=== PATIENT | female | born 1960 | race Caucasian/White ===

== ENCOUNTER 2016-09-01 12:24 | Emergency (ER) | payer OTHER ==
[2016-09-01 12:42] VITALS: BMI 22.0
[2016-09-01] MEDS ORDERED: MAG HYDROX/AL HYDROX/SIMETH 30 ML UNIT-DOSE CUP PO ONE (14:45)
[2016-09-01] MEDS ORDERED: FAMOTIDINE 20 MG/50 ML IVPB 50 ML IVPB ONE ×2 (14:45→14:52)
[2016-09-01] MEDS ORDERED: SODIUM CHLORIDE 1,000 ML IV STA ×2 (14:47→15:46)
[2016-09-01] MEDS ORDERED: ACETAMINOPHEN 325 MG TABLET (FP) PO ONE (14:50)
[2016-09-01] MEDS ORDERED: MAG HYDROX/AL HYDROX/SIMETH 30 ML UNIT-DOSE CUP ONE (14:52)
[2016-09-01] MEDS ORDERED: ACETAMINOPHEN 325 MG TABLET (FP) ONE (14:52)
--- NOTE | 2016-09-01 15:07 | PDOC ---
History of Present Illness - General Chief Complaint: Nausea Stated Complaint: NAUSEA,fever, diabetic Time Seen by Provider: 09/01/16 14:31 History Source: Patient, Family Exam Limitations: Language Barrier - History of Present Illness Initial Comments: 09/01/16 14:59 This is a 55 yo F with pmh of IDDM 2 who presents with nausea and mild epigastric burning since Thu. symptoms have started after a meal, have been constant and aggravated by po intake, which has been very limited since onset. She experienced one episode of nbnb vomiting (small amt) this morning. She has been constipated for 3 days and had a normal nonbloody nonmelenous BM prior to that. She denies dysuria, flank pain, f/c, h/a, chest pain, sob. 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 She does not take nsaids. low grade fever in er 09/01/16 15:09 Past History - Past Medical History Allergies/Adverse Reactions: Allergies Allergy/AdvReac Type Severity Reaction Status Date / Time aspirin Allergy Swelling Verified 09/01/16 12:38 Home Medications: Ambulatory Orders Insulin (Levemir) [Levemir Flexpen -] 30 units SQ DAILY 09/01/16 Mag Hydrox/Al Hydrox/Simeth [Maalox Advanced Suspension] 148 ml PO DAILY #30 oral.susp 09/01/16 Metformin HCl [Glucophage] 1,000 mg PO DAILY 09/01/16 Ranitidine HCl [Zantac] 50 mg IJ BID #60 vial 09/01/16 Diabetes: Yes (iddm) - Psycho/Social/Smoking Cessation Hx Anxiety: No Suicidal Ideation: No Smoking Status: No Smoking History: Never smoked Have you smoked in the past 12 months: No Number of Cigarettes Smoked Daily: 0 Information on smoking cessation initiated: No Hx Alcohol Use: No Drug/Substance Use Hx: No Substance Use Type: None Review of Systems - Review of Systems Able to Perform ROS?: Yes Is the patient limited Greenlandic proficient: Yes Constitutional: Yes: Weight Stable. No: Chills, Fever HEENTM: No: Throat Pain, Difficulty Swallowing Respiratory: No: Cough, Orthopnea, Shortness of Breath Cardiac (ROS): No: Chest Pain, Edema, Irregular Heart Rate, Lightheadedness ABD/GI: Yes: Constipated, Nausea, Vomiting, Abdominal cramping. No: Abdominal Distended, Diarrhea, Difficulty Swallowing, Rectal Bleeding, Tarry Stools : No: Dysuria, Flank Pain Musculoskeletal: No: Joint Swelling Integumentary: No: Bruising, Rash Neurological: No: Headache, Numbness, Paresthesia Psychiatric: No: Anxiety, Stressors Endocrine: No: Change in Weight Hematologic/Lymphatic: No: Anemia, Blood Clots, Easy Bleeding, Easy Bruising All Other Systems: Reviewed and Negative *Physical Exam - Vital Signs Last Vital Signs Temp Pulse Resp BP Pulse Ox 100.3 F H 91 H 18 109/76 100 09/01/16 12:39 09/01/16 12:39 09/01/16 12:39 09/01/16 12:39 09/01/16 12:39 - Physical Exam Comments: 09/01/16 15:03 Geberal: aao x3, nad HEENT: perrla eomi, sclera anicteric cv: rrr s1s2 pulm: cta b/l GI: soft, nontender, nondistended, normoactive bowel sounds, no mass, no organomegaly Neuro: CN II-XII grossly intact Extremities: nonedematous ED Treatment Course - LABORATORY CBC & Chemistry Diagram: 09/01/16 15:00 09/01/16 15:00 - RADIOLOGY Radiology Studies Ordered: Category Date Time Status CHEST X-RAY PORTABLE* [RAD] Stat Radiology 09/01/16 14:44 Ordered Medical Decision Making - Medical Decision Making 09/01/16 15:07 patient presents with clinical picture most consistent with mild gastritis, possible viral gastroenteritis. r/o pancreotitis, esopagitis, acs. -cbc diff, cmp, lipase, trop, ekg, chr -pepcid, maalox, 1L ivf NS 09/01/16 15:40 CXR unremarkable for intrathoracic or mediastinal pathology mild leukocytosis 10.6 with slight left shift cmp unremarkable other than Glucose 320 and pseudo hyponatremia. patient states she forgot to take metformin at home. Will not give insulin, rather patient can take her metformin at home later. Will give another L of IV NS 09/01/16 15:41 09/01/16 15:48 09/01/16 16:09 EKG unremarkable. patient feels better after maalox and pepcid and states she is hungry. she likely has an ulcer and should f/u with pcp/gi, get H pylori testing and take zantac, maalox at home. *DC/Admit/Observation/Transfer Diagnosis at time of Disposition: Gastritis - Discharge Dispostion Disposition: HOME Condition at time of disposition: Good Admit: No - Prescriptions Prescriptions: Mag Hydrox/Al Hydrox/Simeth [Maalox Advanced Suspension] 148 ml PO DAILY #30 oral.susp Ranitidine HCl [Zantac] 50 mg IJ BID #60 vial - Patient Instructions Printed Discharge Instructions: Gastritis Additional Instructions: Your stomach discomfort and nausea are probably due to gastritis. please take Maalox once a day and Zantac twice a day. follow up with primary doctor to get tested for H pylori bacteria and possibly see a Hardware Sales Assistant Take metformin today return to ER if symptoms worsen - Post Discharge Activity Work/School Note: Back to Work
[2016-09-01 15:08] LABS: BASOPHIL 0.5 % (0-2.0); MCH 27.5 pg (25.7-33.7); MCHC 33.1 g/dl (32.0-36.0); MEAN CELL VOLUME 82.9 fl (80-96); MEAN PLT VOLUME 8.7 fl (7.5-11.1); NEUTROPHILS 78.5 % (42.8-82.8); PLATELET COUNT 254 K/MM3 (134-434); RDW 12.2 % (11.6-15.6); WHITE BLOOD COUNT 10.6 K/mm3 (4.0-10.0)
--- NOTE | 2016-09-01 15:21 | PDOC ---
Attending Attestation - Resident Resident Name: ValentinaTia - ED Attending Attestation I have performed the following: I have examined & evaluated the patient, The case was reviewed & discussed with the resident, I agree w/resident's findings & plan, Exceptions are as noted - HPI HPI: 09/01/16 15:20 55-year-old female with history of diabetes, hyperlipidemia presents with 3 days of nausea, vomiting. She reports of intermittent epigastric discomfort and noticed tactile fevers. Patient is a high school music teacher. Denies chest pain or shortness of breath. Denies abdominal pain at this time. - Physicial Exam PE: 09/01/16 15:20 GENERAL: Awake, alert, and fully oriented, in no acute distress. HEAD: No signs of trauma EYES: PERRLA, EOMI, sclera anicteric, conjunctiva clear ENT: Auricles normal inspection, hearing grossly normal, nares patent, oropharynx clear without exudates. NECK: Normal ROM, supple, no lymphadenopathy, JVD, or masses LUNGS: Breath sounds equal, clear to auscultation bilaterally. No wheezes, and no crackles HEART: Regular rate and rhythm, normal S1 and S2, no murmurs, rubs or gallops ABDOMEN: Soft, nontender, normoactive bowel sounds. No guarding, no rebound. No masses EXTREMITIES: Normal range of motion, no edema. No clubbing or cyanosis. No cords, erythema, or tenderness NEUROLOGICAL: Cranial nerves II through XII grossly intact. Normal speech, normal gait SKIN: Warm, Dry, normal turgor, no rashes or lesions noted. - Medical Decision Making 09/01/16 15:20 I agree with the resident that this is likely viral gastritis. Patient has a temperature of 100.3 with some nausea and vomiting. I have low suspicion for acute coronary syndrome. However, we'll obtain one troponin 1 EKG. We'll obtain labs including a lipase. If workup is negative the patient reports feeling better, the patient may be discharged home with symptomatic care. 09/01/16 16:15 ECG is no ischemic changes.
[2016-09-01 15:38] LABS: ALBUMIN 3.5 g/dl (3.4-5.0); ANION GAP 7 (8-16); BILIRUBIN,TOTAL 0.5 mg/dL (0.2-1.0); CALCIUM 9.5 mg/dL (8.5-10.1); CO2 29 mmol/L (21-32); CREATININE 0.9 mg/dL (0.55-1.02); SGOT/AST 18 U/L (15-37); SGPT/ALT 30 U/L (12-78)
[2016-09-01 15:39] LABS: ALK PHOS 114 U/L (45-117); TOT PROT 6.9 g/dl (6.4-8.2); TROPONIN I < 0.02 ng/ml (0.00-0.05)
[2016-09-01 15:41] LABS: GLUCOSE,RANDOM 320 mg/dL (74-106)
[2016-09-01 16:53] VITALS: BP 140/90; PULSE 78; TEMP 98.7
--- NOTE | 2016-09-02 14:40 | EKG ---
Test Reason : Blood Pressure : / mmHG Vent. Rate : 085 BPM Atrial Rate : 085 BPM P-R Int : 132 ms QRS Dur : 084 ms QT Int : 376 ms P-R-T Axes : 064 044 036 degrees QTc Int : 447 ms NORMAL SINUS RHYTHM NORMAL ECG WHEN COMPARED WITH ECG OF 21-AUG-2011 17:52, NO SIGNIFICANT CHANGE WAS FOUND Confirmed by BRANDT DAMICO MD ([id number]) on 09/02/2016 2:40:21 PM Referred By: Confirmed By:BRANDT DAMICO MD
== END 2016-09-01 17:01 | disposition home or self-care (01) ==
LOC: JER 12:24
PROC: 3E0337Z Introduction of Electrolytic and Water Balance Substance into Peripheral Vein, Percutaneous Approach (ICD-10-PCS; principal; 2016-09-01)
PROC: 3E033GC Introduction of Other Therapeutic Substance into Peripheral Vein, Percutaneous Approach (ICD-10-PCS; 2016-09-01)
DX: K29.70 Gastritis, unspecified, without bleeding (principal)
CPT/HCPCS: 36415; 71010-TC; 80053; 82550; 83690; 84484; 85025; 93005; 93010; 96361; 96365; 99284-25

== ENCOUNTER 2016-10-17 18:28 | Emergency (ER) | payer OTHER ==
[2016-10-17 18:35] VITALS: BMI 19.8
--- NOTE | 2016-10-17 18:54 | PDOC ---
History of Present Illness <Lexie Garcia - Last Filed: 10/17/16 20:50> - General History Source: Patient, Family Exam Limitations: Language Barrier - History of Present Illness Initial Comments: 10/17/16 19:52 This 55yo F with PMHX DM and 2 C-sections presents due to numbness and tingling of her right fingertips and right foot & toes. States this began 1 week ago. Has been intermittent (lasting 5mins then returning 4-5hrs later), and has been getting better. Nothing makes it worse, and only stretching it makes it better. Pt states she has episodes of garbled speech (confirmed by her son), one episode of diarrhea 1 week ago. Denies weakness, pain, digits becoming cyanotic/ blue, CP, SOB, dysphagia, vision changes, BOWMAN, N/V, abdominal pain, constipation , urinary changes/burning. States she is allergic to ASA Denies tobacco or alcohol use. Timing/Duration: 1 week Associated Symptoms: denies: chest pain, cough, diaphoresis, fever/chills, headaches, loss of appetite, nausea/vomiting, shortness of breath, syncope, weakness <Loi Bains - Last Filed: 10/17/16 22:53> - General Chief Complaint: CVA/TIA Stated Complaint: NUMBNESS IN FINGERS Time Seen by Provider: 10/17/16 18:53 NIH Stroke Scale - Last Known Well Date/Time & Onset Date Last Known Well: 10/09/16 - Initial Evaluation Level of consciousness: Alert Ask patient the month and their age: Answers both correctly Ask patient to open & close eyes; make fist and let go: Obeys both correctly Best gaze (horizontal eye movement): Normal Visual field testing: No visual field loss Facial paresis (Show teeth/raise eyebrows/close eyes tight): Normal symmetrical movement Motor Function: Left Arm: Normal Motor Function: Right Arm: Normal (extends arm 90 (or 45) degrees for 10 seconds without drift Motor Function: Left Leg: Normal (extends leg 30 degrees for 5 seconds without drift) Motor Function: Right Leg: Normal (extends leg 30 degrees for 5 seconds without drift) Limb Ataxia: No ataxia Sensory(Use pinprick test arms,legs,trunk,face/side to side): Normal Best language (Describe picture, name items, read sentences): Mild to moderate aphasia Dysarthria (read several words): Mild to moderate slurring of words Extinction and Inattention: No abnormality - Total Score NIH Stroke Scale Score: 2 <Loi Bains - Last Filed: 10/17/16 22:53> Past History <Lexie Garcia - Last Filed: 10/17/16 20:50> - Travel Traveled outside of the country in the last 30 days: No Close contact w/someone who was outside of country & ill: No - Past Medical History Cancer: No Cardiac Disorders: No Hx Myocardial Infarction: No CVA: No Diabetes: Yes (iddm) HTN: No Lung CA: No - Immunization History Immunization Up to Date: Yes - Psycho/Social/Smoking Cessation Hx Anxiety: No Suicidal Ideation: No Smoking Status: No Smoking History: Never smoked Have you smoked in the past 12 months: No Number of Cigarettes Smoked Daily: 0 Hx Alcohol Use: No Drug/Substance Use Hx: No Substance Use Type: None <Loi Bains - Last Filed: 10/17/16 22:53> - Past Medical History Allergies/Adverse Reactions: Allergies Allergy/AdvReac Type Severity Reaction Status Date / Time aspirin Allergy Swelling Verified 10/17/16 18:32 Home Medications: Ambulatory Orders Insulin Glargine,Hum.rec.anlog [Lantus Solostar PEN (NF)] 30 units SQ HS Levofloxacin [Levaquin] 750 mg PO DAILY #10 tablet 10/17/16 Review of Systems - Review of Systems Able to Perform ROS?: Yes Is the patient limited Welsh proficient: Yes Constitutional: No: Chills, Diaphoresis, Fever, Weakness HEENTM: Yes: Other (perioral numbness). No: Eye Pain, Blurred Vision, Recent change in vision, Double Vision, Ear Pain, Tinnitus, Difficulty Swallowing, Mouth Swelling Respiratory: No: Cough, Shortness of Breath, Productive cough Cardiac (ROS): No: Chest Pain, Irregular Heart Rate, Lightheadedness, Palpitations, Syncope ABD/GI: No: Constipated, Nausea, Vomiting, Abdominal cramping : No: Burning, Dysuria, Discharge Musculoskeletal: No: Back Pain, Joint Pain, Muscle Pain, Muscle Weakness, Joint Stiffness Neurological: Yes: Numbness, Paresthesia, Tingling. No: Headache, Pre-Existing Deficit, Seizure, Tremors, Weakness, Unsteady Gait, Ataxia, Dizziness All Other Systems: Reviewed and Negative <Loi Bains - Last Filed: 10/17/16 22:53> *Physical Exam - Vital Signs Last Vital Signs Temp Pulse Resp BP Pulse Ox 98.6 F 93 H 18 119/67 99 10/17/16 18:32 10/17/16 18:32 10/17/16 18:32 10/17/16 18:32 10/17/16 18:56 <RadhaLexie - Last Filed: 10/17/16 20:50> - Vital Signs Last Vital Signs Temp Pulse Resp BP Pulse Ox 98.6 F 93 H 18 119/67 99 10/17/16 18:32 10/17/16 18:32 10/17/16 18:32 10/17/16 18:32 10/17/16 18:32 - Physical Exam General Appearance: Yes: Nourished, Appropriately Dressed HEENT: positive: EOMI, DINA, Normal Voice, Symmetrical, Pharynx Normal, Hearing Grossly Normal. negative: Pale Conjunctivae, Scleral Icterus (R), Scleral Icterus (L), Muffled/Hoarse voice, Pharyngeal Erythema, Tonsillar Exudate, Tonsillar Erythema, Excessive drooling Neck: positive: Trachea midline Respiratory/Chest: positive: Lungs Clear, Normal Breath Sounds. negative: Rapid RR, Decreased Breath Sounds, Crackles, Rales, Rhonchi, Stridor, Wheezing Cardiovascular: positive: Regular Rhythm, Regular Rate. negative: Murmur, Diastolic Murmur, Systolic Murmur, Irregularly Irregular, Irregular Gastrointestinal/Abdominal: positive: Normal Bowel Sounds, Soft. negative: Tenderness, Hepatomegaly, Spleenomegaly Lymphatic: negative: Adenopathy, Tenderness Musculoskeletal: positive: Normal Inspection. negative: CVA Tenderness, Decreased Range of Motion, Muscle Spasm, Vertebral Tenderness Extremity: positive: Normal Capillary Refill Neurologic: positive: machinist helper II-XII NML intact, Fully Oriented, Alert, Normal Mood/ Affect, Normal Response, Motor Strength 5/5. negative: EOM Palsy, Facial Droop , Numbness, Sensory Deficit, Confused, Disoriented, Depressed Affect <Loi Bains - Last Filed: 10/17/16 22:53> Heart Score/ECG Review - ECG Intrepretation Comment:: 10/17/16 20:14 ECG obtained a 19:57 Normal sinus at 91 bpm <Lexie Garcia - Last Filed: 10/17/16 20:50> ED Treatment Course - LABORATORY CBC & Chemistry Diagram: 10/17/16 19:53 10/17/16 19:53 - ADDITIONAL ORDERS Additional order review: 10/17/16 19:53 RBC 4.37 MCV 84.8 MCHC 33.6 RDW 12.9 MPV 7.6 D Neutrophils % 62.3 D Lymphocytes % 26.7 D Monocytes % 8.9 Eosinophils % 0.9 D Basophils % 1.2 - RADIOLOGY Radiograph Interpretation: 10/17/16 20:33 Chest X-ray as reviewed by Dr. Hernandez reports no acute pathology. 10/17/16 20:[address] as reviewed by Dr. Hernandez reports no acute intracranial lesion or hemorrhage. - Medications Given in the ED: ED Medications Discontinued Medications Generic Name Dose Route Start Last Admin Trade Name Freq PRN Reason Stop Dose Admin Pregabalin 75 mg 10/17/16 19:50 10/17/16 20:05 Lyrica - PO 10/17/16 19:51 75 mg ONCE ONE Administration <Lexie Garcia - Last Filed: 10/17/16 20:50> - LABORATORY CBC & Chemistry Diagram: 10/17/16 19:53 10/17/16 19:53 <Loi Bains - Last Filed: 10/17/16 22:53> Medical Decision Making - Medical Decision Making 10/17/16 20:00 This 55yo F with past medical hx DM and 2 C-sections presents due to numbness and tingling of her right fingertips and right ankle to toes. Diabetic neuropathy -IVF, CBC w/ diff, BMP, glucose levels, HbA1C level -lyrica r/o stroke -NIHSS: 2 -CT head w/o contrast -neuro checks q2h r/o UTI -U/A, CXR r/o cardiac etiology -ECG 10/17/16 21:09 Pt's son endorses that his mother has not taken her DM medication for 3 months because she ran out and did not have health insurance to afford meds or doctor visit. States she has insurance now, and will return to PCP Dr. Kerns Thursday for refill. Also advised patient and family to be compliant with medication and antibiotics. <Loi Bains - Last Filed: 10/17/16 22:53> *DC/Admit/Observation/Transfer - Attestations Scribe Attestion: 10/17/16 20:14 Documentation prepared by Lexie Garcia, acting as medical review specialist for Loi Bains DO. <Lexie Garcia - Last Filed: 10/17/16 20:50> - Discharge Dispostion Admit: No - Attestations Physician Attestion: 10/17/16 18:54 I, Dr. Loi Bains, attest that this document has been prepared under my direction and personally reviewed by me in its entirety. I further attest, that it accurately reflects all work, treatment, procedures and medical decision -making performed by me. <Loi Bains - Last Filed: 10/17/16 22:53> Diagnosis at time of Disposition: Medical non-compliance, Urinary (tract) obstruction Peripheral neuropathy Qualifiers: Peripheral neuropathy type: polyneuropathy, unspecified Qualified Code(s): G62.9 - Polyneuropathy, unspecified Diabetes mellitus out of control Qualifiers: Diabetes mellitus type: type 2 Diabetes mellitus complication status: with unspecified complications Diabetes mellitus fpc insulin use: with fpc use Qualified Code(s): E11.8 - Type 2 diabetes mellitus with unspecified complications - Discharge Dispostion Disposition: HOME Condition at time of disposition: Improved - Prescriptions Prescriptions: Levofloxacin [Levaquin] 750 mg PO DAILY #10 tablet - Referrals Referrals: Fernie Kerns MD [Primary Care Provider] - - Patient Instructions Printed Discharge Instructions: Urinary Tract Infection, DI for Urinary Tract Infection (UTI), Diabetic Neuropathy, Complications of Type 2 Diabetes Additional Instructions: Estefania- You have to take better care of yourself. Keep your appointment and get back on your medications as soon as possible. Return to us if worse or new problems occur. Best- Dr. Loi Bains
[2016-10-17] MEDS ORDERED: PREGABALIN 100 MG CAPSULE PO ONE (19:50)
[2016-10-17 19:58] LABS: BASOPHIL 1.2 % (0-2.0); EOSINOPHIL 0.9 % (0-4.5); MCH 28.5 pg (25.7-33.7); MCHC 33.6 g/dl (32.0-36.0); MEAN CELL VOLUME 84.8 fl (80-96); MEAN PLT VOLUME 7.6 fl (7.5-11.1); NEUTROPHILS 62.3 % (42.8-82.8); PLATELET COUNT 313 K/MM3 (134-434); RDW 12.9 % (11.6-15.6); WHITE BLOOD COUNT 8.7 K/mm3 (4.0-10.0)
[2016-10-17] MEDS ORDERED: PREGABALIN 50 MG CAPSULE ONE (19:58)
[2016-10-17] MEDS ORDERED: PREGABALIN 25 MG CAPSULE ONE (19:59)
[2016-10-17 20:21] LABS: URINE APPEARANCE CLEAR; URINE BILIRUBIN NEGATIVE (NEGATIVE); URINE BLOOD NEGATIVE (NEGATIVE); URINE COLOR LTYELLOW; URINE GLUCOSE (UA) 3+ (NEGATIVE); URINE KETONE NEGATIVE (NEGATIVE); URINE LEUK ESTERASE TRACE (NEGATIVE); URINE NITRITE POSITIVE (NEGATIVE); URINE PROTEIN NEGATIVE (NEGATIVE); URINE UROBILINOGEN NEGATIVE mg/dL (0.2-1.0)
[2016-10-17 20:23] LABS: ALK PHOS 126 U/L (45-117); ANION GAP 5 (8-16); BILIRUBIN,TOTAL 0.2 mg/dL (0.2-1.0); CALCIUM 9.1 mg/dL (8.5-10.1); CO2 28 mmol/L (21-32); CREATININE 0.9 mg/dL (0.55-1.02); SGOT/AST 8 U/L (15-37); SGPT/ALT 23 U/L (12-78); TOT PROT 6.6 g/dl (6.4-8.2)
[2016-10-17 20:27] LABS: GLUCOSE,RANDOM 345 mg/dL (74-106)
[2016-10-17 20:27] LABS: URINE BACTERIA FEW /hpf (NONE SEEN); URINE MUCUS RARE; URINE RBC 1 /hpf (0-3); URINE WBC 13 /hpf (3-5)
[2016-10-17] MEDS ORDERED: SODIUM CHLORIDE 2,000 ML IV STA (20:27)
[2016-10-17] MEDS ORDERED: LEVOFLOXACIN 750 MG IVPB 150 ML IVPB ONE ×2 (20:32→20:55)
[2016-10-17 23:02] VITALS: BP 125/80; PULSE 80; TEMP 98.2
--- NOTE | 2016-10-19 08:18 | EKG ---
Test Reason : Blood Pressure : / mmHG Vent. Rate : 091 BPM Atrial Rate : 091 BPM P-R Int : 128 ms QRS Dur : 080 ms QT Int : 352 ms P-R-T Axes : 059 052 039 degrees QTc Int : 432 ms NORMAL SINUS RHYTHM NORMAL ECG WHEN COMPARED WITH ECG OF 01-SEP-2016 15:54, NO SIGNIFICANT CHANGE WAS FOUND Confirmed by FERNANDO STILES MD ([id number]) on 10/19/2016 8:18:05 AM Referred By: Confirmed By:FERNANDO STILES MD
== END 2016-10-17 23:03 | disposition home or self-care (01) ==
LOC: JER 18:28
PROC: 3E03329 Introduction of Other Anti-infective into Peripheral Vein, Percutaneous Approach (ICD-10-PCS; principal; 2016-10-17)
PROC: 3E0337Z Introduction of Electrolytic and Water Balance Substance into Peripheral Vein, Percutaneous Approach (ICD-10-PCS; 2016-10-17)
DX: E11.40 Type 2 diabetes mellitus with diabetic neuropathy, unspecified (principal); Z79.4 Long term (current) use of insulin; Z91.14 Patient's other noncompliance with medication regimen; N13.9 Obstructive and reflux uropathy, unspecified; Z88.6 Allergy status to analgesic agent
CPT/HCPCS: 36415; 70450-TC; 71020-TC; 80053; 81003; 81015; 83036; 85025; 87086; 87186; 93005; 93010; 99285-25

== ENCOUNTER 2016-11-24 13:44 | Emergency (ER) | payer OTHER ==
[2016-11-24 13:50] VITALS: BMI 19.0
--- NOTE | 2016-11-24 14:31 | PDOC ---
History of Present Illness - General History Source: Patient, Family Exam Limitations: No Limitations - History of Present Illness Initial Comments: 11/24/16 16:01 The patient is a 55 year old female, with a significant past medical history of diabetes, who presents to the emergency department complaining of numbness and tingling for approximately 2 weeks. The patient reports she has noted numbness and tingling to the right arm and pain in her calves bilaterally. As per son, patient reports she cannot move or talk when she experiences her episodes of numbness. Currently patient reports pain in her fingers, right worse than left. Patient reports she was recently started on Metformin and her sugar level usually runs in the 200s. Patient admits she does not check her sugar daily. She reports intermittent chills and diaphoresis. She denies any chest pain, shortness of breath, or palpitations. She denies any fever, cough, headache, dizziness, or back pain. She denies any dysuria, hematuria, frequency, or urgency. She denies any nausea, vomiting, diarrhea, constipation, melena, or hematochezia. As per son, the patient has been losing weight during the past 5 years. Patient denies any recent travel, sick contacts, or recent hospitalizations. Allergies: Aspirin Past Surgical History: None reported Social History: Non smoker. No ETOH or recreational drug use. PCP: Dr. Kerns Manager Mobility: Dr. Arias <Johan Herring - Last Filed: 11/24/16 18:07> <Charlotte Castañeda - Last Filed: 11/24/16 18:09> - General Chief Complaint: Pain Stated Complaint: LEG PAIN Past History <Johan Herring - Last Filed: 11/24/16 18:07> - Past Medical History Cancer: No Cardiac Disorders: No CVA: No Diabetes: Yes (iddm) HTN: No Lung CA: No - Immunization History Immunization Up to Date: Yes - Psycho/Social/Smoking Cessation Hx Anxiety: No Suicidal Ideation: No Smoking Status: No Smoking History: Never smoked Have you smoked in the past 12 months: No Number of Cigarettes Smoked Daily: 0 Information on smoking cessation initiated: No Hx Alcohol Use: No Drug/Substance Use Hx: No Substance Use Type: None <Charlotte Castañeda - Last Filed: 11/24/16 18:09> - Past Medical History Allergies/Adverse Reactions: Allergies Allergy/AdvReac Type Severity Reaction Status Date / Time aspirin Allergy Swelling Verified 11/24/16 13:50 Home Medications: Ambulatory Orders Insulin Glargine,Hum.rec.anlog [Lantus Solostar PEN (NF)] 30 units SQ HS Review of Systems - Review of Systems Able to Perform ROS?: Yes Comments:: 11/24/16 16:03 GENERAL/CONSTITUTIONAL: Yes: +chills. No fever. No weakness. HEAD, EYES, EARS, NOSE AND THROAT: No change in vision. No ear pain or discharge. No sore throat. CARDIOVASCULAR: Yes: +diaphoresis. No chest pain or shortness of breath. RESPIRATORY: No cough, wheezing, or hemoptysis. GASTROINTESTINAL: No nausea, vomiting, diarrhea or constipation. GENITOURINARY: No dysuria, frequency, or change in urination. MUSCULOSKELETAL: Yes: +hand pain, +right arm numbness/tingling, +calf pain bilaterally. No joint or muscle swelling or pain. No neck or back pain. SKIN: No rash NEUROLOGIC: Yes: +numbness/+tingling to the upper extremities.No headache, vertigo, loss of consciousness, or change in strength/sensation. ENDOCRINE: Yes: +increased weightloss. No increased thirst. HEMATOLOGIC/LYMPHATIC: No anemia, easy bleeding, or history of blood clots. ALLERGIC/IMMUNOLOGIC: No hives or skin allergy. <Johan Herring - Last Filed: 11/24/16 18:07> *Physical Exam - Vital Signs Last Vital Signs Temp Pulse Resp BP Pulse Ox 98.5 F 121 H 18 95/57 98 11/24/16 13:46 11/24/16 13:46 11/24/16 13:46 11/24/16 13:46 11/24/16 13:46 - Physical Exam Comments: 11/24/16 16:07 GENERAL: Awake, alert, and fully oriented, in no acute distress HEAD: No signs of trauma EYES: PERRLA, EOMI, sclera anicteric, conjunctiva clear ENT: Auricles normal inspection, hearing grossly normal, nares patent, oropharynx clear without exudates. Moist mucosa NECK: Normal ROM, supple, no lymphadenopathy, JVD, or masses LUNGS: Breath sounds equal, clear to auscultation bilaterally. No wheezes, and no crackles HEART: Regular rate and rhythm, normal S1 and S2, no murmurs, rubs or gallops ABDOMEN: Soft, nontender, normoactive bowel sounds. No guarding, no rebound. No masses EXTREMITIES: Normal range of motion, no edema. No clubbing or cyanosis. 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 Cranial nerves II through XII grossly intact. Normal speech, normal gait. Negative tinels, negative phalens. SKIN: Warm, Dry, normal turgor, no rashes or lesions noted. <Johan Herring - Last Filed: 11/24/16 18:07> - Vital Signs Last Vital Signs Temp Pulse Resp BP Pulse Ox 98.5 F 121 H 18 95/57 98 11/24/16 13:46 11/24/16 13:46 11/24/16 13:46 11/24/16 13:46 11/24/16 13:46 <Charlotte Castañeda - Last Filed: 11/24/16 18:09> ED Treatment Course - LABORATORY CBC & Chemistry Diagram: 11/24/16 14:52 11/24/16 14:52 - ADDITIONAL ORDERS Additional order review: Laboratory Results 11/24/16 11/24/16 14:52 14:52 Sodium 132 L Potassium 4.2 Chloride 94 L Carbon Dioxide 24 Anion Gap 14 BUN 19 H D Creatinine 0.9 Creat Clearance w eGFR > 60 Random Glucose 414 H* Calcium 9.7 Magnesium 1.9 Total Bilirubin 0.6 D AST 6 L D ALT 14 D Alkaline Phosphatase 77 D Total Protein 6.7 Albumin 3.4 TSH 1.60 11/24/16 14:52 RBC 4.75 MCV 82.9 MCHC 34.8 RDW 12.9 MPV 8.5 D Neutrophils % 74.4 Lymphocytes % 16.2 D Monocytes % 8.4 Eosinophils % 0.2 Basophils % 0.8 - RADIOLOGY Radiograph Interpretation: 11/24/16 18:06 EXAM: Bilateral lower extremity venous ultrasound INTERPRETED BY: Dr. Galloway REVIEWED BY: Dr. Castañeda IMPRESSION: There is no sonographic evidence of deep vein thrombosis involving either leg. The greater saphenous veins appear patent bilaterally. The smaller superficial veins demonstrate no obvious thrombosis. If there is clinical concern for possible isolated deep calf vein thrombosis or if there is a clinical diagnosis of uncomplicated superficial thrombophlebitis, then correlation with follow up sonography is suggested in approximately 3-7 days. There is no obvious popliteal cyst. No DVT is identified involving either leg. - Medications Given in the ED: ED Medications Discontinued Medications Generic Name Dose Route Start Last Admin Trade Name Saadia PRN Reason Stop Dose Admin Sodium Chloride 1,000 ml 11/24/16 14:49 11/24/16 15:05 Normal Saline - IV 11/24/16 14:50 1,000 ml ONCE ONE Administration <Johan Herring - Last Filed: 11/24/16 18:07> - LABORATORY CBC & Chemistry Diagram: 11/24/16 14:52 11/24/16 14:52 <Charlotte Castañeda - Last Filed: 11/24/16 18:09> Medical Decision Making - Medical Decision Making 11/24/16 18:01 55yo female with DM now with intermittent episodes of numbness and calf pain -labs -suspect poss diabetic neuropathy -dvt study of LE -ivf hydration -monitor and reassess 11/24/16 18:02 discussed lab results with the patient. pt states feeling better discussed dvt study results. negative for dvt. Discussed glucose control. Pt will need to follow up with her PMD this week. Discussed need to check glucose QID at home and keep a book of readings. Recommended following up with PMD with the book this week. Recommended pt see her eye doctor and her inserter soon as well. Discussed dietary changes to assist with glucose control. Pt and son verbalize all understanding. Pt stable for d/c to home. Answered all questions. Discussed all reasons to return to the ED and need for follow up. <Charlotte Castañeda - Last Filed: 11/24/16 18:09> *DC/Admit/Observation/Transfer - Attestations Scribe Attestion: 11/24/16 18:08 Documentation prepared by Johan Herring, acting as medical insurance coding specialist for Charlotte Castañeda DO. <Johan Herring - Last Filed: 11/24/16 18:07> - Discharge Dispostion Admit: No - Attestations Physician Attestion: 11/24/16 18:05 I, Dr. Charlotte Castañeda, DO, attest that this document has been prepared under my direction and personally reviewed by me in its entirety. I further attest, that it accurately reflects all work, treatment, procedures and medical decision -making performed by me. <Charlotte Castañeda - Last Filed: 11/24/16 18:09> Diagnosis at time of Disposition: Hyperglycemia, Paresthesia - Discharge Dispostion Disposition: HOME Condition at time of disposition: Stable - Referrals Referrals: Fernie Kerns MD [Primary Care Provider] - - Patient Instructions Printed Discharge Instructions: How to Check Your Blood Glucose, Diabetic Neuropathy
[2016-11-24] MEDS ORDERED: SODIUM CHLORIDE 0.9% 1000 ML INFUS.BAG IV ONE ×3 (14:49→18:09)
[2016-11-24 15:28] LABS: BASOPHIL 0.8 % (0-2.0); EOSINOPHIL 0.2 % (0-4.5); MCH 28.9 pg (25.7-33.7); MCHC 34.8 g/dl (32.0-36.0); MEAN CELL VOLUME 82.9 fl (80-96); MEAN PLT VOLUME 8.5 fl (7.5-11.1); NEUTROPHILS 74.4 % (42.8-82.8); PLATELET COUNT 295 K/MM3 (134-434); RDW 12.9 % (11.6-15.6); WHITE BLOOD COUNT 11.3 K/mm3 (4.0-10.0)
[2016-11-24 15:38] LABS: ALBUMIN 3.4 g/dl (3.4-5.0); ALK PHOS 77 U/L (45-117); ANION GAP 14 (8-16); BILIRUBIN,TOTAL 0.6 mg/dL (0.2-1.0); CALCIUM 9.7 mg/dL (8.5-10.1); CO2 24 mmol/L (21-32); CREATININE 0.9 mg/dL (0.55-1.02); MAGNESIUM 1.9 mg/dL (1.8-2.4); SGOT/AST 6 U/L (15-37); SGPT/ALT 14 U/L (12-78); TOT PROT 6.7 g/dl (6.4-8.2)
[2016-11-24 15:44] LABS: GLUCOSE,RANDOM 414 mg/dL (74-106)
[2016-11-24 16:56] LABS: URINE APPEARANCE CLEAR; URINE BILIRUBIN NEGATIVE (NEGATIVE); URINE BLOOD 1+ (NEGATIVE); URINE COLOR STRAW; URINE GLUCOSE (UA) 3+ (NEGATIVE); URINE KETONE 1+ (NEGATIVE); URINE NITRITE NEGATIVE (NEGATIVE); URINE PROTEIN NEGATIVE (NEGATIVE); URINE UROBILINOGEN NEGATIVE mg/dL (0.2-1.0)
[2016-11-24 17:05] LABS: URINE HYALINE CAST 1 /lpf; URINE RBC 1 /hpf (0-3); URINE WBC 7 /hpf (3-5)
[2016-11-24] MEDS ORDERED: INSULIN (NOVOLOG) ASPART 100 UNITS/ML 10ML VIAL SQ ONE (17:24)
[2016-11-24 18:33] VITALS: TEMP 98.4
[2016-11-24 20:07] VITALS: BP 152/85; PULSE 105
== END 2016-11-24 20:07 | disposition home or self-care (01) ==
LOC: JER 13:44
DX: E11.65 Type 2 diabetes mellitus with hyperglycemia (principal); Z79.4 Long term (current) use of insulin; Z79.84 Long term (current) use of oral hypoglycemic drugs; M79.604 Pain in right leg; M79.605 Pain in left leg
CPT/HCPCS: 36415; 80053; 81003; 81015; 83735; 84443; 85025; 93970-TC; 99285-25

== ENCOUNTER 2018-05-12 20:13 | Emergency (ER) | payer OTHER ==
[2018-05-12 20:32] VITALS: BP 129/80; PULSE 100; TEMP 98.3; BMI 22.6
== END 2018-05-13 00:52 | disposition left against medical advice (07) ==
LOC: JER 20:13
DX: Z53.21 Procedure and treatment not carried out due to patient leaving prior to being seen by health care provider (principal)
CPT/HCPCS: 99281-25

== ENCOUNTER 2018-05-16 15:18 | Emergency (ER) | payer OTHER ==
[2018-05-16 15:30] VITALS: BMI 22.6
--- NOTE | 2018-05-16 16:14 | PDOC ---
History of Present Illness - General Chief Complaint: Headache Stated Complaint: HEADACHE/ COLD SYMPTOMS Time Seen by Provider: 05/16/18 16:13 History Source: Patient - History of Present Illness Initial Comments: 05/16/18 18:14 57-year-old female complaining of left temporal area headache for the last 4 days. Denies nasal congestion, fever/chills, nausea, vomiting, chest pain, dizziness, diaphoresis,abdominal pain, urinary symptoms. Past medical history of IDDM Past History - Past Medical History Allergies/Adverse Reactions: Allergies Allergy/AdvReac Type Severity Reaction Status Date / Time aspirin Allergy Swelling Verified 05/16/18 15:30 Home Medications: Ambulatory Orders Acetaminophen 650 mg PO QID PRN #30 tablet 05/16/18 Cephalexin Monohydrate [Keflex -] 500 mg PO BID #20 capsule 05/16/18 Insulin Glargine,Hum.rec.anlog [Basaglar Kwikpen U-100] 25 unit SQ HS 05/16/18 Cancer: No Cardiac Disorders: No CVA: No COPD: No Diabetes: Yes (iddm) HTN: No Lung CA: No - Immunization History Immunization Up to Date: Yes - Suicide/Smoking/Psychosocial Hx Smoking Status: No Smoking History: Never smoked Have you smoked in the past 12 months: No Number of Cigarettes Smoked Daily: 0 Hx Alcohol Use: No Drug/Substance Use Hx: No Substance Use Type: None Review of Systems - Review of Systems Able to Perform ROS?: Yes Is the patient limited Croatian proficient: No Constitutional: No: Symptoms Reported, See HPI, Chills, Diaphoresis, Fever, Loss of Appetite, Malaise, Night Sweats, Weakness, Weight Stable, Unintentional Wgt. Loss, Unexplained wgt Loss, Other HEENTM: No: Symptoms Reported, See HPI, Eye Pain, Blurred Vision, Tearing, Recent change in vision, Double Vision, Cataracts, Ear Pain, Ocular Prothesis, Ear Discharge, Nose Pain, Nose Congestion, Tinnitus, Nose Bleeding, Hearing Loss , Throat Pain, Throat Swelling, Mouth Pain, Dental Problems, Difficulty Swallowing, Mouth Swelling, Other Respiratory: No: Symptoms reported, See HPI, Cough, Orthopnea, Shortness of Breath, SOB with Exertion, SOB at Rest, Stridor, Wheezing, Productive cough, Hemoptysis, Other ABD/GI: No: Symptoms Reported, See HPI, Abdominal Distended, Abd. Pain w/ defecation, Blood Streaked Bowels, Constipated, Diarrhea, Difficulty Swallowing , Nausea, Poor Appetite, Poor Fluid Intake, Rectal Bleeding, Vomiting, Indigestion, Abdominal cramping, Tarry Stools, Other Neurological: Yes: Headache. No: Symptoms reported, See HPI, Numbness, Paresthesia, Pre-Existing Deficit, Seizure, Tingling, Tremors, Weakness, Unsteady Gait, Ataxia, Dizziness, Other Psychiatric: No: Anxiety, Depression, Frequent Crying, Stressors, Sleep Pattern Change, Emotional Problems, Mood Swings, Change in Appetite, Other *Physical Exam - Vital Signs Last Vital Signs Temp Pulse Resp BP Pulse Ox 98.0 F 99 H 18 145/83 99 05/16/18 15:28 05/16/18 15:28 05/16/18 15:28 05/16/18 15:28 05/16/18 15:28 - Physical Exam General Appearance: Yes: Appropriately Dressed Respiratory/Chest: positive: Lungs Clear, Normal Breath Sounds Moderate Sedation - Procedure Monitoring Vital Signs: Procedure Monitoring Vital Signs Temperature 98.0 F 05/16/18 15:28 Pulse Rate 99 H 05/16/18 15:28 Respiratory Rate 18 05/16/18 15:28 Blood Pressure 145/83 05/16/18 15:28 O2 Sat by Pulse Oximetry (%) 99 05/16/18 15:28 ED Treatment Course - LABORATORY CBC & Chemistry Diagram: 05/16/18 17:10 05/16/18 17:10 Progress Note - Progress Note Progress Note: A: headache; Hyperglycemia; uti P: labs ct head and sinus : negative IVF UA +2 WBC 101: will treat. likely the reason why patient is hyperglycemic. Medical Decision Making - Medical Decision Making 05/16/18 17:37 Ct sinuses& head : Within the base of the right maxillary sinus there are 2 ovoid soft tissue filling defects consistent with mucous retention cyst versus polyps. The remainder of the paranasal sinuses are clear. The visualized bony structures are within normal limits. The visualized soft tissues are unremarkable. Negative unenhanced CT of the brain. *DC/Admit/Observation/Transfer Diagnosis at time of Disposition: Hyperglycemia Headache Qualifiers: Headache type: unspecified Headache chronicity pattern: acute headache Intractability: not intractable Qualified Code(s): R51 - Headache UTI (urinary tract infection) Qualifiers: Urinary tract infection type: acute cystitis Hematuria presence: without hematuria Qualified Code(s): N30.00 - Acute cystitis without hematuria - Discharge Dispostion Disposition: HOME - Prescriptions Prescriptions: Acetaminophen 650 mg PO QID PRN #30 tablet PRN Reason: Pain Cephalexin Monohydrate [Keflex -] 500 mg PO BID #20 capsule - Referrals Referrals: Fernie Kerns MD [Primary Care Provider] - - Patient Instructions Printed Discharge Instructions: Urinary Tract Infection Additional Instructions: drink plenty of fluids take cephalexin as prescribed monitor your blood sugar at home. follow up with your doctor as soon as possible. - Post Discharge Activity Forms/Work/School Notes: Back to Work
[2018-05-16] MEDS ORDERED: IBUPROFEN 600 MG TABLET (FP) PO ONE (16:22)
[2018-05-16] MEDS ORDERED: SODIUM CHLORIDE 1,000 ML IV STA (16:44)
[2018-05-16 17:29] LABS: BASO % 0.9 % (0-2.0); EOS % 1.9 % (0-4.5); HEMATOCRIT 36.5 % (32.4-45.2); HEMOGLOBIN 12.5 GM/dL (10.7-15.3); LYMPH % 16.1 % (8-40); MCH 28.3 pg (25.7-33.7); MCHC 34.2 g/dl (32.0-36.0); MEAN CELL VOLUME 82.9 fl (80-96); MEAN PLT VOLUME 7.9 fl (7.5-11.1); MONO % 6.2 % (3.8-10.2); NEUT % 74.9 % (42.8-82.8); PLATELET COUNT 317 K/MM3 (134-434); RDW 13.3 % (11.6-15.6); WHITE BLOOD COUNT 11.5 K/mm3 (4.0-10.0)
[2018-05-16 17:30] LABS: URINE APPEARANCE CLOUDY; URINE BILIRUBIN NEGATIVE (<2.0 mg/dL); URINE COLOR YELLOW; URINE GLUCOSE (UA) 3+ (NEGATIVE); URINE KETONE NEGATIVE (NEGATIVE); URINE LEUK ESTERASE 2+ (NEGATIVE); URINE NITRITE NEGATIVE (NEGATIVE); URINE PROTEIN 1+ (NEGATIVE); URINE UROBILINOGEN NEGATIVE mg/dL (0.2-1.0)
[2018-05-16 17:40] LABS: EPI CELLS RARE /HPF (FEW); URINE BACTERIA FEW /hpf (NONE SEEN)
[2018-05-16 17:41] LABS: VENOUS PC02 52.3 mmHg (38-52); VENOUS PH 7.34 (7.32-7.42)
[2018-05-16 17:46] LABS: VENOUS PO2 12.9 mmHg (28-48)
[2018-05-16 17:49] LABS: ALBUMIN 3.7 g/dl (3.4-5.0); ALK PHOS 80 U/L (45-117); ANION GAP 7 MMOL/L (8-16); BILIRUBIN,TOTAL 0.3 mg/dL (0.2-1); BLOOD UREA NITROGEN 26 mg/dL (7-18); CALCIUM 9.5 mg/dL (8.5-10.1); CHLORIDE 102 mmol/L (98-107); CO2 29 mmol/L (21-32); CREATININE 1.2 mg/dL (0.55-1.3); POTASSIUM 4.2 mmol/L (3.5-5.1); SGOT/AST 11 U/L (15-37); SGPT/ALT 29 U/L (13-61); SODIUM 137 mmol/L (136-145); TOT PROT 7.6 g/dl (6.4-8.2)
[2018-05-16 18:00] LABS: GLUCOSE,RANDOM 351 mg/dL (74-106)
[2018-05-16] MEDS ORDERED: ACETAMINOPHEN 1000 MG/100 ML VIAL (NON FORMULARY) IVPB ONE (18:03)
[2018-05-16] MEDS ORDERED: SODIUM CHLORIDE 1,000 ML IV SCH (18:15)
[2018-05-16 18:18] LABS: ACETONE SERUM NEGATIVE (NEGATIVE)
[2018-05-16] MEDS ORDERED: ACETAMINOPHEN INJECTION 100 ML IVPB ONE (18:18)
[2018-05-16 19:24] VITALS: BP 130/82; PULSE 96; TEMP 98.1
[2018-05-16] MEDS ORDERED: CEPHALEXIN MONOHYDRATE 500 MG CAPSULE (UD) PO ONE (19:25)
[2018-05-16] MEDS ORDERED: CEPHALEXIN MONOHYDRATE 500 MG CAPSULE (UD) ONE (19:27)
== END 2018-05-16 19:41 | disposition home or self-care (01) ==
LOC: JER 15:18
PROC: 3E0337Z Introduction of Electrolytic and Water Balance Substance into Peripheral Vein, Percutaneous Approach (ICD-10-PCS; principal; 2018-05-16)
PROC: 3E033NZ Introduction of Analgesics, Hypnotics, Sedatives into Peripheral Vein, Percutaneous Approach (ICD-10-PCS; 2018-05-16)
DX: N39.0 Urinary tract infection, site not specified (principal); E11.65 Type 2 diabetes mellitus with hyperglycemia; Z79.4 Long term (current) use of insulin
CPT/HCPCS: 36415; 70450-TC; 70486-TC; 80053; 81003; 81015; 82009; 82803; 82962; 85025; 85651; 96361; 96374; 99284-25; J0131; J7030

== ENCOUNTER 2018-07-01 16:25 | Inpatient (IN) | payer OTHER ==
[2018-07-01] MEDS ORDERED: SODIUM CHLORIDE 1,000 ML IV STA ×2 (17:44→19:15)
[2018-07-01 18:04] LABS: BASO % 0.1 % (0-2.0); HEMATOCRIT 36.6 % (32.4-45.2); HEMOGLOBIN 12.1 GM/dL (10.7-15.3); LYMPH % 3.7 % (8-40); MCH 27.8 pg (25.7-33.7); MEAN CELL VOLUME 84.1 fl (80-96); MEAN PLT VOLUME 8.6 fl (7.5-11.1); MONO % 1.6 % (3.8-10.2); NEUT % 94.6 % (42.8-82.8); PLATELET COUNT 398 K/MM3 (134-434); RBC 4.35 M/mm3 (3.60-5.2); WHITE BLOOD COUNT 14.5 K/mm3 (4.0-10.0)
--- NOTE | 2018-07-01 18:12 | PDOC ---
History of Present Illness - General History Source: Patient Exam Limitations: Clinical Condition - History of Present Illness Initial Comments: 07/01/18 18:07 Patient with history of insulin-dependent diabetes brought in by son with complaint of five-day history of weakness which has been worsening since yesterday. Patient reported last taken her diabetes medication was yesterday. Patient on Humalog 25 mg at bedtime and metformin thousand milligrams twice a day for diabetes. Patient denies nausea, vomiting, abdominal pain, chest pain, shortness of breath, fever or chills. Son reported patient looked dehydrated. He should not has not been checking her glucose home. Denies any other symptoms Timing/Duration: other (5 days) <Norbert Lowe - Last Filed: 07/01/18 19:03> <Taylor Vera - Last Filed: 07/01/18 20:00> - General Chief Complaint: Weakness Stated Complaint: WEAKNESS Time Seen by Provider: 07/01/18 17:23 Past History - Past Medical History Cancer: No Cardiac Disorders: No CVA: No COPD: No Diabetes: Yes (iddm) HTN: No Lung CA: No - Immunization History Immunization Up to Date: Yes - Suicide/Smoking/Psychosocial Hx Smoking Status: No Smoking History: Never smoked Have you smoked in the past 12 months: No Number of Cigarettes Smoked Daily: 0 Information on smoking cessation initiated: No Hx Alcohol Use: No Drug/Substance Use Hx: No Substance Use Type: None <Norbert Lowe - Last Filed: 07/01/18 19:03> <Taylor Vera - Last Filed: 07/01/18 20:00> - Past Medical History Allergies/Adverse Reactions: Allergies Allergy/AdvReac Type Severity Reaction Status Date / Time aspirin Allergy Swelling Verified 07/01/18 17:40 Home Medications: Ambulatory Orders Insulin Glargine,Hum.rec.anlog [Fatou Main U-100] 25 unit SQ HS 05/16/18 Review of Systems - Review of Systems Able to Perform ROS?: Yes Is the patient limited Guamanian proficient: No Constitutional: Yes: Weakness, Unintentional Wgt. Loss. No: Chills, Fever HEENTM: No: Symptoms Reported, See HPI, Eye Pain, Blurred Vision, Tearing, Recent change in vision, Double Vision, Cataracts, Ear Pain, Ocular Prothesis, Ear Discharge, Nose Pain, Nose Congestion, Tinnitus, Nose Bleeding, Hearing Loss , Throat Pain, Throat Swelling, Mouth Pain, Dental Problems, Difficulty Swallowing, Mouth Swelling, Other Respiratory: No: Symptoms reported, See HPI, Cough, Orthopnea, Shortness of Breath, SOB with Exertion, SOB at Rest, Stridor, Wheezing, Productive cough, Hemoptysis, Other Cardiac (ROS): No: Symptoms Reported, See HPI, Chest Pain, Edema, Irregular Heart Rate, Lightheadedness, Palpitations, Syncope, Chest Tightness, Other ABD/GI: Yes: Poor Appetite. No: Constipated, Diarrhea, Nausea, Poor Fluid Intake, Vomiting, Abdominal cramping : No: Burning, Dysuria, Discharge, Frequency, Urgency Musculoskeletal: Yes: See HPI, Muscle Weakness Neurological: Yes: Weakness. No: Headache, Numbness, Paresthesia, Unsteady Gait , Ataxia, Dizziness All Other Systems: Reviewed and Negative <Norbert Lowe Carlton - Last Filed: 07/01/18 19:03> *Physical Exam - Vital Signs Last Vital Signs Temp Pulse Resp BP Pulse Ox 98.7 F 106 H 16 117/72 97 07/01/18 16:43 07/01/18 16:43 07/01/18 16:43 07/01/18 16:43 07/01/18 16:43 - Physical Exam Comments: 07/01/18 18:09 GENERAL: Well developed, well nourished. Awake and alert. No acute distress. HEENT: Normocephalic, atraumatic. PERRLA, EOMI. No conjunctival pallor. Sclera are non-icteric. Moist mucous membranes. Oropharynx is clear. NECK: Supple. Full ROM. CARDIOVASCULAR: Regular rate and rhythm. No murmurs, rubs, or gallops. Distal pulses are 2+ and symmetric. PULMONARY: No evidence of respiratory distress. Lungs clear to auscultation bilaterally. No wheezing, rales or rhonchi. ABDOMINAL: Soft. Non-tender. Non-distended. No rebound or guarding. No organomegaly. Normoactive bowel sounds. MUSCULOSKELETAL Normal range of motion at all joints. EXTREMITIES: No cyanosis. No clubbing. No edema. No calf tenderness. SKIN: Warm and dry. Normal capillary refill. dry skin turgor. No jaundice. NEUROLOGICAL: Alert, awake, appropriate. Gait is normal without ataxia. PSYCHIATRIC: Cooperative. Good eye contact. Appropriate mood General Appearance: Yes: Nourished, Appropriately Dressed. No: Apparent Distress <Norbert Lowe - Last Filed: 07/01/18 19:03> - Vital Signs Last Vital Signs Temp Pulse Resp BP Pulse Ox 98.7 F 106 H 16 117/72 97 07/01/18 16:43 07/01/18 16:43 07/01/18 16:43 07/01/18 16:43 07/01/18 16:43 <Taylor Vera - Last Filed: 07/01/18 20:00> ED Treatment Course - LABORATORY CBC & Chemistry Diagram: 07/01/18 17:52 07/01/18 17:52 - ADDITIONAL ORDERS Additional order review: Laboratory Results 07/01/18 17:54 POC Glucometer 583 07/01/18 07/01/18 17:54 17:52 RBC 4.35 MCV 84.1 MCHC 33.0 RDW 14.0 MPV 8.6 Neutrophils % 94.6 H D Lymphocytes % 3.7 L D Monocytes % 1.6 L Eosinophils % 0.0 D Basophils % 0.1 POC Glucometer 583 - RADIOLOGY Radiology Studies Ordered: Category Date Time Status CHEST PA & LAT [RAD] Stat Radiology 07/01/18 17:46 Ordered <Norbert Lowe - Last Filed: 07/01/18 19:03> - LABORATORY CBC & Chemistry Diagram: 07/01/18 17:52 07/01/18 17:52 - ADDITIONAL ORDERS Additional order review: Laboratory Results 07/01/18 07/01/18 17:54 17:52 Sodium 136 Potassium 5.3 H Chloride 101 Carbon Dioxide 24 Anion Gap 12 BUN 30 H Creatinine 1.3 Creat Clearance w eGFR 41.92 POC Glucometer 583 Random Glucose 590 H* Calcium 10.3 H Total Bilirubin 0.5 AST 11 L ALT 18 Alkaline Phosphatase 82 Creatine Kinase 80 Troponin I < 0.02 Total Protein 7.8 Albumin 3.8 07/01/18 07/01/18 17:54 17:52 RBC 4.35 MCV 84.1 MCHC 33.0 RDW 14.0 MPV 8.6 Neutrophils % 94.6 H D Lymphocytes % 3.7 L D Monocytes % 1.6 L Eosinophils % 0.0 D Basophils % 0.1 POC Glucometer 583 - Medications Given in the ED: ED Medications Discontinued Medications Generic Name Dose Route Start Last Admin Trade Name Saadia PRN Reason Stop Dose Admin Sodium Chloride 1,000 mls @ 1,000 mls/hr 07/01/18 17:44 07/01/18 17:58 Normal Saline - IV 07/01/18 18:43 1,000 mls/hr ASDIR STA Administration Insulin Human Regular 10 units 07/01/18 19:14 07/01/18 19:39 Novolin R Vial *For Ivpush Or Iv Drip Only* SQ 07/01/18 19:15 10 units ONCE ONE Administration <Taylor Vera - Last Filed: 07/01/18 20:00> Medical Decision Making - Medical Decision Making 07/01/18 18:10 Clinical exam significant for dry skin turgor otherwise normal exam. Symptoms likely dehydration versus hypoglycemia versus hyperglycemia. Normal vital signs except mildly tachycardic. CBC, CMP, UA and urine culture labs ordered. Blood glucose check is 585 nonfasting. Checks x-ray ordered to rule out acute chest pathology. Normal saline 1 L IV for ordered for hydration. Treat based on lab results. 07/01/18 19:03 CBC shows elevated WBCs of 14.8. chemistry labs with no acute abnormality. pt still hasn't given urine. CXR pending. EKG ordered. Patient will be signed out of night team for follow-up care <Norbert Lowe - Last Filed: 07/01/18 19:03> *DC/Admit/Observation/Transfer <Norbert Lowe - Last Filed: 07/01/18 19:03> <Taylor Vera - Last Filed: 07/01/18 20:00> Diagnosis at time of Disposition: Weakness - Discharge Dispostion Condition at time of disposition: Stable - Referrals Referrals: Fernie Kerns MD [Primary Care Provider] -
[2018-07-01 18:40] LABS: ALBUMIN 3.8 g/dl (3.4-5.0); ALK PHOS 82 U/L (45-117); ANION GAP 12 MMOL/L (8-16); BILIRUBIN,TOTAL 0.5 mg/dL (0.2-1); BLOOD UREA NITROGEN 30 mg/dL (7-18); CALCIUM 10.3 mg/dL (8.5-10.1); CHLORIDE 101 mmol/L (98-107); CO2 24 mmol/L (21-32); CREATININE 1.3 mg/dL (0.55-1.3); POTASSIUM 5.3 mmol/L (3.5-5.1); SGOT/AST 11 U/L (15-37); SGPT/ALT 18 U/L (13-61); SODIUM 136 mmol/L (136-145); TOT PROT 7.8 g/dl (6.4-8.2)
[2018-07-01 18:49] LABS: GLUCOSE,RANDOM 590 mg/dL (74-106)
[2018-07-01] MEDS ORDERED: INSULIN REGULAR HUMAN 100 UNITS/ML *VIAL SQ ONE (19:14)
[2018-07-01] MEDS ORDERED: INSULIN REGULAR HUMAN 100 UNITS/ML *VIAL ONE (19:31)
--- NOTE | 2018-07-01 19:39 | PDOC ---
*Physical Exam - Vital Signs Last Vital Signs Temp Pulse Resp BP Pulse Ox 98.7 F 106 H 16 117/72 97 07/01/18 16:43 07/01/18 16:43 07/01/18 16:43 07/01/18 16:43 07/01/18 16:43 - Physical Exam General Appearance: Yes: Appropriately Dressed. No: Apparent Distress Respiratory/Chest: positive: Lungs Clear, Normal Breath Sounds. negative: Respiratory Distress, Accessory Muscle Use Cardiovascular: positive: Regular Rate, Tachycardia Neurologic: negative: Motor Strength 5/5 (4/5 in LLE. 5/5 in BUE and RLE) ED Treatment Course - LABORATORY CBC & Chemistry Diagram: 07/03/18 05:30 07/03/18 17:34 - ADDITIONAL ORDERS Additional order review: Laboratory Results 07/01/18 07/01/18 17:54 17:52 Sodium 136 Potassium 5.3 H Chloride 101 Carbon Dioxide 24 Anion Gap 12 BUN 30 H Creatinine 1.3 Creat Clearance w eGFR 41.92 POC Glucometer 583 Random Glucose 590 H* Calcium 10.3 H Total Bilirubin 0.5 AST 11 L ALT 18 Alkaline Phosphatase 82 Creatine Kinase 80 Troponin I < 0.02 Total Protein 7.8 Albumin 3.8 07/01/18 07/01/18 17:54 17:52 RBC 4.35 MCV 84.1 MCHC 33.0 RDW 14.0 MPV 8.6 Neutrophils % 94.6 H D Lymphocytes % 3.7 L D Monocytes % 1.6 L Eosinophils % 0.0 D Basophils % 0.1 POC Glucometer 583 - Medications Given in the ED: ED Medications Discontinued Medications Generic Name Dose Route Start Last Admin Trade Name Freq PRN Reason Stop Dose Admin Sodium Chloride 1,000 mls @ 1,000 mls/hr 07/01/18 17:44 07/01/18 17:58 Normal Saline - IV 07/01/18 18:43 1,000 mls/hr ASDIR STA Administration Progress Note - Progress Note Progress Note: Received sign out from KATHY Lowe. Briefly this a 57-year-old insulin-dependent diabetic presents emergency Department with generalized weakness. Laboratory testing remarkable for WBC-14.5 , neutrophils at 94.6%, glucose of 590, creatinine- 1.3, BUN-30. Patient's initial troponin is less than 0.02. Patient's chest x-ray shows no acute chest pathology read by Dr. Timmons. Patient received 1 L of normal saline and is scheduled to receive another liter of normal saline and 10 units of regular insulin subcutaneous. Patient is pending urine sample and will be admitted for hyperglycemia. Medical Decision Making - Medical Decision Making 07/01/18 22:10 CT of the head as read by Dr. Galloway: No CT evidence of acute intracranial pathology. There is been no definite interval change in comparison to a prior CT exam of 05/16/2018. A mucous retention cyst/polyp is again seen within the alveolar reassess in the left maxillary sinus. Urinalysis is positive for 3+ glucose, 1+ ketones and 1+ protein 07/02/18 00:03 VBG pH-7.36. Acetone 2+ no blood. I will admit patient to hospitalist service for treatment of hyperglycemia. 07/02/18 00:[address] Morales of the hospitalist department. Patient to be admitted under Dr. Nuñez to [facility] *DC/Admit/Observation/Transfer Diagnosis at time of Disposition: Weakness, Hyperglycemia, Leukocytosis - Discharge Dispostion Condition at time of disposition: Fair Decision to Admit order: Yes - Referrals - Patient Instructions - Post Discharge Activity
[2018-07-01 19:49] LABS: ANISOCYTOSIS 1+; MACROCYTOSIS 1+; OVALOCYTE 1+
[2018-07-01 19:50] LABS: PLATELET ESTIMATE ADEQUATE
--- NOTE | 2018-07-01 20:04 | PDOC ---
*Physical Exam - Vital Signs Last Vital Signs Temp Pulse Resp BP Pulse Ox 98.7 F 106 H 16 117/72 97 07/01/18 16:43 07/01/18 16:43 07/01/18 16:43 07/01/18 16:43 07/01/18 16:43 - Physical Exam General Appearance: Yes: Nourished HEENT: positive: Normal ENT Inspection Neck: positive: Trachea midline Respiratory/Chest: positive: Lungs Clear, Normal Breath Sounds Cardiovascular: positive: Regular Rhythm, S1, S2, Other (regular tachycardia. ) Gastrointestinal/Abdominal: positive: Normal Bowel Sounds, Flat, Soft. negative : Tender Musculoskeletal: positive: Normal Inspection. negative: CVA Tenderness Extremity: positive: Normal Capillary Refill. negative: Swelling, Calf Tenderness Integumentary: positive: Normal Color, Warm Neurologic: positive: mastercam programmer II-XII NML intact, Fully Oriented, Alert, Normal Mood/ Affect, Other (5/5 right upper and lower, left upper 5/5. left lower 4+ / 5. ) ED Treatment Course - LABORATORY CBC & Chemistry Diagram: 07/01/18 17:52 07/01/18 17:52 - ADDITIONAL ORDERS Additional order review: Laboratory Results 07/01/18 07/01/18 17:54 17:52 Sodium 136 Potassium 5.3 H Chloride 101 Carbon Dioxide 24 Anion Gap 12 BUN 30 H Creatinine 1.3 Creat Clearance w eGFR 41.92 POC Glucometer 583 Random Glucose 590 H* Calcium 10.3 H Total Bilirubin 0.5 AST 11 L ALT 18 Alkaline Phosphatase 82 Creatine Kinase 80 Troponin I < 0.02 Total Protein 7.8 Albumin 3.8 07/01/18 07/01/18 17:54 17:52 RBC 4.35 MCV 84.1 MCHC 33.0 RDW 14.0 MPV 8.6 Neutrophils % 94.6 H D Lymphocytes % 3.7 L D Monocytes % 1.6 L Eosinophils % 0.0 D Basophils % 0.1 POC Glucometer 583 - Medications Given in the ED: ED Medications Discontinued Medications Generic Name Dose Route Start Last Admin Trade Name Freq PRN Reason Stop Dose Admin Sodium Chloride 1,000 mls @ 1,000 mls/hr 07/01/18 17:44 07/01/18 17:58 Normal Saline - IV 07/01/18 18:43 1,000 mls/hr ASDIR STA Administration Insulin Human Regular 10 units 07/01/18 19:14 07/01/18 19:39 Novolin R Vial *For Ivpush Or Iv Drip Only* SQ 07/01/18 19:15 10 units ONCE ONE Administration Medical Decision Making - Medical Decision Making 07/01/18 20:01 57 yo F h/o DM , here with c/o weakness. states she had subjective fever and chills one week ago, today was feeling generalied weakness. also c/o intermittent chest pain an dysuria, polyruia. did not take her insulin yesterday ro today because she was having a headache. states she had recent dental surgery one month ago, and has been having headaches since. pt is poor historian and additional history provided by her son at bedside. on exam pt awake alert speech, clear although diffiuclty answering some questions. lungs and heart normal except tachycardia. ext wwp. nuero exam facies symmetric, speech clear dry mucous membranes. left upper 5/5 bilat, left lower 4/5. right lower 4/5. differential hyperglycemia,dka infeciton such as pna or uti, acs, cva. plan ct head. labs ekg cxr. sugar noted to be 500+. given 10 untis insulin, [address] head pending. cxr pending. ua pending. signed out to oncoming attending. pt seen and examined in conjunction with KATHY vital agree with plan. *DC/Admit/Observation/Transfer Diagnosis at time of Disposition: Weakness - Discharge Dispostion Condition at time of disposition: Stable - Referrals Referrals: Fernie Kerns MD [Primary Care Provider] - - Patient Instructions - Post Discharge Activity
[2018-07-01 21:24] LABS: EPI CELLS 0.3 /HPF (0-5/HPF); URINE APPEARANCE CLEAR; URINE BACTERIA 2.4 /hpf (NEGATIVE); URINE BILIRUBIN NEGATIVE (NEGATIVE); URINE CASTS 0 /lpf (0-8); URINE COLOR YELLOW; URINE GLUCOSE (UA) 3+ (NEGATIVE); URINE KETONE 1+ (NEGATIVE); URINE LEUK ESTERASE NEGATIVE (NEGATIVE); URINE NITRITE NEGATIVE (NEGATIVE); URINE PROTEIN 1+ (NEGATIVE); URINE RBC 0 /hpf (0-4); URINE UROBILINOGEN 0.2 mg/dL (0.2-1.0); URINE WBC 0 /hpf (0-5)
[2018-07-01 23:31] LABS: VENOUS PC02 43.9 mmHg (41-51); VENOUS PH 7.36 (7.31-7.41)
[2018-07-01 23:33] LABS: VENOUS PO2 23.3 mmHg (30-40)
--- NOTE | 2018-07-02 01:25 | HP ---
CHIEF COMPLAINT: Generalized Weakness PCP: Dr Thornton HISTORY OF PRESENT ILLNESS: Pt is a 57 y/o lady with a significant past medical history of IDDM who presented to [facility] [place] due to a 5 day history of generalized weakness and altered mental status. Per son via phone, pt has not been herself for the past 5 days. Son denies any recent infections or changes in lifestyle in pt. Endorses pt is compliant with her DM medications. Only significant event son states is that pt had her molar teeth removed 2 weeks ago. Furthermore, son denies any recent infections or lifestyle changes. Endorses that pt was treated at our hospital approximately 1 year ago for the same symptoms which were attributed to her Diabetes. Son decided to bring pt in to hospital as pt's symptoms progressively got worse. Pt upon my interview appeared very confused and was unable to answer questions when prompted. ER course was notable for: (1) Glucose 590 without anion gap (2) WBC 14.5 (3) Head CT Negative PAST MEDICAL HISTORY: Unable to obtain due to AMS PAST SURGICAL HISTORY: Unable to obtain due to AMS. Please Obtain in day time. Social History: Unable to obtain due to AMS Family History: Unable to obtain due to AMS Allergies aspirin Allergy (Verified 07/01/18 17:40) Swelling HOME MEDICATIONS: Home Medications Medication Instructions Recorded Insulin Glargine,Hum.rec.anlog 25 unit SQ HS 05/16/18 [Fatou Main U-100] REVIEW OF SYSTEMS Unable to obtain PHYSICAL EXAMINATION Vital Signs - 24 hr 07/01/18 16:43 Temperature 98.7 F Pulse Rate 106 H Respiratory 16 Rate Blood Pressure 117/72 O2 Sat by Pulse 97 Oximetry (%) GENERAL: AAOx1 HEAD: Atraumatic/Normocephalic EYES: EOMI Sclera Clear EARS, NOSE, THROAT:MMM NECK: Supple No JVD appreciated LUNGS: CTAB HEART: RRR Nl S1S2 ABDOMEN: Soft NDNT LOWER EXTREMITIES: No Onychomycosis No pitting edema NEUROLOGICAL: Cranial nerves II-XII intact. Slurred speech not appreciated during my exam SKIN: No rashes or lesions appreciated Laboratory Results - last 24 hr 07/01/18 07/01/18 07/01/18 00:05 17:52 17:52 WBC 14.5 H RBC 4.35 Hgb 12.1 Hct 36.6 MCV 84.1 MCH 27.8 MCHC 33.0 RDW 14.0 Plt Count 398 D MPV 8.6 Absolute Neuts (auto) 13.8 H Neutrophils % 94.6 H D Neutrophils % (Manual) 92.0 H Band Neutrophils % 3.0 Lymphocytes % 3.7 L D Lymphocytes % (Manual) 3.0 L Monocytes % 1.6 L Monocytes % (Manual) 2 L Eosinophils % 0.0 D Basophils % 0.1 Nucleated RBC % 0 Hypochromia 1+ Platelet Estimate Adequate Platelet Comment No clumping noted Anisocytosis 1+ Macrocytosis 1+ Ovalocytes 1+ VBG pH POC VBG pCO2 POC VBG pO2 VBG HCO3 VBG O2 Sat ([place]) VBG Base Excess Sodium 136 Potassium 5.3 H Chloride 101 Carbon Dioxide 24 Anion Gap 12 BUN 30 H Creatinine 1.3 Creat Clearance w eGFR 41.92 POC Glucometer Random Glucose 590 H* Lactic Acid 1.5 Calcium 10.3 H Total Bilirubin 0.5 AST 11 L ALT 18 Alkaline Phosphatase 82 Creatine Kinase 80 Troponin I < 0.02 Total Protein 7.8 Albumin 3.8 Urine Color Urine Appearance Urine pH Ur Specific [place] Urine Protein Urine Glucose (UA) Urine Ketones Urine Blood Urine Nitrite Urine Bilirubin Urine Urobilinogen Ur Leukocyte Esterase Urine WBC (Auto) Urine RBC (Auto) Urine Casts (Auto) U Epithel Cells (Auto) Urine Bacteria (Auto) Acetone, Qual 07/01/18 07/01/18 07/01/18 17:54 19:54 23:10 WBC RBC Hgb Hct MCV MCH MCHC RDW Plt Count MPV Absolute Neuts (auto) Neutrophils % Neutrophils % (Manual) Band Neutrophils % Lymphocytes % Lymphocytes % (Manual) Monocytes % Monocytes % (Manual) Eosinophils % Basophils % Nucleated RBC % Hypochromia Platelet Estimate Platelet Comment Anisocytosis Macrocytosis Ovalocytes VBG pH 7.36 POC VBG pCO2 43.9 POC VBG pO2 23.3 L VBG HCO3 23.9 VBG O2 Sat ([place]) 39.5 L VBG Base Excess -1.1 Sodium Potassium Chloride Carbon Dioxide Anion Gap BUN Creatinine Creat Clearance w eGFR POC Glucometer 583 Random Glucose Lactic Acid Calcium Total Bilirubin AST ALT Alkaline Phosphatase Creatine Kinase Troponin I Total Protein Albumin Urine Color Yellow Urine Appearance Clear Urine pH 5.0 Ur Specific [place] 1.024 Urine Protein 1+ H Urine Glucose (UA) 3+ H Urine Ketones 1+ H Urine Blood Trace Urine Nitrite Negative Urine Bilirubin Negative Urine Urobilinogen 0.2 Ur Leukocyte Esterase Negative Urine WBC (Auto) 0 Urine RBC (Auto) 0 Urine Casts (Auto) 0 U Epithel Cells (Auto) 0.3 Urine Bacteria (Auto) 2.4 Acetone, Qual 07/01/18 23:10 WBC RBC Hgb Hct MCV MCH MCHC RDW Plt Count MPV Absolute Neuts (auto) Neutrophils % Neutrophils % (Manual) Band Neutrophils % Lymphocytes % Lymphocytes % (Manual) Monocytes % Monocytes % (Manual) Eosinophils % Basophils % Nucleated RBC % Hypochromia Platelet Estimate Platelet Comment Anisocytosis Macrocytosis Ovalocytes VBG pH POC VBG pCO2 POC VBG pO2 VBG HCO3 VBG O2 Sat ([place]) VBG Base Excess Sodium Potassium Chloride Carbon Dioxide Anion Gap BUN Creatinine Creat Clearance w eGFR POC Glucometer Random Glucose Lactic Acid Calcium Total Bilirubin AST ALT Alkaline Phosphatase Creatine Kinase Troponin I Total Protein Albumin Urine Color Urine Appearance Urine pH Ur Specific [place] Urine Protein Urine Glucose (UA) Urine Ketones Urine Blood Urine Nitrite Urine Bilirubin Urine Urobilinogen Ur Leukocyte Esterase Urine WBC (Auto) Urine RBC (Auto) Urine Casts (Auto) U Epithel Cells (Auto) Urine Bacteria (Auto) Acetone, Qual Positive moderate 2+ H ASSESSMENT/PLAN: Pt is a 57 y/o lady with a significant past medical history of IDDM who presented to [facility] [place] 2] due to a 5 day history of generalized weakness and altered mental status #AMS MRI r/o any stroke considering history of slurred speech. Will also order Echocardiogram and carotid dopplers in light of this history though doubt likelihood of CVA. Consider Neurology consult Will order RPR, TSH, HIV, B12, B6, HIV, ESR, CRP, HCV Ab to ascertain other possible etiologies of AMS. Will admit to Tele. will also place on seizure precautions and neuro checks. #Uncontrolled DM w/ Hyperglycemia and +Acetone Withhold oral hypoglycemics Place on ISS Continue Levemir 25 U for AM. -Check A1C #Hypercalcemia Will check PTH Will repeat in am #FEN NS@100cc/hr Monitor Electrolytes Diabetic Diet DVT ppx HEPSQTID Dispo: Tele Visit type - Emergency Visit Emergency Visit: Yes ED Registration Date: 07/02/18 Care time: The patient presented to the Emergency Department on the above date and was hospitalized for further evaluation of their emergent condition. - New Patient This patient is new to me today: Yes Date on this admission: 07/02/18 - Critical Care Critical Care patient: No
--- NOTE | 2018-07-02 01:55 | PN ---
Teaching Attending Note Name of Resident: Esteban Morales ATTENDING PHYSICIAN STATEMENT I saw and evaluated the patient. I reviewed the resident's note and discussed the case with the resident. I agree with the resident's findings and plan as documented. SUBJECTIVE: Seen and examined; please refer to resident note for further historical documentation. Briefly, this is a 57 y/o presenting to the ER with hyperglycemia and intermittent AMS. She has had these sx before 1 yr ago and per her son tells us that it was due to her DM. History difficult to obtain from patient due to her confusion, but she does endorse confusion. Son states that for the past 5 days she has not been herself with waxing and waning confusion, slurred speech (not noted by us in the ER). The symptoms have been more severe and more frequent so he brought her to the ER. 2 weeks ago she had molars taken out. Couldn't reliably complete 10 sys ROS PMH, PSH, FH, SH reviewed Home Medications Medication Instructions Recorded Insulin Glargine,Hum.rec.anlog 25 unit SQ HS 05/16/18 [[place] Main U-100] OBJECTIVE: VS, labs, imaging reviewed NAD, AAOx1-2 resting in bed Speech is normal and not slurred; she is hesitant to respond and sometimes speaks nonsensically and admits confusion. Appropriate behavior CN2-12 wnl, no meningeal signs, moves all 4 extremities with 5/5 strength and normal sensorium. NT ND +BS RRR s1/2 no mgr Skin normal with no rashes or breakdown ASSESSMENT AND PLAN: Patient is a 57 y/o female presenting to the ER with AMS for 5 days found to be hyperglycemic to the 500s. She has leukocytosis and slight hypercalcemia 1) AMS -Ddx is broad; has happened before and she was told was 2/2 DM. Consider hyperglycemia-related causes and treating aggressively. Placing on neuro checks and seizure precautions. CT head negative. COnsider MRI w/ and w/o -Son informed us that he was concerned for slurred speech at home; she has normal speech quality here with no slurring noted and NIHSS zero. Still, will check MRI and carotid doppler and echo for completeness though this is less likely CVA based on history alone. Can monitor tele x24 hours. -Check B12, ESR, CRP, TSH, HIV, HCV Ab -Check PTH given mild hypercalcemia 2) Uncontrolled DM2 with hyperglycemia and +acetone -Continue lantus (move to [facility] for now) and place on SSI; titrate basal based on her PRN requirements. Check A1c. Hold PO antihyperglycemics. Followup with PCP. 3) Dehydration -Given 2L NS in the ER; poor PO intake. Placing on NS for maintenance overnight 4) Hypercalcemia -Trend, check PTH. Mild. 5) Leukocytosis -Checking flu; no obvious source of infection. 6) L-Maxillary sinus polyp vs. retention cyst -Outpatient referral to ENT; seen incidentally on CT
[2018-07-02] MEDS: SODIUM CHLORIDE 1,000 ML IV SCH (03:01)
[2018-07-02] MEDS ORDERED: levETIRAcetam 500 MG/5 ML INJECTION VIAL IVPB ONE (06:07)
[2018-07-02] MEDS: INSULIN SLIDING SCALE (NOVOLOG) 1 VIAL SQ SCH ×3 (06:40→21:41)
[2018-07-02] MEDS: HEPARIN NA (PORCINE) 5,000 UNITS/ML 1ML VIAL SQ SCH ×3 (06:41→21:46)
[2018-07-02] MEDS ORDERED: levETIRAcetam 500 MG/5 ML INJECTION VIAL IVPB SCH ×2 (06:45→10:00)
[2018-07-02] MEDS ORDERED: LORazepam 2 MG/ML SDV VIAL IVPUSH PRN (06:46)
[2018-07-02] MEDS ORDERED: INSULIN SLIDING SCALE (NOVOLOG) 1 VIAL SQ SCH (07:00)
[2018-07-02 08:26] LABS: INR 1.02 (0.83-1.09)
[2018-07-02 08:28] LABS: BASO % 0.8 % (0-2.0); EOS % 0.1 % (0-4.5); HEMATOCRIT 33.7 % (32.4-45.2); HEMOGLOBIN 11.2 GM/dL (10.7-15.3); LYMPH % 18.4 % (8-40); MCH 27.7 pg (25.7-33.7); MCHC 33.2 g/dl (32.0-36.0); MEAN CELL VOLUME 83.6 fl (80-96); MEAN PLT VOLUME 8.7 fl (7.5-11.1); MONO % 6.7 % (3.8-10.2); PLATELET COUNT 391 K/MM3 (134-434); RBC 4.03 M/mm3 (3.60-5.2); RDW 14.1 % (11.6-15.6); WHITE BLOOD COUNT 13.6 K/mm3 (4.0-10.0)
[2018-07-02 08:29] LABS: ACTIVATED PTT 27.3 SECONDS (25.2-36.5)
--- NOTE | 2018-07-02 09:18 | CONSULT ---
Consult - text type - Consultation Consultation Note: Neurology CHIEF COMPLAINT: Generalized Weakness PCP: Dr Thornton HISTORY OF PRESENT ILLNESS: 57 y/o lady with a significant past medical history of IDDM who presented to [facility] due to a 5 day history of generalized weakness and altered mental status. Per son via phone, pt has not been herself for the past 5 days. Son denied any recent infections or changes in lifestyle in pt. Endorsed pt is compliant with her DM medications but glucose on presentation was 590, noted to be without anion gap. Only significant event son states is that pt had her molar teeth removed 2 weeks ago. Furthermore, son denied any recent infections or lifestyle changes. Endorsed that pt was treated at our hospital approximately 1 year ago for the same symptoms which were attributed to her Diabetes. Of note, elevated WBC to 14.5. CT head completed and without acute changes. Patient is awake, alert, not minimally communicative. Seen at bedside with nurse, last BGM in 300's. Concern for patient's recurrent seizures, reportedly 3 events since presentation to ER. Discussed with resident early this AM and during rounds today. She was put on Keppra 500mg twice daily, advised increased to 750mg twice daily. Most importantly, need tighter glycemic control as metabolic disturbance likely precipitating seizure events. PAST MEDICAL HISTORY: Unable to obtain due to AMS PAST SURGICAL HISTORY: Unable to obtain due to AMS. Social History: Unable to obtain due to AMS Family History: Unable to obtain due to AMS Allergies aspirin Allergy (Verified 07/01/18 17:40) Swelling HOME MEDICATIONS: Home Medications Medication Instructions Recorded Insulin Glargine,Hum.rec.anlog 25 unit SQ HS 05/16/18 [Fatou Main U-100] REVIEW OF SYSTEMS Unable to obtain due to AMS PHYSICAL EXAMINATION Vital Signs Period Temp Pulse Resp BP Sys/Baxter Pulse Ox Last 24 Hr 98.7 F-100.1 F 90-108 16-20 117-156/70-84 97-98 GENERAL: AAOx1 HEAD: Atraumatic/Normocephalic EYES: EOMI Sclera Clear EARS, NOSE, THROAT:MMM NECK: Supple No JVD appreciated LUNGS: CTAB HEART: RRR Nl S1S2 ABDOMEN: Soft NDNT LOWER EXTREMITIES: No Onychomycosis No pitting edema NEUROLOGICAL: Cranial nerves II-XII intact. Arousable but not communicative, moves extremities grossly, sensory intact SKIN: No rashes or lesions appreciated Laboratory Results - last 24 hr 07/01/18 07/01/18 07/01/18 00:05 17:52 17:52 WBC 14.5 H RBC 4.35 Hgb 12.1 Hct 36.6 MCV 84.1 MCH 27.8 MCHC 33.0 RDW 14.0 Plt Count 398 D MPV 8.6 Absolute Neuts (auto) 13.8 H Neutrophils % 94.6 H D Neutrophils % (Manual) 92.0 H Band Neutrophils % 3.0 Lymphocytes % 3.7 L D Lymphocytes % (Manual) 3.0 L Monocytes % 1.6 L Monocytes % (Manual) 2 L Eosinophils % 0.0 D Basophils % 0.1 Nucleated RBC % 0 Hypochromia 1+ Platelet Estimate Adequate Platelet Comment No clumping noted Anisocytosis 1+ Macrocytosis 1+ Ovalocytes 1+ VBG pH POC VBG pCO2 POC VBG pO2 VBG HCO3 VBG O2 Sat ([place]) VBG Base Excess Sodium 136 Potassium 5.3 H Chloride 101 Carbon Dioxide 24 Anion Gap 12 BUN 30 H Creatinine 1.3 Creat Clearance w eGFR 41.92 POC Glucometer Random Glucose 590 H* Lactic Acid 1.5 Calcium 10.3 H Total Bilirubin 0.5 AST 11 L ALT 18 Alkaline Phosphatase 82 Creatine Kinase 80 Troponin I < 0.02 Total Protein 7.8 Albumin 3.8 Urine Color Urine Appearance Urine pH Ur Specific [place] Urine Protein Urine Glucose (UA) Urine Ketones Urine Blood Urine Nitrite Urine Bilirubin Urine Urobilinogen Ur Leukocyte Esterase Urine WBC (Auto) Urine RBC (Auto) Urine Casts (Auto) U Epithel Cells (Auto) Urine Bacteria (Auto) Acetone, Qual 07/01/18 07/01/18 07/01/18 17:54 19:54 23:10 WBC RBC Hgb Hct MCV MCH MCHC RDW Plt Count MPV Absolute Neuts (auto) Neutrophils % Neutrophils % (Manual) Band Neutrophils % Lymphocytes % Lymphocytes % (Manual) Monocytes % Monocytes % (Manual) Eosinophils % Basophils % Nucleated RBC % Hypochromia Platelet Estimate Platelet Comment Anisocytosis Macrocytosis Ovalocytes VBG pH 7.36 POC VBG pCO2 43.9 POC VBG pO2 23.3 L VBG HCO3 23.9 VBG O2 Sat ([place]) 39.5 L VBG Base Excess -1.1 Sodium Potassium Chloride Carbon Dioxide Anion Gap BUN Creatinine Creat Clearance w eGFR POC Glucometer 583 Random Glucose Lactic Acid Calcium Total Bilirubin AST ALT Alkaline Phosphatase Creatine Kinase Troponin I Total Protein Albumin Urine Color Yellow Urine Appearance Clear Urine pH 5.0 Ur Specific [place] 1.024 Urine Protein 1+ H Urine Glucose (UA) 3+ H Urine Ketones 1+ H Urine Blood Trace Urine Nitrite Negative Urine Bilirubin Negative Urine Urobilinogen 0.2 Ur Leukocyte Esterase Negative Urine WBC (Auto) 0 Urine RBC (Auto) 0 Urine Casts (Auto) 0 U Epithel Cells (Auto) 0.3 Urine Bacteria (Auto) 2.4 Acetone, Qual ASSESSMENT/PLAN: 57 y/o lady with a significant past medical history of IDDM who presented to [facility] due to a 5 day history of generalized weakness and altered mental status. Per son via phone, pt has not been herself for the past 5 days. Son denied any recent infections or changes in lifestyle in pt. Endorsed pt is compliant with her DM medications but glucose on presentation was 590, noted to be without anion gap. Only significant event son states is that pt had her molar teeth removed 2 weeks ago. Furthermore, son denied any recent infections or lifestyle changes. Endorsed that pt was treated at our hospital approximately 1 year ago for the same symptoms which were attributed to her Diabetes. Of note, elevated WBC to 14.5. CT head completed and without acute changes. Patient is awake, alert, not minimally communicative. Seen at bedside with nurse, last BGM in 300's. Concern for patient's recurrent seizures, reportedly 3 events since presentation to ER. Discussed with resident early this AM and during rounds today. She was put on Keppra 500mg twice daily, advised increased to 750mg twice daily. Most importantly, need tighter glycemic control as metabolic disturbance likely precipitating seizure events. Will order EEG. Can give Ativan PRN for seizure events, no more than 8mg in 24hrs. Continue monitoring for seizures. If subsequent events, can further increase to 1000mg twice daily. Insulin sliding scale, adequate hydration. DVT ppx.
[2018-07-02 09:36] LABS: ALBUMIN 3.4 g/dl (3.4-5.0); ALK PHOS 68 U/L (45-117); ANION GAP 11 MMOL/L (8-16); BILIRUBIN,TOTAL 0.4 mg/dL (0.2-1); BLOOD UREA NITROGEN 26 mg/dL (7-18); CALCIUM 9.6 mg/dL (8.5-10.1); CHLORIDE 114 mmol/L (98-107); CO2 21 mmol/L (21-32); CREATININE 1.3 mg/dL (0.55-1.3); MAGNESIUM 2.3 mg/dL (1.8-2.4); PHOSPHOROUS 3.2 mg/dL (2.5-4.9); POTASSIUM 4.5 mmol/L (3.5-5.1); SGOT/AST 7 U/L (15-37); SGPT/ALT 16 U/L (13-61); SODIUM 146 mmol/L (136-145); TOT PROT 6.8 g/dl (6.4-8.2)
[2018-07-02 09:50] LABS: GLUCOSE,RANDOM 357 mg/dL (74-106)
--- NOTE | 2018-07-02 10:40 | EKG ---
Test Reason : Blood Pressure : / mmHG Vent. Rate : 123 BPM Atrial Rate : 123 BPM P-R Int : 118 ms QRS Dur : 072 ms QT Int : 304 ms P-R-T Axes : 070 073 045 degrees QTc Int : 435 ms SINUS TACHYCARDIA NONSPECIFIC ST ABNORMALITY ABNORMAL ECG WHEN COMPARED WITH ECG OF 17-OCT-2016 19:57, NO SIGNIFICANT CHANGE WAS FOUND Confirmed by JARAD RODRIGUEZ MD ([id number]) on 07/02/2018 10:39:59 AM Referred By: Confirmed By:JARAD RODRIGUEZ MD
[2018-07-02] MEDS: INSULIN (LEVEMIR) 100 UNITS/ML UNITS SQ SCH (10:56)
--- NOTE | 2018-07-02 12:05 | ECHO ---
Name: ANNIA COHEN Exam:Adult Echocardiogram Study Date: 07/02/2018 10:59 AM Age: 57 yrs Reason For Study: ALTERED MENTAL STATUS Height: 66 in Weight: 159 lb BSA: 1.8 m2 MMode/2D Measurements & Calculations IVSd: 0.74 cm Ao root diam: 2.5 cm LVIDd: 4.0 cm LA dimension: 2.3 cm LVIDs: 3.0 cm LVPWd: 0.73 cm EDV(Teich): 71.8 ml LVOT diam: 2.0 cm ESV(Teich): 33.6 ml Doppler Measurements & Calculations MV E max ramy: 60.7 cm/sec Ao V2 max: 146.8 cm/sec MV A max ramy: 66.1 cm/sec Ao max P.6 mmHg MV E/A: 0.92 Ao V2 mean: 106.9 cm/sec Ao mean P.1 mmHg Ao V2 VTI: 27.5 cm SEN(I,D): 2.1 cm2 SEN(V,D): 2.2 cm2 LV V1 max P.3 mmHg SV(LVOT): 57.6 ml LV V1 mean P.3 mmHg LV V1 max: 103.2 cm/sec LV V1 mean: 71.3 cm/sec LV V1 VTI: 18.8 cm TR max ramy: 171.7 cm/sec Med Peak E' Ramy: 6.8 cm/sec TR max P.8 mmHg Med E/e': 9.0 Lat Peak E' Ramy: 5.3 cm/sec Lat E/e': 11.5 Left Ventricle Left ventricular systolic function is normal. Ejection Fraction = 50-55%. Right Ventricle The right ventricle is normal in size and function. Atria Normal left and right atrial size and function. Mitral Valve The mitral valve is normal in structure and function. There is no mitral valve stenosis. Tricuspid Valve The tricuspid valve is normal in structure and function. There is mild tricuspid regurgitation. Aortic Valve The aortic valve opens well. No hemodynamically significant valvular aortic stenosis. No aortic regur gitation is present. Pulmonic Valve The pulmonic valve is not well seen, but is grossly normal. There is no pulmonic valvular stenosis. Great Vessels The aortic root is normal size. Pericardium/Pleura There is no pericardial effusion. Interpretation Summary Left ventricular systolic function is normal. Ejection Fraction = 50-55%. The right ventricle is normal in size and function. There is mild tricuspid regurgitation. There is no pericardial effusion. MD Turner *Nathaniel 07/02/2018 12:05 PM
[2018-07-02] MEDS: levETIRAcetam 500 MG/5 ML INJECTION VIAL IVPB SCH ×2 (12:25→21:44)
--- NOTE | 2018-07-02 13:49 | PN ---
Physical Exam: SUBJECTIVE: Patient seen and examined this AM. Reported by nursing staff to have had 3 seizures this AM, lasting for 30secs to 1 minute. Nursing staff who witnessed event described as tonic clonic with arching of back and clinching of jaw. During my interview, patient remained disoriented and confused. OBJECTIVE: Vital Signs Period Temp Pulse Resp BP Sys/Baxter Pulse Ox Last 24 Hr 98.7 F-100.1 F 90-108 16-20 117-156/70-84 97-98 GENERAL: NAD HEAD: NCAT EYES: PERRL, EOMI ENT: Moist mucous membranes NECK: Supple LUNGS: Clear to auscultation bilaterally, no wheezes, no crackles HEART: Regular rate and rhythm, S1, S2 without murmur ABDOMEN: Soft, nontender, nondistended, + bowel sounds EXTREMITIES: no edema NEUROLOGICAL: Sleepy but arousable, Able to follow command, Muscle strength 4/5 throughout. SKIN: Warm, dry Laboratory Last Values WBC 13.6 K/mm3 (4.0-10.0) H 07/02/18 07:00 RBC 4.03 M/mm3 (3.60-5.2) 07/02/18 07:00 Hgb 11.2 GM/dL (10.7-15.3) 07/02/18 07:00 Hct 33.7 % (32.4-45.2) 07/02/18 07:00 MCV 83.6 fl (80-96) 07/02/18 07:00 MCH 27.7 pg (25.7-33.7) 07/02/18 07:00 MCHC 33.2 g/dl (32.0-36.0) 07/02/18 07:00 RDW 14.1 % (11.6-15.6) 07/02/18 07:00 Plt Count 391 K/MM3 (134-434) 07/02/18 07:00 MPV 8.7 fl (7.5-11.1) 07/02/18 07:00 Absolute Neuts (auto) 10.0 K/mm3 (1.5-8.0) H 07/02/18 07:00 Neutrophils % 74.0 % (42.8-82.8) D 07/02/18 07:00 Neutrophils % (Manual) 92.0 % (42.8-82.8) H 07/01/18 17:52 Band Neutrophils % 3.0 % 07/01/18 17:52 Lymphocytes % 18.4 % (8-40) D 07/02/18 07:00 Lymphocytes % (Manual) 3.0 % (8-40) L 07/01/18 17:52 Monocytes % 6.7 % (3.8-10.2) D 07/02/18 07:00 Monocytes % (Manual) 2 % (3.8-10.2) L 07/01/18 17:52 Eosinophils % 0.1 % (0-4.5) D 07/02/18 07:00 Basophils % 0.8 % (0-2.0) D 07/02/18 07:00 Nucleated RBC % 0 % (0-0) 07/02/18 07:00 Hypochromia 1+ 07/01/18 17:52 Platelet Estimate Adequate 07/01/18 17:52 Platelet Comment No clumping noted 07/01/18 17:52 Anisocytosis 1+ 07/01/18 17:52 Macrocytosis 1+ 07/01/18 17:52 Ovalocytes 1+ 07/01/18 17:52 ESR 30 mm/hr (0-30) 07/02/18 07:00 PT with INR 12.00 SEC (9.7-13.0) 07/02/18 07:00 INR 1.02 (0.83-1.09) 07/02/18 07:00 PTT (Actin FS) 27.3 SECONDS (25.2-36.5) 07/02/18 07:00 VBG pH 7.36 (7.31-7.41) 07/01/18 23:10 POC VBG pCO2 43.9 mmHg (41-51) 07/01/18 23:10 POC VBG pO2 23.3 mmHg (30-40) L 07/01/18 23:10 VBG HCO3 23.9 mmol/L (23-29) 07/01/18 23:10 VBG O2 Sat (Leoy) 39.5 % (70-80) L 07/01/18 23:10 VBG Base Excess -1.1 meq/l (-2-2) 07/01/18 23:10 Sodium 146 mmol/L (136-145) H 07/02/18 07:00 Potassium 4.5 mmol/L (3.5-5.1) 07/02/18 07:00 Chloride 114 mmol/L (98-107) H 07/02/18 07:00 Carbon Dioxide 21 mmol/L (21-32) 07/02/18 07:00 Anion Gap 11 MMOL/L (8-16) 07/02/18 07:00 BUN 26 mg/dL (7-18) H 07/02/18 07:00 Creatinine 1.3 mg/dL (0.55-1.3) 07/02/18 07:00 Creat Clearance w eGFR 41.92 (>60) 07/02/18 07:00 POC Glucometer 170 UNITS (80-120) 07/02/18 12:15 Random Glucose 357 mg/dL (74-106) H* 07/02/18 07:00 Hemoglobin A1c % 12.5 % (4.2-6.3) H 07/02/18 07:00 Lactic Acid 2.2 mmol/L (0.4-2.0) H* 07/02/18 08:35 Calcium 9.6 mg/dL (8.5-10.1) 07/02/18 07:00 Phosphorus 3.2 mg/dL (2.5-4.9) 07/02/18 07:00 Magnesium 2.3 mg/dL (1.8-2.4) 07/02/18 07:00 Total Bilirubin 0.4 mg/dL (0.2-1) 07/02/18 07:00 AST 7 U/L (15-37) L 07/02/18 07:00 ALT 16 U/L (13-61) 07/02/18 07:00 Alkaline Phosphatase 68 U/L (45-117) 07/02/18 07:00 Creatine Kinase 80 U/L (26-192) 07/01/18 17:52 Troponin I < 0.02 ng/ml (0.00-0.05) 07/01/18 17:52 C-Reactive Protein < 0.3 MG/DL (0.00-0.3) 07/02/18 07:00 Total Protein 6.8 g/dl (6.4-8.2) 07/02/18 07:00 Albumin 3.4 g/dl (3.4-5.0) 07/02/18 07:00 Vitamin B12 2471 pg/ml (193-986) H 07/02/18 07:00 TSH 0.85 uIU/ml (0.358-3.74) 07/02/18 07:00 Urine Color Yellow 07/01/18 19:54 Urine Appearance Clear 07/01/18 19:54 Urine pH 5.0 (5.0-8.0) 07/01/18 19:54 Ur Specific [place] 1.024 (1.010-1.035) 07/01/18 19:54 Urine Protein 1+ (NEGATIVE) H 07/01/18 19:54 Urine Glucose (UA) 3+ (NEGATIVE) H 07/01/18 19:54 Urine Ketones 1+ (NEGATIVE) H 07/01/18 19:54 Urine Blood Trace (NEGATIVE) 07/01/18 19:54 Urine Nitrite Negative (NEGATIVE) 07/01/18 19:54 Urine Bilirubin Negative (NEGATIVE) 07/01/18 19:54 Urine Urobilinogen 0.2 mg/dL (0.2-1.0) 07/01/18 19:54 Ur Leukocyte Esterase Negative (NEGATIVE) 07/01/18 19:54 Urine WBC (Auto) 0 /hpf (0-5) 07/01/18 19:54 Urine RBC (Auto) 0 /hpf (0-4) 07/01/18 19:54 Urine Casts (Auto) 0 /lpf (0-8) 07/01/18 19:54 U Epithel Cells (Auto) 0.3 /HPF (0-5/HPF) 07/01/18 19:54 Urine Bacteria (Auto) 2.4 /hpf (NEGATIVE) 07/01/18 19:54 Acetone, Qual Positive moderate 2+ (NEGATIVE) H 07/01/18 23:10 RPR Titer Nonreactive (NONREACTIVE) 07/02/18 07:00 Influenza A (Rapid) Negative 07/02/18 03:24 Influenza B (Rapid) Negative 07/02/18 03:24 Active Medications Heparin Sodium (Porcine) (Heparin -) 5,000 unit SQ TID [facility] Last Admin: 07/02/18 06:41 Dose: 5,000 unit Sodium Chloride (Normal Saline -) 1,000 mls @ 100 mls/hr IV ASDIR [facility] Last Admin: 07/02/18 03:01 Dose: 100 mls/hr Insulin Aspart (Novolog Vial Sliding Scale -) 1 vial SQ ACHS [facility]; Protocol Last Admin: 07/02/18 12:23 Dose: Not Given Insulin Detemir (Levemir Vial) 25 units SQ DAILY [facility] Last Admin: 07/02/18 10:56 Dose: 10 units Levetiracetam (Keppra Injection -) 750 mg IVPB BID [facility] Last Admin: 07/02/18 12:25 Dose: 750 mg Lorazepam (Ativan Injection -) 1 mg IVPUSH Q6H PRN PRN Reason: seizure IMAGING: -CXR: No acute chest pathology. -Head CT without contrast: No CT evidence of acute intracranial pathology. There has been no definite interval change in comparison to a prior CT exam of . A mucus retention cyst/polyp is again seen within the alveolar recess of the left maxillary sinus. -EKG: Sinus tachycardia, VR 123, QTc 435 -ECHO: LV systolic function is normal. EF 50-55%, Mild TR ASSESSMENT/PLAN: 57 y/o F with PMHx of IDDM presented with 5 day history of generalized weakness , admitted for AMS and New onset Seizures. #New Onset Seizures -In the setting of Hyperglycemia; Still consider other etiologies including infection, malignancy -Head CT without contrast: No CT evidence of acute intracranial pathology. -Lorazepam PRN for Seizure events -Levetiracetam 750mg IV BID -Seizure, Aspiration precautions -Neurochecks Q4H -Neurology (Dr. [place]) Consulted, Appreciate rec's -EEG, Carotid dopplers, Brain MRI without contrast pending -Tele #AMS -In the setting of Hyperglycemia -Less likely infectious given Afebrile; Leukocytosis likely reactive, Seizures likely cause of Lactic acidosis -Influeza negative, RPR nonreactive -Blood and Urine Cx, Additional labwork pending #Uncontrolled DM -A1c 12.5% -Detemir 10u AM -ISS BGMs ACHS #FEN -NS @ 100 mls/hr -Hyperkalemia and Hypercalcemia resolved; Monitor lytes -NPO #PPx -DVT: Heparin TID Visit type - Emergency Visit Emergency Visit: Yes ED Registration Date: 07/02/18 Care time: The patient presented to the Emergency Department on the above date and was hospitalized for further evaluation of their emergent condition. - New Patient This patient is new to me today: Yes Date on this admission: 07/02/18 - Critical Care Critical Care patient: No - Discharge Referral Referred to [facility] Med P.C.: No
--- NOTE | 2018-07-02 16:58 | PN ---
Teaching Attending Note Name of Resident: Flaquita Herrera ATTENDING PHYSICIAN STATEMENT I saw and evaluated the patient. I reviewed the resident's note and discussed the case with the resident. I agree with the resident's findings and plan as documented. SUBJECTIVE: Patient had several seizures this morning. She is lethargic and confused. OBJECTIVE: Vital Signs Period Temp Pulse Resp BP Sys/Baxter Pulse Ox Last 24 Hr 98.4 F-100.1 F 85-108 16-20 117-156/66-84 97-98 HEART: S1S2, tachycardic LUNGS: Clear ABDOMEN: Soft, non-distended, normal BS EXTREMITIES: No edema Laboratory Results - last 24 hr 07/01/18 07/01/18 07/01/18 00:05 17:52 17:52 WBC 14.5 H RBC 4.35 Hgb 12.1 Hct 36.6 MCV 84.1 MCH 27.8 MCHC 33.0 RDW 14.0 Plt Count 398 D MPV 8.6 Absolute Neuts (auto) 13.8 H Neutrophils % 94.6 H D Neutrophils % (Manual) 92.0 H Band Neutrophils % 3.0 Lymphocytes % 3.7 L D Lymphocytes % (Manual) 3.0 L Monocytes % 1.6 L Monocytes % (Manual) 2 L Eosinophils % 0.0 D Basophils % 0.1 Nucleated RBC % 0 Hypochromia 1+ Platelet Estimate Adequate Platelet Comment No clumping noted Anisocytosis 1+ Macrocytosis 1+ Ovalocytes 1+ ESR PT with INR INR PTT (Actin FS) VBG pH POC VBG pCO2 POC VBG pO2 VBG HCO3 VBG O2 Sat ([place]) VBG Base Excess Sodium 136 Potassium 5.3 H Chloride 101 Carbon Dioxide 24 Anion Gap 12 BUN 30 H Creatinine 1.3 Creat Clearance w eGFR 41.92 POC Glucometer Random Glucose 590 H* Hemoglobin A1c % Lactic Acid 1.5 Calcium 10.3 H Phosphorus Magnesium Total Bilirubin 0.5 AST 11 L ALT 18 Alkaline Phosphatase 82 Creatine Kinase 80 Troponin I < 0.02 C-Reactive Protein Total Protein 7.8 Albumin 3.8 Vitamin B12 TSH Urine Color Urine Appearance Urine pH Ur Specific [place] Urine Protein Urine Glucose (UA) Urine Ketones Urine Blood Urine Nitrite Urine Bilirubin Urine Urobilinogen Ur Leukocyte Esterase Urine WBC (Auto) Urine RBC (Auto) Urine Casts (Auto) U Epithel Cells (Auto) Urine Bacteria (Auto) Acetone, Qual RPR Titer Influenza A (Rapid) Influenza B (Rapid) 07/01/18 07/01/18 07/01/18 17:54 19:54 23:10 WBC RBC Hgb Hct MCV MCH MCHC RDW Plt Count MPV Absolute Neuts (auto) Neutrophils % Neutrophils % (Manual) Band Neutrophils % Lymphocytes % Lymphocytes % (Manual) Monocytes % Monocytes % (Manual) Eosinophils % Basophils % Nucleated RBC % Hypochromia Platelet Estimate Platelet Comment Anisocytosis Macrocytosis Ovalocytes ESR PT with INR INR PTT (Actin FS) VBG pH 7.36 POC VBG pCO2 43.9 POC VBG pO2 23.3 L VBG HCO3 23.9 VBG O2 Sat ([place]) 39.5 L VBG Base Excess -1.1 Sodium Potassium Chloride Carbon Dioxide Anion Gap BUN Creatinine Creat Clearance w eGFR POC Glucometer 583 Random Glucose Hemoglobin A1c % Lactic Acid Calcium Phosphorus Magnesium Total Bilirubin AST ALT Alkaline Phosphatase Creatine Kinase Troponin I C-Reactive Protein Total Protein Albumin Vitamin B12 TSH Urine Color Yellow Urine Appearance Clear Urine pH 5.0 Ur Specific [place] 1.024 Urine Protein 1+ H Urine Glucose (UA) 3+ H Urine Ketones 1+ H Urine Blood Trace Urine Nitrite Negative Urine Bilirubin Negative Urine Urobilinogen 0.2 Ur Leukocyte Esterase Negative Urine WBC (Auto) 0 Urine RBC (Auto) 0 Urine Casts (Auto) 0 U Epithel Cells (Auto) 0.3 Urine Bacteria (Auto) 2.4 Acetone, Qual RPR Titer Influenza A (Rapid) Influenza B (Rapid) 07/01/18 07/02/18 07/02/18 23:10 01:48 03:24 WBC RBC Hgb Hct MCV MCH MCHC RDW Plt Count MPV Absolute Neuts (auto) Neutrophils % Neutrophils % (Manual) Band Neutrophils % Lymphocytes % Lymphocytes % (Manual) Monocytes % Monocytes % (Manual) Eosinophils % Basophils % Nucleated RBC % Hypochromia Platelet Estimate Platelet Comment Anisocytosis Macrocytosis Ovalocytes ESR PT with INR INR PTT (Actin FS) VBG pH POC VBG pCO2 POC VBG pO2 VBG HCO3 VBG O2 Sat ([place]) VBG Base Excess Sodium Potassium Chloride Carbon Dioxide Anion Gap BUN Creatinine Creat Clearance w eGFR POC Glucometer 283 Random Glucose Hemoglobin A1c % Lactic Acid Calcium Phosphorus Magnesium Total Bilirubin AST ALT Alkaline Phosphatase Creatine Kinase Troponin I C-Reactive Protein Total Protein Albumin Vitamin B12 TSH Urine Color Urine Appearance Urine pH Ur Specific [place] Urine Protein Urine Glucose (UA) Urine Ketones Urine Blood Urine Nitrite Urine Bilirubin Urine Urobilinogen Ur Leukocyte Esterase Urine WBC (Auto) Urine RBC (Auto) Urine Casts (Auto) U Epithel Cells (Auto) Urine Bacteria (Auto) Acetone, Qual Positive moderate 2+ H RPR Titer Influenza A (Rapid) Negative Influenza B (Rapid) Negative 07/02/18 07/02/18 07/02/18 03:35 06:17 07:00 WBC 13.6 H RBC 4.03 Hgb 11.2 Hct 33.7 MCV 83.6 MCH 27.7 MCHC 33.2 RDW 14.1 Plt Count 391 MPV 8.7 Absolute Neuts (auto) 10.0 H Neutrophils % 74.0 D Neutrophils % (Manual) Band Neutrophils % Lymphocytes % 18.4 D Lymphocytes % (Manual) Monocytes % 6.7 D Monocytes % (Manual) Eosinophils % 0.1 D Basophils % 0.8 D Nucleated RBC % 0 Hypochromia Platelet Estimate Platelet Comment Anisocytosis Macrocytosis Ovalocytes ESR PT with INR INR PTT (Actin FS) VBG pH POC VBG pCO2 POC VBG pO2 VBG HCO3 VBG O2 Sat ([place]) VBG Base Excess Sodium Potassium Chloride Carbon Dioxide Anion Gap BUN Creatinine Creat Clearance w eGFR POC Glucometer 354 Random Glucose Hemoglobin A1c % 12.4 H Lactic Acid Calcium Phosphorus Magnesium Total Bilirubin AST ALT Alkaline Phosphatase Creatine Kinase Troponin I C-Reactive Protein Total Protein Albumin Vitamin B12 TSH Urine Color Urine Appearance Urine pH Ur Specific [place] Urine Protein Urine Glucose (UA) Urine Ketones Urine Blood Urine Nitrite Urine Bilirubin Urine Urobilinogen Ur Leukocyte Esterase Urine WBC (Auto) Urine RBC (Auto) Urine Casts (Auto) U Epithel Cells (Auto) Urine Bacteria (Auto) Acetone, Qual RPR Titer Influenza A (Rapid) Influenza B (Rapid) 07/02/18 07/02/18 07/02/18 07:00 07:00 07:00 WBC RBC Hgb Hct MCV MCH MCHC RDW Plt Count MPV Absolute Neuts (auto) Neutrophils % Neutrophils % (Manual) Band Neutrophils % Lymphocytes % Lymphocytes % (Manual) Monocytes % Monocytes % (Manual) Eosinophils % Basophils % Nucleated RBC % Hypochromia Platelet Estimate Platelet Comment Anisocytosis Macrocytosis Ovalocytes ESR PT with INR 12.00 INR 1.02 PTT (Actin FS) 27.3 VBG pH POC VBG pCO2 POC VBG pO2 VBG HCO3 VBG O2 Sat ([place]) VBG Base Excess Sodium 146 H Potassium 4.5 Chloride 114 H Carbon Dioxide 21 Anion Gap 11 BUN 26 H Creatinine 1.3 Creat Clearance w eGFR 41.92 POC Glucometer Random Glucose 357 H* Hemoglobin A1c % 12.5 H Lactic Acid Calcium 9.6 Phosphorus 3.2 Magnesium 2.3 Total Bilirubin 0.4 AST 7 L ALT 16 Alkaline Phosphatase 68 Creatine Kinase Troponin I C-Reactive Protein Cancelled Total Protein 6.8 Albumin 3.4 Vitamin B12 Cancelled TSH 0.85 Urine Color Urine Appearance Urine pH Ur Specific [place] Urine Protein Urine Glucose (UA) Urine Ketones Urine Blood Urine Nitrite Urine Bilirubin Urine Urobilinogen Ur Leukocyte Esterase Urine WBC (Auto) Urine RBC (Auto) Urine Casts (Auto) U Epithel Cells (Auto) Urine Bacteria (Auto) Acetone, Qual RPR Titer Influenza A (Rapid) Influenza B (Rapid) 07/02/18 07/02/18 07/02/18 07:00 07:00 07:00 WBC RBC Hgb Hct MCV MCH MCHC RDW Plt Count MPV Absolute Neuts (auto) Neutrophils % Neutrophils % (Manual) Band Neutrophils % Lymphocytes % Lymphocytes % (Manual) Monocytes % Monocytes % (Manual) Eosinophils % Basophils % Nucleated RBC % Hypochromia Platelet Estimate Platelet Comment Anisocytosis Macrocytosis Ovalocytes ESR PT with INR INR PTT (Actin FS) VBG pH POC VBG pCO2 POC VBG pO2 VBG HCO3 VBG O2 Sat ([place]) VBG Base Excess Sodium Potassium Chloride Carbon Dioxide Anion Gap BUN Creatinine Creat Clearance w eGFR POC Glucometer Random Glucose Hemoglobin A1c % Lactic Acid Calcium Phosphorus Magnesium Total Bilirubin AST ALT Alkaline Phosphatase Creatine Kinase Troponin I C-Reactive Protein < 0.3 Total Protein Albumin Vitamin B12 2471 H TSH Urine Color Urine Appearance Urine pH Ur Specific [place] Urine Protein Urine Glucose (UA) Urine Ketones Urine Blood Urine Nitrite Urine Bilirubin Urine Urobilinogen Ur Leukocyte Esterase Urine WBC (Auto) Urine RBC (Auto) Urine Casts (Auto) U Epithel Cells (Auto) Urine Bacteria (Auto) Acetone, Qual RPR Titer Nonreactive Influenza A (Rapid) Influenza B (Rapid) 07/02/18 07/02/18 07/02/18 07:00 08:35 09:22 WBC RBC Hgb Hct MCV MCH MCHC RDW Plt Count MPV Absolute Neuts (auto) Neutrophils % Neutrophils % (Manual) Band Neutrophils % Lymphocytes % Lymphocytes % (Manual) Monocytes % Monocytes % (Manual) Eosinophils % Basophils % Nucleated RBC % Hypochromia Platelet Estimate Platelet Comment Anisocytosis Macrocytosis Ovalocytes ESR 30 PT with INR INR PTT (Actin FS) VBG pH POC VBG pCO2 POC VBG pO2 VBG HCO3 VBG O2 Sat ([place]) VBG Base Excess Sodium Potassium Chloride Carbon Dioxide Anion Gap BUN Creatinine Creat Clearance w eGFR POC Glucometer 189 Random Glucose Hemoglobin A1c % Lactic Acid 2.2 H* Calcium Phosphorus Magnesium Total Bilirubin AST ALT Alkaline Phosphatase Creatine Kinase Troponin I C-Reactive Protein Total Protein Albumin Vitamin B12 TSH Urine Color Urine Appearance Urine pH Ur Specific [place] Urine Protein Urine Glucose (UA) Urine Ketones Urine Blood Urine Nitrite Urine Bilirubin Urine Urobilinogen Ur Leukocyte Esterase Urine WBC (Auto) Urine RBC (Auto) Urine Casts (Auto) U Epithel Cells (Auto) Urine Bacteria (Auto) Acetone, Qual RPR Titer Influenza A (Rapid) Influenza B (Rapid) 07/02/18 07/02/18 12:15 16:37 WBC RBC Hgb Hct MCV MCH MCHC RDW Plt Count MPV Absolute Neuts (auto) Neutrophils % Neutrophils % (Manual) Band Neutrophils % Lymphocytes % Lymphocytes % (Manual) Monocytes % Monocytes % (Manual) Eosinophils % Basophils % Nucleated RBC % Hypochromia Platelet Estimate Platelet Comment Anisocytosis Macrocytosis Ovalocytes ESR PT with INR INR PTT (Actin FS) VBG pH POC VBG pCO2 POC VBG pO2 VBG HCO3 VBG O2 Sat ([place]) VBG Base Excess Sodium Potassium Chloride Carbon Dioxide Anion Gap BUN Creatinine Creat Clearance w eGFR POC Glucometer 170 165 Random Glucose Hemoglobin A1c % Lactic Acid Calcium Phosphorus Magnesium Total Bilirubin AST ALT Alkaline Phosphatase Creatine Kinase Troponin I C-Reactive Protein Total Protein Albumin Vitamin B12 TSH Urine Color Urine Appearance Urine pH Ur Specific [place] Urine Protein Urine Glucose (UA) Urine Ketones Urine Blood Urine Nitrite Urine Bilirubin Urine Urobilinogen Ur Leukocyte Esterase Urine WBC (Auto) Urine RBC (Auto) Urine Casts (Auto) U Epithel Cells (Auto) Urine Bacteria (Auto) Acetone, Qual RPR Titer Influenza A (Rapid) Influenza B (Rapid) Current Medications Generic Name Dose Route Start Last Admin Trade Name Freq PRN Reason Stop Dose Admin Heparin Sodium (Porcine) 5,000 unit 07/02/18 06:00 07/02/18 15:04 Heparin - SQ 5,000 unit TID ISAURA Administration Sodium Chloride 1,000 mls @ 100 mls/hr 07/02/18 02:15 07/02/18 03:01 Normal Saline - IV 100 mls/hr ASDIR [facility] Administration Insulin Aspart 1 vial 07/02/18 07:00 07/02/18 12:23 Novolog Vial Sliding Scale - SQ Not Given ACHS [facility] Protocol Insulin Detemir 25 units 07/02/18 10:00 07/02/18 10:56 Levemir Vial SQ 10 units DAILY [facility] Administration Levetiracetam 750 mg 07/02/18 12:00 07/02/18 12:25 Keppra Injection - IVPB 750 mg BID [facility] Administration Lorazepam 1 mg 07/02/18 06:46 Ativan Injection - IVPUSH Q6H PRN seizure ASSESSMENT AND PLAN: This is a 57 year old woman with a history of type 2 DM who presented to the ED with generalized weakness and confusion. 1. Seizures, new-onset - Head CT uremarkable - ? secondary to uncontrolled diabetes - Continue Keppra - Check drug screen - MRI of brain, EEG ordered 2. Acute metabolic encephalopathy - Secondary to hyperglycemia, post-ictal 3. Lactic acidemia - Likely secondary to seizures 4. Leukocytosis - Likely reactive - No obvious infection 5. Type 2 DM, uncontrolled - HbA1c 12.5 - Family reports she is compliant with her insulin regimen - Continue Levemir, Novolog sliding scale - control is improving 6. Stage 3 CKD - Stable 7. Hyperkalemia - Improved 8. Hypercalcemia - Improved
[2018-07-02] MEDS ORDERED: VANCOMYCIN 1 GM PREMIX - 1 GM/200 ML BAG IVPB ONE (21:02)
[2018-07-03] MEDS: SODIUM CHLORIDE 1,000 ML IV SCH ×2 (05:57→21:23)
[2018-07-03] MEDS: HEPARIN NA (PORCINE) 5,000 UNITS/ML 1ML VIAL SQ SCH ×3 (05:58→21:23)
[2018-07-03] MEDS: INSULIN SLIDING SCALE (NOVOLOG) 1 VIAL SQ SCH ×4 (06:00→21:22)
[2018-07-03 06:33] LABS: BASO % 0.7 % (0-2.0); EOS % 0.2 % (0-4.5); HEMATOCRIT 30.9 % (32.4-45.2); HEMOGLOBIN 10.3 GM/dL (10.7-15.3); LYMPH % 12.9 % (8-40); MCH 27.6 pg (25.7-33.7); MCHC 33.4 g/dl (32.0-36.0); MEAN CELL VOLUME 82.7 fl (80-96); MEAN PLT VOLUME 8.3 fl (7.5-11.1); MONO % 6.1 % (3.8-10.2); NEUT % 80.1 % (42.8-82.8); PLATELET COUNT 347 K/MM3 (134-434); RBC 3.74 M/mm3 (3.60-5.2); RDW 14.4 % (11.6-15.6); WHITE BLOOD COUNT 20.1 K/mm3 (4.0-10.0)
[2018-07-03 07:03] LABS: ALBUMIN 3.1 g/dl (3.4-5.0); ALK PHOS 65 U/L (45-117); ANION GAP 8 MMOL/L (8-16); BILIRUBIN,TOTAL 0.4 mg/dL (0.2-1); BLOOD UREA NITROGEN 22 mg/dL (7-18); CALCIUM 9.1 mg/dL (8.5-10.1); CHLORIDE 125 mmol/L (98-107); CO2 23 mmol/L (21-32); GLUCOSE,RANDOM 95 mg/dL (74-106); MAGNESIUM 2.5 mg/dL (1.8-2.4); PHOSPHOROUS 2.7 mg/dL (2.5-4.9); POTASSIUM 3.6 mmol/L (3.5-5.1); SGOT/AST 9 U/L (15-37); SGPT/ALT 11 U/L (13-61); SODIUM 156 mmol/L (136-145); TOT PROT 6.3 g/dl (6.4-8.2)
[2018-07-03] MEDS ORDERED: VANCOMYCIN 750 MG in DEXTROSE 5%-WATER - 250 ML IVPB ONE (08:15)
[2018-07-03] MEDS ORDERED: SODIUM CHLORIDE 0.45% 1,000 ML IV SCH (09:15)
[2018-07-03] MEDS: levETIRAcetam 500 MG/5 ML INJECTION VIAL IVPB SCH ×2 (10:22→21:23)
[2018-07-03 11:14] LABS: ANISOCYTOSIS 1+; MACROCYTOSIS 0; PLATELET ESTIMATE NORMAL
[2018-07-03] MEDS: INSULIN (LEVEMIR) 100 UNITS/ML UNITS SQ SCH (12:29)
--- NOTE | 2018-07-03 12:36 | PN ---
Progress Note (short form) - Note Progress Note: Neurology CHIEF COMPLAINT: Generalized Weakness HISTORY OF PRESENT ILLNESS: 57 y/o lady with a significant past medical history of IDDM who presented to [facility] due to a 5 day history of generalized weakness and altered mental status. Per son via phone, pt has not been herself for the past 5 days. Son denied any recent infections or changes in lifestyle in pt. Endorsed pt is compliant with her DM medications but glucose on presentation was 590, noted to be without anion gap. Only significant event son states is that pt had her molar teeth removed 2 weeks ago. Furthermore, son denied any recent infections or lifestyle changes. Endorsed that pt was treated at our hospital approximately 1 year ago for the same symptoms which were attributed to her Diabetes. Of note, elevated WBC to 14.5. CT head completed and without acute changes. Patient is awake, alert, not minimally communicative. Seen at bedside with nurse, last BGM in 300's. Concern for patient's recurrent seizures, reportedly 3 events day of presentation to ER. She was put on Keppra 500mg twice daily, advised increased to 750mg twice daily. Has not had seizure recurrence overnight and stable during my evaluation with increased to mental status and communication. Requires ongoing tighter glycemic control as metabolic disturbance likely precipitating seizure events. Active Medications Heparin Sodium (Porcine) (Heparin -) 5,000 unit SQ TID [facility] Last Admin: 07/03/18 05:58 Dose: 5,000 unit Sodium Chloride (Normal Saline -) 1,000 mls @ 100 mls/hr IV ASDIR [facility] Last Admin: 07/03/18 05:57 Dose: 100 mls/hr Sodium Chloride (1/2 Normal Saline) 1,000 mls @ 100 mls/hr IV ASDIR [facility] Last Admin: 07/03/18 09:25 Dose: 100 mls/hr Insulin Aspart (Novolog Vial Sliding Scale -) 1 vial SQ ACHS [facility]; Protocol Last Admin: 07/03/18 12:30 Dose: 4 units Insulin Detemir (Levemir Vial) 25 units SQ DAILY [facility] Last Admin: 07/03/18 12:29 Dose: Not Given Levetiracetam (Keppra Injection -) 750 mg IVPB BID [facility] Last Admin: 07/03/18 10:22 Dose: 750 mg Lorazepam (Ativan Injection -) 1 mg IVPUSH Q6H PRN PRN Reason: seizure PHYSICAL EXAMINATION Vital Signs Period Temp Pulse Resp BP Sys/Baxter Pulse Ox Last 24 Hr 97.6 F-98.4 F 85-104 18-20 104-125/65-73 GENERAL: AAOx2 HEAD: Atraumatic/Normocephalic EYES: EOMI Sclera Clear EARS, NOSE, THROAT:MMM NECK: Supple No JVD appreciated LUNGS: CTAB HEART: RRR Nl S1S2 ABDOMEN: Soft NDNT LOWER EXTREMITIES: No Onychomycosis No pitting edema NEUROLOGICAL: Cranial nerves II-XII intact. Arousable but not communicative, moves extremities grossly, sensory intact SKIN: No rashes or lesions appreciated CBCD WBC 20.1 K/mm3 (4.0-10.0) H 07/03/18 05:30 RBC 3.74 M/mm3 (3.60-5.2) 07/03/18 05:30 Hgb 10.3 GM/dL (10.7-15.3) L 07/03/18 05:30 Hct 30.9 % (32.4-45.2) L 07/03/18 05:30 MCV 82.7 fl (80-96) 07/03/18 05:30 MCHC 33.4 g/dl (32.0-36.0) 07/03/18 05:30 RDW 14.4 % (11.6-15.6) 07/03/18 05:30 Plt Count 347 K/MM3 (134-434) 07/03/18 05:30 MPV 8.3 fl (7.5-11.1) 07/03/18 05:30 CMP Sodium 156 mmol/L (136-145) H 07/03/18 05:30 Potassium 3.6 mmol/L (3.5-5.1) 07/03/18 05:30 Chloride 125 mmol/L (98-107) H 07/03/18 05:30 Carbon Dioxide 23 mmol/L (21-32) 07/03/18 05:30 Anion Gap 8 MMOL/L (8-16) 07/03/18 05:30 BUN 22 mg/dL (7-18) H 07/03/18 05:30 Creatinine 1.0 mg/dL (0.55-1.3) 07/03/18 05:30 Creat Clearance w eGFR 56.75 (>60) 07/03/18 05:30 Random Glucose 95 mg/dL (74-106) 07/03/18 05:30 Calcium 9.1 mg/dL (8.5-10.1) 07/03/18 05:30 Total Bilirubin 0.4 mg/dL (0.2-1) 07/03/18 05:30 AST 9 U/L (15-37) L 07/03/18 05:30 ALT 11 U/L (13-61) L 07/03/18 05:30 Alkaline Phosphatase 65 U/L (45-117) 07/03/18 05:30 Total Protein 6.3 g/dl (6.4-8.2) L 07/03/18 05:30 Albumin 3.1 g/dl (3.4-5.0) L 07/03/18 05:30 CARDIAC ENZYMES Creatine Kinase 80 U/L (26-192) 07/01/18 17:52 Troponin I < 0.02 ng/ml (0.00-0.05) 07/01/18 17:52 ASSESSMENT/PLAN: 57 y/o lady with a significant past medical history of IDDM who presented to [facility] due to a 5 day history of generalized weakness and altered mental status. Per son via phone, pt has not been herself for the past 5 days. Son denied any recent infections or changes in lifestyle in pt. Endorsed pt is compliant with her DM medications but glucose on presentation was 590, noted to be without anion gap. Only significant event son states is that pt had her molar teeth removed 2 weeks ago. Furthermore, son denied any recent infections or lifestyle changes. Endorsed that pt was treated at our hospital approximately 1 year ago for the same symptoms which were attributed to her Diabetes. Of note, elevated WBC to 14.5. T head completed and without acute changes. Patient is awake, alert, not minimally communicative. Seen at bedside with nurse, last BGM in 's. Concern for patient's recurrent seizures, reportedly 3 events day of presentation to ER. She was put on Keppra 500mg twice daily, advised increased to 750mg twice daily. Has not had seizure recurrence overnight and stable during my evaluation with increased to mental status and communication. Requires ongoing tighter glycemic control as metabolic disturbance likely precipitating seizure events. EEG not likely to be completed over weekend, clinically improved. Can give Ativan PRN for seizure events, no more than 8mg in 24hrs but has improved. Continue monitoring for seizures. If subsequent events, can further increase Keppra to 1000mg twice daily. Insulin sliding scale, adequate hydration, monitor BGMs, maintain tight glycemic control. DVT ppx.
--- NOTE | 2018-07-03 12:42 | PN ---
Progress Note (short form) - Note Progress Note: ID CONSULT DICTATED +BC ? SIGNIFICANCE REPEAT BC X 2 EMPIRIC VANCOMYCIN PENDING C/S
--- NOTE | 2018-07-03 13:00 | PN ---
Physical Exam: SUBJECTIVE: Patient seen and examined. Says she feels "weird" but could not specify what she is feeling. No acute events overnight. OBJECTIVE: Vital Signs Period Temp Pulse Resp BP Sys/Baxter Pulse Ox Last 24 Hr 97.6 F-98.4 F 85-104 18-20 104-125/65-73 GENERAL: A/o x 1. NAD. slurred speech. confused HEAD: NCAT EYES: PERRL, EOMI ENT: Moist mucous membranes NECK: Supple LUNGS: Clear to auscultation bilaterally, no wheezes, no crackles HEART: Regular rate and rhythm, S1, S2 without murmur ABDOMEN: Soft, nontender, nondistended, + bowel sounds EXTREMITIES: no edema NEUROLOGICAL: asymmetrical nasal folds. Able to follow command, Muscle strength 5/5 throughout. 2+ reflex throughout Laboratory Results - last 24 hr 07/02/18 07/02/18 07/02/18 07:00 07:00 08:35 WBC RBC Hgb Hct MCV MCH MCHC RDW Plt Count MPV Absolute Neuts (auto) Neutrophils % Neutrophils % (Manual) Band Neutrophils % Lymphocytes % Lymphocytes % (Manual) Monocytes % Monocytes % (Manual) Eosinophils % Eosinophils % (Manual) Basophils % Basophils % (Manual) Myelocytes % (Man) Promyelocytes % (Man) Blast Cells % (Manual) Nucleated RBC % Metamyelocytes Hypochromia Platelet Estimate Polychromasia Poikilocytosis Anisocytosis Microcytosis Macrocytosis Sodium Potassium Chloride Carbon Dioxide Anion Gap BUN Creatinine Creat Clearance w eGFR POC Glucometer Random Glucose Calcium Phosphorus Magnesium Total Bilirubin AST ALT Alkaline Phosphatase Total Protein Albumin Prolactin 11.2 PTH Intact 31 HIV Genotype Non reactive 07/02/18 07/02/18 07/03/18 16:37 21:40 05:30 WBC 20.1 H RBC 3.74 Hgb 10.3 L Hct 30.9 L MCV 82.7 MCH 27.6 MCHC 33.4 RDW 14.4 Plt Count 347 MPV 8.3 Absolute Neuts (auto) 16.1 H Neutrophils % 80.1 Neutrophils % (Manual) 82.0 Band Neutrophils % 0.0 Lymphocytes % 12.9 D Lymphocytes % (Manual) 11.0 D Monocytes % 6.1 Monocytes % (Manual) 3 L Eosinophils % 0.2 D Eosinophils % (Manual) 0.0 Basophils % 0.7 Basophils % (Manual) 2.0 Myelocytes % (Man) 1 Promyelocytes % (Man) 0 Blast Cells % (Manual) 0 Nucleated RBC % 0 Metamyelocytes 1 Hypochromia 0 Platelet Estimate Normal Polychromasia 0 Poikilocytosis 0 Anisocytosis 1+ Microcytosis 1+ Macrocytosis 0 Sodium Potassium Chloride Carbon Dioxide Anion Gap BUN Creatinine Creat Clearance w eGFR POC Glucometer 165 96 Random Glucose Calcium Phosphorus Magnesium Total Bilirubin AST ALT Alkaline Phosphatase Total Protein Albumin Prolactin PTH Intact HIV Genotype 07/03/18 07/03/18 07/03/18 05:30 05:59 08:52 WBC RBC Hgb Hct MCV MCH MCHC RDW Plt Count MPV Absolute Neuts (auto) Neutrophils % Neutrophils % (Manual) Band Neutrophils % Lymphocytes % Lymphocytes % (Manual) Monocytes % Monocytes % (Manual) Eosinophils % Eosinophils % (Manual) Basophils % Basophils % (Manual) Myelocytes % (Man) Promyelocytes % (Man) Blast Cells % (Manual) Nucleated RBC % Metamyelocytes Hypochromia Platelet Estimate Polychromasia Poikilocytosis Anisocytosis Microcytosis Macrocytosis Sodium 156 H Potassium 3.6 Chloride 125 H Carbon Dioxide 23 Anion Gap 8 BUN 22 H Creatinine 1.0 Creat Clearance w eGFR 56.75 POC Glucometer 89 125 Random Glucose 95 Calcium 9.1 Phosphorus 2.7 Magnesium 2.5 H Total Bilirubin 0.4 AST 9 L ALT 11 L Alkaline Phosphatase 65 Total Protein 6.3 L Albumin 3.1 L Prolactin PTH Intact HIV Genotype 07/03/18 12:25 WBC RBC Hgb Hct MCV MCH MCHC RDW Plt Count MPV Absolute Neuts (auto) Neutrophils % Neutrophils % (Manual) Band Neutrophils % Lymphocytes % Lymphocytes % (Manual) Monocytes % Monocytes % (Manual) Eosinophils % Eosinophils % (Manual) Basophils % Basophils % (Manual) Myelocytes % (Man) Promyelocytes % (Man) Blast Cells % (Manual) Nucleated RBC % Metamyelocytes Hypochromia Platelet Estimate Polychromasia Poikilocytosis Anisocytosis Microcytosis Macrocytosis Sodium Potassium Chloride Carbon Dioxide Anion Gap BUN Creatinine Creat Clearance w eGFR POC Glucometer 219 Random Glucose Calcium Phosphorus Magnesium Total Bilirubin AST ALT Alkaline Phosphatase Total Protein Albumin Prolactin PTH Intact HIV Genotype Active Medications Generic Name Dose Route Start Last Admin Trade Name Freq PRN Reason Stop Dose Admin Heparin Sodium (Porcine) 5,000 unit 07/02/18 06:00 07/03/18 05:58 Heparin - SQ 5,000 unit TID [facility] Administration Sodium Chloride 1,000 mls @ 100 mls/hr 07/02/18 02:15 07/03/18 05:57 Normal Saline - IV 100 mls/hr ASDIR [facility] Administration Sodium Chloride 1,000 mls @ 100 mls/hr 07/03/18 09:15 07/03/18 09:25 1/2 Normal Saline IV 100 mls/hr ASDIR [facility] Administration Vancomycin HCl 1,000 mg/ 250 mls @ 166.667 mls/hr 07/03/18 13:00 Dextrose IVPB Q12H [facility] Protocol Insulin Aspart 1 vial 07/02/18 07:00 07/03/18 12:30 Novolog Vial Sliding Scale - SQ 4 units ACHS [facility] Administration Protocol Insulin Detemir 25 units 07/02/18 10:00 07/03/18 12:29 Levemir Vial SQ Not Given DAILY [facility] Levetiracetam 750 mg 07/02/18 12:00 07/03/18 10:22 Keppra Injection - IVPB 750 mg BID [facility] Administration Lorazepam 1 mg 07/02/18 06:46 Ativan Injection - IVPUSH Q6H PRN seizure ASSESSMENT/PLAN: 57 y/o F with PMHx of IDDM presented with 5 day history of generalized weakness , admitted for AMS and New onset Seizures. #New Onset Seizures -In the setting of Hyperglycemia vs CVA vs Infectious process -Head CT without contrast: No CT evidence of acute intracranial pathology. -Brain MRI w/o contrast unremarkable. Wait for official read. -Lorazepam PRN for Seizure events -Cont. Levetiracetam 750mg IV BID -Seizure, Aspiration precautions -Neurochecks Q4H -Neurology (Dr. [place]) Consulted, Appreciate rec's -EEG, Carotid dopplers -Tele #Acute metablic encephalopathy -In the setting of Hyperglycemia vs CVA vs infectious process -Afebrile -Leukocytosis likely reactive -Influeza negative, RPR nonreactive -1 bottle Culture +. Likely contaminant. -Repeat Blood cultures -Cont. Emperical Vanco until c/s #Uncontrolled DM -A1c 12.5% -Detemir 10u AM -ISS BGMs ACHS #FEN -Change to 1/2 NS @ 100 mls/hr -Monitor electrolytes -NPO #PPx -DVT: Heparin sq Visit type - Emergency Visit Emergency Visit: Yes ED Registration Date: 07/02/18 Care time: The patient presented to the Emergency Department on the above date and was hospitalized for further evaluation of their emergent condition. - New Patient This patient is new to me today: Yes Date on this admission: 07/03/18 - Critical Care Critical Care patient: No
--- NOTE | 2018-07-03 13:31 | CONS ---
DATE OF CONSULTATION: DATE OF DICTATION: 07/03/2018 HISTORY: A 57-year-old female evaluated for positive blood culture. History was obtained from the chart. She does not give a reliable history. She was admitted to the hospital on July 01, 2018, with a several-day history of generalized weakness, increased lethargy, and altered mentation. She was found to have a blood sugar of 590. She was treated for hyperglycemia. Her course was complicated by elevated white blood cell count, low-grade fever, and now seizure activity. Lab reports: Blood cultures done on admission are positive for gram-positive cocci in clusters in 1 anaerobic bottle. PHYSICAL EXAMINATION: General: She is awake and alert. She offers no complaint. Vital Signs: Temperature 98.0, T-max 100.1. Blood pressure 117/73, pulse 96, regular. Respiration 20 per minute. HEENT: Sclerae are anicteric. No conjunctival hemorrhages. Oropharynx negative. Neck: Supple. No palpable nodes. Cardiovascular: Heart sounds S1, S2. No murmur. Lungs: Clear. Abdomen: Soft and nontender. Extremities: Negative for edema. There are several small macular lesions less than 1 cm in diameter present on the upper extremities bilaterally as well as the proximal right thigh. No evidence of infected skin wounds or infected diabetic foot ulcers. LABORATORY DATA: White count 20.1, 82 neutrophils, 13 lymphocytes, 6 monocytes. Hematocrit 30.9, platelets 347. BUN 22, creatinine 1.0. Urinalysis negative white cells. Chest x-ray negative for acute infiltrate. IMPRESSION: 1. Positive blood culture gram-positive cocci in clusters, unclear significance. 2. Uncontrolled diabetes mellitus. 3. Status post seizure activity. 4. Leukocytosis. Significance of positive blood culture not clear. No obvious identifiable source for staphylococcus bacteremia. Will repeat cultures and start vancomycin pending results. Thank you for the kind referral. JARAD COPELAND M.D. [id number]
--- NOTE | 2018-07-03 14:38 | PN ---
Teaching Attending Note Name of Resident: Maria Dolores Ram ATTENDING PHYSICIAN STATEMENT I saw and evaluated the patient. I reviewed the resident's note and discussed the case with the resident. I agree with the resident's findings and plan as documented. SUBJECTIVE: unable to obtain hx due to confusion. per resident who evaluate dher yesterday, she is more awake, and alert today OBJECTIVE: NAD, awake, alert, knows her age, and name but not location. CV: RRR, no MRG Lungs: CTAB Ext : no edema Neuro: limited. flattening of L nasolabial fold. round equal pupils, reactive to light. moving all her extremities. no rigidity . 1+ knee jerk and 1+ biceps b /l. ASSESSMENT AND PLAN: 57 y/o lady with h/o DM II who presented with confusion and generalized weakness, and recurrent seizures in ER 1- New onset seizures: No recurrence - cont keppra 750 BID - cause is unknown, ? stroke as has LL facial droop. - MRI pending read - appreciate neuro input 2- Hypernatremia: due to dehydration. - change IVF to 1/2 Ns - repeat na at 6 pm 3- + blood Cx with G+ cocci with leukocytosis. - vanco x 1 - Id consult 4- DM : Levemir and SSI 5- Hyperkalemia and hypercalcemia: improved /resolved DVT px : heaprin SQ
[2018-07-03 18:50] LABS: COCAINE, UR NEGATIVE ng/ml (CUTOFF=300); METHADONE, UR NEGATIVE ng/ml (CUTOFF=300); OPIATES, URI NEGATIVE ng/ml (CUTOFF=300); PHENCYCLIDINE,URINE NEGATIVE ng/ml (CUTOFF=25); URINE AMPHETAMINES NEGATIVE ng/ml (CUTOFF=500); URINE BARBITURATES NEGATIVE ng/ml (CUTOFF=200); URINE BENZODIAZEPINES NEGATIVE ng/ml (CUTOFF=200)
[2018-07-03] MEDS: VANCOMYCIN 1 GM PREMIX - 1 GM/200 ML BAG IVPB SCH (21:23)
[2018-07-04] MEDS: HEPARIN NA (PORCINE) 5,000 UNITS/ML 1ML VIAL SQ SCH ×3 (05:13→22:25)
[2018-07-04] MEDS: INSULIN SLIDING SCALE (NOVOLOG) 1 VIAL SQ SCH ×4 (06:02→22:26)
[2018-07-04 07:35] LABS: HEMATOCRIT 30.1 % (32.4-45.2); MCH 27.9 pg (25.7-33.7); MCHC 33.1 g/dl (32.0-36.0); MEAN CELL VOLUME 84.2 fl (80-96); MEAN PLT VOLUME 8.9 fl (7.5-11.1); PLATELET COUNT 281 K/MM3 (134-434); RBC 3.57 M/mm3 (3.60-5.2); RDW 14.7 % (11.6-15.6)
[2018-07-04 08:36] LABS: ALBUMIN 2.6 g/dl (3.4-5.0); ALK PHOS 63 U/L (45-117); ANION GAP 10 MMOL/L (8-16); BILIRUBIN,TOTAL 0.4 mg/dL (0.2-1); BLOOD UREA NITROGEN 12 mg/dL (7-18); CALCIUM 8.5 mg/dL (8.5-10.1); CHLORIDE 112 mmol/L (98-107); CO2 21 mmol/L (21-32); CREATININE 0.7 mg/dL (0.55-1.3); GLUCOSE,RANDOM 206 mg/dL (74-106); POTASSIUM 3.5 mmol/L (3.5-5.1); SGOT/AST 15 U/L (15-37); SGPT/ALT 13 U/L (13-61); SODIUM 143 mmol/L (136-145); TOT PROT 5.4 g/dl (6.4-8.2)
[2018-07-04] MEDS: VANCOMYCIN 1 GM PREMIX - 1 GM/200 ML BAG IVPB SCH ×2 (10:06→21:15)
--- NOTE | 2018-07-04 11:58 | PN ---
Progress Note (short form) - Note Progress Note: Neurology CHIEF COMPLAINT: Generalized Weakness HISTORY OF PRESENT ILLNESS: 57 y/o lady with a significant past medical history of IDDM who presented to [facility] due to a 5 day history of generalized weakness and altered mental status. Per son via phone, pt has not been herself for the past 5 days. Son denied any recent infections or changes in lifestyle in pt. Endorsed pt is compliant with her DM medications but glucose on presentation was 590, noted to be without anion gap. Only significant event son states is that pt had her molar teeth removed 2 weeks ago. Furthermore, son denied any recent infections or lifestyle changes. Endorsed that pt was treated at our hospital approximately 1 year ago for the same symptoms which were attributed to her Diabetes. Of note, elevated WBC to 14.5. CT head completed and without acute changes. Patient is awake, alert, not minimally communicative. Seen at bedside with nurse, last BGM in 300's. Concern for patient's recurrent seizures, reportedly 3 events day of presentation to ER. She was put on Keppra 500mg twice daily, advised increased to 750mg twice daily. Requires ongoing tighter glycemic control as metabolic disturbance likely precipitating seizure events. Mental status much improved, sitting and eating her breakfast, communicative and without abnormal motor activity. Active Medications Heparin Sodium (Porcine) (Heparin -) 5,000 unit SQ TID [facility] Last Admin: 07/04/18 05:13 Dose: 5,000 unit Vancomycin HCl (Vancomycin 1 Gm Premix -) 1 gm in 200 mls @ 133.333 mls/hr IVPB Q12H [facility]; Protocol Last Admin: 07/04/18 10:06 Dose: 133.333 mls/hr Sodium Chloride (Normal Saline -) 1,000 mls @ 83 mls/hr IV [facility] Last Admin: 07/03/18 21:23 Dose: 83 mls/hr Insulin Aspart (Novolog Vial Sliding Scale -) 1 vial SQ ACHS [facility]; Protocol Last Admin: 07/04/18 06:02 Dose: 2 units Insulin Detemir (Levemir Vial) 25 units SQ DAILY [facility] Last Admin: 07/03/18 12:29 Dose: Not Given Levetiracetam (Keppra Injection -) 750 mg IVPB BID [facility] Last Admin: 07/03/18 21:23 Dose: 750 mg Lorazepam (Ativan Injection -) 1 mg IVPUSH Q6H PRN PRN Reason: seizure PHYSICAL EXAMINATION Vital Signs Temperature 98.2 F 07/04/18 11:00 Pulse Rate 99 H 07/04/18 11:00 Respiratory Rate 18 07/04/18 11:00 Blood Pressure 128/60 07/04/18 11:00 O2 Sat by Pulse Oximetry (%) 97 07/04/18 09:00 GENERAL: AAOx2 HEAD: Atraumatic/Normocephalic EYES: EOMI Sclera Clear EARS, NOSE, THROAT:MMM NECK: Supple No JVD appreciated LUNGS: CTAB HEART: RRR Nl S1S2 ABDOMEN: Soft NDNT LOWER EXTREMITIES: No Onychomycosis No pitting edema NEUROLOGICAL: Cranial nerves II-XII intact. Arousable but not communicative, moves extremities grossly, sensory intact SKIN: No rashes or lesions appreciated CBCD WBC 11.0 K/mm3 (4.0-10.0) H 07/04/18 05:30 RBC 3.57 M/mm3 (3.60-5.2) L 07/04/18 05:30 Hgb 10.0 GM/dL (10.7-15.3) L 07/04/18 05:30 Hct 30.1 % (32.4-45.2) L 07/04/18 05:30 MCV 84.2 fl (80-96) 07/04/18 05:30 MCHC 33.1 g/dl (32.0-36.0) 07/04/18 05:30 RDW 14.7 % (11.6-15.6) 07/04/18 05:30 Plt Count 281 K/MM3 (134-434) 07/04/18 05:30 MPV 8.9 fl (7.5-11.1) 07/04/18 05:30 CMP Sodium 143 mmol/L (136-145) 07/04/18 05:30 Potassium 3.5 mmol/L (3.5-5.1) 07/04/18 05:30 Chloride 112 mmol/L (98-107) H 07/04/18 05:30 Carbon Dioxide 21 mmol/L (21-32) 07/04/18 05:30 Anion Gap 10 MMOL/L (8-16) 07/04/18 05:30 BUN 12 mg/dL (7-18) 07/04/18 05:30 Creatinine 0.7 mg/dL (0.55-1.3) 07/04/18 05:30 Creat Clearance w eGFR 85.65 (>60) 07/04/18 05:30 Random Glucose 206 mg/dL (74-106) H 07/04/18 05:30 Calcium 8.5 mg/dL (8.5-10.1) 07/04/18 05:30 Total Bilirubin 0.4 mg/dL (0.2-1) 07/04/18 05:30 AST 15 U/L (15-37) 07/04/18 05:30 ALT 13 U/L (13-61) 07/04/18 05:30 Alkaline Phosphatase 63 U/L (45-117) 07/04/18 05:30 Total Protein 5.4 g/dl (6.4-8.2) L 07/04/18 05:30 Albumin 2.6 g/dl (3.4-5.0) L 07/04/18 05:30 CARDIAC ENZYMES Creatine Kinase 80 U/L (26-192) 07/01/18 17:52 Troponin I < 0.02 ng/ml (0.00-0.05) 07/01/18 17:52 ASSESSMENT/PLAN: 57 y/o lady with a significant past medical history of IDDM who presented to [facility] due to a 5 day history of generalized weakness and altered mental status. Per son via phone, pt has not been herself for the past 5 days. Son denied any recent infections or changes in lifestyle in pt. Endorsed pt is compliant with her DM medications but glucose on presentation was 590, noted to be without anion gap. Only significant event son states is that pt had her molar teeth removed 2 weeks ago. Furthermore, son denied any recent infections or lifestyle changes. Endorsed that pt was treated at our hospital approximately 1 year ago for the same symptoms which were attributed to her Diabetes. Of note, elevated WBC to 14.5. T head completed and without acute changes. Patient is awake, alert, not minimally communicative. Seen at bedside with nurse, last BGM in 300's. Concern for patient's recurrent seizures, reportedly 3 events day of presentation to ER. She was put on Keppra 500mg twice daily, advised increased to 750mg twice daily. Has not had seizure recurrence overnight and stable during my evaluation with increased to mental status and communication. Requires ongoing tighter glycemic control as metabolic disturbance likely precipitating seizure events. EEG not likely to be completed over weekend, clinically improved. Can give Ativan PRN for seizure events, no more than 8mg in 24hrs but has improved. Continue monitoring for seizures. If subsequent events, can further increase Keppra to 1000mg twice daily. Insulin sliding scale, adequate hydration, monitor BGMs, maintain tight glycemic control. DVT ppx. Much improved mental status and neurologically.
[2018-07-04] MEDS: levETIRAcetam 500 MG/5 ML INJECTION VIAL IVPB SCH ×2 (12:09→22:27)
[2018-07-04] MEDS: INSULIN (LEVEMIR) 100 UNITS/ML UNITS SQ SCH (12:26)
--- NOTE | 2018-07-04 16:28 | PN ---
Physical Exam: SUBJECTIVE: Patient seen and examined. She is awake and alert. She does not recall what happened. As per her son, she has been having difficulty remembering past events for more than a week. OBJECTIVE: Vital Signs Period Temp Pulse Resp BP Sys/Baxter Pulse Ox Last 24 Hr 97.8 F-98.4 F 85-99 18-20 114-149/60-82 96-97 GENERAL: The patient is awake, alert, and fully oriented, in no acute distress. LUNGS: Breath sounds equal, clear to auscultation bilaterally, no wheezes, no crackles, no accessory muscle use. HEART: Regular rate and rhythm, S1, S2 without murmur, rub or gallop. ABDOMEN: Soft, nontender, nondistended, normoactive bowel sounds, no guarding, no rebound, no hepatosplenomegaly, no masses. EXTREMITIES: 2+ pulses, warm, well-perfused, no edema. Laboratory Results - last 24 hr 07/03/18 07/03/18 07/03/18 16:05 17:34 17:35 WBC RBC Hgb Hct MCV MCH MCHC RDW Plt Count MPV Sodium 146 H Potassium Chloride Carbon Dioxide Anion Gap BUN Creatinine Creat Clearance w eGFR POC Glucometer 119 Random Glucose Calcium Total Bilirubin AST ALT Alkaline Phosphatase Total Protein Albumin Opiates Screen Negative Methadone Screen Negative Barbiturate Screen Negative Phencyclidine Screen Negative Ur Amphetamines Screen Negative MDMA (Ecstasy) Screen Negative Benzodiazepines Screen Negative Cocaine Screen Negative U Marijuana (THC) Screen Negative 07/03/18 07/04/18 07/04/18 21:19 01:50 05:08 WBC RBC Hgb Hct MCV MCH MCHC RDW Plt Count MPV Sodium 141 Potassium Chloride Carbon Dioxide Anion Gap BUN Creatinine Creat Clearance w eGFR POC Glucometer 185 191 Random Glucose Calcium Total Bilirubin AST ALT Alkaline Phosphatase Total Protein Albumin Opiates Screen Methadone Screen Barbiturate Screen Phencyclidine Screen Ur Amphetamines Screen MDMA (Ecstasy) Screen Benzodiazepines Screen Cocaine Screen U Marijuana (THC) Screen 07/04/18 07/04/18 07/04/18 05:30 05:30 09:36 WBC 11.0 H RBC 3.57 L Hgb 10.0 L Hct 30.1 L MCV 84.2 MCH 27.9 MCHC 33.1 RDW 14.7 Plt Count 281 MPV 8.9 Sodium 143 Potassium 3.5 Chloride 112 H Carbon Dioxide 21 Anion Gap 10 BUN 12 Creatinine 0.7 Creat Clearance w eGFR 85.65 POC Glucometer 162 Random Glucose 206 H Calcium 8.5 Total Bilirubin 0.4 AST 15 ALT 13 Alkaline Phosphatase 63 Total Protein 5.4 L Albumin 2.6 L Opiates Screen Methadone Screen Barbiturate Screen Phencyclidine Screen Ur Amphetamines Screen MDMA (Ecstasy) Screen Benzodiazepines Screen Cocaine Screen U Marijuana (THC) Screen 07/04/18 12:02 WBC RBC Hgb Hct MCV MCH MCHC RDW Plt Count MPV Sodium Potassium Chloride Carbon Dioxide Anion Gap BUN Creatinine Creat Clearance w eGFR POC Glucometer 365 Random Glucose Calcium Total Bilirubin AST ALT Alkaline Phosphatase Total Protein Albumin Opiates Screen Methadone Screen Barbiturate Screen Phencyclidine Screen Ur Amphetamines Screen MDMA (Ecstasy) Screen Benzodiazepines Screen Cocaine Screen U Marijuana (THC) Screen Active Medications Generic Name Dose Route Start Last Admin Trade Name Freq PRN Reason Stop Dose Admin Heparin Sodium (Porcine) 5,000 unit 07/02/18 06:00 07/04/18 15:02 Heparin - SQ 5,000 unit TID ISAURA Administration Vancomycin HCl 1 gm in 200 mls @ 133.333 mls/hr 07/03/18 21:00 07/04/18 10:06 Vancomycin 1 Gm Premix - IVPB 133.333 mls/hr Q12H ISAURA Administration Protocol Sodium Chloride 1,000 mls @ 83 mls/hr 07/03/18 19:30 07/03/18 21:23 Normal Saline - IV 83 mls/hr ASDIR ISAURA Administration Insulin Aspart 1 vial 07/02/18 07:00 07/04/18 12:08 Novolog Vial Sliding Scale - SQ 10 units ACHS ISAURA Administration Protocol Insulin Detemir 25 units 07/02/18 10:00 07/04/18 12:26 Levemir Vial SQ Not Given DAILY REPLACED BY [facility] Levetiracetam 750 mg 07/02/18 12:00 07/04/18 12:09 Keppra Injection - IVPB 750 mg BID ISAURA Administration Lorazepam 1 mg 07/02/18 06:46 Ativan Injection - IVPUSH Q6H PRN seizure ASSESSMENT/PLAN: This is a 57 year old woman with a history of type 2 DM who presented to the ED with generalized weakness and confusion. 1. Seizures, new-onset - Head CT uremarkable - ? secondary to uncontrolled diabetes - Continue Keppra - Urine drug screen negative - MRI of brain shows generalized volume loss, few foci of small vessel infarction in periventricular white matter - EEG ordered 2. Acute metabolic encephalopathy - Improving - Secondary to hyperglycemia, post-ictal 3. Lactic acidemia - Likely secondary to seizures 4. Leukocytosis - Likely reactive 5. (+) Coagulase negative Staph in 1 of 2 blood cultures - Likely contaminant - On vancomycin empirically 6. Type 2 DM, uncontrolled - HbA1c 12.5 - Family reports she is compliant with her insulin regimen - Continue Levemir, Novolog sliding scale - control is improving 7. Stage 3 CKD - Stable 8. Hyperkalemia - Improved 9. Hypercalcemia - Improved 10. DVT prophylaxis - On heparin subq Visit type - Emergency Visit Emergency Visit: Yes ED Registration Date: 07/02/18 Care time: The patient presented to the Emergency Department on the above date and was hospitalized for further evaluation of their emergent condition. - New Patient This patient is new to me today: No - Critical Care Critical Care patient: No - Discharge Referral Referred to [facility] Med P.C[facility] No
[2018-07-04] MEDS: SODIUM CHLORIDE 1,000 ML IV SCH (21:16)
[2018-07-04] MEDS ORDERED: INSULIN (LEVEMIR) 100 UNITS/ML UNITS SQ SCH (22:00)
[2018-07-05] MEDS: INSULIN SLIDING SCALE (NOVOLOG) 1 VIAL SQ SCH ×2 (06:07→12:03)
[2018-07-05 06:38] LABS: BASO % 0.7 % (0-2.0); EOS % 1.6 % (0-4.5); HEMATOCRIT 25.4 % (32.4-45.2); HEMOGLOBIN 8.6 GM/dL (10.7-15.3); LYMPH % 29.5 % (8-40); MCH 28.1 pg (25.7-33.7); MEAN CELL VOLUME 82.6 fl (80-96); MEAN PLT VOLUME 8.2 fl (7.5-11.1); MONO % 7.6 % (3.8-10.2); NEUT % 60.6 % (42.8-82.8); PLATELET COUNT 249 K/MM3 (134-434); RBC 3.08 M/mm3 (3.60-5.2); RDW 14.7 % (11.6-15.6); WHITE BLOOD COUNT 7.4 K/mm3 (4.0-10.0)
[2018-07-05] MEDS: HEPARIN NA (PORCINE) 5,000 UNITS/ML 1ML VIAL SQ SCH ×2 (06:39→14:24)
[2018-07-05 07:04] LABS: ANION GAP 6 MMOL/L (8-16); BLOOD UREA NITROGEN 19 mg/dL (7-18); CALCIUM 8.3 mg/dL (8.5-10.1); CHLORIDE 116 mmol/L (98-107); CO2 25 mmol/L (21-32); GLUCOSE,RANDOM 111 mg/dL (74-106); POTASSIUM 3.6 mmol/L (3.5-5.1); SODIUM 146 mmol/L (136-145)
--- NOTE | 2018-07-05 09:07 | PN ---
Progress Note (short form) - Note Progress Note: Neurology CHIEF COMPLAINT: Generalized Weakness HISTORY OF PRESENT ILLNESS: 57 y/o lady with a significant past medical history of IDDM who presented to [facility] due to a 5 day history of generalized weakness and altered mental status. Per son via phone, pt has not been herself for the past 5 days. Son denied any recent infections or changes in lifestyle in pt. Endorsed pt is compliant with her DM medications but glucose on presentation was 590, noted to be without anion gap. Only significant event son states is that pt had her molar teeth removed 2 weeks ago. Furthermore, son denied any recent infections or lifestyle changes. Endorsed that pt was treated at our hospital approximately 1 year ago for the same symptoms which were attributed to her Diabetes. Of note, elevated WBC to 14.5. CT head completed and without acute changes. Patient is awake, alert, not minimally communicative. Seen at bedside with nurse, last BGM in 300's. Concern for patient's recurrent seizures, reportedly 3 events day of presentation to ER. She was put on Keppra 500mg twice daily, advised increased to 750mg twice daily. Requires ongoing tighter glycemic control as metabolic disturbance likely precipitating seizure events. Mental status much improved, sitting and eating her breakfast, communicative and without abnormal motor activity. Remains neurologically stable. Today asking about discharge. Remains on Keppra 750mg twice daily. Would continue this until outpatient follow up. Active Medications Heparin Sodium (Porcine) (Heparin -) 5,000 unit SQ TID ISAURA Last Admin: 07/05/18 06:39 Dose: 5,000 unit Vancomycin HCl (Vancomycin 1 Gm Premix -) 1 gm in 200 mls @ 133.333 mls/hr IVPB Q12H ISAURA; Protocol Last Admin: 07/04/18 21:15 Dose: 133.333 mls/hr Sodium Chloride (Normal Saline -) 1,000 mls @ 83 mls/hr IV ASDIR ISAURA Last Admin: 07/04/18 21:16 Dose: 83 mls/hr Insulin Aspart (Novolog Vial Sliding Scale -) 1 vial SQ ACHS ISAURA; Protocol Last Admin: 07/05/18 06:07 Dose: Not Given Insulin Detemir (Levemir Vial) 25 units SQ HS ISAURA Last Admin: 07/04/18 22:26 Dose: 25 units Levetiracetam (Keppra Injection -) 750 mg IVPB BID ISAURA Last Admin: 07/04/18 22:27 Dose: 750 mg Lorazepam (Ativan Injection -) 1 mg IVPUSH Q6H PRN PRN Reason: seizure PHYSICAL EXAMINATION Vital Signs Period Temp Pulse Resp BP Sys/Baxter Pulse Ox Last 24 Hr 98.2 F-98.3 F 81-99 18-20 90-149/52-76 100 GENERAL: AAOx2 HEAD: Atraumatic/Normocephalic EYES: EOMI Sclera Clear EARS, NOSE, THROAT:MMM NECK: Supple No JVD appreciated LUNGS: CTAB HEART: RRR Nl S1S2 ABDOMEN: Soft NDNT LOWER EXTREMITIES: No Onychomycosis No pitting edema NEUROLOGICAL: Cranial nerves II-XII intact. Arousable but not communicative, moves extremities grossly, sensory intact SKIN: No rashes or lesions appreciated CBCD WBC 7.4 K/mm3 (4.0-10.0) 07/05/18 05:30 RBC 3.08 M/mm3 (3.60-5.2) L 07/05/18 05:30 Hgb 8.6 GM/dL (10.7-15.3) L 07/05/18 05:30 Hct 25.4 % (32.4-45.2) L D 07/05/18 05:30 MCV 82.6 fl (80-96) 07/05/18 05:30 MCHC 34.0 g/dl (32.0-36.0) 07/05/18 05:30 RDW 14.7 % (11.6-15.6) 07/05/18 05:30 Plt Count 249 K/MM3 (134-434) 07/05/18 05:30 MPV 8.2 fl (7.5-11.1) 07/05/18 05:30 CMP Sodium 146 mmol/L (136-145) H 07/05/18 05:30 Potassium 3.6 mmol/L (3.5-5.1) 07/05/18 05:30 Chloride 116 mmol/L (98-107) H 07/05/18 05:30 Carbon Dioxide 25 mmol/L (21-32) 07/05/18 05:30 Anion Gap 6 MMOL/L (8-16) L 07/05/18 05:30 BUN 19 mg/dL (7-18) H 07/05/18 05:30 Creatinine 1.0 mg/dL (0.55-1.3) 07/05/18 05:30 Creat Clearance w eGFR 56.75 (>60) 07/05/18 05:30 Random Glucose 111 mg/dL (74-106) H 07/05/18 05:30 Calcium 8.3 mg/dL (8.5-10.1) L 07/05/18 05:30 Total Bilirubin 0.4 mg/dL (0.2-1) 07/04/18 05:30 AST 15 U/L (15-37) 07/04/18 05:30 ALT 13 U/L (13-61) 07/04/18 05:30 Alkaline Phosphatase 63 U/L (45-117) 07/04/18 05:30 Total Protein 5.4 g/dl (6.4-8.2) L 07/04/18 05:30 Albumin 2.6 g/dl (3.4-5.0) L 07/04/18 05:30 CARDIAC ENZYMES Creatine Kinase 80 U/L (26-192) 07/01/18 17:52 Troponin I < 0.02 ng/ml (0.00-0.05) 07/01/18 17:52 ASSESSMENT/PLAN: 57 y/o lady with a significant past medical history of IDDM who presented to [facility] due to a 5 day history of generalized weakness and altered mental status. Per son via phone, pt has not been herself for the past 5 days. Son denied any recent infections or changes in lifestyle in pt. Endorsed pt is compliant with her DM medications but glucose on presentation was 590, noted to be without anion gap. Only significant event son states is that pt had her molar teeth removed 2 weeks ago. Furthermore, son denied any recent infections or lifestyle changes. Endorsed that pt was treated at our hospital approximately 1 year ago for the same symptoms which were attributed to her Diabetes. Of note, elevated WBC to 14.5. T head completed and without acute changes. Patient is awake, alert, not minimally communicative. Seen at bedside with nurse, last BGM in 300's. Concern for patient's recurrent seizures, reportedly 3 events day of presentation to ER. She was put on Keppra 500mg twice daily, advised increased to 750mg twice daily. Has not had seizure recurrence overnight and stable during my evaluation with increased to mental status and communication. Requires ongoing tighter glycemic control as metabolic disturbance likely precipitating seizure events. EEG not likely to be completed over weekend, clinically improved. Can give Ativan PRN for seizure events, no more than 8mg in 24hrs but has improved. Continue monitoring for seizures. If subsequent events, can further increase Keppra to 1000mg twice daily. Insulin sliding scale, adequate hydration, monitor BGMs, maintain tight glycemic control. DVT ppx. Much improved mental status and neurologically. Remains on Keppra 750mg twice daily. Would continue this until outpatient follow up. Discharge planning per primary.
[2018-07-05] MEDS ORDERED: PT OWN MED DRAWER 7, Y5N ONE (09:37)
[2018-07-05] MEDS: levETIRAcetam 500 MG/5 ML INJECTION VIAL IVPB SCH (09:53)
--- NOTE | 2018-07-05 11:39 | PN ---
Teaching Attending Note Name of Resident: Flaquita Herrera ATTENDING PHYSICIAN STATEMENT I saw and evaluated the patient. I reviewed the resident's note and discussed the case with the resident. I agree with the resident's findings and plan as documented. SUBJECTIVE: no feve ror chills, feels close to normal, feels like her memory is slightly affected. but no BOWMAN, weakness or tingling. denies Cp and SOB OBJECTIVE: NAD, awake, alert, knows her age, location , year, and president CV: RRR, no MRG Lungs: CTAB Ext: no edema Neuro: limited. flattening of L nasolabial fold. round equal pupils, reactive to light. strength 5/5 in uppe rand lower extremities proximally and distally. sensation to ligiht touch is NL. 1+ knee jerk and 2+ biceps b/l. ASSESSMENT AND PLAN: 57 y/o lady with h/o DM II who presented with confusion and generalized weakness, and recurrent seizures in ER 1- New onset seizures: No recurrence - cont keppra 750 BID - She was instructed to not drive any vehicle until cleared by neuro as out pt - MRI and CUS reviewed. -f/u with neuro - acute metabolic encephalopathy much improved. Expect memory to improve a well 2- Hypernatremia: due to dehydration. - improved. dc IVF and encourage po hydration 3-+ blood cx fro Coag neg staph . repeat cx neg to date - will ask Id if Abx are still needed . 4- DM : Cont Levemir and SSI . at dc will cont metformin and dc januvia and glipizide and cont current insulin regimen DVT px : heaprin SQ dispo : if No more need for IV abx, then can dc home. ambulating normal in hallway) witnessed by residents )
[2018-07-05] MEDS: VANCOMYCIN 1 GM PREMIX - 1 GM/200 ML BAG IVPB SCH (14:07)
--- NOTE | 2018-07-05 14:44 | DS ---
Physical Exam: SUBJECTIVE: Patient seen and examined this AM. No repeat seizure activity since admission. Continues to have some difficulty with recalling words, Otherwise no new complaints. No acute overnight events as per nursing. OBJECTIVE: Vital Signs Period Temp Pulse Resp BP Sys/Baxter Pulse Ox Last 24 Hr 98.1 F-98.3 F 81-93 20-20 90-130/52-76 100-100 PHYSICAL EXAM GENERAL: NAD, A&Ox3 HEAD: NCAT EYES: PERRL, EOMI ENT: Moist mucous membranes NECK: Supple LUNGS: Clear to auscultation bilaterally, no wheezes, no crackles HEART: Regular rate and rhythm, S1, S2 without murmur ABDOMEN: Soft, nontender, nondistended, + bowel sounds EXTREMITIES: no edema NEUROLOGICAL: Gross sensation intact throughout. 5/5 Muscle strength globally. Speech improving SKIN: Warm, dry LABS Laboratory Last Values WBC 7.4 K/mm3 (4.0-10.0) 07/05/18 05:30 RBC 3.08 M/mm3 (3.60-5.2) L 07/05/18 05:30 Hgb 8.6 GM/dL (10.7-15.3) L 07/05/18 05:30 Hct 25.4 % (32.4-45.2) L D 07/05/18 05:30 MCV 82.6 fl (80-96) 07/05/18 05:30 MCH 28.1 pg (25.7-33.7) 07/05/18 05:30 MCHC 34.0 g/dl (32.0-36.0) 07/05/18 05:30 RDW 14.7 % (11.6-15.6) 07/05/18 05:30 Plt Count 249 K/MM3 (134-434) 07/05/18 05:30 MPV 8.2 fl (7.5-11.1) 07/05/18 05:30 Absolute Neuts (auto) 4.5 K/mm3 (1.5-8.0) 07/05/18 05:30 Neutrophils % 60.6 % (42.8-82.8) D 07/05/18 05:30 Neutrophils % (Manual) 82.0 % (42.8-82.8) 07/03/18 05:30 Band Neutrophils % 0.0 % 07/03/18 05:30 Lymphocytes % 29.5 % (8-40) D 07/05/18 05:30 Lymphocytes % (Manual) 11.0 % (8-40) D 07/03/18 05:30 Monocytes % 7.6 % (3.8-10.2) 07/05/18 05:30 Monocytes % (Manual) 3 % (3.8-10.2) L 07/03/18 05:30 Eosinophils % 1.6 % (0-4.5) D 07/05/18 05:30 Eosinophils % (Manual) 0.0 % (0-4.5) 07/03/18 05:30 Basophils % 0.7 % (0-2.0) 07/05/18 05:30 Basophils % (Manual) 2.0 % (0-2.0) 07/03/18 05:30 Myelocytes % (Man) 1 % (0-2) 07/03/18 05:30 Promyelocytes % (Man) 0 % (0-2) 07/03/18 05:30 Blast Cells % (Manual) 0 % (0-0) 07/03/18 05:30 Nucleated RBC % 0 % (0-0) 07/05/18 05:30 Metamyelocytes 1 % (0-2) 07/03/18 05:30 Hypochromia 0 07/03/18 05:30 Platelet Estimate Normal 07/03/18 05:30 Platelet Comment No clumping noted 07/01/18 17:52 Polychromasia 0 07/03/18 05:30 Poikilocytosis 0 07/03/18 05:30 Anisocytosis 1+ 07/03/18 05:30 Microcytosis 1+ 07/03/18 05:30 Macrocytosis 0 07/03/18 05:30 Ovalocytes 1+ 07/01/18 17:52 ESR 30 mm/hr (0-30) 07/02/18 07:00 PT with INR 12.00 SEC (9.7-13.0) 07/02/18 07:00 INR 1.02 (0.83-1.09) 07/02/18 07:00 PTT (Actin FS) 27.3 SECONDS (25.2-36.5) 07/02/18 07:00 VBG pH 7.36 (7.31-7.41) 07/01/18 23:10 POC VBG pCO2 43.9 mmHg (41-51) 07/01/18 23:10 POC VBG pO2 23.3 mmHg (30-40) L 07/01/18 23:10 VBG HCO3 23.9 mmol/L (23-29) 07/01/18 23:10 VBG O2 Sat (Eloy) 39.5 % (70-80) L 07/01/18 23:10 VBG Base Excess -1.1 meq/l (-2-2) 07/01/18 23:10 Sodium 146 mmol/L (136-145) H 07/05/18 05:30 Potassium 3.6 mmol/L (3.5-5.1) 07/05/18 05:30 Chloride 116 mmol/L (98-107) H 07/05/18 05:30 Carbon Dioxide 25 mmol/L (21-32) 07/05/18 05:30 Anion Gap 6 MMOL/L (8-16) L 07/05/18 05:30 BUN 19 mg/dL (7-18) H 07/05/18 05:30 Creatinine 1.0 mg/dL (0.55-1.3) 07/05/18 05:30 Creat Clearance w eGFR 56.75 (>60) 07/05/18 05:30 POC Glucometer 206 UNITS (80-120) 07/05/18 11:40 Random Glucose 111 mg/dL (74-106) H 07/05/18 05:30 Hemoglobin A1c % 12.5 % (4.2-6.3) H 07/02/18 07:00 Lactic Acid 2.2 mmol/L (0.4-2.0) H* 07/02/18 08:35 Calcium 8.3 mg/dL (8.5-10.1) L 07/05/18 05:30 Phosphorus 2.7 mg/dL (2.5-4.9) 07/03/18 05:30 Magnesium 2.5 mg/dL (1.8-2.4) H 07/03/18 05:30 Total Bilirubin 0.4 mg/dL (0.2-1) 07/04/18 05:30 AST 15 U/L (15-37) 07/04/18 05:30 ALT 13 U/L (13-61) 07/04/18 05:30 Alkaline Phosphatase 63 U/L (45-117) 07/04/18 05:30 Creatine Kinase 80 U/L (26-192) 07/01/18 17:52 Troponin I < 0.02 ng/ml (0.00-0.05) 07/01/18 17:52 C-Reactive Protein < 0.3 MG/DL (0.00-0.3) 07/02/18 07:00 Total Protein 5.4 g/dl (6.4-8.2) L 07/04/18 05:30 Albumin 2.6 g/dl (3.4-5.0) L 07/04/18 05:30 Vitamin B12 2471 pg/ml (193-986) H 07/02/18 07:00 TSH 0.85 uIU/ml (0.358-3.74) 07/02/18 07:00 Prolactin 11.2 ng/ml (4.8-23.3) 07/02/18 08:35 PTH Intact 31 pg/mL (15-65) 07/02/18 07:00 Urine Color Yellow 07/01/18 19:54 Urine Appearance Clear 07/01/18 19:54 Urine pH 5.0 (5.0-8.0) 07/01/18 19:54 Ur Specific Gerton 1.024 (1.010-1.035) 07/01/18 19:54 Urine Protein 1+ (NEGATIVE) H 07/01/18 19:54 Urine Glucose (UA) 3+ (NEGATIVE) H 07/01/18 19:54 Urine Ketones 1+ (NEGATIVE) H 07/01/18 19:54 Urine Blood Trace (NEGATIVE) 07/01/18 19:54 Urine Nitrite Negative (NEGATIVE) 07/01/18 19:54 Urine Bilirubin Negative (NEGATIVE) 07/01/18 19:54 Urine Urobilinogen 0.2 mg/dL (0.2-1.0) 07/01/18 19:54 Ur Leukocyte Esterase Negative (NEGATIVE) 07/01/18 19:54 Urine WBC (Auto) 0 /hpf (0-5) 07/01/18 19:54 Urine RBC (Auto) 0 /hpf (0-4) 07/01/18 19:54 Urine Casts (Auto) 0 /lpf (0-8) 07/01/18 19:54 U Epithel Cells (Auto) 0.3 /HPF (0-5/HPF) 07/01/18 19:54 Urine Bacteria (Auto) 2.4 /hpf (NEGATIVE) 07/01/18 19:54 Opiates Screen Negative ng/ml (FPVFKI=001) 07/03/18 16:05 Methadone Screen Negative ng/ml (BFNVFH=987) 07/03/18 16:05 Barbiturate Screen Negative ng/ml (LWUOUP=532) 07/03/18 16:05 Phencyclidine Screen Negative ng/ml (CUTOFF=25) 07/03/18 16:05 Ur Amphetamines Screen Negative ng/ml (IMMPYJ=858) 07/03/18 16:05 MDMA (Ecstasy) Screen Negative ng/ml (TFSDQW=137) 07/03/18 16:05 Benzodiazepines Screen Negative ng/ml (XDKYKK=107) 07/03/18 16:05 Cocaine Screen Negative ng/ml (WTADNY=151) 07/03/18 16:05 U Marijuana (THC) Screen Negative ng/ml (CUTOFF=50) 07/03/18 16:05 Acetone, Qual Positive moderate 2+ (NEGATIVE) H 07/01/18 23:10 RPR Titer Nonreactive (NONREACTIVE) 07/02/18 07:00 HCV Quantitation Hcv not detected IU/mL (.) 07/02/18 07:00 HCV RNA log copies/mL TNP 07/02/18 07:00 HIV Genotype Non reactive (Non Reactive) 07/02/18 07:00 Influenza A (Rapid) Negative 07/02/18 03:24 Influenza B (Rapid) Negative 07/02/18 03:24 Microbiology 07/03/18 13:05 Blood - Peripheral Venous Blood Culture - Preliminary NO GROWTH OBTAINED AFTER 48 HOURS, INCUBATION TO CONTINUE FOR 3 DAYS. 07/03/18 13:10 Blood - Peripheral Venous Blood Culture - Preliminary NO GROWTH OBTAINED AFTER 48 HOURS, INCUBATION TO CONTINUE FOR 3 DAYS. 07/01/18 00:05 Blood - Peripheral Venous Blood Culture - Preliminary Staph Hominis Sub Sp Hominis 07/01/18 00:05 Blood - Peripheral Venous Blood Culture - Preliminary NO GROWTH OBTAINED AFTER 72 HOURS, INCUBATION TO CONTINUE FOR 2 DAYS. 07/01/18 19:54 Urine - Urine Clean Catch Urine Culture - Final Contaminated: Please Repeat IMAGING: -CXR: No acute chest pathology. -Head CT without contrast: No CT evidence of acute intracranial pathology. There has been no definite interval change in comparison to a prior CT exam of . A mucus retention cyst/polyp is again seen within the alveolar recess of the left maxillary sinus. -Carotid Doppler: No sonographic evidence of hemodynamically significant stenosis -Brain MRI without contrast: Generalized volume loss with few foci of a small vessel infarction in the periventricular white matter. There is no mass lesion acute infarction or hemorrhage. -EKG: Sinus tachycardia, VR 123, QTc 435 -ECHO: LV systolic function is normal. EF 50-55%, Mild TR HOSPITAL COURSE: Date of Admission:07/02/18 Date of Discharge: 07/05/18 57 y/o F with PMHx of IDDM presented with 5 day history of generalized weakness , admitted for AMS and New onset Seizures. Imaging and microbiology noted above. On admission patient was found to be hyperglycemic (590) without anion gap. Her home dose oral hypoglycemics were held and she was started on ISS and Levemir with which her BG impoved. Neurology was consulted and recommended starting Keppra. Patient had no seizure recurrence since adjusting her Keppra dose; her mental status and communication continued to improve. Patient was instructed to avoid driving or operating heavy machinery until she is evaluated and cleared by neurology. Patient had 1 blood cx bottle that was positive ( noted above) for which ID was consulted; Patient was started on empiric vanco however repeat blood cx had NGTD (noted above) and ID advised to observe off abx. Patient hypernatremia continued to improve with hydration. Her sx's continue to improve, she was able to speak in full sentences, follow command and ambulate in the hallway. Patient was discharged home with strict instruction for follow up; Her home insulin regimen was adjusted and she was instructed for medication compliance. Minutes to complete discharge: 36 Discharge Summary Reason For Visit: HYPERGLYCEMIA,LEUKOCYTOSIS,WEAKNESS Current Active Problems Hyperglycemia (Acute) Leukocytosis (Acute) Weakness (Acute) Condition: Improved - Instructions Diet, Activity, Other Instructions: You were admitted to the hospital because you had a seizure due to elevated blood glucose. You were seen by a neurologist and had no further seizures. Medication Changes: 1. Continue Levetiracetam (Keppra) 750mg twice a day---PLEASE DO NOT SKIP DOSES MISSING DOSE CAN CAUSE SEIZURES 2. Continue taking Metformin; Stop taking Glipizide and Januvia 3. Continue taking Levemir (detemir) 25 units at bed time 4. You are starting an Insulin sliding scale protocol: If your blood sugar is 150 or less, Take 0 units 151-200, Take 2 units 201-250, Take 4 units 251-300, Take 6 units 301-350, Take 8 units 351-400, Take 10 units >400, Take 12 units and call your physician Follow up with the following physicians: 1. Primary care physician in one week 2. Neurologist--Dr. Guo in one week as you need to have an EEG done out patient. YOU CANNOT OPERATE ANY HEAVY MACHINERY OR DRIVE UNTIL YOU HAVE FOLLOWED UP WITH AND BEEN CLEARED BY YOUR NEUROLOGIST Continue to drink plenty of fluids Continue all your other medications as prescribed Please return to the ER if you have any signs or symptoms of chest pain, shortness of breath, uncontrollable fever, chills, nausea, vomiting, numbness, tingling, or weakness in any part of your body, changes in vision, slurred speech, changes in speech/gait, or dizziness. Please return to the ER if symptoms persist, worsen, or new symptoms arise. Referrals: Jd Guo MD [Staff Physician] - Disposition: HOME - Home Medications Comprehensive Discharge Medication List: Ambulatory Orders Insulin Glargine,Hum.rec.anlog [Basaglar Kwikpen U-100] 25 unit SQ HS 05/16/18 Atorvastatin Ca [Lipitor] 20 mg PO HS 07/02/18 Metformin HCl [Glucophage] 1,000 mg PO BID 07/02/18 Insulin Sliding Scale [Novolog Vial Sliding Scale -] 0 units SQ ACHS #1 pen Levetiracetam [Keppra] 750 mg PO BID #180 tablet 07/05/18 This patient is new to me today: No Emergency Visit: Yes ED Registration Date: 07/02/18 Care time: The patient presented to the Emergency Department on the above date and was hospitalized for further evaluation of their emergent condition. Critical Care patient: No - Discharge Referral Referred to [facility] Med P.C.: No
[2018-07-05 15:51] VITALS: BP 123/69; PULSE 91; TEMP 97.8
== END 2018-07-05 17:10 | disposition home or self-care (01) | DRG 420 ==
LOC: JER 16:25 → JERBED 07-02 00:19 → UNDOADMOB 07-02 00:49 → JERBED 07-02 00:49 → OBSVTOIN 07-02 01:22 → INTOOBSV 07-02 01:22 → J4W 07-02 04:29
PROVIDERS: ADMIT Internal Medicine; ATTEND Internal Medicine
DX: E11.65 Type 2 diabetes mellitus with hyperglycemia (principal); Z79.4 Long term (current) use of insulin; D72.829 Elevated white blood cell count, unspecified; R53.1 Weakness; E86.0 Dehydration; E83.52 Hypercalcemia; J33.9 Nasal polyp, unspecified; G93.41 Metabolic encephalopathy; R56.9 Unspecified convulsions; E87.0 Hyperosmolality and hypernatremia; E87.2 Acidosis; N18.3 Chronic kidney disease, stage 3 (moderate); E87.5 Hyperkalemia
CPT/HCPCS: 36415; 70450-TC; 70551-TC; 71046-TC-FY; 80048; 80053; 80307; 81003; 82009; 82550; 82607; 82803; 82962; 83036; 83605; 83735; 83970; 84100; 84146; 84295; 84443; 84484; 85025; 85027; 85610; 85651; 85730; 86140; 86593; 87040; 87086; 87186; 87389; 87522; 87804; 93005; 93010; 93306-TC; 93880-TC; 97116-GP; 97161-GP; 99284-25; G0378; J1644; J7030

== ENCOUNTER 2019-12-01 05:09 | Day surgery (SDC) | payer OTHER ==
[2019-11-28 15:57] VITALS: BMI 24.2
[2019-12-01] MEDS ORDERED: LIDOCAINE HCL 2% (20ML MULTI-DOSE VIAL) ONE (09:07)
[2019-12-01] MEDS ORDERED: PROPOFOL 20 ML ONE ×3 (09:07)
[2019-12-01 10:22] VITALS: TEMP 97.1
[2019-12-01 11:35] VITALS: BP 129/68; PULSE 65
== END 2019-12-01 11:56 | disposition home or self-care (01) ==
LOC: JASU-ENDO 05:09
PROVIDERS: ATTEND Internal Medicine Gastroenterology
PROC: 0DB78ZX Excision of Stomach, Pylorus, Via Natural or Artificial Opening Endoscopic, Diagnostic (ICD-10-PCS; 2019-12-01)
PROC: 0DB68ZX Excision of Stomach, Via Natural or Artificial Opening Endoscopic, Diagnostic (ICD-10-PCS; principal; 2019-12-01 09:00)
DX: D64.9 Anemia, unspecified (principal); K29.50 Unspecified chronic gastritis without bleeding; E11.9 Type 2 diabetes mellitus without complications; Z79.4 Long term (current) use of insulin

== ENCOUNTER 2019-12-06 05:28 | Day surgery (SDC) | payer OTHER ==
[2019-12-01 16:56] VITALS: BMI 24.2
--- OUTSIDE RECORDS SUMMARY | 2019-12-06 05:44 | XMS ---
:1960 Author Organization [facility] Care Team Providers Name Role Phone Chumaceiro, Fernie Unavailable Unavailable Chumaceiro, Fernie Unavailable Unavailable Chumaceiro, Fernie Unavailable Unavailable Chumaceiro, Fernie Unavailable Unavailable Chumaceiro, Fernie Unavailable Unavailable Chumaceiro, Fernie Unavailable Unavailable Chumaceiro, Fernie Unavailable Unavailable Chumaceiro, Fernie Unavailable Unavailable DiGiorno, Christopher Unavailable [phone] DiGiorno, Christopher Unavailable [phone] DiGiorno, Christopher Unavailable [phone] Randee DEE MD Esteban Unavailable + Randee DEE MD Esteban Unavailable + MD Esteban Jeff MD Unavailable + Re-disclosure Warning The records that you are about to access may contain information from federally- assisted alcohol or drug abuse programs. If such information is present, then the following federally mandated warning applies: This information has been disclosed to you from records protected by federal confidentiality rules (42 CFR part 2). The federal rules prohibit you from making any further disclosure of this information unless further disclosure is expressly permitted by the written consent of the person to whom it pertains or as otherwise permitted by 42 CFR part 2. A general authorization for the release of medical or other information is NOT sufficient for this purpose. The Federal rules restrict any use of the information to criminally investigate or prosecute any alcohol or drug abuse patient.The records that you are about to access may contain highly sensitive health information, the redisclosure of which is protected by Article 27-F of the [facility] Public Health law. If you continue you may haveaccess to information: Regarding HIV / AIDS; Provided by facilities licensed or operated by the [facility] Office of Mental Health; or Provided by the [facility] Office for People With Developmental Disabilities. If such information is present, then the following [facility] mandated warning applies: This information has been disclosed to you from confidential records which are protected by state law. State law prohibits you from making any further disclosure of this information without the specific written consent of the person to whom it pertains, or as otherwise permitted by law. Any unauthorized further disclosure in violation of state law may result in a fine or custodial sentence or both. A general authorization for the release of medical or other information is NOT sufficient authorization for further disclosure. Allergies and Adverse Reactions Type Description Substance Reaction Status Data Source(s ) Drug allergy aspirin Aspirin Active [facility] Drug allergy aspirin Aspirin Active [facility] Drug allergy aspirin Aspirin Active [facility] ) Encounters Encounter Providers Location Date Indications Data Source(s ) Attender: Pasha 11/16/2019 [facility] ([facility]) EDT Office Attender: Pasha 11/16/2019 12:00:00 AM ED T [facility] ([facility], ) Office Attender: Pasha 11/16/2019 12:00:00 AM ED T [facility] ([facility], ) Office Attender: Pasha 11/16/2019 12:00:00 AM ED T [facility] ([facility], ) Office Attender: MD Esteban Jeff 09/14/2019 12:00:00 A M EDT [facility] Office Attender: MD Esteban Jeff 09/14/2019 12:00:00 A M EDT [facility] Office Attender: MD Esteban Jeff 09/14/2019 12:00:00 A M EDT [facility] Office Attender: MD Esteban Jeff 09/14/2019 12:00:00 A M EDT [facility] Office Attender: MD Esteban Jeff 09/14/2019 12:00:00 A M EDT [facility] Office Attender: MD Esteban Jeff 09/14/2019 12:00:00 A M EDT [facility] Office Attender: Fernie 09/08/2019 12:00:00 AM EDT [facility] ([facility]) Office Attender: Fernie 09/08/2019 12:00:00 AM EDT [facility] ([facility]) Office Attender: Fernie 09/08/2019 12:00:00 AM EDT [facility] ([facility]) Office Immunizations Vaccine Date Status Description Data Source(s) New in 2011. IIV4 05/04/2018 12:00:00 completed ME D[facility] ([facility]) New in 2011. IIV4 05/04/2018 12:00:00 completed ME D[facility] ([facility]) New in 2011. IIV4 05/04/2018 12:00:00 completed ME DGEN ([facility]) New in 2011. IIV4 05/04/2018 12:00:00 completed ME DGEN ([facility]) New in 2011. IIV4 05/04/2018 12:00:00 completed ME DGEN ([facility]) New in 2011. IIV4 05/04/2018 12:00:00 completed ME DGEN ([facility]) New in 2011. IIV4 12/22/2016 12:00:00 completed ME DGEN ([facility] EDT [facility], [facility]) New in 2011. IIV4 12/22/2016 12:00:00 completed [facility] New in 2011. IIV4 12/22/2016 12:00:00 completed [facility] [facility] New in 2011[facility] IIV4 12/22/2016 12:00:00 [facility], [facility] New in 2011. IIV4 12/22/2016 12:00:00 completed ME DGEN ([facility] EDT Medical, ) New in 2011. IIV4 12/22/2016 12:00:00 completed ME DGEN ([place] EDT Medical, ) Medications Medication Brand Start Product Dose Route Administrative Pharmacy [facility] Indications Reaction Description Data Name Date Form Instructions Instructions Source(s) Bisacodyl 5 DULCOL 11/15/ DELAYED 6 complet DUL COLAX MED[facility] (St MG Delayed AX 2020 RELEASE ed LAXATIVE [facility] Release LAXATI 12:00: TABLET Medica l, Oral Tablet VE: AM PC) [Dulcolax] 613 EDT DULCOLAX LAXATIVE:20 9613 POLYETHYLEN GOLYTE 11/15/ POWDER 1 complet GOLY TELY MED[facility] (St E GLYCOL LY:966 2019 FOR ed [facility] 3350 60 916 12:00: RECONSTI Medica l, MG/ML / AM TUTION PC) Potassium EDT Chloride 0.01 MEQ/ML / Sodium Bicarbonate 0.02 MEQ/ML / Sodium Chloride 0.025 MEQ/ML / sodium sulfate 0.04 MEQ/ML Oral Solution [Golytely] GOLYTELY:96 6916 Bisacodyl 5 DULCOL 11/15/ DELAYED 6 complet DUL COLAX [facility] (St MG Delayed AX 2020 RELEASE ed LAXATIVE [facility] Release LAXATI 12:00: TABLET Medica l, Oral Tablet VE: AM PC) [Dulcolax] 613 EDT DULCOLAX LAXATIVE:20 9613 POLYETHYLEN GOLYTE 11/15/ POWDER 1 complet GOLY TELY [facility] (St E GLYCOL LY:966 2019 FOR ed [facility] 3350 60 916 12:00: RECONSTI Medica l, MG/ML / 00 AM TUTION PC) Potassium EDT Chloride 0.01 MEQ/ML / Sodium Bicarbonate 0.02 MEQ/ML / Sodium Chloride 0.025 MEQ/ML / sodium sulfate 0.04 MEQ/ML Oral Solution [Golytely] GOLYTELY:96 6916 atorvastati ATORVA 09/13/ complet ATORVA STATIN MED[facility] (St n STATIN 2020 ed Alysias ATORVASTATI :82622 12:00: Medi jeferson, N:[id number] 00 AM PC) EDT Metformin METFOR 09/13/ TABLET 30 complet METFOR MIN MEDGEN (St hydrochlori MIN:2019 ed Ez's de 500 MG 1007 12:00: Medical, Oral Tablet 00 AM PC) METFORMIN:8 EDT 58062 atorvastati ATORVA 09/13/ complet ATORVA STATIN MED[facility] (St n STATIN 2020 ed Ez[facility] ATORVASTATI :90577 12:00: [facility] jeferson, N:[id number] 00 AM PC) EDT Metformin METFOR 09/13/ TABLET 30 complet METFOR MIN MEDGEN (St hydrochlori MIN:2019 ed Ez's de 500 MG 1007 12:00: Medical, Oral Tablet 00 AM PC) METFORMIN:8 EDT 18928 atorvastati ATORVA 09/13/ complet ATORVA STATIN MEDGEN (St n STATIN 2020 ed Ez's ATORVASTATI :23679 12:00: Medi jeferson, N:[id number] 00 AM PC) EDT atorvastati ATORVA 09/13/ complet ATORVA STATIN MEDGEN (St n STATIN 2020 ed Ez's ATORVASTATI :59291 12:00: Medi jeferson, N:[id number] 00 AM PC) EDT Metformin METFOR 09/13/ TABLET 30 complet METFOR MIN MEDGEN (St hydrochlori MIN:2019 ed Ez's de 500 MG 1007 12:00: Medical, Oral Tablet 00 AM PC) METFORMIN:8 EDT 93664 Metformin METFOR 09/13/ TABLET 30 complet METFOR MIN MEDGEN (St hydrochlori MIN:2019 ed Ez's de 500 MG 1007 12:00: Medical, Oral Tablet 00 AM PC) METFORMIN:8 EDT 83110 atorvastati ATORVA 09/13/ complet ATORVA STATIN MEDGEN (St n STATIN 2020 ed Ez's ATORVASTATI :56855 12:00: Medi jeferson, N:[id number] 00 AM PC) EDT Metformin METFOR 09/13/ TABLET 30 complet METFOR MIN MED[facility] (St hydrochlori MIN:86 2019 ed Ez's de 500 MG 1007 12:00: Medical, Oral Tablet 00 AM PC) METFORMIN:8 EDT 47444 3 ML LANTUS 10/15/ complet LANTUS MEDGEN (St Insulin :43297 2016 ed Ez's Gl[place] 0 12:00: Medical, 100 UNT/ML 00 AM PC) Pen EDT Injector LANTUS:8472 30 3 ML LANTUS 10/15/ complet LANTUS MEDGEN (St Insulin :13304 2016 ed Ez's [place] 0 12:00: Medical, 100 UNT/ML 00 AM PC) Pen EDT Injector LANTUS:8472 30 3 ML LANTUS 10/15/ complet LANTUS MEDGEN (St Insulin :02533 2016 ed Ez's [place] 0 12:00: Medical, 100 UNT/ML 00 AM PC) Pen EDT Injector LANTUS:8472 30 3 ML LANTUS 10/15/ complet LANTUS MEDGEN (St Insulin :17751 2016 ed Ez's [place] 0 12:00: Medical, 100 UNT/ML 00 AM PC) Pen EDT Injector LANTUS:8472 30 3 ML LANTUS 10/15/ complet LANTUS MEDGEN (St Insulin :99835 2017 ed Ez's [place] 0 12:00: Medical, 100 UNT/ML 00 AM PC) Pen EDT Injector LANTUS:8472 30 3 ML LANTUS 10/15/ complet LANTUS MEDGEN (St Insulin :52524 2016 ed Ez's [place] 0 12:00: Medical, 100 UNT/ML 00 AM PC) Pen EDT Injector LANTUS:8472 30 Insurance Providers Payer name Policy type Policy ID Covered Covered libertarian's Policy P maurizio / Coverage libertarian ID relationship to Hdz Inf ormation type hdz ENRRIQUE [id number] 600 [facility] [id number] [place] [id number] SP [id number] Problems, Conditions, and Diagnoses Code Display Name Description Problem Effective Data Type Dates Source(s) D64.9 Anemia, ANEMIA, UNSPECIFIED Problem 11/16/2019 MEDGE N (St unspecified 12:00:00 AM [facility]) Z12.11 Encounter for ENCOUNTER FOR SCREENING Problem 0 MEDGEN (St screening for FOR MALIGNANT NEOPLASM 12:00:[address] [facility] malignant OF COLON [facility]) neoplasm of colon D64.9 Anemia, ANEMIA, UNSPECIFIED Problem 11/16/2019 MEDGE N (St unspecified 12:00:00 AM [facility] [place]) Z12.11 Encounter for ENCOUNTER FOR SCREENING Problem 0 MEDGEN (St screening for FOR MALIGNANT NEOPLASM 12:00:[address] [facility] malignant OF COLON [facility]) neoplasm of colon N20.9 Urinary calculus, URINARY CALCULUS, Problem 10/19/2019 MEDGEN (St unspecified UNSPECIFIED 12:00:00 AM [facility], ) E87.5 Hyperkalemia HYPERKALEMIA Problem 09/14/2019 MEDGEN (St 12:00:00 AM [facility]) N18.9 Chronic kidney CHRONIC KIDNEY DISEASE, Problem 09/14/19 MEDGEN (St disease, UNSPECIFIED 12:00:00 AM [facility]) E87.5 Hyperkalemia HYPERKALEMIA Problem 09/14/2019 MEDGEN (St 12:00:00 AM [facility]) N18.9 Chronic kidney CHRONIC KIDNEY DISEASE, Problem 09/14/19 20 MEDGEN (St disease, UNSPECIFIED 12:00:00 AM [facility]) E87.5 Hyperkalemia HYPERKALEMIA Problem 09/14/2019 MEDGEN (St 12:00:00 AM [facility], ) N18.9 Chronic kidney CHRONIC KIDNEY DISEASE, Problem 09/14/19 20 MEDGEN (St disease, UNSPECIFIED 12:00:00 AM [facility]) E87.5 Hyperkalemia HYPERKALEMIA Problem 09/14/2019 MEDGEN (St 12:00:00 AM [facility]) N18.9 Chronic kidney CHRONIC KIDNEY DISEASE, Problem 09/14/19 MEDGEN (St disease, UNSPECIFIED 12:00:00 AM [facility] unspecified EDT Medical, PC) E87.5 Hyperkalemia HYPERKALEMIA Problem 09/14/2019 MEDGEN (St 12:00:00 AM Ez[facility] EDT Medical, PC) N18.9 Chronic kidney CHRONIC KIDNEY DISEASE, Problem 09/14/19 MEDGEN (St disease, UNSPECIFIED 12:00:00 AM [facility] unspecified EDT Medical, PC) N39.0 Urinary tract URINARY TRACT INFECTION, Problem 07/21/19 MEDGEN (St infection, site SITE NOT SPECIFIED 12:00:00 AM [facility] not specified EDT Medical, PC ) N39.0 Urinary tract URINARY TRACT INFECTION, Problem 07/21/19 MEDGEN (St infection, site SITE NOT SPECIFIED 12:00:00 AM Ez's not specified EDT Medical, PC ) N39.0 Urinary tract URINARY TRACT INFECTION, Problem 07/21/19 MEDGEN (St infection, site SITE NOT SPECIFIED 12:00:00 AM Ez's not specified EDT Medical, PC ) N39.0 Urinary tract URINARY TRACT INFECTION, Problem 07/21/19 MEDGEN (St infection, site SITE NOT SPECIFIED 12:00:00 AM Ez's not specified EDT Medical, PC ) N39.0 Urinary tract URINARY TRACT INFECTION, Problem 07/21/19 MEDGEN (St infection, site SITE NOT SPECIFIED 12:00:00 AM Ez's not specified EDT Medical, PC ) N39.0 Urinary tract URINARY TRACT INFECTION, Problem 07/21/19 MEDGEN (St infection, site SITE NOT SPECIFIED 12:00:00 AM Ez's not specified EDT Medical, PC ) E11.65 Type 2 diabetes TYPE 2 DIABETES MELLITUS Problem 2018 MEDGEN (St mellitus with WITH HYPERGLYCEMIA 12:00:00 AM [facility] hyperglycemia EDT Medical, PC ) E11.65 Type 2 diabetes TYPE 2 DIABETES MELLITUS Problem 2018 MEDGEN (St mellitus with WITH HYPERGLYCEMIA 12:00:00 AM [facility] hyperglycemia EDT Medical, PC ) E11.65 Type 2 diabetes TYPE 2 DIABETES MELLITUS Problem 2018 MEDGEN (St mellitus with WITH HYPERGLYCEMIA 12:00:00 AM [facility] hyperglycemia EDT Medical, PC ) E11.65 Type 2 diabetes TYPE 2 DIABETES MELLITUS Problem 2018 MEDGEN (St mellitus with WITH HYPERGLYCEMIA 12:00:00 AM [facility] hyperglycemia EDT Medical, PC ) E11.65 Type 2 diabetes TYPE 2 DIABETES MELLITUS Problem 2018 MEDGEN (St mellitus with WITH HYPERGLYCEMIA 12:00:00 AM [facility] hyperglycemia EDT Medical, PC ) E11.65 Type 2 diabetes TYPE 2 DIABETES MELLITUS Problem 2018 MEDGEN (St mellitus with WITH HYPERGLYCEMIA 12:00:00 AM [facility] hyperglycemia EDT Medical, PC ) Z23 Encounter for ENCOUNTER FOR Problem 12/14/2018 MEDGEN ( St immunization IMMUNIZATION 12:00:00 AM [facility]'s EDT Medical, ) Z23 Encounter for ENCOUNTER FOR Problem 12/14/2018 MEDGEN ( St immunization IMMUNIZATION 12:00:00 AM Ez's EDT Medical, ) Z23 Encounter for ENCOUNTER FOR Problem 12/14/2018 MEDGEN ( St immunization IMMUNIZATION 12:00:00 AM Ez's EDT Medical, ) Z23 Encounter for ENCOUNTER FOR Problem 12/14/2018 MEDGEN ( St immunization IMMUNIZATION 12:00:00 AM Ez's EDT Medical, ) Z23 Encounter for ENCOUNTER FOR Problem 12/14/2018 MEDGEN ( St immunization IMMUNIZATION 12:00:00 AM Ez's EDT Medical, ) Z23 Encounter for ENCOUNTER FOR Problem 12/14/2018 MEDGEN ( St immunization IMMUNIZATION 12:00:00 AM Ez's EDT Medical, ) G40.89 Other seizures OTHER SEIZURES Problem 08/25/2018 MEDGEN (St 12:00:00 AM Ez's EDT Medical, ) G40.89 Other seizures OTHER SEIZURES Problem 08/25/2018 MEDGEN (St 12:00:00 AM Ez's EDT Medical, ) G40.89 Other seizures OTHER SEIZURES Problem 08/25/2018 MEDGEN (St 12:00:00 AM Ez's EDT Medical, ) G40.89 Other seizures OTHER SEIZURES Problem 08/25/2018 MEDGEN (St 12:00:00 AM Ez's EDT Medical, ) G40.89 Other seizures OTHER SEIZURES Problem 08/25/2018 MEDGEN (St 12:00:00 AM Ez's EDT Medical, ) G40.89 Other seizures OTHER SEIZURES Problem 08/25/2018 MEDGEN (St 12:00:00 AM [facility]'s EDT Medical, ) E78.5 Hyperlipidemia, HYPERLIPIDEMIA, Problem 12/22/2016 MEDG EN (St unspecified UNSPECIFIED 12:00:00 AM Ez's EDT Medical, PC) E11.69 Type 2 diabetes TYPE 2 DIABETES MELLITUS Problem 2016 MEDGEN (St mellitus with WITH OTHER SPECIFIED 12:00:00 AM Ez's other specified COMPLICATION EDT Medical , PC) complication E78.5 Hyperlipidemia, HYPERLIPIDEMIA, Problem 12/22/2016 MEDG EN (St unspecified UNSPECIFIED 12:00:00 AM Ez's EDT Medical, PC) E11.69 Type 2 diabetes TYPE 2 DIABETES MELLITUS Problem 2016 MEDGEN (St mellitus with WITH OTHER SPECIFIED 12:00:00 AM Ez's other specified COMPLICATION EDT Medical , PC) complication E78.5 Hyperlipidemia, HYPERLIPIDEMIA, Problem 12/22/2016 MEDG EN (St unspecified UNSPECIFIED 12:00:00 AM Ez's EDT Medical, ) E11.69 Type 2 diabetes TYPE 2 DIABETES MELLITUS Problem 2016 MEDGEN (St mellitus with WITH OTHER SPECIFIED 12:00:00 AM Ez's other specified COMPLICATION EDT Medical , PC) complication E78.5 Hyperlipidemia, HYPERLIPIDEMIA, Problem 12/22/2016 MEDG EN (St unspecified UNSPECIFIED 12:00:00 AM Ez's EDT Medical, PC) E11.69 Type 2 diabetes TYPE 2 DIABETES MELLITUS Problem 2016 MEDGEN (St mellitus with WITH OTHER SPECIFIED 12:00:00 AM Ez's other specified COMPLICATION EDT Medical , PC) complication E78.5 Hyperlipidemia, HYPERLIPIDEMIA, Problem 12/22/2016 MEDG EN (St unspecified UNSPECIFIED 12:00:00 AM Ez's EDT Medical, PC) E11.69 Type 2 diabetes TYPE 2 DIABETES MELLITUS Problem 2016 MEDGEN (St mellitus with WITH OTHER SPECIFIED 12:00:00 AM Ez's other specified COMPLICATION EDT Medical , PC) complication E78.5 Hyperlipidemia, HYPERLIPIDEMIA, Problem 12/22/2016 MEDG EN (St unspecified UNSPECIFIED 12:00:00 AM Ez's EDT Medical, PC) E11.69 Type 2 diabetes TYPE 2 DIABETES MELLITUS Problem 2016 MEDGEN (St mellitus with WITH OTHER SPECIFIED 12:00:00 AM Ez's other specified COMPLICATION EDT Medical , ) complication E78.00 Pure PURE Problem 10/15/2016 MEDGEN (St hypercholesterole HYPERCHOLESTEROLEMIA 12:00:00 AM [facility], unspecified EDT Medical, ) R63.4 Abnormal weight ABNORMAL WEIGHT LOSS Problem 10/15/2016 MEDGEN (St loss 12:00:00 AM [facility] EDT Medical, ) I10 Essential ESSENTIAL (PRIMARY) Problem 10/15/2016 MEDGE N (St (primary) HYPERTENSION 12:00:00 AM Ez's hypertension EDT Medical, ) E11.9 Type 2 diabetes TYPE 2 DIABETES MELLITUS Problem 2016 MEDGEN (St mellitus without WITHOUT COMPLICATIONS 12:00:00 AM Ez's complications EDT Medical, ) E78.00 Pure PURE Problem 10/15/2016 MEDGEN (St hypercholesterole HYPERCHOLESTEROLEMIA 12:00:00 AM [facility], unspecified EDT Medical, ) R63.4 Abnormal weight ABNORMAL WEIGHT LOSS Problem 10/15/2016 MEDGEN (St loss 12:00:00 AM [facility] EDT Medical, ) I10 Essential ESSENTIAL (PRIMARY) Problem 10/15/2016 MEDGE N (St (primary) HYPERTENSION 12:00:00 AM Ez's hypertension EDT Medical, ) E11.9 Type 2 diabetes TYPE 2 DIABETES MELLITUS Problem 2016 MEDGEN (St mellitus without WITHOUT COMPLICATIONS 12:00:00 AM Ez's complications EDT Medical, ) E78.00 Pure PURE Problem 10/15/2016 MEDGEN (St hypercholesterole HYPERCHOLESTEROLEMIA 12:00:00 AM [facility], unspecified EDT Medical, ) R63.4 Abnormal weight ABNORMAL WEIGHT LOSS Problem 10/15/2016 MEDGEN (St loss 12:00:00 AM [facility] EDT Medical, ) I10 Essential ESSENTIAL (PRIMARY) Problem 10/15/2016 MEDGE N (St (primary) HYPERTENSION 12:00:00 AM Ez's hypertension EDT Medical, ) E11.9 Type 2 diabetes TYPE 2 DIABETES MELLITUS Problem 2016 MEDGEN (St mellitus without WITHOUT COMPLICATIONS 12:00:00 AM Ez[facility] complications EDT Medical, ) E78.00 Pure PURE Problem 10/15/2016 MEDGEN (St hypercholesterole HYPERCHOLESTEROLEMIA 12:00:00 AM [facility], unspecified EDT Medical, ) R63.4 Abnormal weight ABNORMAL WEIGHT LOSS Problem 10/15/2016 MEDGEN (St loss 12:00:00 AM Ez's EDT [facility], ) I10 Essential ESSENTIAL (PRIMARY) Problem 10/15/2016 MEDGE N (St (primary) HYPERTENSION 12:00:00 AM Ez's hypertension EDT [facility], ) E11.9 Type 2 diabetes TYPE 2 DIABETES MELLITUS Problem 2016 MEDGEN (St mellitus without WITHOUT COMPLICATIONS [facility] E78.00 Pure PURE Problem 10/15/2016 MEDGEN (St hypercholesterole HYPERCHOLESTEROLEMIA 12:00:00 AM Ez's carl, unspecified T Medical, ) R63.4 Abnormal weight ABNORMAL WEIGHT LOSS Problem 10/15/2016 MEDGEN (St loss 12:00:00 AM Ez's EDT [facility], ) I10 Essential ESSENTIAL (PRIMARY) Problem 10/15/2016 MEDGE N (St (primary) HYPERTENSION 12:00:00 AM Ez's hypertension T Medical, ) E11.9 Type 2 diabetes TYPE 2 DIABETES MELLITUS Problem 2016 MEDGEN (St mellitus without WITHOUT COMPLICATIONS 12:00:00 AM Ez's complications EDT Medical, ) E78.00 Pure PURE Problem 10/15/2016 MEDGEN (St hypercholesterole HYPERCHOLESTEROLEMIA 12:00:00 AM Ez's carl, unspecified T Medical, ) R63.4 Abnormal weight ABNORMAL WEIGHT LOSS Problem 10/15/2016 MEDGEN (St loss 12:00:00 AM Ez's EDT Medical, ) I10 Essential ESSENTIAL (PRIMARY) Problem 10/15/2016 MEDGE N (St (primary) HYPERTENSION 12:00:00 AM [facility] hypertension T Medical, ) E11.9 Type 2 diabetes TYPE 2 DIABETES MELLITUS Problem 2016 MEDGEN (St mellitus without WITHOUT COMPLICATIONS 12:00:00 AM Ez's complications T Medical, ) Surgeries/Procedures Procedure Description Date Indications Data Source(s) Documentation of current 11/16/2019 MED GEN ([facility] medications (procedure) 12:00:00 AM ADITI borrego, CHARLIE) Documentation of current 11/16/2019 MED GEN ([facility] medications (procedure) 12:00:00 AM EDSundeep borrego, CHARLIE) Documentation of current 11/16/2019 MED GEN ([facility] medications (procedure) 12:00:00 AM EDT [facility], PC) BLOOD OCCULT PEROXIDASE 11/16/2019 MEDG EN ([facility] ACTV QUAL OTHER SOURCES 12:00:00 AM EDT [facility], PC) COLLECTION VENOUS BLOOD 11/16/2019 MEDG EN ([facility] VENIPUNCTURE 12:00:00 AM EDT Medical, PC) Documentation of current 11/16/2019 MED GEN ([facility] medications (procedure) 12:00:00 AM EDT elmo, PC) Documentation of current 11/16/2019 MED GEN ([facility] medications (procedure) 12:00:00 AM EDT [facility], PC) Documentation of current 11/16/2019 MED GEN ([facility] medications (procedure) 12:00:00 AM EDT [facility], PC) BLOOD OCCULT PEROXIDASE 11/16/2019 MEDG EN ([facility] ACTV QUAL OTHER SOURCES 12:00:00 AM EDT [facility], PC) COLLECTION VENOUS BLOOD 11/16/2019 MEDG EN ([facility] VENIPUNCTURE 12:00:00 AM EDT Medical, PC) OFFICE OUTPATIENT VISIT 15 10/19/2019 Karthik EDGEN ([facility] MINUTES 12:00:00 AM EDT Medical, PC) Documentation of current 09/14/2019 MED GEN ([facility] medications (procedure) 12:00:00 AM EDT elmo, PC) Documentation of current 09/14/2019 MED GEN ([facility] medications (procedure) 12:00:00 AM EDT elmo, PC) Documentation of current 09/14/2019 MED GEN ([facility] medications (procedure) 12:00:00 AM EDT elmo, PC) Documentation of current 09/14/2019 MED GEN ([facility] medications (procedure) 12:00:00 AM EDT elmo, PC) Documentation of current 09/14/2019 MED GEN ([facility] medications (procedure) 12:00:00 AM EDT [facility]ical, PC) Documentation of current 09/14/2019 MED GEN ([facility] medications (procedure) 12:00:00 AM EDT [facility]ical, PC) Documentation of current 09/14/2019 MED GEN ([facility] medications (procedure) 12:00:00 AM EDT elmo, PC) OFFICE OUTPATIENT NEW 09/14/2019 MED GEN ([facility] MINUTES 12:00:00 AM T Medical, ) Documentation of current 09/14/2019 MED GEN ([facility] medications (procedure) 12:00:00 AM EDT angical, PC) Documentation of current 09/14/2019 MED GEN ([facility] medications (procedure) 12:00:00 AM EDT elmo, PC) Documentation of current 09/14/2019 MED GEN ([facility] medications (procedure) 12:00:00 AM EDT elmo, PC) Documentation of current 09/14/2019 MED GEN ([facility] medications (procedure) 12:00:00 AM EDT elmo, PC) Documentation of current 09/14/2019 MED GEN ([facility] medications (procedure) 12:00:00 AM EDT angical, PC) Documentation of current 09/14/2019 MED GEN ([facility] medications (procedure) 12:00:00 AM EDT elmo, PC) Documentation of current 09/14/2019 MED GEN ([facility] medications (procedure) 12:00:00 AM EDT elmo, PC) OFFICE OUTPATIENT NEW 09/14/2019 MED GEN ([facility] MINUTES 12:00:00 AM [facility], ) Documentation of current 09/14/2019 MED GEN ([facility] medications (procedure) 12:00:00 AM EDT elmo, PC) Documentation of current 09/14/2019 MED GEN ([facility] medications (procedure) 12:00:00 AM EDT elmo, PC) Documentation of current 09/14/2019 MED GEN ([facility] medications (procedure) 12:00:00 AM EDT elmo, PC) Documentation of current 09/14/2019 MED GEN ([facility] medications (procedure) 12:00:00 AM EDT elmo, PC) Documentation of current 09/14/2019 MED GEN ([facility] medications (procedure) 12:00:00 AM EDT angical, PC) Documentation of current 09/14/2019 MED GEN ([facility] medications (procedure) 12:00:00 AM EDT elmo, PC) OFFICE OUTPATIENT NEW 09/14/2019 MED GEN ([facility] MINUTES 12:00:00 AM EDT Medical, PC) Documentation of current 09/14/2019 MED GEN ([facility] medications (procedure) 12:00:00 AM EDT [facility]) Documentation of current 09/14/2019 MED GEN ([facility] medications (procedure) 12:00:00 AM EDT [facility]) Documentation of current 09/14/2019 MED GEN ([facility] medications (procedure) 12:00:00 AM EDT [facility]) Documentation of current 09/14/2019 MED GEN ([facility] medications (procedure) 12:00:00 AM EDT [facility]) Documentation of current 09/14/2019 MED GEN ([facility] medications (procedure) 12:00:00 AM EDT [facility]) Documentation of current 09/14/2019 MED GEN ([facility] medications (procedure) 12:00:00 AM EDT [facility]) OFFICE OUTPATIENT NEW 09/14/2019 MED GEN ([facility] MIN[facility]ES 12:00:00 AM EDT [facility]) Documentation of current 09/14/2019 MED GEN ([facility] medications (procedure) 12:00:00 AM EDT [facility]) Documentation of current 09/14/2019 MED GEN ([facility] medications (procedure) 12:00:00 AM EDT [facility]) Documentation of current 09/14/2019 MED GEN ([facility] medications (procedure) 12:00:00 AM EDT [facility]) Documentation of current 09/14/2019 MED GEN ([facility] medications (procedure) 12:00:00 AM EDT [facility]) Documentation of current 09/14/2019 MED GEN ([facility] medications (procedure) 12:00:00 AM EDT [facility]) Documentation of current 09/14/2019 MED GEN ([facility] medications (procedure) 12:00:00 AM EDT [facility]) Documentation of current 09/14/2019 MED GEN ([facility] medications (procedure) 12:00:00 AM EDT [facility]) OFFICE OUTPATIENT NEW 09/14/2019 MED GEN ([facility] MIN[facility]ES 12:00:00 AM EDT Medical, ) Documentation of current 09/08/2019 MED GEN ([facility] medications (procedure) 12:00:00 AM EDT [facility], ) OFFICE OUTPATIENT VISIT 15 09/08/2019 Karthik AMEZCUAN ([facility]ES 12:00:00 AM EDT Medical, ) Documentation of current 09/08/2019 MED GEN ([facility] medications (procedure) 12:00:00 AM EDT [facility], ) OFFICE OUTPATIENT VISIT 15 09/08/2019 Karthik SEVENN ([facility]ES 12:00:00 AM EDT Medical, ) Documentation of current 09/08/2019 MED GEN ([facility] medications (procedure) 12:00:00 AM EDT [facility], ) OFFICE OUTPATIENT VISIT 15 09/08/2019 Karthik SEVENN ([facility] MIN[facility]ES 12:00:00 AM EDT Medical, ) Documentation of current 09/08/2019 MED GEN ([facility] medications (procedure) 12:00:00 AM EDT [facility], ) OFFICE OUTPATIENT VISIT 15 09/08/2019 Karthik SEVNEN ([facility]ES 12:00:00 AM EDT Medical, ) Documentation of current 09/08/2019 MED GEN ([facility] medications (procedure) 12:00:00 AM EDT [facility], ) OFFICE OUTPATIENT VISIT 15 09/08/2019 Karthik SEVENN ([facility] MIN[facility]ES 12:00:00 AM EDT Medical, ) Documentation of current 09/08/2019 MED GEN ([facility] medications (procedure) 12:00:00 AM EDT [facility], ) OFFICE OUTPATIENT VISIT 15 09/08/2019 Karthik SEVENN ([facility]ES 12:00:00 AM EDT Medical, ) Documentation of current 07/21/2019 MED GEN ([facility] medications (procedure) 12:00:00 AM EDT [facility], ) OFFICE OUTPATIENT VISIT 10 07/21/2019 Karthik SEVENN ([facility]ES 12:00:00 AM EDT Medical, ) Documentation of current 07/21/2019 MED GEN ([facility] medications (procedure) 12:00:00 AM EDT [facility], ) OFFICE OUTPATIENT VISIT 10 07/21/2019 Karthik AMEZCUAN ([facility]ES 12:00:00 AM EDT Medical, ) Documentation of current 07/21/2019 MED GEN ([facility] medications (procedure) 12:00:00 AM EDT [facility], ) OFFICE OUTPATIENT VISIT 10 07/21/2019 Karthik AMEZCUAJamal ([facility] MIN[facility]ES 12:00:00 AM ED Medical, ) Documentation of current 07/21/2019 MED GEN ([facility] medications (procedure) 12:00:00 AM EDT [facility], ) OFFICE OUTPATIENT VISIT 10 07/21/2019 Karthik AMEZCUAJamal ([facility]ES 12:00:00 AM ED Medical, ) Documentation of current 07/21/2019 MED GEN ([facility] medications (procedure) 12:00:00 AM EDT [facility], ) OFFICE OUTPATIENT VISIT 10 07/21/2019 Karthik ELENA ([facility]ES 12:00:00 AM ED Medical, ) Documentation of current 07/21/2019 MED GEN ([facility] medications (procedure) 12:00:00 AM EDT [facility], ) OFFICE OUTPATIENT VISIT 10 07/21/2019 Karthik ELENA ([facility]ES 12:00:00 AM [facility], ) Documentation of current 05/05/2019 MED GEN ([facility] medications (procedure) 12:00:00 AM EST [facility], ) Documentation of current 05/05/2019 MED GEN ([facility] medications (procedure) 12:00:00 AM EST [facility], ) Documentation of current 05/05/2019 MED GEN ([facility] medications (procedure) 12:00:00 AM EST [facility], ) OFFICE OUTPATIENT VISIT 15 05/05/2019 Karthik AMEZCUAN ([facility]ES 12:00:00 AM EST Medical, ) COLLECTION VENOUS BLOOD 05/05/2019 MEDG EN ([facility] VENIPUNCTURE 12:00:00 AM EST [facility]) Documentation of current 05/05/2019 MED GEN ([facility] medications (procedure) 12:00:00 AM EST [facility], ) Documentation of current 05/05/2019 MED GEN ([facility] medications (procedure) 12:00:00 AM EST [facility], ) Documentation of current 05/05/2019 MED GEN ([facility] medications (procedure) 12:00:00 AM EST [facility]) OFFICE OUTPATIENT VISIT 15 05/05/2019 Karthik PARKER ([facility]ES 12:00:00 AM EST Medical, ) COLLECTION VENOUS BLOOD 05/05/2019 MEDG EN ([facility] VENIPUNCTURE 12:00:00 AM EST [facility], [facility]) Documentation of current 05/05/2019 MED GEN ([facility] medications (procedure) 12:00:00 AM EST [facility]) Documentation of current 05/05/2019 MED GEN ([facility] medications (procedure) 12:00:00 AM EST [facility]) Documentation of current 05/05/2019 MED GEN ([facility] medications (procedure) 12:00:00 AM EST [facility]) OFFICE OUTPATIENT VISIT 15 05/05/2019 Karthik PARKER ([facility]ES 12:00:00 AM EST Medical, ) COLLECTION VENOUS BLOOD 05/05/2019 MEDG EN ([facility] VENIPUNCTURE 12:00:00 AM EST [facility], [facility]) Documentation of current 05/05/2019 MED GEN ([facility] medications (procedure) 12:00:00 AM EST [facility]) Documentation of current 05/05/2019 MED GEN ([facility] medications (procedure) 12:00:00 AM EST [facility]) Documentation of current 05/05/2019 MED GEN ([facility] medications (procedure) 12:00:00 AM EST [facility]) OFFICE OUTPATIENT VISIT 15 05/05/2019 Karthik PARKER ([facility]ES 12:00:00 AM EST [facility]) COLLECTION VENOUS BLOOD 05/05/2019 MEDG EN ([facility] VENIPUNCTURE 12:00:00 AM EST [facility]) Documentation of current 05/05/2019 MED GEN ([facility] medications (procedure) 12:00:00 AM EST [facility]) Documentation of current 05/05/2019 MED GEN ([facility] medications (procedure) 12:00:00 AM EST [facility]) Documentation of current 05/05/2019 MED GEN ([facility] medications (procedure) 12:00:00 AM EST [facility]) OFFICE OUTPATIENT VISIT 15 05/05/2019 M EDGEN ([facility] MIN[facility]ES 12:00:00 AM EST Medical, ) COLLECTION VENOUS BLOOD 05/05/2019 MEDG EN ([facility] VENIPUNCTURE 12:00:00 AM EST Medical, ) Documentation of current 05/05/2019 MED GEN ([facility]) [facility] Documentation of current 05/05/2019 MED GEN ([facility] (procedure) [facility]:00:[facility] Documentation of current 05/05/2019 MED GEN ([facility] (procedure) [facility] OFFICE OUTPATIENT VISIT 15 05/05/2019 Karthik ELENA ([facility] MIN[facility]ES 12:00:00 AM [facility] Medical, ) COLLECTION VENOUS BLOOD 05/05/2019 MEDG EN ([facility] VENIPUNCTURE 12:00:00 AM [facility], ) Documentation of current 02/02/2019 MED GEN ([facility] medications (procedure) [facility]:00:[facility] OFFICE OUTPATIENT VISIT 10 02/02/2019 Karthik AMEZCUAJamal ([facility] MIN[facility]ES 12:00:00 AM [facility], ) GLUC BLD GLUC MNTR DEV 02/02/2019 MEDGE N ([facility] CLEARED FDA SPEC HOME USE 12:00:00 AM [facility], ) COLLECTION CAPILLARY BLOOD 02/02/2019 Karthik ELENA ([facility] SPECIMEN 12:00:00 AM [facility], ) Documentation of current 02/02/2019 MED GEN ([facility] medications (procedure) [facility]:00:[facility] OFFICE OUTPATIENT VISIT 10 02/02/2019 Karthik AMEZCUAN ([facility]ES 12:00:00 AM EST Medical, ) GLUC BLD GLUC MNTR DEV 02/02/2019 MEDGE N ([facility] CLEARED FDA SPEC HOME USE 12:00:00 AM [facility], ) COLLECTION CAPILLARY BLOOD 02/02/2019 Karthik AMEZCUAN ([facility] SPECIMEN 12:00:00 AM EST Medical, ) Documentation of current 02/02/2019 MED GEN ([facility] medications (procedure) [facility] OFFICE OUTPATIENT VISIT 10 02/02/2019 Karthik AMEZCUAN ([facility]ES 12:00:00 AM EST Medical, ) GLUC BLD GLUC MNTR DEV 02/02/2019 MEDGE N ([facility] CLEARED FDA SPEC HOME USE 12:00:00 AM EST [facility], ) COLLECTION CAPILLARY BLOOD 02/02/2019 Karthik PARKER ([facility] SPECIMEN 12:00:00 AM [facility], ) Documentation of current 02/02/2019 MED GEN ([facility] medications (procedure) 12:00:[address] [facility], ) OFFICE OUTPATIENT VISIT 10 02/02/2019 Karthik PARKER ([facility] MIN[facility]ES 12:00:00 AM [facility], ) GLUC BLD GLUC MNTR DEV 02/02/2019 MEDGE N ([facility] CLEARED FDA SPEC HOME USE 12:00:00 AM [facility], ) COLLECTION CAPILLARY BLOOD 02/02/2019 Karthik PARKER ([facility] SPECIMEN 12:00:00 AM [facility], ) Documentation of current 02/02/2019 MED GEN ([facility] medications (procedure) 12:00:[address] [facility], ) OFFICE OUTPATIENT VISIT 10 02/02/2019 Karthik PARKER ([facility] MIN[facility]ES 12:00:00 AM [facility], ) GLUC BLD GLUC MNTR DEV 02/02/2019 MEDGE N ([facility] CLEARED FDA SPEC HOME USE 12:00:00 AM [facility], ) COLLECTION CAPILLARY BLOOD 02/02/2019 Karthik PARKER ([facility] SPECIMEN 12:00:00 AM [facility], ) Documentation of current 02/02/2019 MED GEN ([facility] medications (procedure) 12:00:[address] [facility], ) OFFICE OUTPATIENT VISIT 10 02/02/2019 Karthik PARKER ([facility] MIN[facility]ES 12:00:00 AM EST Medical, ) GLUC BLD GLUC MNTR DEV 02/02/2019 MEDGE N ([facility] CLEARED FDA SPEC HOME USE 12:00:00 AM EST [facility], ) COLLECTION CAPILLARY BLOOD 02/02/2019 Karthik PARKER ([facility] SPECIMEN 12:00:00 AM [facility], ) Documentation of current 01/04/2019 MED GEN ([facility] of current 01/04/2019 MED GEN ([facility] medications (procedure) 12:00:[address] [facility], ) OFFICE OUTPATIENT VISIT 15 01/04/2019 Karthik EDGEN ([facility] MIN[facility]ES 12:00:00 AM [facility], ) GLUC BLD GLUC MNTR DEV 01/04/2019 MEDGE N ([facility] CLEARED FDA SPEC HOME USE 12:00:00 AM [facility], ) COLLECTION CAPILLARY BLOOD 01/04/2019 Karthik EDGEN ([facility] SPECIMEN 12:00:00 AM [facility], ) Documentation of current 01/04/2019 MED GEN ([facility] medications (procedure) 12:00:[address] [facility], ) Documentation of current 01/04/2019 MED GEN ([facility] medications (procedure) 12:00:[address] [facility], ) OFFICE OUTPATIENT VISIT 15 01/04/2019 Karthik AMEZCUAN ([facility] MIN[facility]ES 12:00:00 AM [facility], ) GLUC BLD GLUC MNTR DEV 01/04/2019 MEDGE N ([facility] CLEARED FDA SPEC HOME USE 12:00:00 AM [facility], ) COLLECTION CAPILLARY BLOOD 01/04/2019 Karthik EDGEN ([facility] SPECIMEN 12:00:00 AM [facility], ) Documentation of current 01/04/2019 MED GEN ([facility] medications (procedure) 12:00:[address] [facility], ) Documentation of current 01/04/2019 MED GEN ([facility] medications (procedure) 12:00:[address] [facility], ) OFFICE OUTPATIENT VISIT 15 01/04/2019 Karthik EDGEN ([facility] MIN[facility]ES 12:00:00 AM [facility], ) GLUC BLD GLUC MNTR DEV 01/04/2019 MEDGE N ([facility] CLEARED FDA SPEC HOME USE 12:00:00 AM [facility], ) COLLECTION CAPILLARY BLOOD 01/04/2019 Karthik EDGEN ([facility] SPECIMEN 12:00:00 AM [facility], ) Documentation of current 01/04/2019 MED GEN ([facility] medications (procedure) 12:00:[address] [facility], ) Documentation of current 01/04/2019 MED GEN ([facility] medications (procedure) 12:00:[address] [facility], ) OFFICE OUTPATIENT VISIT 15 01/04/2019 M EDGEN ([facility] MIN[facility]ES 12:00:00 AM [facility], ) GLUC BLD GLUC MNTR DEV 01/04/2019 MEDGE N ([facility] CLEARED FDA SPEC HOME USE 12:00:00 AM [facility], ) COLLECTION CAPILLARY BLOOD 01/04/2019 M EDGEN ([facility] SPECIMEN 12:00:00 AM [facility], ) Documentation of current 01/04/2019 MED GEN ([facility] medications (procedure) 12:00:[address] [facility], ) Documentation of current 01/04/2019 MED GEN ([facility] medications (procedure) 12:00:[address] [facility], ) OFFICE OUTPATIENT VISIT 15 01/04/2019 M EDGEN ([facility] MIN[facility]ES 12:00:00 AM [facility], ) GLUC BLD GLUC MNTR DEV 01/04/2019 MEDGE N ([facility] CLEARED FDA SPEC HOME USE 12:00:00 AM [facility], ) COLLECTION CAPILLARY BLOOD 01/04/2019 Karthik EDGEN ([facility] SPECIMEN 12:00:00 AM [facility], ) Documentation of current 01/04/2019 MED GEN ([facility] medications (procedure) 12:00:[address] [facility], ) Documentation of current 01/04/2019 MED GEN ([facility] medications (procedure) 12:00:[address] [facility], ) OFFICE OUTPATIENT VISIT 15 01/04/2019 Karthik EDGEN ([facility] MIN[facility]ES 12:00:00 AM [facility], ) GLUC BLD GLUC MNTR DEV 01/04/2019 MEDGE N ([facility] CLEARED FDA SPEC HOME USE 12:00:00 AM [facility], ) COLLECTION CAPILLARY BLOOD 01/04/2019 M EDGEN ([facility] SPECIMEN 12:00:00 AM [facility], ) Documentation of current 12/14/2018 MED GEN ([facility] medications (procedure) 12:00:[address] [facility], ) OFFICE OUTPATIENT VISIT 15 12/14/2018 M EDGEN ([facility] MIN[facility]ES 12:00:00 AM [facility], ) INFLUENZA VACCINE 12/14/2018 [facility] IM[facility]M PRQ ID SUBQ/IM NJXS 12/14/2018 ME DGEN ([facility] 1 VACCINE [facility] Documentation of current 12/14/2018 MED GEN ([facility] medications (procedure) 12:00:[address] [facility], ) OFFICE OUTPATIENT VISIT 15 12/14/2018 Karthik AMEZCUAN ([facility] MIN[facility]ES 12:00:00 AM [facility], ) INFLUENZA VACCINE 12/14/2018 MEDGEN ([facility] IMADM PRQ ID SUBQ/IM NJXS 12/14/2018 ME DGEN ([facility] 1 VACCINE 12:00:00 AM [facility], ) Documentation of current 12/14/2018 MED GEN ([facility] medications (procedure) 12:00:[address] [facility], ) OFFICE OUTPATIENT VISIT 15 12/14/2018 Karthik PARKER ([facility] MIN[facility]ES 12:00:00 AM [facility], ) INFLUENZA VACCINE 12/14/2018 MEDGEN ([facility] 12:00:00 AM [facility], ) IMADM PRQ ID SUBQ/IM NJXS 12/14/2018 ME DGEN ([facility] 1 VACCINE 12:00:00 AM [facility], ) Documentation of current 12/14/2018 MED GEN ([facility] medications (procedure) 12:00:[address] [facility], ) OFFICE OUTPATIENT VISIT 15 12/14/2018 Karthik PARKER ([facility] MIN[facility]ES 12:00:00 AM [facility], ) INFLUENZA VACCINE 12/14/2018 MEDGEN ([facility] IMADM PRQ ID SUBQ/IM NJXS 12/14/2018 ME DGEN ([facility] 1 VACCINE [facility]:00[facility] Documentation of current 12/14/2018 MED GEN ([facility]procedure) [facility]PAT[facility] VISIT 15 12/14/2018 Karthik PARKER ([facility] MIN[facility]ES 12:00:00 AM [facility], ) INFLUENZA VACCINE 12/14/2018 MEDGEN ([facility] 12:00:00 AM [facility], ) IMADM PRQ ID SUBQ/IM NJXS 12/14/2018 ME DGEN ([facility] 1 VACCINE 12:00:00 AM [facility], ) Documentation of current 12/14/2018 MED GEN ([facility] medications (procedure) 12:00:00 AM [facility]) OFFICE OUTPATIENT VISIT 15 12/14/2018 Karthik PARKER ([facility] MIN[facility]ES 12:00:00 AM [facility], ) INFLUENZA VACCINE 12/14/2018 MEDGEN ([facility] 12:00:00 AM [facility], ) IMADM PRQ ID SUBQ/IM NJXS 12/14/2018 ME DGEN ([facility] 1 VACCINE 12:00:00 AM [facility], ) Documentation of current 11/02/2018 MED GEN ([facility] medications (procedure) 12:00:00 AM [facility]) Documentation of current 11/02/2018 MED GEN ([facility] medications (procedure) 12:00:00 AM [facility]) OFFICE OUTPATIENT VISIT 15 11/02/2018 Karthik ELENA ([facility] MIN[facility]ES 12:00:00 AM [facility], ) GLUC BLD GLUC MNTR DEV 11/02/2018 MEDGE N ([facility] CLEARED FDA SPEC HOME USE 12:00:00 AM [facility], ) COLLECTION CAPILLARY BLOOD 11/02/2018 Karthik PARKER ([facility] SPECIMEN 12:00:00 AM [facility]) COLLECTION VENOUS BLOOD 11/02/2018 MEDG EN ([facility] VENIPUNCTURE 12:00:00 AM [facility], ) Documentation of current 11/02/2018 MED GEN ([facility] medications (procedure) 12:00:00 AM [facility]) Documentation of current 11/02/2018 MED GEN ([facility] medications (procedure) 12:00:00 AM [facility]) OFFICE OUTPATIENT VISIT 15 11/02/2018 Karthik AMEZCUAJamal ([facility] MIN[facility]ES 12:00:00 AM [facility], ) GLUC BLD GLUC MNTR DEV 11/02/2018 MEDGE N ([facility] CLEARED FDA SPEC HOME USE 12:00:00 AM EDT [facility], ) COLLECTION CAPILLARY BLOOD 11/02/2018 M EDGEN ([facility] SPECIMEN 12:00:00 AM EDT [facility], ) COLLECTION VENOUS BLOOD 11/02/2018 MEDG EN ([facility] VENIPUNCTURE 12:00:00 AM [facility], ) Documentation of current 11/02/2018 MED GEN ([facility] medications (procedure) 12:00:[address] [facility], ) Documentation of current 11/02/2018 MED GEN ([facility] medications (procedure) 12:00:[address] [facility], ) OFFICE OUTPATIENT VISIT 15 11/02/2018 Karthik AMEZCUAN ([facility] MIN[facility]ES 12:00:00 AM [facility], ) GLUC BLD GLUC MNTR DEV 11/02/2018 MEDGE N ([facility] CLEARED FDA SPEC HOME USE 12:00:00 AM [facility], ) COLLECTION CAPILLARY BLOOD 11/02/2018 Karthik AMEZCUAN ([facility] SPECIMEN 12:00:00 AM [facility], ) COLLECTION VENOUS BLOOD 11/02/2018 MEDG EN ([facility] VENIPUNCTURE 12:00:00 AM [facility], ) Documentation of current 11/02/2018 MED GEN ([facility] medications (procedure) 12:00:[address] [facility], ) Documentation of current 11/02/2018 MED GEN ([facility] medications (procedure) 12:00:[address] [facility], ) OFFICE OUTPATIENT VISIT 15 11/02/2018 Karthik AMEZCUAN ([facility] MIN[facility]ES 12:00:00 AM [facility], ) GLUC BLD GLUC MNTR DEV 11/02/2018 MEDGE N ([facility] CLEARED FDA SPEC HOME USE 12:00:00 AM EDT [facility], ) COLLECTION CAPILLARY BLOOD 11/02/2018 Karthik EDGEN ([facility] SPECIMEN 12:[facility] COLLECTION VENOUS BLOOD 11/02/2018 MEDG EN ([facility] VENIPUNCTURE 12:00[facility] Documentation of current 11/02/2018 MED GEN ([facility] medications (procedure) 12:00:[address] [facility], ) Documentation of current 11/02/2018 MED GEN ([facility] medications (procedure) 12:00:[address] [facility], ) Documentation of current 11/02/2018 MED GEN ([facility] medications (procedure) 12:00:00 AM [facility]) Documentation of current 11/02/2018 MED GEN ([facility] medications (procedure) 12:00:[address] [facility], ) OFFICE OUTPATIENT VISIT 15 11/02/2018 Karthik EDGEN ([facility] MIN[facility]ES 12:00:00 AM [facility], ) GLUC BLD GLUC MNTR DEV 11/02/2018 MEDGE N ([facility] CLEARED FDA SPEC HOME USE 12:00:00 AM [facility], ) COLLECTION CAPILLARY BLOOD 11/02/2018 Karthik AMEZCUAN ([facility] SPECIMEN 12:00:00 AM [facility]) COLLECTION VENOUS BLOOD 11/02/2018 MEDG EN ([facility] VENIPUNCTURE 12:00:00 AM [facility], ) OFFICE OUTPATIENT VISIT 15 11/02/2018 Karthik AMEZCUAN ([facility] MIN[facility]ES 12:00:00 AM [facility]) GLUC BLD GLUC MNTR DEV 11/02/2018 MEDGE N ([facility] CLEARED FDA SPEC HOME USE 12:00:00 AM [facility], ) COLLECTION CAPILLARY BLOOD 11/02/2018 Karthik AMEZCUAN ([facility] SPECIMEN 12:00:00 AM [facility], ) COLLECTION VENOUS BLOOD 11/02/2018 MEDG EN ([facility] VENIPUNCTURE 12:00:00 AM [facility], ) Documentation of current 08/25/2018 MED GEN ([facility] medications (procedure) 12:00:[address] [facility], ) OFFICE OUTPATIENT VISIT 15 08/25/2018 Karthik EDGEN ([facility] MIN[facility]ES 12:00:00 AM [facility], ) GLUC BLD GLUC MNTR DEV 08/25/2018 MEDGE N ([facility] CLEARED FDA SPEC HOME USE 12:00:00 AM [facility], ) COLLECTION CAPILLARY BLOOD 08/25/2018 Karthik AMEZCUAN ([facility] SPECIMEN 12:00:00 AM [facility], ) Documentation of current 08/25/2018 MED GEN ([facility] medications (procedure) 12:00:[address] [facility], ) OFFICE OUTPATIENT VISIT 15 08/25/2018 Karthik EDGEN ([facility] MIN[facility]ES 12:00:00 AM [facility], ) GLUC BLD GLUC MNTR DEV 08/25/2018 MEDGE N ([facility] CLEARED FDA SPEC HOME USE 12:00:00 AM [facility], ) COLLECTION CAPILLARY BLOOD 08/25/2018 Karthik EDGEN ([facility] SPECIMEN 12:00:00 AM [facility], ) Documentation of current 08/25/2018 MED GEN ([facility] medications (procedure) 12:00:[address] [facility], ) OFFICE OUTPATIENT VISIT 15 08/25/2018 Karthik EDGEN ([facility] MIN[facility]ES 12:00:00 AM [facility], ) GLUC BLD GLUC MNTR DEV 08/25/2018 MEDGE N ([facility] CLEARED FDA SPEC HOME USE 12:00:00 AM [facility], ) COLLECTION CAPILLARY BLOOD 08/25/2018 Karthik AMEZCUAN ([facility] SPECIMEN 12:00:00 AM [facility], ) Documentation of current 08/25/2018 MED GEN ([facility] medications (procedure) 12:00:[address] [facility], ) OFFICE OUTPATIENT VISIT 15 08/25/2018 Karthik EDGEN ([facility] MINUTES 12:00:00 AM [facility], ) GLUC BLD GLUC MNTR DEV 08/25/2018 MEDGE N ([facility] CLEARED FDA SPEC HOME USE 12:00:00 AM [facility], ) COLLECTION CAPILLARY BLOOD 08/25/2018 Karthik AMEZCUAN ([facility] SPECIMEN 12:00:00 AM [facility], ) Documentation of current 08/25/2018 MED GEN ([facility] medications (procedure) 12:00:[address] [facility], ) OFFICE OUTPATIENT VISIT 15 08/25/2018 Karthik EDGEN ([facility] MINUTES 12:00:00 AM [facility], ) GLUC BLD GLUC MNTR DEV 08/25/2018 MEDGE N ([facility] CLEARED FDA SPEC HOME USE 12:00:00 AM [facility], ) COLLECTION CAPILLARY BLOOD 08/25/2018 Karthik EDGEN ([facility] SPECIMEN 12:00:00 AM [facility], ) Documentation of current 08/25/2018 MED GEN ([facility] medications (procedure) 12:00:[address] [facility], ) OFFICE OUTPATIENT VISIT 15 08/25/2018 Karthik PARKER ([facility] MINUTES 12:00:00 AM [facility], ) GLUC BLD GLUC MNTR DEV 08/25/2018 MEDGE N ([facility] CLEARED FDA SPEC HOME USE 12:00:00 AM [facility], ) COLLECTION CAPILLARY BLOOD 08/25/2018 Karthik AMEZCUAN ([facility] SPECIMEN 12:00:00 AM [facility], ) Documentation of current 07/30/2018 MED GEN ([facility] medications (procedure) 12:00:[address] [facility], ) Documentation of current 07/30/2018 MED GEN ([facility] medications (procedure) 12:00:[address] [facility], ) OFFICE OUTPATIENT VISIT 25 07/30/2018 Karthik PARKER ([facility] MINUTES 12:00:00 AM [facility], ) GLUC BLD GLUC MNTR DEV 07/30/2018 MEDGE N ([facility] CLEARED FDA SPEC HOME USE 12:00:00 AM [facility], ) COLLECTION CAPILLARY BLOOD 07/30/2018 Karthik AMEZCUAN ([facility] SPECIMEN 12:00:00 AM [facility], ) Documentation of current 07/30/2018 MED GEN ([facility] medications (procedure) 12:00:[address] [facility], ) Documentation of current 07/30/2018 MED GEN ([facility] medications (procedure) 12:00:[address] [facility], ) OFFICE OUTPATIENT VISIT 25 07/30/2018 Karthik AMEZCUAN ([facility] MINUTES 12:00:00 AM [facility], ) GLUC BLD GLUC MNTR DEV 07/30/2018 MEDGE N ([facility] CLEARED FDA SPEC HOME USE 12:00:00 AM [facility], ) COLLECTION CAPILLARY BLOOD 07/30/2018 Karthik AMEZCUAN ([facility] SPECIMEN 12:00:00 AM [facility], ) Documentation of current 07/30/2018 MED GEN ([facility] medications (procedure) 12:00:[address] [facility], ) Documentation of current 07/30/2018 MED GEN ([facility] medications (procedure) 12:00:[address] [facility], ) OFFICE OUTPATIENT VISIT 25 07/30/2018 Karthik AMEZCUAN ([facility] MINUTES 12:00:00 AM [facility], ) GLUC BLD GLUC MNTR DEV 07/30/2018 MEDGE N ([facility] CLEARED FDA SPEC HOME USE 12:00:00 AM [facility], ) COLLECTION CAPILLARY BLOOD 07/30/2018 Karthik AMEZCUAN ([facility] SPECIMEN 12:00:00 AM [facility], ) Documentation of current 07/30/2018 MED GEN ([facility] medications (procedure) 12:00:[address] [facility], ) Documentation of current 07/30/2018 MED GEN ([facility] medications (procedure) 12:00:[address] [facility], ) OFFICE OUTPATIENT VISIT 07/30/2018 Karthik PARKER ([facility] MINUTES 12:00:00 AM [facility], ) GLUC BLD GLUC MNTR DEV 07/30/2018 MEDGE N ([facility] CLEARED FDA SPEC HOME USE 12:00:00 AM [facility], ) COLLECTION CAPILLARY BLOOD 07/30/2018 Karthik AMEZCUAN ([facility] SPECIMEN 12:00:00 AM [facility], ) Documentation of current 07/30/2018 MED GEN ([facility] medications (procedure) 12:00:[address] [facility], ) Documentation of current 07/30/2018 MED GEN ([facility] medications (procedure) 12:00:[address] [facility], ) OFFICE OUTPATIENT VISIT 25 07/30/2018 Karthik AMEZCUAN ([facility] MINUTES 12:00:00 AM [facility], ) GLUC BLD GLUC MNTR DEV 07/30/2018 MEDGE N ([facility] CLEARED FDA SPEC HOME USE 12:00:00 AM [facility], ) COLLECTION CAPILLARY BLOOD 07/30/2018 Karthik AMEZCUAN ([facility] SPECIMEN 12:00:00 AM [facility], ) Documentation of current 07/30/2018 MED GEN ([facility] medications (procedure) 12:00:[address] [facility], ) Documentation of current 07/30/2018 MED GEN ([facility] medications (procedure) 12:00:[address] [facility], ) OFFICE OUTPATIENT VISIT 25 07/30/2018 Karthik PARKER ([facility] MINUTES 12:00:00 AM [facility], ) GLUC BLD GLUC MNTR DEV 07/30/2018 MEDGE N ([facility] CLEARED FDA SPEC HOME USE 12:00:00 AM [facility], ) COLLECTION CAPILLARY BLOOD 07/30/2018 Karthik PARKER ([facility] SPECIMEN 12:00:00 AM [facility], ) Documentation of current 07/16/2018 MED GEN ([facility]'s medications (procedure) 12:00:[address] [facility], ) OFFICE OUTPATIENT VISIT 15 07/16/2018 Karthik PARKER ([facility] MINUTES 12:00:00 AM [facility], ) GLUC BLD GLUC MNTR DEV 07/16/2018 MEDGE N ([facility] CLEARED FDA SPEC HOME USE 12:00:00 AM [facility], ) COLLECTION CAPILLARY BLOOD 07/16/2018 Karthik PARKER ([facility] SPECIMEN 12:00:00 AM [facility], ) Documentation of current 07/16/2018 MED GEN ([facility]'s medications (procedure) 12:00:[address] [facility], ) OFFICE OUTPATIENT VISIT 15 07/16/2018 Karthik PARKER ([facility] MINUTES 12:00:00 AM [facility], ) GLUC BLD GLUC MNTR DEV 07/16/2018 MEDGE N ([facility] CLEARED FDA SPEC HOME USE 12:00:00 AM [facility], ) COLLECTION CAPILLARY BLOOD 07/16/2018 Karthik PARKER ([facility] SPECIMEN 12:00:00 AM [facility], ) Documentation of current 07/16/2018 MED GEN ([facility]'s medications (procedure) 12:00:[address] [facility], ) OFFICE OUTPATIENT VISIT 15 07/16/2018 Karthik PARKER ([facility] MINUTES 12:00:00 AM [facility], ) GLUC BLD GLUC MNTR DEV 07/16/2018 MEDGE N ([facility] CLEARED FDA SPEC HOME USE 12:00:00 AM [facility], ) COLLECTION CAPILLARY BLOOD 07/16/2018 Karthik PARKER ([facility] SPECIMEN 12:00:00 AM [facility], ) Documentation of current 07/16/2018 MED GEN ([facility] medications (procedure) 12:00:[address] [facility], ) OFFICE OUTPATIENT VISIT 15 07/16/2018 Karthik PARKER ([facility] MINUTES 12:00:00 AM [facility], ) GLUC BLD GLUC MNTR DEV 07/16/2018 MEDGE N ([facility] CLEARED FDA SPEC HOME USE 12:00:00 AM [facility], ) COLLECTION CAPILLARY BLOOD 07/16/2018 Karthik PARKER ([facility] SPECIMEN 12:00:00 AM [facility], ) Documentation of current 07/16/2018 MED GEN ([facility] medications (procedure) 12:00:[address] [facility], ) OFFICE OUTPATIENT VISIT 15 07/16/2018 Karthik PARKER ([facility] MINUTES 12:00:00 AM [facility], ) GLUC BLD GLUC MNTR DEV 07/16/2018 MEDGE N ([facility] CLEARED FDA SPEC HOME USE 12:00:00 AM [facility], ) COLLECTION CAPILLARY BLOOD 07/16/2018 Karthik PARKER ([facility] SPECIMEN 12:00:00 AM [facility], ) Documentation of current 07/16/2018 MED GEN ([facility] medications (procedure) 12:00:[address] [facility], ) OFFICE OUTPATIENT VISIT 15 07/16/2018 Karthik PARKER ([facility] MINUTES 12:00:00 AM [facility], ) GLUC BLD GLUC MNTR DEV 07/16/2018 MEDGE N ([facility] CLEARED FDA SPEC HOME USE 12:00:00 AM [facility], ) COLLECTION CAPILLARY BLOOD 07/16/2018 Karthik PARKER ([facility] SPECIMEN 12:00:00 AM [facility], ) Documentation of current 06/23/2018 MED GEN ([facility] medications (procedure) 12:00:[address] [facility], ) Documentation of current 06/23/2018 MED GEN ([facility] medications (procedure) 12:00:[address] [facility], ) OFFICE OUTPATIENT VISIT 25 06/23/2018 Karthik PARKER ([facility] MINUTES 12:00:00 AM [facility], ) Documentation of current 06/23/2018 MED GEN ([facility] medications (procedure) 12:00:[address] [facility]) Documentation of current 06/23/2018 MED GEN ([facility] medications (procedure) 12:00:00 AM EDT [facility]) OFFICE OUTPATIENT VISIT 25 06/23/2018 Karthik PARKER ([facility] MINUTES 12:00:00 AM EDT [facility]) Documentation of current 06/23/2018 MED GEN ([facility] medications (procedure) 12:00:00 AM EDT [facility]) Documentation of current 06/23/2018 MED GEN ([facility] medications (procedure) 12:00:00 AM EDT [facility]) OFFICE OUTPATIENT VISIT 25 06/23/2018 Karthik PARKER ([facility] MINUTES 12:00:00 AM EDT [facility]) Documentation of current 06/23/2018 MED GEN ([facility] medications (procedure) 12:00:00 AM EDT [facility]) Documentation of current 06/23/2018 MED GEN ([facility] medications (procedure) 12:00:00 AM EDT [facility]) OFFICE OUTPATIENT VISIT 25 06/23/2018 Karthik PARKER ([facility] MINUTES 12:00:00 AM EDT [facility]) Documentation of current 06/23/2018 MED GEN ([facility] medications (procedure) 12:00:00 AM EDT [facility]) Documentation of current 06/23/2018 MED GEN ([facility] medications (procedure) 12:00:00 AM EDT [facility]) OFFICE OUTPATIENT VISIT 25 06/23/2018 Karthik PARKER ([facility] MINUTES 12:00:00 AM EDT [facility]) Documentation of current 06/23/2018 MED GEN ([facility] medications (procedure) 12:00:00 AM EDT [facility]) Documentation of current 06/23/2018 MED GEN ([facility] medications (procedure) 12:00:00 AM EDT [facility]) OFFICE OUTPATIENT VISIT 25 06/23/2018 Karthik PARKER ([facility] MINUTES 12:00:00 AM EDT [facility]) Documentation of current 05/19/2018 MED GEN ([facility] medications (procedure) 12:00:00 AM EST [facility]) OFFICE OUTPATIENT VISIT 15 05/19/2018 Karthik PARKER ([facility] MINUTES 12:00:00 AM EST [facility]) GLUC BLD GLUC MNTR DEV 05/19/2018 MEDGE N ([facility] CLEARED FDA SPEC HOME USE 12:00:00 AM [facility], ) COLLECTION CAPILLARY BLOOD 05/19/2018 Karthik PARKER ([facility] SPECIMEN 12:00:00 AM [facility], ) Documentation of current 05/19/2018 MED GEN ([facility] medications (procedure) 12:00:[address] [facility], ) OFFICE OUTPATIENT VISIT 15 05/19/2018 Karthik PARKER ([facility] MINUTES 12:00:00 AM [facility], ) GLUC BLD GLUC MNTR DEV 05/19/2018 MEDGE N ([facility] CLEARED FDA SPEC HOME USE 12:00:00 AM [facility], ) COLLECTION CAPILLARY BLOOD 05/19/2018 Karthik PARKER ([facility] SPECIMEN 12:00:00 AM [facility], ) Documentation of current 05/19/2018 MED GEN ([facility] medications (procedure) 12:00:[address] [facility], ) OFFICE OUTPATIENT VISIT 15 05/19/2018 Karthik PARKER ([facility] MINUTES 12:00:00 AM [facility], ) GLUC BLD GLUC MNTR DEV 05/19/2018 MEDGE N ([facility] CLEARED FDA SPEC HOME USE 12:00:00 AM [facility], ) COLLECTION CAPILLARY BLOOD 05/19/2018 Karthik PARKER ([facility] SPECIMEN 12:00:00 AM [facility], ) Documentation of current 05/19/2018 MED GEN ([facility] medications (procedure) 12:00:[address] [facility], ) OFFICE OUTPATIENT VISIT 15 05/19/2018 Karthik PARKER ([facility] MINUTES 12:00:00 AM [facility], ) GLUC BLD GLUC MNTR DEV 05/19/2018 MEDGE N ([facility] CLEARED FDA SPEC HOME USE 12:00:00 AM [facility], ) COLLECTION CAPILLARY BLOOD 05/19/2018 Karthik PARKER ([facility] SPECIMEN 12:00:00 AM [facility], ) Documentation of current 05/19/2018 MED GEN ([facility] medications (procedure) 12:00:[address] [facility], ) OFFICE OUTPATIENT VISIT 15 05/19/2018 Karthik PARKER ([facility] MINUTES 12:00:00 AM [facility], ) GLUC BLD GLUC MNTR DEV 05/19/2018 MEDGE N ([facility] CLEARED FDA SPEC HOME USE 12:00:00 AM [facility], ) COLLECTION CAPILLARY BLOOD 05/19/2018 Karthik PARKER ([facility] SPECIMEN 12:00:00 AM [facility]) Documentation of current 05/19/2018 MED GEN ([facility]'s medications (procedure) 12:00:00 AM [facility]) OFFICE OUTPATIENT VISIT 15 05/19/2018 Karthik AMEZCUAJamal ([facility] MINUTES 12:00:00 AM [facility]) GLUC BLD GLUC MNTR DEV 05/19/2018 MEDGE N ([facility] CLEARED FDA SPEC HOME USE 12:00:00 AM [facility], ) COLLECTION CAPILLARY BLOOD 05/19/2018 Karthik PARKER ([facility] SPECIMEN 12:00:00 AM [facility]) Documentation of current 05/04/2018 MED GEN ([facility]'s medications (procedure) 12:00:00 AM [facility]) OFFICE OUTPATIENT VISIT 25 05/04/2018 Karthik PARKER ([facility] MINUTES 12:00:00 AM [facility]) ECG ROUTINE ECG W/LEAST 12 05/04/2018 Karthik ELENA ([facility] LDS W/I&R 12:00:00 AM [facility]) INFLUENZA VACCINE 05/04/2018 MEDGEN ([facility]'s 12:00:00 AM [facility]) IMADM PRQ ID SUBQ/IM NJXS 05/04/2018 ME DGEN ([facility]'s 1 VACCINE 12:00:00 AM [facility]) GLUC BLD GLUC MNTR DEV 05/04/2018 MEDGE N ([facility] CLEARED FDA SPEC HOME USE 12:00:00 AM [facility]) COLLECTION CAPILLARY BLOOD 05/04/2018 Karthik PARKER ([facility] SPECIMEN 12:00:00 AM [facility]) COLLECTION VENOUS BLOOD 05/04/2018 MEDG EN ([facility] VENIPUNCTURE 12:00:00 AM [facility]) Documentation of current 05/04/2018 MED GEN ([facility]'s medications (procedure) 12:00:00 AM [facility]) OFFICE OUTPATIENT VISIT 25 05/04/2018 Karthik AMEZCUAJamal ([facility] MINUTES 12:00:00 AM [facility], ) ECG ROUTINE ECG W/LEAST 12 05/04/2018 M EDGEN ([facility] LDS W/I&R 12:00:00 AM [facility], ) INFLUENZA VACCINE 05/04/2018 MEDGEN ([facility]'s 12:00:00 AM [facility], ) IMADM PRQ ID SUBQ/IM NJXS 05/04/2018 ME DGEN ([facility]'s 1 VACCINE 12:00:00 AM [facility], ) GLUC BLD GLUC MNTR DEV 05/04/2018 MEDGE N ([facility] CLEARED FDA SPEC HOME USE 12:00:00 AM [facility], ) COLLECTION CAPILLARY BLOOD 05/04/2018 Karthik EDGEN ([facility] SPECIMEN 12:00:00 AM [facility], ) COLLECTION VENOUS BLOOD 05/04/2018 MEDG EN ([facility] VENIPUNCTURE 12:00:00 AM [facility], ) Documentation of current 05/04/2018 MED GEN ([facility]'s medications (procedure) 12:00:00 AM [facility]) OFFICE OUTPATIENT VISIT 05/04/2018 Karthik EDGEN ([facility] MINUTES 12:00:00 AM [facility], ) ECG ROUTINE ECG W/LEAST 12 05/04/2018 Karthik AMEZCUAN ([facility] LDS W/I&R 12:00:00 AM [facility], ) INFLUENZA VACCINE 05/04/2018 MEDGEN ([facility]'s 12:00:00 AM [facility], ) IMADM PRQ ID SUBQ/IM NJXS 05/04/2018 ME DGEN ([facility]'s 1 VACCINE 12:00:00 AM [facility], ) GLUC BLD GLUC MNTR DEV 05/04/2018 MEDGE N ([facility] CLEARED FDA SPEC HOME USE 12:00:00 AM [facility], ) COLLECTION CAPILLARY BLOOD 05/04/2018 Karthik EDGEN ([facility] SPECIMEN 12:00:00 AM [facility], ) COLLECTION VENOUS BLOOD 05/04/2018 MEDG EN ([facility] VENIPUNCTURE 12:00:00 AM [facility], ) Documentation of current 05/04/2018 MED GEN ([facility]'s medications (procedure) 12:00:00 AM [facility]) OFFICE OUTPATIENT VISIT 05/04/2018 Karthik EDGEN ([facility] MINUTES 12:00:00 AM [facility], ) ECG ROUTINE ECG W/LEAST 12 05/04/2018 Karthik AMEZCUAN ([facility] LDS W/I&R 12:00:00 AM [facility], ) INFLUENZA VACCINE 05/04/2018 MEDGEN ([facility]'s 12:00:00 AM [facility], ) IMADM PRQ ID SUBQ/IM NJXS 05/04/2018 ME DGEN ([facility]'s 1 VACCINE 12:00:00 AM [facility], ) GLUC BLD GLUC MNTR DEV 05/04/2018 MEDGE N ([facility] CLEARED FDA SPEC HOME USE 12:00:00 AM [facility], ) COLLECTION CAPILLARY BLOOD 05/04/2018 Karthik PARKER ([facility] SPECIMEN 12:00:00 AM [facility], ) COLLECTION VENOUS BLOOD 05/04/2018 MEDG EN ([facility] VENIPUNCTURE 12:00:00 AM [facility], ) Documentation of current 05/04/2018 MED GEN ([facility]'s medications (procedure) 12:00:00 AM [facility]) OFFICE OUTPATIENT VISIT 05/04/2018 Karthik PARKER ([facility] MINUTES 12:00:00 AM [facility], ) ECG ROUTINE ECG W/LEAST 12 05/04/2018 Karthik PARKER ([facility] LDS W/I&R 12:00:00 AM [facility], ) INFLUENZA VACCINE 05/04/2018 MEDGEN ([facility]'s 12:00:00 AM [facility], ) IMADM PRQ ID SUBQ/IM NJXS 05/04/2018 ME DGEN ([facility] 1 VACCINE 12:00:00 AM [facility], ) GLUC BLD GLUC MNTR DEV 05/04/2018 MEDGE N ([facility] CLEARED FDA SPEC HOME USE 12:00:00 AM [facility], ) COLLECTION CAPILLARY BLOOD 05/04/2018 Karthik PARKER ([facility] SPECIMEN 12:00:00 AM [facility], ) COLLECTION VENOUS BLOOD 05/04/2018 MEDG EN ([facility] VENIPUNCTURE 12:00:00 AM [facility], ) Documentation of current 05/04/2018 MED GEN ([facility]'s medications (procedure) 12:00:00 AM [facility]) OFFICE OUTPATIENT VISIT 05/04/2018 Karthik PARKER ([facility] MINUTES 12:00:00 AM [facility], ) ECG ROUTINE ECG W/LEAST 12 05/04/2018 Karthik PARKER ([facility] LDS W/I&R 12:00:00 AM [facility], ) INFLUENZA VACCINE 05/04/2018 MEDGEN ([facility]'s 12:00:00 AM [facility], ) IMADM PRQ ID SUBQ/IM NJXS 05/04/2018 ME DGEN ([facility]'s 1 VACCINE 12:00:00 AM [facility], ) GLUC BLD GLUC MNTR DEV 05/04/2018 MEDGE N ([facility] CLEARED FDA SPEC HOME USE 12:00:00 AM [facility], ) COLLECTION CAPILLARY BLOOD 05/04/2018 Karthik PARKER ([facility] SPECIMEN 12:00:00 AM [facility]) COLLECTION VENOUS BLOOD 05/04/2018 MEDG EN ([facility] VENIPUNCTURE 12:00:00 AM [facility], ) Documentation of current 04/08/2017 MED GEN ([facility]'s medications (procedure) 12:00:00 AM [facility]) OFFICE OUTPATIENT VISIT 25 04/08/2017 Karthik PARKER ([facility] MINUTES 12:00:00 AM [facility], ) GLUC BLD GLUC MNTR DEV 04/08/2017 MEDGE N ([facility] CLEARED FDA SPEC HOME USE 12:00:00 AM [facility], ) COLLECTION VENOUS BLOOD 04/08/2017 MEDG EN ([facility] VENIPUNCTURE 12:00:00 AM [facility], ) Documentation of current 04/08/2017 MED GEN ([facility]'s medications (procedure) 12:00:00 AM [facility]) OFFICE OUTPATIENT VISIT 25 04/08/2017 Karthik PARKER ([facility] MINUTES 12:00:00 AM [facility], ) GLUC BLD GLUC MNTR DEV 04/08/2017 MEDGE N ([facility] CLEARED FDA SPEC HOME USE 12:00:00 AM [facility], ) COLLECTION VENOUS BLOOD 04/08/2017 MEDG EN ([facility] VENIPUNCTURE 12:00:00 AM [facility], ) Documentation of current 04/08/2017 MED GEN ([facility]'s medications (procedure) 12:00:00 AM [facility]) OFFICE OUTPATIENT VISIT 04/08/2017 Karthik PARKER ([facility] MINUTES 12:00:00 AM [facility], ) GLUC BLD GLUC MNTR DEV 04/08/2017 MEDGE N ([facility] CLEARED FDA SPEC HOME USE 12:00:00 AM [facility], ) COLLECTION VENOUS BLOOD 04/08/2017 MEDG EN ([facility] VENIPUNCTURE 12:00:00 AM [facility], ) Documentation of current 04/08/2017 MED GEN ([facility]'s medications (procedure) 12:00:[address] [facility], ) OFFICE OUTPATIENT VISIT 04/08/2017 Karthik PARKER ([facility] MINUTES 12:00:00 AM [facility], ) GLUC BLD GLUC MNTR DEV 04/08/2017 MEDGE N ([facility] CLEARED FDA SPEC HOME USE 12:00:00 AM [facility], ) COLLECTION VENOUS BLOOD 04/08/2017 MEDG EN ([facility] VENIPUNCTURE 12:00:00 AM [facility], ) Documentation of current 04/08/2017 MED GEN ([facility]'s medications (procedure) 12:00:[address] [facility], ) OFFICE OUTPATIENT VISIT 04/08/2017 Karthik PARKER ([facility] MINUTES 12:00:00 AM [facility], ) GLUC BLD GLUC MNTR DEV 04/08/2017 MEDGE N ([facility] CLEARED FDA SPEC HOME USE 12:00:00 AM [facility], ) COLLECTION VENOUS BLOOD 04/08/2017 MEDG EN ([facility] VENIPUNCTURE 12:00:00 AM [facility], ) Documentation of current 04/08/2017 MED GEN ([facility]'s medications (procedure) 12:00:[address] [facility], ) OFFICE OUTPATIENT VISIT 04/08/2017 Karthik PARKER ([facility] MINUTES 12:00:00 AM [facility], ) GLUC BLD GLUC MNTR DEV 04/08/2017 MEDGE N ([facility] CLEARED FDA SPEC HOME USE 12:00:00 AM [facility], ) COLLECTION VENOUS BLOOD 04/08/2017 MEDG EN ([facility] VENIPUNCTURE 12:00:00 AM [facility], ) OFFICE OUTPATIENT NEW 30 12/24/2016 MED GEN ([facility] MIN[facility] 12/24/2016 MED GEN ([facility] MINUTES [facility] NEW 12/24/2016 MED GEN ([facility] MINUTES [facility]PAT[facility] NEW 12/24/2016 MED GEN ([facility]'s MINUTES 12:00:00 AM [facility], ) OFFICE OUTPATIENT NEW 12/24/2016 MED GEN ([facility]ley's MINUTES 12:00:00 AM [facility]) OFFICE OUTPATIENT NEW 12/24/2016 MED GEN ([facility]'s MINUTES 12:00:00 AM [facility], ) Documentation of current 12/22/2016 MED GEN ([facility] medications (procedure) 12:00:00 AM [facility]) Influenza virus vaccine, 12/22/2016 MED GEN ([facility]'s split virus, when 12:00:00 AM [facility]) administered to individuals 3 years of age and older, for intramuscular use (flulaval) Administration of 12/22/2016 MEDGEN ([facility] influenza virus vaccine 12:00:00 AM [facility]) OFFICE OUTPATIENT VISIT 15 12/22/2016 Karthik EDGEN ([facility] MINUTES 12:00:00 AM [facility]) GLUC BLD GLUC MNTR DEV 12/22/2016 MEDGE N ([facility] CLEARED FDA SPEC HOME USE 12:00:00 AM [facility]) Documentation of current 12/22/2016 MED GEN ([facility]'s medications (procedure) 12:00:00 AM [facility]) Influenza virus vaccine, 12/22/2016 MED GEN ([facility]'s split virus, when 12:00:00 AM [facility]) administered to individuals 3 years of age and older, for intramuscular use (flulaval) Administration of 12/22/2016 MEDGEN ([facility] influenza virus vaccine 12:00:00 AM [facility]) OFFICE OUTPATIENT VISIT 15 12/22/2016 M EDGEN ([facility]'s MINUTES 12:00:00 AM [facility]) GLUC BLD GLUC MNTR DEV 12/22/2016 MEDGE N ([facility] CLEARED FDA SPEC HOME USE 12:00:00 AM [facility], ) Documentation of current 12/22/2016 MED GEN ([facility]procedure) [facility], 12/22/2016 MED GEN ([facility]'s split virus, when 12:00:00 AM [facility] , ) administered to individuals 3 years of age and older, for intramuscular use (flulaval) Administration of 12/22/2016 MEDGEN ([facility] influenza virus vaccine 12:00:[address] [facility], ) OFFICE OUTPATIENT VISIT 15 12/22/2016 Karthik ELENA ([facility] MINUTES 12:00:00 AM [facility], ) GLUC BLD GLUC MNTR DEV 12/22/2016 MEDGE N ([facility]'s CLEARED FDA SPEC HOME USE 12:00:00 AM [facility], ) Documentation of current 12/22/2016 MED GEN ([facility]'s medications (procedure) 12:00:[address] [facility], ) Influenza virus vaccine, 12/22/2016 MED GEN ([facility] split virus, when 12:00:00 AM [facility] , ) administered to individuals 3 years of age and older, for intramuscular use (flulaval) Administration of 12/22/2016 MEDGEN ([facility] influenza virus vaccine 12:00:[address] [facility], ) OFFICE OUTPATIENT VISIT 15 12/22/2016 Karthik SEVENN ([facility] MINUTES 12:00:00 AM [facility], ) GLUC BLD GLUC MNTR DEV 12/22/2016 MEDGE N ([facility] CLEARED FDA SPEC HOME USE 12:00:00 AM [facility] [facility] Documentation of current 12/22/2016 MED GEN ([facility]'s medications (procedure) 12:00:[address] [facility], ) Influenza virus vaccine, 12/22/2016 MED GEN ([facility]'s split virus, when 12:00:00 AM [facility] , ) administered to individuals 3 years of age and older, for intramuscular use (flulaval) Administration of 12/22/2016 MEDGEN ([facility]'s influenza virus vaccine 12:00:[address] [facility], ) OFFICE OUTPATIENT VISIT 15 12/22/2016 Karthik PARKER ([facility]'s MINUTES 12:00:00 AM EDT Medical, ) GLUC BLD GLUC MNTR DEV 12/22/2016 MEDGE N ([facility]'s CLEARED FDA SPEC HOME USE 12:00:00 AM [facility], ) Documentation of current 12/22/2016 MED GEN ([facility] medications (procedure) [facility] Influenza virus vaccine, 12/22/2016 MED GEN ([facility]ley's split virus, when 12:00:00 AM [facility] , ) administered to individuals 3 years of age and older, for intramuscular use (flulaval) Administration of 12/22/2016 MEDGEN ([facility] influenza virus vaccine 12:00:00 [facility], ) OFFICE OUTPATIENT VISIT 15 12/22/2016 Karthik PARKER ([facility] MINUTES 12:00:00 AM ED Medical, ) GLUC BLD GLUC MNTR DEV 12/22/2016 MEDGE N ([facility]'s CLEARED FDA SPEC HOME USE 12:00:00 AM [facility] Medical, ) Documentation of current 10/20/2016 MED GEN ([facility]'s medications (procedure) 12:00:00 AM [facility], ) Documentation of current 10/20/2016 MED GEN ([facility] medications (procedure) 12:00:00 AM [facility], ) Documentation of current 10/20/2016 MED GEN ([facility]'s medications (procedure) 12:00:00 AM EDT edical, ) Documentation of current 10/20/2016 MED GEN ([facility]'s medications (procedure) 12:00:00 AM EDT edical, ) OFFICE OUTPATIENT VISIT 15 10/20/2016 Karthik PARKER ([facility] MINUTES 12:00:00 AM [facility] Medical, ) Documentation of current 10/20/2016 MED GEN (Bradley's medications (procedure) 12:00:00 AM EDT edical, ) Documentation of current 10/20/2016 MED GEN ([facility]ley's medications (procedure) 12:00:00 AM EDT edical, ) Documentation of current 10/20/2016 MED GEN ([facility]ley's medications (procedure) 12:00:00 AM EDT M edical, PC) Documentation of current 10/20/2016 MED GEN ([facility]ley's medications (procedure) 12:00:00 AM EDT edical, PC) OFFICE OUTPATIENT VISIT 15 10/20/2016 Karthik ELENA ([facility] MINUTES 12:00:00 AM EDT Medical, PC) Documentation of current 10/20/2016 MED GEN ([facility]'s medications (procedure) 12:00:00 AM EDT edical, PC) Documentation of current 10/20/2016 MED GEN ([facility]'s medications (procedure) 12:00:00 AM EDT edical, PC) Documentation of current 10/20/2016 MED GEN ([facility]'s medications (procedure) 12:00:00 AM EDT edical, PC) Documentation of current 10/20/2016 MED GEN ([facility]'s medications (procedure) 12:00:00 AM EDT edical, PC) OFFICE OUTPATIENT VISIT 15 10/20/2016 Karthik PARKER ([facility] MINUTES 12:00:00 AM EDT Medical, PC) Documentation of current 10/20/2016 MED GEN ([facility]'s medications (procedure) 12:00:00 AM EDT edical, PC) Documentation of current 10/20/2016 MED GEN ([facility]'s medications (procedure) 12:00:00 AM EDT edical, PC) Documentation of current 10/20/2016 MED GEN ([facility] medications (procedure) 12:00:00 AM EDT edical, PC) Documentation of current 10/20/2016 MED GEN ([facility]'s medications (procedure) 12:00:00 AM EDT edical, PC) OFFICE OUTPATIENT VISIT 15 10/20/2016 Karthik ELENA ([facility] MINUTES 12:00:00 AM EDT Medical, PC) Documentation of current 10/20/2016 MED GEN ([facility]'s medications (procedure) 12:00:00 AM EDT edical, PC) Documentation of current 10/20/2016 MED GEN ([facility]'s medications (procedure) 12:00:00 AM EDT edical, PC) Documentation of current 10/20/2016 MED GEN ([facility]'s medications (procedure) 12:00:00 AM EDT edical, PC) Documentation of current 10/20/2016 MED GEN ([facility]'s medications (procedure) 12:00:[address] [facility], ) OFFICE OUTPATIENT VISIT 15 10/20/2016 Karthik AMEZCUAN ([facility] MINUTES 12:00:00 AM [facility], ) Documentation of current 10/20/2016 MED GEN ([facility]'s medications (procedure) 12:00:[address] [facility], ) Documentation of current 10/20/2016 MED GEN ([facility]ley's medications (procedure) 12:00:[address] [facility], ) Documentation of current 10/20/2016 MED GEN ([facility]'s medications (procedure) 12:00:[address] [facility], ) Documentation of current 10/20/2016 MED GEN ([facility]'s medications (procedure) 12:00:[address] [facility], ) OFFICE OUTPATIENT VISIT 15 10/20/2016 Karthik PARKER ([facility] MINUTES 12:00:00 AM [facility], ) Documentation of current 10/15/2016 MED GEN ([facility]ley's medications (procedure) 12:00:[address] [facility], ) Documentation of current 10/15/2016 MED GEN ([facility]ley's medications (procedure) 12:00:[address] [facility], ) Documentation of current 10/15/2016 MED GEN ([facility]'s medications (procedure) 12:00:[address] [facility], ) Documentation of current 10/15/2016 MED GEN ([facility]'s medications (procedure) 12:00:[address] [facility], ) OFFICE OUTPATIENT VISIT 15 10/15/2016 Karthik PARKER ([facility] MINUTES 12:00:00 AM [facility], ) ECG ROUTINE ECG W/LEAST 12 10/15/2016 Karthik AMEZCUAN ([facility] LDS W/I&R 12:00:00 AM [facility], ) COLLECTION VENOUS BLOOD 10/15/2016 MEDG EN ([facility] VENIPUNCTURE 12:00:00 AM [facility], ) Documentation of current 10/15/2016 MED GEN ([facility]'s medications (procedure) 12:00:[address] [facility], ) Documentation of current 10/15/2016 MED GEN ([facility]'s medications (procedure) 12:00:[address] [facility], ) Documentation of current 10/15/2016 MED GEN ([facility]'s medications (procedure) 12:00:[address] [facility], ) Documentation of current 10/15/2016 MED GEN ([facility]'s medications (procedure) 12:00:[address] [facility], ) Documentation of current 10/15/2016 MED GEN ([facility]'s medications (procedure) 12:00:[address] [facility], ) Documentation of current 10/15/2016 MED GEN ([facility]'s medications (procedure) 12:00:[address] [facility], ) Documentation of current 10/15/2016 MED GEN ([facility]'s medications (procedure) 12:00:[address] [facility], ) Documentation of current 10/15/2016 MED GEN ([facility]'s medications (procedure) 12:00:[address] [facility], ) OFFICE OUTPATIENT VISIT 15 10/15/2016 Karthik AMEZCUAN ([facility] MINUTES 12:00:00 AM [facility], ) ECG ROUTINE ECG W/LEAST 12 10/15/2016 Karthik PARKER ([facility] LDS W/I&R 12:00:00 AM [facility], ) COLLECTION VENOUS BLOOD 10/15/2016 MEDG EN ([facility] VENIPUNCTURE 12:00:00 AM [facility], ) Documentation of current 10/15/2016 MED GEN ([facility]'s medications (procedure) 12:00:[address] [facility], ) Documentation of current 10/15/2016 MED GEN ([facility]'s medications (procedure) 12:00:[address] [facility], ) Documentation of current 10/15/2016 MED GEN ([facility]'s medications (procedure) 12:00:[address] [facility], ) Documentation of current 10/15/2016 MED GEN ([facility]'s medications (procedure) 12:00:[address] [facility], ) OFFICE OUTPATIENT VISIT 15 10/15/2016 Karthik AMEZCUAN ([facility] MINUTES 12:00:00 AM [facility], ) ECG ROUTINE ECG W/LEAST 12 10/15/2016 Karthik PARKER ([facility] LDS W/I&R 12:00:00 AM [facility], ) COLLECTION VENOUS BLOOD 10/15/2016 MEDG EN ([facility] VENIPUNCTURE 12:00:00 [facility], ) Documentation of current 10/15/2016 MED GEN ([facility]'s medications (procedure) 12:00:[address] [facility], ) Documentation of current 10/15/2016 MED GEN (Bradley's medications (procedure) 12:00:[address] [facility], ) Documentation of current 10/15/2016 MED GEN ([facility]'s medications (procedure) 12:00:[address] [facility], ) Documentation of current 10/15/2016 MED GEN ([facility]'s medications (procedure) 12:00:[address] [facility], ) OFFICE OUTPATIENT VISIT 15 10/15/2016 Karthik EDGEN ([facility] MINUTES 12:00:00 AM [facility], ) ECG ROUTINE ECG W/LEAST 12 10/15/2016 Karthik SEVENN ([facility] LDS W/I&R 12:00:00 AM [facility], ) COLLECTION VENOUS BLOOD 10/15/2016 MEDG EN ([facility] VENIPUNCTURE 12:00:00 AM [facility], ) OFFICE OUTPATIENT VISIT 15 10/15/2016 Karthik EDGEN ([facility] MINUTES 12:00:00 AM [facility], ) ECG ROUTINE ECG W/LEAST 12 10/15/2016 Karthik EDGEN ([facility]'s LDS W/I&R 12:00:00 AM [facility], ) COLLECTION VENOUS BLOOD 10/15/2016 MEDG EN ([facility] VENIPUNCTURE 12:00:00 AM [facility], ) Documentation of current 10/15/2016 MED GEN ([facility]'s medications (procedure) 12:00:[address] [facility], ) Documentation of current 10/15/2016 MED GEN ([facility]'s medications (procedure) 12:00:[address] [facility], ) Documentation of current 10/15/2016 MED GEN ([facility]'s medications (procedure) 12:00:[address] [facility], ) Documentation of current 10/15/2016 MED GEN ([facility]'s medications (procedure) 12:00:[address] [facility], ) OFFICE OUTPATIENT VISIT 15 10/15/2016 Karthik PARKER ([facility] MINUTES 12:00:00 AM EDT Medical, PC) ECG ROUTINE ECG W/LEAST 12 10/15/2016 Karthik PARKER ([facility] LDS W/I&R 12:00:00 AM EDT Medical, PC) COLLECTION VENOUS BLOOD 10/15/2016 MEDG EN ([facility] VENIPUNCTURE 12:00:00 AM EDT Medical, PC) Results ID Date Data Source [id number] 12/01/2019 11:50:00 AM EDT [facility] Name Value Range Interpretation Description Data Sup porting Code Source(s) Document(s ) SARS [facility] coronavirus 2 RNA This lab was ordered by [facility] and reported by [facility]. ID Date Data Source [id number] 11/26/2019 12:10:00 PM EDT [facility] Name Value Range Interpretation Description Data Sup porting Code Source(s) Document(s ) SARS [facility] coronavirus 2 RNA This lab was ordered by [facility] and reported by [facility]. ID Date Data Source [id number] 11/14/2019 11:21:00 AM EDT [facility] Name Value Range Interpretation Code Description Data Sandie rce(s) Supporting Document(s ) SARS-CoV-2 [facility] BY PCR This lab was ordered by JEREMIE CHENG DO and reported by [facility]. ID Date Data Source [id number] 11/03/2019 12:00:00 AM EDT [facility] Name Value Range Interpretation Description Data Sup porting Code Source(s) Document(s ) Antinuclear Negative Normal (applies [facility] (St Antibodies, IFA to non-numeric Ez's results) [facility], PC) ID Date Data Source [id number] 11/03/2019 12:00:00 AM EDT [facility] ([facility] Name Value Range Interpretation Code Description Data Supporting Source(s) Document(s ) PTH, Intact 21 pg/mL Normal (applies to [facility] (S t non-numeric Ez's results) [facility], PC) ID Date Data Source [id number] 11/03/2019 12:00:00 AM EDT [facility] Name Value Range Interpretation Code Description Data Supporting Source(s) Document(s ) HBsAg Negative Normal (applies to [facility] (St Screen non-numeric [facility]'s results) Medical, ) ID Date Data Source [id number] 11/03/2019 12:00:00 AM EDT [facility], ) Name Value Range Interpretation Code Description Data Sandie rce(s) Supporting Document(s ) Uric Acid 6.0 mg/dL Normal (applies to [facility] (St non-numeric Ez's results) [facility], ) ID Date Data Source [id number] 11/03/2019 12:00:00 AM EDT [facility] ([facility] ) Name Value Range Interpretation Code Description Data Supporting Source(s) Document(s ) Hep C 0.3 s/co Normal (applies to [facility] (St Virus Ab ratio non-numeric Ez's results) [facility], ) ID Date Data Source [id number] 11/03/2019 12:00:00 AM EDT [facility], ) Name Value Range Interpretation Code Description Data Sandie rce(s) Supporting Document(s ) NAINA Normal (applies to [facility] (St Interpreta non-numeric results) [facility], tion:U ) ID Date Data Source [id number] 11/03/2019 12:00:00 AM EDT [facility], ) Name Value Range Interpretation Code Description Data Sandie rce(s) Supporting Document(s ) Anti-DNA 1 IU/mL Normal (applies to [facility] (St (DS) Ab Qn non-numeric [facility] results) Medical, ) ID Date Data Source [id number] 11/03/2019 12:00:00 AM EDT [facility], ) Name Value Range Interpretation Description Data Sup porting Code Source(s) Document(s ) HIV Screen Non Normal (applies [facility] (St 4th Reactive to non-numeric Ez's Generation results) [facility], ) wRfx ID Date Data Source [id number] 11/03/2019 12:00:00 AM EDT [facility] Name Value Range Interpretation Description Data Sup porting Code Source(s) Document(s ) Antiglomerular BM 16 units Normal (applies [facility] (St Ab to non-numeric Ez's results) Medical, ) ID Date Data Source [id number] 11/03/2019 12:00:00 AM EDT [facility], ) Name Value Range Interpretation Code Description Data Sandie rce(s) Supporting Document(s ) RA Latex <10.0 Normal (applies to [facility] (St Turbid. non-numeric results) [facility], ) ID Date Data Source [id number] 11/03/2019 12:00:00 AM EDT [facility], ) Name Value Range Interpretation Description Data Sup porting Code Source(s) Document(s ) Complement C3, 137 mg/dL Normal (applies to [facility] (St Serum non-numeric Ez's results) Medical, ) ID Date Data Source [id number] 11/03/2019 12:00:00 AM EDT [facility], ) Name Value Range Interpretation Description Data Sup porting Code Source(s) Document(s ) Complement C4, 32 mg/dL Normal (applies to [facility] (St Serum non-numeric Ez's results) Medical, ) ID Date Data Source [id number] 11/03/2019 12:00:00 AM EDT [facility], ) Name Value Range Interpretation Description Data Sup porting Code Source(s) Document(s ) Free Magee 65.45 mg/L Normal (applies to [facility] (S t Lt non-numeric Ez's Chains,Ur results) Medical, ) Magee/Lambd 1.56 Normal (applies to [facility] (S t a Ratio,U non-numeric Ez's results) Medical, ) Free Lambda 42.08 mg/L Above high normal [facility] (S t Lt [facility] Chains,Ur Medical, ) ID Date Data Source [id number] 11/03/2019 12:00:00 AM EDT [facility], ) Name Value Range Interpretation Description Data Sup porting Code Source(s) Document(s ) Free Magee 81.1 mg/L Above high normal [facility] (St Lt Chains,S [facility], ) Free Lambda 45.6 mg/L Above high normal [facility] (St Lt Chains,S Ez's [facility], ) Magee/Lambd 1.78 Above high normal [facility] (St a Ratio,S [facility], ) ID Date Data Source [id number] 11/03/2019 12:00:00 AM EDT [facility] ([facility] [place] [place]) Name Value Range Interpretation Code Description Data Supporting Source(s) Document(s ) Creatinine 44.5 mg/dL Normal (applies to [facility] (S t , Urine non-numeric Ez's results) [facility], ) Protein/Cr 2845 mg/g Above high normal [facility] (St eat Ratio creat [facility]) ID Date Data Source [id number] 11/03/2019 12:00:00 AM EDT [facility] ([facility] [place] [place]) Name Value Range Interpretation Description Data Sup porting Code Source(s) Document(s ) Immunofixation Normal (applies [facility] (S t Result, Serum to non-numeric Ez's results) [facility], ) Immunoglobulin G, 1418 Normal (applies [facility] (St Qn, Serum mg/dL to non-numeric Ez's results) [facility], ) Immunoglobulin A, 298 Normal (applies [facility] (St Qn, Serum mg/dL to non-numeric Ez's results) [facility]) Immunoglobulin M, 183 Normal (applies MEDGEN (St Qn, Serum mg/dL to non-numeric Ez's results) [facility], ) ID Date Data Source [id number] 11/03/2019 12:00:00 AM EDT [facility] ([facility] [place], ) Name Value Range Interpretation Description Data Sup porting Code Source(s) Document(s ) Iron 271 ug/dL Normal (applies to [facility] (St Bind.Cap.(TIBC non-numeric Ez's ) results) [facility], ) UIBC 196 ug/dL Normal (applies to [facility] (St non-numeric Ez's results) [facility], ) Iron 75 ug/dL Normal (applies to [facility] (St [Mass/volume] non-numeric Ez's in Serum or results) [facility], ) Plasma Iron 28 % Normal (applies to [facility] (St saturation non-numeric Ez's [Mass results) [facility], ) Fraction] in Serum or Plasma ID Date Data Source [id number] 11/03/2019 12:00:00 AM EDT [facility] ([facility] [place] [place]) Name Value Range Interpretation Description Data Sup porting Code Source(s) Document(s ) Protein,To 126.6 mg/dL Normal (applies to [facility] ( St stevan,Urine non-numeric Ez's results) Medical, ) Albumin, U 63.5 % Normal (applies to [facility] (St non-numeric Ez's results) Medical, PC) Alpha-1-Gl 2.8 % Normal (applies to [facility] (St obulin, U non-numeric Ez's results) Medical, PC) Alpha-2-Gl 6.2 % Normal (applies to [facility] (St obulin, U non-numeric Ez's results) Medical, PC) Beta 12.0 % Normal (applies to [facility] (St Globulin, non-numeric Ez's U results) Medical, PC) Gamma 15.5 % Normal (applies to [facility] (St Globulin, non-numeric Ez's U results) Medical, ) M-Brennan, % Not Observed Normal (applies to [facility] (St non-numeric Ez's results) Medical, PC) Please Normal (applies to [facility] (St note: non-numeric Ez's results) Medical, PC) PDF . Normal (applies to [facility] (St non-numeric Ez's results) Medical, ) ID Date Data Source [id number] 11/03/2019 12:00:00 AM EDT [facility] ) Name Value Range Interpretation Description Data Sup porting Code Source(s) Document(s ) Microalbumin 2.9 g/dL Normal (applies [facility] (St [Mass/time] in to non-numeric Ez's Urine collected results) Medical, for unspecified PC) duration Altcc-1-Tqzsilwp 0.2 g/dL Normal (applies [facility] (St to non-numeric Ez's results) Medical, PC) Ygtau-8-Pgmwqnfn 0.8 g/dL Normal (applies [facility] (St to non-numeric Ez's results) Medical, PC) Beta globulin 1.1 g/dL Normal (applies [facility] (St [Mass/volume] in to non-numeric Ez's Urine by results) Medical, Electrophoresis PC) Gamma globulin 1.4 g/dL Normal (applies [facility] (S t [Mass/volume] by to non-numeric Ez's Electrophoresis results) Medical, in Urine PC) collected for unspecified duration M-Brennan Not Normal (applies [facility] (St Observed to non-numeric Ez's results) Medical, ) Globulin, Total 3.5 g/dL Normal (applies [facility]GEN ( St to non-numeric Ez's results) Medical, ) A/G Ratio 0.8 Normal (applies [facility] (St to non-numeric Ez's results) Medical, ) Please note: Normal (applies [facility] (St to non-numeric Ez's results) Medical, ) PDF . Normal (applies [facility] (St to non-numeric Ez's results) Medical, ) ID Date Data Source [id number] 11/03/2019 12:00:00 AM EDT [facility], ) Name Value Range Interpretation Description Data Sup porting Code Source(s) Document(s ) Glucose 277 Above high MEDGEN (St [Mass/volume] in mg/dL normal Ez's Urine collected for Medical, unspecified PC) duration Urea nitrogen 42 mg/dL Above high MEDGEN (St [Mass/volume] in normal Ez's Serum or Plasma Medical, ) Creatinine 1.42 Above high MEDGEN (St [Interpretation] in mg/dL normal Ez's Urine [facility], ) eGFR If NonAfricn 40 Below low normal MEDGE N (St Am mL/min/1 [facility] [address] [place] [address], ) eGFR If Africn Am 46 Below low normal MEDGE N (St mL/min/1 [facility] .73 [facility], ) Sodium 139 Normal (applies MEDGEN (St [Moles/volume] in mmol/L to non-numeric Ez's Serum or Plasma results) Medical, ) BUN/Creatinine 30 Above high MEDGEN (St Ratio normal [facility] Medical, ) Potassium 5.3 Above high MEDGEN (St [Mass/volume] in mmol/L normal Ez's Blood Medical, ) Chloride 103 Normal (applies [facility]GEN (St [Moles/volume] in mmol/L to non-numeric Ez's Serum or Plasma results) Medical, ) Carbon dioxide, 22 Normal (applies [facility] ( St total mmol/L to non-numeric Ez's [Moles/volume] in results) Medical, Serum or Plasma PC) Calcium 9.4 Normal (applies [facility] (St [Moles/volume] in mg/dL to non-numeric Ez's Urine collected for results) Medical, unspecified PC) duration Protein 6.4 g/dL Normal (applies [facility] (St [Mass/volume] in to non-numeric Ez's Serum or Plasma results) Medical, ) Microalbumin 3.6 g/dL Below low normal [facility] (St [Mass/time] in Ez's Urine collected for Medical, unspecified PC) duration Globulin, Total 2.8 g/dL Normal (applies MEDGEN ( St to non-numeric Ez's results) Medical, ) A/G Ratio 1.3 Normal (applies [facility] (St to non-numeric Ez's results) Medical, ) Bilirubin.total 0.3 Normal (applies [facility]GEN ( St [Mass/volume] in mg/dL to non-numeric Ez's Serum or Plasma results) Medical, ) Alkaline 376 IU/L Above high MEDGEN (St phosphatase normal Ez's [Enzymatic Medical, activity/volume] in PC) Serum, Plasma or Blood Aspartate 94 IU/L Above high MEDGEN (St aminotransferase normal Ze's [Enzymatic Medical, activity/volume] in ) Serum or Plasma Alanine 224 IU/L Above high MEDGEN (St aminotransferase normal Ez's [Enzymatic Medical, activity/volume] in PC) Serum or Plasma ID Date Data Source [id number] 11/03/2019 12:00:00 AM EDT [facility], ) Name Value Range Interpretation Description Data Sup porting Code Source(s) Document(s ) Leukocytes 6.6 Normal (applies [facility] (St [#/volume] in x10E3/uL to non-numeric Ez's Blood by results) Medical, ) Automated count Erythrocytes 3.28 Below low normal [facility] (St [#/volume] in x10E6/uL Ez's Blood by Medical, ) Automated count Hemoglobin 9.0 g/dL Below low normal [facility] (St [Mass/volume] in Ez's Blood Medical, ) Hematocrit 27.6 % Below low normal [facility] (St [Volume Ez's Fraction] of Medical, ) Blood by Automated count MCV 84 fL Normal (applies [facility] (St to non-numeric Ez's results) Medical, ) MCH 27.4 pg Normal (applies [facility] (St to non-numeric Ez's results) Medical, ) MCHC 32.6 Normal (applies [facility] (St g/dL to non-numeric Ez's results) [facility], ) RDW 12.7 % Normal (applies [facility] (St to non-numeric Ez's results) [facility], ) Platelets 264 Normal (applies [facility] (St [#/area] in x10E3/uL to non-numeric Ez's Blood by results) [facility], ) Microscopy high power field Neutrophils [#] 46 % Normal (applies [facility] ( St in Body fluid by to non-numeric Ez's Manual count results) [facility], ) Lymphs 43 % Normal (applies [facility] (St to non-numeric Ez's results) [facility], ) Monocytes 8 % Normal (applies [facility] (St [#/volume] in to non-numeric Ez's Cord blood results) [facility], ) Eos 1 % Normal (applies [facility] (St to non-numeric Ez's results) [facility], ) Basos 1 % Normal (applies [facility] (St to non-numeric Ez's results) [facility], ) Neutrophils 3.1 Normal (applies [facility] (St (Absolute) x10E3/uL to non-numeric Ez's results) [facility], ) Lymphs 2.8 Normal (applies [facility] (St (Absolute) x10E3/uL to non-numeric Ez's results) [facility], ) Monocytes(Absolu 0.5 Normal (applies [facility] (St te) x10E3/uL to non-numeric Ez's results) [facility], ) Eos (Absolute) 0.1 Normal (applies MEDGEN (S t x10E3/uL to non-numeric Ez's results) [facility], ) Baso (Absolute) 0.0 Normal (applies MEDGEN ( St x10E3/uL to non-numeric Ez's results) [facility], ) Immature 1 % Normal (applies MEDGEN (St Granulocytes to non-numeric Ez's results) [facility], ) Immature Grans 0.0 Normal (applies MEDGEN (S t (Abs) x10E3/uL to non-numeric Ez's results) [facility], ) ID Date Data Source [id number] 11/03/2019 12:00:00 AM EDT [facility] ([facility], ) Name Value Range Interpretation Description Data Sup porting Code Source(s) Document(s ) Antimyeloperoxidase <9.0 Normal (applies MEDG EN (St (MPO) Abs to non-numeric Ez's results) Medical, ) Antiproteinase 3 <3.5 Normal (applies MEDGEN (St (MO-3) Abs to non-numeric Ez's results) Medical, ) Cytoplasmic (C-ANCA) <1:20 Normal (applies MED GEN (St to non-numeric Ez's results) Medical, ) Perinuclear (P-ANCA) <1:20 Normal (applies MED GEN (St to non-numeric Ez's results) Medical, ) Atypical pANCA <1:20 Normal (applies MEDGEN (S t to non-numeric Ez's results) Medical, ) ID Date Data Source [id number] 11/03/2019 12:00:00 AM EDT [facility] ([facility], ) Name Value Range Interpretation Code Description Data Sandie rce(s) Supporting Document(s ) ID Date Data Source [id number] 11/03/2019 12:00:00 AM EDT [facility] ([facility], ) Name Value Range Interpretation Code Description Data Sandie rce(s) Supporting Document(s ) PDF . Normal (applies to MEDGEN (St non-numeric results) [facility], ) ID Date Data Source [id number] 11/03/2019 12:00:00 AM EDT [facility] ([facility], ) Name Value Range Interpretation Description Data Sup porting Code Source(s) Document(s ) Antinuclear Negative Normal (applies MEDGEN (St Antibodies, IFA to non-numeric Ez's results) Medical, ) ID Date Data Source [id number] 11/03/2019 12:00:00 AM EDT [facility] ([facility], ) Name Value Range Interpretation Code Description Data Supporting Source(s) Document(s ) PTH, Intact 21 pg/mL Normal (applies to MEDGEN (S t non-numeric Ez's results) Medical, ) ID Date Data Source [id number] 11/03/2019 12:00:00 AM EDT [facility] ([facility], ) Name Value Range Interpretation Code Description Data Supporting Source(s) Document(s ) HBsAg Negative Normal (applies to MEDGEN (St Screen non-numeric Ez's results) Medical, ) ID Date Data Source [id number] 11/03/2019 12:00:00 AM EDT [facility] Name Value Range Interpretation Code Description Data Sandie rce(s) Supporting Document(s ) Uric Acid 6.0 mg/dL Normal (applies to MEDGEN (St non-numeric Ez's results) [facility], PC) ID Date Data Source [id number] 11/03/2019 12:00:00 AM EDT [facility] Name Value Range Interpretation Code Description Data Supporting Source(s) Document(s ) Hep C 0.3 s/co Normal (applies to MEDGEN (St Virus Ab ratio non-numeric Ez's results) Medical, ) ID Date Data Source [id number] 11/03/2019 12:00:00 AM EDT [facility] Name Value Range Interpretation Code Description Data Sandie rce(s) Supporting Document(s ) NAINA Normal (applies to MEDGEN (St Interpreta non-numeric results) [facility] M edical, tion:U ) ID Date Data Source [id number] 11/03/2019 12:00:00 AM EDT [facility] Name Value Range Interpretation Code Description Data Sandie rce(s) Supporting Document(s ) Anti-DNA 1 IU/mL Normal (applies to MEDGEN (St (DS) Ab Qn non-numeric Ez's results) Medical, ) ID Date Data Source [id number] 11/03/2019 12:00:00 AM EDT [facility] Name Value Range Interpretation Description Data Sup porting Code Source(s) Document(s ) HIV Screen Non Normal (applies MEDGEN (St 4th Reactive to non-numeric Ez's Generation results) Medical, ) wRfx ID Date Data Source [id number] 11/03/2019 12:00:00 AM EDT [facility] Name Value Range Interpretation Description Data Sup porting Code Source(s) Document(s ) Antiglomerular BM 16 units Normal (applies MEDGEN (St Ab to non-numeric Ez's results) Medical, ) ID Date Data Source [id number] 11/03/2019 12:00:00 AM EDT [facility] Name Value Range Interpretation Code Description Data Sandie rce(s) Supporting Document(s ) RA Latex <10.0 Normal (applies to MEDGEN (St Turbid. non-numeric results) [facility], ) ID Date Data Source [id number] 11/03/2019 12:00:00 AM EDT [facility] ([facility], ) Name Value Range Interpretation Description Data Sup porting Code Source(s) Document(s ) Complement C3, 137 mg/dL Normal (applies to MEDGEN (St Serum non-numeric Ez's results) [facility], ) ID Date Data Source [id number] 11/03/2019 12:00:00 AM EDT [facility] ([facility], ) Name Value Range Interpretation Description Data Sup porting Code Source(s) Document(s ) Complement C4, 32 mg/dL Normal (applies to MEDGEN (St Serum non-numeric Ez's results) [facility], ) ID Date Data Source [id number] 11/03/2019 12:00:00 AM EDT [facility], ) Name Value Range Interpretation Description Data Sup porting Code Source(s) Document(s ) Free Magee 65.45 mg/L Normal (applies to MEDGEN (S t Lt non-numeric Ez's Chains,Ur results) [facility], ) Free Lambda 42.08 mg/L Above high normal MEDGEN (S t Lt Ez's Chains,Ur Medical, ) Magee/Lambd 1.56 Normal (applies to MEDGEN (S t a Ratio,U non-numeric Ez's results) [facility], ) ID Date Data Source [id number] 11/03/2019 12:00:00 AM EDT [facility] ([facility], ) Name Value Range Interpretation Description Data Sup porting Code Source(s) Document(s ) Free Magee 81.1 mg/L Above high normal MEDGEN (St Lt Chains,S [facility], ) Free Lambda 45.6 mg/L Above high normal MEDGEN (St Lt Chains,S [facility], ) Magee/Lambd 1.78 Above high normal MEDGEN (St a Ratio,S [facility], ) ID Date Data Source [id number] 11/03/2019 12:00:00 AM EDT [facility] ([facility], ) Name Value Range Interpretation Code Description Data Supporting Source(s) Document(s ) Creatinine 44.5 mg/dL Normal (applies to MEDGEN (S t , Urine non-numeric Ez's results) [facility], ) Protein/Cr 2845 mg/g Above high normal MEDGEN (St eat Ratio creat [facility], ) ID Date Data Source [id number] 11/03/2019 12:00:00 AM EDT [facility] ([facility], ) Name Value Range Interpretation Description Data Sup porting Code Source(s) Document(s ) Immunofixation Normal (applies MEDGEN (S t Result, Serum to non-numeric Ez's results) [facility], ) Immunoglobulin G, 1418 Normal (applies MEDGEN (St Qn, Serum mg/dL to non-numeric Ez's results) [facility], ) Immunoglobulin A, 298 Normal (applies MEDGEN (St Qn, Serum mg/dL to non-numeric Ez's results) [facility], ) Immunoglobulin M, 183 Normal (applies MEDGEN (St Qn, Serum mg/dL to non-numeric Ez's results) [facility], ) ID Date Data Source [id number] 11/03/2019 12:00:00 AM EDT [facility] ([facility], ) Name Value Range Interpretation Description Data Sup porting Code Source(s) Document(s ) Iron 271 ug/dL Normal (applies to MEDGEN (St Bind.Cap.(TIBC non-numeric Ez's ) results) [facility], ) UIBC 196 ug/dL Normal (applies to MEDGEN (St non-numeric Ez's results) [facility], ) Iron 28 % Normal (applies to MEDGEN (St saturation non-numeric Ez's [Mass results) [facility], ) Fraction] in Serum or Plasma Iron 75 ug/dL Normal (applies to MEDGEN (St [Mass/volume] non-numeric Ez's in Serum or results) [facility], ) Plasma ID Date Data Source [id number] 11/03/2019 12:00:00 AM EDT [facility] ([facility], ) Name Value Range Interpretation Description Data Sup porting Code Source(s) Document(s ) Protein,To 126.6 mg/dL Normal (applies to MEDGEN ( St stevan,Urine non-numeric Ez's results) Medical, ) Albumin, U 63.5 % Normal (applies to MEDGEN (St non-numeric Ez's results) Medical, PC) Alpha-2-Gl 6.2 % Normal (applies to MEDGEN (St obulin, U non-numeric Ez's results) Medical, PC) Alpha-1-Gl 2.8 % Normal (applies to MEDGEN (St obulin, U non-numeric Ez's results) [facility], PC) Beta 12.0 % Normal (applies to MEDGEN (St Globulin, non-numeric Ez's U results) Medical, PC) Gamma 15.5 % Normal (applies to MEDGEN (St Globulin, non-numeric Ez's U results) Medical, PC) M-Brennan, % Not Observed Normal (applies to MEDGEN (St non-numeric Ez's results) Medical, PC) Please Normal (applies to MEDGEN (St note: non-numeric Ez's results) Medical, PC) PDF . Normal (applies to MEDGEN (St non-numeric Ez's results) Medical, ) ID Date Data Source [id number] 11/03/2019 12:00:00 AM EDT [facility], ) Name Value Range Interpretation Description Data Sup porting Code Source(s) Document(s ) Microalbumin 2.9 g/dL Normal (applies MEDGEN (St [Mass/time] in to non-numeric Ez's Urine collected results) Medical, for unspecified PC) duration Dhtly-5-Rxzbkzsj 0.2 g/dL Normal (applies MEDGEN (St to non-numeric Ez's results) Medical, PC) Lkadb-9-Qtpxoezx 0.8 g/dL Normal (applies MEDGEN (St to non-numeric Ez's results) Medical, ) Beta globulin 1.1 g/dL Normal (applies MEDGEN (St [Mass/volume] in to non-numeric Ez's Urine by results) Medical, Electrophoresis PC) Gamma globulin 1.4 g/dL Normal (applies MEDGEN (S t [Mass/volume] by to non-numeric Ez's Electrophoresis results) Medical, in Urine PC) collected for unspecified duration Globulin, Total 3.5 g/dL Normal (applies MEDGEN ( St to non-numeric Ez's results) Medical, PC) M-Brennan Not Normal (applies MEDGEN (St Observed to non-numeric Ez's results) Medical, ) A/G Ratio 0.8 Normal (applies MEDGEN (St to non-numeric Ez's results) Medical, ) PDF . Normal (applies MEDGEN (St to non-numeric Ez's results) Medical, ) Please note: Normal (applies MEDGEN (St to non-numeric Ez's results) Medical, ) ID Date Data Source [id number] 11/03/2019 12:00:00 AM EDT [facility], ) Name Value Range Interpretation Description Data Sup porting Code Source(s) Document(s ) Glucose 277 Above high MEDGEN (St [Mass/volume] in mg/dL normal Ez's Urine collected for Medical, unspecified PC) duration Urea nitrogen 42 mg/dL Above high MEDGEN (St [Mass/volume] in normal Ez's Serum or Plasma Medical, ) Creatinine 1.42 Above high MEDGEN (St [Interpretation] in mg/dL normal [facility] Urine [facility], ) eGFR If NonAfricn 40 Below low normal MEDGE N (St Am mL/min/[address], ) eGFR If Africn Am 46 Below low normal MEDGE N (St mL/min/1 [facility] [address] [facility], ) BUN/Creatinine 30 Above high MEDGEN (St Ratio normal [facility], ) Sodium 139 Normal (applies MEDGEN (St [Moles/volume] in mmol/L to non-numeric Ez's Serum or Plasma results) Medical, ) Chloride 103 Normal (applies MEDGEN (St [Moles/volume] in mmol/L to non-numeric Ez's Serum or Plasma results) Medical, ) Potassium 5.3 Above high MEDGEN (St [Mass/volume] in mmol/L normal Ez's Blood [facility], ) Carbon dioxide, 22 Normal (applies MEDGEN ( St total mmol/L to non-numeric Ez's [Moles/volume] in results) Medical, Serum or Plasma PC) Calcium 9.4 Normal (applies MEDGEN (St [Moles/volume] in mg/dL to non-numeric Ez's Urine collected for results) Medical, unspecified PC) duration Protein 6.4 g/dL Normal (applies MEDGEN (St [Mass/volume] in to non-numeric Ez's Serum or Plasma results) Medical, ) Microalbumin 3.6 g/dL Below low normal MEDGEN (St [Mass/time] in Ez's Urine collected for Medical, unspecified PC) duration A/G Ratio 1.3 Normal (applies MEDGEN (St to non-numeric Ez's results) Medical, ) Globulin, Total 2.8 g/dL Normal (applies MEDGEN ( St to non-numeric Ez's results) Medical, ) Bilirubin.total 0.3 Normal (applies MEDGEN ( St [Mass/volume] in mg/dL to non-numeric Ez's Serum or Plasma results) Medical, ) Aspartate 94 IU/L Above high MEDGEN (St aminotransferase normal Ez's [Enzymatic Medical, activity/volume] in ) Serum or Plasma Alkaline 376 IU/L Above high MEDGEN (St phosphatase normal Ez's [Enzymatic Medical, activity/volume] in ) Serum, Plasma or Blood Alanine 224 IU/L Above high MEDGEN (St aminotransferase normal Ez's [Enzymatic Medical, activity/volume] in ) Serum or Plasma ID Date Data Source [id number] 11/03/2019 12:00:00 AM EDT [facility], ) Name Value Range Interpretation Description Data Sup porting Code Source(s) Document(s ) Leukocytes 6.6 Normal (applies MEDGEN (St [#/volume] in x10E3/uL to non-numeric Ez's Blood by results) Medical, ) Automated count Erythrocytes 3.28 Below low normal MEDGEN (St [#/volume] in x10E6/uL Ez's Blood by Medical, ) Automated count Hemoglobin 9.0 g/dL Below low normal MEDGEN (St [Mass/volume] in Ez's Blood [facility], ) Hematocrit 27.6 % Below low normal MEDGEN (St [Volume Ez's Fraction] of Medical, ) Blood by Automated count MCV 84 fL Normal (applies MEDGEN (St to non-numeric Ez's results) Medical, ) MCH 27.4 pg Normal (applies MEDGEN (St to non-numeric Ez's results) Medical, ) MCHC 32.6 Normal (applies MEDGEN (St g/dL to non-numeric Ez's results) [facility], ) RDW 12.7 % Normal (applies MEDGEN (St to non-numeric Ez's results) [facility], ) Neutrophils [#] 46 % Normal (applies MEDGEN ( St in Body fluid by to non-numeric Ez's Manual count results) [facility], ) Platelets 264 Normal (applies MEDGEN (St [#/area] in x10E3/uL to non-numeric Ez's Blood by results) [facility], ) Microscopy high power field Lymphs 43 % Normal (applies MEDGEN (St to non-numeric Ez's results) [facility], ) Monocytes 8 % Normal (applies MEDGEN (St [#/volume] in to non-numeric Ez's Cord blood results) [facility], ) Eos 1 % Normal (applies MEDGEN (St to non-numeric Ez's results) [facility], ) Basos 1 % Normal (applies MEDGEN (St to non-numeric Ez's results) [facility], ) Lymphs 2.8 Normal (applies MEDGEN (St (Absolute) x10E3/uL to non-numeric Ez's results) [facility], ) Neutrophils 3.1 Normal (applies MEDGEN (St (Absolute) x10E3/uL to non-numeric Ez's results) [facility], ) Monocytes(Absolu 0.5 Normal (applies MEDGEN (St te) x10E3/uL to non-numeric Ez's results) [facility], ) Baso (Absolute) 0.0 Normal (applies MEDGEN ( St x10E3/uL to non-numeric Ez's results) [facility], ) Eos (Absolute) 0.1 Normal (applies MEDGEN (S t x10E3/uL to non-numeric Ez's results) [facility], ) Immature 1 % Normal (applies MEDGEN (St Granulocytes to non-numeric Ez's results) [facility], ) Immature Grans 0.0 Normal (applies MEDGEN (S t (Abs) x10E3/uL to non-numeric Ez's results) [facility], ) ID Date Data Source [id number] 11/03/2019 12:00:00 AM EDT [facility] ([facility], ) Name Value Range Interpretation Description Data Sup porting Code Source(s) Document(s ) Antiproteinase 3 <3.5 Normal (applies MEDGEN (St (MO-3) Abs to non-numeric Ez's results) [facility], PC) Antimyeloperoxidase <9.0 Normal (applies MEDG EN (St (MPO) Abs to non-numeric Ez's results) Medical, PC) Cytoplasmic (C-ANCA) <1:20 Normal (applies MED GEN (St to non-numeric Ez's results) Medical, PC) Atypical pANCA <1:20 Normal (applies MEDGEN (S t to non-numeric Ez's results) Medical, PC) Perinuclear (P-ANCA) <1:20 Normal (applies MED GEN (St to non-numeric Ez's results) Medical, PC) ID Date Data Source [id number] 11/03/2019 12:00:00 AM EDT [facility] Name Value Range Interpretation Code Description Data Sandie rce(s) Supporting Document(s ) ID Date Data Source [id number] 11/03/2019 12:00:00 AM EDT [facility] Name Value Range Interpretation Code Description Data Sandie rce(s) Supporting Document(s ) PDF . Normal (applies to MEDGEN (St non-numeric results) Ez's Me dical, PC) ID Date Data Source [id number] 11/03/2019 12:00:00 AM EDT [facility] Name Value Range Interpretation Description Data Sup porting Code Source(s) Document(s ) Antinuclear Negative Normal (applies MEDGEN (St Antibodies, IFA to non-numeric Ez's results) Medical, ) ID Date Data Source [id number] 11/03/2019 12:00:00 AM EDT [facility] Name Value Range Interpretation Code Description Data Supporting Source(s) Document(s ) PTH, Intact 21 pg/mL Normal (applies to MEDGEN (S t non-numeric Ez's results) Medical, PC) ID Date Data Source [id number] 11/03/2019 12:00:00 AM EDT [facility] Name Value Range Interpretation Code Description Data Supporting Source(s) Document(s ) HBsAg Negative Normal (applies to MEDGEN (St Screen non-numeric Ez's results) Medical, ) ID Date Data Source [id number] 11/03/2019 12:00:00 AM EDT [facility] Name Value Range Interpretation Code Description Data Sandie rce(s) Supporting Document(s ) Uric Acid 6.0 mg/dL Normal (applies to MEDGEN (St non-numeric Ez's results) [facility], ) ID Date Data Source [id number] 11/03/2019 12:00:00 AM EDT [facility] ([facility], ) Name Value Range Interpretation Code Description Data Supporting Source(s) Document(s ) Hep C 0.3 s/co Normal (applies to MEDGEN (St Virus Ab ratio non-numeric Ez's results) Medical, ) ID Date Data Source [id number] 11/03/2019 12:00:00 AM EDT [facility] ([facility], ) Name Value Range Interpretation Code Description Data Sandie rce(s) Supporting Document(s ) NAINA Normal (applies to MEDGEN (St Interpreta non-numeric results) Ez's M edical, tion:U ) ID Date Data Source [id number] 11/03/2019 12:00:00 AM EDT [facility] ([facility], ) Name Value Range Interpretation Code Description Data Sandie rce(s) Supporting Document(s ) Anti-DNA 1 IU/mL Normal (applies to MEDGEN (St (DS) Ab Qn non-numeric Ez's results) Medical, ) ID Date Data Source [id number] 11/03/2019 12:00:00 AM EDT [facility] ([facility], ) Name Value Range Interpretation Description Data Sup porting Code Source(s) Document(s ) HIV Screen Non Normal (applies MEDGEN (St 4th Reactive to non-numeric Ez's Generation results) Medical, ) wRfx ID Date Data Source [id number] 11/03/2019 12:00:00 AM EDT [facility], ) Name Value Range Interpretation Description Data Sup porting Code Source(s) Document(s ) Antiglomerular BM 16 units Normal (applies MEDGEN (St Ab to non-numeric Ez's results) Medical, ) ID Date Data Source [id number] 11/03/2019 12:00:00 AM EDT [facility] ([facility], ) Name Value Range Interpretation Code Description Data Sandie rce(s) Supporting Document(s ) RA Latex <10.0 Normal (applies to MEDGEN (St Turbid. non-numeric results) [facility], ) ID Date Data Source [id number] 11/03/2019 12:00:00 AM EDT [facility] Name Value Range Interpretation Description Data Sup porting Code Source(s) Document(s ) Complement C3, 137 mg/dL Normal (applies to MEDGEN (St Serum non-numeric Ez's results) Medical, ) ID Date Data Source [id number] 11/03/2019 12:00:00 AM EDT [facility] Name Value Range Interpretation Description Data Sup porting Code Source(s) Document(s ) Complement C4, 32 mg/dL Normal (applies to MEDGEN (St Serum non-numeric Ez's results) Medical, ) ID Date Data Source [id number] 11/03/2019 12:00:00 AM EDT [facility] ([facility], ) Name Value Range Interpretation Description Data Sup porting Code Source(s) Document(s ) Free Magee 65.45 mg/L Normal (applies to MEDGEN (S t Lt non-numeric Ez's Chains,Ur results) Medical, ) Magee/Lambd 1.56 Normal (applies to MEDGEN (S t a Ratio,U non-numeric Ez's results) Medical, ) Free Lambda 42.08 mg/L Above high normal MEDGEN (S t Lt Ez's Chains,Ur Medical, ) ID Date Data Source [id number] 11/03/2019 12:00:00 AM EDT [facility] ([facility] ) Name Value Range Interpretation Description Data Sup porting Code Source(s) Document(s ) Free Magee 81.1 mg/L Above high normal MEDGEN (St Lt Chains,S [facility], PC) Free Lambda 45.6 mg/L Above high normal MEDGEN (St Lt Chains,S [facility], PC) Magee/Lambd 1.78 Above high normal MEDGEN (St a Ratio,S [facility], PC) ID Date Data Source [id number] 11/03/2019 12:00:00 AM EDT [facility] ([facility], ) Name Value Range Interpretation Code Description Data Supporting Source(s) Document(s ) Creatinine 44.5 mg/dL Normal (applies to MEDGEN (S t , Urine non-numeric Ez's results) [facility]) Protein/Cr 2845 mg/g Above high normal MEDGEN (St eat Ratio creat [facility], ) ID Date Data Source [id number] 11/03/2019 12:00:00 AM EDT [facility]) Name Value Range Interpretation Description Data Sup porting Code Source(s) Document(s ) Immunofixation Normal (applies MEDGEN (S t Result, Serum to non-numeric Ez's results) [facility]) Immunoglobulin G, 1418 Normal (applies MEDGEN (St Qn, Serum mg/dL to non-numeric Ez's results) [facility]) Immunoglobulin M, 183 Normal (applies MEDGEN (St Qn, Serum mg/dL to non-numeric Ez's results) [facility]) Immunoglobulin A, 298 Normal (applies MEDGEN (St Qn, Serum mg/dL to non-numeric Ez's results) [facility]) ID Date Data Source [id number] 11/03/2019 12:00:00 AM EDT [facility] ([facility], ) Name Value Range Interpretation Description Data Sup porting Code Source(s) Document(s ) Iron 271 ug/dL Normal (applies to MEDGEN (St Bind.Cap.(TIBC non-numeric Ez's ) results) [facility], ) UIBC 196 ug/dL Normal (applies to MEDGEN (St non-numeric Ez's results) [facility], ) Iron 75 ug/dL Normal (applies to MEDGEN (St [Mass/volume] non-numeric Ez's in Serum or results) [facility], ) Plasma Iron 28 % Normal (applies to MEDGEN (St saturation non-numeric Ez's [Mass results) [facility], ) Fraction] in Serum or Plasma ID Date Data Source [id number] 11/03/2019 12:00:00 AM EDT [facility] Name Value Range Interpretation Description Data Sup porting Code Source(s) Document(s ) Protein,To 126.6 mg/dL Normal (applies to MEDGEN ( St stevan,Urine non-numeric Ez's results) [facility], ) Albumin, U 63.5 % Normal (applies to MEDGEN (St non-numeric Ez's results) Medical, PC) Alpha-1-Gl 2.8 % Normal (applies to MEDGEN (St obulin, U non-numeric Ez's results) Medical, PC) Alpha-2-Gl 6.2 % Normal (applies to MEDGEN (St obulin, U non-numeric Ez's results) Medical, PC) Beta 12.0 % Normal (applies to MEDGEN (St Globulin, non-numeric Ez's U results) Medical, PC) Gamma 15.5 % Normal (applies to MEDGEN (St Globulin, non-numeric Ez's U results) Medical, PC) M-Brennan, % Not Observed Normal (applies to MEDGEN (St non-numeric Ez's results) Medical, PC) Please Normal (applies to MEDGEN (St note: non-numeric Ez's results) Medical, PC) PDF . Normal (applies to MEDGEN (St non-numeric Ez's results) Medical, ) ID Date Data Source [id number] 11/03/2019 12:00:00 AM EDT [facility] ([facility] ) Name Value Range Interpretation Description Data Sup porting Code Source(s) Document(s ) Microalbumin 2.9 g/dL Normal (applies MEDGEN (St [Mass/time] in to non-numeric Ez's Urine collected results) Medical, for unspecified PC) duration Yvxms-1-Myfdznxn 0.2 g/dL Normal (applies MEDGEN (St to non-numeric Ez's results) Medical, PC) Haznf-8-Nyekuykx 0.8 g/dL Normal (applies MEDGEN (St to non-numeric Ez's results) Medical, PC) Beta globulin 1.1 g/dL Normal (applies MEDGEN (St [Mass/volume] in to non-numeric Ez's Urine by results) Medical, Electrophoresis PC) Gamma globulin 1.4 g/dL Normal (applies MEDGEN (S t [Mass/volume] by to non-numeric Ez's Electrophoresis results) Medical, in Urine PC) collected for unspecified duration M-Brennan Not Normal (applies MEDGEN (St Observed to non-numeric Ez's results) Medical, PC) Globulin, Total 3.5 g/dL Normal (applies MEDGEN ( St to non-numeric Ez's results) Medical, PC) A/G Ratio 0.8 Normal (applies [facility] (St to non-numeric Ez's results) Medical, ) PDF . Normal (applies [facility] (St to non-numeric Ez's results) Medical, ) Please note: Normal (applies [facility] (St to non-numeric Ez's results) Medical, ) ID Date Data Source [id number] 11/03/2019 12:00:00 AM EDT [facility] ([facility], ) Name Value Range Interpretation Description Data Sup porting Code Source(s) Document(s ) Glucose 277 Above high MEDGEN (St [Mass/volume] in mg/dL normal Ez's Urine collected for Medical, unspecified PC) duration Urea nitrogen 42 mg/dL Above high MEDGEN (St [Mass/volume] in normal Ez's Serum or Plasma Medical, ) Creatinine 1.42 Above high MEDGEN (St [Interpretation] in mg/dL normal Ez's Urine [facility], ) eGFR If NonAfricn 40 Below low normal MEDGE N (St Am mL/min/1 [facility] [address] [place] [address], ) eGFR If Africn Am 46 Below low normal MEDGE N (St mL/min/1 [facility] .[facility], ) BUN/Creatinine 30 Above high [facility]GEN (St Ratio normal [facility], ) Sodium 139 Normal (applies [facility]GEN (St [Moles/volume] in mmol/L to non-numeric Ez's Serum or Plasma results) Medical, ) Potassium 5.3 Above high MEDGEN (St [Mass/volume] in mmol/L normal Ez's Blood [facility], ) Chloride 103 Normal (applies [facility]GEN (St [Moles/volume] in mmol/L to non-numeric Ez's Serum or Plasma results) Medical, ) Carbon dioxide, 22 Normal (applies MEDGEN ( St total mmol/L to non-numeric Ez's [Moles/volume] in results) Medical, Serum or Plasma PC) Calcium 9.4 Normal (applies [facility] (St [Moles/volume] in mg/dL to non-numeric Ez's Urine collected for results) Medical, unspecified PC) duration Protein 6.4 g/dL Normal (applies [facility] (St [Mass/volume] in to non-numeric Ez's Serum or Plasma results) Medical, ) Microalbumin 3.6 g/dL Below low normal [facility] (St [Mass/time] in Ez's Urine collected for Medical, unspecified PC) duration Globulin, Total 2.8 g/dL Normal (applies [facility]GEN ( St to non-numeric Ez's results) [facility], ) A/G Ratio 1.3 Normal (applies [facility] (St to non-numeric Ez's results) [facility], ) Bilirubin.total 0.3 Normal (applies MEDGEN ( St [Mass/volume] in mg/dL to non-numeric Ez's Serum or Plasma results) [facility], ) Aspartate 94 IU/L Above high MEDGEN (St aminotransferase normal Ez's [Enzymatic Medical, activity/volume] in ) Serum or Plasma Alkaline 376 IU/L Above high MEDGEN (St phosphatase normal Ez's [Enzymatic Medical, activity/volume] in ) Serum, Plasma or Blood Alanine 224 IU/L Above high MEDGEN (St aminotransferase normal Ez's [Enzymatic Medical, activity/volume] in ) Serum or Plasma ID Date Data Source [id number] 11/03/2019 12:00:00 AM EDT [facility] ([facility], ) Name Value Range Interpretation Description Data Sup porting Code Source(s) Document(s ) Leukocytes 6.6 Normal (applies [facility]GEN (St [#/volume] in x10E3/uL to non-numeric Ez's Blood by results) [facility], ) Automated count Hemoglobin 9.0 g/dL Below low normal [facility] (St [Mass/volume] in Ez's Blood [facility], ) Erythrocytes 3.28 Below low normal [facility] (St [#/volume] in x10E6/uL Ez's Blood by [facility], ) Automated count Hematocrit 27.6 % Below low normal [facility] (St [Volume Ez's Fraction] of [facility], ) Blood by Automated count MCV 84 fL Normal (applies [facility] (St to non-numeric Ez's results) [facility], ) MCH 27.4 pg Normal (applies [facility] (St to non-numeric Ez's results) [facility], ) RDW 12.7 % Normal (applies [facility] (St to non-numeric Ez's results) [facility], ) MCHC 32.6 Normal (applies [facility] (St g/dL to non-numeric Ez's results) [facility], ) Platelets 264 Normal (applies [facility] (St [#/area] in x10E3/uL to non-numeric Ez's Blood by results) Medical, ) Microscopy high power field Neutrophils [#] 46 % Normal (applies [facility] ( St in Body fluid by to non-numeric Ez's Manual count results) [facility], ) Lymphs 43 % Normal (applies [facility] (St to non-numeric Ez's results) [facility], ) Monocytes 8 % Normal (applies [facility]GEN (St [#/volume] in to non-numeric Ez's Cord blood results) [facility], ) Eos 1 % Normal (applies [facility] (St to non-numeric Ez's results) Medical, ) Basos 1 % Normal (applies [facility] (St to non-numeric Ez's results) Medical, ) Neutrophils 3.1 Normal (applies [facility] (St (Absolute) x10E3/uL to non-numeric Ez's results) [facility], ) Lymphs 2.8 Normal (applies [facility] (St (Absolute) x10E3/uL to non-numeric Ez's results) [facility], ) Monocytes(Absolu 0.5 Normal (applies [facility]GEN (St te) x10E3/uL to non-numeric Ez's results) [facility], ) Eos (Absolute) 0.1 Normal (applies [facility]GEN (S t x10E3/uL to non-numeric Ez's results) [facility], ) Baso (Absolute) 0.0 Normal (applies MEDGEN ( St x10E3/uL to non-numeric Ez's results) [facility], ) Immature 1 % Normal (applies [facility] (St Granulocytes to non-numeric Ez's results) [facility], ) Immature Grans 0.0 Normal (applies MEDGEN (S t (Abs) x10E3/uL to non-numeric Ez's results) [facility], ) ID Date Data Source [id number] 11/03/2019 12:00:00 AM EDT [facility] ([facility], ) Name Value Range Interpretation Description Data Sup porting Code Source(s) Document(s ) Antiproteinase 3 <3.5 Normal (applies [facility] (St (MO-3) Abs to non-numeric Ez's results) Medical, ) Antimyeloperoxidase <9.0 Normal (applies MEDG EN (St (MPO) Abs to non-numeric Ez's results) Medical, ) Cytoplasmic (C-ANCA) <1:20 Normal (applies MED GEN (St to non-numeric Ez's results) Medical, PC) Perinuclear (P-ANCA) <1:20 Normal (applies MED GEN (St to non-numeric Ez's results) Medical, PC) Atypical pANCA <1:20 Normal (applies [facility]GEN (S t to non-numeric Ez's results) Medical, ) ID Date Data Source [id number] 11/03/2019 12:00:00 AM EDT [facility] ([facility] Name Value Range Interpretation Code Description Data Sandie rce(s) Supporting Document(s ) ID Date Data Source [id number] 11/03/2019 12:00:00 AM EDT [facility] ([facility] Name Value Range Interpretation Code Description Data Sandie rce(s) Supporting Document(s ) PDF . Normal (applies to [facility] (St non-numeric results) Ez's Me dical, PC) ID Date Data Source [id number] 09/08/2019 12:00:00 AM EDT [facility] ([facility] Name Value Range Interpretation Code Description Data Sandie rce(s) Supporting Document(s ) ID Date Data Source [id number] 09/08/2019 12:00:00 AM EDT [facility] ([facility] Name Value Range Interpretation Code Description Data Sandie rce(s) Supporting Document(s ) PDF . Normal (applies to [facility] (St non-numeric results) Ez's Me dical, PC) ID Date Data Source [id number] 09/08/2019 12:00:00 AM EDT [facility] ([facility]) Name Value Range Interpretation Description Data Sup porting Code Source(s) Document(s ) Hemoglobin A1c 8.2 % Above high normal [facility] (St in Blood [facility], ) ID Date Data Source [id number] 09/08/2019 12:00:00 AM EDT [facility] ([facility]) Name Value Range Interpretation Description Data Sup porting Code Source(s) Document(s ) Bilirubin.c 0.04 mg/dL Normal (applies to MEDGEN ( St onjugated non-numeric Ez's [Mass/volum results) Medical, ) e] in Serum or Plasma ID Date Data Source [id number] 09/08/2019 12:00:00 AM EDT [facility] ([facility], ) Name Value Range Interpretation Description Data Sup porting Code Source(s) Document(s ) Cholesterol 190 Normal (applies [facility] (St [Mass/volume] in mg/dL to non-numeric Ez's Serum or Plasma results) [facility], ) HDL Cholesterol 45 mg/dL Normal (applies [facility] ( St to non-numeric Ez's results) [facility], ) Triglyceride 187 Above high normal [facility]GEN (S t [Mass/volume] in mg/dL Ez's Serum or Plasma [facility], ) VLDL Cholesterol 37 mg/dL Normal (applies [facility] (St [place] to non-numeric Ez's results) [facility], ) LDL Cholesterol 108 Above high normal [facility]GEN (St Calc mg/dL [facility], ) ID Date Data Source [id number] 09/08/2019 12:00:00 AM EDT [facility] ([facility], ) Name Value Range Interpretation Description Data Sup porting Code Source(s) Document(s ) Urea nitrogen 45 mg/dL Above high MEDGEN (St [Mass/volume] in normal Ez's Serum or Plasma [facility], ) Glucose 254 Above high [facility] (St [Mass/volume] in mg/dL normal [facility] Urine collected for Medical, unspecified PC) duration Creatinine 1.44 Above high [facility]GEN (St [Interpretation] in mg/dL normal Ez's Urine [facility], ) eGFR If NonAfricn 39 Below low normal MEDGE N (St Am mL/min/1 [facility] [address], ) BUN/Creatinine 31 Above high MEDGEN (St Ratio normal [facility], ) eGFR If Africn Am 46 Below low normal [facility] N (St mL/min/1 [facility], ) Sodium 141 Normal (applies [facility]GEN (St [Moles/volume] in mmol/L to non-numeric Ez's Serum or Plasma results) [facility], ) Potassium 5.7 Above high [facility] (St [Mass/volume] in mmol/L normal Ez's Blood [facility], ) Chloride 105 Normal (applies [facility]GEN (St [Moles/volume] in mmol/L to non-numeric Ez's Serum or Plasma results) [facility], ) Carbon dioxide, 22 Normal (applies [facility]GEN ( St total mmol/L to non-numeric Ez's [Moles/volume] in results) Medical, Serum or Plasma PC) Calcium 9.6 Normal (applies [facility] (St [Moles/volume] in mg/dL to non-numeric Ez's Urine collected for results) Medical, unspecified PC) duration Microalbumin 4.0 g/dL Normal (applies [facility]GEN (St [Mass/time] in to non-numeric Ez's Urine collected for results) Medical, unspecified PC) duration Protein 6.4 g/dL Normal (applies [facility]GEN (St [Mass/volume] in to non-numeric Ez's Serum or Plasma results) Medical, PC) Globulin, Total 2.4 g/dL Normal (applies [facility] ( St to non-numeric Ez's results) Medical, PC) A/G Ratio 1.7 Normal (applies [facility] (St to non-numeric Ez's results) Medical, ) Bilirubin.total <0.2 Normal (applies [facility] ( St [Mass/volume] in to non-numeric Ez's Serum or Plasma results) Medical, PC) Alkaline 64 IU/L Normal (applies [facility]GEN (St phosphatase to non-numeric Ez's [Enzymatic results) Medical, activity/volume] in PC) Serum, Plasma or Blood Aspartate 19 IU/L Normal (applies [facility]GEN (St aminotransferase to non-numeric Ez's [Enzymatic results) Medical, activity/volume] in PC) Serum or Plasma Alanine 30 IU/L Normal (applies [facility]GEN (St aminotransferase to non-numeric Ez's [Enzymatic results) Medical, activity/volume] in PC) Serum or Plasma ID Date Data Source [id number] 09/08/2019 12:00:00 AM EDT [facility] ([facility], ) Name Value Range Interpretation Code Description Data Sandie rce(s) Supporting Document(s ) ID Date Data Source [id number] 09/08/2019 12:00:00 AM EDT [facility] ([facility], ) Name Value Range Interpretation Code Description Data Sandie rce(s) Supporting Document(s ) PDF . Normal (applies to MEDGEN (St non-numeric results) Ez's Me dicnj, ) ID Date Data Source [id number] 09/08/2019 12:00:00 AM EDT [facility] ([facility], ) Name Value Range Interpretation Description Data Sup porting Code Source(s) Document(s ) Hemoglobin A1c 8.2 % Above high normal MEDGEN (St in Blood [facility]) ID Date Data Source [id number] 09/08/2019 12:00:00 AM EDT MEDGEN ([facility] [place] [place]) Name Value Range Interpretation Description Data Sup porting Code Source(s) Document(s ) Bilirubin.c 0.04 mg/dL Normal (applies to MEDGEN ( St onjugated non-numeric Ez's [Mass/volum results) [facility]) e] in Serum or Plasma ID Date Data Source [id number] 09/08/2019 12:00:00 AM EDT MEDGEN ([facility] [place], ) Name Value Range Interpretation Description Data Sup porting Code Source(s) Document(s ) Cholesterol 190 Normal (applies MEDGEN (St [Mass/volume] in mg/dL to non-numeric Ez's Serum or Plasma results) [facility], ) Triglyceride 187 Above high normal [facility] (S t [Mass/volume] in mg/dL [facility] Serum or Plasma [facility]) HDL Cholesterol 45 mg/dL Normal (applies MEDGEN ( St to non-numeric Ez's results) [facility]) LDL Cholesterol 108 Above high normal [facility]GEN (St Calc mg/dL [facility]) VLDL Cholesterol 37 mg/dL Normal (applies MEDGEN (St [place] to non-numeric Ez's results) [facility]) ID Date Data Source [id number] 09/08/2019 12:00:00 AM EDT MEDGEN ([facility] [place] [place]) Name Value Range Interpretation Description Data Sup porting Code Source(s) Document(s ) Glucose 254 Above high MEDGEN (St [Mass/volume] in mg/dL normal Ez's Urine collected for Medical, unspecified PC) duration Urea nitrogen 45 mg/dL Above high [facility]GEN (St [Mass/volume] in normal Ez's Serum or Plasma [facility]) Creatinine 1.44 Above high MEDGEN (St [Interpretation] in mg/dL normal Ez's Urine [facility]) eGFR If NonAfricn 39 Below low normal MEDGE N (St Am mL/min/[address]'s [address] [place] [address]) eGFR If Africn Am 46 Below low normal MEDGE N (St mL/min/1 Ez's .73 [facility], ) BUN/Creatinine 31 Above high MEDGEN (St Ratio normal Ez's Medical, ) Sodium 141 Normal (applies MEDGEN (St [Moles/volume] in mmol/L to non-numeric Ez's Serum or Plasma results) Medical, PC) Potassium 5.7 Above high MEDGEN (St [Mass/volume] in mmol/L normal Ez's Blood [facility], ) Carbon dioxide, 22 Normal (applies MEDGEN ( St total mmol/L to non-numeric Ez's [Moles/volume] in results) Medical, Serum or Plasma PC) Chloride 105 Normal (applies [facility]GEN (St [Moles/volume] in mmol/L to non-numeric Ez's Serum or Plasma results) Medical, ) Calcium 9.6 Normal (applies [facility]GEN (St [Moles/volume] in mg/dL to non-numeric Ez's Urine collected for results) [facility], unspecified ) duration Protein 6.4 g/dL Normal (applies [facility]GEN (St [Mass/volume] in to non-numeric Ez's Serum or Plasma results) Medical, ) Microalbumin 4.0 g/dL Normal (applies [facility] (St [Mass/time] in to non-numeric Ez's Urine collected for results) [facility], unspecified PC) duration Globulin, Total 2.4 g/dL Normal (applies MEDGEN ( St to non-numeric Ez's results) Medical, ) A/G Ratio 1.7 Normal (applies MEDGEN (St to non-numeric Ez's results) [facility], ) Bilirubin.total <0.2 Normal (applies MEDGEN ( St [Mass/volume] in to non-numeric Ez's Serum or Plasma results) [facility], ) Alkaline 64 IU/L Normal (applies MEDGEN (St phosphatase to non-numeric Ez's [Enzymatic results) Medical, activity/volume] in PC) Serum, Plasma or Blood Aspartate 19 IU/L Normal (applies [facility]GEN (St aminotransferase to non-numeric Ez's [Enzymatic results) Medical, activity/volume] in PC) Serum or Plasma Alanine 30 IU/L Normal (applies [facility]GEN (St aminotransferase to non-numeric Ez's [Enzymatic results) Medical, activity/volume] in PC) Serum or Plasma ID Date Data Source [id number] 09/08/2019 12:00:00 AM EDT [facility] ([facility], ) Name Value Range Interpretation Code Description Data Sandie rce(s) Supporting Document(s ) ID Date Data Source [id number] 09/08/2019 12:00:00 AM EDT [facility] ([facility], ) Name Value Range Interpretation Code Description Data Sandie rce(s) Supporting Document(s ) PDF . Normal (applies to MEDGEN (St non-numeric results) Ez's La dical, ) ID Date Data Source [id number] 09/08/2019 12:00:00 AM EDT [facility] ([facility], ) Name Value Range Interpretation Description Data Sup porting Code Source(s) Document(s ) Hemoglobin A1c 8.2 % Above high normal MEDGEN (St in Blood [facility] [place], ) ID Date Data Source [id number] 09/08/2019 12:00:00 AM EDT [facility] ([facility], ) Name Value Range Interpretation Description Data Sup porting Code Source(s) Document(s ) Bilirubin.c 0.04 mg/dL Normal (applies to MEDGEN ( St onjugated non-numeric Ez's [Mass/volum results) [facility], ) e] in Serum or Plasma ID Date Data Source [id number] 09/08/2019 12:00:00 AM EDT [facility] ([facility], ) Name Value Range Interpretation Description Data Sup porting Code Source(s) Document(s ) Triglyceride 187 Above high normal MEDGEN (S t [Mass/volume] in mg/dL Ez's Serum or Plasma [facility], ) Cholesterol 190 Normal (applies MEDGEN (St [Mass/volume] in mg/dL to non-numeric Ez's Serum or Plasma results) [facility], ) HDL Cholesterol 45 mg/dL Normal (applies MEDGEN ( St to non-numeric Ez's results) [facility], ) VLDL Cholesterol 37 mg/dL Normal (applies [facility] (St [place] to non-numeric Ez's results) [facility], ) LDL Cholesterol 108 Above high normal [facility] (St Calc mg/dL [facility], ) ID Date Data Source [id number] 09/08/2019 12:00:00 AM EDT [facility] ([facility], ) Name Value Range Interpretation Description Data Sup porting Code Source(s) Document(s ) Urea nitrogen 45 mg/dL Above high [facility]GEN (St [Mass/volume] in normal Ez's Serum or Plasma Medical, ) Glucose 254 Above high MEDGEN (St [Mass/volume] in mg/dL normal Ez's Urine collected for Medical, unspecified PC) duration Creatinine 1.44 Above high MEDGEN (St [Interpretation] in mg/dL normal Ez's Urine Medical, ) eGFR If Africn Am 46 Below low normal [facility]GE N (St mL/min/1 [facility] .[facility], ) eGFR If NonAfricn 39 Below low normal MEDGE N (St Am mL/min/1 [facility], ) Sodium 141 Normal (applies MEDGEN (St [Moles/volume] in mmol/L to non-numeric Ez's Serum or Plasma results) Medical, ) BUN/Creatinine 31 Above high MEDGEN (St Ratio normal Ez's [facility], ) Potassium 5.7 Above high [facility]GEN (St [Mass/volume] in mmol/L normal Ez's Blood Medical, ) Chloride 105 Normal (applies [facility]GEN (St [Moles/volume] in mmol/L to non-numeric Ez's Serum or Plasma results) Medical, ) Calcium 9.6 Normal (applies MEDGEN (St [Moles/volume] in mg/dL to non-numeric Ez's Urine collected for results) Medical, unspecified PC) duration Carbon dioxide, 22 Normal (applies MEDGEN ( St total mmol/L to non-numeric Ez's [Moles/volume] in results) Medical, Serum or Plasma PC) Protein 6.4 g/dL Normal (applies [facility]GEN (St [Mass/volume] in to non-numeric Ez's Serum or Plasma results) Medical, ) Microalbumin 4.0 g/dL Normal (applies MEDGEN (St [Mass/time] in to non-numeric Ez's Urine collected for results) Medical, unspecified PC) duration Globulin, Total 2.4 g/dL Normal (applies MEDGEN ( St to non-numeric Ez's results) Medical, PC) Bilirubin.total <0.2 Normal (applies MEDGEN ( St [Mass/volume] in to non-numeric Ez's Serum or Plasma results) Medical, PC) A/G Ratio 1.7 Normal (applies MEDGEN (St to non-numeric Ez's results) Medical, ) Alkaline 64 IU/L Normal (applies MEDGEN (St phosphatase to non-numeric Ez's [Enzymatic results) Medical, activity/volume] in PC) Serum, Plasma or Blood Aspartate 19 IU/L Normal (applies MEDGEN (St aminotransferase to non-numeric Ez's [Enzymatic results) Medical, activity/volume] in PC) Serum or Plasma Alanine 30 IU/L Normal (applies MEDGEN (St aminotransferase to non-numeric Ez's [Enzymatic results) Medical, activity/volume] in PC) Serum or Plasma ID Date Data Source [id number] 09/08/2019 12:00:00 AM EDT [facility] ([facility], ) Name Value Range Interpretation Code Description Data Sandie rce(s) Supporting Document(s ) ID Date Data Source [id number] 09/08/2019 12:00:00 AM EDT [facility] ([facility], ) Name Value Range Interpretation Code Description Data Sandie rce(s) Supporting Document(s ) PDF . Normal (applies to MEDGEN (St non-numeric results) Ez's Me dical, ) ID Date Data Source [id number] 09/08/2019 12:00:00 AM EDT [facility] ([facility], ) Name Value Range Interpretation Description Data Sup porting Code Source(s) Document(s ) Hemoglobin A1c 8.2 % Above high normal MEDGEN (St in Blood [facility], ) ID Date Data Source [id number] 09/08/2019 12:00:00 AM EDT [facility] ([facility], ) Name Value Range Interpretation Description Data Sup porting Code Source(s) Document(s ) Bilirubin.c 0.04 mg/dL Normal (applies to MEDGEN ( St onjugated non-numeric Ez's [Mass/volum results) [facility], ) e] in Serum or Plasma ID Date Data Source [id number] 09/08/2019 12:00:00 AM EDT [facility] ([facility], ) Name Value Range Interpretation Description Data Sup porting Code Source(s) Document(s ) Cholesterol 190 Normal (applies MEDGEN (St [Mass/volume] in mg/dL to non-numeric Ez's Serum or Plasma results) Medical, ) HDL Cholesterol 45 mg/dL Normal (applies MEDGEN ( St to non-numeric Ez's results) [facility], ) Triglyceride 187 Above high normal MEDGEN (S t [Mass/volume] in mg/dL Ez's Serum or Plasma [facility], ) VLDL Cholesterol 37 mg/dL Normal (applies MEDGEN (St [place] to non-numeric Ez's results) [facility], ) LDL Cholesterol 108 Above high normal MEDGEN (St Calc mg/dL [facility]) ID Date Data Source [id number] 09/08/2019 12:00:00 AM EDT [facility] ([facility], ) Name Value Range Interpretation Description Data Sup porting Code Source(s) Document(s ) Glucose 254 Above high MEDGEN (St [Mass/volume] in mg/dL normal Ez's Urine collected for Medical, unspecified PC) duration Creatinine 1.44 Above high MEDGEN (St [Interpretation] in mg/dL normal [facility] Urine [facility], ) Urea nitrogen 45 mg/dL Above high MEDGEN (St [Mass/volume] in normal [facility] Serum or Plasma [facility], ) eGFR If NonAfricn 39 Below low normal MEDGE N (St Am mL/min/[address]) eGFR If Africn Am 46 Below low normal MEDGE N (St mL/min/1 [facility] [address]) BUN/Creatinine 31 Above high MEDGEN (St Ratio normal [facility]) Sodium 141 Normal (applies MEDGEN (St [Moles/volume] in mmol/L to non-numeric Ez's Serum or Plasma results) [facility], ) Chloride 105 Normal (applies MEDGEN (St [Moles/volume] in mmol/L to non-numeric Ez's Serum or Plasma results) [facility], ) Potassium 5.7 Above high MEDGEN (St [Mass/volume] in mmol/L normal [facility] Blood [facility], ) Carbon dioxide, 22 Normal (applies MEDGEN ( St total mmol/L to non-numeric Ez's [Moles/volume] in results) [facility], Serum or Plasma PC) Calcium 9.6 Normal (applies MEDGEN (St [Moles/volume] in mg/dL to non-numeric Ez's Urine collected for results) Medical, unspecified PC) duration Protein 6.4 g/dL Normal (applies MEDGEN (St [Mass/volume] in to non-numeric Ez's Serum or Plasma results) Medical, PC) Microalbumin 4.0 g/dL Normal (applies MEDGEN (St [Mass/time] in to non-numeric Ez's Urine collected for results) Medical, unspecified PC) duration Globulin, Total 2.4 g/dL Normal (applies MEDGEN ( St to non-numeric Ez's results) Medical, PC) A/G Ratio 1.7 Normal (applies MEDGEN (St to non-numeric Ez's results) Medical, PC) Bilirubin.total <0.2 Normal (applies MEDGEN ( St [Mass/volume] in to non-numeric Ez's Serum or Plasma results) Medical, PC) Alkaline 64 IU/L Normal (applies MEDGEN (St phosphatase to non-numeric Ez's [Enzymatic results) Medical, activity/volume] in PC) Serum, Plasma or Blood Aspartate 19 IU/L Normal (applies MEDGEN (St aminotransferase to non-numeric Ez's [Enzymatic results) Medical, activity/volume] in PC) Serum or Plasma Alanine 30 IU/L Normal (applies MEDGEN (St aminotransferase to non-numeric Ez's [Enzymatic results) Medical, activity/volume] in PC) Serum or Plasma ID Date Data Source [id number] 09/08/2019 12:00:00 AM EDT [facility] ([facility]) Name Value Range Interpretation Code Description Data Sandie rce(s) Supporting Document(s ) ID Date Data Source [id number] 09/08/2019 12:00:00 AM EDT [facility] ([facility]) Name Value Range Interpretation Code Description Data Sandie rce(s) Supporting Document(s ) PDF . Normal (applies to [facility] (St non-numeric results) [facility], ) ID Date Data Source [id number] 09/08/2019 12:00:00 AM EDT [facility] ([facility]) Name Value Range Interpretation Description Data Sup porting Code Source(s) Document(s ) Hemoglobin A1c 8.2 % Above high normal [facility] (St in Blood [facility], ) ID Date Data Source [id number] 09/08/2019 12:00:00 AM EDT [facility] ([facility]) Name Value Range Interpretation Description Data Sup porting Code Source(s) Document(s ) Bilirubin.c 0.04 mg/dL Normal (applies to [facility] ( St onjugated non-numeric Ez's [Mass/volum results) [facility]) e] in Serum or Plasma ID Date Data Source [id number] 09/08/2019 12:00:00 AM EDT [facility] ([facility], ) Name Value Range Interpretation Description Data Sup porting Code Source(s) Document(s ) Cholesterol 190 Normal (applies [facility] (St [Mass/volume] in mg/dL to non-numeric Ez's Serum or Plasma results) [facility], ) Triglyceride 187 Above high normal [facility] (S t [Mass/volume] in mg/dL [facility] Serum or Plasma [facility], ) HDL Cholesterol 45 mg/dL Normal (applies [facility] ( St to non-numeric Ez's results) [facility]) VLDL Cholesterol 37 mg/dL Normal (applies [facility] (St [place] to non-numeric Ez's results) [facility], ) LDL Cholesterol 108 Above high normal [facility] (St Calc mg/dL [facility], ) ID Date Data Source [id number] 09/08/2019 12:00:00 AM EDT [facility] [place] Name Value Range Interpretation Description Data Sup porting Code Source(s) Document(s ) Glucose 254 Above high [facility] (St [Mass/volume] in mg/dL normal Ez's Urine collected for Medical, unspecified PC) duration Urea nitrogen 45 mg/dL Above high [facility] (St [Mass/volume] in normal Ez's Serum or Plasma [facility], ) Creatinine 1.44 Above high [facility] (St [Interpretation] in mg/dL normal Ez[facility] Urine [facility], ) eGFR If NonAfricn 39 Below low normal MEDGE N (St Am mL/min/[address] [facility] [address] [place] [address], ) BUN/Creatinine 31 Above high [facility] (St Ratio normal [facility], ) eGFR If Africn Am 46 Below low normal MED[facility] N (St mL/min/1 [facility] .73 [facility], ) Sodium 141 Normal (applies [facility] (St [Moles/volume] in mmol/L to non-numeric Ez's Serum or Plasma results) [facility], [facility]) Potassium 5.7 Above high [facility] (St [Mass/volume] in mmol/L normal [facility] Blood [facility], [facility]) Chloride 105 Normal (applies [facility] (St [Moles/volume] in mmol/L to non-numeric [facility] Serum or Plasma results) [facility], [facility]) Carbon dioxide, 22 Normal (applies [facility] ( St total mmol/L to non-numeric Ez's [Moles/volume] in results) Medical, Serum or Plasma PC) Protein 6.4 g/dL Normal (applies [facility] (St [Mass/volume] in to non-numeric Ez's Serum or Plasma results) [facility], [facility]) Calcium 9.6 Normal (applies [facility] (St [Moles/volume] in mg/dL to non-numeric Ez's Urine collected for results) Medical, unspecified PC) duration Microalbumin 4.0 g/dL Normal (applies [facility] (St [Mass/time] in to non-numeric Ez's Urine collected for results) Medical, unspecified PC) duration A/G Ratio 1.7 Normal (applies [facility] (St to non-numeric Ez's results) Medical, PC) Globulin, Total 2.4 g/dL Normal (applies [facility] ( St to non-numeric Ez's results) Medical, PC) Bilirubin.total <0.2 Normal (applies [facility] ( St [Mass/volume] in to non-numeric Ez's Serum or Plasma results) [facility], PC) Alkaline 64 IU/L Normal (applies [facility] (St phosphatase to non-numeric Ez's [Enzymatic results) Medical, activity/volume] in PC) Serum, Plasma or Blood Aspartate 19 IU/L Normal (applies [facility] (St aminotransferase to non-numeric Ez's [Enzymatic results) Medical, activity/volume] in PC) Serum or Plasma Alanine 30 IU/L Normal (applies [facility] (St aminotransferase to non-numeric Ez's [Enzymatic results) Medical, activity/volume] in PC) Serum or Plasma ID Date Data Source [id number] 05/05/2019 12:00:00 AM EST [facility] ([facility], ) Name Value Range Interpretation Code Description Data Sandie rce(s) Supporting Document(s ) ID Date Data Source [id number] 05/05/2019 12:00:00 AM EST [facility] ([facility], ) Name Value Range Interpretation Code Description Data Sandie rce(s) Supporting Document(s ) PDF Image . Normal (applies to [facility] (St non-numeric results) [facility], ) ID Date Data Source [id number] 05/05/2019 12:00:00 AM EST [facility] ([facility], ) Name Value Range Interpretation Description Data Sup porting Code Source(s) Document(s ) Hemoglobin 8.6 % Above high normal [facility] (St A1c/Hemoglobin. Ez's total in Blood [facility], ) ID Date Data Source [id number] 05/05/2019 12:00:00 AM EST [facility] ([facility], ) Name Value Range Interpretation Description Data Sup porting Code Source(s) Document(s ) Bilirubin.c 0.05 mg/dL Normal (applies to [facility] ( St onjugated non-numeric Ez's [Mass/volum results) [facility], ) e] in Serum or Plasma ID Date Data Source [id number] 05/05/2019 12:00:00 AM EST [facility] ([facility], ) Name Value Range Interpretation Description Data Sup porting Code Source(s) Document(s ) Cholesterol 207 Above high normal [facility] (St [Mass/volume] in mg/dL Ez[facility] Serum or Plasma [facility], ) Triglyceride 136 Normal (applies [facility] (St [Mass/volume] in mg/dL to non-numeric Ez's Serum or Plasma results) [facility], ) HDL Cholesterol 49 mg/dL Normal (applies [facility] ( St to non-numeric Ez's results) [facility], ) VLDL Cholesterol 27 mg/dL Normal (applies [facility] (St [place] to non-numeric Ez's results) [facility], ) LDL Cholesterol 131 Above high normal [facility] (St Calc mg/dL [facility], ) ID Date Data Source [id number] 05/05/2019 12:00:00 AM EST [facility] ([facility], ) Name Value Range Interpretation Description Data Sup porting Code Source(s) Document(s ) Glucose 292 Above high [facility] (St [Mass/volume] in mg/dL normal Ez[facility] Urine collected for Medical, unspecified PC) duration Creatinine 1.26 Above high [facility] (St [Interpretation] in mg/dL normal Ez[facility] Urine [facility], [facility]) Urea nitrogen 30 mg/dL Above high [facility] (St [Mass/volume] in normal Ez's Serum or Plasma Medical, ) eGFR If NonAfricn 46 Below low normal MEDGE N (St Am mL/min/1 Ez's .73 [facility], ) eGFR If Africn Am 54 Below low normal [facility] N (St mL/min/1 Ez[facility] .73 [facility], ) BUN/Creatinine 24 Normal (applies [facility] (S t Ratio to non-numeric Ez's results) [facility], PC) Potassium 4.7 Normal (applies [facility] (St [Mass/volume] in mmol/L to non-numeric Ez's Blood results) Medical, ) Sodium 142 Normal (applies [facility] (St [Moles/volume] in mmol/L to non-numeric Ez's Serum or Plasma results) Medical, ) Chloride 104 Normal (applies [facility] (St [Moles/volume] in mmol/L to non-numeric Ez's Serum or Plasma results) Medical, ) Carbon dioxide, 22 Normal (applies [facility] ( St total mmol/L to non-numeric Ez's [Moles/volume] in results) Medical, Serum or Plasma PC) Protein 6.4 g/dL Normal (applies [facility] (St [Mass/volume] in to non-numeric Ez's Serum or Plasma results) Medical, PC) Calcium 9.7 Normal (applies [facility] (St [Moles/volume] in mg/dL to non-numeric Ez's Urine collected for results) Medical, unspecified PC) duration Microalbumin 3.9 g/dL Normal (applies [facility] (St [Mass/time] in to non-numeric Ez's Urine collected for results) Medical, unspecified PC) duration Globulin, Total 2.5 g/dL Normal (applies [facility] ( St to non-numeric Ez's results) Medical, ) A/G Ratio 1.6 Normal (applies [facility] (St to non-numeric Ez's results) Medical, PC) Alkaline 70 IU/L Normal (applies [facility] (St phosphatase to non-numeric Ez's [Enzymatic results) Medical, activity/volume] in PC) Serum, Plasma or Blood Bilirubin.total <0.2 Normal (applies [facility] ( St [Mass/volume] in to non-numeric Ez's Serum or Plasma results) Medical, PC) Aspartate 17 IU/L Normal (applies [facility] (St aminotransferase to non-numeric Ez's [Enzymatic results) Medical, activity/volume] in ) Serum or Plasma Alanine 26 IU/L Normal (applies [facility] (St aminotransferase to non-numeric Ez's [Enzymatic results) Medical, activity/volume] in ) Serum or Plasma ID Date Data Source [id number] 05/05/2019 12:00:00 AM EST [facility] ([facility], ) Name Value Range Interpretation Code Description Data Sandie rce(s) Supporting Document(s ) ID Date Data Source [id number] 05/05/2019 12:00:00 AM EST [facility] ([facility], ) Name Value Range Interpretation Code Description Data Sandie rce(s) Supporting Document(s ) PDF Image . Normal (applies to [facility] (St non-numeric results) [facility]) ID Date Data Source [id number] 05/05/2019 12:00:00 AM EST [facility] ([facility], ) Name Value Range Interpretation Description Data Sup porting Code Source(s) Document(s ) Hemoglobin 8.6 % Above high normal [facility] (St A1c/Hemoglobin. Ez's total in Blood [facility], ) ID Date Data Source [id number] 05/05/2019 12:00:00 AM EST [facility] ([facility], ) Name Value Range Interpretation Description Data Sup porting Code Source(s) Document(s ) Bilirubin.c 0.05 mg/dL Normal (applies to [facility] ( St onjugated non-numeric Ez's [Mass/volum results) [facility], ) e] in Serum or Plasma ID Date Data Source [id number] 05/05/2019 12:00:00 AM EST [facility] ([facility], ) Name Value Range Interpretation Description Data Sup porting Code Source(s) Document(s ) Cholesterol 207 Above high normal [facility] (St [Mass/volume] in mg/dL Ez's Serum or Plasma [facility], ) Triglyceride 136 Normal (applies [facility] (St [Mass/volume] in mg/dL to non-numeric Ez's Serum or Plasma results) Medical, ) HDL Cholesterol 49 mg/dL Normal (applies [facility] ( St to non-numeric Ez's results) [facility], ) VLDL Cholesterol 27 mg/dL Normal (applies [facility] (St [place] to non-numeric Ez's results) [facility], ) LDL Cholesterol 131 Above high normal [facility] (St Calc mg/dL [facility]) ID Date Data Source [id number] 05/05/2019 12:00:00 AM EST [facility] ([facility], ) Name Value Range Interpretation Description Data Sup porting Code Source(s) Document(s ) Glucose 292 Above high [facility] (St [Mass/volume] in mg/dL normal Ez's Urine collected for Medical, unspecified PC) duration Urea nitrogen 30 mg/dL Above high [facility] (St [Mass/volume] in normal Ez's Serum or Plasma [facility], ) Creatinine 1.26 Above high [facility] (St [Interpretation] in mg/dL normal Ez's Urine [facility], ) eGFR If NonAfricn 46 Below low normal MEDGE N (St Am mL/min/[address], ) eGFR If Africn Am 54 Below low normal MEDGE N (St mL/min/1 [facility]73 [facility], ) BUN/Creatinine 24 Normal (applies [facility] (S t Ratio to non-numeric Ez's results) [facility], ) Sodium 142 Normal (applies [facility] (St [Moles/volume] in mmol/L to non-numeric Ez's Serum or Plasma results) [facility], ) Potassium 4.7 Normal (applies [facility] (St [Mass/volume] in mmol/L to non-numeric Ez's Blood results) [facility], ) Chloride 104 Normal (applies [facility] (St [Moles/volume] in mmol/L to non-numeric Ez's Serum or Plasma results) [facility], ) Carbon dioxide, 22 Normal (applies [facility] ( St total mmol/L to non-numeric Ez's [Moles/volume] in results) Medical, Serum or Plasma PC) Calcium 9.7 Normal (applies [facility] (St [Moles/volume] in mg/dL to non-numeric Ez's Urine collected for results) Medical, unspecified PC) duration Protein 6.4 g/dL Normal (applies [facility] (St [Mass/volume] in to non-numeric Ez's Serum or Plasma results) Medical, ) Microalbumin 3.9 g/dL Normal (applies [facility] (St [Mass/time] in to non-numeric Ez's Urine collected for results) Medical, unspecified PC) duration Globulin, Total 2.5 g/dL Normal (applies [facility] ( St to non-numeric Ez's results) Medical, ) A/G Ratio 1.6 Normal (applies [facility] (St to non-numeric Ez's results) Medical, ) Bilirubin.total <0.2 Normal (applies [facility] ( St [Mass/volume] in to non-numeric Ez's Serum or Plasma results) Medical, ) Alkaline 70 IU/L Normal (applies [facility] (St phosphatase to non-numeric Ez's [Enzymatic results) Medical, activity/volume] in PC) Serum, Plasma or Blood Aspartate 17 IU/L Normal (applies [facility] (St aminotransferase to non-numeric Ez's [Enzymatic results) Medical, activity/volume] in PC) Serum or Plasma Alanine 26 IU/L Normal (applies [facility] (St aminotransferase to non-numeric Ez's [Enzymatic results) Medical, activity/volume] in PC) Serum or Plasma ID Date Data Source [id number] 05/05/2019 12:00:00 AM EST [facility] ([facility], ) Name Value Range Interpretation Code Description Data Sandie rce(s) Supporting Document(s ) ID Date Data Source [id number] 05/05/2019 12:00:00 AM EST [facility] ([facility], ) Name Value Range Interpretation Code Description Data Sandie rce(s) Supporting Document(s ) PDF Image . Normal (applies to [facility] (St non-numeric results) [facility], ) ID Date Data Source [id number] 05/05/2019 12:00:00 AM EST [facility] ([facility], ) Name Value Range Interpretation Description Data Sup porting Code Source(s) Document(s ) Hemoglobin 8.6 % Above high normal [facility] (St A1c/Hemoglobin. Ez's total in Blood [facility], ) ID Date Data Source [id number] 05/05/2019 12:00:00 AM EST [facility] ([facility], ) Name Value Range Interpretation Description Data Sup porting Code Source(s) Document(s ) Bilirubin.c 0.05 mg/dL Normal (applies to [facility] ( St onjugated non-numeric Ez's [Mass/volum results) Medical, ) e] in Serum or Plasma ID Date Data Source [id number] 05/05/2019 12:00:00 AM EST [facility] ([facility], ) Name Value Range Interpretation Description Data Sup porting Code Source(s) Document(s ) Cholesterol 207 Above high normal [facility] (St [Mass/volume] in mg/dL Ez's Serum or Plasma [facility], ) HDL Cholesterol 49 mg/dL Normal (applies [facility] ( St to non-numeric Ez's results) [facility], ) Triglyceride 136 Normal (applies [facility] (St [Mass/volume] in mg/dL to non-numeric Ez's Serum or Plasma results) [facility], ) VLDL Cholesterol 27 mg/dL Normal (applies [facility] (St [place] to non-numeric Ez's results) [facility], ) LDL Cholesterol 131 Above high normal [facility] (St Calc mg/dL Ez[facility], ) ID Date Data Source [id number] 05/05/2019 12:00:00 AM EST [facility] ([facility], ) Name Value Range Interpretation Description Data Sup porting Code Source(s) Document(s ) Glucose 292 Above high [facility] (St [Mass/volume] in mg/dL normal Ez's Urine collected for Medical, unspecified PC) duration Creatinine 1.26 Above high [facility] (St [Interpretation] in mg/dL normal Ez's Urine [facility], ) Urea nitrogen 30 mg/dL Above high [facility] (St [Mass/volume] in normal Ez's Serum or Plasma [facility], ) eGFR If NonAfricn 46 Below low normal MEDGE N (St Am mL/min/1 [facility]'s [address] [place] [address], ) eGFR If Africn Am 54 Below low normal MED[facility] N (St mL/min/1 [facility] .73 [facility], ) BUN/Creatinine 24 Normal (applies [facility] (S t Ratio to non-numeric Ez's results) [facility], ) Sodium 142 Normal (applies [facility] (St [Moles/volume] in mmol/L to non-numeric Ez's Serum or Plasma results) [facility], ) Potassium 4.7 Normal (applies [facility] (St [Mass/volume] in mmol/L to non-numeric Ez's Blood results) [facility], ) Chloride 104 Normal (applies [facility] (St [Moles/volume] in mmol/L to non-numeric Ez's Serum or Plasma results) Medical, PC) Carbon dioxide, 22 Normal (applies [facility] ( St total mmol/L to non-numeric Ez's [Moles/volume] in results) Medical, Serum or Plasma PC) Calcium 9.7 Normal (applies [facility] (St [Moles/volume] in mg/dL to non-numeric Ez's Urine collected for results) Medical, unspecified PC) duration Protein 6.4 g/dL Normal (applies [facility] (St [Mass/volume] in to non-numeric Ez's Serum or Plasma results) Medical, PC) Microalbumin 3.9 g/dL Normal (applies [facility] (St [Mass/time] in to non-numeric Ez's Urine collected for results) Medical, unspecified PC) duration Globulin, Total 2.5 g/dL Normal (applies [facility] ( St to non-numeric Ez's results) Medical, PC) A/G Ratio 1.6 Normal (applies [facility] (St to non-numeric Ez's results) Medical, PC) Bilirubin.total <0.2 Normal (applies [facility] ( St [Mass/volume] in to non-numeric Ez's Serum or Plasma results) Medical, PC) Alkaline 70 IU/L Normal (applies [facility] (St phosphatase to non-numeric Ez's [Enzymatic results) Medical, activity/volume] in PC) Serum, Plasma or Blood Alanine 26 IU/L Normal (applies [facility] (St aminotransferase to non-numeric Ez's [Enzymatic results) Medical, activity/volume] in PC) Serum or Plasma Aspartate 17 IU/L Normal (applies [facility] (St aminotransferase to non-numeric Ez's [Enzymatic results) Medical, activity/volume] in PC) Serum or Plasma ID Date Data Source [id number] 05/05/2019 12:00:00 AM EST [facility] ([facility] Name Value Range Interpretation Code Description Data Sandie rce(s) Supporting Document(s ) ID Date Data Source [id number] 05/05/2019 12:00:00 AM EST [facility] ([facility] Name Value Range Interpretation Code Description Data Sandie rce(s) Supporting Document(s ) PDF Image . Normal (applies to [facility] (St non-numeric results) [facility], [facility]) ID Date Data Source [id number] 05/05/2019 12:00:00 AM EST [facility] ([facility], ) Name Value Range Interpretation Description Data Sup porting Code Source(s) Document(s ) Hemoglobin 8.6 % Above high normal [facility] (St A1c/Hemoglobin. Ez's total in Blood [facility], ) ID Date Data Source [id number] 05/05/2019 12:00:00 AM EST [facility] ([facility], ) Name Value Range Interpretation Description Data Sup porting Code Source(s) Document(s ) Bilirubin.c 0.05 mg/dL Normal (applies to [facility] ( St onjugated non-numeric Ez's [Mass/volum results) [facility], ) e] in Serum or Plasma ID Date Data Source [id number] 05/05/2019 12:00:00 AM EST [facility] ([facility], ) Name Value Range Interpretation Description Data Sup porting Code Source(s) Document(s ) Cholesterol 207 Above high normal [facility] (St [Mass/volume] in mg/dL Ez's Serum or Plasma [facility], ) Triglyceride 136 Normal (applies [facility] (St [Mass/volume] in mg/dL to non-numeric Ez's Serum or Plasma results) [facility], ) HDL Cholesterol 49 mg/dL Normal (applies [facility] ( St to non-numeric Ez's results) [facility], ) VLDL Cholesterol 27 mg/dL Normal (applies [facility] (St [place] to non-numeric Ez's results) [facility], ) LDL Cholesterol 131 Above high normal [facility] (St Calc mg/dL Ez[facility], ) ID Date Data Source [id number] 05/05/2019 12:00:00 AM EST [facility] ([facility], ) Name Value Range Interpretation Description Data Sup porting Code Source(s) Document(s ) Glucose 292 Above high [facility] (St [Mass/volume] in mg/dL normal Ez's Urine collected for Medical, unspecified PC) duration Urea nitrogen 30 mg/dL Above high [facility] (St [Mass/volume] in normal Ez's Serum or Plasma [facility], ) Creatinine 1.26 Above high [facility] (St [Interpretation] in mg/dL normal Ez's Urine [facility], ) eGFR If NonAfricn 46 Below low normal MEDGE N (St Am mL/min/1 Ez's .73 Medical, ) eGFR If Africn Am 54 Below low normal MED[facility] N (St mL/min/1 Ez[facility] .73 [facility], PC) BUN/Creatinine 24 Normal (applies [facility] (S t Ratio to non-numeric Ez's results) Medical, PC) Sodium 142 Normal (applies [facility] (St [Moles/volume] in mmol/L to non-numeric Ez's Serum or Plasma results) Medical, PC) Potassium 4.7 Normal (applies [facility] (St [Mass/volume] in mmol/L to non-numeric Ez's Blood results) Medical, ) Chloride 104 Normal (applies [facility] (St [Moles/volume] in mmol/L to non-numeric Ez's Serum or Plasma results) Medical, ) Carbon dioxide, 22 Normal (applies [facility] ( St total mmol/L to non-numeric Ez's [Moles/volume] in results) Medical, Serum or Plasma PC) Calcium 9.7 Normal (applies [facility] (St [Moles/volume] in mg/dL to non-numeric Ez's Urine collected for results) Medical, unspecified PC) duration Protein 6.4 g/dL Normal (applies [facility] (St [Mass/volume] in to non-numeric Ez's Serum or Plasma results) Medical, ) Microalbumin 3.9 g/dL Normal (applies [facility] (St [Mass/time] in to non-numeric Ez's Urine collected for results) Medical, unspecified PC) duration Globulin, Total 2.5 g/dL Normal (applies [facility] ( St to non-numeric Ez's results) Medical, PC) A/G Ratio 1.6 Normal (applies [facility] (St to non-numeric Ez's results) Medical, PC) Bilirubin.total <0.2 Normal (applies [facility] ( St [Mass/volume] in to non-numeric Ez's Serum or Plasma results) Medical, ) Alkaline 70 IU/L Normal (applies [facility]GEN (St phosphatase to non-numeric Ze's [Enzymatic results) Medical, activity/volume] in PC) Serum, Plasma or Blood Aspartate 17 IU/L Normal (applies [facility] (St aminotransferase to non-numeric Ez's [Enzymatic results) Medical, activity/volume] in PC) Serum or Plasma Alanine 26 IU/L Normal (applies [facility] (St aminotransferase to non-numeric Ez's [Enzymatic results) Medical, activity/volume] in ) Serum or Plasma ID Date Data Source [id number] 05/05/2019 12:00:00 AM EST [facility] ([facility], ) Name Value Range Interpretation Code Description Data Sandie rce(s) Supporting Document(s ) ID Date Data Source [id number] 05/05/2019 12:00:00 AM EST [facility] ([facility], ) Name Value Range Interpretation Code Description Data Sandie rce(s) Supporting Document(s ) PDF Image . Normal (applies to MED[facility] (St non-numeric results) [facility] Me [facility], ) ID Date Data Source [id number] 05/05/2019 12:00:00 AM EST [facility] ([facility], ) Name Value Range Interpretation Description Data Sup porting Code Source(s) Document(s ) Hemoglobin 8.6 % Above high normal [facility] (St A1c/Hemoglobin. Ez's total in Blood [facility], ) ID Date Data Source [id number] 05/05/2019 12:00:00 AM EST [facility] ([facility], ) Name Value Range Interpretation Description Data Sup porting Code Source(s) Document(s ) Bilirubin.c 0.05 mg/dL Normal (applies to MEDGEN ( St onjugated non-numeric Ez's [Mass/volum results) [facility], ) e] in Serum or Plasma ID Date Data Source [id number] 05/05/2019 12:00:00 AM EST [facility] ([facility], ) Name Value Range Interpretation Description Data Sup porting Code Source(s) Document(s ) Cholesterol 207 Above high normal [facility] (St [Mass/volume] in mg/dL Ez's Serum or Plasma [facility], ) Triglyceride 136 Normal (applies [facility] (St [Mass/volume] in mg/dL to non-numeric Ez's Serum or Plasma results) [facility], ) HDL Cholesterol 49 mg/dL Normal (applies MEDGEN ( St to non-numeric Ez's results) [facility], ) VLDL Cholesterol 27 mg/dL Normal (applies MED[facility] (St [place] to non-numeric Ez's results) [facility], ) LDL Cholesterol 131 Above high normal [facility] (St Calc mg/dL Ez's [facility], ) ID Date Data Source [id number] 05/05/2019 12:00:00 AM EST [facility] ([facility], ) Name Value Range Interpretation Description Data Sup porting Code Source(s) Document(s ) Glucose 292 Above high MEDGEN (St [Mass/volume] in mg/dL normal [facility] Urine collected for Medical, unspecified PC) duration Urea nitrogen 30 mg/dL Above high [facility] (St [Mass/volume] in normal Ez's Serum or Plasma Medical, ) Creatinine 1.26 Above high [facility] (St [Interpretation] in mg/dL normal Ez's Urine [facility], ) eGFR If NonAfricn 46 Below low normal MEDGE N (St Am mL/min/[address], ) eGFR If Africn Am 54 Below low normal MEDGE N (St mL/min/1 [facility]73 [facility], ) Sodium 142 Normal (applies [facility] (St [Moles/volume] in mmol/L to non-numeric Ez's Serum or Plasma results) Medical, ) BUN/Creatinine 24 Normal (applies [facility] (S t Ratio to non-numeric Ez's results) Medical, ) Potassium 4.7 Normal (applies [facility] (St [Mass/volume] in mmol/L to non-numeric Ez's Blood results) Medical, ) Chloride 104 Normal (applies [facility] (St [Moles/volume] in mmol/L to non-numeric Ez's Serum or Plasma results) Medical, ) Carbon dioxide, 22 Normal (applies [facility]GEN ( St total mmol/L to non-numeric Ez's [Moles/volume] in results) Medical, Serum or Plasma PC) Calcium 9.7 Normal (applies [facility] (St [Moles/volume] in mg/dL to non-numeric [facility] Urine collected for results) Medical, unspecified PC) duration Protein 6.4 g/dL Normal (applies [facility] (St [Mass/volume] in to non-numeric Ez's Serum or Plasma results) Medical, ) Microalbumin 3.9 g/dL Normal (applies [facility] (St [Mass/time] in to non-numeric Ez's Urine collected for results) Medical, unspecified PC) duration Globulin, Total 2.5 g/dL Normal (applies [facility] ( St to non-numeric Ez's results) Medical, ) A/G Ratio 1.6 Normal (applies [facility] (St to non-numeric Ez's results) Medical, ) Bilirubin.total <0.2 Normal (applies [facility] ( St [Mass/volume] in to non-numeric Ez's Serum or Plasma results) Medical, ) Alkaline 70 IU/L Normal (applies [facility] (St phosphatase to non-numeric Ez's [Enzymatic results) Medical, activity/volume] in PC) Serum, Plasma or Blood Aspartate 17 IU/L Normal (applies [facility] (St aminotransferase to non-numeric Ez's [Enzymatic results) Medical, activity/volume] in PC) Serum or Plasma Alanine 26 IU/L Normal (applies [facility] (St aminotransferase to non-numeric Ez's [Enzymatic results) Medical, activity/volume] in PC) Serum or Plasma ID Date Data Source [id number] 05/05/2019 12:00:00 AM EST [facility] ([facility], ) Name Value Range Interpretation Code Description Data Sandie rce(s) Supporting Document(s ) ID Date Data Source [id number] 05/05/2019 12:00:00 AM EST [facility] ([facility] Name Value Range Interpretation Code Description Data Sandie rce(s) Supporting Document(s ) PDF Image . Normal (applies to [facility] (St non-numeric results) [facility] Me [facility]ical, PC) PDF Image . Normal (applies to [facility] (St non-numeric results) [facility], PC) PDF Image . Normal (applies to [facility] (St non-numeric results) [facility], PC) PDF Image . Normal (applies to [facility] (St non-numeric results) [facility] Me [facility]ical, PC) PDF Image . Normal (applies to [facility] (St non-numeric results) [facility], PC) PDF Image . Normal (applies to [facility] (St non-numeric results) [facility], PC) ID Date Data Source [id number] 05/05/2019 12:00:00 AM EST [facility] ([facility] Name Value Range Interpretation Description Data Sup porting Code Source(s) Document(s ) Hemoglobin 8.5 % Above high normal [facility] (St A1c/Hemoglobin Ez's .total in Medical, ) Blood Hemoglobin 12.4 % Above high normal [facility] (St A1c/Hemoglobin Ez's .total in [facility]) Blood Hemoglobin 8.6 % Above high normal [facility] (St A1c/Hemoglobin Ez's .total in [facility]) Blood Hemoglobin 15.0 % Above high normal [facility] (St A1c/Hemoglobin Ez's .total in [facility]) Blood Hemoglobin 12.6 % Above high normal [facility] (St A1c/Hemoglobin Ez's .total in [facility], ) Blood Hemoglobin 7.4 % Above high normal [facility] (St A1c/Hemoglobin Ez's .total in [facility]) Blood ID Date Data Source [id number] 05/05/2019 12:00:00 AM EST [facility] ([facility]) Name Value Range Interpretation Description Data Sup porting Code Source(s) Document(s ) Bilirubin.c 0.11 mg/dL Normal (applies to [facility] ( St onjugated non-numeric Ez's [Mass/volum results) [facility]) e] in Serum or Plasma Bilirubin.c 0.08 mg/dL Normal (applies to [facility] ( St onjugated non-numeric Ez's [Mass/volum results) [facility]) e] in Serum or Plasma Bilirubin.c 0.05 mg/dL Normal (applies to [facility] ( St onjugated non-numeric Ez's [Mass/volum results) [facility]) e] in Serum or Plasma Bilirubin.c 0.05 mg/dL Normal (applies to [facility] ( St onjugated non-numeric Ez's [Mass/volum results) [facility]) e] in Serum or Plasma ID Date Data Source [id number] 05/05/2019 12:00:00 AM EST [facility] ([facility], ) Name Value Range Interpretation Description Data Sup porting Code Source(s) Document(s ) Cholesterol 221 Above high normal [facility] (St [Mass/volume] in mg/dL Ez's Serum or Plasma [facility]) Triglyceride 93 mg/dL Normal (applies [facility] (St [Mass/volume] in to non-numeric Ez's Serum or Plasma results) [facility]) HDL Cholesterol 52 mg/dL Normal (applies [facility] ( St to non-numeric Ez's results) [facility]) VLDL Cholesterol 19 mg/dL Normal (applies [facility] ([facility] to non-numeric [facility]'s results) [facility], ) LDL Cholesterol 150 Above high normal [facility] (St Calc mg/dL Ez's [facility], ) Cholesterol 210 Above high normal [facility] (St [Mass/volume] in mg/dL Ez's Serum or Plasma [facility], ) Triglyceride 204 Above high normal [facility] (S t [Mass/volume] in mg/dL Ez[facility] Serum or Plasma [facility], ) HDL Cholesterol 44 mg/dL Normal (applies [facility] ( St to non-numeric Ez's results) [facility], ) VLDL Cholesterol 41 mg/dL Above high normal [facility]GE N ([facility], ) LDL Cholesterol 125 Above high normal [facility] (St Calc mg/dL Ez's [facility], ) Cholesterol 207 Above high normal [facility] (St [Mass/volume] in mg/dL Ez's Serum or Plasma [facility], ) Triglyceride 136 Normal (applies [facility] (St [Mass/volume] in mg/dL to non-numeric Ez's Serum or Plasma results) [facility], ) HDL Cholesterol 49 mg/dL Normal (applies [facility] ( St to non-numeric Ez's results) [facility], ) VLDL Cholesterol 27 mg/dL Normal (applies [facility] ([facility] to non-numeric [facility]'s results) [facility], ) Cholesterol 276 Above high normal [facility] (St [Mass/volume] in mg/dL Ez's Serum or Plasma [facility], ) LDL Cholesterol 131 Above high normal [facility] (St Calc mg/dL Ez's [facility], ) Triglyceride 197 Above high normal [facility] (S t [Mass/volume] in mg/dL Ez[facility] Serum or Plasma [facility], ) HDL Cholesterol 44 mg/dL Normal (applies [facility] ( St to non-numeric Ez's results) [facility], ) VLDL Cholesterol 39 mg/dL Normal (applies [facility] ([facility] [place] to non-numeric [facility]'s results) [facility], ) Cholesterol 176 Normal (applies [facility] (St [Mass/volume] in mg/dL to non-numeric Ez's Serum or Plasma results) [facility], ) LDL Cholesterol 193 Above high normal [facility] (St Calc mg/dL Ez's [facility], ) Triglyceride 160 Above high normal [facility] (S t [Mass/volume] in mg/dL [facility] Serum or Plasma [facility], ) HDL Cholesterol 55 mg/dL Normal (applies [facility] ( St to non-numeric Ez's results) Medical, ) VLDL Cholesterol 32 mg/dL Normal (applies [facility] ([facility] [place] to non-numeric [facility] results) Medical, ) LDL Cholesterol 89 mg/dL Normal (applies [facility] ( St Calc to non-numeric Ez's results) Medical, ) ID Date Data Source [id number] 05/05/2019 12:00:00 AM EST [facility] ([facility], ) Name Value Range Interpretation Description Data Sup porting Code Source(s) Document(s ) Glucose, Serum 116 Above high [facility] (St mg/dL normal [facility], ) Urea nitrogen 16 mg/dL Normal (applies [facility] (St [Mass/volume] in to non-numeric Ez's Serum or Plasma results) Medical, ) Creatinine, Serum 0.85 Normal (applies [facility] (St mg/dL to non-numeric Ez's results) Medical, ) eGFR If NonAfricn 76 Normal (applies [facility] (St Am mL/min/1 to non-numeric Ez's .73 results) Medical, ) eGFR If Africn Am 87 Normal (applies [facility] (St mL/min/1 to non-numeric Ez's .73 results) Medical, ) BUN/Creatinine 19 Normal (applies [facility] (S t Ratio to non-numeric Ez's results) Medical, ) Sodium 141 Normal (applies [facility] (St [Moles/volume] in mmol/L to non-numeric [facility]'s Serum or Plasma results) Medical, ) Potassium, Serum 4.3 Normal (applies [facility] (St mmol/L to non-numeric Ez's results) Medical, ) Chloride 102 Normal (applies [facility] (St [Moles/volume] in mmol/L to non-numeric Ez's Serum or Plasma results) Medical, ) Carbon dioxide, 25 Normal (applies [facility] ( St total mmol/L to non-numeric Ez's [Moles/volume] in results) Medical, Serum or Plasma PC) Calcium, Serum 10.0 Normal (applies [facility] (S t mg/dL to non-numeric Ez's results) Medical, ) Protein 6.8 g/dL Normal (applies [facility] (St [Mass/volume] in to non-numeric Ez's Serum or Plasma results) Medical, ) Albumin, Serum 4.1 g/dL Normal (applies [facility] (S t to non-numeric Ez's results) Medical, ) Globulin, Total 2.7 g/dL Normal (applies [facility] ( St to non-numeric Ez's results) Medical, ) A/G Ratio 1.5 Normal (applies [facility] (St to non-numeric Ez's results) Medical, ) Bilirubin.total 0.4 Normal (applies [facility] ( St [Mass/volume] in mg/dL to non-numeric [facility]'s Serum or Plasma results) Medical, ) Alkaline 70 IU/L Normal (applies [facility] (St Phosphatase, S to non-numeric Ez's results) Medical, ) Aspartate 17 IU/L Normal (applies [facility] (St aminotransferase to non-numeric Ez's [Enzymatic results) Medical, activity/volume] in ) Serum or Plasma Alanine 14 IU/L Normal (applies [facility] (St aminotransferase to non-numeric Ez's [Enzymatic results) Medical, activity/volume] in ) Serum or Plasma Glucose 361 Above high [facility] (St [Mass/volume] in mg/dL normal Ez's Urine collected for Medical, unspecified PC) duration Creatinine 1.01 Above high [facility] (St [Interpretation] in mg/dL normal Ez's Urine [facility], ) Urea nitrogen 33 mg/dL Above high [facility] (St [Mass/volume] in normal Ez's Serum or Plasma [facility], ) eGFR If Africn Am 70 Normal (applies [facility] (St mL/min/1 to non-numeric Ez's .73 results) Medical, ) eGFR If NonAfricn 61 Normal (applies [facility] (St Am mL/min/1 to non-numeric Ez's .73 results) Medical, ) BUN/Creatinine 33 Above high [facility]GEN (St Ratio normal [facility] Medical, ) Sodium 138 Normal (applies [facility] (St [Moles/volume] in mmol/L to non-numeric Ez's Serum or Plasma results) Medical, ) Chloride 99 Normal (applies [facility] (St [Moles/volume] in mmol/L to non-numeric Ez's Serum or Plasma results) Medical, ) Potassium 5.1 Normal (applies [facility] (St [Mass/volume] in mmol/L to non-numeric Ez's Blood results) Medical, PC) Carbon dioxide, 23 Normal (applies [facility] ( St total mmol/L to non-numeric Ez's [Moles/volume] in results) Medical, Serum or Plasma PC) Calcium 10.9 Above high [facility] (St [Moles/volume] in mg/dL normal Ez's Urine collected for Medical, unspecified PC) duration Microalbumin 4.1 g/dL Normal (applies [facility] (St [Mass/time] in to non-numeric Ez's Urine collected for results) Medical, unspecified PC) duration Protein 6.8 g/dL Normal (applies [facility] (St [Mass/volume] in to non-numeric Ez's Serum or Plasma results) Medical, PC) A/G Ratio 1.5 Normal (applies [facility] (St to non-numeric Ez's results) Medical, PC) Globulin, Total 2.7 g/dL Normal (applies [facility] ( St to non-numeric Ez's results) Medical, PC) Alkaline 70 IU/L Normal (applies [facility] (St phosphatase to non-numeric Ez's [Enzymatic results) Medical, activity/volume] in PC) Serum, Plasma or Blood Bilirubin.total <0.2 Normal (applies [facility] ( St [Mass/volume] in to non-numeric Ez's Serum or Plasma results) Medical, PC) Aspartate 14 IU/L Normal (applies [facility] (St aminotransferase to non-numeric Ez's [Enzymatic results) Medical, activity/volume] in PC) Serum or Plasma Alanine 17 IU/L Normal (applies [facility] (St aminotransferase to non-numeric Ez's [Enzymatic results) Medical, activity/volume] in PC) Serum or Plasma Glucose 292 Above high [facility] (St [Mass/volume] in mg/dL normal Ez's Urine collected for Medical, unspecified PC) duration Urea nitrogen 30 mg/dL Above high [facility] (St [Mass/volume] in normal Ez's Serum or Plasma Medical, ) Creatinine 1.26 Above high [facility] (St [Interpretation] in mg/dL normal Ez's Urine Medical, ) eGFR If NonAfricn 46 Below low normal MEDGE N (St Am mL/min/1 [facility] .73 Medical, ) eGFR If Africn Am 54 Below low normal MEDGE N (St mL/min/1 [facility] .73 Medical, PC) Sodium 142 Normal (applies [facility]GEN (St [Moles/volume] in mmol/L to non-numeric Ez's Serum or Plasma results) Medical, PC) BUN/Creatinine 24 Normal (applies [facility]GEN (S t Ratio to non-numeric Ez's results) Medical, PC) Potassium 4.7 Normal (applies [facility]GEN (St [Mass/volume] in mmol/L to non-numeric Ez's Blood results) Medical, PC) Chloride 104 Normal (applies [facility]GEN (St [Moles/volume] in mmol/L to non-numeric Ez's Serum or Plasma results) Medical, PC) Carbon dioxide, 22 Normal (applies [facility]GEN ( St total mmol/L to non-numeric Ez's [Moles/volume] in results) Medical, Serum or Plasma PC) Protein 6.4 g/dL Normal (applies [facility] (St [Mass/volume] in to non-numeric Ez's Serum or Plasma results) Medical, PC) Calcium 9.7 Normal (applies [facility] (St [Moles/volume] in mg/dL to non-numeric Ez's Urine collected for results) Medical, unspecified PC) duration Microalbumin 3.9 g/dL Normal (applies [facility] (St [Mass/time] in to non-numeric Ez's Urine collected for results) Medical, unspecified PC) duration Globulin, Total 2.5 g/dL Normal (applies [facility] ( St to non-numeric Ez's results) Medical, PC) A/G Ratio 1.6 Normal (applies [facility] (St to non-numeric Ez's results) Medical, PC) Bilirubin.total <0.2 Normal (applies [facility]GEN ( St [Mass/volume] in to non-numeric Ez's Serum or Plasma results) Medical, PC) Aspartate 17 IU/L Normal (applies [facility] (St aminotransferase to non-numeric Ez's [Enzymatic results) Medical, activity/volume] in PC) Serum or Plasma Alkaline 70 IU/L Normal (applies [facility] (St phosphatase to non-numeric Ez's [Enzymatic results) Medical, activity/volume] in PC) Serum, Plasma or Blood Alanine 26 IU/L Normal (applies [facility]GEN (St aminotransferase to non-numeric Ez's [Enzymatic results) Medical, activity/volume] in PC) Serum or Plasma Glucose, Serum 473 Above high [facility] (St mg/dL normal [facility] Medical, PC) Urea nitrogen 12 mg/dL Normal (applies [facility] (St [Mass/volume] in to non-numeric Ez's Serum or Plasma results) [facility], ) Creatinine, Serum 1.07 Above high [facility] (St mg/dL normal [facility]) eGFR If NonAfricn 57 Below low normal MEDGE N (St Am mL/min/1 [facility] .73 [facility], ) eGFR If Africn Am 66 Normal (applies [facility]GEN (St mL/min/1 to non-numeric [facility] .73 results) [facility], ) BUN/Creatinine 11 Normal (applies [facility] (S t Ratio to non-numeric Ez's results) [facility], ) Sodium 138 Normal (applies [facility] (St [Moles/volume] in mmol/L to non-numeric Ez's Serum or Plasma results) [facility], ) Potassium, Serum 4.3 Normal (applies [facility]GEN (St mmol/L to non-numeric Ze's results) [facility], ) Chloride 99 Normal (applies [facility]GEN (St [Moles/volume] in mmol/L to non-numeric Ez's Serum or Plasma results) [facility], ) Carbon dioxide, 21 Normal (applies [facility] ( St total mmol/L to non-numeric Ez's [Moles/volume] in results) [facility], Serum or Plasma PC) Calcium, Serum 9.3 Normal (applies [facility]GEN (S t mg/dL to non-numeric Ez's results) [facility], ) Protein 6.3 g/dL Normal (applies [facility] (St [Mass/volume] in to non-numeric Ez's Serum or Plasma results) [facility], ) Albumin, Serum 3.7 g/dL Normal (applies [facility]GEN (S t to non-numeric Ez's results) [facility], ) Globulin, Total 2.6 g/dL Normal (applies [facility] ( St to non-numeric Ez's results) [facility], ) A/G Ratio 1.4 Normal (applies [facility]GEN (St to non-numeric Ez's results) [facility], ) Bilirubin.total <0.2 Normal (applies [facility]GEN ( St [Mass/volume] in to non-numeric Ez's Serum or Plasma results) Medical, ) Alkaline 123 IU/L Above high MEDGEN (St Phosphatase, S normal [facility], ) Aspartate 13 IU/L Normal (applies [facility]GEN (St aminotransferase to non-numeric Ez's [Enzymatic results) Medical, activity/volume] in PC) Serum or Plasma Alanine 18 IU/L Normal (applies [facility] (St aminotransferase to non-numeric Ez's [Enzymatic results) Medical, activity/volume] in PC) Serum or Plasma Glucose 108 Above high [facility]GEN (St [Mass/volume] in mg/dL normal Ez's Urine collected for Medical, unspecified PC) duration Urea nitrogen 35 mg/dL Above high [facility]GEN (St [Mass/volume] in normal Ez's Serum or Plasma Medical, ) Creatinine 1.09 Above high MEDGEN (St [Interpretation] in mg/dL normal Ez's Urine [facility], ) eGFR If NonAfricn 56 Below low normal MEDGE N (St Am mL/min/1 Ez's .73 [facility], ) BUN/Creatinine 32 Above high MEDGEN (St Ratio normal Ez's [facility], ) eGFR If Africn Am 64 Normal (applies [facility]GEN (St mL/min/1 to non-numeric Ez's .73 results) Medical, ) Potassium 4.9 Normal (applies [facility] (St [Mass/volume] in mmol/L to non-numeric Ez's Blood results) Medical, ) Sodium 143 Normal (applies [facility] (St [Moles/volume] in mmol/L to non-numeric Ez's Serum or Plasma results) Medical, ) Chloride 109 Above high [facility]GEN (St [Moles/volume] in mmol/L normal Ez's Serum or Plasma [facility], ) Carbon dioxide, 24 Normal (applies [facility]GEN ( St total mmol/L to non-numeric Ez's [Moles/volume] in results) Medical, Serum or Plasma PC) Protein 7.0 g/dL Normal (applies [facility]GEN (St [Mass/volume] in to non-numeric Ez's Serum or Plasma results) Medical, ) Calcium 10.2 Normal (applies [facility]GEN (St [Moles/volume] in mg/dL to non-numeric Ez's Urine collected for results) Medical, unspecified PC) duration Globulin, Total 3.0 g/dL Normal (applies [facility]GEN ( St to non-numeric Ez's results) Medical, ) Microalbumin 4.0 g/dL Normal (applies [facility]GEN (St [Mass/time] in to non-numeric Ez's Urine collected for results) Medical, unspecified PC) duration A/G Ratio 1.3 Normal (applies MEDGEN (St to non-numeric Ez's results) Medical, PC) Alkaline 124 IU/L Above high MEDGEN (St phosphatase normal Ez's [Enzymatic Medical, activity/volume] in PC) Serum, Plasma or Blood Bilirubin.total <0.2 Normal (applies [facility] ( St [Mass/volume] in to non-numeric Ez's Serum or Plasma results) Medical, PC) Alanine 64 IU/L Above high [facility] (St aminotransferase normal Ez's [Enzymatic Medical, activity/volume] in PC) Serum or Plasma Aspartate 33 IU/L Normal (applies [facility] (St aminotransferase to non-numeric Ez's [Enzymatic results) Medical, activity/volume] in PC) Serum or Plasma ID Date Data Source [id number] 11/02/2018 12:00:00 AM EDT [facility] ([facility]) Name Value Range Interpretation Code Description Data Sandie rce(s) Supporting Document(s ) ID Date Data Source [id number] 11/02/2018 12:00:00 AM EDT [facility] ([facility]) Name Value Range Interpretation Code Description Data Sandie rce(s) Supporting Document(s ) PDF Image . Normal (applies to [facility] (St non-numeric results) [facility]ical, ) ID Date Data Source [id number] 11/02/2018 12:00:00 AM EDT [facility] ([facility]) Name Value Range Interpretation Description Data Sup porting Code Source(s) Document(s ) Vitamin D, 29.6 Below low normal [facility] (St 25-Hydroxy ng/mL Ez's [facility], PC) ID Date Data Source [id number] 11/02/2018 12:00:00 AM EDT [facility] ([facility]) Name Value Range Interpretation Description Data Sup porting Code Source(s) Document(s ) Hemoglobin 7.4 % Above high normal [facility] (St A1c/Hemoglobin. Ez's total in Blood Medical, ) ID Date Data Source [id number] 11/02/2018 12:00:00 AM EDT [facility] ([facility]) Name Value Range Interpretation Description Data Sup porting Code Source(s) Document(s ) Vitamin B12 1035 Normal (applies to [facility]GEN (S t pg/mL non-numeric Ez's results) Medical, ) Folate 6.6 ng/mL Normal (applies to [facility] (St (Folic non-numeric Ez's Acid), Serum results) [facility], ) ID Date Data Source [id number] 11/02/2018 12:00:00 AM EDT [facility] ([facility], ) Name Value Range Interpretation Description Data Sup porting Code Source(s) Document(s ) Bilirubin.c 0.05 mg/dL Normal (applies to [facility] ( St onjugated non-numeric Ez's [Mass/volum results) Medical, ) e] in Serum or Plasma ID Date Data Source [id number] 11/02/2018 12:00:00 AM EDT [facility] ([facility], ) Name Value Range Interpretation Description Data Sup porting Code Source(s) Document(s ) Cholesterol 176 Normal (applies [facility] (St [Mass/volume] in mg/dL to non-numeric Ez's Serum or Plasma results) Medical, ) Triglyceride 160 Above high normal [facility] (S t [Mass/volume] in mg/dL Ez's Serum or Plasma [facility], ) HDL Cholesterol 55 mg/dL Normal (applies MEDGEN ( St to non-numeric Ez's results) [facility], ) VLDL Cholesterol 32 mg/dL Normal (applies [facility] ([facility] [place] to non-numeric Ez's results) Medical, ) LDL Cholesterol 89 mg/dL Normal (applies [facility] ( St Calc to non-numeric Ez's results) [facility], ) ID Date Data Source [id number] 11/02/2018 12:00:00 AM EDT [facility] ([facility], ) Name Value Range Interpretation Description Data Sup porting Code Source(s) Document(s ) Glucose 108 Above high [facility] (St [Mass/volume] in mg/dL normal Ez's Urine collected for Medical, unspecified PC) duration Urea nitrogen 35 mg/dL Above high [facility] (St [Mass/volume] in normal Ez's Serum or Plasma Medical, ) Creatinine 1.09 Above high MEDGEN (St [Interpretation] in mg/dL normal Ez's Urine [facility], ) eGFR If NonAfricn 56 Below low normal MEDGE N (St Am mL/min/1 Ez's .73 Medical, PC) eGFR If Africn Am 64 Normal (applies [facility]GEN (St mL/min/1 to non-numeric Ez's .73 results) Medical, PC) Sodium 143 Normal (applies [facility]GEN (St [Moles/volume] in mmol/L to non-numeric Ez's Serum or Plasma results) Medical, PC) BUN/Creatinine 32 Above high MEDGEN (St Ratio normal [facility], PC) Potassium 4.9 Normal (applies [facility]GEN (St [Mass/volume] in mmol/L to non-numeric Ez's Blood results) Medical, PC) Carbon dioxide, 24 Normal (applies [facility]GEN ( St total mmol/L to non-numeric Ez's [Moles/volume] in results) Medical, Serum or Plasma PC) Chloride 109 Above high [facility]GEN (St [Moles/volume] in mmol/L normal Ez's Serum or Plasma Medical, PC) Calcium 10.2 Normal (applies [facility]GEN (St [Moles/volume] in mg/dL to non-numeric Ez's Urine collected for results) Medical, unspecified PC) duration Protein 7.0 g/dL Normal (applies [facility]GEN (St [Mass/volume] in to non-numeric Ez's Serum or Plasma results) Medical, PC) Microalbumin 4.0 g/dL Normal (applies MEDGEN (St [Mass/time] in to non-numeric Ez's Urine collected for results) Medical, unspecified PC) duration Globulin, Total 3.0 g/dL Normal (applies [facility]GEN ( St to non-numeric Ez's results) Medical, PC) A/G Ratio 1.3 Normal (applies MEDGEN (St to non-numeric Ez's results) Medical, PC) Bilirubin.total <0.2 Normal (applies [facility]GEN ( St [Mass/volume] in to non-numeric Ez's Serum or Plasma results) Medical, PC) Alkaline 124 IU/L Above high MEDGEN (St phosphatase normal Ez's [Enzymatic Medical, activity/volume] in PC) Serum, Plasma or Blood Aspartate 33 IU/L Normal (applies MEDGEN (St aminotransferase to non-numeric Ez's [Enzymatic results) Medical, activity/volume] in PC) Serum or Plasma Alanine 64 IU/L Above high MEDGEN (St aminotransferase normal Ez's [Enzymatic Medical, activity/volume] in ) Serum or Plasma ID Date Data Source [id number] 11/02/2018 12:00:00 AM EDT [facility] ([facility], ) Name Value Range Interpretation Code Description Data Sandie rce(s) Supporting Document(s ) ID Date Data Source [id number] 11/02/2018 12:00:00 AM EDT [facility] ([facility], ) Name Value Range Interpretation Code Description Data Sandie rce(s) Supporting Document(s ) PDF Image . Normal (applies to [facility] (St non-numeric results) [facility] Me dical, ) ID Date Data Source [id number] 11/02/2018 12:00:00 AM EDT [facility] ([facility], ) Name Value Range Interpretation Description Data Sup porting Code Source(s) Document(s ) Vitamin D, 29.6 Below low normal MED[facility] (St 25-Hydroxy ng/mL [facility], ) ID Date Data Source [id number] 11/02/2018 12:00:00 AM EDT [facility] ([facility], ) Name Value Range Interpretation Description Data Sup porting Code Source(s) Document(s ) Hemoglobin 7.4 % Above high normal [facility] (St A1c/Hemoglobin. Ez's total in Blood [facility], ) ID Date Data Source [id number] 11/02/2018 12:00:00 AM EDT [facility] ([facility], ) Name Value Range Interpretation Description Data Sup porting Code Source(s) Document(s ) Vitamin B12 1035 Normal (applies to [facility] (S t pg/mL non-numeric Ez's results) [facility], ) Folate 6.6 ng/mL Normal (applies to [facility] (St (Folic non-numeric Ez's Acid), Serum results) [facility], ) ID Date Data Source [id number] 11/02/2018 12:00:00 AM EDT [facility] ([facility], ) Name Value Range Interpretation Description Data Sup porting Code Source(s) Document(s ) Bilirubin.c 0.05 mg/dL Normal (applies to [facility] ( St onjugated non-numeric Ez's [Mass/volum results) Medical, ) e] in Serum or Plasma ID Date Data Source [id number] 11/02/2018 12:00:00 AM EDT [facility] ([facility], ) Name Value Range Interpretation Description Data Sup porting Code Source(s) Document(s ) Cholesterol 176 Normal (applies [facility] (St [Mass/volume] in mg/dL to non-numeric Ez's Serum or Plasma results) Medical, ) Triglyceride 160 Above high normal [facility] (S t [Mass/volume] in mg/dL Ez's Serum or Plasma Medical, ) HDL Cholesterol 55 mg/dL Normal (applies [facility] ( St to non-numeric [facility]'s results) Medical, ) VLDL Cholesterol 32 mg/dL Normal (applies [facility] (St [place] to non-numeric Ez's results) [facility], ) LDL Cholesterol 89 mg/dL Normal (applies [facility] ( St Calc to non-numeric Ez's results) [facility], ) ID Date Data Source [id number] 11/02/2018 12:00:00 AM EDT [facility] ([facility], ) Name Value Range Interpretation Description Data Sup porting Code Source(s) Document(s ) Glucose 108 Above high [facility] (St [Mass/volume] in mg/dL normal Ez's Urine collected for Medical, unspecified PC) duration Urea nitrogen 35 mg/dL Above high [facility] (St [Mass/volume] in normal Ez's Serum or Plasma [facility], ) Creatinine 1.09 Above high [facility] (St [Interpretation] in mg/dL normal Ez's Urine [facility], ) eGFR If NonAfricn 56 Below low normal MEDGE N (St Am mL/min/1 Ez's .73 [facility], ) eGFR If Africn Am 64 Normal (applies [facility] (St mL/min/1 to non-numeric Ez's .73 results) [facility], ) BUN/Creatinine 32 Above high [facility] (St Ratio normal [facility], ) Sodium 143 Normal (applies [facility] (St [Moles/volume] in mmol/L to non-numeric Ez's Serum or Plasma results) Medical, ) Potassium 4.9 Normal (applies [facility] (St [Mass/volume] in mmol/L to non-numeric Ez's Blood results) Medical, ) Chloride 109 Above high [facility] (St [Moles/volume] in mmol/L normal Ez's Serum or Plasma Medical, PC) Carbon dioxide, 24 Normal (applies [facility] ( St total mmol/L to non-numeric [facility] [Moles/volume] in results) Medical, Serum or Plasma PC) Protein 7.0 g/dL Normal (applies [facility] (St [Mass/volume] in to non-numeric [facility]'s Serum or Plasma results) Medical, PC) Calcium 10.2 Normal (applies [facility] (St [Moles/volume] in mg/dL to non-numeric Ez's Urine collected for results) Medical, unspecified PC) duration Microalbumin 4.0 g/dL Normal (applies [facility] (St [Mass/time] in to non-numeric [facility] Urine collected for results) Medical, unspecified PC) duration Globulin, Total 3.0 g/dL Normal (applies [facility] ( St to non-numeric [facility]'s results) Medical, PC) A/G Ratio 1.3 Normal (applies [facility] (St to non-numeric [facility] results) Medical, PC) Alkaline 124 IU/L Above high [facility] (St phosphatase normal Ez's [Enzymatic Medical, activity/volume] in PC) Serum, Plasma or Blood Bilirubin.total <0.2 Normal (applies [facility] ( St [Mass/volume] in to non-numeric [facility] Serum or Plasma results) Medical, PC) Aspartate 33 IU/L Normal (applies [facility] (St aminotransferase to non-numeric Ez's [Enzymatic results) Medical, activity/volume] in PC) Serum or Plasma Alanine 64 IU/L Above high [facility] (St aminotransferase normal Ez's [Enzymatic Medical, activity/volume] in PC) Serum or Plasma ID Date Data Source [id number] 11/02/2018 12:00:00 AM EDT [facility] Name Value Range Interpretation Code Description Data Sandie rce(s) Supporting Document(s ) ID Date Data Source [id number] 11/02/2018 12:00:00 AM EDT [facility] Name Value Range Interpretation Code Description Data Sandie rce(s) Supporting Document(s ) PDF Image . Normal (applies to [facility] (St non-numeric results) [facility], [facility]) ID Date Data Source [id number] 11/02/2018 12:00:00 AM EDT [facility] Name Value Range Interpretation Description Data Sup porting Code Source(s) Document(s ) Vitamin D, 29.6 Below low normal [facility] (St 25-Hydroxy ng/mL [facility]) ID Date Data Source [id number] 11/02/2018 12:00:00 AM EDT [facility] ([facility], ) Name Value Range Interpretation Description Data Sup porting Code Source(s) Document(s ) Hemoglobin 7.4 % Above high normal [facility] (St A1c/Hemoglobin. Ez[facility] total in Blood [facility], ) ID Date Data Source [id number] 11/02/2018 12:00:00 AM EDT [facility] ([facility], ) Name Value Range Interpretation Description Data Sup porting Code Source(s) Document(s ) Folate 6.6 ng/mL Normal (applies to [facility] (St (Folic non-numeric Ez's Acid), Serum results) [facility], ) Vitamin B12 1035 Normal (applies to [facility] (S t pg/mL non-numeric Ez's results) [facility], ) ID Date Data Source [id number] 11/02/2018 12:00:00 AM EDT [facility] ([facility], ) Name Value Range Interpretation Description Data Sup porting Code Source(s) Document(s ) Bilirubin.c 0.05 mg/dL Normal (applies to [facility] ( St onjugated non-numeric Ez's [Mass/volum results) [facility]) e] in Serum or Plasma ID Date Data Source [id number] 11/02/2018 12:00:00 AM EDT [facility] ([facility], ) Name Value Range Interpretation Description Data Sup porting Code Source(s) Document(s ) Cholesterol 176 Normal (applies [facility] (St [Mass/volume] in mg/dL to non-numeric Ez's Serum or Plasma results) [facility], ) Triglyceride 160 Above high normal [facility] (S t [Mass/volume] in mg/dL Ez[facility] Serum or Plasma [facility], ) HDL Cholesterol 55 mg/dL Normal (applies [facility] ( St to non-numeric Ez's results) [facility]) VLDL Cholesterol 32 mg/dL Normal (applies [facility] (St [place] to non-numeric Ez's results) [facility], ) LDL Cholesterol 89 mg/dL Normal (applies [facility] ( St Calc to non-numeric Ez's results) Medical, ) ID Date Data Source [id number] 11/02/2018 12:00:00 AM EDT [facility], ) Name Value Range Interpretation Description Data Sup porting Code Source(s) Document(s ) Glucose 108 Above high [facility] (St [Mass/volume] in mg/dL normal [facility] Urine collected for Medical, unspecified PC) duration Creatinine 1.09 Above high [facility] (St [Interpretation] in mg/dL normal [facility] Urine Medical, ) Urea nitrogen 35 mg/dL Above high [facility] (St [Mass/volume] in normal [facility] Serum or Plasma Medical, ) eGFR If NonAfricn 56 Below low normal MEDGE N (St Am mL/min/1 Ez[facility] .73 Medical, ) eGFR If Africn Am 64 Normal (applies [facility] (St mL/min/1 to non-numeric [facility] 73 results) Medical, ) BUN/Creatinine 32 Above high [facility] (St Ratio normal [facility], ) Potassium 4.9 Normal (applies [facility] (St [Mass/volume] in mmol/L to non-numeric [facility] Blood results) Medical, ) Sodium 143 Normal (applies [facility] (St [Moles/volume] in mmol/L to non-numeric [facility] Serum or Plasma results) Medical, ) Chloride 109 Above high [facility] (St [Moles/volume] in mmol/L normal Ez's Serum or Plasma Medical, ) Carbon dioxide, 24 Normal (applies [facility] ( St total mmol/L to non-numeric [facility] [Moles/volume] in results) Medical, Serum or Plasma PC) Calcium 10.2 Normal (applies [facility] (St [Moles/volume] in mg/dL to non-numeric [facility] Urine collected for results) Medical, unspecified PC) duration Protein 7.0 g/dL Normal (applies [facility] (St [Mass/volume] in to non-numeric Ez[facility] Serum or Plasma results) Medical, ) Microalbumin 4.0 g/dL Normal (applies [facility] (St [Mass/time] in to non-numeric Ez[facility] Urine collected for results) Medical, unspecified PC) duration Globulin, Total 3.0 g/dL Normal (applies [facility] ( St to non-numeric Ez's results) Medical, PC) A/G Ratio 1.3 Normal (applies [facility] (St to non-numeric Ez's results) Medical, PC) Bilirubin.total <0.2 Normal (applies [facility] ( St [Mass/volume] in to non-numeric [facility] Serum or Plasma results) Medical, PC) Alkaline 124 IU/L Above high [facility] (St phosphatase normal Ez[facility] [Enzymatic Medical, activity/volume] in PC) Serum, Plasma or Blood Alanine 64 IU/L Above high [facility] (St aminotransferase normal [facility]'s [Enzymatic Medical, activity/volume] in PC) Serum or Plasma Aspartate 33 IU/L Normal (applies [facility] (St aminotransferase to non-numeric Ez's [Enzymatic results) Medical, activity/volume] in PC) Serum or Plasma ID Date Data Source [id number] 11/02/2018 12:00:00 AM EDT [facility] Name Value Range Interpretation Code Description Data Sandie rce(s) Supporting Document(s ) ID Date Data Source [id number] 11/02/2018 12:00:00 AM EDT [facility] Name Value Range Interpretation Code Description Data Sandie rce(s) Supporting Document(s ) PDF Image . Normal (applies to [facility] (St non-numeric results) [facility], ) ID Date Data Source [id number] 11/02/2018 12:00:00 AM EDT [facility] Name Value Range Interpretation Description Data Sup porting Code Source(s) Document(s ) Vitamin D, 29.6 Below low normal [facility] (St 25-Hydroxy ng/mL [facility], ) ID Date Data Source [id number] 11/02/2018 12:00:00 AM EDT [facility] Name Value Range Interpretation Description Data Sup porting Code Source(s) Document(s ) Hemoglobin 7.4 % Above high normal [facility] (St A1c/Hemoglobin. Ez[facility] total in Blood [facility], ) ID Date Data Source [id number] 11/02/2018 12:00:00 AM EDT [facility] Name Value Range Interpretation Description Data Sup porting Code Source(s) Document(s ) Vitamin B12 1035 Normal (applies to [facility] (S t pg/mL non-numeric Ez's results) [facility], ) Folate 6.6 ng/mL Normal (applies to [facility] (St (Folic non-numeric Ez's Acid), Serum results) [facility], ) ID Date Data Source [id number] 11/02/2018 12:00:00 AM EDT [facility] ([facility], ) Name Value Range Interpretation Description Data Sup porting Code Source(s) Document(s ) Bilirubin.c 0.05 mg/dL Normal (applies to [facility] ( St onjugated non-numeric Ez's [Mass/volum results) [facility], ) e] in Serum or Plasma ID Date Data Source [id number] 11/02/2018 12:00:00 AM EDT [facility] ([facility], ) Name Value Range Interpretation Description Data Sup porting Code Source(s) Document(s ) Cholesterol 176 Normal (applies [facility] (St [Mass/volume] in mg/dL to non-numeric Ez's Serum or Plasma results) Medical, ) Triglyceride 160 Above high normal [facility] (S t [Mass/volume] in mg/dL Ez's Serum or Plasma [facility], ) HDL Cholesterol 55 mg/dL Normal (applies [facility] ( St to non-numeric Ez's results) [facility], ) VLDL Cholesterol 32 mg/dL Normal (applies [facility] (St [place] to non-numeric Ez's results) [facility], ) LDL Cholesterol 89 mg/dL Normal (applies [facility] ( St Calc to non-numeric Ez's results) [facility], ) ID Date Data Source [id number] 11/02/2018 12:00:00 AM EDT [facility] ([facility], ) Name Value Range Interpretation Description Data Sup porting Code Source(s) Document(s ) Glucose 108 Above high [facility] (St [Mass/volume] in mg/dL normal Ez[facility] Urine collected for Medical, unspecified PC) duration Urea nitrogen 35 mg/dL Above high [facility] (St [Mass/volume] in normal Ez[facility] Serum or Plasma [facility], ) eGFR If NonAfricn 56 Below low normal MEDGE N (St Am mL/min/1 Ez's .73 [facility], ) Creatinine 1.09 Above high [facility] (St [Interpretation] in mg/dL normal [facility] Urine Medical, ) eGFR If Africn Am 64 Normal (applies [facility] (St mL/min/1 to non-numeric Ez's .73 results) Medical, PC) BUN/Creatinine 32 Above high [facility] (St Ratio normal [facility], PC) Sodium 143 Normal (applies [facility] (St [Moles/volume] in mmol/L to non-numeric Ez[facility] Serum or Plasma results) Medical, PC) Potassium 4.9 Normal (applies [facility] (St [Mass/volume] in mmol/L to non-numeric Ez's Blood results) Medical, PC) Chloride 109 Above high [facility] (St [Moles/volume] in mmol/L normal Ez's Serum or Plasma Medical, ) Carbon dioxide, 24 Normal (applies [facility] ( St total mmol/L to non-numeric Ez's [Moles/volume] in results) Medical, Serum or Plasma PC) Calcium 10.2 Normal (applies [facility] (St [Moles/volume] in mg/dL to non-numeric [facility] Urine collected for results) Medical, unspecified PC) duration Protein 7.0 g/dL Normal (applies [facility] (St [Mass/volume] in to non-numeric Ez[facility] Serum or Plasma results) Medical, ) Microalbumin 4.0 g/dL Normal (applies [facility] (St [Mass/time] in to non-numeric Ez[facility] Urine collected for results) Medical, unspecified PC) duration Globulin, Total 3.0 g/dL Normal (applies [facility] ( St to non-numeric Ez's results) Medical, PC) A/G Ratio 1.3 Normal (applies [facility] (St to non-numeric Ez's results) Medical, PC) Bilirubin.total <0.2 Normal (applies [facility] ( St [Mass/volume] in to non-numeric Ez's Serum or Plasma results) Medical, PC) Aspartate 33 IU/L Normal (applies [facility] (St aminotransferase to non-numeric Ez's [Enzymatic results) Medical, activity/volume] in PC) Serum or Plasma Alkaline 124 IU/L Above high [facility] (St phosphatase normal Ez's [Enzymatic Medical, activity/volume] in PC) Serum, Plasma or Blood Alanine 64 IU/L Above high [facility] (St aminotransferase normal Ez's [Enzymatic Medical, activity/volume] in ) Serum or Plasma ID Date Data Source [id number] 11/02/2018 12:00:00 AM EDT [facility] ([facility], ) Name Value Range Interpretation Code Description Data Sandie rce(s) Supporting Document(s ) ID Date Data Source [id number] 11/02/2018 12:00:00 AM EDT [facility] ([facility], ) Name Value Range Interpretation Code Description Data Sandie rce(s) Supporting Document(s ) PDF Image . Normal (applies to [facility] (St non-numeric results) [facility] Me [facility], ) ID Date Data Source [id number] 11/02/2018 12:00:00 AM EDT [facility] ([facility], ) Name Value Range Interpretation Description Data Sup porting Code Source(s) Document(s ) Vitamin D, 29.6 Below low normal [facility] (St 25-Hydroxy ng/mL [facility], ) ID Date Data Source [id number] 11/02/2018 12:00:00 AM EDT [facility] ([facility], ) Name Value Range Interpretation Description Data Sup porting Code Source(s) Document(s ) Hemoglobin 7.4 % Above high normal [facility] (St A1c/Hemoglobin. Ez[facility] total in Blood [facility], ) ID Date Data Source [id number] 11/02/2018 12:00:00 AM EDT [facility] ([facility], ) Name Value Range Interpretation Description Data Sup porting Code Source(s) Document(s ) Vitamin B12 1035 Normal (applies to [facility] (S t pg/mL non-numeric Ez's results) [facility], ) Folate 6.6 ng/mL Normal (applies to [facility] (St (Folic non-numeric Ez's Acid), Serum results) [facility], ) ID Date Data Source [id number] 11/02/2018 12:00:00 AM EDT [facility] ([facility], ) Name Value Range Interpretation Description Data Sup porting Code Source(s) Document(s ) Bilirubin.c 0.05 mg/dL Normal (applies to [facility] ( St onjugated non-numeric Ez's [Mass/volum results) Medical, ) e] in Serum or Plasma ID Date Data Source [id number] 11/02/2018 12:00:00 AM EDT [facility] ([facility], ) Name Value Range Interpretation Description Data Sup porting Code Source(s) Document(s ) Cholesterol 176 Normal (applies [facility] (St [Mass/volume] in mg/dL to non-numeric Ez's Serum or Plasma results) Medical, ) Triglyceride 160 Above high normal [facility] (S t [Mass/volume] in mg/dL Ez's Serum or Plasma Medical, ) HDL Cholesterol 55 mg/dL Normal (applies [facility] ( St to non-numeric Ez's results) Medical, ) VLDL Cholesterol 32 mg/dL Normal (applies [facility] (St [place] to non-numeric Ez's results) Medical, ) LDL Cholesterol 89 mg/dL Normal (applies [facility] ( St Calc to non-numeric Ez's results) [facility], ) ID Date Data Source [id number] 11/02/2018 12:00:00 AM EDT [facility] ( [facility], ) Name Value Range Interpretation Description Data Sup porting Code Source(s) Document(s ) Glucose 108 Above high [facility] (St [Mass/volume] in mg/dL normal [facility] Urine collected for Medical, unspecified PC) duration Urea nitrogen 35 mg/dL Above high [facility] (St [Mass/volume] in normal Ez's Serum or Plasma [facility], ) Creatinine 1.09 Above high [facility] (St [Interpretation] in mg/dL normal Ez's Urine [facility], ) eGFR If NonAfricn 56 Below low normal MEDGE N (St Am mL/min/1 Ez's .73 [facility], ) eGFR If Africn Am 64 Normal (applies [facility] (St mL/min/1 to non-numeric Ez's .73 results) [facility], ) BUN/Creatinine 32 Above high [facility] (St Ratio normal [facility], ) Potassium 4.9 Normal (applies [facility] (St [Mass/volume] in mmol/L to non-numeric Ez's Blood results) Medical, ) Sodium 143 Normal (applies [facility] (St [Moles/volume] in mmol/L to non-numeric Ez's Serum or Plasma results) Medical, ) Chloride 109 Above high [facility] (St [Moles/volume] in mmol/L normal Ez's Serum or Plasma Medical, PC) Calcium 10.2 Normal (applies [facility] (St [Moles/volume] in mg/dL to non-numeric [facility] Urine collected for results) Medical, unspecified PC) duration Carbon dioxide, 24 Normal (applies [facility] ( St total mmol/L to non-numeric Ez's [Moles/volume] in results) Medical, Serum or Plasma PC) Microalbumin 4.0 g/dL Normal (applies [facility] (St [Mass/time] in to non-numeric Ez[facility] Urine collected for results) Medical, unspecified PC) duration Protein 7.0 g/dL Normal (applies [facility] (St [Mass/volume] in to non-numeric Ez's Serum or Plasma results) Medical, PC) Globulin, Total 3.0 g/dL Normal (applies [facility] ( St to non-numeric Ez's results) Medical, PC) Bilirubin.total <0.2 Normal (applies [facility] ( St [Mass/volume] in to non-numeric Ez's Serum or Plasma results) Medical, PC) A/G Ratio 1.3 Normal (applies [facility] (St to non-numeric Ez's results) Medical, PC) Aspartate 33 IU/L Normal (applies [facility] (St aminotransferase to non-numeric Ez's [Enzymatic results) Medical, activity/volume] in PC) Serum or Plasma Alkaline 124 IU/L Above high [facility] (St phosphatase normal Ez's [Enzymatic Medical, activity/volume] in PC) Serum, Plasma or Blood Alanine 64 IU/L Above high [facility] (St aminotransferase normal Ez's [Enzymatic Medical, activity/volume] in PC) Serum or Plasma ID Date Data Source [id number] 11/02/2018 12:00:00 AM EDT [facility] Name Value Range Interpretation Code Description Data Sandie rce(s) Supporting Document(s ) ID Date Data Source [id number] 11/02/2018 12:00:00 AM EDT [facility] Name Value Range Interpretation Code Description Data Sandie rce(s) Supporting Document(s ) PDF Image . Normal (applies to [facility] (St non-numeric results) [facility], PC) PDF Image . Normal (applies to [facility] (St non-numeric results) [facility] Me [facility], PC) PDF Image . Normal (applies to [facility] (St non-numeric results) [facility], [facility]) PDF Image . Normal (applies to [facility] (St non-numeric results) [facility], [facility]) PDF Image . Normal (applies to [facility] (St non-numeric results) [facility], [facility]) PDF Image . Normal (applies to [facility] (St non-numeric results) [facility], [facility]) ID Date Data Source [id number] 11/02/2018 12:00:00 AM EDT [facility] Name Value Range Interpretation Description Data Sup porting Code Source(s) Document(s ) Vitamin D, 17.3 Below low normal [facility] (St 25-Hydroxy ng/mL [facility], [facility]) Vitamin D, 22.4 Below low normal [facility] (St 25-Hydroxy ng/mL [facility], [facility]) Vitamin D, 29.6 Below low normal [facility] (St 25-Hydroxy ng/mL [facility]) ID Date Data Source [id number] 11/02/2018 12:00:00 AM EDT [facility] Name Value Range Interpretation Description Data Sup porting Code Source(s) Document(s ) Hemoglobin 8.5 % Above high normal [facility] (St A1c/Hemoglobin Ez's .total in Medical, PC) Blood Hemoglobin 12.4 % Above high normal [facility] (St A1c/Hemoglobin Ez's .total in Medical, PC) Blood Hemoglobin 8.6 % Above high normal [facility] (St A1c/Hemoglobin Ez's .total in Medical, PC) Blood Hemoglobin 15.0 % Above high normal [facility] (St A1c/Hemoglobin Ez's .total in Medical, PC) Blood Hemoglobin 12.6 % Above high normal [facility] (St A1c/Hemoglobin Ez's .total in Medical, PC) Blood Hemoglobin 7.4 % Above high normal [facility] (St A1c/Hemoglobin Ez's .total in Medical, PC) Blood ID Date Data Source [id number] 11/02/2018 12:00:00 AM EDT [facility] Name Value Range Interpretation Description Data Sup porting Code Source(s) Document(s ) Vitamin B12 798 pg/mL Normal (applies to [facility] (S t non-numeric Ez's results) [facility]) Folate 9.0 ng/mL Normal (applies to [facility] (St (Folic non-numeric Ez's Acid), Serum results) [facility]) Vitamin B12 883 pg/mL Normal (applies to [facility] (S t non-numeric Ez's results) [facility]) Vitamin B12 1035 Normal (applies to [facility] (S t pg/mL non-numeric Ez's results) [facility]) Folate 13.3 Normal (applies to [facility] (St (Folic ng/mL non-numeric Ez's Acid), Serum results) [facility]) Folate 6.6 ng/mL Normal (applies to [facility] (St (Folic non-numeric Ez's Acid), Serum results) [facility]) ID Date Data Source [id number] 11/02/2018 12:00:00 AM EDT [facility] ([facility]) Name Value Range Interpretation Description Data Sup porting Code Source(s) Document(s ) Bilirubin.c 0.11 mg/dL Normal [facility] ( St onjugated non-numeric Ez's [Mass/volum results) [facility]) e] in Serum or Plasma Bilirubin.c 0.05 mg/dL Normal ([facility] ( St onjugated non-numeric Ez's [Mass/volum results) [facility]) e] in Serum or Plasma Bilirubin.c 0.08 mg/dL Normal (applies to [facility] ( St onjugated non-numeric Ez's [Mass/volum results) [facility]) e] in Serum or Plasma Bilirubin.c 0.05 mg/dL Normal (applies to [facility] ( St onjugated non-numeric Ez's [Mass/volum results) [facility]) e] in Serum or Plasma ID Date Data Source [id number] 11/02/2018 12:00:00 AM EDT [facility] ([facility]) Name Value Range Interpretation Description Data Sup porting Code Source(s) Document(s ) Cholesterol 221 Above high normal [facility] (St [Mass/volume] in mg/dL Ez's Serum or Plasma [facility]) Triglyceride 93 mg/dL Normal (applies [facility] (St [Mass/volume] in to non-numeric Ez's Serum or Plasma results) [facility]) HDL Cholesterol 52 mg/dL Normal (applies [facility] ( St to non-numeric Ez's results) [facility], ) VLDL Cholesterol 19 mg/dL Normal (applies [facility] ([facility] to non-numeric Ez's results) [facility], ) Cholesterol 210 Above high normal [facility] (St [Mass/volume] in mg/dL Ez's Serum or Plasma [facility], ) LDL Cholesterol 150 Above high normal [facility] (St Calc mg/dL Ez's [facility], ) HDL Cholesterol 44 mg/dL Normal (applies [facility] ( St to non-numeric Ez's results) [facility], ) Triglyceride 204 Above high normal [facility] (S t [Mass/volume] in mg/dL Ez's Serum or Plasma [facility], ) VLDL Cholesterol 41 mg/dL Above high normal [facility] N ([facility], ) LDL Cholesterol 125 Above high normal [facility] (St Calc mg/dL Ez's [facility], ) Cholesterol 207 Above high normal [facility] (St [Mass/volume] in mg/dL Ez's Serum or Plasma [facility], ) Triglyceride 136 Normal (applies [facility] (St [Mass/volume] in mg/dL to non-numeric Ez's Serum or Plasma results) [facility], ) HDL Cholesterol 49 mg/dL Normal (applies [facility] ( St to non-numeric Ez's results) [facility], ) LDL Cholesterol 131 Above high normal [facility] (St Calc mg/dL Ez's [facility], ) VLDL Cholesterol 27 mg/dL Normal (applies [facility] ([facility] [place] to non-numeric Ez's results) [facility], ) Triglyceride 197 Above high normal [facility] (S t [Mass/volume] in mg/dL Ez's Serum or Plasma [facility], ) Cholesterol 276 Above high normal [facility] (St [Mass/volume] in mg/dL Ez's Serum or Plasma [facility], ) VLDL Cholesterol 39 mg/dL Normal (applies [facility] ([facility] [place] to non-numeric Ez's results) [facility], ) HDL Cholesterol 44 mg/dL Normal (applies [facility] ( St to non-numeric Ez's results) [facility], ) LDL Cholesterol 193 Above high normal [facility] (St Calc mg/dL Ez's [facility], ) Cholesterol 176 Normal (applies [facility] (St [Mass/volume] in mg/dL to non-numeric Ez's Serum or Plasma results) [facility], ) Triglyceride 160 Above high normal [facility] (S t [Mass/volume] in mg/dL [facility] Serum or Plasma Medical, ) HDL Cholesterol 55 mg/dL Normal (applies [facility] ( St to non-numeric Ez's results) Medical, ) VLDL Cholesterol 32 mg/dL Normal (applies [facility] ([facility] to non-numeric [facility] results) Medical, ) LDL Cholesterol 89 mg/dL Normal (applies [facility] ( St Calc to non-numeric Ez's results) Medical, ) ID Date Data Source [id number] 11/02/2018 12:00:00 AM EDT [facility] ([facility], ) Name Value Range Interpretation Description Data Sup porting Code Source(s) Document(s ) Glucose, Serum 116 Above high [facility] (St mg/dL normal [facility], ) Urea nitrogen 16 mg/dL Normal (applies [facility] (St [Mass/volume] in to non-numeric Ez's Serum or Plasma results) Medical, ) eGFR If NonAfricn 76 Normal (applies [facility] (St Am mL/min/1 to non-numeric Ez's .73 results) Medical, ) Creatinine, Serum 0.85 Normal (applies [facility] (St mg/dL to non-numeric Ez's results) Medical, ) BUN/Creatinine 19 Normal (applies [facility] (S t Ratio to non-numeric Ez's results) Medical, ) eGFR If Africn Am 87 Normal (applies [facility] (St mL/min/1 to non-numeric Ez's .73 results) Medical, ) Potassium, Serum 4.3 Normal (applies [facility] (St mmol/L to non-numeric Ez's results) Medical, ) Sodium 141 Normal (applies [facility] (St [Moles/volume] in mmol/L to non-numeric Ez's Serum or Plasma results) Medical, ) Carbon dioxide, 25 Normal (applies [facility] ( St total mmol/L to non-numeric Ez's [Moles/volume] in results) Medical, Serum or Plasma PC) Chloride 102 Normal (applies [facility] (St [Moles/volume] in mmol/L to non-numeric Ez's Serum or Plasma results) Medical, ) Calcium, Serum 10.0 Normal (applies [facility] (S t mg/dL to non-numeric Ez's results) Medical, ) Protein 6.8 g/dL Normal (applies [facility] (St [Mass/volume] in to non-numeric Ez's Serum or Plasma results) [facility], ) Albumin, Serum 4.1 g/dL Normal (applies [facility] (S t to non-numeric Ez's results) [facility], ) A/G Ratio 1.5 Normal (applies [facility] (St to non-numeric Ez's results) [facility], ) Globulin, Total 2.7 g/dL Normal (applies [facility] ( St to non-numeric Ez's results) [facility], ) Alkaline 70 IU/L Normal (applies [facility] (St Phosphatase, S to non-numeric Ez's results) [facility], ) Bilirubin.total 0.4 Normal (applies [facility] ( St [Mass/volume] in mg/dL to non-numeric Ez's Serum or Plasma results) [facility], ) Aspartate 17 IU/L Normal (applies [facility] (St aminotransferase to non-numeric Ez's [Enzymatic results) Medical, activity/volume] in ) Serum or Plasma Alanine 14 IU/L Normal (applies [facility] (St aminotransferase to non-numeric Ez's [Enzymatic results) Medical, activity/volume] in ) Serum or Plasma Glucose 361 Above high [facility] (St [Mass/volume] in mg/dL normal Ez's Urine collected for Medical, unspecified PC) duration Urea nitrogen 33 mg/dL Above high [facility] (St [Mass/volume] in normal Ez's Serum or Plasma [facility], ) Creatinine 1.01 Above high [facility] (St [Interpretation] in mg/dL normal Ez's Urine [facility], ) eGFR If NonAfricn 61 Normal (applies [facility] (St Am mL/min/1 to non-numeric Ez's .73 results) [facility], ) eGFR If Africn Am 70 Normal (applies [facility] (St mL/min/1 to non-numeric Ez's .73 results) [facility], ) BUN/Creatinine 33 Above high [facility] (St Ratio normal Ez's [facility], ) Sodium 138 Normal (applies [facility] (St [Moles/volume] in mmol/L to non-numeric Ez's Serum or Plasma results) Medical, ) Potassium 5.1 Normal (applies [facility] (St [Mass/volume] in mmol/L to non-numeric Ez's Blood results) Medical, PC) Chloride 99 Normal (applies [facility] (St [Moles/volume] in mmol/L to non-numeric Ez's Serum or Plasma results) Medical, ) Calcium 10.9 Above high [facility] (St [Moles/volume] in mg/dL normal Ez's Urine collected for Medical, unspecified PC) duration Carbon dioxide, 23 Normal (applies [facility] ( St total mmol/L to non-numeric Ez's [Moles/volume] in results) Medical, Serum or Plasma PC) Microalbumin 4.1 g/dL Normal (applies [facility] (St [Mass/time] in to non-numeric Ez's Urine collected for results) Medical, unspecified PC) duration Protein 6.8 g/dL Normal (applies [facility] (St [Mass/volume] in to non-numeric Ez's Serum or Plasma results) Medical, ) Globulin, Total 2.7 g/dL Normal (applies [facility] ( St to non-numeric Ez's results) Medical, ) Bilirubin.total <0.2 Normal (applies [facility] ( St [Mass/volume] in to non-numeric Ez's Serum or Plasma results) Medical, ) A/G Ratio 1.5 Normal (applies [facility] (St to non-numeric Ez's results) Medical, ) Alkaline 70 IU/L Normal (applies [facility] (St phosphatase to non-numeric Ez's [Enzymatic results) Medical, activity/volume] in PC) Serum, Plasma or Blood Aspartate 14 IU/L Normal (applies [facility] (St aminotransferase to non-numeric Ez's [Enzymatic results) Medical, activity/volume] in PC) Serum or Plasma Alanine 17 IU/L Normal (applies [facility] (St aminotransferase to non-numeric Ez's [Enzymatic results) Medical, activity/volume] in PC) Serum or Plasma Glucose 292 Above high [facility] (St [Mass/volume] in mg/dL normal Ez's Urine collected for Medical, unspecified PC) duration Urea nitrogen 30 mg/dL Above high [facility] (St [Mass/volume] in normal Ez's Serum or Plasma Medical, ) Creatinine 1.26 Above high [facility] (St [Interpretation] in mg/dL normal Ez's Urine Medical, ) eGFR If Africn Am 54 Below low normal [facility] N (St mL/min/1 Ez's .73 Medical, ) eGFR If NonAfricn 46 Below low normal [facility] N (St Am mL/min/1 Ez's .73 Medical, PC) Sodium 142 Normal (applies [facility] (St [Moles/volume] in mmol/L to non-numeric Ez's Serum or Plasma results) Medical, PC) BUN/Creatinine 24 Normal (applies [facility] (S t Ratio to non-numeric Ez's results) Medical, PC) Potassium 4.7 Normal (applies [facility] (St [Mass/volume] in mmol/L to non-numeric Ez's Blood results) Medical, PC) Chloride 104 Normal (applies [facility] (St [Moles/volume] in mmol/L to non-numeric Ez's Serum or Plasma results) Medical, ) Carbon dioxide, 22 Normal (applies [facility] ( St total mmol/L to non-numeric Ez's [Moles/volume] in results) Medical, Serum or Plasma PC) Protein 6.4 g/dL Normal (applies [facility] (St [Mass/volume] in to non-numeric Ez's Serum or Plasma results) Medical, ) Calcium 9.7 Normal (applies [facility] (St [Moles/volume] in mg/dL to non-numeric Ez's Urine collected for results) Medical, unspecified PC) duration Microalbumin 3.9 g/dL Normal (applies [facility] (St [Mass/time] in to non-numeric Ez's Urine collected for results) Medical, unspecified PC) duration Globulin, Total 2.5 g/dL Normal (applies [facility] ( St to non-numeric Ez's results) Medical, PC) A/G Ratio 1.6 Normal (applies [facility] (St to non-numeric Ez's results) Medical, PC) Bilirubin.total <0.2 Normal (applies [facility] ( St [Mass/volume] in to non-numeric Ez's Serum or Plasma results) Medical, ) Alkaline 70 IU/L Normal (applies [facility] (St phosphatase to non-numeric Ez's [Enzymatic results) Medical, activity/volume] in PC) Serum, Plasma or Blood Alanine 26 IU/L Normal (applies [facility] (St aminotransferase to non-numeric Ez's [Enzymatic results) Medical, activity/volume] in PC) Serum or Plasma Aspartate 17 IU/L Normal (applies [facility] (St aminotransferase to non-numeric Ez's [Enzymatic results) Medical, activity/volume] in PC) Serum or Plasma Urea nitrogen 12 mg/dL Normal (applies [facility] (St [Mass/volume] in to non-numeric Ez's Serum or Plasma results) [facility], ) Glucose, Serum 473 Above high [facility] (St mg/dL normal [facility], ) Creatinine, Serum 1.07 Above high [facility] (St mg/dL normal [facility], ) eGFR If Africn Am 66 Normal (applies [facility] (St mL/min/1 to non-numeric [facility] .73 results) [facility], ) eGFR If NonAfricn 57 Below low normal [facility] N (St Am mL/min/1 [facility] .73 [facility], ) Sodium 138 Normal (applies [facility] (St [Moles/volume] in mmol/L to non-numeric Ez's Serum or Plasma results) [facility], ) BUN/Creatinine 11 Normal (applies [facility] (S t Ratio to non-numeric Ez's results) [facility], ) Potassium, Serum 4.3 Normal (applies [facility] (St mmol/L to non-numeric Ez's results) Medical, ) Chloride 99 Normal (applies [facility] (St [Moles/volume] in mmol/L to non-numeric Ez's Serum or Plasma results) Medical, ) Carbon dioxide, 21 Normal (applies [facility] ( St total mmol/L to non-numeric Ez's [Moles/volume] in results) Medical, Serum or Plasma PC) Protein 6.3 g/dL Normal (applies [facility] (St [Mass/volume] in to non-numeric Ez's Serum or Plasma results) [facility], ) Calcium, Serum 9.3 Normal (applies [facility] (S t mg/dL to non-numeric Ez's results) Medical, ) Albumin, Serum 3.7 g/dL Normal (applies [facility] (S t to non-numeric Ez's results) Medical, ) Globulin, Total 2.6 g/dL Normal (applies [facility] ( St to non-numeric Ez's results) [facility], ) Bilirubin.total <0.2 Normal (applies [facility] ( St [Mass/volume] in to non-numeric Ez's Serum or Plasma results) Medical, ) A/G Ratio 1.4 Normal (applies [facility] (St to non-numeric Ez's results) Medical, ) Alkaline 123 IU/L Above high [facility] (St Phosphatase, S normal Ez's [facility], ) Alanine 18 IU/L Normal (applies [facility] (St aminotransferase to non-numeric Ez's [Enzymatic results) Medical, activity/volume] in PC) Serum or Plasma Aspartate 13 IU/L Normal (applies [facility] (St aminotransferase to non-numeric Ez's [Enzymatic results) Medical, activity/volume] in ) Serum or Plasma Glucose 108 Above high [facility] (St [Mass/volume] in mg/dL normal Ez's Urine collected for Medical, unspecified PC) duration Urea nitrogen 35 mg/dL Above high [facility] (St [Mass/volume] in normal Ez's Serum or Plasma [facility], ) Creatinine 1.09 Above high [facility] (St [Interpretation] in mg/dL normal Ez's Urine [facility], ) eGFR If NonAfricn 56 Below low normal [facility] N (St Am mL/min/1 Ez's .73 [facility], ) eGFR If Africn Am 64 Normal (applies [facility] (St mL/min/1 to non-numeric Ez's .73 results) [facility], ) BUN/Creatinine 32 Above high [facility] (St Ratio normal Ez's [facility], ) Potassium 4.9 Normal (applies [facility] (St [Mass/volume] in mmol/L to non-numeric Ez's Blood results) [facility], ) Sodium 143 Normal (applies [facility] (St [Moles/volume] in mmol/L to non-numeric Ez's Serum or Plasma results) [facility], ) Carbon dioxide, 24 Normal (applies [facility] ( St total mmol/L to non-numeric Ez's [Moles/volume] in results) Medical, Serum or Plasma PC) Chloride 109 Above high [facility] (St [Moles/volume] in mmol/L normal Ez's Serum or Plasma [facility], ) Calcium 10.2 Normal (applies [facility] (St [Moles/volume] in mg/dL to non-numeric Ez's Urine collected for results) Medical, unspecified PC) duration Protein 7.0 g/dL Normal (applies [facility] (St [Mass/volume] in to non-numeric Ez's Serum or Plasma results) Medical, ) Microalbumin 4.0 g/dL Normal (applies [facility] (St [Mass/time] in to non-numeric Ez's Urine collected for results) Medical, unspecified PC) duration A/G Ratio 1.3 Normal (applies [facility] (St to non-numeric Ez's results) Medical, PC) Globulin, Total 3.0 g/dL Normal (applies [facility] ( St to non-numeric Ez's results) Medical, PC) Alkaline 124 IU/L Above high [facility] (St phosphatase normal Ez's [Enzymatic Medical, activity/volume] in PC) Serum, Plasma or Blood Bilirubin.total <0.2 Normal (applies [facility] ( St [Mass/volume] in to non-numeric Ez's Serum or Plasma results) Medical, PC) Aspartate 33 IU/L Normal (applies [facility] (St aminotransferase to non-numeric Ez's [Enzymatic results) Medical, activity/volume] in PC) Serum or Plasma Alanine 64 IU/L Above high [facility] (St aminotransferase normal Ez's [Enzymatic Medical, activity/volume] in PC) Serum or Plasma ID Date Data Source [id number] 06/23/2018 12:00:00 AM EDT [facility] Name Value Range Interpretation Code Description Data Sandie rce(s) Supporting Document(s ) ID Date Data Source [id number] 06/23/2018 12:00:00 AM EDT [facility] Name Value Range Interpretation Code Description Data Sandie rce(s) Supporting Document(s ) PDF Image . Normal (applies to [facility] (St non-numeric results) [facility]) ID Date Data Source [id number] 06/23/2018 12:00:00 AM EDT [facility] Name Value Range Interpretation Description Data Sup porting Code Source(s) Document(s ) Hemoglobin 12.6 % Above high normal [facility] (St A1c/Hemoglobin Ez's .total in Medical, PC) Blood ID Date Data Source [id number] 06/23/2018 12:00:00 AM EDT [facility] Name Value Range Interpretation Code Description Data Sandie rce(s) Supporting Document(s ) ID Date Data Source [id number] 06/23/2018 12:00:00 AM EDT [facility] Name Value Range Interpretation Code Description Data Sandie rce(s) Supporting Document(s ) PDF Image . Normal (applies to [facility] (St non-numeric results) [facility]) ID Date Data Source [id number] 06/23/2018 12:00:00 AM EDT [facility] Name Value Range Interpretation Description Data Sup porting Code Source(s) Document(s ) Hemoglobin 12.6 % Above high normal [facility] (St A1c/Hemoglobin Ez's .total in Medical, PC) Blood ID Date Data Source [id number] 06/23/2018 12:00:00 AM EDT [facility] Name Value Range Interpretation Code Description Data Sandie rce(s) Supporting Document(s ) ID Date Data Source [id number] 06/23/2018 12:00:00 AM EDT [facility] Name Value Range Interpretation Code Description Data Sandie rce(s) Supporting Document(s ) PDF Image . Normal (applies to [facility] (St non-numeric results) [facility]) ID Date Data Source [id number] 06/23/2018 12:00:00 AM EDT [facility] Name Value Range Interpretation Description Data Sup porting Code Source(s) Document(s ) Hemoglobin 12.6 % Above high normal [facility] (St A1c/Hemoglobin Ez's .total in Medical, PC) Blood ID Date Data Source [id number] 06/23/2018 12:00:00 AM EDT [facility] Name Value Range Interpretation Code Description Data Sandie rce(s) Supporting Document(s ) ID Date Data Source [id number] 06/23/2018 12:00:00 AM EDT [facility] Name Value Range Interpretation Code Description Data Sandie rce(s) Supporting Document(s ) PDF Image . Normal (applies to [facility] (St non-numeric results) [facility]) ID Date Data Source [id number] 06/23/2018 12:00:00 AM EDT [facility] Name Value Range Interpretation Description Data Sup porting Code Source(s) Document(s ) Hemoglobin 12.6 % Above high normal [facility] (St A1c/Hemoglobin Ez's .total in Medical, PC) Blood ID Date Data Source [id number] 06/23/2018 12:00:00 AM EDT [facility] Name Value Range Interpretation Code Description Data Sandie rce(s) Supporting Document(s ) ID Date Data Source [id number] 06/23/2018 12:00:00 AM EDT [facility] Name Value Range Interpretation Code Description Data Sandie rce(s) Supporting Document(s ) PDF Image . Normal (applies to [facility] (St non-numeric results) [facility]) ID Date Data Source [id number] 06/23/2018 12:00:00 AM EDT [facility] Name Value Range Interpretation Description Data Sup porting Code Source(s) Document(s ) Hemoglobin 12.6 % Above high normal [facility] (St A1c/Hemoglobin Ez's .total in Medical, PC) Blood ID Date Data Source [id number] 06/23/2018 12:00:00 AM EDT [facility] Name Value Range Interpretation Code Description Data Sandie rce(s) Supporting Document(s ) ID Date Data Source [id number] 06/23/2018 12:00:00 AM EDT [facility] Name Value Range Interpretation Code Description Data Sandie rce(s) Supporting Document(s ) PDF Image . Normal (applies to [facility] (St non-numeric results) [facility]) PDF Image . Normal (applies to [facility] (St non-numeric results) [facility]) PDF Image . Normal (applies to [facility] (St non-numeric results) [facility], [facility]) PDF Image . Normal (applies to [facility] (St non-numeric results) [facility], [facility]) PDF Image . Normal (applies to [facility] (St non-numeric results) [facility]) PDF Image . Normal (applies to [facility] (St non-numeric results) [facility], [facility]) ID Date Data Source [id number] 06/23/2018 12:00:00 AM EDT [facility] Name Value Range Interpretation Description Data Sup porting Code Source(s) Document(s ) Hemoglobin 8.5 % Above high normal [facility] (St A1c/Hemoglobin Ez's .total in Medical, PC) Blood Hemoglobin 12.4 % Above high normal [facility] (St A1c/Hemoglobin Ez's .total in Medical, ) Blood Hemoglobin 8.6 % Above high normal [facility] (St A1c/Hemoglobin Ez's .total in Medical, PC) Blood Hemoglobin 15.0 % Above high normal [facility] (St A1c/Hemoglobin Ez's .total in Medical, ) Blood Hemoglobin 12.6 % Above high normal [facility] (St A1c/Hemoglobin Ez's .total in Medical, ) Blood Hemoglobin 7.4 % Above high normal [facility] (St A1c/Hemoglobin Ez's .total in Medical, ) Blood ID Date Data Source [id number] 05/04/2018 12:00:00 AM EST [facility] Name Value Range Interpretation Code Description Data Sandie rce(s) Supporting Document(s ) ID Date Data Source [id number] 05/04/2018 12:00:00 AM EST [facility] Name Value Range Interpretation Code Description Data Sandie rce(s) Supporting Document(s ) PDF Image . Normal (applies to [facility] (St non-numeric results) [facility] [place] ID Date Data Source [id number] 05/04/2018 12:00:00 AM EST [facility] Name Value Range Interpretation Description Data Sup porting Code Source(s) Document(s ) Vitamin D, 22.4 Below low normal [facility] (St 25-Hydroxy ng/mL [facility] [place], ) ID Date Data Source [id number] 05/04/2018 12:00:00 AM EST [facility] Name Value Range Interpretation Code Description Data Sandie rce(s) Supporting Document(s ) TSH 2.630 Normal (applies to [facility] (St uIU/mL non-numeric results) [facility], ) ID Date Data Source [id number] 05/04/2018 12:00:00 AM EST [facility] Name Value Range Interpretation Description Data Sup porting Code Source(s) Document(s ) Hemoglobin 12.4 % Above high normal [facility] (St A1c/Hemoglobin Ez's .total in Medical, ) Blood ID Date Data Source [id number] 05/04/2018 12:00:00 AM EST [facility] ([facility], ) Name Value Range Interpretation Description Data Sup porting Code Source(s) Document(s ) Vitamin B12 798 pg/mL Normal (applies to [facility] (S t non-numeric Ez's results) Medical, ) Folate 9.0 ng/mL Normal (applies to [facility] (St (Folic non-numeric Ez's Acid), Serum results) Medical, ) ID Date Data Source [id number] 05/04/2018 12:00:00 AM EST [facility] ([facility], ) Name Value Range Interpretation Description Data Sup porting Code Source(s) Document(s ) Cholesterol 210 Above high normal [facility] (St [Mass/volume] in mg/dL Ez's Serum or Plasma [facility], ) HDL Cholesterol 44 mg/dL Normal (applies [facility] ( St to non-numeric Ez's results) [facility], ) Triglyceride 204 Above high normal [facility] (S t [Mass/volume] in mg/dL Ez's Serum or Plasma [facility], ) VLDL Cholesterol 41 mg/dL Above high normal [facility] N ([facility], ) LDL Cholesterol 125 Above high normal [facility] (St Calc mg/dL [facility], ) ID Date Data Source [id number] 05/04/2018 12:00:00 AM EST [facility] ([facility], ) Name Value Range Interpretation Description Data Sup porting Code Source(s) Document(s ) WBC >30 Abnormal (applies [facility] (St to non-numeric Ez's results) Medical, ) RBC 0-2 Normal (applies to [facility] (St non-numeric Ez's results) Medical, ) Epithelial 0-10 Normal (applies to [facility] (St Cells (non non-numeric Ez's renal) results) Medical, ) Mucus Threads Present Normal (applies to [facility] (St non-numeric Ez's results) Medical, ) Bacteria Many Abnormal (applies [facility] (St [Presence] in to non-numeric Ez's Prostatic results) Medical, ) fluid by Light microscopy ID Date Data Source [id number] 05/04/2018 12:00:00 AM EST [facility] Name Value Range Interpretation Description Data Sup porting Code Source(s) Document(s ) Specific gravity 1.020 Normal (applies [facility] (St of Pericardial to non-numeric Ez's fluid by results) Medical, Refractometry PC) pH of Lower 5.0 Normal (applies [facility] (St respiratory to non-numeric Ez's specimen results) Medical, PC) Urine-Color Yellow Normal (applies [facility] (St to non-numeric Ez's results) Medical, PC) Appearance of Cloudy Abnormal [facility] (St Abdomen (applies to Ez's non-numeric Medical, results) PC) WBC Esterase Abnormal [facility] (St (applies to Ez's non-numeric Medical, results) PC) Protein Trace Normal (applies [facility] (St [Mass/volume] in to non-numeric Ez's Lower results) Medical, respiratory PC) specimen Ketones Negative Normal (applies [facility] (St [Presence] in to non-numeric Ez's Blood by Tablet results) Medical, PC) Glucose Abnormal [facility] (St [Mass/volume] in (applies to Ez's Urine collected non-numeric Medical, for unspecified results) PC) duration Occult Blood Trace Abnormal [facility] (St (applies to Ez's non-numeric Medical, results) PC) Bilirubin Negative Normal (applies [facility] (St [Presence] in to non-numeric Ez's Peritoneal fluid results) Medical, PC) Nitrite, Urine Negative Normal (applies MEDGEN (S t to non-numeric Ez's results) [facility], [facility]) Urobilinogen,Dominique 0.2 EU/dL Normal (applies MEDGEN (St i-Qn to non-numeric Ez's results) Medical, [facility]) Microscopic See below: Normal (applies [facility] (St Examination to non-numeric Ez's results) [facility], [facility]) ID Date Data Source [id number] 05/04/2018 12:00:00 AM EST [facility] ([facility] Name Value Range Interpretation Description Data Sup porting Code Source(s) Document(s ) Glucose 361 Above high MEDGEN (St [Mass/volume] in mg/dL normal Ez's Urine collected for Medical, unspecified PC) duration Urea nitrogen 33 mg/dL Above high [facility]GEN (St [Mass/volume] in normal Ez's Serum or Plasma Medical, PC) Creatinine 1.01 Above high [facility]GEN (St [Interpretation] in mg/dL normal Ez's Urine Medical, PC) eGFR If NonAfricn 61 Normal (applies MEDGEN (St Am mL/min/1 to non-numeric Ez's .73 results) Medical, PC) eGFR If Africn Am 70 Normal (applies [facility]GEN (St mL/min/1 to non-numeric Ez's .73 results) Medical, PC) BUN/Creatinine 33 Above high MEDGEN (St Ratio normal Ez's Medical, PC) Sodium 138 Normal (applies [facility]GEN (St [Moles/volume] in mmol/L to non-numeric Ez's Serum or Plasma results) Medical, PC) Potassium 5.1 Normal (applies [facility] (St [Mass/volume] in mmol/L to non-numeric Ez's Blood results) Medical, PC) Carbon dioxide, 23 Normal (applies MEDGEN ( St total mmol/L to non-numeric Ez's [Moles/volume] in results) Medical, Serum or Plasma PC) Chloride 99 Normal (applies [facility]GEN (St [Moles/volume] in mmol/L to non-numeric Ez's Serum or Plasma results) Medical, PC) Calcium 10.9 Above high [facility]GEN (St [Moles/volume] in mg/dL normal Ez's Urine collected for Medical, unspecified PC) duration Protein 6.8 g/dL Normal (applies [facility]GEN (St [Mass/volume] in to non-numeric Ez's Serum or Plasma results) Medical, PC) Microalbumin 4.1 g/dL Normal (applies MEDGEN (St [Mass/time] in to non-numeric Ze's Urine collected for results) Medical, unspecified PC) duration Globulin, Total 2.7 g/dL Normal (applies [facility]GEN ( St to non-numeric Ez's results) Medical, PC) A/G Ratio 1.5 Normal (applies [facility]GEN (St to non-numeric Ez's results) Medical, PC) Bilirubin.total <0.2 Normal (applies [facility]GEN ( St [Mass/volume] in to non-numeric Ez's Serum or Plasma results) Medical, PC) Alkaline 70 IU/L Normal (applies [facility]GEN (St phosphatase to non-numeric Ez's [Enzymatic results) Medical, activity/volume] in PC) Serum, Plasma or Blood Alanine 17 IU/L Normal (applies [facility]GEN (St aminotransferase to non-numeric Ez's [Enzymatic results) Medical, activity/volume] in ) Serum or Plasma Aspartate 14 IU/L Normal (applies [facility]GEN (St aminotransferase to non-numeric Ez's [Enzymatic results) Medical, activity/volume] in ) Serum or Plasma ID Date Data Source [id number] 05/04/2018 12:00:00 AM EST [facility] ([facility], ) Name Value Range Interpretation Description Data Sup porting Code Source(s) Document(s ) Leukocytes 10.7 Normal (applies [facility]GEN (St [#/volume] in x10E3/uL to non-numeric Ez's Blood by results) Medical, ) Automated count Erythrocytes 4.28 Normal (applies [facility]GEN (St [#/volume] in x10E6/uL to non-numeric Ez's Blood by results) Medical, ) Automated count Hematocrit 35.6 % Normal (applies [facility]GEN (St [Volume to non-numeric Ez's Fraction] of results) Medical, ) Blood by Automated count Hemoglobin 11.8 Normal (applies [facility]GEN (St [Mass/volume] in g/dL to non-numeric Ez's Blood results) Medical, ) MCV 83 fL Normal (applies MEDGEN (St to non-numeric Ez's results) [facility], ) MCH 27.6 pg Normal (applies MEDGEN (St to non-numeric Ez's results) [facility], ) MCHC 33.1 Normal (applies [facility]GEN (St g/dL to non-numeric Ez's results) Medical, ) RDW 13.5 % Normal (applies [facility]GEN (St to non-numeric Ez's results) Medical, ) Platelets 282 Normal (applies [facility]GEN (St [#/area] in x10E3/uL to non-numeric Ez's Blood by results) Medical, ) Microscopy high power field Neutrophils [#] 71 % Normal (applies MEDGEN ( St in Body fluid by to non-numeric Ez's Manual count results) [facility], ) Lymphs 20 % Normal (applies [facility]GEN (St to non-numeric Ez's results) [facility], ) Eos 2 % Normal (applies [facility]GEN (St to non-numeric Ez's results) Medical, ) Monocytes 6 % Normal (applies [facility]GEN (St [#/volume] in to non-numeric Ez's Cord blood results) [facility], ) Basos 1 % Normal (applies [facility]GEN (St to non-numeric Ez's results) [facility], ) Neutrophils 7.7 Above high normal [facility]GEN (St (Absolute) x10E3/uL Ez's [facility], ) Monocytes(Absolu 0.7 Normal (applies [facility]GEN (St te) x10E3/uL to non-numeric Ez's results) [facility], ) Lymphs 2.1 Normal (applies [facility]GEN (St (Absolute) x10E3/uL to non-numeric Ez's results) [facility], ) Eos (Absolute) 0.2 Normal (applies [facility]GEN (S t x10E3/uL to non-numeric Ez's results) [facility], ) Baso (Absolute) 0.1 Normal (applies [facility]GEN ( St x10E3/uL to non-numeric Ez's results) [facility], ) Immature 0 % Normal (applies [facility]GEN (St Granulocytes to non-numeric Ez's results) [facility], ) Immature Grans 0.0 Normal (applies [facility]GEN (S t (Abs) x10E3/uL to non-numeric Ez's results) [facility], ) ID Date Data Source [id number] 05/04/2018 12:00:00 AM EST [facility] ([facility], ) Name Value Range Interpretation Code Description Data Sandie rce(s) Supporting Document(s ) ID Date Data Source [id number] 05/04/2018 12:00:00 AM EST [facility] ([facility], ) Name Value Range Interpretation Code Description Data Sandie rce(s) Supporting Document(s ) PDF Image . Normal (applies to [facility] (St non-numeric results) [facility], ) ID Date Data Source [id number] 05/04/2018 12:00:00 AM EST [facility] ([facility], ) Name Value Range Interpretation Description Data Sup porting Code Source(s) Document(s ) Vitamin D, 22.4 Below low normal MEDGEN (St 25-Hydroxy ng/mL [facility], ) ID Date Data Source [id number] 05/04/2018 12:00:00 AM EST [facility] ([facility], ) Name Value Range Interpretation Code Description Data Sandie rce(s) Supporting Document(s ) TSH 2.630 Normal (applies to MEDGEN (St uIU/mL non-numeric results) [facility], ) ID Date Data Source [id number] 05/04/2018 12:00:00 AM EST MEDGEN ([facility], ) Name Value Range Interpretation Description Data Sup porting Code Source(s) Document(s ) Hemoglobin 12.4 % Above high normal MEDGEN (St A1c/Hemoglobin Ez's .total in [facility], ) Blood ID Date Data Source [id number] 05/04/2018 12:00:00 AM EST MEDGEN ([facility], ) Name Value Range Interpretation Description Data Sup porting Code Source(s) Document(s ) Vitamin B12 798 pg/mL Normal (applies to MEDGEN (S t non-numeric Ez's results) [facility], ) Folate 9.0 ng/mL Normal (applies to [facility] (St (Folic non-numeric Ez's Acid), Serum results) [facility], ) ID Date Data Source [id number] 05/04/2018 12:00:00 AM EST MEDGEN ([facility], ) Name Value Range Interpretation Description Data Sup porting Code Source(s) Document(s ) Cholesterol 210 Above high normal MEDGEN (St [Mass/volume] in mg/dL Ez's Serum or Plasma [facility], ) Triglyceride 204 Above high normal [facility]GEN (S t [Mass/volume] in mg/dL [facility] Serum or Plasma [facility], ) HDL Cholesterol 44 mg/dL Normal (applies MEDGEN ( St to non-numeric Ez's results) [facility], ) VLDL Cholesterol 41 mg/dL Above high normal MEDGE N ([facility], ) LDL Cholesterol 125 Above high normal MEDGEN (St Calc mg/dL [facility], ) ID Date Data Source [id number] 05/04/2018 12:00:00 AM EST MEDGEN ([facility], ) Name Value Range Interpretation Description Data Sup porting Code Source(s) Document(s ) WBC >30 Abnormal (applies MEDGEN (St to non-numeric Ez's results) [facility], ) RBC 0-2 Normal (applies to [facility] (St non-numeric Ez's results) Medical, PC) Epithelial 0-10 Normal (applies to MEDGEN (St Cells (non non-numeric Ez's renal) results) Medical, PC) Mucus Threads Present Normal (applies to [facility] (St non-numeric Ez's results) Medical, PC) Bacteria Many Abnormal (applies [facility]GEN (St [Presence] in to non-numeric Ez's Prostatic results) Medical, PC) fluid by Light microscopy ID Date Data Source [id number] 05/04/2018 12:00:00 AM EST [facility] ([facility]) Name Value Range Interpretation Description Data Sup porting Code Source(s) Document(s ) Specific gravity 1.020 Normal (applies [facility]GEN (St of Pericardial to non-numeric Ez's fluid by results) Medical, Refractometry PC) pH of Lower 5.0 Normal (applies [facility] (St respiratory to non-numeric Ez's specimen results) Medical, PC) Urine-Color Yellow Normal (applies [facility]GEN (St to non-numeric Ez's results) Medical, PC) Appearance of Cloudy Abnormal MEDGEN (St Abdomen (applies to Ez's non-numeric Medical, results) PC) WBC Esterase Abnormal MEDGEN (St (applies to Ez's non-numeric Medical, results) PC) Protein Trace Normal (applies [facility]GEN (St [Mass/volume] in to non-numeric Ez's Lower results) Medical, respiratory PC) specimen Glucose Abnormal MEDGEN (St [Mass/volume] in (applies to Ez's Urine collected non-numeric Medical, for unspecified results) PC) duration Ketones Negative Normal (applies [facility]GEN (St [Presence] in to non-numeric Ez's Blood by Tablet results) Medical, PC) Occult Blood Trace Abnormal MEDGEN (St (applies to Ez's non-numeric Medical, results) PC) Bilirubin Negative Normal (applies [facility]GEN (St [Presence] in to non-numeric Ez's Peritoneal fluid results) Medical, PC) Urobilinogen,Dominique 0.2 EU/dL Normal (applies [facility]GEN (St i-Qn to non-numeric Ez's results) Medical, PC) Microscopic See below: Normal (applies [facility]GEN (St Examination to non-numeric Ez's results) Medical, PC) Nitrite, Urine Negative Normal (applies [facility]GEN (S t to non-numeric Ez's results) Medical, PC) ID Date Data Source [id number] 05/04/2018 12:00:00 AM EST [facility] ([facility], ) Name Value Range Interpretation Description Data Sup porting Code Source(s) Document(s ) Glucose 361 Above high MEDGEN (St [Mass/volume] in mg/dL normal Ez's Urine collected for Medical, unspecified PC) duration Urea nitrogen 33 mg/dL Above high MEDGEN (St [Mass/volume] in normal Ez's Serum or Plasma Medical, ) Creatinine 1.01 Above high [facility]GEN (St [Interpretation] in mg/dL normal Ez's Urine Medical, ) eGFR If NonAfricn 61 Normal (applies [facility]GEN (St Am mL/min/1 to non-numeric Ez's .73 results) Medical, ) eGFR If Africn Am 70 Normal (applies [facility]GEN (St mL/min/1 to non-numeric Ez's .73 results) Medical, ) BUN/Creatinine 33 Above high MEDGEN (St Ratio normal Ez's Medical, ) Sodium 138 Normal (applies [facility]GEN (St [Moles/volume] in mmol/L to non-numeric Ez's Serum or Plasma results) Medical, PC) Potassium 5.1 Normal (applies [facility]GEN (St [Mass/volume] in mmol/L to non-numeric Ez's Blood results) Medical, ) Chloride 99 Normal (applies [facility]GEN (St [Moles/volume] in mmol/L to non-numeric Ez's Serum or Plasma results) Medical, ) Carbon dioxide, 23 Normal (applies MEDGEN ( St total mmol/L to non-numeric Ez's [Moles/volume] in results) Medical, Serum or Plasma PC) Protein 6.8 g/dL Normal (applies [facility]GEN (St [Mass/volume] in to non-numeric Ez's Serum or Plasma results) Medical, ) Calcium 10.9 Above high MEDGEN (St [Moles/volume] in mg/dL normal Ez's Urine collected for Medical, unspecified PC) duration Microalbumin 4.1 g/dL Normal (applies MEDGEN (St [Mass/time] in to non-numeric Ez's Urine collected for results) Medical, unspecified PC) duration Globulin, Total 2.7 g/dL Normal (applies MEDGEN ( St to non-numeric Ez's results) Medical, PC) A/G Ratio 1.5 Normal (applies MEDGEN (St to non-numeric Ez's results) Medical, ) Bilirubin.total <0.2 Normal (applies MEDGEN ( St [Mass/volume] in to non-numeric Ez's Serum or Plasma results) [facility], ) Alkaline 70 IU/L Normal (applies MEDGEN (St phosphatase to non-numeric Ez's [Enzymatic results) Medical, activity/volume] in ) Serum, Plasma or Blood Aspartate 14 IU/L Normal (applies MEDGEN (St aminotransferase to non-numeric Ez's [Enzymatic results) Medical, activity/volume] in ) Serum or Plasma Alanine 17 IU/L Normal (applies MEDGEN (St aminotransferase to non-numeric Ez's [Enzymatic results) Medical, activity/volume] in ) Serum or Plasma ID Date Data Source [id number] 05/04/2018 12:00:00 AM EST [facility] ([facility], ) Name Value Range Interpretation Description Data Sup porting Code Source(s) Document(s ) Leukocytes 10.7 Normal (applies MEDGEN (St [#/volume] in x10E3/uL to non-numeric Ez's Blood by results) Medical, ) Automated count Erythrocytes 4.28 Normal (applies MEDGEN (St [#/volume] in x10E6/uL to non-numeric Ez's Blood by results) [facility], ) Automated count Hemoglobin 11.8 Normal (applies MEDGEN (St [Mass/volume] in g/dL to non-numeric Ez's Blood results) [facility], ) Hematocrit 35.6 % Normal (applies MEDGEN (St [Volume to non-numeric Ez's Fraction] of results) [facility], ) Blood by Automated count MCV 83 fL Normal (applies MEDGEN (St to non-numeric Ez's results) Medical, ) MCH 27.6 pg Normal (applies MEDGEN (St to non-numeric Ez's results) Medical, ) MCHC 33.1 Normal (applies MEDGEN (St g/dL to non-numeric Ez's results) [facility], ) RDW 13.5 % Normal (applies MEDGEN (St to non-numeric Ez's results) [facility], ) Platelets 282 Normal (applies MEDGEN (St [#/area] in x10E3/uL to non-numeric Ez's Blood by results) [facility], ) Microscopy high power field Neutrophils [#] 71 % Normal (applies MEDGEN ( St in Body fluid by to non-numeric Ez's Manual count results) [facility], ) Lymphs 20 % Normal (applies MEDGEN (St to non-numeric Ez's results) [facility], ) Monocytes 6 % Normal (applies MEDGEN (St [#/volume] in to non-numeric Ez's Cord blood results) [facility], ) Eos 2 % Normal (applies MEDGEN (St to non-numeric Ez's results) [facility], ) Basos 1 % Normal (applies MEDGEN (St to non-numeric Ez's results) [facility], ) Neutrophils 7.7 Above high normal MEDGEN (St (Absolute) x10E3/uL Ez's [facility], ) Lymphs 2.1 Normal (applies MEDGEN (St (Absolute) x10E3/uL to non-numeric Ez's results) [facility], ) Monocytes(Absolu 0.7 Normal (applies MEDGEN (St te) x10E3/uL to non-numeric Ez's results) [facility], ) Eos (Absolute) 0.2 Normal (applies MEDGEN (S t x10E3/uL to non-numeric Ez's results) [facility], ) Baso (Absolute) 0.1 Normal (applies MEDGEN ( St x10E3/uL to non-numeric Ez's results) [facility], ) Immature 0 % Normal (applies MEDGEN (St Granulocytes to non-numeric Ez's results) [facility], ) Immature Grans 0.0 Normal (applies MEDGEN (S t (Abs) x10E3/uL to non-numeric Ez's results) [facility], ) ID Date Data Source [id number] 05/04/2018 12:00:00 AM EST [facility] ([facility], ) Name Value Range Interpretation Code Description Data Sandie rce(s) Supporting Document(s ) ID Date Data Source [id number] 05/04/2018 12:00:00 AM EST [facility] ([facility], ) Name Value Range Interpretation Code Description Data Sandie rce(s) Supporting Document(s ) PDF Image . Normal (applies to MEDGEN (St non-numeric results) Ez's [facility]) ID Date Data Source [id number] 05/04/2018 12:00:00 AM EST [facility] ([facility], ) Name Value Range Interpretation Description Data Sup porting Code Source(s) Document(s ) Vitamin D, 22.4 Below low normal MEDGEN (St 25-Hydroxy ng/mL [facility], ) ID Date Data Source [id number] 05/04/2018 12:00:00 AM EST MEDGEN ([facility], ) Name Value Range Interpretation Code Description Data Sandie rce(s) Supporting Document(s ) TSH 2.630 Normal (applies to MEDGEN (St uIU/mL non-numeric results) [facility] [place] [facility], ) ID Date Data Source [id number] 05/04/2018 12:00:00 AM EST MEDGEN ([facility], ) Name Value Range Interpretation Description Data Sup porting Code Source(s) Document(s ) Hemoglobin 12.4 % Above high normal MEDGEN (St A1c/Hemoglobin [facility] .total in [facility], ) Blood ID Date Data Source [id number] 05/04/2018 12:00:00 AM EST MEDGEN ([facility], ) Name Value Range Interpretation Description Data Sup porting Code Source(s) Document(s ) Vitamin B12 798 pg/mL Normal (applies to MEDGEN (S t non-numeric Ez's results) [facility], ) Folate 9.0 ng/mL Normal (applies to MEDGEN (St (Folic non-numeric Ez's Acid), Serum results) [facility], ) ID Date Data Source [id number] 05/04/2018 12:00:00 AM EST MEDGEN ([facility], ) Name Value Range Interpretation Description Data Sup porting Code Source(s) Document(s ) Cholesterol 210 Above high normal MEDGEN (St [Mass/volume] in mg/dL [facility] Serum or Plasma [facility], ) Triglyceride 204 Above high normal MEDGEN (S t [Mass/volume] in mg/dL [facility] Serum or Plasma [facility], ) VLDL Cholesterol 41 mg/dL Above high normal MEDGE N ([facility], ) HDL Cholesterol 44 mg/dL Normal (applies MEDGEN ( St to non-numeric Ez's results) [facility], ) LDL Cholesterol 125 Above high normal MEDGEN (St Calc mg/dL [facility]) ID Date Data Source [id number] 05/04/2018 12:00:00 AM EST [facility] ([facility]) Name Value Range Interpretation Description Data Sup porting Code Source(s) Document(s ) RBC 0-2 Normal (applies to MEDGEN (St non-numeric Ez's results) Medical, PC) WBC >30 Abnormal (applies MEDGEN (St to non-numeric Ez's results) Medical, PC) Mucus Threads Present Normal (applies to MEDGEN (St non-numeric Ez's results) Medical, PC) Epithelial 0-10 Normal (applies to MEDGEN (St Cells (non non-numeric Ez's renal) results) Medical, PC) Bacteria Many Abnormal (applies MEDGEN (St [Presence] in to non-numeric Ez's Prostatic results) Medical, PC) fluid by Light microscopy ID Date Data Source [id number] 05/04/2018 12:00:00 AM EST [facility] ([facility]) Name Value Range Interpretation Description Data Sup porting Code Source(s) Document(s ) Specific gravity 1.020 Normal (applies MEDGEN (St of Pericardial to non-numeric Ez's fluid by results) Medical, Refractometry PC) Urine-Color Yellow Normal (applies MEDGEN (St to non-numeric Ez's results) Medical, PC) pH of Lower 5.0 Normal (applies MEDGEN (St respiratory to non-numeric Ez's specimen results) Medical, PC) WBC Esterase Abnormal MEDGEN (St (applies to Ez's non-numeric Medical, results) PC) Appearance of Cloudy Abnormal MEDGEN (St Abdomen (applies to Ez's non-numeric Medical, results) PC) Glucose Abnormal MEDGEN (St [Mass/volume] in (applies to Ez's Urine collected non-numeric Medical, for unspecified results) PC) duration Protein Trace Normal (applies MEDGEN (St [Mass/volume] in to non-numeric Ez's Lower results) Medical, respiratory PC) specimen Occult Blood Trace Abnormal MEDGEN (St (applies to Ez's non-numeric Medical, results) PC) Ketones Negative Normal (applies MEDGEN (St [Presence] in to non-numeric Ez's Blood by Tablet results) Medical, PC) Bilirubin Negative Normal (applies MEDGEN (St [Presence] in to non-numeric Ez's Peritoneal fluid results) Medical, PC) Nitrite, Urine Negative Normal (applies MEDGEN (S t to non-numeric Ez's results) Medical, ) Urobilinogen,Dominique 0.2 EU/dL Normal (applies MEDGEN (St i-Qn to non-numeric Ez's results) Medical, ) Microscopic See below: Normal (applies MEDGEN (St Examination to non-numeric Ez's results) Medical, ) ID Date Data Source [id number] 05/04/2018 12:00:00 AM EST [facility] ([facility], ) Name Value Range Interpretation Description Data Sup porting Code Source(s) Document(s ) Glucose 361 Above high MEDGEN (St [Mass/volume] in mg/dL normal Ez's Urine collected for Medical, unspecified PC) duration Urea nitrogen 33 mg/dL Above high MEDGEN (St [Mass/volume] in normal Ez's Serum or Plasma Medical, ) Creatinine 1.01 Above high MEDGEN (St [Interpretation] in mg/dL normal Ez's Urine Medical, ) eGFR If NonAfricn 61 Normal (applies MEDGEN (St Am mL/min/1 to non-numeric Ez's .73 results) Medical, ) eGFR If Africn Am 70 Normal (applies MEDGEN (St mL/min/1 to non-numeric Ez's .73 results) Medical, ) BUN/Creatinine 33 Above high MEDGEN (St Ratio normal Ez's Medical, ) Sodium 138 Normal (applies MEDGEN (St [Moles/volume] in mmol/L to non-numeric Ez's Serum or Plasma results) Medical, ) Potassium 5.1 Normal (applies MEDGEN (St [Mass/volume] in mmol/L to non-numeric Ez's Blood results) Medical, ) Carbon dioxide, 23 Normal (applies MEDGEN ( St total mmol/L to non-numeric Ez's [Moles/volume] in results) Medical, Serum or Plasma PC) Chloride 99 Normal (applies MEDGEN (St [Moles/volume] in mmol/L to non-numeric Ez's Serum or Plasma results) Medical, ) Calcium 10.9 Above high MEDGEN (St [Moles/volume] in mg/dL normal Ez's Urine collected for Medical, unspecified PC) duration Protein 6.8 g/dL Normal (applies MEDGEN (St [Mass/volume] in to non-numeric Ez's Serum or Plasma results) Medical, ) Globulin, Total 2.7 g/dL Normal (applies MEDGEN ( St to non-numeric Ez's results) Medical, ) Microalbumin 4.1 g/dL Normal (applies MEDGEN (St [Mass/time] in to non-numeric Ez's Urine collected for results) [facility], unspecified PC) duration A/G Ratio 1.5 Normal (applies MEDGEN (St to non-numeric Ez's results) Medical, ) Bilirubin.total <0.2 Normal (applies MEDGEN ( St [Mass/volume] in to non-numeric Ez's Serum or Plasma results) Medical, ) Alkaline 70 IU/L Normal (applies MEDGEN (St phosphatase to non-numeric Ez's [Enzymatic results) Medical, activity/volume] in PC) Serum, Plasma or Blood Aspartate 14 IU/L Normal (applies MEDGEN (St aminotransferase to non-numeric Ez's [Enzymatic results) Medical, activity/volume] in PC) Serum or Plasma Alanine 17 IU/L Normal (applies MEDGEN (St aminotransferase to non-numeric Ez's [Enzymatic results) Medical, activity/volume] in PC) Serum or Plasma ID Date Data Source [id number] 05/04/2018 12:00:00 AM EST [facility] ([facility], ) Name Value Range Interpretation Description Data Sup porting Code Source(s) Document(s ) Erythrocytes 4.28 Normal (applies MEDGEN (St [#/volume] in x10E6/uL to non-numeric Ez's Blood by results) Medical, ) Automated count Leukocytes 10.7 Normal (applies MEDGEN (St [#/volume] in x10E3/uL to non-numeric Ez's Blood by results) Medical, ) Automated count Hematocrit 35.6 % Normal (applies MEDGEN (St [Volume to non-numeric Ez's Fraction] of results) Medical, ) Blood by Automated count Hemoglobin 11.8 Normal (applies MEDGEN (St [Mass/volume] in g/dL to non-numeric Ez's Blood results) Medical, ) MCH 27.6 pg Normal (applies MEDGEN (St to non-numeric Ez's results) Medical, ) MCV 83 fL Normal (applies MEDGEN (St to non-numeric Ez's results) Medical, PC) RDW 13.5 % Normal (applies MEDGEN (St to non-numeric Ez's results) Medical, ) MCHC 33.1 Normal (applies MEDGEN (St g/dL to non-numeric Ez's results) [facility], ) Platelets 282 Normal (applies MEDGEN (St [#/area] in x10E3/uL to non-numeric Ez's Blood by results) [facility], ) Microscopy high power field Neutrophils [#] 71 % Normal (applies MEDGEN ( St in Body fluid by to non-numeric Ez's Manual count results) [facility], ) Lymphs 20 % Normal (applies MEDGEN (St to non-numeric Ez's results) Medical, ) Monocytes 6 % Normal (applies MEDGEN (St [#/volume] in to non-numeric Ez's Cord blood results) [facility], ) Eos 2 % Normal (applies MEDGEN (St to non-numeric Ez's results) [facility], ) Neutrophils 7.7 Above high normal MEDGEN (St (Absolute) x10E3/uL Ez's [facility], ) Basos 1 % Normal (applies MEDGEN (St to non-numeric Ez's results) [facility], ) Monocytes(Absolu 0.7 Normal (applies MEDGEN (St te) x10E3/uL to non-numeric Ez's results) [facility], ) Lymphs 2.1 Normal (applies MEDGEN (St (Absolute) x10E3/uL to non-numeric Ez's results) [facility], ) Baso (Absolute) 0.1 Normal (applies MEDGEN ( St x10E3/uL to non-numeric Ez's results) Medical, ) Eos (Absolute) 0.2 Normal (applies MEDGEN (S t x10E3/uL to non-numeric Ez's results) [facility], ) Immature 0 % Normal (applies MEDGEN (St Granulocytes to non-numeric Ez's results) [facility], ) Immature Grans 0.0 Normal (applies MEDGEN (S t (Abs) x10E3/uL to non-numeric Ez's results) [facility], ) ID Date Data Source [id number] 05/04/2018 12:00:00 AM EST [facility] ([facility], ) Name Value Range Interpretation Code Description Data Sandie rce(s) Supporting Document(s ) ID Date Data Source [id number] 05/04/2018 12:00:00 AM EST [facility] ([facility] Name Value Range Interpretation Code Description Data Sandie rce(s) Supporting Document(s ) PDF Image . Normal (applies to MEDGEN (St non-numeric results) [facility], ) ID Date Data Source [id number] 05/04/2018 12:00:00 AM EST MED[facility] ([facility], ) Name Value Range Interpretation Description Data Sup porting Code Source(s) Document(s ) Vitamin D, 22.4 Below low normal MEDGEN (St 25-Hydroxy ng/mL [facility], ) ID Date Data Source [id number] 05/04/2018 12:00:00 AM EST MEDGEN ([facility], ) Name Value Range Interpretation Code Description Data Sandie rce(s) Supporting Document(s ) TSH 2.630 Normal (applies to MEDGEN (St uIU/mL non-numeric results) [facility]) ID Date Data Source [id number] 05/04/2018 12:00:00 AM EST MEDGEN ([facility], ) Name Value Range Interpretation Description Data Sup porting Code Source(s) Document(s ) Hemoglobin 12.4 % Above high normal MEDGEN (St A1c/Hemoglobin [facility]'s .total in [facility], ) Blood ID Date Data Source [id number] 05/04/2018 12:00:00 AM EST MEDGEN ([facility], ) Name Value Range Interpretation Description Data Sup porting Code Source(s) Document(s ) Vitamin B12 798 pg/mL Normal (applies to MEDGEN (S t non-numeric Ez's results) [facility], ) Folate 9.0 ng/mL Normal (applies to MEDGEN (St (Folic non-numeric Ez's Acid), Serum results) [facility], ) ID Date Data Source [id number] 05/04/2018 12:00:00 AM EST MEDGEN ([facility], ) Name Value Range Interpretation Description Data Sup porting Code Source(s) Document(s ) Cholesterol 210 Above high normal MEDGEN (St [Mass/volume] in mg/dL [facility] Serum or Plasma [facility], ) Triglyceride 204 Above high normal MEDGEN (S t [Mass/volume] in mg/dL Ez's Serum or Plasma Medical, ) HDL Cholesterol 44 mg/dL Normal (applies MEDGEN ( St to non-numeric Ez's results) [facility]) VLDL Cholesterol 41 mg/dL Above high normal MEDGE N ([facility], ) LDL Cholesterol 125 Above high normal MEDGEN (St Calc mg/dL [facility], ) ID Date Data Source [id number] 05/04/2018 12:00:00 AM EST MEDGEN ([facility], ) Name Value Range Interpretation Description Data Sup porting Code Source(s) Document(s ) RBC 0-2 Normal (applies to MEDGEN (St non-numeric Ez's results) [facility]) WBC >30 Abnormal (applies MEDGEN (St to non-numeric Ez's results) [facility], [facility]) Epithelial 0-10 Normal (applies to MEDGEN (St Cells (non non-numeric Ez's renal) results) [facility], [facility]) Mucus Threads Present Normal (applies to MEDGEN (St non-numeric Ez's results) [facility], [facility]) Bacteria Many Abnormal (applies MEDGEN (St [Presence] in to non-numeric Ez's Prostatic results) Medical, ) fluid by Light microscopy ID Date Data Source [id number] 05/04/2018 12:00:00 AM EST MEDGEN ([facility], ) Name Value Range Interpretation Description Data Sup porting Code Source(s) Document(s ) pH of Lower 5.0 Normal (applies MEDGEN (St respiratory to non-numeric Ez's specimen results) [facility], [facility]) Specific gravity 1.020 Normal (applies MEDGEN (St of Pericardial to non-numeric Ez's fluid by results) [facility], Refractometry [facility]) Urine-Color Yellow Normal (applies MEDGEN (St to non-numeric Ez's results) [facility], [facility]) Appearance of Cloudy Abnormal MEDGEN (St Abdomen (applies to Ez's non-numeric Medical, results) PC) WBC Esterase Abnormal MEDGEN (St (applies to Ez's non-numeric Medical, results) PC) Glucose Abnormal MEDGEN (St [Mass/volume] in (applies to Ez's Urine collected non-numeric Medical, for unspecified results) PC) duration Protein Trace Normal (applies MEDGEN (St [Mass/volume] in to non-numeric Ez's Lower results) Medical, respiratory PC) specimen Ketones Negative Normal (applies MEDGEN (St [Presence] in to non-numeric Ez's Blood by Tablet results) [facility], [facility]) Occult Blood Trace Abnormal MEDGEN (St (applies to Ez's non-numeric Medical, results) PC) Bilirubin Negative Normal (applies MEDGEN (St [Presence] in to non-numeric Ez's Peritoneal fluid results) [facility], [facility]) Urobilinogen,Dominique 0.2 EU/dL Normal (applies MEDGEN (St i-Qn to non-numeric Ez's results) [facility], [facility]) Nitrite, Urine Negative Normal (applies MEDGEN (S t to non-numeric Ez's results) [facility], [facility]) Microscopic See below: Normal (applies MEDGEN (St Examination to non-numeric Ez's results) [facility]) ID Date Data Source [id number] 05/04/2018 12:00:00 AM EST MED[facility] ([facility] Name Value Range Interpretation Description Data Sup porting Code Source(s) Document(s ) Glucose 361 Above high MEDGEN (St [Mass/volume] in mg/dL normal Ez's Urine collected for Medical, unspecified PC) duration Creatinine 1.01 Above high MEDGEN (St [Interpretation] in mg/dL normal Ez's Urine Medical, PC) Urea nitrogen 33 mg/dL Above high MEDGEN (St [Mass/volume] in normal Ez's Serum or Plasma Medical, PC) eGFR If NonAfricn 61 Normal (applies MEDGEN (St Am mL/min/1 to non-numeric Ez's .73 results) Medical, PC) eGFR If Africn Am 70 Normal (applies MEDGEN (St mL/min/1 to non-numeric Ez's .73 results) [facility], [facility]) BUN/Creatinine 33 Above high MEDGEN (St Ratio normal [facility], [facility]) Sodium 138 Normal (applies MEDGEN (St [Moles/volume] in mmol/L to non-numeric Ez's Serum or Plasma results) [facility], [facility]) Potassium 5.1 Normal (applies MEDGEN (St [Mass/volume] in mmol/L to non-numeric Ez's Blood results) [facility], [facility]) Chloride 99 Normal (applies MEDGEN (St [Moles/volume] in mmol/L to non-numeric Ez's Serum or Plasma results) [facility], [facility]) Carbon dioxide, 23 Normal (applies MEDGEN ( St total mmol/L to non-numeric Ez's [Moles/volume] in results) Medical, Serum or Plasma PC) Calcium 10.9 Above high MEDGEN (St [Moles/volume] in mg/dL normal Ez's Urine collected for Medical, unspecified PC) duration Protein 6.8 g/dL Normal (applies MEDGEN (St [Mass/volume] in to non-numeric Ez's Serum or Plasma results) Medical, ) Microalbumin 4.1 g/dL Normal (applies MEDGEN (St [Mass/time] in to non-numeric Ez's Urine collected for results) Medical, unspecified PC) duration Globulin, Total 2.7 g/dL Normal (applies MEDGEN ( St to non-numeric Ez's results) [facility], [facility]) A/G Ratio 1.5 Normal (applies MEDGEN (St to non-numeric Ez's results) [facility], [facility]) Bilirubin.total <0.2 Normal (applies MEDGEN ( St [Mass/volume] in to non-numeric Ez's Serum or Plasma results) [facility], [facility]) Alkaline 70 IU/L Normal (applies MEDGEN (St phosphatase to non-numeric Ez's [Enzymatic results) Medical, activity/volume] in PC) Serum, Plasma or Blood Aspartate 14 IU/L Normal (applies MEDGEN (St aminotransferase to non-numeric Ez's [Enzymatic results) Medical, activity/volume] in PC) Serum or Plasma Alanine 17 IU/L Normal (applies MEDGEN (St aminotransferase to non-numeric Ez's [Enzymatic results) Medical, activity/volume] in PC) Serum or Plasma ID Date Data Source [id number] 05/04/2018 12:00:00 AM EST [facility] ([facility], ) Name Value Range Interpretation Description Data Sup porting Code Source(s) Document(s ) Leukocytes 10.7 Normal (applies MEDGEN (St [#/volume] in x10E3/uL to non-numeric Ez's Blood by results) Medical, ) Automated count Erythrocytes 4.28 Normal (applies MEDGEN (St [#/volume] in x10E6/uL to non-numeric Ez's Blood by results) Medical, ) Automated count Hemoglobin 11.8 Normal (applies MEDGEN (St [Mass/volume] in g/dL to non-numeric Ez's Blood results) Medical, ) Hematocrit 35.6 % Normal (applies MEDGEN (St [Volume to non-numeric Ez's Fraction] of results) [facility], ) Blood by Automated count MCV 83 fL Normal (applies MEDGEN (St to non-numeric Ez's results) Medical, ) MCH 27.6 pg Normal (applies MEDGEN (St to non-numeric Ez's results) [facility], ) MCHC 33.1 Normal (applies MEDGEN (St g/dL to non-numeric Ez's results) [facility], ) RDW 13.5 % Normal (applies MEDGEN (St to non-numeric Ez's results) [facility], ) Platelets 282 Normal (applies MEDGEN (St [#/area] in x10E3/uL to non-numeric Ez's Blood by results) [facility], ) Microscopy high power field Neutrophils [#] 71 % Normal (applies MEDGEN ( St in Body fluid by to non-numeric Ez's Manual count results) [facility], ) Lymphs 20 % Normal (applies MEDGEN (St to non-numeric Ez's results) [facility], ) Monocytes 6 % Normal (applies MEDGEN (St [#/volume] in to non-numeric Ez's Cord blood results) [facility], ) Eos 2 % Normal (applies MEDGEN (St to non-numeric Ez's results) [facility], ) Basos 1 % Normal (applies MEDGEN (St to non-numeric Ez's results) [facility], ) Neutrophils 7.7 Above high normal MEDGEN (St (Absolute) x10E3/uL [facility], ) Lymphs 2.1 Normal (applies MEDGEN (St (Absolute) x10E3/uL to non-numeric Ez's results) [facility], ) Monocytes(Absolu 0.7 Normal (applies MEDGEN (St te) x10E3/uL to non-numeric Ez's results) Medical, ) Eos (Absolute) 0.2 Normal (applies MEDGEN (S t x10E3/uL to non-numeric Ez's results) Medical, ) Baso (Absolute) 0.1 Normal (applies MEDGEN ( St x10E3/uL to non-numeric Ez's results) [facility], ) Immature Grans 0.0 Normal (applies MEDGEN (S t (Abs) x10E3/uL to non-numeric Ez's results) Medical, ) Immature 0 % Normal (applies MEDGEN (St Granulocytes to non-numeric Ez's results) Medical, ) ID Date Data Source [id number] 05/04/2018 12:00:00 AM EST [facility] ([facility], ) Name Value Range Interpretation Code Description Data Sandie rce(s) Supporting Document(s ) ID Date Data Source [id number] 05/04/2018 12:00:00 AM EST [facility] ([facility], ) Name Value Range Interpretation Code Description Data Sandie rce(s) Supporting Document(s ) PDF Image . Normal (applies to MEDGEN (St non-numeric results) [facility], ) ID Date Data Source [id number] 05/04/2018 12:00:00 AM EST MEDGEN ([facility], ) Name Value Range Interpretation Description Data Sup porting Code Source(s) Document(s ) Vitamin D, 22.4 Below low normal MEDGEN (St 25-Hydroxy ng/mL [facility], ) ID Date Data Source [id number] 05/04/2018 12:00:00 AM EST MEDGEN ([facility], ) Name Value Range Interpretation Code Description Data Sandie rce(s) Supporting Document(s ) TSH 2.630 Normal (applies to MEDGEN (St uIU/mL non-numeric results) [facility]) ID Date Data Source [id number] 05/04/2018 12:00:00 AM EST MEDGEN ([facility], ) Name Value Range Interpretation Description Data Sup porting Code Source(s) Document(s ) Hemoglobin 12.4 % Above high normal MEDGEN (St A1c/Hemoglobin Ez's .total in [facility], ) Blood ID Date Data Source [id number] 05/04/2018 12:00:00 AM EST MEDGEN ([facility], ) Name Value Range Interpretation Description Data Sup porting Code Source(s) Document(s ) Vitamin B12 798 pg/mL Normal (applies to MEDGEN (S t non-numeric Ez's results) Medical, ) Folate 9.0 ng/mL Normal (applies to MEDGEN (St (Folic non-numeric Ez's Acid), Serum results) Medical, ) ID Date Data Source [id number] 05/04/2018 12:00:00 AM EST MEDGEN (St [facility], ) Name Value Range Interpretation Description Data Sup porting Code Source(s) Document(s ) Cholesterol 210 Above high normal MEDGEN (St [Mass/volume] in mg/dL Ez's Serum or Plasma Medical, ) Triglyceride 204 Above high normal MEDGEN (S t [Mass/volume] in mg/dL [facility] Serum or Plasma [facility], ) HDL Cholesterol 44 mg/dL Normal (applies MEDGEN ( St to non-numeric Ez's results) Medical, PC) VLDL Cholesterol 41 mg/dL Above high normal MEDGE N ([facility], ) LDL Cholesterol 125 Above high normal MEDGEN (St Calc mg/dL [facility], ) ID Date Data Source [id number] 05/04/2018 12:00:00 AM EST MEDGEN (St [facility], ) Name Value Range Interpretation Description Data Sup porting Code Source(s) Document(s ) WBC >30 Abnormal (applies MEDGEN (St to non-numeric Ez's results) Medical, PC) RBC 0-2 Normal (applies to MEDGEN (St non-numeric Ez's results) Medical, PC) Epithelial 0-10 Normal (applies to MEDGEN (St Cells (non non-numeric Ez's renal) results) Medical, ) Mucus Threads Present Normal (applies to MEDGEN (St non-numeric Ez's results) Medical, PC) Bacteria Many Abnormal (applies MEDGEN (St [Presence] in to non-numeric Ez's Prostatic results) Medical, ) fluid by Light microscopy ID Date Data Source [id number] 05/04/2018 12:00:00 AM EST MEDGEN (St [facility], ) Name Value Range Interpretation Description Data Sup porting Code Source(s) Document(s ) Specific gravity 1.020 Normal (applies MEDGEN (St of Pericardial to non-numeric Ez's fluid by results) Medical, Refractometry ) Urine-Color Yellow Normal (applies MEDGEN (St to non-numeric Ez's results) Medical, PC) pH of Lower 5.0 Normal (applies MEDGEN (St respiratory to non-numeric Ez's specimen results) Medical, PC) Appearance of Cloudy Abnormal MEDGEN (St Abdomen (applies to Ez's non-numeric Medical, results) PC) WBC Esterase Abnormal MEDGEN (St (applies to Ez's non-numeric Medical, results) PC) Protein Trace Normal (applies MEDGEN (St [Mass/volume] in to non-numeric Ez's Lower results) Medical, respiratory PC) specimen Glucose Abnormal MEDGEN (St [Mass/volume] in (applies to Ez's Urine collected non-numeric Medical, for unspecified results) PC) duration Ketones Negative Normal (applies MEDGEN (St [Presence] in to non-numeric Ez's Blood by Tablet results) Medical, ) Occult Blood Trace Abnormal MEDGEN (St (applies to Ez's non-numeric Medical, results) PC) Bilirubin Negative Normal (applies MEDGEN (St [Presence] in to non-numeric Ez's Peritoneal fluid results) Medical, ) Urobilinogen,Dominique 0.2 EU/dL Normal (applies MEDGEN (St i-Qn to non-numeric Ez's results) Medical, ) Nitrite, Urine Negative Normal (applies MEDGEN (S t to non-numeric Ez's results) Medical, ) Microscopic See below: Normal (applies MEDGEN (St Examination to non-numeric Ez's results) Medical, ) ID Date Data Source [id number] 05/04/2018 12:00:00 AM EST MEDGEN ([facility], ) Name Value Range Interpretation Description Data Sup porting Code Source(s) Document(s ) Glucose 361 Above high MEDGEN (St [Mass/volume] in mg/dL normal Ez's Urine collected for Medical, unspecified PC) duration Urea nitrogen 33 mg/dL Above high MEDGEN (St [Mass/volume] in normal Ez's Serum or Plasma Medical, ) Creatinine 1.01 Above high MEDGEN (St [Interpretation] in mg/dL normal Ez's Urine Medical, ) eGFR If NonAfricn 61 Normal (applies MEDGEN (St Am mL/min/1 to non-numeric Ez's .73 results) Medical, ) eGFR If Africn Am 70 Normal (applies MEDGEN (St mL/min/1 to non-numeric Ez's .73 results) Medical, ) BUN/Creatinine 33 Above high MEDGEN (St Ratio normal [facility], ) Sodium 138 Normal (applies MEDGEN (St [Moles/volume] in mmol/L to non-numeric Ez's Serum or Plasma results) Medical, ) Potassium 5.1 Normal (applies MEDGEN (St [Mass/volume] in mmol/L to non-numeric Ez's Blood results) Medical, ) Chloride 99 Normal (applies MEDGEN (St [Moles/volume] in mmol/L to non-numeric Ez's Serum or Plasma results) Medical, ) Carbon dioxide, 23 Normal (applies MEDGEN ( St total mmol/L to non-numeric Ez's [Moles/volume] in results) Medical, Serum or Plasma PC) Calcium 10.9 Above high MEDGEN (St [Moles/volume] in mg/dL normal Ez's Urine collected for Medical, unspecified PC) duration Protein 6.8 g/dL Normal (applies MEDGEN (St [Mass/volume] in to non-numeric Ez's Serum or Plasma results) Medical, ) Microalbumin 4.1 g/dL Normal (applies MEDGEN (St [Mass/time] in to non-numeric Ez's Urine collected for results) Medical, unspecified PC) duration Globulin, Total 2.7 g/dL Normal (applies MEDGEN ( St to non-numeric Ez's results) Medical, ) Bilirubin.total <0.2 Normal (applies MEDGEN ( St [Mass/volume] in to non-numeric Ez's Serum or Plasma results) Medical, ) A/G Ratio 1.5 Normal (applies MEDGEN (St to non-numeric Ez's results) Medical, ) Alkaline 70 IU/L Normal (applies MEDGEN (St phosphatase to non-numeric Ze's [Enzymatic results) Medical, activity/volume] in PC) Serum, Plasma or Blood Aspartate 14 IU/L Normal (applies MEDGEN (St aminotransferase to non-numeric Ez's [Enzymatic results) Medical, activity/volume] in PC) Serum or Plasma Alanine 17 IU/L Normal (applies MEDGEN (St aminotransferase to non-numeric Ez's [Enzymatic results) Medical, activity/volume] in PC) Serum or Plasma ID Date Data Source [id number] 05/04/2018 12:00:00 AM EST [facility] ([facility], ) Name Value Range Interpretation Description Data Sup porting Code Source(s) Document(s ) Leukocytes 10.7 Normal (applies MEDGEN (St [#/volume] in x10E3/uL to non-numeric Ez's Blood by results) [facility], ) Automated count Erythrocytes 4.28 Normal (applies MEDGEN (St [#/volume] in x10E6/uL to non-numeric Ez's Blood by results) [facility], ) Automated count Hematocrit 35.6 % Normal (applies MEDGEN (St [Volume to non-numeric Ez's Fraction] of results) [facility], ) Blood by Automated count Hemoglobin 11.8 Normal (applies MEDGEN (St [Mass/volume] in g/dL to non-numeric Ez's Blood results) [facility], ) MCV 83 fL Normal (applies MEDGEN (St to non-numeric Ez's results) [facility], ) MCH 27.6 pg Normal (applies MEDGEN (St to non-numeric Ez's results) [facility], ) MCHC 33.1 Normal (applies MEDGEN (St g/dL to non-numeric Ez's results) [facility], ) RDW 13.5 % Normal (applies MEDGEN (St to non-numeric Ez's results) [facility], ) Platelets 282 Normal (applies MEDGEN (St [#/area] in x10E3/uL to non-numeric Ez's Blood by results) [facility], ) Microscopy high power field Neutrophils [#] 71 % Normal (applies MEDGEN ( St in Body fluid by to non-numeric Ez's Manual count results) [facility], ) Lymphs 20 % Normal (applies MEDGEN (St to non-numeric Ez's results) [facility], ) Monocytes 6 % Normal (applies MEDGEN (St [#/volume] in to non-numeric Ez's Cord blood results) [facility], ) Eos 2 % Normal (applies MEDGEN (St to non-numeric Ez's results) [facility], ) Basos 1 % Normal (applies MEDGEN (St to non-numeric Ez's results) [facility], ) Neutrophils 7.7 Above high normal MEDGEN (St (Absolute) x10E3/uL Ez's [facility], ) Lymphs 2.1 Normal (applies MEDGEN (St (Absolute) x10E3/uL to non-numeric Ez's results) [facility], ) Monocytes(Absolu 0.7 Normal (applies MEDGEN (St te) x10E3/uL to non-numeric Ez's results) Medical, ) Eos (Absolute) 0.2 Normal (applies MEDGEN (S t x10E3/uL to non-numeric Ez's results) Medical, ) Baso (Absolute) 0.1 Normal (applies MEDGEN ( St x10E3/uL to non-numeric Ez's results) Medical, ) Immature 0 % Normal (applies MEDGEN (St Granulocytes to non-numeric Ez's results) Medical, ) Immature Grans 0.0 Normal (applies MEDGEN (S t (Abs) x10E3/uL to non-numeric Ez's results) Medical, ) ID Date Data Source [id number] 05/04/2018 12:00:00 AM EST [facility] ([facility], ) Name Value Range Interpretation Code Description Data Sandie rce(s) Supporting Document(s ) ID Date Data Source [id number] 05/04/2018 12:00:00 AM EST [facility] ([facility] Name Value Range Interpretation Code Description Data Sandie rce(s) Supporting Document(s ) PDF Image . Normal (applies to MEDGEN (St non-numeric results) [facility]) PDF Image . Normal (applies to MEDGEN (St non-numeric results) [facility]) PDF Image . Normal (applies to MEDGEN (St non-numeric results) [facility]) PDF Image . Normal (applies to MEDGEN (St non-numeric results) [facility]) PDF Image . Normal (applies to MEDGEN (St non-numeric results) [facility]) PDF Image . Normal (applies to MEDGEN (St non-numeric results) [facility]) ID Date Data Source [id number] 05/04/2018 12:00:00 AM EST [facility] ([facility]) Name Value Range Interpretation Description Data Sup porting Code Source(s) Document(s ) Vitamin D, 22.4 Below low normal MEDGEN (St 25-Hydroxy ng/mL [facility], ) Vitamin D, 17.3 Below low normal MEDGEN (St 25-Hydroxy ng/mL [facility], ) Vitamin D, 29.6 Below low normal MEDGEN (St 25-Hydroxy ng/mL [facility], ) ID Date Data Source [id number] 05/04/2018 12:00:00 AM EST [facility] ([facility]) Name Value Range Interpretation Code Description Data Sandie rce(s) Supporting Document(s ) TSH 2.630 Normal (applies to MEDGEN (St uIU/mL non-numeric results) [facility], ) ID Date Data Source [id number] 05/04/2018 12:00:00 AM EST [facility] ([facility]) Name Value Range Interpretation Description Data Sup porting Code Source(s) Document(s ) Hemoglobin 8.5 % Above high normal MEDGEN (St A1c/Hemoglobin Ez's .total in Medical, PC) Blood Hemoglobin 12.4 % Above high normal MEDGEN (St A1c/Hemoglobin Ez's .total in Medical, ) Blood Hemoglobin 8.6 % Above high normal MEDGEN (St A1c/Hemoglobin Ez's .total in Medical, ) Blood Hemoglobin 12.6 % Above high normal MEDGEN (St A1c/Hemoglobin Ez's .total in Medical, ) Blood Hemoglobin 7.4 % Above high normal MEDGEN (St A1c/Hemoglobin Ez's .total in Medical, ) Blood Hemoglobin 15.0 % Above high normal MEDGEN (St A1c/Hemoglobin Ez's .total in Medical, ) Blood ID Date Data Source [id number] 05/04/2018 12:00:00 AM EST [facility] ([facility], ) Name Value Range Interpretation Description Data Sup porting Code Source(s) Document(s ) Folate 9.0 ng/mL Normal (applies to MEDGEN (St (Folic non-numeric Ez's Acid), Serum results) Medical, ) Vitamin B12 798 pg/mL Normal (applies to MEDGEN (S t non-numeric Ez's results) Medical, ) Vitamin B12 883 pg/mL Normal (applies to MEDGEN (S t non-numeric Ez's results) Medical, ) Folate 13.3 Normal (applies to MEDGEN (St (Folic ng/mL non-numeric Ez's Acid), Serum results) Medical, ) Vitamin B12 1035 Normal (applies to MEDGEN (S t pg/mL non-numeric Ez's results) Medical, ) Folate 6.6 ng/mL Normal (applies to MEDGEN (St (Folic non-numeric Ez's Acid), Serum results) [facility], ) ID Date Data Source [id number] 05/04/2018 12:00:00 AM EST MEDGEN ([facility], ) Name Value Range Interpretation Description Data Sup porting Code Source(s) Document(s ) Cholesterol 221 Above high normal MEDGEN (St [Mass/volume] in mg/dL Ez's Serum or Plasma [facility], ) Triglyceride 93 mg/dL Normal (applies MEDGEN (St [Mass/volume] in to non-numeric Ez's Serum or Plasma results) [facility], ) HDL Cholesterol 52 mg/dL Normal (applies MEDGEN ( St to non-numeric Ez's results) [facility], ) VLDL Cholesterol 19 mg/dL Normal (applies MEDGEN (St [place] to non-numeric Ez's results) [facility], ) Cholesterol 210 Above high normal MEDGEN (St [Mass/volume] in mg/dL Ez's Serum or Plasma [facility], ) LDL Cholesterol 150 Above high normal MEDGEN (St Calc mg/dL [facility], ) Triglyceride 204 Above high normal MEDGEN (S t [Mass/volume] in mg/dL Ez's Serum or Plasma [facility], ) HDL Cholesterol 44 mg/dL Normal (applies MEDGEN ( St to non-numeric Ez's results) [facility], ) VLDL Cholesterol 41 mg/dL Above high normal MEDGE N (St [place]ef[place] Ez's [facility], ) LDL Cholesterol 125 Above high normal MEDGEN (St Calc mg/dL [facility], ) Cholesterol 207 Above high normal MEDGEN (St [Mass/volume] in mg/dL Ez's Serum or Plasma [facility], ) Triglyceride 136 Normal (applies MEDGEN (St [Mass/volume] in mg/dL to non-numeric Ez's Serum or Plasma results) [facility], ) HDL Cholesterol 49 mg/dL Normal (applies MEDGEN ( St to non-numeric Ez's results) [facility], ) VLDL Cholesterol 27 mg/dL Normal (applies MEDGEN (St [place] to non-numeric Ez's results) [facility], ) LDL Cholesterol 131 Above high normal MEDGEN (St Calc mg/dL [facility], ) Triglyceride 197 Above high normal MEDGEN (S t [Mass/volume] in mg/dL Ez's Serum or Plasma [facility], ) Cholesterol 276 Above high normal MEDGEN (St [Mass/volume] in mg/dL Ez's Serum or Plasma Medical, ) HDL Cholesterol 44 mg/dL Normal (applies MEDGEN ( St to non-numeric Ez's results) Medical, ) VLDL Cholesterol 39 mg/dL Normal (applies MEDGEN (St [place] to non-numeric Ez's results) Medical, ) Cholesterol 176 Normal (applies MEDGEN (St [Mass/volume] in mg/dL to non-numeric Ez's Serum or Plasma results) Medical, ) LDL Cholesterol 193 Above high normal MEDGEN (St Calc mg/dL [facility], ) Triglyceride 160 Above high normal MEDGEN (S t [Mass/volume] in mg/dL Ez's Serum or Plasma [facility], ) HDL Cholesterol 55 mg/dL Normal (applies MEDGEN ( St to non-numeric Ez's results) Medical, ) VLDL Cholesterol 32 mg/dL Normal (applies MEDGEN (St [place] to non-numeric Ez's results) Medical, ) LDL Cholesterol 89 mg/dL Normal (applies MEDGEN ( St Calc to non-numeric Ez's results) [facility], ) ID Date Data Source [id number] 05/04/2018 12:00:00 AM EST MEDGEN (St [facility], ) Name Value Range Interpretation Description Data Sup porting Code Source(s) Document(s ) WBC >30 Abnormal (applies MEDGEN (St to non-numeric Ez's results) Medical, ) RBC 0-2 Normal (applies to MEDGEN (St non-numeric Ez's results) Medical, ) Mucus Threads Present Normal (applies to MEDGEN (St non-numeric Ez's results) Medical, ) Epithelial 0-10 Normal (applies to MEDGEN (St Cells (non non-numeric Ez's renal) results) Medical, ) Bacteria Many Abnormal (applies MEDGEN (St [Presence] in to non-numeric Ez's Prostatic results) Medical, ) fluid by Light microscopy WBC 6-10 Abnormal (applies MEDGEN (St to non-numeric Ez's results) Medical, ) RBC 0-2 Normal (applies to MEDGEN (St non-numeric Ez's results) Medical, ) Epithelial 0-10 Normal (applies to MEDGEN (St Cells (non non-numeric Ez's renal) results) Medical, PC) Mucus Threads Present Normal (applies to MEDGEN (St non-numeric Ez's results) Medical, PC) Bacteria Few Normal (applies to MEDGEN (St [Presence] in non-numeric Ez's Prostatic results) Medical, PC) fluid by Light microscopy ID Date Data Source [id number] 05/04/2018 12:00:00 AM EST [facility]GEN ([facility]) Name Value Range Interpretation Description Data Sup porting Code Source(s) Document(s ) Specific gravity 1.020 Normal (applies MEDGEN (St of Pericardial to non-numeric Ez's fluid by results) Medical, Refractometry PC) pH of Lower 5.0 Normal (applies MEDGEN (St respiratory to non-numeric Ez's specimen results) Medical, PC) Urine-Color Yellow Normal (applies MEDGEN (St to non-numeric Ez's results) Medical, PC) Appearance of Cloudy Abnormal MEDGEN (St Abdomen (applies to Ez's non-numeric Medical, results) PC) WBC Esterase Abnormal MEDGEN (St (applies to Ez's non-numeric Medical, results) PC) Protein Trace Normal (applies MEDGEN (St [Mass/volume] in to non-numeric Ez's Lower results) Medical, respiratory PC) specimen Glucose Abnormal MEDGEN (St [Mass/volume] in (applies to Ez's Urine collected non-numeric Medical, for unspecified results) PC) duration Ketones Negative Normal (applies MEDGEN (St [Presence] in to non-numeric Ez's Blood by Tablet results) Medical, PC) Occult Blood Trace Abnormal MEDGEN (St (applies to Ez's non-numeric Medical, results) PC) Urobilinogen,Dominique 0.2 EU/dL Normal (applies MEDGEN (St i-Qn to non-numeric Ez's results) Medical, PC) Bilirubin Negative Normal (applies MEDGEN (St [Presence] in to non-numeric Ez's Peritoneal fluid results) Medical, PC) Microscopic See below: Normal (applies MEDGEN (St Examination to non-numeric Ez's results) Medical, PC) Nitrite, Urine Negative Normal (applies MEDGEN (S t to non-numeric Ez's results) Medical, PC) Specific gravity 1.023 Normal (applies MEDGEN (St of Pericardial to non-numeric Ez's fluid by results) Medical, Refractometry PC) pH of Lower 5.5 Normal (applies MEDGEN (St respiratory to non-numeric Ez's specimen results) Medical, ) Urine-Color Yellow Normal (applies MEDGEN (St to non-numeric Ez's results) Medical, ) Appearance of Cloudy Abnormal MEDGEN (St Abdomen (applies to Ez's non-numeric Medical, results) PC) WBC Esterase Trace Abnormal MEDGEN (St (applies to Ez's non-numeric Medical, results) PC) Glucose Abnormal MEDGEN (St [Mass/volume] in (applies to Ez's Urine collected non-numeric Medical, for unspecified results) ) duration Protein Negative Normal (applies MEDGEN (St [Mass/volume] in to non-numeric Ez's Lower results) Medical, respiratory PC) specimen Occult Blood Negative Normal (applies MEDGEN (St to non-numeric Ez's results) Medical, ) Ketones Negative Normal (applies MEDGEN (St [Presence] in to non-numeric Ez's Blood by Tablet results) Medical, ) Bilirubin Negative Normal (applies MEDGEN (St [Presence] in to non-numeric Ez's Peritoneal fluid results) Medical, ) Urobilinogen,Dominique 0.2 EU/dL Normal (applies MEDGEN (St i-Qn to non-numeric Ez's results) Medical, ) Nitrite, Urine Negative Normal (applies MEDGEN (S t to non-numeric Ez's results) Medical, ) Microscopic See below: Normal (applies MEDGEN (St Examination to non-numeric Ez's results) Medical, ) ID Date Data Source [id number] 05/04/2018 12:00:00 AM EST [facility] ([facility], ) Name Value Range Interpretation Description Data Sup porting Code Source(s) Document(s ) Glucose, Serum 116 Above high MEDGEN (St mg/dL normal [facility], ) Creatinine, Serum 0.85 Normal (applies MEDGEN (St mg/dL to non-numeric Ez's results) Medical, ) Urea nitrogen 16 mg/dL Normal (applies MEDGEN (St [Mass/volume] in to non-numeric Ez's Serum or Plasma results) Medical, ) eGFR If NonAfricn 76 Normal (applies MEDGEN (St Am mL/min/1 to non-numeric Ez's .73 results) Medical, ) eGFR If Africn Am 87 Normal (applies MEDGEN (St mL/min/1 to non-numeric Ez's .73 results) Medical, ) BUN/Creatinine 19 Normal (applies MEDGEN (S t Ratio to non-numeric Ez's results) Medical, ) Sodium 141 Normal (applies MEDGEN (St [Moles/volume] in mmol/L to non-numeric Ez's Serum or Plasma results) Medical, ) Potassium, Serum 4.3 Normal (applies MEDGEN (St mmol/L to non-numeric Ez's results) Medical, ) Chloride 102 Normal (applies MEDGEN (St [Moles/volume] in mmol/L to non-numeric Ez's Serum or Plasma results) Medical, ) Carbon dioxide, 25 Normal (applies MEDGEN ( St total mmol/L to non-numeric Ez's [Moles/volume] in results) Medical, Serum or Plasma PC) Calcium, Serum 10.0 Normal (applies MEDGEN (S t mg/dL to non-numeric Ez's results) Medical, ) Protein 6.8 g/dL Normal (applies MEDGEN (St [Mass/volume] in to non-numeric Ez's Serum or Plasma results) Medical, ) Albumin, Serum 4.1 g/dL Normal (applies MEDGEN (S t to non-numeric Ez's results) Medical, ) Globulin, Total 2.7 g/dL Normal (applies MEDGEN ( St to non-numeric Ez's results) Medical, ) Bilirubin.total 0.4 Normal (applies MEDGEN ( St [Mass/volume] in mg/dL to non-numeric Ez's Serum or Plasma results) Medical, ) A/G Ratio 1.5 Normal (applies MEDGEN (St to non-numeric Ez's results) Medical, ) Aspartate 17 IU/L Normal (applies MEDGEN (St aminotransferase to non-numeric Ez's [Enzymatic results) Medical, activity/volume] in ) Serum or Plasma Alkaline 70 IU/L Normal (applies MEDGEN (St Phosphatase, S to non-numeric Ez's results) Medical, ) Alanine 14 IU/L Normal (applies MEDGEN (St aminotransferase to non-numeric Ez's [Enzymatic results) Medical, activity/volume] in PC) Serum or Plasma Glucose 361 Above high MEDGEN (St [Mass/volume] in mg/dL normal Ez's Urine collected for Medical, unspecified PC) duration Urea nitrogen 33 mg/dL Above high MEDGEN (St [Mass/volume] in normal Ez's Serum or Plasma Medical, PC) Creatinine 1.01 Above high MEDGEN (St [Interpretation] in mg/dL normal Ez's Urine Medical, PC) eGFR If NonAfricn 61 Normal (applies MEDGEN (St Am mL/min/1 to non-numeric Ez's .73 results) Medical, PC) BUN/Creatinine 33 Above high MEDGEN (St Ratio normal Ez's Medical, PC) eGFR If Africn Am 70 Normal (applies MEDGEN (St mL/min/1 to non-numeric Ze's .73 results) Medical, PC) Potassium 5.1 Normal (applies MEDGEN (St [Mass/volume] in mmol/L to non-numeric Ez's Blood results) Medical, PC) Sodium 138 Normal (applies MEDGEN (St [Moles/volume] in mmol/L to non-numeric Ez's Serum or Plasma results) Medical, PC) Carbon dioxide, 23 Normal (applies MEDGEN ( St total mmol/L to non-numeric Ez's [Moles/volume] in results) Medical, Serum or Plasma PC) Chloride 99 Normal (applies MEDGEN (St [Moles/volume] in mmol/L to non-numeric Ez's Serum or Plasma results) Medical, PC) Protein 6.8 g/dL Normal (applies MEDGEN (St [Mass/volume] in to non-numeric Ez's Serum or Plasma results) Medical, PC) Calcium 10.9 Above high MEDGEN (St [Moles/volume] in mg/dL normal Ez's Urine collected for Medical, unspecified PC) duration Globulin, Total 2.7 g/dL Normal (applies MEDGEN ( St to non-numeric Ez's results) Medical, PC) Microalbumin 4.1 g/dL Normal (applies MEDGEN (St [Mass/time] in to non-numeric Ez's Urine collected for results) Medical, unspecified PC) duration A/G Ratio 1.5 Normal (applies MEDGEN (St to non-numeric Ez's results) Medical, PC) Bilirubin.total <0.2 Normal (applies MEDGEN ( St [Mass/volume] in to non-numeric Ez's Serum or Plasma results) Medical, PC) Aspartate 14 IU/L Normal (applies MEDGEN (St aminotransferase to non-numeric Ez's [Enzymatic results) Medical, activity/volume] in PC) Serum or Plasma Alkaline 70 IU/L Normal (applies MEDGEN (St phosphatase to non-numeric Ez's [Enzymatic results) Medical, activity/volume] in PC) Serum, Plasma or Blood Alanine 17 IU/L Normal (applies MEDGEN (St aminotransferase to non-numeric Ez's [Enzymatic results) Medical, activity/volume] in PC) Serum or Plasma Glucose 292 Above high MEDGEN (St [Mass/volume] in mg/dL normal Ez's Urine collected for Medical, unspecified PC) duration Urea nitrogen 30 mg/dL Above high MEDGEN (St [Mass/volume] in normal Ez's Serum or Plasma Medical, ) eGFR If NonAfricn 46 Below low normal MEDGE N (St Am mL/min/1 Ez's .73 Medical, ) Creatinine 1.26 Above high MEDGEN (St [Interpretation] in mg/dL normal Ez's Urine Medical, ) BUN/Creatinine 24 Normal (applies MEDGEN (S t Ratio to non-numeric Ez's results) Medical, ) eGFR If Africn Am 54 Below low normal MEDGE N (St mL/min/1 Ez's .73 Medical, ) Potassium 4.7 Normal (applies MEDGEN (St [Mass/volume] in mmol/L to non-numeric Ez's Blood results) Medical, ) Sodium 142 Normal (applies MEDGEN (St [Moles/volume] in mmol/L to non-numeric Ez's Serum or Plasma results) Medical, ) Carbon dioxide, 22 Normal (applies MEDGEN ( St total mmol/L to non-numeric Ez's [Moles/volume] in results) Medical, Serum or Plasma PC) Chloride 104 Normal (applies MEDGEN (St [Moles/volume] in mmol/L to non-numeric Ez's Serum or Plasma results) Medical, ) Calcium 9.7 Normal (applies MEDGEN (St [Moles/volume] in mg/dL to non-numeric Ez's Urine collected for results) Medical, unspecified PC) duration Protein 6.4 g/dL Normal (applies MEDGEN (St [Mass/volume] in to non-numeric Ez's Serum or Plasma results) Medical, ) Microalbumin 3.9 g/dL Normal (applies MEDGEN (St [Mass/time] in to non-numeric Ez's Urine collected for results) Medical, unspecified PC) duration Globulin, Total 2.5 g/dL Normal (applies MEDGEN ( St to non-numeric Ez's results) Medical, ) A/G Ratio 1.6 Normal (applies MEDGEN (St to non-numeric Ez's results) Medical, ) Bilirubin.total <0.2 Normal (applies MEDGEN ( St [Mass/volume] in to non-numeric Ez's Serum or Plasma results) Medical, ) Alkaline 70 IU/L Normal (applies MEDGEN (St phosphatase to non-numeric Ez's [Enzymatic results) Medical, activity/volume] in ) Serum, Plasma or Blood Aspartate 17 IU/L Normal (applies MEDGEN (St aminotransferase to non-numeric Ez's [Enzymatic results) Medical, activity/volume] in ) Serum or Plasma Alanine 26 IU/L Normal (applies MEDGEN (St aminotransferase to non-numeric Ez's [Enzymatic results) Medical, activity/volume] in ) Serum or Plasma Glucose, Serum 473 Above high MEDGEN (St mg/dL normal [facility], ) Urea nitrogen 12 mg/dL Normal (applies MEDGEN (St [Mass/volume] in to non-numeric Ez's Serum or Plasma results) [facility], ) eGFR If NonAfricn 57 Below low normal MEDGE N (St Am mL/min/1 Ez's .73 [facility], ) Creatinine, Serum 1.07 Above high MEDGEN (St mg/dL normal [facility] [place], ) eGFR If Africn Am 66 Normal (applies MEDGEN (St mL/min/1 to non-numeric Ez's .73 results) [facility], ) BUN/Creatinine 11 Normal (applies MEDGEN (S t Ratio to non-numeric Ez's results) Medical, ) Potassium, Serum 4.3 Normal (applies MEDGEN (St mmol/L to non-numeric Ez's results) Medical, ) Sodium 138 Normal (applies MEDGEN (St [Moles/volume] in mmol/L to non-numeric Ez's Serum or Plasma results) Medical, ) Chloride 99 Normal (applies MEDGEN (St [Moles/volume] in mmol/L to non-numeric Ez's Serum or Plasma results) Medical, ) Calcium, Serum 9.3 Normal (applies MEDGEN (S t mg/dL to non-numeric Ez's results) [facility], ) Carbon dioxide, 21 Normal (applies MEDGEN ( St total mmol/L to non-numeric Ez's [Moles/volume] in results) Medical, Serum or Plasma PC) Protein 6.3 g/dL Normal (applies MEDGEN (St [Mass/volume] in to non-numeric Ez's Serum or Plasma results) [facility], ) Albumin, Serum 3.7 g/dL Normal (applies MEDGEN (S t to non-numeric Ez's results) [facility], ) Globulin, Total 2.6 g/dL Normal (applies MEDGEN ( St to non-numeric Ez's results) [facility], ) A/G Ratio 1.4 Normal (applies MEDGEN (St to non-numeric Ez's results) [facility], ) Bilirubin.total <0.2 Normal (applies MEDGEN ( St [Mass/volume] in to non-numeric Ez's Serum or Plasma results) [facility], ) Alkaline 123 IU/L Above high MEDGEN (St Phosphatase, S normal [facility]) Aspartate 13 IU/L Normal (applies MEDGEN (St aminotransferase to non-numeric Ez's [Enzymatic results) Medical, activity/volume] in ) Serum or Plasma Alanine 18 IU/L Normal (applies MEDGEN (St aminotransferase to non-numeric Ez's [Enzymatic results) Medical, activity/volume] in PC) Serum or Plasma Glucose 108 Above high MEDGEN (St [Mass/volume] in mg/dL normal Ez's Urine collected for Medical, unspecified PC) duration Creatinine 1.09 Above high MEDGEN (St [Interpretation] in mg/dL normal Ez's Urine [facility], ) Urea nitrogen 35 mg/dL Above high MEDGEN (St [Mass/volume] in normal Ez's Serum or Plasma [facility], ) eGFR If NonAfricn 56 Below low normal MEDGE N (St Am mL/min/1 [facility] [address] [place] [address], ) eGFR If Africn Am 64 Normal (applies MEDGEN (St mL/min/1 to non-numeric [facility]'s .73 results) [facility], ) BUN/Creatinine 32 Above high MEDGEN (St Ratio normal [facility], PC) Sodium 143 Normal (applies MEDGEN (St [Moles/volume] in mmol/L to non-numeric Ez's Serum or Plasma results) Medical, PC) Potassium 4.9 Normal (applies MEDGEN (St [Mass/volume] in mmol/L to non-numeric Ez's Blood results) Medical, PC) Chloride 109 Above high MEDGEN (St [Moles/volume] in mmol/L normal Ez's Serum or Plasma Medical, ) Carbon dioxide, 24 Normal (applies MEDGEN ( St total mmol/L to non-numeric Ez's [Moles/volume] in results) Medical, Serum or Plasma PC) Calcium 10.2 Normal (applies MEDGEN (St [Moles/volume] in mg/dL to non-numeric Ez's Urine collected for results) Medical, unspecified PC) duration Microalbumin 4.0 g/dL Normal (applies MEDGEN (St [Mass/time] in to non-numeric Ez's Urine collected for results) Medical, unspecified PC) duration Protein 7.0 g/dL Normal (applies MEDGEN (St [Mass/volume] in to non-numeric Ez's Serum or Plasma results) Medical, ) Globulin, Total 3.0 g/dL Normal (applies MEDGEN ( St to non-numeric Ez's results) Medical, PC) A/G Ratio 1.3 Normal (applies MEDGEN (St to non-numeric Ez's results) Medical, PC) Bilirubin.total <0.2 Normal (applies MEDGEN ( St [Mass/volume] in to non-numeric Ez's Serum or Plasma results) Medical, ) Alkaline 124 IU/L Above high MEDGEN (St phosphatase normal Ez's [Enzymatic Medical, activity/volume] in PC) Serum, Plasma or Blood Aspartate 33 IU/L Normal (applies MEDGEN (St aminotransferase to non-numeric Ez's [Enzymatic results) Medical, activity/volume] in PC) Serum or Plasma Alanine 64 IU/L Above high MEDGEN (St aminotransferase normal Ez's [Enzymatic Medical, activity/volume] in PC) Serum or Plasma ID Date Data Source [id number] 05/04/2018 12:00:00 AM EST [facility] ([facility], ) Name Value Range Interpretation Description Data Sup porting Code Source(s) Document(s ) Leukocytes 10.7 Normal (applies MEDGEN (St [#/volume] in x10E3/uL to non-numeric Ez's Blood by results) [facility], ) Automated count Erythrocytes 4.28 Normal (applies MEDGEN (St [#/volume] in x10E6/uL to non-numeric Ez's Blood by results) [facility], ) Automated count Hemoglobin 11.8 Normal (applies MEDGEN (St [Mass/volume] in g/dL to non-numeric Ez's Blood results) [facility], ) Hematocrit 35.6 % Normal (applies MEDGEN (St [Volume to non-numeric Ez's Fraction] of results) [facility], ) Blood by Automated count MCV 83 fL Normal (applies MEDGEN (St to non-numeric Ez's results) [facility], ) MCHC 33.1 Normal (applies MEDGEN (St g/dL to non-numeric Ez's results) [facility], ) MCH 27.6 pg Normal (applies MEDGEN (St to non-numeric Ez's results) [facility], ) Platelets 282 Normal (applies MEDGEN (St [#/area] in x10E3/uL to non-numeric Ez's Blood by results) [facility], ) Microscopy high power field RDW 13.5 % Normal (applies MEDGEN (St to non-numeric Ez's results) [facility], ) Neutrophils [#] 71 % Normal (applies MEDGEN ( St in Body fluid by to non-numeric Ez's Manual count results) [facility], ) Lymphs 20 % Normal (applies MEDGEN (St to non-numeric Ez's results) [facility], ) Monocytes 6 % Normal (applies MEDGEN (St [#/volume] in to non-numeric Ez's Cord blood results) [facility], ) Basos 1 % Normal (applies MEDGEN (St to non-numeric Ez's results) [facility], ) Eos 2 % Normal (applies MEDGEN (St to non-numeric Ez's results) [facility], ) Lymphs 2.1 Normal (applies MEDGEN (St (Absolute) x10E3/uL to non-numeric Ez's results) [facility], ) Neutrophils 7.7 Above high normal MEDGEN (St (Absolute) x10E3/uL Ez's [facility], ) Monocytes(Absolu 0.7 Normal (applies MEDGEN (St te) x10E3/uL to non-numeric Ez's results) [facility], ) Eos (Absolute) 0.2 Normal (applies MEDGEN (S t x10E3/uL to non-numeric Ez's results) Medical, ) Baso (Absolute) 0.1 Normal (applies MEDGEN ( St x10E3/uL to non-numeric Ez's results) Medical, ) Immature Grans 0.0 Normal (applies MEDGEN (S t (Abs) x10E3/uL to non-numeric Ez's results) [facility], ) Immature 0 % Normal (applies MEDGEN (St Granulocytes to non-numeric Ez's results) [facility], ) Erythrocytes 4.31 Normal (applies MEDGEN (St [#/volume] in x10E6/uL to non-numeric Ez's Blood by results) Medical, ) Automated count Leukocytes 9.5 Normal (applies MEDGEN (St [#/volume] in x10E3/uL to non-numeric Ez's Blood by results) [facility], ) Automated count Hemoglobin 12.2 Normal (applies MEDGEN (St [Mass/volume] in g/dL to non-numeric Ez's Blood results) [facility], ) Hematocrit 36.9 % Normal (applies MEDGEN (St [Volume to non-numeric Ez's Fraction] of results) [facility], ) Blood by Automated count MCV 86 fL Normal (applies MEDGEN (St to non-numeric Ez's results) [facility], ) MCH 28.3 pg Normal (applies MEDGEN (St to non-numeric Ez's results) [facility], ) MCHC 33.1 Normal (applies MEDGEN (St g/dL to non-numeric Ez's results) [facility], ) RDW 13.3 % Normal (applies MEDGEN (St to non-numeric Ez's results) [facility], ) Platelets 371 Normal (applies MEDGEN (St [#/area] in x10E3/uL to non-numeric Ez's Blood by results) [facility], ) Microscopy high power field Lymphs 21 % Normal (applies MEDGEN (St to non-numeric Ez's results) [facility], ) Neutrophils [#] 70 % Normal (applies MEDGEN ( St in Body fluid by to non-numeric Ez's Manual count results) [facility], ) Eos 1 % Normal (applies MEDGEN (St to non-numeric Ez's results) [facility], ) Monocytes 8 % Normal (applies MEDGEN (St [#/volume] in to non-numeric Ez's Cord blood results) Medical, ) Basos 0 % Normal (applies MEDGEN (St to non-numeric Ez's results) Medical, ) Neutrophils 6.7 Normal (applies MEDGEN (St (Absolute) x10E3/uL to non-numeric Ez's results) Medical, ) Monocytes(Absolu 0.7 Normal (applies MEDGEN (St te) x10E3/uL to non-numeric Ez's results) Medical, ) Lymphs 2.0 Normal (applies MEDGEN (St (Absolute) x10E3/uL to non-numeric Ez's results) Medical, ) Eos (Absolute) 0.1 Normal (applies MEDGEN (S t x10E3/uL to non-numeric Ez's results) Medical, ) Baso (Absolute) 0.0 Normal (applies MEDGEN ( St x10E3/uL to non-numeric Ez's results) Medical, ) Immature 0 % Normal (applies MEDGEN (St Granulocytes to non-numeric Ez's results) Medical, ) Immature Grans 0.0 Normal (applies MEDGEN (S t (Abs) x10E3/uL to non-numeric Ez's results) Medical, ) ID Date Data Source [id number] 04/08/2017 12:00:00 AM EST [facility] ([facility], ) Name Value Range Interpretation Code Description Data Sandie rce(s) Supporting Document(s ) ID Date Data Source [id number] 04/08/2017 12:00:00 AM EST [facility] ([facility], ) Name Value Range Interpretation Code Description Data Sandie rce(s) Supporting Document(s ) PDF Image . Normal (applies to MEDGEN (St non-numeric results) [facility], ) ID Date Data Source [id number] 04/08/2017 12:00:00 AM EST [facility] ([facility], ) Name Value Range Interpretation Description Data Sup porting Code Source(s) Document(s ) Hemoglobin 8.5 % Above high normal MEDGEN (St A1c/Hemoglobin. Ez's total in Blood Medical, ) ID Date Data Source [id number] 04/08/2017 12:00:00 AM EST [facility] ([facility], ) Name Value Range Interpretation Description Data Sup porting Code Source(s) Document(s ) Bilirubin.c 0.11 mg/dL Normal (applies to MEDGEN ( St onjugated non-numeric Ez's [Mass/volum results) [facility], ) e] in Serum or Plasma ID Date Data Source [id number] 04/08/2017 12:00:00 AM EST MEDGEN ([facility] [place] [place]) Name Value Range Interpretation Description Data Sup porting Code Source(s) Document(s ) Cholesterol 221 Above high normal MEDGEN (St [Mass/volume] in mg/dL Ez's Serum or Plasma [facility], ) Triglyceride 93 mg/dL Normal (applies MEDGEN (St [Mass/volume] in to non-numeric Ez's Serum or Plasma results) [facility]) HDL Cholesterol 52 mg/dL Normal (applies MEDGEN ( St to non-numeric Ez's results) [facility]) VLDL Cholesterol 19 mg/dL Normal (applies MEDGEN (St [place] to non-numeric Ez's results) [facility], ) LDL Cholesterol 150 Above high normal MEDGEN (St Calc mg/dL [facility]) ID Date Data Source [id number] 04/08/2017 12:00:00 AM EST MEDGEN ([facility] [place], [place]) Name Value Range Interpretation Description Data Sup porting Code Source(s) Document(s ) Glucose, Serum 116 Above high MEDGEN (St mg/dL normal [facility]) Urea nitrogen 16 mg/dL Normal (applies MEDGEN (St [Mass/volume] in to non-numeric Ez's Serum or Plasma results) [facility], ) Creatinine, Serum 0.85 Normal (applies MEDGEN (St mg/dL to non-numeric Ez's results) [facility], ) eGFR If NonAfricn 76 Normal (applies MEDGEN (St Am mL/min/1 to non-numeric Ez's .73 results) Medical, ) eGFR If Africn Am 87 Normal (applies MEDGEN (St mL/min/1 to non-numeric Ez's .73 results) [facility], ) BUN/Creatinine 19 Normal (applies MEDGEN (S t Ratio to non-numeric Ez's results) [facility], ) Potassium, Serum 4.3 Normal (applies MEDGEN (St mmol/L to non-numeric Ez's results) [facility], ) Sodium 141 Normal (applies MEDGEN (St [Moles/volume] in mmol/L to non-numeric Ez's Serum or Plasma results) Medical, ) Chloride 102 Normal (applies MEDGEN (St [Moles/volume] in mmol/L to non-numeric Ez's Serum or Plasma results) Medical, ) Carbon dioxide, 25 Normal (applies MEDGEN ( St total mmol/L to non-numeric Ez's [Moles/volume] in results) Medical, Serum or Plasma [facility]) Calcium, Serum 10.0 Normal (applies MEDGEN (S t mg/dL to non-numeric Ez's results) Medical, ) Protein 6.8 g/dL Normal (applies MEDGEN (St [Mass/volume] in to non-numeric Ez's Serum or Plasma results) Medical, ) Albumin, Serum 4.1 g/dL Normal (applies MEDGEN (S t to non-numeric Ez's results) Medical, ) Globulin, Total 2.7 g/dL Normal (applies MEDGEN ( St to non-numeric Ez's results) Medical, ) A/G Ratio 1.5 Normal (applies MEDGEN (St to non-numeric Ez's results) Medical, ) Bilirubin.total 0.4 Normal (applies MEDGEN ( St [Mass/volume] in mg/dL to non-numeric Ez's Serum or Plasma results) Medical, ) Aspartate 17 IU/L Normal (applies MEDGEN (St aminotransferase to non-numeric Ez's [Enzymatic results) Medical, activity/volume] in PC) Serum or Plasma Alkaline 70 IU/L Normal (applies MEDGEN (St Phosphatase, S to non-numeric Ez's results) Medical, ) Alanine 14 IU/L Normal (applies MEDGEN (St aminotransferase to non-numeric Ez's [Enzymatic results) Medical, activity/volume] in PC) Serum or Plasma ID Date Data Source [id number] 04/08/2017 12:00:00 AM EST [facility] ([facility], ) Name Value Range Interpretation Code Description Data Sandie rce(s) Supporting Document(s ) ID Date Data Source [id number] 04/08/2017 12:00:00 AM EST [facility] ([facility], ) Name Value Range Interpretation Code Description Data Sandie rce(s) Supporting Document(s ) PDF Image . Normal (applies to MEDGEN (St non-numeric results) [facility], ) ID Date Data Source [id number] 04/08/2017 12:00:00 AM EST MEDGEN ([facility] [place], ) Name Value Range Interpretation Description Data Sup porting Code Source(s) Document(s ) Hemoglobin 8.5 % Above high normal MEDGEN (St A1c/Hemoglobin. Ez's total in Blood [facility], ) ID Date Data Source [id number] 04/08/2017 12:00:00 AM EST MEDGEN ([facility] [place], ) Name Value Range Interpretation Description Data Sup porting Code Source(s) Document(s ) Bilirubin.c 0.11 mg/dL Normal (applies to MEDGEN ( St onjugated non-numeric Ez's [Mass/volum results) [facility]) e] in Serum or Plasma ID Date Data Source [id number] 04/08/2017 12:00:00 AM EST MEDGEN ([facility] [place], ) Name Value Range Interpretation Description Data Sup porting Code Source(s) Document(s ) Cholesterol 221 Above high normal MEDGEN (St [Mass/volume] in mg/dL [facility] Serum or Plasma [facility]) Triglyceride 93 mg/dL Normal (applies [facility]GEN (St [Mass/volume] in to non-numeric Ez's Serum or Plasma results) [facility]) HDL Cholesterol 52 mg/dL Normal (applies MEDGEN ( St to non-numeric Ez's results) [facility]) VLDL Cholesterol 19 mg/dL Normal (applies MEDGEN (St [place] to non-numeric Ez's results) [facility]) LDL Cholesterol 150 Above high normal MEDGEN (St Calc mg/dL [facility]) ID Date Data Source [id number] 04/08/2017 12:00:00 AM EST MEDGEN ([facility] [place], ) Name Value Range Interpretation Description Data Sup porting Code Source(s) Document(s ) Glucose, Serum 116 Above high MEDGEN (St mg/dL normal [facility]) Urea nitrogen 16 mg/dL Normal (applies MEDGEN (St [Mass/volume] in to non-numeric Ez's Serum or Plasma results) [facility]) Creatinine, Serum 0.85 Normal (applies MEDGEN (St mg/dL to non-numeric Ez's results) Medical, ) eGFR If NonAfricn 76 Normal (applies MEDGEN (St Am mL/min/1 to non-numeric Ez's .73 results) Medical, ) eGFR If Africn Am 87 Normal (applies MEDGEN (St mL/min/1 to non-numeric Ez's .73 results) Medical, ) BUN/Creatinine 19 Normal (applies MEDGEN (S t Ratio to non-numeric Ez's results) Medical, ) Sodium 141 Normal (applies MEDGEN (St [Moles/volume] in mmol/L to non-numeric Ez's Serum or Plasma results) Medical, ) Potassium, Serum 4.3 Normal (applies MEDGEN (St mmol/L to non-numeric Ez's results) Medical, ) Chloride 102 Normal (applies MEDGEN (St [Moles/volume] in mmol/L to non-numeric Ez's Serum or Plasma results) Medical, ) Calcium, Serum 10.0 Normal (applies MEDGEN (S t mg/dL to non-numeric Ez's results) Medical, ) Carbon dioxide, 25 Normal (applies MEDGEN ( St total mmol/L to non-numeric Ez's [Moles/volume] in results) Medical, Serum or Plasma [facility]) Albumin, Serum 4.1 g/dL Normal (applies MEDGEN (S t to non-numeric Ez's results) Medical, ) Protein 6.8 g/dL Normal (applies MEDGEN (St [Mass/volume] in to non-numeric Ez's Serum or Plasma results) Medical, ) Globulin, Total 2.7 g/dL Normal (applies MEDGEN ( St to non-numeric Ez's results) Medical, ) A/G Ratio 1.5 Normal (applies MEDGEN (St to non-numeric Ez's results) Medical, ) Bilirubin.total 0.4 Normal (applies MEDGEN ( St [Mass/volume] in mg/dL to non-numeric Ez's Serum or Plasma results) Medical, ) Alkaline 70 IU/L Normal (applies MEDGEN (St Phosphatase, S to non-numeric Ez's results) Medical, ) Aspartate 17 IU/L Normal (applies MEDGEN (St aminotransferase to non-numeric Ez's [Enzymatic results) Medical, activity/volume] in PC) Serum or Plasma Alanine 14 IU/L Normal (applies MEDGEN (St aminotransferase to non-numeric Ez's [Enzymatic results) Medical, activity/volume] in ) Serum or Plasma ID Date Data Source [id number] 04/08/2017 12:00:00 AM EST MEDGEN ([facility], ) Name Value Range Interpretation Code Description Data Sandie rce(s) Supporting Document(s ) ID Date Data Source [id number] 04/08/2017 12:00:00 AM EST MEDGEN ([facility] [place], ) Name Value Range Interpretation Code Description Data Sandie rce(s) Supporting Document(s ) PDF Image . Normal (applies to MEDGEN (St non-numeric results) [facility], ) ID Date Data Source [id number] 04/08/2017 12:00:00 AM EST MEDGEN ([facility] [place], ) Name Value Range Interpretation Description Data Sup porting Code Source(s) Document(s ) Hemoglobin 8.5 % Above high normal MEDGEN (St A1c/Hemoglobin. Ez's total in Blood [facility], ) ID Date Data Source [id number] 04/08/2017 12:00:00 AM EST MEDGEN ([facility], ) Name Value Range Interpretation Description Data Sup porting Code Source(s) Document(s ) Bilirubin.c 0.11 mg/dL Normal (applies to MEDGEN ( St onjugated non-numeric Ez's [Mass/volum results) [facility], ) e] in Serum or Plasma ID Date Data Source [id number] 04/08/2017 12:00:00 AM EST MEDGEN ([facility], ) Name Value Range Interpretation Description Data Sup porting Code Source(s) Document(s ) Cholesterol 221 Above high normal MEDGEN (St [Mass/volume] in mg/dL Ez[facility] Serum or Plasma [facility], ) Triglyceride 93 mg/dL Normal (applies MEDGEN (St [Mass/volume] in to non-numeric Ez's Serum or Plasma results) Medical, ) HDL Cholesterol 52 mg/dL Normal (applies MEDGEN ( St to non-numeric Ez's results) Medical, ) VLDL Cholesterol 19 mg/dL Normal (applies MEDGEN (St [place] to non-numeric Ez's results) Medical, ) LDL Cholesterol 150 Above high normal MEDGEN (St Calc mg/dL Ez's [facility], ) ID Date Data Source [id number] 04/08/2017 12:00:00 AM EST [facility] ([facility], ) Name Value Range Interpretation Description Data Sup porting Code Source(s) Document(s ) Glucose, Serum 116 Above high MEDGEN (St mg/dL normal [facility] [place], ) Urea nitrogen 16 mg/dL Normal (applies MEDGEN (St [Mass/volume] in to non-numeric Ez's Serum or Plasma results) Medical, ) eGFR If NonAfricn 76 Normal (applies MEDGEN (St Am mL/min/1 to non-numeric Ez's .73 results) Medical, ) Creatinine, Serum 0.85 Normal (applies MEDGEN (St mg/dL to non-numeric Ez's results) Medical, ) eGFR If Africn Am 87 Normal (applies MEDGEN (St mL/min/1 to non-numeric Ez's .73 results) Medical, ) BUN/Creatinine 19 Normal (applies MEDGEN (S t Ratio to non-numeric Ez's results) Medical, ) Sodium 141 Normal (applies MEDGEN (St [Moles/volume] in mmol/L to non-numeric Ez's Serum or Plasma results) Medical, ) Potassium, Serum 4.3 Normal (applies MEDGEN (St mmol/L to non-numeric Ez's results) Medical, ) Chloride 102 Normal (applies MEDGEN (St [Moles/volume] in mmol/L to non-numeric Ez's Serum or Plasma results) Medical, ) Carbon dioxide, 25 Normal (applies MEDGEN ( St total mmol/L to non-numeric Ez's [Moles/volume] in results) Medical, Serum or Plasma PC) Calcium, Serum 10.0 Normal (applies MEDGEN (S t mg/dL to non-numeric Ez's results) Medical, ) Protein 6.8 g/dL Normal (applies MEDGEN (St [Mass/volume] in to non-numeric Ez's Serum or Plasma results) Medical, ) Albumin, Serum 4.1 g/dL Normal (applies MEDGEN (S t to non-numeric Ze's results) Medical, ) A/G Ratio 1.5 Normal (applies MEDGEN (St to non-numeric Ez's results) Medical, ) Globulin, Total 2.7 g/dL Normal (applies MEDGEN ( St to non-numeric Ez's results) [facility], ) Alkaline 70 IU/L Normal (applies MEDGEN (St Phosphatase, S to non-numeric Ez's results) [facility], ) Bilirubin.total 0.4 Normal (applies MEDGEN ( St [Mass/volume] in mg/dL to non-numeric Ez's Serum or Plasma results) [facility], ) Aspartate 17 IU/L Normal (applies MEDGEN (St aminotransferase to non-numeric Ez's [Enzymatic results) Medical, activity/volume] in PC) Serum or Plasma Alanine 14 IU/L Normal (applies MEDGEN (St aminotransferase to non-numeric Ez's [Enzymatic results) Medical, activity/volume] in ) Serum or Plasma ID Date Data Source [id number] 04/08/2017 12:00:00 AM EST [facility] ([facility], ) Name Value Range Interpretation Code Description Data Sandie rce(s) Supporting Document(s ) ID Date Data Source [id number] 04/08/2017 12:00:00 AM EST [facility] ([facility], ) Name Value Range Interpretation Code Description Data Sandie rce(s) Supporting Document(s ) PDF Image . Normal (applies to MEDGEN (St non-numeric results) [facility]) ID Date Data Source [id number] 04/08/2017 12:00:00 AM EST [facility] ([facility], ) Name Value Range Interpretation Description Data Sup porting Code Source(s) Document(s ) Hemoglobin 8.5 % Above high normal MEDGEN (St A1c/Hemoglobin. Ez's total in Blood [facility], ) ID Date Data Source [id number] 04/08/2017 12:00:00 AM EST [facility] ([facility], ) Name Value Range Interpretation Description Data Sup porting Code Source(s) Document(s ) Bilirubin.c 0.11 mg/dL Normal (applies to MEDGEN ( St onjugated non-numeric Ez's [Mass/volum results) [facility], ) e] in Serum or Plasma ID Date Data Source [id number] 04/08/2017 12:00:00 AM EST [facility] ([facility], ) Name Value Range Interpretation Description Data Sup porting Code Source(s) Document(s ) Cholesterol 221 Above high normal MEDGEN (St [Mass/volume] in mg/dL [facility] Serum or Plasma Medical, ) Triglyceride 93 mg/dL Normal (applies MEDGEN (St [Mass/volume] in to non-numeric Ez's Serum or Plasma results) Medical, ) HDL Cholesterol 52 mg/dL Normal (applies MEDGEN ( St to non-numeric Ez's results) Medical, ) VLDL Cholesterol 19 mg/dL Normal (applies MEDGEN (St [place] to non-numeric Ez's results) Medical, ) LDL Cholesterol 150 Above high normal MEDGEN (St Calc mg/dL [facility], ) ID Date Data Source [id number] 04/08/2017 12:00:00 AM EST [facility], ) Name Value Range Interpretation Description Data Sup porting Code Source(s) Document(s ) Glucose, Serum 116 Above high MEDGEN (St mg/dL normal [facility], ) Urea nitrogen 16 mg/dL Normal (applies MEDGEN (St [Mass/volume] in to non-numeric Ez's Serum or Plasma results) Medical, ) Creatinine, Serum 0.85 Normal (applies MEDGEN (St mg/dL to non-numeric Ez's results) Medical, ) eGFR If NonAfricn 76 Normal (applies MEDGEN (St Am mL/min/1 to non-numeric Ez's .73 results) Medical, ) eGFR If Africn Am 87 Normal (applies MEDGEN (St mL/min/1 to non-numeric Ez's .73 results) Medical, ) BUN/Creatinine 19 Normal (applies MEDGEN (S t Ratio to non-numeric Ez's results) Medical, ) Sodium 141 Normal (applies MEDGEN (St [Moles/volume] in mmol/L to non-numeric Ez's Serum or Plasma results) Medical, ) Chloride 102 Normal (applies MEDGEN (St [Moles/volume] in mmol/L to non-numeric Ez's Serum or Plasma results) Medical, ) Potassium, Serum 4.3 Normal (applies MEDGEN (St mmol/L to non-numeric Ez's results) Medical, ) Carbon dioxide, 25 Normal (applies MEDGEN ( St total mmol/L to non-numeric Ez's [Moles/volume] in results) Medical, Serum or Plasma PC) Calcium, Serum 10.0 Normal (applies MEDGEN (S t mg/dL to non-numeric Ez's results) Medical, ) Protein 6.8 g/dL Normal (applies MEDGEN (St [Mass/volume] in to non-numeric Ez's Serum or Plasma results) Medical, ) Albumin, Serum 4.1 g/dL Normal (applies MEDGEN (S t to non-numeric Ez's results) Medical, ) Globulin, Total 2.7 g/dL Normal (applies MEDGEN ( St to non-numeric Ez's results) [facility], ) Bilirubin.total 0.4 Normal (applies MEDGEN ( St [Mass/volume] in mg/dL to non-numeric Ez's Serum or Plasma results) [facility], ) A/G Ratio 1.5 Normal (applies MEDGEN (St to non-numeric Ez's results) [facility], ) Alkaline 70 IU/L Normal (applies MEDGEN (St Phosphatase, S to non-numeric Ez's results) [facility], ) Aspartate 17 IU/L Normal (applies MEDGEN (St aminotransferase to non-numeric Ez's [Enzymatic results) Medical, activity/volume] in PC) Serum or Plasma Alanine 14 IU/L Normal (applies MEDGEN (St aminotransferase to non-numeric Ez's [Enzymatic results) Medical, activity/volume] in ) Serum or Plasma ID Date Data Source [id number] 04/08/2017 12:00:00 AM EST [facility] ([facility], ) Name Value Range Interpretation Code Description Data Sandie rce(s) Supporting Document(s ) ID Date Data Source [id number] 04/08/2017 12:00:00 AM EST [facility] ([facility], ) Name Value Range Interpretation Code Description Data Sandie rce(s) Supporting Document(s ) PDF Image . Normal (applies to MEDGEN (St non-numeric results) [facility], ) ID Date Data Source [id number] 04/08/2017 12:00:00 AM EST [facility] ([facility], ) Name Value Range Interpretation Description Data Sup porting Code Source(s) Document(s ) Hemoglobin 8.5 % Above high normal MEDGEN (St A1c/Hemoglobin. Ez's total in Blood [facility], ) ID Date Data Source [id number] 04/08/2017 12:00:00 AM EST MEDGEN ([facility], ) Name Value Range Interpretation Description Data Sup porting Code Source(s) Document(s ) Bilirubin.c 0.11 mg/dL Normal (applies to MEDGEN ( St onjugated non-numeric Ez's [Mass/volum results) Medical, ) e] in Serum or Plasma ID Date Data Source [id number] 04/08/2017 12:00:00 AM EST MEDGEN ([facility] [place] [place]) Name Value Range Interpretation Description Data Sup porting Code Source(s) Document(s ) Cholesterol 221 Above high normal MEDGEN (St [Mass/volume] in mg/dL Ez's Serum or Plasma [facility], ) Triglyceride 93 mg/dL Normal (applies MEDGEN (St [Mass/volume] in to non-numeric Ez's Serum or Plasma results) [facility], ) HDL Cholesterol 52 mg/dL Normal (applies MEDGEN ( St to non-numeric Ez's results) [facility], ) VLDL Cholesterol 19 mg/dL Normal (applies MEDGEN (St [place] to non-numeric Ez's results) [facility], ) LDL Cholesterol 150 Above high normal MEDGEN (St Calc mg/dL [facility]) ID Date Data Source [id number] 04/08/2017 12:00:00 AM EST MEDGEN ([facility] [place] [place]) Name Value Range Interpretation Description Data Sup porting Code Source(s) Document(s ) Glucose, Serum 116 Above high MEDGEN (St mg/dL normal [facility]) Urea nitrogen 16 mg/dL Normal (applies MEDGEN (St [Mass/volume] in to non-numeric Ez's Serum or Plasma results) Medical, ) Creatinine, Serum 0.85 Normal (applies MEDGEN (St mg/dL to non-numeric Ez's results) [facility], ) eGFR If NonAfricn 76 Normal (applies MEDGEN (St Am mL/min/1 to non-numeric Ez's .73 results) Medical, ) eGFR If Africn Am 87 Normal (applies MEDGEN (St mL/min/1 to non-numeric Ez's .73 results) Medical, ) BUN/Creatinine 19 Normal (applies MEDGEN (S t Ratio to non-numeric Ez's results) Medical, ) Sodium 141 Normal (applies MEDGEN (St [Moles/volume] in mmol/L to non-numeric Ez's Serum or Plasma results) Medical, ) Potassium, Serum 4.3 Normal (applies MEDGEN (St mmol/L to non-numeric Ez's results) [facility], ) Chloride 102 Normal (applies MEDGEN (St [Moles/volume] in mmol/L to non-numeric Ez's Serum or Plasma results) Medical, ) Carbon dioxide, 25 Normal (applies MEDGEN ( St total mmol/L to non-numeric Ez's [Moles/volume] in results) Medical, Serum or Plasma PC) Calcium, Serum 10.0 Normal (applies MEDGEN (S t mg/dL to non-numeric Ez's results) [facility], ) Protein 6.8 g/dL Normal (applies MEDGEN (St [Mass/volume] in to non-numeric Ez's Serum or Plasma results) [facility], ) Albumin, Serum 4.1 g/dL Normal (applies MEDGEN (S t to non-numeric Ez's results) [facility], ) Globulin, Total 2.7 g/dL Normal (applies MEDGEN ( St to non-numeric Ez's results) Medical, ) A/G Ratio 1.5 Normal (applies MEDGEN (St to non-numeric Ez's results) [facility], ) Bilirubin.total 0.4 Normal (applies MEDGEN ( St [Mass/volume] in mg/dL to non-numeric Ez's Serum or Plasma results) [facility], ) Alkaline 70 IU/L Normal (applies MEDGEN (St Phosphatase, S to non-numeric Ez's results) [facility], ) Aspartate 17 IU/L Normal (applies MEDGEN (St aminotransferase to non-numeric Ez's [Enzymatic results) Medical, activity/volume] in PC) Serum or Plasma Alanine 14 IU/L Normal (applies MEDGEN (St aminotransferase to non-numeric Ez's [Enzymatic results) Medical, activity/volume] in ) Serum or Plasma ID Date Data Source [id number] 04/08/2017 12:00:00 AM EST [facility] ([facility], ) Name Value Range Interpretation Code Description Data Sandie rce(s) Supporting Document(s ) ID Date Data Source [id number] 04/08/2017 12:00:00 AM EST [facility] ([facility], ) Name Value Range Interpretation Code Description Data Sandie rce(s) Supporting Document(s ) PDF Image . Normal (applies to MEDGEN (St non-numeric results) [facility], PC) PDF Image . Normal (applies to MEDGEN (St non-numeric results) [facility], PC) PDF Image . Normal (applies to MEDGEN (St non-numeric results) [facility] Me [facility], PC) PDF Image . Normal (applies to MEDGEN (St non-numeric results) [facility] Me [facility], PC) PDF Image . Normal (applies to MEDGEN (St non-numeric results) [facility]) PDF Image . Normal (applies to MEDGEN (St non-numeric results) [facility], [facility]) ID Date Data Source [id number] 04/08/2017 12:00:00 AM EST [facility] ([facility], ) Name Value Range Interpretation Description Data Sup porting Code Source(s) Document(s ) Hemoglobin 8.5 % Above high normal MEDGEN (St A1c/Hemoglobin Ez's .total in Medical, ) Blood Hemoglobin 8.6 % Above high normal MEDGEN (St A1c/Hemoglobin Ez's .total in Medical, ) Blood Hemoglobin 12.4 % Above high normal MEDGEN (St A1c/Hemoglobin Ez's .total in Medical, ) Blood Hemoglobin 12.6 % Above high normal MEDGEN (St A1c/Hemoglobin Ez's .total in Medical, ) Blood Hemoglobin 15.0 % Above high normal MEDGEN (St A1c/Hemoglobin Ez's .total in Medical, ) Blood Hemoglobin 7.4 % Above high normal MEDGEN (St A1c/Hemoglobin Ez's .total in Medical, ) Blood ID Date Data Source [id number] 04/08/2017 12:00:00 AM EST [facility] ([facility], ) Name Value Range Interpretation Description Data Sup porting Code Source(s) Document(s ) Bilirubin.c 0.11 mg/dL Normal (applies to MEDGEN ( St onjugated non-numeric Ez's [Mass/volum results) Medical, ) e] in Serum or Plasma Bilirubin.c 0.05 mg/dL Normal (applies to MEDGEN ( St onjugated non-numeric Ez's [Mass/volum results) Medical, ) e] in Serum or Plasma Bilirubin.c 0.08 mg/dL Normal (applies to MEDGEN ( St onjugated non-numeric Ez's [Mass/volum results) [facility]) e] in Serum or Plasma Bilirubin.c 0.05 mg/dL Normal (applies to MEDGEN ( St onjugated non-numeric Ez's [Mass/volum results) [facility], ) e] in Serum or Plasma ID Date Data Source [id number] 04/08/2017 12:00:00 AM EST [facility], ) Name Value Range Interpretation Description Data Sup porting Code Source(s) Document(s ) Triglyceride 93 mg/dL Normal (applies MEDGEN (St [Mass/volume] in to non-numeric Ez's Serum or Plasma results) [facility], ) Cholesterol 221 Above high normal MEDGEN (St [Mass/volume] in mg/dL Ez's Serum or Plasma [facility], ) HDL Cholesterol 52 mg/dL Normal (applies MEDGEN ( St to non-numeric Ez's results) [facility], ) VLDL Cholesterol 19 mg/dL Normal (applies MEDGEN (St [facility] to non-numeric Ez's results) [facility], ) LDL Cholesterol 150 Above high normal MEDGEN (St Calc mg/dL [facility]) Triglyceride 204 Above high normal MEDGEN (S t [Mass/volume] in mg/dL Ez's Serum or Plasma [facility]) Cholesterol 210 Above high normal MEDGEN (St [Mass/volume] in mg/dL Ez's Serum or Plasma [facility], ) VLDL Cholesterol 41 mg/dL Above high normal MEDGE N ([facility], ) HDL Cholesterol 44 mg/dL Normal (applies MEDGEN ( St to non-numeric Ez's results) [facility], ) Cholesterol 207 Above high normal MEDGEN (St [Mass/volume] in mg/dL Ez's Serum or Plasma [facility], ) LDL Cholesterol 125 Above high normal MEDGEN (St Calc mg/dL [facility]) Triglyceride 136 Normal (applies MEDGEN (St [Mass/volume] in mg/dL to non-numeric Ez's Serum or Plasma results) [facility], ) HDL Cholesterol 49 mg/dL Normal (applies MEDGEN ( St to non-numeric Ez's results) [facility]) VLDL Cholesterol 27 mg/dL Normal (applies MEDGEN (St [place] to non-numeric Ez's results) [facility], ) LDL Cholesterol 131 Above high normal MEDGEN (St Calc mg/dL Ez's [facility], ) Cholesterol 276 Above high normal MEDGEN (St [Mass/volume] in mg/dL Ez's Serum or Plasma [facility], ) Triglyceride 197 Above high normal MEDGEN (S t [Mass/volume] in mg/dL Ez's Serum or Plasma [facility], ) HDL Cholesterol 44 mg/dL Normal (applies MEDGEN ( St to non-numeric Ez's results) [facility], ) LDL Cholesterol 193 Above high normal MEDGEN (St Calc mg/dL [facility], ) VLDL Cholesterol 39 mg/dL Normal (applies MEDGEN (St [place] to non-numeric Ez's results) [facility]) Triglyceride 160 Above high normal MEDGEN (S t [Mass/volume] in mg/dL Ez's Serum or Plasma [facility], ) Cholesterol 176 Normal (applies MEDGEN (St [Mass/volume] in mg/dL to non-numeric Ez's Serum or Plasma results) [facility], ) VLDL Cholesterol 32 mg/dL Normal (applies MEDGEN (St [place] to non-numeric Ez's results) [facility], ) HDL Cholesterol 55 mg/dL Normal (applies MEDGEN ( St to non-numeric Ez's results) [facility], ) LDL Cholesterol 89 mg/dL Normal (applies MEDGEN ( St Calc to non-numeric Ez's results) [facility]) ID Date Data Source [id number] 04/08/2017 12:00:00 AM EST [facility], ) Name Value Range Interpretation Description Data Sup porting Code Source(s) Document(s ) Glucose, Serum 116 Above high MEDGEN (St mg/dL normal [facility], ) Urea nitrogen 16 mg/dL Normal (applies MEDGEN (St [Mass/volume] in to non-numeric Ez's Serum or Plasma results) [facility], ) eGFR If NonAfricn 76 Normal (applies MEDGEN (St Am mL/min/1 to non-numeric Ez's .73 results) [facility], ) Creatinine, Serum 0.85 Normal (applies MEDGEN (St mg/dL to non-numeric Ez's results) [facility], ) eGFR If Africn Am 87 Normal (applies MEDGEN (St mL/min/1 to non-numeric Ez's .73 results) Medical, ) BUN/Creatinine 19 Normal (applies MEDGEN (S t Ratio to non-numeric Ez's results) Medical, ) Sodium 141 Normal (applies MEDGEN (St [Moles/volume] in mmol/L to non-numeric Ez's Serum or Plasma results) Medical, ) Potassium, Serum 4.3 Normal (applies MEDGEN (St mmol/L to non-numeric Ez's results) Medical, ) Chloride 102 Normal (applies MEDGEN (St [Moles/volume] in mmol/L to non-numeric Ez's Serum or Plasma results) Medical, ) Carbon dioxide, 25 Normal (applies MEDGEN ( St total mmol/L to non-numeric Ez's [Moles/volume] in results) Medical, Serum or Plasma PC) Calcium, Serum 10.0 Normal (applies MEDGEN (S t mg/dL to non-numeric Ez's results) Medical, ) Protein 6.8 g/dL Normal (applies MEDGEN (St [Mass/volume] in to non-numeric Ez's Serum or Plasma results) Medical, ) Albumin, Serum 4.1 g/dL Normal (applies MEDGEN (S t to non-numeric Ez's results) Medical, ) Globulin, Total 2.7 g/dL Normal (applies MEDGEN ( St to non-numeric Ez's results) Medical, ) A/G Ratio 1.5 Normal (applies MEDGEN (St to non-numeric Ez's results) Medical, ) Bilirubin.total 0.4 Normal (applies MEDGEN ( St [Mass/volume] in mg/dL to non-numeric Ez's Serum or Plasma results) Medical, ) Alkaline 70 IU/L Normal (applies MEDGEN (St Phosphatase, S to non-numeric Ez's results) Medical, ) Alanine 14 IU/L Normal (applies MEDGEN (St aminotransferase to non-numeric Ez's [Enzymatic results) Medical, activity/volume] in PC) Serum or Plasma Aspartate 17 IU/L Normal (applies MEDGEN (St aminotransferase to non-numeric Ez's [Enzymatic results) Medical, activity/volume] in PC) Serum or Plasma Glucose 361 Above high MEDGEN (St [Mass/volume] in mg/dL normal Ez's Urine collected for Medical, unspecified PC) duration Urea nitrogen 33 mg/dL Above high MEDGEN (St [Mass/volume] in normal Ez's Serum or Plasma Medical, ) eGFR If NonAfricn 61 Normal (applies MEDGEN (St Am mL/min/1 to non-numeric Ez's .73 results) Medical, PC) Creatinine 1.01 Above high MEDGEN (St [Interpretation] in mg/dL normal Ez's Urine Medical, ) eGFR If Africn Am 70 Normal (applies MEDGEN (St mL/min/1 to non-numeric Ez's .73 results) Medical, PC) Sodium 138 Normal (applies MEDGEN (St [Moles/volume] in mmol/L to non-numeric Ez's Serum or Plasma results) Medical, ) BUN/Creatinine 33 Above high MEDGEN (St Ratio normal Ez's Medical, PC) Chloride 99 Normal (applies MEDGEN (St [Moles/volume] in mmol/L to non-numeric Ez's Serum or Plasma results) Medical, PC) Potassium 5.1 Normal (applies MEDGEN (St [Mass/volume] in mmol/L to non-numeric Ez's Blood results) Medical, ) Carbon dioxide, 23 Normal (applies MEDGEN ( St total mmol/L to non-numeric Ez's [Moles/volume] in results) Medical, Serum or Plasma PC) Calcium 10.9 Above high MEDGEN (St [Moles/volume] in mg/dL normal Ez's Urine collected for Medical, unspecified PC) duration Microalbumin 4.1 g/dL Normal (applies MEDGEN (St [Mass/time] in to non-numeric Ez's Urine collected for results) Medical, unspecified PC) duration Protein 6.8 g/dL Normal (applies MEDGEN (St [Mass/volume] in to non-numeric Ez's Serum or Plasma results) Medical, PC) A/G Ratio 1.5 Normal (applies MEDGEN (St to non-numeric Ez's results) Medical, PC) Globulin, Total 2.7 g/dL Normal (applies MEDGEN ( St to non-numeric Ez's results) Medical, PC) Bilirubin.total <0.2 Normal (applies MEDGEN ( St [Mass/volume] in to non-numeric Ez's Serum or Plasma results) Medical, PC) Alkaline 70 IU/L Normal (applies MEDGEN (St phosphatase to non-numeric Ez's [Enzymatic results) Medical, activity/volume] in PC) Serum, Plasma or Blood Aspartate 14 IU/L Normal (applies MEDGEN (St aminotransferase to non-numeric Ez's [Enzymatic results) Medical, activity/volume] in PC) Serum or Plasma Alanine 17 IU/L Normal (applies MEDGEN (St aminotransferase to non-numeric Ez's [Enzymatic results) Medical, activity/volume] in PC) Serum or Plasma Glucose 292 Above high MEDGEN (St [Mass/volume] in mg/dL normal Ez's Urine collected for Medical, unspecified PC) duration Creatinine 1.26 Above high MEDGEN (St [Interpretation] in mg/dL normal Ez's Urine [facility], ) Urea nitrogen 30 mg/dL Above high MEDGEN (St [Mass/volume] in normal Ez's Serum or Plasma [facility], ) eGFR If NonAfricn 46 Below low normal MEDGE N (St Am mL/min/1 [facility] .73 [facility], ) eGFR If Africn Am 54 Below low normal MEDGE N (St mL/min/1 [facility] .73 [facility], ) BUN/Creatinine 24 Normal (applies MEDGEN (S t Ratio to non-numeric Ez's results) Medical, ) Sodium 142 Normal (applies MEDGEN (St [Moles/volume] in mmol/L to non-numeric Ez's Serum or Plasma results) Medical, ) Potassium 4.7 Normal (applies MEDGEN (St [Mass/volume] in mmol/L to non-numeric Ez's Blood results) Medical, ) Chloride 104 Normal (applies MEDGEN (St [Moles/volume] in mmol/L to non-numeric Ez's Serum or Plasma results) Medical, ) Calcium 9.7 Normal (applies MEDGEN (St [Moles/volume] in mg/dL to non-numeric Ez's Urine collected for results) Medical, unspecified PC) duration Carbon dioxide, 22 Normal (applies MEDGEN ( St total mmol/L to non-numeric Ez's [Moles/volume] in results) Medical, Serum or Plasma PC) Protein 6.4 g/dL Normal (applies MEDGEN (St [Mass/volume] in to non-numeric Ez's Serum or Plasma results) Medical, ) Microalbumin 3.9 g/dL Normal (applies MEDGEN (St [Mass/time] in to non-numeric Ez's Urine collected for results) Medical, unspecified PC) duration Globulin, Total 2.5 g/dL Normal (applies MEDGEN ( St to non-numeric Ez's results) [facility], ) Bilirubin.total <0.2 Normal (applies MEDGEN ( St [Mass/volume] in to non-numeric Ez's Serum or Plasma results) [facility], ) A/G Ratio 1.6 Normal (applies MEDGEN (St to non-numeric Ez's results) [facility], ) Aspartate 17 IU/L Normal (applies MEDGEN (St aminotransferase to non-numeric Ez's [Enzymatic results) Medical, activity/volume] in ) Serum or Plasma Alkaline 70 IU/L Normal (applies MEDGEN (St phosphatase to non-numeric Ez's [Enzymatic results) Medical, activity/volume] in ) Serum, Plasma or Blood Glucose, Serum 473 Above high MEDGEN (St mg/dL normal [facility], ) Alanine 26 IU/L Normal (applies MEDGEN (St aminotransferase to non-numeric Ez's [Enzymatic results) Medical, activity/volume] in ) Serum or Plasma Urea nitrogen 12 mg/dL Normal (applies MEDGEN (St [Mass/volume] in to non-numeric Ez's Serum or Plasma results) [facility], ) Creatinine, Serum 1.07 Above high MEDGEN (St mg/dL normal [facility], ) eGFR If NonAfricn 57 Below low normal MEDGE N (St Am mL/min/1 Ez's .73 [facility], ) eGFR If Africn Am 66 Normal (applies MEDGEN (St mL/min/1 to non-numeric Ez's .73 results) [facility], ) BUN/Creatinine 11 Normal (applies MEDGEN (S t Ratio to non-numeric Ez's results) [facility], ) Sodium 138 Normal (applies MEDGEN (St [Moles/volume] in mmol/L to non-numeric Ez's Serum or Plasma results) [facility], ) Potassium, Serum 4.3 Normal (applies MEDGEN (St mmol/L to non-numeric Ez's results) [facility], ) Chloride 99 Normal (applies MEDGEN (St [Moles/volume] in mmol/L to non-numeric Ez's Serum or Plasma results) [facility], ) Carbon dioxide, 21 Normal (applies MEDGEN ( St total mmol/L to non-numeric Ez's [Moles/volume] in results) Medical, Serum or Plasma PC) Calcium, Serum 9.3 Normal (applies MEDGEN (S t mg/dL to non-numeric Ez's results) Medical, ) Protein 6.3 g/dL Normal (applies MEDGEN (St [Mass/volume] in to non-numeric Ez's Serum or Plasma results) Medical, ) Globulin, Total 2.6 g/dL Normal (applies MEDGEN ( St to non-numeric Ez's results) Medical, ) Albumin, Serum 3.7 g/dL Normal (applies MEDGEN (S t to non-numeric Ez's results) Medical, ) A/G Ratio 1.4 Normal (applies MEDGEN (St to non-numeric Ez's results) [facility], ) Bilirubin.total <0.2 Normal (applies MEDGEN ( St [Mass/volume] in to non-numeric Ez's Serum or Plasma results) Medical, ) Alkaline 123 IU/L Above high MEDGEN (St Phosphatase, S normal Ez's [facility], ) Alanine 18 IU/L Normal (applies MEDGEN (St aminotransferase to non-numeric Ez's [Enzymatic results) Medical, activity/volume] in PC) Serum or Plasma Aspartate 13 IU/L Normal (applies MEDGEN (St aminotransferase to non-numeric Ez's [Enzymatic results) Medical, activity/volume] in PC) Serum or Plasma Glucose 108 Above high MEDGEN (St [Mass/volume] in mg/dL normal Ez's Urine collected for Medical, unspecified PC) duration Urea nitrogen 35 mg/dL Above high MEDGEN (St [Mass/volume] in normal Ez's Serum or Plasma [facility], ) eGFR If NonAfricn 56 Below low normal MEDGE N (St Am mL/min/1 Ez's .73 [facility], ) Creatinine 1.09 Above high MEDGEN (St [Interpretation] in mg/dL normal Ez's Urine [facility], ) BUN/Creatinine 32 Above high MEDGEN (St Ratio normal Ez's Medical, ) eGFR If Africn Am 64 Normal (applies MEDGEN (St mL/min/1 to non-numeric Ez's .73 results) Medical, ) Sodium 143 Normal (applies MEDGEN (St [Moles/volume] in mmol/L to non-numeric Ez's Serum or Plasma results) Medical, PC) Chloride 109 Above high MEDGEN (St [Moles/volume] in mmol/L normal Ez's Serum or Plasma Medical, PC) Potassium 4.9 Normal (applies MEDGEN (St [Mass/volume] in mmol/L to non-numeric Ez's Blood results) Medical, ) Carbon dioxide, 24 Normal (applies MEDGEN ( St total mmol/L to non-numeric Ez's [Moles/volume] in results) Medical, Serum or Plasma PC) Calcium 10.2 Normal (applies MEDGEN (St [Moles/volume] in mg/dL to non-numeric Ez's Urine collected for results) Medical, unspecified PC) duration Microalbumin 4.0 g/dL Normal (applies MEDGEN (St [Mass/time] in to non-numeric Ez's Urine collected for results) [facility], unspecified PC) duration Protein 7.0 g/dL Normal (applies MEDGEN (St [Mass/volume] in to non-numeric Ez's Serum or Plasma results) Medical, PC) Globulin, Total 3.0 g/dL Normal (applies MEDGEN ( St to non-numeric Ez's results) Medical, PC) A/G Ratio 1.3 Normal (applies MEDGEN (St to non-numeric Ez's results) Medical, PC) Alkaline 124 IU/L Above high MEDGEN (St phosphatase normal Ez's [Enzymatic Medical, activity/volume] in PC) Serum, Plasma or Blood Bilirubin.total <0.2 Normal (applies MEDGEN ( St [Mass/volume] in to non-numeric Ez's Serum or Plasma results) Medical, PC) Alanine 64 IU/L Above high MEDGEN (St aminotransferase normal Ez's [Enzymatic Medical, activity/volume] in PC) Serum or Plasma Aspartate 33 IU/L Normal (applies MEDGEN (St aminotransferase to non-numeric Ez's [Enzymatic results) Medical, activity/volume] in PC) Serum or Plasma ID Date Data Source [id number] 10/15/2016 12:00:00 AM EDT MED[facility] ([facility], ) Name Value Range Interpretation Code Description Data Sandie rce(s) Supporting Document(s ) ID Date Data Source [id number] 10/15/2016 12:00:00 AM EDT [facility] ([facility], ) Name Value Range Interpretation Code Description Data Sandie rce(s) Supporting Document(s ) PDF Image . Normal (applies to MEDGEN (St non-numeric results) [facility], ) ID Date Data Source [id number] 10/15/2016 12:00:00 AM EDT MEDGEN ([facility], ) Name Value Range Interpretation Code Description Data Sandie rce(s) Supporting Document(s ) TSH 1.600 Normal (applies to MEDGEN (St uIU/mL non-numeric results) [facility], ) ID Date Data Source [id number] 10/15/2016 12:00:00 AM EDT MEDGEN ([facility], ) Name Value Range Interpretation Description Data Sup porting Code Source(s) Document(s ) Vitamin D, 17.3 Below low normal MEDGEN (St 25-Hydroxy ng/mL [facility], ) ID Date Data Source [id number] 10/15/2016 12:00:00 AM EDT MEDGEN ([facility], ) Name Value Range Interpretation Description Data Sup porting Code Source(s) Document(s ) Hemoglobin 15.0 % Above high normal MEDGEN (St A1c/Hemoglobin Ez's .total in [facility], ) Blood ID Date Data Source [id number] 10/15/2016 12:00:00 AM EDT MEDGEN ([facility], ) Name Value Range Interpretation Description Data Sup porting Code Source(s) Document(s ) Vitamin B12 883 pg/mL Normal (applies to MEDGEN (S t non-numeric Ez's results) Medical, ) Folate 13.3 Normal (applies to MEDGEN (St (Folic ng/mL non-numeric Ez's Acid), Serum results) [facility], ) ID Date Data Source [id number] 10/15/2016 12:00:00 AM EDT MEDGEN ([facility], ) Name Value Range Interpretation Description Data Sup porting Code Source(s) Document(s ) Bilirubin.c 0.08 mg/dL Normal (applies to MEDGEN ( St onjugated non-numeric Ez's [Mass/volum results) Medical, ) e] in Serum or Plasma ID Date Data Source [id number] 10/15/2016 12:00:00 AM EDT [facility] ([facility], ) Name Value Range Interpretation Description Data Sup porting Code Source(s) Document(s ) Cholesterol 276 Above high normal MEDGEN (St [Mass/volume] in mg/dL Ez's Serum or Plasma Medical, ) Triglyceride 197 Above high normal MEDGEN (S t [Mass/volume] in mg/dL Ez's Serum or Plasma Medical, ) HDL Cholesterol 44 mg/dL Normal (applies MEDGEN ( St to non-numeric Ez's results) Medical, ) VLDL Cholesterol 39 mg/dL Normal (applies MEDGEN (St [place] to non-numeric Ez's results) Medical, ) LDL Cholesterol 193 Above high normal MEDGEN (St Calc mg/dL Ez's Medical, ) Comment: Normal (applies MEDGEN (St to non-numeric Ez's results) Medical, ) ID Date Data Source [id number] 10/15/2016 12:00:00 AM EDT [facility] ([facility], ) Name Value Range Interpretation Description Data Sup porting Code Source(s) Document(s ) WBC 6-10 Abnormal (applies MEDGEN (St to non-numeric Ez's results) Medical, PC) RBC 0-2 Normal (applies to MEDGEN (St non-numeric Ez's results) Medical, ) Epithelial 0-10 Normal (applies to MEDGEN (St Cells (non non-numeric Ez's renal) results) Medical, ) Mucus Threads Present Normal (applies to MEDGEN (St non-numeric Ez's results) Medical, ) Bacteria Few Normal (applies to MEDGEN (St [Presence] in non-numeric Ez's Prostatic results) Medical, ) fluid by Light microscopy ID Date Data Source [id number] 10/15/2016 12:00:00 AM EDT [facility] ([facility], ) Name Value Range Interpretation Description Data Sup porting Code Source(s) Document(s ) pH of Lower 5.5 Normal (applies MEDGEN (St respiratory to non-numeric Ez's specimen results) Medical, ) Specific gravity 1.023 Normal (applies MEDGEN (St of Pericardial to non-numeric Ez's fluid by results) Medical, Refractometry ) Urine-Color Yellow Normal (applies MEDGEN (St to non-numeric Ez's results) Medical, ) Appearance of Cloudy Abnormal MEDGEN (St Abdomen (applies to Ezs non-numeric Medical, results) PC) WBC Esterase Trace Abnormal MEDGEN (St (applies to Ez's non-numeric Medical, results) PC) Protein Negative Normal (applies MEDGEN (St [Mass/volume] in to non-numeric Ez's Lower results) Medical, respiratory PC) specimen Ketones Negative Normal (applies MEDGEN (St [Presence] in to non-numeric Ez's Blood by Tablet results) Medical, ) Glucose Abnormal MEDGEN (St [Mass/volume] in (applies to Ez's Urine collected non-[facility] Medical, for unspecified results) ) duration Occult Blood Negative Normal (applies MEDGEN (St to non-numeric Ez's results) Medical, ) Urobilinogen,Dominique 0.2 EU/dL Normal (applies MEDGEN (St i-Qn to non-numeric Ez's results) Medical, ) Bilirubin Negative Normal (applies MEDGEN (St [Presence] in to non-numeric Ez's Peritoneal fluid results) Medical, ) Nitrite, Urine Negative Normal (applies MEDGEN (S t to non-numeric Ez's results) Medical, ) Microscopic See below: Normal (applies MEDGEN (St Examination to non-numeric Ez's results) Medical, ) ID Date Data Source [id number] 10/15/2016 12:00:00 AM EDT MEDGEN ([facility], ) Name Value Range Interpretation Description Data Sup porting Code Source(s) Document(s ) Glucose, Serum 473 Above high MEDGEN (St mg/dL normal [facility], ) Urea nitrogen 12 mg/dL Normal (applies MEDGEN (St [Mass/volume] in to non-numeric Ez's Serum or Plasma results) Medical, ) Creatinine, Serum 1.07 Above high MEDGEN (St mg/dL normal [facility], ) eGFR If NonAfricn 57 Below low normal MEDGE N (St Am mL/min/1 [facility] .73 Medical, ) eGFR If Africn Am 66 Normal (applies MEDGEN (St mL/min/1 to non-numeric Ez's .73 results) Medical, ) BUN/Creatinine 11 Normal (applies MEDGEN (S t Ratio to non-numeric Ez's results) Medical, ) Sodium 138 Normal (applies MEDGEN (St [Moles/volume] in mmol/L to non-numeric Ez's Serum or Plasma results) Medical, ) Potassium, Serum 4.3 Normal (applies MEDGEN (St mmol/L to non-numeric Ez's results) [facility], ) Carbon dioxide, 21 Normal (applies MEDGEN ( St total mmol/L to non-numeric Ez's [Moles/volume] in results) Medical, Serum or Plasma PC) Chloride 99 Normal (applies MEDGEN (St [Moles/volume] in mmol/L to non-numeric Ez's Serum or Plasma results) [facility], ) Calcium, Serum 9.3 Normal (applies MEDGEN (S t mg/dL to non-numeric Ez's results) [facility], ) Albumin, Serum 3.7 g/dL Normal (applies MEDGEN (S t to non-numeric Ez's results) [facility], ) Protein 6.3 g/dL Normal (applies MEDGEN (St [Mass/volume] in to non-numeric Ez's Serum or Plasma results) [facility], ) Globulin, Total 2.6 g/dL Normal (applies MEDGEN ( St to non-numeric Ez's results) [facility], ) A/G Ratio 1.4 Normal (applies MEDGEN (St to non-numeric Ez's results) [facility], ) Bilirubin.total <0.2 Normal (applies MEDGEN ( St [Mass/volume] in to non-numeric Ez's Serum or Plasma results) [facility], ) Alkaline 123 IU/L Above high MEDGEN (St Phosphatase, S normal Ez's [facility], ) Aspartate 13 IU/L Normal (applies MEDGEN (St aminotransferase to non-numeric Ez's [Enzymatic results) Medical, activity/volume] in ) Serum or Plasma Alanine 18 IU/L Normal (applies MEDGEN (St aminotransferase to non-numeric Ez's [Enzymatic results) Medical, activity/volume] in ) Serum or Plasma ID Date Data Source [id number] 10/15/2016 12:00:00 AM EDT [facility] ([facility], ) Name Value Range Interpretation Description Data Sup porting Code Source(s) Document(s ) Leukocytes 9.5 Normal (applies MEDGEN (St [#/volume] in x10E3/uL to non-numeric Ez's Blood by results) [facility], ) Automated count Erythrocytes 4.31 Normal (applies MEDGEN (St [#/volume] in x10E6/uL to non-numeric Ez's Blood by results) [facility], ) Automated count Hemoglobin 12.2 Normal (applies MEDGEN (St [Mass/volume] in g/dL to non-numeric Ez's Blood results) [facility], ) Hematocrit 36.9 % Normal (applies MEDGEN (St [Volume to non-numeric Ez's Fraction] of results) [facility], ) Blood by Automated count MCV 86 fL Normal (applies MEDGEN (St to non-numeric Ez's results) [facility], ) MCH 28.3 pg Normal (applies MEDGEN (St to non-numeric Ez's results) [facility], ) MCHC 33.1 Normal (applies MEDGEN (St g/dL to non-numeric Ez's results) [facility], ) RDW 13.3 % Normal (applies MEDGEN (St to non-numeric Ez's results) [facility], ) Platelets 371 Normal (applies MEDGEN (St [#/area] in x10E3/uL to non-numeric Ez's Blood by results) [facility], ) Microscopy high power field Neutrophils [#] 70 % Normal (applies MEDGEN ( St in Body fluid by to non-numeric Ez's Manual count results) [facility], ) Lymphs 21 % Normal (applies MEDGEN (St to non-numeric Ez's results) [facility]) Monocytes 8 % Normal (applies MEDGEN (St [#/volume] in to non-numeric Ez's Cord blood results) [facility], ) Basos 0 % Normal (applies MEDGEN (St to non-numeric Ez's results) [facility], ) Eos 1 % Normal (applies MEDGEN (St to non-numeric Ez's results) [facility], ) Neutrophils 6.7 Normal (applies MEDGEN (St (Absolute) x10E3/uL to non-numeric Ez's results) [facility], ) Lymphs 2.0 Normal (applies MEDGEN (St (Absolute) x10E3/uL to non-numeric Ez's results) [facility], ) Monocytes(Absolu 0.7 Normal (applies MEDGEN (St te) x10E3/uL to non-numeric Ez's results) [facility], ) Eos (Absolute) 0.1 Normal (applies MEDGEN (S t x10E3/uL to non-numeric Ez's results) Medical, ) Baso (Absolute) 0.0 Normal (applies MEDGEN ( St x10E3/uL to non-numeric Ez's results) Medical, ) Immature 0 % Normal (applies MEDGEN (St Granulocytes to non-numeric Ez's results) Medical, ) Immature Grans 0.0 Normal (applies MEDGEN (S t (Abs) x10E3/uL to non-numeric Ez's results) Medical, ) ID Date Data Source [id number] 10/15/2016 12:00:00 AM EDT [facility] ([facility], ) Name Value Range Interpretation Code Description Data Sandie rce(s) Supporting Document(s ) ID Date Data Source [id number] 10/15/2016 12:00:00 AM EDT [facility]GEN ([facility], ) Name Value Range Interpretation Code Description Data Sandie rce(s) Supporting Document(s ) PDF Image . Normal (applies to MEDGEN (St non-numeric results) [facility], ) ID Date Data Source [id number] 10/15/2016 12:00:00 AM EDT MEDGEN ([facility], ) Name Value Range Interpretation Code Description Data Sandie rce(s) Supporting Document(s ) TSH 1.600 Normal (applies to MEDGEN (St uIU/mL non-numeric results) [facility], ) ID Date Data Source [id number] 10/15/2016 12:00:00 AM EDT MEDGEN ([facility], ) Name Value Range Interpretation Description Data Sup porting Code Source(s) Document(s ) Vitamin D, 17.3 Below low normal MEDGEN (St 25-Hydroxy ng/mL [facility], ) ID Date Data Source [id number] 10/15/2016 12:00:00 AM EDT [facility] ([facility], ) Name Value Range Interpretation Description Data Sup porting Code Source(s) Document(s ) Hemoglobin 15.0 % Above high normal MEDGEN (St A1c/Hemoglobin Ez's .total in [facility], ) Blood ID Date Data Source [id number] 10/15/2016 12:00:00 AM EDT [facility] ([facility], ) Name Value Range Interpretation Description Data Sup porting Code Source(s) Document(s ) Vitamin B12 883 pg/mL Normal (applies to [facility] (S t non-numeric Ez's results) Medical, ) Folate 13.3 Normal (applies to MED[facility] (St (Folic ng/mL non-numeric Ez's Acid), Serum results) [facility], ) ID Date Data Source [id number] 10/15/2016 12:00:00 AM EDT [facility] ([facility], ) Name Value Range Interpretation Description Data Sup porting Code Source(s) Document(s ) Bilirubin.c 0.08 mg/dL Normal (applies to MEDGEN ( St onjugated non-numeric Ez's [Mass/volum results) Medical, ) e] in Serum or Plasma ID Date Data Source [id number] 10/15/2016 12:00:00 AM EDT [facility] ([facility], ) Name Value Range Interpretation Description Data Sup porting Code Source(s) Document(s ) Cholesterol 276 Above high normal MEDGEN (St [Mass/volume] in mg/dL Ez's Serum or Plasma [facility], ) Triglyceride 197 Above high normal [facility] (S t [Mass/volume] in mg/dL Ez's Serum or Plasma Medical, ) HDL Cholesterol 44 mg/dL Normal (applies [facility]GEN ( St to non-numeric Ez's results) [facility], ) VLDL Cholesterol 39 mg/dL Normal (applies MED[facility] (St [place] to non-numeric Ez's results) [facility], ) LDL Cholesterol 193 Above high normal [facility] (St Calc mg/dL Ez's [facility], ) Comment: Normal (applies [facility] (St to non-numeric Ez's results) [facility], ) ID Date Data Source [id number] 10/15/2016 12:00:00 AM EDT [facility] ([facility], ) Name Value Range Interpretation Description Data Sup porting Code Source(s) Document(s ) WBC 6-10 Abnormal (applies [facility] (St to non-numeric Ez's results) Medical, ) RBC 0-2 Normal (applies to [facility] (St non-numeric Ez's results) Medical, ) Epithelial 0-10 Normal (applies to [facility] (St Cells (non non-numeric Ez's renal) results) [facility], PC) Mucus Threads Present Normal (applies to [facility] (St non-numeric Ez's results) [facility], PC) Bacteria Few Normal (applies to [facility] (St [Presence] in non-numeric Ez's Prostatic results) Medical, PC) fluid by Light microscopy ID Date Data Source [id number] 10/15/2016 12:00:00 AM EDT [facility] Name Value Range Interpretation Description Data Sup porting Code Source(s) Document(s ) Specific gravity 1.023 Normal (applies MED[facility] (St of Pericardial to non-numeric Ez's fluid by results) Medical, Refractometry PC) pH of Lower 5.5 Normal (applies [facility] (St respiratory to non-numeric Ez's specimen results) [facility], [facility]) Urine-Color Yellow Normal (applies [facility] (St to non-numeric Ez's results) [facility], PC) Appearance of Cloudy Abnormal [facility] (St Abdomen (applies to Ez's non-numeric Medical, results) PC) WBC Esterase Trace Abnormal [facility] (St (applies to Ez's non-numeric Medical, results) PC) Protein Negative Normal (applies [facility] (St [Mass/volume] in to non-numeric Ez's Lower results) Medical, respiratory PC) specimen Glucose Abnormal MED[facility] (St [Mass/volume] in (applies to Ez's Urine collected non-numeric Medical, for unspecified results) PC) duration Ketones Negative Normal (applies [facility] (St [Presence] in to non-numeric Ez's Blood by Tablet results) Medical, PC) Occult Blood Negative Normal (applies [facility] (St to non-numeric Ez's results) Medical, PC) Bilirubin Negative Normal (applies [facility] (St [Presence] in to non-numeric Ez's Peritoneal fluid results) Medical, PC) Urobilinogen,Dominique 0.2 EU/dL Normal (applies [facility] (St i-Qn to non-numeric Ez's results) Medical, PC) Nitrite, Urine Negative Normal (applies [facility] (S t to non-numeric Ez's results) Medical, PC) Microscopic See below: Normal (applies [facility] (St Examination to non-numeric Ez's results) Medical, PC) ID Date Data Source [id number] 10/15/2016 12:00:00 AM EDT [facility] ([facility] Name Value Range Interpretation Description Data Sup porting Code Source(s) Document(s ) Glucose, Serum 473 Above high MEDGEN (St mg/dL normal [facility], ) Urea nitrogen 12 mg/dL Normal (applies [facility]GEN (St [Mass/volume] in to non-numeric Ez's Serum or Plasma results) [facility], ) Creatinine, Serum 1.07 Above high MEDGEN (St mg/dL normal [facility], ) eGFR If NonAfricn 57 Below low normal MEDGE N (St Am mL/min/1 Ez's .73 [facility], ) BUN/Creatinine 11 Normal (applies [facility]GEN (S t Ratio to non-numeric Ez's results) Medical, ) eGFR If Africn Am 66 Normal (applies [facility] (St mL/min/1 to non-numeric [facility]'s .73 results) [facility], ) Sodium 138 Normal (applies [facility]GEN (St [Moles/volume] in mmol/L to non-numeric Ez's Serum or Plasma results) [facility], ) Potassium, Serum 4.3 Normal (applies [facility] (St mmol/L to non-numeric Ez's results) [facility], ) Chloride 99 Normal (applies [facility] (St [Moles/volume] in mmol/L to non-numeric Ez's Serum or Plasma results) [facility], ) Carbon dioxide, 21 Normal (applies [facility]GEN ( St total mmol/L to non-numeric Ez's [Moles/volume] in results) [facility], Serum or Plasma PC) Calcium, Serum 9.3 Normal (applies [facility] (S t mg/dL to non-numeric Ez's results) [facility], ) Protein 6.3 g/dL Normal (applies [facility] (St [Mass/volume] in to non-numeric Ez's Serum or Plasma results) [facility], ) Globulin, Total 2.6 g/dL Normal (applies [facility]GEN ( St to non-numeric Ez's results) [facility], ) Albumin, Serum 3.7 g/dL Normal (applies [facility]GEN (S t to non-numeric Ez's results) [facility], ) A/G Ratio 1.4 Normal (applies [facility] (St to non-numeric Ez's results) [facility], ) Bilirubin.total <0.2 Normal (applies [facility] ( St [Mass/volume] in to non-numeric Ez's Serum or Plasma results) [facility], ) Alkaline 123 IU/L Above high MEDGEN (St Phosphatase, S normal Ez's [facility], ) Alanine 18 IU/L Normal (applies [facility] (St aminotransferase to non-numeric Ez's [Enzymatic results) Medical, activity/volume] in ) Serum or Plasma Aspartate 13 IU/L Normal (applies [facility]GEN (St aminotransferase to non-numeric Ez's [Enzymatic results) Medical, activity/volume] in ) Serum or Plasma ID Date Data Source [id number] 10/15/2016 12:00:00 AM EDT [facility] ([facility], ) Name Value Range Interpretation Description Data Sup porting Code Source(s) Document(s ) Leukocytes 9.5 Normal (applies [facility] (St [#/volume] in x10E3/uL to non-numeric Ez's Blood by results) [facility], ) Automated count Erythrocytes 4.31 Normal (applies [facility] (St [#/volume] in x10E6/uL to non-numeric Ez's Blood by results) [facility], ) Automated count Hematocrit 36.9 % Normal (applies [facility] (St [Volume to non-numeric Ez's Fraction] of results) [facility], ) Blood by Automated count Hemoglobin 12.2 Normal (applies [facility] (St [Mass/volume] in g/dL to non-numeric Ez's Blood results) [facility], ) MCV 86 fL Normal (applies [facility] (St to non-numeric Ez's results) [facility], ) MCH 28.3 pg Normal (applies [facility] (St to non-numeric Ez's results) [facility], ) RDW 13.3 % Normal (applies [facility] (St to non-numeric Ez's results) [facility], ) MCHC 33.1 Normal (applies [facility] (St g/dL to non-numeric Ez's results) [facility], ) Platelets 371 Normal (applies MEDGEN (St [#/area] in x10E3/uL to non-numeric Ez's Blood by results) [facility], ) Microscopy high power field Neutrophils [#] 70 % Normal (applies [facility] ( St in Body fluid by to non-numeric Ez's Manual count results) [facility], ) Lymphs 21 % Normal (applies [facility] (St to non-numeric Ez's results) [facility], ) Monocytes 8 % Normal (applies [facility] (St [#/volume] in to non-numeric Ez's Cord blood results) Medical, ) Eos 1 % Normal (applies [facility] (St to non-numeric Ez's results) Medical, ) Basos 0 % Normal (applies [facility] (St to non-numeric Ez's results) Medical, ) Neutrophils 6.7 Normal (applies [facility] (St (Absolute) x10E3/uL to non-numeric Ez's results) Medical, ) Lymphs 2.0 Normal (applies [facility] (St (Absolute) x10E3/uL to non-numeric Ez's results) Medical, ) Monocytes(Absolu 0.7 Normal (applies [facility] (St te) x10E3/uL to non-numeric Ez's results) Medical, ) Eos (Absolute) 0.1 Normal (applies [facility]GEN (S t x10E3/uL to non-numeric Ez's results) Medical, ) Baso (Absolute) 0.0 Normal (applies [facility] ( St x10E3/uL to non-numeric Ez's results) [facility], ) Immature 0 % Normal (applies [facility] (St Granulocytes to non-numeric Ez's results) [facility], ) Immature Grans 0.0 Normal (applies MEDGEN (S t (Abs) x10E3/uL to non-numeric Ez's results) [facility], ) ID Date Data Source [id number] 10/15/2016 12:00:00 AM EDT [facility] ([facility], ) Name Value Range Interpretation Code Description Data Sandie rce(s) Supporting Document(s ) ID Date Data Source [id number] 10/15/2016 12:00:00 AM EDT [facility] ([facility], ) Name Value Range Interpretation Code Description Data Sandie rce(s) Supporting Document(s ) PDF Image . Normal (applies to [facility] (St non-numeric results) [facility]'s [facility], ) ID Date Data Source [id number] 10/15/2016 12:00:00 AM EDT [facility] ([facility], ) Name Value Range Interpretation Code Description Data Sandie rce(s) Supporting Document(s ) TSH 1.600 Normal (applies to [facility] (St uIU/mL non-numeric results) [facility], ) ID Date Data Source [id number] 10/15/2016 12:00:00 AM EDT [facility] ([facility], ) Name Value Range Interpretation Description Data Sup porting Code Source(s) Document(s ) Vitamin D, 17.3 Below low normal MEDGEN (St 25-Hydroxy ng/mL [facility], ) ID Date Data Source [id number] 10/15/2016 12:00:00 AM EDT [facility] ([facility], ) Name Value Range Interpretation Description Data Sup porting Code Source(s) Document(s ) Hemoglobin 15.0 % Above high normal [facility] (St A1c/Hemoglobin Ez's .total in [facility], ) Blood ID Date Data Source [id number] 10/15/2016 12:00:00 AM EDT [facility] ([facility], ) Name Value Range Interpretation Description Data Sup porting Code Source(s) Document(s ) Vitamin B12 883 pg/mL Normal (applies to [facility] (S t non-numeric Ez's results) [facility], ) Folate 13.3 Normal (applies to [facility] (St (Folic ng/mL non-numeric Ez's Acid), Serum results) [facility], ) ID Date Data Source [id number] 10/15/2016 12:00:00 AM EDT [facility] ([facility], ) Name Value Range Interpretation Description Data Sup porting Code Source(s) Document(s ) Bilirubin.c 0.08 mg/dL Normal (applies to [facility] ( St onjugated non-numeric Ez's [Mass/volum results) [facility], ) e] in Serum or Plasma ID Date Data Source [id number] 10/15/2016 12:00:00 AM EDT [facility] ([facility], ) Name Value Range Interpretation Description Data Sup porting Code Source(s) Document(s ) Cholesterol 276 Above high normal [facility] (St [Mass/volume] in mg/dL Ez's Serum or Plasma [facility], ) HDL Cholesterol 44 mg/dL Normal (applies [facility] ( St to non-numeric Ez's results) [facility]) Triglyceride 197 Above high normal [facility]GEN (S t [Mass/volume] in mg/dL [facility]'s Serum or Plasma [facility], ) LDL Cholesterol 193 Above high normal [facility] (St Calc mg/dL Ez's [facility], PC) VLDL Cholesterol 39 mg/dL Normal (applies [facility] (St [place] to non-numeric Ze's results) Medical, PC) ID Date Data Source [id number] 10/15/2016 12:00:00 AM EDT [facility] ([facility], ) Name Value Range Interpretation Description Data Sup porting Code Source(s) Document(s ) WBC 6-10 Abnormal (applies [facility] (St to non-numeric Ez's results) Medical, PC) Epithelial 0-10 Normal (applies to [facility] (St Cells (non non-numeric Ez's renal) results) Medical, PC) RBC 0-2 Normal (applies to [facility] (St non-numeric Ez's results) Medical, PC) Mucus Threads Present Normal (applies to [facility] (St non-numeric Ez's results) Medical, PC) Bacteria Few Normal (applies to [facility] (St [Presence] in non-numeric Ez's Prostatic results) Medical, PC) fluid by Light microscopy ID Date Data Source [id number] 10/15/2016 12:00:00 AM EDT MED[facility] ([facility], ) Name Value Range Interpretation Description Data Sup porting Code Source(s) Document(s ) Specific gravity 1.023 Normal (applies [facility] (St of Pericardial to non-numeric Ez's fluid by results) Medical, Refractometry PC) pH of Lower 5.5 Normal (applies [facility] (St respiratory to non-numeric Ez's specimen results) Medical, PC) Appearance of Cloudy Abnormal MED[facility] (St Abdomen (applies to Ez's non-numeric Medical, results) PC) Urine-Color Yellow Normal (applies [facility] (St to non-numeric Ez's results) Medical, PC) WBC Esterase Trace Abnormal MED[facility] (St (applies to Ez's non-numeric Medical, results) PC) Protein Negative Normal (applies [facility]GEN (St [Mass/volume] in to non-numeric Ez's Lower results) Medical, respiratory PC) specimen Glucose Abnormal MEDGEN (St [Mass/volume] in (applies to Ez's Urine collected non-numeric Medical, for unspecified results) PC) duration Ketones Negative Normal (applies [facility] (St [Presence] in to non-numeric Ez's Blood by Tablet results) Medical, PC) Occult Blood Negative Normal (applies [facility]GEN (St to non-numeric Ez's results) [facility], ) Urobilinogen,Dominique 0.2 EU/dL Normal (applies MEDGEN (St i-Qn to non-numeric Ez's results) [facility], ) Bilirubin Negative Normal (applies [facility] (St [Presence] in to non-numeric Ez's Peritoneal fluid results) [facility], ) Microscopic See below: Normal (applies MEDGEN (St Examination to non-numeric Ze's results) Medical, ) Nitrite, Urine Negative Normal (applies MEDGEN (S t to non-numeric Ez's results) [facility], ) ID Date Data Source [id number] 10/15/2016 12:00:00 AM EDT [facility], ) Name Value Range Interpretation Description Data Sup porting Code Source(s) Document(s ) Urea nitrogen 12 mg/dL Normal (applies MEDGEN (St [Mass/volume] in to non-numeric Ez's Serum or Plasma results) Medical, ) Glucose, Serum 473 Above high MEDGEN (St mg/dL normal [facility], ) Creatinine, Serum 1.07 Above high MEDGEN (St mg/dL normal [facility]) eGFR If NonAfricn 57 Below low normal MEDGE N (St Am mL/min/1 [facility]'s .73 [facility], ) eGFR If Africn Am 66 Normal (applies MEDGEN (St mL/min/1 to non-numeric Ez's .73 results) Medical, ) BUN/Creatinine 11 Normal (applies MEDGEN (S t Ratio to non-numeric Ez's results) Medical, ) Sodium 138 Normal (applies MEDGEN (St [Moles/volume] in mmol/L to non-numeric Ez's Serum or Plasma results) Medical, ) Potassium, Serum 4.3 Normal (applies [facility]GEN (St mmol/L to non-numeric Ez's results) Medical, ) Chloride 99 Normal (applies [facility]GEN (St [Moles/volume] in mmol/L to non-numeric Ez's Serum or Plasma results) Medical, ) Carbon dioxide, 21 Normal (applies MEDGEN ( St total mmol/L to non-numeric Ez's [Moles/volume] in results) Medical, Serum or Plasma PC) Calcium, Serum 9.3 Normal (applies MEDGEN (S t mg/dL to non-numeric Ez's results) [facility], ) Protein 6.3 g/dL Normal (applies MEDGEN (St [Mass/volume] in to non-numeric Ez's Serum or Plasma results) [facility]) Albumin, Serum 3.7 g/dL Normal (applies MEDGEN (S t to non-numeric Ez's results) [facility]) Globulin, Total 2.6 g/dL Normal (applies MEDGEN ( St to non-numeric Ez's results) [facility]) Bilirubin.total <0.2 Normal (applies MEDGEN ( St [Mass/volume] in to non-numeric Ez's Serum or Plasma results) [facility]) A/G Ratio 1.4 Normal (applies MEDGEN (St to non-numeric Ez's results) [facility]) Aspartate 13 IU/L Normal (applies MEDGEN (St aminotransferase to non-numeric Ez's [Enzymatic results) Medical, activity/volume] in ) Serum or Plasma Alkaline 123 IU/L Above high MEDGEN (St Phosphatase, S normal [facility]) Alanine 18 IU/L Normal (applies MEDGEN (St aminotransferase to non-numeric Ez's [Enzymatic results) Medical, activity/volume] in ) Serum or Plasma ID Date Data Source [id number] 10/15/2016 12:00:00 AM EDT [facility] ([facility], ) Name Value Range Interpretation Description Data Sup porting Code Source(s) Document(s ) Erythrocytes 4.31 Normal (applies MEDGEN (St [#/volume] in x10E6/uL to non-numeric Ez's Blood by results) [facility]) Automated count Leukocytes 9.5 Normal (applies [facility]GEN (St [#/volume] in x10E3/uL to non-numeric Ez's Blood by results) [facility]) Automated count Hemoglobin 12.2 Normal (applies [facility]GEN (St [Mass/volume] in g/dL to non-numeric Ez's Blood results) [facility]) Hematocrit 36.9 % Normal (applies MEDGEN (St [Volume to non-numeric Ez's Fraction] of results) [facility]) Blood by Automated count MCH 28.3 pg Normal (applies MEDGEN (St to non-numeric Ez's results) [facility]) MCV 86 fL Normal (applies MEDGEN (St to non-numeric Ez's results) Medical, ) MCHC 33.1 Normal (applies MEDGEN (St g/dL to non-numeric Ez's results) [facility], ) RDW 13.3 % Normal (applies MEDGEN (St to non-numeric Ze's results) [facility], ) Neutrophils [#] 70 % Normal (applies MEDGEN ( St in Body fluid by to non-numeric Ez's Manual count results) [facility], ) Platelets 371 Normal (applies MEDGEN (St [#/area] in x10E3/uL to non-numeric Ez's Blood by results) [facility], ) Microscopy high power field Lymphs 21 % Normal (applies MEDGEN (St to non-numeric Ez's results) [facility], ) Monocytes 8 % Normal (applies MEDGEN (St [#/volume] in to non-numeric Ez's Cord blood results) [facility], ) Eos 1 % Normal (applies MEDGEN (St to non-numeric Ez's results) [facility], ) Neutrophils 6.7 Normal (applies MEDGEN (St (Absolute) x10E3/uL to non-numeric Ez's results) [facility], ) Basos 0 % Normal (applies MEDGEN (St to non-numeric Ez's results) [facility], ) Lymphs 2.0 Normal (applies MEDGEN (St (Absolute) x10E3/uL to non-numeric Ez's results) [facility], ) Monocytes(Absolu 0.7 Normal (applies MEDGEN (St te) x10E3/uL to non-numeric Ez's results) [facility], ) Baso (Absolute) 0.0 Normal (applies MEDGEN ( St x10E3/uL to non-numeric Ez's results) Medical, ) Eos (Absolute) 0.1 Normal (applies MEDGEN (S t x10E3/uL to non-numeric Ez's results) [facility], ) Immature 0 % Normal (applies MEDGEN (St Granulocytes to non-numeric Ez's results) [facility], ) Immature Grans 0.0 Normal (applies MEDGEN (S t (Abs) x10E3/uL to non-numeric Ez's results) [facility], ) ID Date Data Source [id number] 10/15/2016 12:00:00 AM EDT [facility] ([facility], ) Name Value Range Interpretation Code Description Data Sandie rce(s) Supporting Document(s ) ID Date Data Source [id number] 10/15/2016 12:00:00 AM EDT [facility] ([facility], ) Name Value Range Interpretation Code Description Data Sandie rce(s) Supporting Document(s ) PDF Image . Normal (applies to [facility]GEN (St non-numeric results) [facility]) ID Date Data Source [id number] 10/15/2016 12:00:00 AM EDT [facility] ([facility], ) Name Value Range Interpretation Code Description Data Sandie rce(s) Supporting Document(s ) TSH 1.600 Normal (applies to MEDGEN (St uIU/mL non-numeric results) [facility], ) ID Date Data Source [id number] 10/15/2016 12:00:00 AM EDT [facility] ([facility], ) Name Value Range Interpretation Description Data Sup porting Code Source(s) Document(s ) Vitamin D, 17.3 Below low normal MEDGEN (St 25-Hydroxy ng/mL [facility], ) ID Date Data Source [id number] 10/15/2016 12:00:00 AM EDT [facility] ([facility], ) Name Value Range Interpretation Description Data Sup porting Code Source(s) Document(s ) Hemoglobin 15.0 % Above high normal [facility]GEN (St A1c/Hemoglobin Ez's .total in [facility], ) Blood ID Date Data Source [id number] 10/15/2016 12:00:00 AM EDT [facility] ([facility], ) Name Value Range Interpretation Description Data Sup porting Code Source(s) Document(s ) Vitamin B12 883 pg/mL Normal (applies to MEDGEN (S t non-numeric Ez's results) [facility], ) Folate 13.3 Normal (applies to MEDGEN (St (Folic ng/mL non-numeric Ez's Acid), Serum results) [facility], ) ID Date Data Source [id number] 10/15/2016 12:00:00 AM EDT [facility] ([facility], ) Name Value Range Interpretation Description Data Sup porting Code Source(s) Document(s ) Bilirubin.c 0.08 mg/dL Normal (applies to MEDGEN ( St onjugated non-numeric Ez's [Mass/volum results) Medical, ) e] in Serum or Plasma ID Date Data Source [id number] 10/15/2016 12:00:00 AM EDT [facility] ([facility], ) Name Value Range Interpretation Description Data Sup porting Code Source(s) Document(s ) Triglyceride 197 Above high normal MEDGEN (S t [Mass/volume] in mg/dL Ez's Serum or Plasma Medical, ) Cholesterol 276 Above high normal [facility] (St [Mass/volume] in mg/dL Ez's Serum or Plasma [facility], ) HDL Cholesterol 44 mg/dL Normal (applies MEDGEN ( St to non-numeric Ez's results) Medical, ) LDL Cholesterol 193 Above high normal MEDGEN (St Calc mg/dL Ez's [facility], ) VLDL Cholesterol 39 mg/dL Normal (applies MEDGEN (St [place] to non-numeric Ez's results) Medical, ) ID Date Data Source [id number] 10/15/2016 12:00:00 AM EDT [facility] ([facility], ) Name Value Range Interpretation Description Data Sup porting Code Source(s) Document(s ) WBC 6-10 Abnormal (applies MEDGEN (St to non-numeric Ez's results) Medical, ) RBC 0-2 Normal (applies to MEDGEN (St non-numeric Ez's results) Medical, ) Epithelial 0-10 Normal (applies to MEDGEN (St Cells (non non-numeric Ez's renal) results) Medical, ) Mucus Threads Present Normal (applies to MEDGEN (St non-numeric Ez's results) Medical, ) Bacteria Few Normal (applies to MEDGEN (St [Presence] in non-numeric Ez's Prostatic results) Medical, ) fluid by Light microscopy ID Date Data Source [id number] 10/15/2016 12:00:00 AM EDT [facility] ([facility], ) Name Value Range Interpretation Description Data Sup porting Code Source(s) Document(s ) Specific gravity 1.023 Normal (applies MEDGEN (St of Pericardial to non-numeric Ez's fluid by results) Medical, Refractometry ) pH of Lower 5.5 Normal (applies MEDGEN (St respiratory to non-numeric Ez's specimen results) Medical, ) Urine-Color Yellow Normal (applies MEDGEN (St to non-numeric Ez's results) Medical, ) Appearance of Cloudy Abnormal MEDGEN (St Abdomen (applies to Ez's non-numeric Medical, results) PC) Protein Negative Normal (applies MEDGEN (St [Mass/volume] in to non-numeric Ez's Lower results) Medical, respiratory PC) specimen WBC Esterase Trace Abnormal MEDGEN (St (applies to Ez's non-numeric Medical, results) PC) Ketones Negative Normal (applies MEDGEN (St [Presence] in to non-numeric Ez's Blood by Tablet results) Medical, ) Glucose Abnormal MEDGEN (St [Mass/volume] in (applies to Ez's Urine collected [facility] Medical, for unspecified results) PC) duration Occult Blood Negative Normal (applies MEDGEN (St to non-numeric Ez's results) Medical, ) Bilirubin Negative Normal (applies [facility] (St [Presence] in to non-numeric Ez's Peritoneal fluid results) Medical, ) Urobilinogen,Dominique 0.2 EU/dL Normal (applies [facility] (St i-Qn to non-numeric Ez's results) Medical, ) Microscopic See below: Normal (applies [facility] (St Examination to non-numeric Ez's results) Medical, ) Nitrite, Urine Negative Normal (applies [facility] (S t to non-numeric Ez's results) Medical, ) ID Date Data Source [id number] 10/15/2016 12:00:00 AM EDT [facility] ([facility], ) Name Value Range Interpretation Description Data Sup porting Code Source(s) Document(s ) Glucose, Serum 473 Above high MEDGEN (St mg/dL normal [facility], ) Urea nitrogen 12 mg/dL Normal (applies [facility] (St [Mass/volume] in to non-numeric Ez's Serum or Plasma results) Medical, ) Creatinine, Serum 1.07 Above high MEDGEN (St mg/dL normal [facility], ) eGFR If NonAfricn 57 Below low normal MEDGE N (St Am mL/min/1 [facility] .73 Medical, ) eGFR If Africn Am 66 Normal (applies [facility]GEN (St mL/min/1 to non-numeric [facility] .73 results) Medical, ) BUN/Creatinine 11 Normal (applies [facility]GEN (S t Ratio to non-numeric Ez's results) [facility], ) Sodium 138 Normal (applies [facility] (St [Moles/volume] in mmol/L to non-numeric Ez's Serum or Plasma results) [facility], ) Potassium, Serum 4.3 Normal (applies [facility] (St mmol/L to non-numeric Ez's results) [facility], ) Chloride 99 Normal (applies [facility] (St [Moles/volume] in mmol/L to non-numeric Ez's Serum or Plasma results) [facility], ) Calcium, Serum 9.3 Normal (applies [facility] (S t mg/dL to non-numeric Ez's results) [facility], ) Carbon dioxide, 21 Normal (applies [facility]GEN ( St total mmol/L to non-numeric Ez's [Moles/volume] in results) Medical, Serum or Plasma PC) Protein 6.3 g/dL Normal (applies [facility] (St [Mass/volume] in to non-numeric Ez's Serum or Plasma results) [facility], ) Albumin, Serum 3.7 g/dL Normal (applies [facility]GEN (S t to non-numeric Ez's results) [facility], ) Globulin, Total 2.6 g/dL Normal (applies [facility] ( St to non-numeric Ez's results) [facility], ) Bilirubin.total <0.2 Normal (applies [facility] ( St [Mass/volume] in to non-numeric Ez's Serum or Plasma results) [facility], ) A/G Ratio 1.4 Normal (applies [facility] (St to non-numeric Ez's results) [facility], ) Alkaline 123 IU/L Above high MED[facility] (St Phosphatase, S normal Ez's [facility], ) Aspartate 13 IU/L Normal (applies [facility] (St aminotransferase to non-numeric Ez's [Enzymatic results) Medical, activity/volume] in ) Serum or Plasma Alanine 18 IU/L Normal (applies [facility] (St aminotransferase to non-numeric Ez's [Enzymatic results) Medical, activity/volume] in ) Serum or Plasma ID Date Data Source [id number] 10/15/2016 12:00:00 AM EDT [facility] ([facility], ) Name Value Range Interpretation Description Data Sup porting Code Source(s) Document(s ) Leukocytes 9.5 Normal (applies [facility] (St [#/volume] in x10E3/uL to non-numeric Ez's Blood by results) [facility], ) Automated count Erythrocytes 4.31 Normal (applies [facility] (St [#/volume] in x10E6/uL to non-numeric Ez's Blood by results) [facility], ) Automated count Hemoglobin 12.2 Normal (applies [facility] (St [Mass/volume] in g/dL to non-numeric Ez's Blood results) [facility], ) MCV 86 fL Normal (applies [facility] (St to non-numeric Ez's results) [facility], ) Hematocrit 36.9 % Normal (applies [facility] (St [Volume to non-numeric Ez's Fraction] of results) [facility], ) Blood by Automated count MCH 28.3 pg Normal (applies [facility] (St to non-numeric Ez's results) [facility], ) RDW 13.3 % Normal (applies [facility] (St to non-numeric Ez's results) [facility], ) MCHC 33.1 Normal (applies [facility] (St g/dL to non-numeric Ez's results) [facility], ) Neutrophils [#] 70 % Normal (applies [facility] ( St in Body fluid by to non-numeric Ez's Manual count results) [facility], ) Platelets 371 Normal (applies [facility] (St [#/area] in x10E3/uL to non-numeric Ez's Blood by results) [facility], ) Microscopy high power field Lymphs 21 % Normal (applies [facility] (St to non-numeric Ez's results) [facility], ) Monocytes 8 % Normal (applies [facility] (St [#/volume] in to non-numeric Ez's Cord blood results) [facility], ) Eos 1 % Normal (applies [facility] (St to non-numeric Ez's results) [facility], ) Basos 0 % Normal (applies [facility] (St to non-numeric Ez's results) [facility], ) Neutrophils 6.7 Normal (applies [facility] (St (Absolute) x10E3/uL to non-numeric Ez's results) [facility], ) Lymphs 2.0 Normal (applies [facility] (St (Absolute) x10E3/uL to non-numeric Ez's results) [facility], ) Monocytes(Absolu 0.7 Normal (applies [facility]GEN (St te) x10E3/uL to non-numeric Ez's results) Medical, ) Eos (Absolute) 0.1 Normal (applies [facility] (S t x10E3/uL to non-numeric Ez's results) Medical, ) Immature 0 % Normal (applies [facility] (St Granulocytes to non-numeric Ez's results) Medical, ) Baso (Absolute) 0.0 Normal (applies [facility] ( St x10E3/uL to non-numeric Ez's results) Medical, PC) Immature Grans 0.0 Normal (applies [facility] (S t (Abs) x10E3/uL to non-numeric Ez's results) Medical, ) ID Date Data Source [id number] 10/15/2016 12:00:00 AM EDT [facility] ([facility], ) Name Value Range Interpretation Code Description Data Sandie rce(s) Supporting Document(s ) ID Date Data Source [id number] 10/15/2016 12:00:00 AM EDT [facility] ([facility], ) Name Value Range Interpretation Code Description Data Sandie rce(s) Supporting Document(s ) PDF Image . Normal (applies to [facility] (St non-numeric results) Ez's [facility], ) ID Date Data Source [id number] 10/15/2016 12:00:00 AM EDT [facility] ([facility], ) Name Value Range Interpretation Code Description Data Sandie rce(s) Supporting Document(s ) TSH 1.600 Normal (applies to [facility] (St uIU/mL non-numeric results) [facility], ) ID Date Data Source [id number] 10/15/2016 12:00:00 AM EDT [facility] ([facility], ) Name Value Range Interpretation Description Data Sup porting Code Source(s) Document(s ) Vitamin D, 17.3 Below low normal [facility] (St 25-Hydroxy ng/mL Ez's [facility], ) ID Date Data Source [id number] 10/15/2016 12:00:00 AM EDT [facility] ([facility], ) Name Value Range Interpretation Description Data Sup porting Code Source(s) Document(s ) Hemoglobin 15.0 % Above high normal [facility] (St A1c/Hemoglobin Ez's .total in Medical, ) Blood ID Date Data Source [id number] 10/15/2016 12:00:00 AM EDT [facility] ([facility], ) Name Value Range Interpretation Description Data Sup porting Code Source(s) Document(s ) Vitamin B12 883 pg/mL Normal (applies to [facility]GEN (S t non-numeric Ez's results) [facility], ) Folate 13.3 Normal (applies to [facility] (St (Folic ng/mL non-numeric Ze's Acid), Serum results) [facility], ) ID Date Data Source [id number] 10/15/2016 12:00:00 AM EDT [facility] ([facility], ) Name Value Range Interpretation Description Data Sup porting Code Source(s) Document(s ) Bilirubin.c 0.08 mg/dL Normal (applies to [facility] ( St onjugated non-numeric Ez's [Mass/volum results) [facility], ) e] in Serum or Plasma ID Date Data Source [id number] 10/15/2016 12:00:00 AM EDT [facility] ([facility], ) Name Value Range Interpretation Description Data Sup porting Code Source(s) Document(s ) Cholesterol 276 Above high normal [facility] (St [Mass/volume] in mg/dL Ez's Serum or Plasma [facility], ) Triglyceride 197 Above high normal [facility] (S t [Mass/volume] in mg/dL Ez's Serum or Plasma [facility], ) HDL Cholesterol 44 mg/dL Normal (applies [facility] ( St to non-numeric Ez's results) [facility], ) VLDL Cholesterol 39 mg/dL Normal (applies [facility] (St [place] to non-numeric Ez's results) [facility], ) LDL Cholesterol 193 Above high normal [facility] (St Calc mg/dL Ez's [facility], ) Comment: Normal (applies [facility] (St to non-numeric Ez's results) [facility], ) ID Date Data Source [id number] 10/15/2016 12:00:00 AM EDT [facility] ([facility], ) Name Value Range Interpretation Description Data Sup porting Code Source(s) Document(s ) WBC 6-10 Abnormal (applies [facility] (St to non-numeric Ez's results) Medical, ) RBC 0-2 Normal (applies to [facility] (St non-numeric Ez's results) [facility], PC) Mucus Threads Present Normal (applies to [facility] (St non-numeric Ez's results) Medical, PC) Epithelial 0-10 Normal (applies to [facility] (St Cells (non non-numeric Ez's renal) results) Medical, PC) Bacteria Few Normal (applies to [facility] (St [Presence] in non-numeric Ez's Prostatic results) Medical, PC) fluid by Light microscopy ID Date Data Source [id number] 10/15/2016 12:00:00 AM EDT [facility]) Name Value Range Interpretation Description Data Sup porting Code Source(s) Document(s ) Specific gravity 1.023 Normal (applies [facility] (St of Pericardial to non-numeric Ez's fluid by results) Medical, Refractometry PC) pH of Lower 5.5 Normal (applies [facility] (St respiratory to non-numeric Ez's specimen results) Medical, PC) Urine-Color Yellow Normal (applies [facility] (St to non-numeric Ez's results) Medical, PC) Appearance of Cloudy Abnormal [facility] (St Abdomen (applies to Ez's non-numeric Medical, results) PC) WBC Esterase Trace Abnormal [facility] (St (applies to Ez's non-numeric Medical, results) PC) Protein Negative Normal (applies [facility] (St [Mass/volume] in to non-numeric Ez's Lower results) Medical, respiratory PC) specimen Glucose Abnormal [facility] (St [Mass/volume] in (applies to Ez's Urine collected non-numeric Medical, for unspecified results) PC) duration Ketones Negative Normal (applies [facility] (St [Presence] in to non-numeric Ez's Blood by Tablet results) Medical, PC) Occult Blood Negative Normal (applies [facility] (St to non-numeric Ez's results) Medical, PC) Urobilinogen,Dominique 0.2 EU/dL Normal (applies [facility] (St i-Qn to non-numeric Ez's results) Medical, PC) Bilirubin Negative Normal (applies [facility] (St [Presence] in to non-numeric Ez's Peritoneal fluid results) Medical, PC) Nitrite, Urine Negative Normal (applies [facility] (S t to non-numeric Ez's results) Medical, PC) Microscopic See below: Normal (applies [facility] (St Examination to non-numeric Ez's results) Medical, PC) ID Date Data Source [id number] 10/15/2016 12:00:00 AM EDT [facility] ([facility], ) Name Value Range Interpretation Description Data Sup porting Code Source(s) Document(s ) Glucose, Serum 473 Above high [facility]GEN (St mg/dL normal [facility], ) Urea nitrogen 12 mg/dL Normal (applies [facility] (St [Mass/volume] in to non-numeric Ez's Serum or Plasma results) Medical, ) Creatinine, Serum 1.07 Above high [facility] (St mg/dL normal [facility], ) eGFR If Africn Am 66 Normal (applies [facility]GEN (St mL/min/1 to non-numeric [facility] 73 results) Medical, ) eGFR If NonAfricn 57 Below low normal MEDGE N (St Am mL/min/1 Ez's .73 Medical, ) BUN/Creatinine 11 Normal (applies [facility]GEN (S t Ratio to non-numeric Ez's results) Medical, ) Sodium 138 Normal (applies [facility] (St [Moles/volume] in mmol/L to non-numeric Ez's Serum or Plasma results) Medical, ) Chloride 99 Normal (applies [facility] (St [Moles/volume] in mmol/L to non-numeric Ez's Serum or Plasma results) Medical, ) Potassium, Serum 4.3 Normal (applies [facility] (St mmol/L to non-numeric Ez's results) Medical, ) Carbon dioxide, 21 Normal (applies [facility] ( St total mmol/L to non-numeric Ez's [Moles/volume] in results) Medical, Serum or Plasma PC) Calcium, Serum 9.3 Normal (applies [facility]GEN (S t mg/dL to non-numeric Ez's results) Medical, ) Protein 6.3 g/dL Normal (applies [facility]GEN (St [Mass/volume] in to non-numeric Ez's Serum or Plasma results) Medical, ) Albumin, Serum 3.7 g/dL Normal (applies [facility]GEN (S t to non-numeric Ez's results) Medical, ) Globulin, Total 2.6 g/dL Normal (applies [facility] ( St to non-numeric Ez's results) Medical, ) A/G Ratio 1.4 Normal (applies [facility] (St to non-numeric Ez's results) Medical, ) Bilirubin.total <0.2 Normal (applies [facility] ( St [Mass/volume] in to non-numeric Ez's Serum or Plasma results) [facility], ) Alkaline 123 IU/L Above high MEDGEN (St Phosphatase, S normal Ez's [facility], ) Aspartate 13 IU/L Normal (applies [facility]GEN (St aminotransferase to non-numeric Ez's [Enzymatic results) Medical, activity/volume] in ) Serum or Plasma Alanine 18 IU/L Normal (applies [facility] (St aminotransferase to non-numeric Ez's [Enzymatic results) Medical, activity/volume] in ) Serum or Plasma ID Date Data Source [id number] 10/15/2016 12:00:00 AM EDT [facility] ([facility], ) Name Value Range Interpretation Description Data Sup porting Code Source(s) Document(s ) Leukocytes 9.5 Normal (applies [facility] (St [#/volume] in x10E3/uL to non-numeric Ez's Blood by results) [facility], ) Automated count Erythrocytes 4.31 Normal (applies [facility]GEN (St [#/volume] in x10E6/uL to non-numeric Ez's Blood by results) [facility], ) Automated count Hemoglobin 12.2 Normal (applies [facility]GEN (St [Mass/volume] in g/dL to non-numeric Ez's Blood results) [facility], ) Hematocrit 36.9 % Normal (applies [facility] (St [Volume to non-numeric Ez's Fraction] of results) [facility], ) Blood by Automated count MCV 86 fL Normal (applies [facility] (St to non-numeric Ez's results) [facility], ) MCH 28.3 pg Normal (applies [facility] (St to non-numeric Ez's results) [facility], ) MCHC 33.1 Normal (applies [facility] (St g/dL to non-numeric Ez's results) [facility], ) RDW 13.3 % Normal (applies [facility] (St to non-numeric Ez's results) [facility], ) Platelets 371 Normal (applies [facility] (St [#/area] in x10E3/uL to non-numeric Ez's Blood by results) [facility], ) Microscopy high power field Neutrophils [#] 70 % Normal (applies [facility] ( St in Body fluid by to non-numeric Ez's Manual count results) [facility], ) Lymphs 21 % Normal (applies [facility] (St to non-numeric Ez's results) [facility], ) Monocytes 8 % Normal (applies [facility] (St [#/volume] in to non-numeric Ez's Cord blood results) [facility]) Basos 0 % Normal (applies MEDGEN (St to non-numeric Ez's results) [facility], ) Eos 1 % Normal (applies MEDGEN (St to non-numeric Ze's results) [facility]) Neutrophils 6.7 Normal (applies MEDGEN (St (Absolute) x10E3/uL to non-numeric Ez's results) [facility], ) Lymphs 2.0 Normal (applies [facility] (St (Absolute) x10E3/uL to non-numeric Ez's results) [facility], ) Monocytes(Absolu 0.7 Normal (applies MEDGEN (St te) x10E3/uL to non-numeric Ez's results) [facility], ) Eos (Absolute) 0.1 Normal (applies MEDGEN (S t x10E3/uL to non-numeric Ez's results) [facility], ) Baso (Absolute) 0.0 Normal (applies MED[facility] ( St x10E3/uL to non-numeric Ez's results) [facility], ) Immature 0 % Normal (applies [facility] (St Granulocytes to non-numeric Ez's results) [facility], ) Immature Grans 0.0 Normal (applies MEDGEN (S t (Abs) x10E3/uL to non-numeric Ez's results) [facility], ) ID Date Data Source [id number] 10/15/2016 12:00:00 AM EDT [facility] ([facility], ) Name Value Range Interpretation Code Description Data Sandie rce(s) Supporting Document(s ) ID Date Data Source [id number] 10/15/2016 12:00:00 AM EDT [facility] ([facility], ) Name Value Range Interpretation Code Description Data Sandie rce(s) Supporting Document(s ) PDF Image . Normal (applies to [facility] (St non-numeric results) Ez's [facility], PC) PDF Image . Normal (applies to [facility] (St non-numeric results) Ez's La [facility], PC) PDF Image . Normal (applies to [facility] (St non-numeric results) Ez's Me dical, PC) PDF Image . Normal (applies to [facility] (St non-numeric results) Ez's Me dical, PC) PDF Image . Normal (applies to [facility] (St non-numeric results) Ez's La [facility], PC) PDF Image . Normal (applies to [facility] (St non-numeric results) Ez's La [facility], PC) ID Date Data Source [id number] 10/15/2016 12:00:00 AM EDT [facility]) Name Value Range Interpretation Code Description Data Sandie rce(s) Supporting Document(s ) TSH 1.600 Normal (applies to [facility] (St uIU/mL non-numeric results) Ez's [facility], PC) ID Date Data Source [id number] 10/15/2016 12:00:00 AM EDT [facility] ([facility]) Name Value Range Interpretation Description Data Sup porting Code Source(s) Document(s ) Vitamin D, 22.4 Below low normal [facility] (St 25-Hydroxy ng/mL Ez's [facility], PC) Vitamin D, 17.3 Below low normal [facility] (St 25-Hydroxy ng/mL Ez's [facility], PC) Vitamin D, 29.6 Below low normal [facility] (St 25-Hydroxy ng/mL Ez's [facility], PC) ID Date Data Source [id number] 10/15/2016 12:00:00 AM EDT [facility] ([facility]) Name Value Range Interpretation Description Data Sup porting Code Source(s) Document(s ) Hemoglobin 8.5 % Above high normal [facility] (St A1c/Hemoglobin Ez's .total in Medical, PC) Blood Hemoglobin 8.6 % Above high normal [facility] (St A1c/Hemoglobin Ez's .total in Medical, PC) Blood Hemoglobin 12.4 % Above high normal [facility] (St A1c/Hemoglobin Ez's .total in Medical, PC) Blood Hemoglobin 15.0 % Above high normal [facility] (St A1c/Hemoglobin Ez's .total in Medical, PC) Blood Hemoglobin 12.6 % Above high normal [facility] (St A1c/Hemoglobin Ez's .total in Medical, PC) Blood Hemoglobin 7.4 % Above high normal [facility] (St A1c/Hemoglobin Ez's .total in Medical, ) Blood ID Date Data Source [id number] 10/15/2016 12:00:00 AM EDT [facility] ([facility], ) Name Value Range Interpretation Description Data Sup porting Code Source(s) Document(s ) Vitamin B12 798 pg/mL Normal (applies to MEDGEN (S t non-numeric Ez's results) [facility], ) Vitamin B12 883 pg/mL Normal (applies to [facility]GEN (S t non-numeric Ez's results) [facility]) Folate 9.0 ng/mL Normal (applies to MEDGEN (St (Folic non-numeric Ez's Acid), Serum results) [facility]) Vitamin B12 1035 Normal (applies to MEDGEN (S t pg/mL non-numeric Ez's results) [facility]) Folate 13.3 Normal (applies to [facility]GEN (St (Folic ng/mL non-numeric Ez's Acid), Serum results) [facility]) Folate 6.6 ng/mL Normal (applies to MEDGEN (St (Folic non-numeric Ez's Acid), Serum results) [facility]) ID Date Data Source [id number] 10/15/2016 12:00:00 AM EDT [facility] ([facility], ) Name Value Range Interpretation Description Data Sup porting Code Source(s) Document(s ) Bilirubin.c 0.11 mg/dL Normal (applies to [facility] ( St onjugated non-numeric Ez's [Mass/volum results) [facility]) e] in Serum or Plasma Bilirubin.c 0.08 mg/dL Normal (applies to [facility]GEN ( St onjugated non-numeric Ez's [Mass/volum results) [facility]) e] in Serum or Plasma Bilirubin.c 0.05 mg/dL Normal (applies to MEDGEN ( St onjugated non-numeric Ez's [Mass/volum results) [facility]) e] in Serum or Plasma Bilirubin.c 0.05 mg/dL Normal (applies to MEDGEN ( St onjugated non-numeric Ez's [Mass/volum results) [facility]) e] in Serum or Plasma ID Date Data Source [id number] 10/15/2016 12:00:00 AM EDT [facility] ([facility], ) Name Value Range Interpretation Description Data Sup porting Code Source(s) Document(s ) Triglyceride 93 mg/dL Normal (applies [facility] (St [Mass/volume] in to non-numeric Ez's Serum or Plasma results) Medical, ) Cholesterol 221 Above high normal [facility] (St [Mass/volume] in mg/dL Ez's Serum or Plasma Medical, ) HDL Cholesterol 52 mg/dL Normal (applies MEDGEN ( St to non-numeric Ez's results) Medical, ) VLDL Cholesterol 19 mg/dL Normal (applies [facility] (St [place] to non-numeric Ez's results) Medical, ) LDL Cholesterol 150 Above high normal [facility] (St Calc mg/dL Ez's [facility], ) Cholesterol 210 Above high normal [facility] (St [Mass/volume] in mg/dL Ez's Serum or Plasma [facility], ) Triglyceride 204 Above high normal MEDGEN (S t [Mass/volume] in mg/dL Ez's Serum or Plasma [facility], ) HDL Cholesterol 44 mg/dL Normal (applies MEDGEN ( St to non-numeric Ez's results) Medical, ) VLDL Cholesterol 41 mg/dL Above high normal MEDGE N ([facility] [place] Ez's [facility], ) LDL Cholesterol 125 Above high normal [facility] (St Calc mg/dL Ez's [facility], ) Cholesterol 207 Above high normal [facility] (St [Mass/volume] in mg/dL Ez's Serum or Plasma [facility], ) HDL Cholesterol 49 mg/dL Normal (applies MEDGEN ( St to non-numeric Ez's results) Medical, ) Triglyceride 136 Normal (applies MEDGEN (St [Mass/volume] in mg/dL to non-numeric Ez's Serum or Plasma results) Medical, ) LDL Cholesterol 131 Above high normal MEDGEN (St Calc mg/dL Ez's [facility], ) VLDL Cholesterol 27 mg/dL Normal (applies [facility] (St [place] to non-numeric Ez's results) Medical, ) Cholesterol 276 Above high normal [facility] (St [Mass/volume] in mg/dL Ez's Serum or Plasma Medical, ) Triglyceride 197 Above high normal [facility]GEN (S t [Mass/volume] in mg/dL Ez's Serum or Plasma [facility], ) HDL Cholesterol 44 mg/dL Normal (applies MEDGEN ( St to non-numeric Ez's results) Medical, ) VLDL Cholesterol 39 mg/dL Normal (applies [facility] (St [place] to non-numeric Ez's results) Medical, PC) Cholesterol 176 Normal (applies [facility]GEN (St [Mass/volume] in mg/dL to non-numeric Ez's Serum or Plasma results) Medical, PC) LDL Cholesterol 193 Above high normal [facility] (St Calc mg/dL [facility], PC) HDL Cholesterol 55 mg/dL Normal (applies MEDGEN ( St to non-numeric Ez's results) Medical, PC) Triglyceride 160 Above high normal MEDGEN (S t [Mass/volume] in mg/dL Ez's Serum or Plasma Medical, ) VLDL Cholesterol 32 mg/dL Normal (applies [facility] (St [place] to non-numeric Ez's results) Medical, PC) LDL Cholesterol 89 mg/dL Normal (applies MEDGEN ( St Calc to non-numeric Ez's results) Medical, ) ID Date Data Source [id number] 10/15/2016 12:00:00 AM EDT [facility] ([facility], ) Name Value Range Interpretation Description Data Sup porting Code Source(s) Document(s ) WBC >30 Abnormal (applies MED[facility] (St to non-numeric Ez's results) Medical, PC) RBC 0-2 Normal (applies to [facility] (St non-numeric Ez's results) Medical, PC) Epithelial 0-10 Normal (applies to MEDGEN (St Cells (non non-numeric Ez's renal) results) Medical, PC) Mucus Threads Present Normal (applies to MEDGEN (St non-numeric Ez's results) Medical, PC) Bacteria Many Abnormal (applies MEDGEN (St [Presence] in to non-numeric Ez's Prostatic results) Medical, ) fluid by Light microscopy RBC 0-2 Normal (applies to MEDGEN (St non-numeric Ez's results) Medical, PC) WBC 6-10 Abnormal (applies MEDGEN (St to non-numeric Ez's results) Medical, PC) Epithelial 0-10 Normal (applies to MEDGEN (St Cells (non non-numeric Ez's renal) results) Medical, ) Mucus Threads Present Normal (applies to MEDGEN (St non-numeric Ez's results) Medical, PC) Bacteria Few Normal (applies to MEDGEN (St [Presence] in non-numeric Ez's Prostatic results) Medical, ) fluid by Light microscopy ID Date Data Source [id number] 10/15/2016 12:00:00 AM EDT [facility] ([facility]) Name Value Range Interpretation Description Data Sup porting Code Source(s) Document(s ) Specific gravity 1.020 Normal (applies MED[facility] (St of Pericardial to non-numeric Ez's fluid by results) Medical, Refractometry PC) pH of Lower 5.0 Normal (applies MED[facility] (St respiratory to non-numeric Ez's specimen results) Medical, PC) Urine-Color Yellow Normal (applies [facility] (St to non-numeric Ez's results) Medical, PC) Appearance of Cloudy Abnormal [facility]GEN (St Abdomen (applies to Ez's non-numeric Medical, results) PC) Protein Trace Normal (applies [facility] (St [Mass/volume] in to non-numeric Ez's Lower results) Medical, respiratory PC) specimen WBC Esterase Abnormal [facility] (St (applies to Ez's non-numeric Medical, results) PC) Ketones Negative Normal (applies [facility] (St [Presence] in to non-numeric Ez's Blood by Tablet results) Medical, PC) Glucose Abnormal [facility] (St [Mass/volume] in (applies to Ez's Urine collected non-numeric Medical, for unspecified results) PC) duration Occult Blood Trace Abnormal [facility] (St (applies to Ez's non-numeric Medical, results) PC) Bilirubin Negative Normal (applies [facility] (St [Presence] in to non-numeric Ez's Peritoneal fluid results) Medical, PC) Urobilinogen,Dominique 0.2 EU/dL Normal (applies [facility] (St i-Qn to non-numeric Ez's results) Medical, PC) Nitrite, Urine Negative Normal (applies [facility]GEN (S t to non-numeric Ez's results) Medical, PC) Microscopic See below: Normal (applies [facility] (St Examination to non-numeric Ez's results) Medical, PC) Specific gravity 1.023 Normal (applies [facility] (St of Pericardial to non-numeric Ez's fluid by results) Medical, Refractometry PC) pH of Lower 5.5 Normal (applies [facility]GEN (St respiratory to non-numeric Ez's specimen results) Medical, PC) Urine-Color Yellow Normal (applies [facility] (St to non-numeric Ez's results) Medical, PC) Appearance of Cloudy Abnormal [facility] (St Abdomen (applies to Ez's non-numeric Medical, results) PC) Protein Negative Normal (applies [facility] (St [Mass/volume] in to non-numeric Ez's Lower results) Medical, respiratory PC) specimen WBC Esterase Trace Abnormal [facility] (St (applies to Ez's non-numeric Medical, results) PC) Ketones Negative Normal (applies [facility] (St [Presence] in to non-numeric Ez's Blood by Tablet results) Medical, ) Glucose Abnormal [facility] (St [Mass/volume] in (applies to Ez's Urine collected non-[facility] Medical, for unspecified results) ) duration Bilirubin Negative Normal (applies [facility] (St [Presence] in to non-numeric Ez's Peritoneal fluid results) Medical, ) Occult Blood Negative Normal (applies [facility] (St to non-numeric Ez's results) Medical, ) Urobilinogen,Dominique 0.2 EU/dL Normal (applies [facility] (St i-Qn to non-numeric Ez's results) Medical, PC) Microscopic See below: Normal (applies [facility] (St Examination to non-numeric Ez's results) Medical, ) Nitrite, Urine Negative Normal (applies [facility]GEN (S t to non-numeric Ez's results) Medical, ) ID Date Data Source [id number] 10/15/2016 12:00:00 AM EDT [facility] ([facility], ) Name Value Range Interpretation Description Data Sup porting Code Source(s) Document(s ) Glucose, Serum 116 Above high MEDGEN (St mg/dL normal [facility] Medical, ) Creatinine, Serum 0.85 Normal (applies [facility] (St mg/dL to non-numeric Ez's results) Medical, ) Urea nitrogen 16 mg/dL Normal (applies [facility] (St [Mass/volume] in to non-numeric Ez's Serum or Plasma results) Medical, ) eGFR If Africn Am 87 Normal (applies [facility] (St mL/min/1 to non-numeric Ez's .73 results) Medical, ) eGFR If NonAfricn 76 Normal (applies [facility] (St Am mL/min/1 to non-numeric Ez's .73 results) Medical, ) Sodium 141 Normal (applies [facility] (St [Moles/volume] in mmol/L to non-numeric Ez's Serum or Plasma results) Medical, ) BUN/Creatinine 19 Normal (applies MEDGEN (S t Ratio to non-numeric Ez's results) Medical, ) Potassium, Serum 4.3 Normal (applies [facility] (St mmol/L to non-numeric Ez's results) Medical, ) Chloride 102 Normal (applies [facility]GEN (St [Moles/volume] in mmol/L to non-numeric Ez's Serum or Plasma results) Medical, ) Carbon dioxide, 25 Normal (applies MEDGEN ( St total mmol/L to non-numeric Ez's [Moles/volume] in results) Medical, Serum or Plasma PC) Protein 6.8 g/dL Normal (applies [facility] (St [Mass/volume] in to non-numeric Ez's Serum or Plasma results) Medical, ) Calcium, Serum 10.0 Normal (applies MEDGEN (S t mg/dL to non-numeric Ez's results) [facility], ) Albumin, Serum 4.1 g/dL Normal (applies [facility]GEN (S t to non-numeric Ez's results) Medical, ) Globulin, Total 2.7 g/dL Normal (applies [facility] ( St to non-numeric Ez's results) Medical, ) A/G Ratio 1.5 Normal (applies [facility] (St to non-numeric Ez's results) Medical, ) Bilirubin.total 0.4 Normal (applies [facility] ( St [Mass/volume] in mg/dL to non-numeric Ez's Serum or Plasma results) [facility], ) Aspartate 17 IU/L Normal (applies [facility] (St aminotransferase to non-numeric Ez's [Enzymatic results) Medical, activity/volume] in PC) Serum or Plasma Alkaline 70 IU/L Normal (applies [facility] (St Phosphatase, S to non-numeric Ez's results) Medical, ) Alanine 14 IU/L Normal (applies [facility]GEN (St aminotransferase to non-numeric Ez's [Enzymatic results) Medical, activity/volume] in PC) Serum or Plasma Glucose 361 Above high [facility]GEN (St [Mass/volume] in mg/dL normal Ez's Urine collected for Medical, unspecified PC) duration Urea nitrogen 33 mg/dL Above high [facility]GEN (St [Mass/volume] in normal Ez's Serum or Plasma Medical, ) Creatinine 1.01 Above high [facility] (St [Interpretation] in mg/dL normal Ez's Urine [facility], ) eGFR If NonAfricn 61 Normal (applies [facility] (St Am mL/min/1 to non-numeric Ez's .73 results) Medical, PC) eGFR If Africn Am 70 Normal (applies [facility] (St mL/min/1 to non-numeric Ez's .73 results) Medical, PC) BUN/Creatinine 33 Above high MEDGEN (St Ratio normal Ez's Medical, PC) Potassium 5.1 Normal (applies [facility] (St [Mass/volume] in mmol/L to non-numeric Ez's Blood results) Medical, PC) Sodium 138 Normal (applies [facility] (St [Moles/volume] in mmol/L to non-numeric Ez's Serum or Plasma results) Medical, PC) Carbon dioxide, 23 Normal (applies [facility] ( St total mmol/L to non-numeric Ez's [Moles/volume] in results) Medical, Serum or Plasma PC) Chloride 99 Normal (applies [facility] (St [Moles/volume] in mmol/L to non-numeric Ez's Serum or Plasma results) Medical, PC) Protein 6.8 g/dL Normal (applies [facility] (St [Mass/volume] in to non-numeric Ez's Serum or Plasma results) Medical, PC) Calcium 10.9 Above high [facility] (St [Moles/volume] in mg/dL normal Ez's Urine collected for Medical, unspecified PC) duration Globulin, Total 2.7 g/dL Normal (applies [facility]GEN ( St to non-numeric Ez's results) Medical, PC) Microalbumin 4.1 g/dL Normal (applies [facility] (St [Mass/time] in to non-numeric Ez's Urine collected for results) Medical, unspecified PC) duration A/G Ratio 1.5 Normal (applies [facility] (St to non-numeric Ez's results) Medical, PC) Bilirubin.total <0.2 Normal (applies [facility] ( St [Mass/volume] in to non-numeric Ez's Serum or Plasma results) Medical, PC) Alkaline 70 IU/L Normal (applies [facility] (St phosphatase to non-numeric Ez's [Enzymatic results) Medical, activity/volume] in PC) Serum, Plasma or Blood Aspartate 14 IU/L Normal (applies [facility]GEN (St aminotransferase to non-numeric Ez's [Enzymatic results) Medical, activity/volume] in PC) Serum or Plasma Alanine 17 IU/L Normal (applies [facility]GEN (St aminotransferase to non-numeric Ez's [Enzymatic results) Medical, activity/volume] in PC) Serum or Plasma Glucose 292 Above high MEDGEN (St [Mass/volume] in mg/dL normal Ez's Urine collected for Medical, unspecified PC) duration Urea nitrogen 30 mg/dL Above high MEDGEN (St [Mass/volume] in normal Ez's Serum or Plasma Medical, ) Creatinine 1.26 Above high [facility]GEN (St [Interpretation] in mg/dL normal Ez's Urine Medical, ) eGFR If NonAfricn 46 Below low normal MEDGE N (St Am mL/min/[address] [facility] [address] [place] [address], ) eGFR If Africn Am 54 Below low normal MEDGE N (St mL/min/1 [facility] .73 [facility], ) BUN/Creatinine 24 Normal (applies MEDGEN (S t Ratio to non-numeric Ez's results) Medical, ) Sodium 142 Normal (applies [facility]GEN (St [Moles/volume] in mmol/L to non-numeric Ez's Serum or Plasma results) Medical, ) Potassium 4.7 Normal (applies [facility]GEN (St [Mass/volume] in mmol/L to non-numeric Ez's Blood results) Medical, ) Chloride 104 Normal (applies [facility] (St [Moles/volume] in mmol/L to non-numeric Ez's Serum or Plasma results) Medical, ) Calcium 9.7 Normal (applies [facility] (St [Moles/volume] in mg/dL to non-numeric Ez's Urine collected for results) Medical, unspecified PC) duration Carbon dioxide, 22 Normal (applies [facility]GEN ( St total mmol/L to non-numeric Ez's [Moles/volume] in results) Medical, Serum or Plasma PC) Microalbumin 3.9 g/dL Normal (applies [facility] (St [Mass/time] in to non-numeric Ez's Urine collected for results) Medical, unspecified PC) duration Protein 6.4 g/dL Normal (applies [facility] (St [Mass/volume] in to non-numeric Ez's Serum or Plasma results) Medical, ) Globulin, Total 2.5 g/dL Normal (applies [facility] ( St to non-numeric Ez's results) Medical, ) A/G Ratio 1.6 Normal (applies [facility]GEN (St to non-numeric Ez's results) Medical, ) Alkaline 70 IU/L Normal (applies [facility]GEN (St phosphatase to non-numeric Ez's [Enzymatic results) Medical, activity/volume] in ) Serum, Plasma or Blood Bilirubin.total <0.2 Normal (applies [facility] ( St [Mass/volume] in to non-numeric Ez's Serum or Plasma results) Medical, ) Aspartate 17 IU/L Normal (applies [facility] (St aminotransferase to non-numeric Ez's [Enzymatic results) Medical, activity/volume] in ) Serum or Plasma Alanine 26 IU/L Normal (applies [facility] (St aminotransferase to non-numeric Ez's [Enzymatic results) Medical, activity/volume] in ) Serum or Plasma Urea nitrogen 12 mg/dL Normal (applies [facility] (St [Mass/volume] in to non-numeric Ez's Serum or Plasma results) Medical, ) Glucose, Serum 473 Above high [facility]GEN (St mg/dL normal [facility], ) Creatinine, Serum 1.07 Above high [facility]GEN (St mg/dL normal [facility], ) eGFR If Africn Am 66 Normal (applies [facility]GEN (St mL/min/1 to non-numeric Ez's .73 results) [facility], ) eGFR If NonAfricn 57 Below low normal MEDGE N (St Am mL/min/1 Ez's .73 [facility], ) Sodium 138 Normal (applies [facility]GEN (St [Moles/volume] in mmol/L to non-numeric Ez's Serum or Plasma results) [facility], ) BUN/Creatinine 11 Normal (applies MEDGEN (S t Ratio to non-numeric Ez's results) [facility], ) Chloride 99 Normal (applies [facility] (St [Moles/volume] in mmol/L to non-numeric Ez's Serum or Plasma results) Medical, ) Potassium, Serum 4.3 Normal (applies [facility] (St mmol/L to non-numeric Ez's results) [facility], ) Carbon dioxide, 21 Normal (applies [facility]GEN ( St total mmol/L to non-numeric Ez's [Moles/volume] in results) Medical, Serum or Plasma PC) Calcium, Serum 9.3 Normal (applies [facility]GEN (S t mg/dL to non-numeric Ez's results) [facility], ) Protein 6.3 g/dL Normal (applies [facility] (St [Mass/volume] in to non-numeric Ez's Serum or Plasma results) [facility], ) Globulin, Total 2.6 g/dL Normal (applies [facility] ( St to non-numeric Ez's results) [facility], ) Albumin, Serum 3.7 g/dL Normal (applies [facility]GEN (S t to non-numeric Ez's results) [facility], ) Bilirubin.total <0.2 Normal (applies [facility] ( St [Mass/volume] in to non-numeric Ez's Serum or Plasma results) [facility], ) A/G Ratio 1.4 Normal (applies [facility] (St to non-numeric Ez's results) [facility], ) Aspartate 13 IU/L Normal (applies [facility]GEN (St aminotransferase to non-numeric Ez's [Enzymatic results) Medical, activity/volume] in ) Serum or Plasma Alkaline 123 IU/L Above high MEDGEN (St Phosphatase, S normal [facility], ) Glucose 108 Above high MEDGEN (St [Mass/volume] in mg/dL normal Ez's Urine collected for Medical, unspecified PC) duration Alanine 18 IU/L Normal (applies [facility]GEN (St aminotransferase to non-numeric Ez's [Enzymatic results) Medical, activity/volume] in ) Serum or Plasma Creatinine 1.09 Above high MEDGEN (St [Interpretation] in mg/dL normal Ez's Urine [facility], ) Urea nitrogen 35 mg/dL Above high MEDGEN (St [Mass/volume] in normal Ez's Serum or Plasma [facility], ) eGFR If NonAfricn 56 Below low normal MEDGE N (St Am mL/min/1 Ez's .73 [facility], ) eGFR If Africn Am 64 Normal (applies MEDGEN (St mL/min/1 to non-numeric Ez's .73 results) [facility], ) BUN/Creatinine 32 Above high MEDGEN (St Ratio normal Ez's [facility], ) Sodium 143 Normal (applies [facility]GEN (St [Moles/volume] in mmol/L to non-numeric Ez's Serum or Plasma results) [facility], ) Potassium 4.9 Normal (applies [facility]GEN (St [Mass/volume] in mmol/L to non-numeric Ez's Blood results) [facility], ) Chloride 109 Above high [facility]GEN (St [Moles/volume] in mmol/L normal Ez's Serum or Plasma Medical, ) Carbon dioxide, 24 Normal (applies [facility]GEN ( St total mmol/L to non-numeric Ez's [Moles/volume] in results) Medical, Serum or Plasma PC) Calcium 10.2 Normal (applies [facility]GEN (St [Moles/volume] in mg/dL to non-numeric Ez's Urine collected for results) Medical, unspecified PC) duration Protein 7.0 g/dL Normal (applies [facility]GEN (St [Mass/volume] in to non-numeric Ez's Serum or Plasma results) Medical, ) Globulin, Total 3.0 g/dL Normal (applies [facility]GEN ( St to non-numeric Ez's results) Medical, ) Microalbumin 4.0 g/dL Normal (applies [facility]GEN (St [Mass/time] in to non-numeric Ez's Urine collected for results) [facility], unspecified ) duration Bilirubin.total <0.2 Normal (applies MEDGEN ( St [Mass/volume] in to non-numeric Ez's Serum or Plasma results) Medical, ) A/G Ratio 1.3 Normal (applies [facility]GEN (St to non-numeric Ez's results) Medical, ) Aspartate 33 IU/L Normal (applies [facility]GEN (St aminotransferase to non-numeric Ez's [Enzymatic results) Medical, activity/volume] in PC) Serum or Plasma Alkaline 124 IU/L Above high MEDGEN (St phosphatase normal Ez's [Enzymatic Medical, activity/volume] in PC) Serum, Plasma or Blood Alanine 64 IU/L Above high [facility]GEN (St aminotransferase normal Ez's [Enzymatic Medical, activity/volume] in PC) Serum or Plasma ID Date Data Source [id number] 10/15/2016 12:00:00 AM EDT [facility] ([facility], ) Name Value Range Interpretation Description Data Sup porting Code Source(s) Document(s ) Leukocytes 10.7 Normal (applies [facility]GEN (St [#/volume] in x10E3/uL to non-numeric Ez's Blood by results) Medical, ) Automated count Hemoglobin 11.8 Normal (applies [facility] (St [Mass/volume] in g/dL to non-numeric Ez's Blood results) Medical, ) Erythrocytes 4.28 Normal (applies [facility] (St [#/volume] in x10E6/uL to non-numeric Ez's Blood by results) [facility], ) Automated count Hematocrit 35.6 % Normal (applies [facility]GEN (St [Volume to non-numeric Ez's Fraction] of results) [facility], ) Blood by Automated count MCV 83 fL Normal (applies [facility] (St to non-numeric Ez's results) [facility], ) MCH 27.6 pg Normal (applies [facility]GEN (St to non-numeric Ez's results) [facility], ) MCHC 33.1 Normal (applies [facility] (St g/dL to non-numeric Ez's results) [facility], ) Platelets 282 Normal (applies [facility] (St [#/area] in x10E3/uL to non-numeric Ez's Blood by results) [facility], ) Microscopy high power field RDW 13.5 % Normal (applies [facility] (St to non-numeric Ez's results) [facility], ) Neutrophils [#] 71 % Normal (applies [facility]GEN ( St in Body fluid by to non-numeric Ez's Manual count results) [facility], ) Monocytes 6 % Normal (applies [facility]GEN (St [#/volume] in to non-numeric Ez's Cord blood results) [facility], ) Lymphs 20 % Normal (applies [facility]GEN (St to non-numeric Ez's results) [facility], ) Basos 1 % Normal (applies [facility]GEN (St to non-numeric Ez's results) [facility], ) Eos 2 % Normal (applies [facility]GEN (St to non-numeric Ez's results) [facility], ) Lymphs 2.1 Normal (applies [facility]GEN (St (Absolute) x10E3/uL to non-numeric Ez's results) [facility], ) Neutrophils 7.7 Above high normal [facility] (St (Absolute) x10E3/uL Ez's [facility], ) Monocytes(Absolu 0.7 Normal (applies MEDGEN (St te) x10E3/uL to non-numeric Ez's results) [facility], ) Eos (Absolute) 0.2 Normal (applies MEDGEN (S t x10E3/uL to non-numeric Ez's results) [facility], ) Baso (Absolute) 0.1 Normal (applies [facility] ( St x10E3/uL to non-numeric Ez's results) [facility], ) Immature 0 % Normal (applies [facility]GEN (St Granulocytes to non-numeric Ez's results) [facility], ) Leukocytes 9.5 Normal (applies [facility] (St [#/volume] in x10E3/uL to non-numeric Ez's Blood by results) [facility], ) Automated count Immature Grans 0.0 Normal (applies [facility]GEN (S t (Abs) x10E3/uL to non-numeric Ez's results) [facility], ) Hemoglobin 12.2 Normal (applies [facility] (St [Mass/volume] in g/dL to non-numeric Ez's Blood results) [facility], ) Erythrocytes 4.31 Normal (applies [facility]GEN (St [#/volume] in x10E6/uL to non-numeric Ez's Blood by results) [facility], ) Automated count Hematocrit 36.9 % Normal (applies [facility] (St [Volume to non-numeric Ez's Fraction] of results) [facility], ) Blood by Automated count MCV 86 fL Normal (applies [facility]GEN (St to non-numeric Ez's results) [facility], ) MCH 28.3 pg Normal (applies [facility]GEN (St to non-numeric Ez's results) [facility], ) RDW 13.3 % Normal (applies MEDGEN (St to non-numeric Ez's results) [facility], ) MCHC 33.1 Normal (applies [facility]GEN (St g/dL to non-numeric Ez's results) [facility], ) Neutrophils [#] 70 % Normal (applies [facility]GEN ( St in Body fluid by to non-numeric Ez's Manual count results) [facility], ) Platelets 371 Normal (applies [facility] (St [#/area] in x10E3/uL to non-numeric Ez's Blood by results) [facility], ) Microscopy high power field Lymphs 21 % Normal (applies [facility]GEN (St to non-numeric Ez's results) [facility], ) Monocytes 8 % Normal (applies [facility]GEN (St [#/volume] in to non-numeric Ez's Cord blood results) [facility], ) Basos 0 % Normal (applies [facility]GEN (St to non-numeric Ez's results) [facility], ) Eos 1 % Normal (applies [facility]GEN (St to non-numeric Ez's results) [facility], ) Neutrophils 6.7 Normal (applies [facility]GEN (St (Absolute) x10E3/uL to non-numeric Ez's results) Medical, PC) Lymphs 2.0 Normal (applies [facility] (St (Absolute) x10E3/uL to non-numeric Ez's results) Medical, PC) Eos (Absolute) 0.1 Normal (applies [facility]GEN (S t x10E3/uL to non-numeric Ez's results) Medical, PC) Monocytes(Absolu 0.7 Normal (applies [facility]GEN (St te) x10E3/uL to non-numeric Ez's results) Medical, PC) Baso (Absolute) 0.0 Normal (applies [facility]GEN ( St x10E3/uL to non-numeric Ez's results) Medical, PC) Immature 0 % Normal (applies [facility] (St Granulocytes to non-numeric Ez's results) Medical, PC) Immature Grans 0.0 Normal (applies [facility]GEN (S t (Abs) x10E3/uL to non-numeric Ez's results) Medical, PC) Procedure Social History Code Duration Value Status Description Data Source(s ) Smoking 11/17/2019 Born in [facility] Born in [facility] (St 12:00:00 AM EDT [place] moved to [facility] ~ 30+ yrs ago, ~ 30+ yrs ago, PC) Denies past or Denies past or current tobacco current tobacco smoking use smoking use Denies Denies drinking drinking EtoH EtoH Denies Denies illicit illicit drug use drug use Previously worked 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 Smoking 11/17/2019 Unknown if ever completed Unknown if ever MED[facility] EN (St 12:00:00 AM EDT smoked smoked [facility], PC) Smoking 11/16/2019 Born in [facility] completed Born in [facility] (St 12:00:00 AM EDT [place] & moved to [place] & moved to [facility] ~ 30+ yrs ago, ~ 30+ yrs ago, PC) Denies past or Denies past or current tobacco current tobacco smoking use smoking use Denies Denies drinking drinking EtoH EtoH Denies Denies illicit illicit drug use drug use Previously worked 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 Smoking 11/16/2019 Unknown if ever completed Unknown if ever MEDG EN (St 12:00:00 AM EDT smoked smoked [facility], PC) Smoking 11/09/2019 born in [facility] completed born in [place] [facility] (St 12:00:00 AM EDT [place] & moved to [place] & moved to [facility] ~ 30+ yrs ago, ~ 30+ yrs ago, PC) denies past or denies past or current tobacco current tobacco smoking use smoking use Denies Denies drinking drinking EtoH EtoH Denies Denies illicit illicit drug use drug use previously worked 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 Smoking 11/09/2019 Unknown if ever completed Unknown if ever MEDG EN (St 12:00:00 AM EDT smoked smoked [facility] Me dical, PC) Smoking 09/21/2019 born in [place] completed born in [facility] (St 12:00:00 AM EDT [place] & moved to [place] & moved to [facility] ~ 30+ yrs ago, ~ 30+ yrs ago, PC) denies past or denies past or current tobacco current tobacco smoking use smoking use Denies Denies drinking drinking EtoH EtoH Denies Denies illicit illicit drug use drug use previously worked 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 Smoking 09/21/2019 Unknown if ever completed Unknown if ever MEDG EN (St 12:00:00 AM EDT smoked smoked [facility] Me [facility], PC) Smoking 09/14/2019 born in [place] completed born in [facility] (St 12:00:00 AM EDT [place] & moved to [place] & moved to [facility] ~ 30+ yrs ago, ~ 30+ yrs ago, PC) denies past or denies past or current tobacco current tobacco smoking use smoking use Denies Denies drinking drinking EtoH EtoH Denies Denies illicit illicit drug use drug use previously 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) Inhaled oxygen 99 % 99 % [facility] ([facility], ) Body mass index 24.2 kg/m2 24.2 kg/m2 MEDGEN (S t (BMI) [Ratio] [facility], ) Diastolic blood 70 mm[Hg] 70 mm[Hg] MEDGEN (S t pressure [facility] , ) Systolic blood 132 mm[Hg] 132 mm[Hg] MEDGEN ([facility] , ) Body weight 150 lb 150 lb [facility] ([facility]) Body height 66 in 66 in [facility] ([facility]) Heart rate 93 /min 93 /min [facility] ([facility]) Inhaled oxygen 99 % 99 % [facility] ([facility], ) Body mass index 24.2 kg/m2 24.2 kg/m2 MEDGEN (S t (BMI) [Ratio] [facility], ) Diastolic blood 70 mm[Hg] 70 mm[Hg] MEDGEN (S t pressure [facility]) Systolic blood 132 mm[Hg] 132 mm[Hg] MEDGEN ([facility]) Body weight 150 lb 150 lb [facility] ([facility]) Body height 66 in 66 in [facility] ([facility]) Heart rate 72 /min 72 /min [facility] ([facility]) Respiratory rate 14 /min 14 /min [facility] ( [facility]) Diastolic blood 60 mm[Hg] 60 mm[Hg] MEDGEN (S t pressure [facility]) Systolic blood 112 mm[Hg] 112 mm[Hg] MED[facility] ([facility]) Body weight 144 lb 144 lb MED[facility] ([facility]) Heart rate 72 /min 72 /min [facility] ([facility]) Respiratory rate 14 /min 14 /min [facility] ( [facility]) Diastolic blood 60 mm[Hg] 60 mm[Hg] MEDGEN (S t pressure [facility]) Systolic blood 112 mm[Hg] 112 mm[Hg] MEDGEN ([facility]) Body weight 144 lb 144 lb MEDGEN ([facility]) Heart rate 72 /min 72 /min MEDGEN ([facility] , ) Respiratory rate 14 /min 14 /min MEDGEN ( [facility] , ) Diastolic blood 60 mm[Hg] 60 mm[Hg] MEDGEN (S t pressure [facility] , ) Systolic blood 112 mm[Hg] 112 mm[Hg] MEDGEN ([facility] , ) Body weight 144 lb 144 lb MEDGEN ([facility] , ) Heart rate 84 /min 84 /min MEDGEN ([facility] , ) Inhaled oxygen 96 % 96 % MEDGEN ([facility], ) Diastolic blood 70 mm[Hg] 70 mm[Hg] MEDGEN (S t pressure [facility] , ) Systolic blood 110 mm[Hg] 110 mm[Hg] MEDGEN ([facility] , ) Body weight 146 lb 146 lb MEDGEN ([facility] , ) Heart rate 84 /min 84 /min MEDGEN ([facility] , ) Inhaled oxygen 96 % 96 % MEDGEN ([facility], ) Diastolic blood 70 mm[Hg] 70 mm[Hg] MEDGEN (S t pressure [facility] , ) Systolic blood 110 mm[Hg] 110 mm[Hg] MEDGEN ([facility] , ) Body weight 146 lb 146 lb MEDGEN ([facility] , ) Heart rate 84 /min 84 /min MEDGEN ([facility] , ) Inhaled oxygen 96 % 96 % MEDGEN ([facility], ) Diastolic blood 70 mm[Hg] 70 mm[Hg] MEDGEN (S t pressure [facility] , ) Systolic blood 110 mm[Hg] 110 mm[Hg] MEDGEN ([facility] , ) Body weight 146 lb 146 lb MEDGEN ([facility] , ) Heart rate 84 /min 84 /min MEDGEN ([facility] , ) Inhaled oxygen 96 % 96 % MEDGEN ([facility], ) Diastolic blood 70 mm[Hg] 70 mm[Hg] MEDGEN (S t pressure [facility] , ) Systolic blood 110 mm[Hg] 110 mm[Hg] MEDGEN ([facility]) Body weight 146 lb 146 lb MEDGEN ([facility]) Heart rate 84 /min 84 /min MEDGEN ([facility]) Inhaled oxygen 96 % 96 % MEDGEN ([facility], ) Diastolic blood 70 mm[Hg] 70 mm[Hg] MEDGEN (S t [facility]) Systolic blood 110 mm[Hg] 110 mm[Hg] MEDGEN ([facility]) Body weight 146 lb 146 lb MEDGEN ([facility]) Heart rate 87 /min 87 /min MEDGEN ([facility]) Inhaled oxygen 98 % 98 % MEDGEN ([facility], ) Body mass index 23.1 kg/m2 23.1 kg/m2 MEDGEN (S t (BMI) [Ratio] [facility], ) Diastolic blood 82 mm[Hg] 82 mm[Hg] MEDGEN (S [facility]) Systolic blood 130 mm[Hg] 130 mm[Hg] MEDGEN ([facility]) Body weight 143 lb 143 lb MEDGEN ([facility]) Body height 66 in 66 in MEDGEN ([facility]) Heart rate 87 /min 87 /min MEDGEN ([facility]) Inhaled oxygen 98 % 98 % MEDGEN ([facility], ) Body mass index 23.1 kg/m2 23.1 kg/m2 MEDGEN (S t (BMI) [Ratio] [facility], ) Diastolic blood 82 mm[Hg] 82 mm[Hg] MEDGEN (S t [facility]) Systolic blood 130 mm[Hg] 130 mm[Hg] MEDGEN ([facility]) Body weight 143 lb 143 lb MEDGEN ([facility]) Body height 66 in 66 in MEDGEN ([facility]) Heart rate 87 /min 87 /min MEDGEN ([facility]) Inhaled oxygen 98 % 98 % MEDGEN ([facility], ) Body mass index 23.1 kg/m2 23.1 kg/m2 MEDGEN (S t (BMI) [Ratio] [facility], ) Diastolic blood 82 mm[Hg] 82 mm[Hg] MEDGEN (S t pressure [facility] , ) Systolic blood 130 mm[Hg] 130 mm[Hg] MEDGEN ([facility] , ) Body weight 143 lb 143 lb MEDGEN ([facility]) Body height 66 in 66 in MEDGEN ([facility]) Heart rate 87 /min 87 /min MEDGEN ([facility]) Inhaled oxygen 98 % 98 % MEDGEN ([facility], ) Body mass index 23.1 kg/m2 23.1 kg/m2 MEDGEN (S t (BMI) [Ratio] [facility], ) Diastolic blood 82 mm[Hg] 82 mm[Hg] MEDGEN (S t pressure [facility] , ) Systolic blood 130 mm[Hg] 130 mm[Hg] MEDGEN ([facility] , ) Body weight 143 lb 143 lb MEDGEN ([facility]) Body height 66 in 66 in MEDGEN ([facility]) Heart rate 87 /min 87 /min MEDGEN ([facility]) Inhaled oxygen 98 % 98 % MEDGEN ([facility], ) Body mass index 23.1 kg/m2 23.1 kg/m2 MEDGEN (S t (BMI) [Ratio] [facility], ) Diastolic blood 82 mm[Hg] 82 mm[Hg] MEDGEN (S t pressure [facility] , ) Systolic blood 130 mm[Hg] 130 mm[Hg] MEDGEN ([facility] , ) Body weight 143 lb 143 lb MEDGEN ([facility]) Body height 66 in 66 in MEDGEN ([facility]) Heart rate 87 /min 87 /min MEDGEN ([facility] , ) Inhaled oxygen 98 % 98 % MEDGEN ([facility], ) Body mass index 23.1 kg/m2 23.1 kg/m2 MEDGEN (S t (BMI) [Ratio] [facility], ) Diastolic blood 82 mm[Hg] 82 mm[Hg] MEDGEN (S t pressure [facility] , ) Systolic blood 130 mm[Hg] 130 mm[Hg] MEDGEN ([facility]) Body weight 143 lb 143 lb MEDGEN ([facility]) Body height 66 in 66 in [facility] ([facility]) Body mass index 22.6 kg/m2 22.6 kg/m2 MEDGEN (S t (BMI) [Ratio] [facility]) Diastolic blood 70 mm[Hg] 70 mm[Hg] MEDGEN ([facility]) Systolic blood 122 mm[Hg] 122 mm[Hg] MEDGEN ([facility]) Body weight 140 lb 140 lb [facility]) Body height 66 in 66 in [facility] ([facility]) Body mass index 22.6 kg/m2 22.6 kg/m2 MEDGEN (S t (BMI) [Ratio] [facility]) Diastolic blood 70 mm[Hg] 70 mm[Hg] MEDGEN ([facility]) Systolic blood 122 mm[Hg] 122 mm[Hg] MEDGEN ([facility]) Body weight 140 lb 140 lb [facility] ([facility]) Body height 66 in 66 in [facility] ([facility]) Body mass index 22.6 kg/m2 22.6 kg/m2 MEDGEN (S t (BMI) [Ratio] [facility]) Diastolic blood 70 mm[Hg] 70 mm[Hg] MEDGEN ([facility]) Systolic blood 122 mm[Hg] 122 mm[Hg] MEDGEN ([facility]) Body weight 140 lb 140 lb MEDGEN ([facility]) Body height 66 in 66 in [facility] ([facility]) Body mass index 22.6 kg/m2 22.6 kg/m2 MEDGEN (S t (BMI) [Ratio] [facility]) Diastolic blood 70 mm[Hg] 70 mm[Hg] MEDGEN ([facility]) Systolic blood 122 mm[Hg] 122 mm[Hg] MEDGEN ([facility]) Body weight 140 lb 140 lb [facility] ([facility]) Body height 66 in 66 in [facility] ([facility]) Body mass index 22.6 kg/m2 22.6 kg/m2 MEDGEN (S t (BMI) [Ratio] [facility], ) Diastolic blood 70 mm[Hg] 70 mm[Hg] MEDGEN (S t pressure [facility]) Systolic blood 122 mm[Hg] 122 mm[Hg] MEDGEN ([facility]) Body weight 140 lb 140 lb MEDGEN ([facility]) Body height 66 in 66 in [facility] ([facility]) Body mass index 22.6 kg/m2 22.6 kg/m2 MEDGEN (S t (BMI) [Ratio] [facility]) Diastolic blood 70 mm[Hg] 70 mm[Hg] MEDGEN (S t [facility]) Systolic blood 122 mm[Hg] 122 mm[Hg] MEDGEN ([facility]) Body weight 140 lb 140 lb MEDGEN ([facility]) Body height 66 in in [facility] ([facility]) Body mass index 23.2 kg/m2 23.2 kg/m2 MEDGEN (S t (BMI) [Ratio] [facility]) Diastolic blood 60 mm[Hg] 60 mm[Hg] MEDGEN ([facility]) Systolic blood 110 mm[Hg] 110 mm[Hg] MEDGEN ([facility]) Body weight 144 lb 144 lb [facility] ([facility]) Body height 66 in 66 in [facility] ([facility]) Body mass index 23.2 kg/m2 23.2 kg/m2 MEDGEN (S t (BMI) [Ratio] [facility]) Diastolic blood 60 mm[Hg] 60 mm[Hg] MEDGEN ([facility]) Systolic blood 110 mm[Hg] 110 mm[Hg] MEDGEN ([facility]) Body weight 144 lb 144 lb [facility] ([facility]) Body height 66 in 66 in [facility] ([facility]) Body mass index 23.2 kg/m2 23.2 kg/m2 MEDGEN (S t (BMI) [Ratio] [facility], ) Diastolic blood 60 mm[Hg] 60 mm[Hg] MEDGEN (S t pressure [facility]) Systolic blood 110 mm[Hg] 110 mm[Hg] MEDGEN ([facility]) Body weight 144 lb 144 lb MEDGEN ([facility]) Body height 66 in 66 in [facility] ([facility]) Body mass index 23.2 kg/m2 23.2 kg/m2 MEDGEN (S t (BMI) [Ratio] [facility], ) Diastolic blood 60 mm[Hg] 60 mm[Hg] MEDGEN (S t pressure [facility]) Systolic blood 110 mm[Hg] 110 mm[Hg] MEDGEN ([facility]) Body weight 144 lb 144 lb MEDGEN ([facility]) Body height 66 in 66 in [facility] ([facility]) Body mass index 23.2 kg/m2 23.2 kg/m2 MEDGEN (S t (BMI) [Ratio] [facility], ) Diastolic blood 60 mm[Hg] 60 mm[Hg] MEDGEN (S t [facility]) Systolic blood 110 mm[Hg] 110 mm[Hg] MEDGEN ([facility]) Body weight 144 lb 144 lb MEDGEN ([facility]) Body height 66 in 66 in MEDGEN ([facility]) Body mass index 23.2 kg/m2 23.2 kg/m2 MEDGEN (S t (BMI) [Ratio] [facility], ) Diastolic blood 60 mm[Hg] 60 mm[Hg] MEDGEN (S t [facility]) Systolic blood 110 mm[Hg] 110 mm[Hg] MEDGEN ([facility]) Body weight 144 lb 144 lb MEDGEN ([facility]) Body height 66 in 66 in [facility] ([facility]) Body mass index 23.2 kg/m2 23.2 kg/m2 MEDGEN (S t (BMI) [Ratio] [facility], ) Diastolic blood 72 mm[Hg] 72 mm[Hg] MEDGEN (S t pressure [facility]) Systolic blood 130 mm[Hg] 130 mm[Hg] MEDGEN ([facility]) Body weight 144 lb 144 lb MEDGEN ([facility]) Body height 66 in 66 in [facility] ([facility]) Body mass index 23.2 kg/m2 23.2 kg/m2 MEDGEN (S t (BMI) [Ratio] [facility], ) Diastolic blood 72 mm[Hg] 72 mm[Hg] MEDGEN (S t pressure [facility]) Systolic blood 130 mm[Hg] 130 mm[Hg] MEDGEN ([facility]) Body weight 144 lb 144 lb MEDGEN ([facility]) Body height 66 in 66 in [facility] ([facility]) Body mass index 23.2 kg/m2 23.2 kg/m2 MEDGEN (S t (BMI) [Ratio] [facility], ) Diastolic blood 72 mm[Hg] 72 mm[Hg] MEDGEN (S t pressure [facility]) Systolic blood 130 mm[Hg] 130 mm[Hg] MEDGEN ([facility]) Body weight 144 lb 144 lb MEDGEN ([facility]) Body height 66 in 66 in MEDGEN ([facility]) Body mass index 23.2 kg/m2 23.2 kg/m2 MEDGEN (S t (BMI) [Ratio] [facility], ) Diastolic blood 72 mm[Hg] 72 mm[Hg] MEDGEN (S t pressure [facility]) Systolic blood 130 mm[Hg] 130 mm[Hg] MEDGEN ([facility]) Body weight 144 lb 144 lb MEDGEN ([facility]) Body height 66 in 66 in [facility] ([facility]) Body mass index 23.2 kg/m2 23.2 kg/m2 MEDGEN (S t (BMI) [Ratio] [facility]) Diastolic blood 72 mm[Hg] 72 mm[Hg] MEDGEN (S t pressure [facility]) Systolic blood 130 mm[Hg] 130 mm[Hg] MEDGEN ([facility]) Body weight 144 lb 144 lb MEDGEN ([facility]) Body height 66 in in [facility] ([facility]) Body mass index 23.2 kg/m2 23.2 kg/m2 MEDGEN (S t (BMI) [Ratio] [facility]) Diastolic blood 72 mm[Hg] 72 mm[Hg] MEDGEN (S t [facility]) Systolic blood 130 mm[Hg] 130 mm[Hg] MEDGEN ([facility]) Body weight 144 lb 144 lb MEDGEN ([facility]) Body height 66 in in [facility] ([facility]) Body mass index 22.3 kg/m2 22.3 kg/m2 MEDGEN (S t (BMI) [Ratio] [facility]) Diastolic blood 68 mm[Hg] 68 mm[Hg] MEDGEN ([facility]) Systolic blood 112 mm[Hg] 112 mm[Hg] MEDGEN ([facility]) Body weight 138 lb 138 lb MEDGEN ([facility]) Body height 66 in in MEDGEN ([facility]) Body mass index 22.3 kg/m2 22.3 kg/m2 MEDGEN (S t (BMI) [Ratio] [facility], ) Diastolic blood 68 mm[Hg] 68 mm[Hg] MEDGEN ([facility]) Systolic blood 112 mm[Hg] 112 mm[Hg] MEDGEN ([facility]) Body weight 138 lb 138 lb MEDGEN ([facility]) Body height 66 in in [facility] ([facility]) Body mass index 22.3 kg/m2 22.3 kg/m2 MEDGEN (S t (BMI) [Ratio] [facility]) Diastolic blood 68 mm[Hg] 68 mm[Hg] MEDGEN ([facility]) Systolic blood 112 mm[Hg] 112 mm[Hg] MEDGEN ([facility]) Body weight 138 lb 138 lb MEDGEN ([facility]) Body height 66 in 66 in MEDGEN ([facility]) Body mass index 22.3 kg/m2 22.3 kg/m2 MEDGEN (S t (BMI) [Ratio] [facility]) Diastolic blood 68 mm[Hg] 68 mm[Hg] MEDGEN (S t pressure [facility]) Systolic blood 112 mm[Hg] 112 mm[Hg] MEDGEN ([facility]) Body weight 138 lb 138 lb MEDGEN ([facility]) Body height 66 in in [facility] ([facility]) Body mass index 22.3 kg/m2 22.3 kg/m2 MEDGEN (S t (BMI) [Ratio] [facility], ) Diastolic blood 68 mm[Hg] 68 mm[Hg] MEDGEN (S t pressure [facility]) Systolic blood 112 mm[Hg] 112 mm[Hg] MEDGEN ([facility]) Body weight 138 lb 138 lb MEDGEN ([facility]) Body height 66 in in MEDGEN ([facility]) Body mass index 22.3 kg/m2 22.3 kg/m2 MEDGEN (S t (BMI) [Ratio] [facility]) Diastolic blood 68 mm[Hg] 68 mm[Hg] MEDGEN (S t [facility]) Systolic blood 112 mm[Hg] 112 mm[Hg] MEDGEN ([facility]) Body weight 138 lb 138 lb MEDGEN ([facility]) Body height 66 in in MEDGEN ([facility]) Body mass index 21.6 kg/m2 21.6 kg/m2 MEDGEN (S t (BMI) [Ratio] [facility]) Diastolic blood 74 mm[Hg] 74 mm[Hg] MEDGEN (S t [facility]) Systolic blood 122 mm[Hg] 122 mm[Hg] MEDGEN ([facility]) Body weight 134 lb 134 lb MEDGEN ([facility]) Body height 66 in in MEDGEN ([facility]) Body mass index 21.6 kg/m2 21.6 kg/m2 MEDGEN (S t (BMI) [Ratio] [facility], ) Diastolic blood 74 mm[Hg] 74 mm[Hg] MEDGEN (S t pressure [facility]) Systolic blood 122 mm[Hg] 122 mm[Hg] MEDGEN (St pressure [facility]) Body weight 134 lb 134 lb MEDGEN ([facility]) Body height 66 in 66 in MEDGEN ([facility]) Body mass index 21.6 kg/m2 21.6 kg/m2 MEDGEN (S t (BMI) [Ratio] [facility], ) Diastolic blood 74 mm[Hg] 74 mm[Hg] MEDGEN (S t pressure [facility]) Systolic blood 122 mm[Hg] 122 mm[Hg] MEDGEN ([facility]) Body weight 134 lb 134 lb MEDGEN ([facility]) Body height 66 in in MEDGEN ([facility]) Body mass index 21.6 kg/m2 21.6 kg/m2 MEDGEN (S t (BMI) [Ratio] [facility], ) Diastolic blood 74 mm[Hg] 74 mm[Hg] MEDGEN (S t pressure [facility]) Systolic blood 122 mm[Hg] 122 mm[Hg] MEDGEN ([facility]) Body weight 134 lb 134 lb MEDGEN ([facility]) Body height 66 in in MEDGEN ([facility]) Body mass index 21.6 kg/m2 21.6 kg/m2 MEDGEN (S t (BMI) [Ratio] [facility], ) Diastolic blood 74 mm[Hg] 74 mm[Hg] MEDGEN (S t pressure [facility]) Systolic blood 122 mm[Hg] 122 mm[Hg] MEDGEN ([facility]) Body weight 134 lb 134 lb MEDGEN ([facility]) Body height 66 in 66 in MEDGEN ([facility]) Body mass index 21.6 kg/m2 21.6 kg/m2 MEDGEN (S t (BMI) [Ratio] [facility], ) Diastolic blood 74 mm[Hg] 74 mm[Hg] MEDGEN (S t pressure [facility]) Systolic blood 122 mm[Hg] 122 mm[Hg] MEDGEN ([facility]) Body weight 134 lb 134 lb MEDGEN ([facility]) Body height 66 in 66 in [facility] ([facility]) Body mass index 20.5 kg/m2 20.5 kg/m2 MEDGEN (S t (BMI) [Ratio] [facility]) Diastolic blood 72 mm[Hg] 72 mm[Hg] MEDGEN (S t pressure [facility]) Systolic blood 116 mm[Hg] 116 mm[Hg] MEDGEN ([facility]) Body weight 127 lb 127 lb [facility] ([facility]) Body height 66 in 66 in [facility] ([facility]) Body mass index 20.5 kg/m2 20.5 kg/m2 MEDGEN (S t (BMI) [Ratio] [facility]) Diastolic blood 72 mm[Hg] 72 mm[Hg] MEDGEN (S t pressure [facility]) Systolic blood 116 mm[Hg] 116 mm[Hg] MEDGEN ([facility]) Body weight 127 lb 127 lb MEDGEN ([facility]) Body height 66 in 66 in [facility] ([facility]) Body mass index 20.5 kg/m2 20.5 kg/m2 MEDGEN (S t (BMI) [Ratio] [facility]) Diastolic blood 72 mm[Hg] 72 mm[Hg] MEDGEN (S t [facility]) Systolic blood 116 mm[Hg] 116 mm[Hg] MEDGEN ([facility]) Body weight 127 lb 127 lb MEDGEN ([facility]) Body height 66 in 66 in [facility] ([facility]) Body mass index 20.5 kg/m2 20.5 kg/m2 MEDGEN (S t (BMI) [Ratio] [facility]) Diastolic blood 72 mm[Hg] 72 mm[Hg] MEDGEN (S t pressure [facility]) Systolic blood 116 mm[Hg] 116 mm[Hg] MEDGEN ([facility]) Body weight 127 lb 127 lb MEDGEN ([facility]) Body height 66 in 66 in [facility] ([facility]) Body mass index 20.5 kg/m2 20.5 kg/m2 MEDGEN (S t (BMI) [Ratio] [facility]) Diastolic blood 72 mm[Hg] 72 mm[Hg] MEDGEN (S t [facility]) Systolic blood 116 mm[Hg] 116 mm[Hg] MEDGEN ([facility]) Body weight 127 lb 127 lb [facility] ([facility]) Body height 66 in 66 in [facility] ([facility]) Body mass index 20.5 kg/m2 20.5 kg/m2 MEDGEN (S t (BMI) [Ratio] [facility]) Diastolic blood 72 mm[Hg] 72 mm[Hg] MEDGEN (S t [facility]) Systolic blood 116 mm[Hg] 116 mm[Hg] MEDGEN ([facility]) Body weight 127 lb 127 lb [facility] ([facility]) Body height 66 in 66 in [facility] ([facility]) Body mass index 20.3 kg/m2 20.3 kg/m2 MEDGEN (S t (BMI) [Ratio] [facility]) Diastolic blood 80 mm[Hg] 80 mm[Hg] [facility] (S t [facility]) Systolic blood 116 mm[Hg] 116 mm[Hg] MEDGEN ([facility]) Body weight 126 lb 126 lb [facility] ([facility]) Body height 66 in 66 in [facility] ([facility]) Body mass index 20.3 kg/m2 20.3 kg/m2 MEDGEN (S t (BMI) [Ratio] [facility]) Diastolic blood 80 mm[Hg] 80 mm[Hg] [facility] ([facility]) Systolic blood 116 mm[Hg] 116 mm[Hg] [facility] ([facility]) Body weight 126 lb 126 lb MEDGEN ([facility]) Body height 66 in 66 in [facility] ([facility]) Body mass index 20.3 kg/m2 20.3 kg/m2 MEDGEN (S t (BMI) [Ratio] [facility], ) Diastolic blood 80 mm[Hg] 80 mm[Hg] MEDGEN (S t pressure [facility]) Systolic blood 116 mm[Hg] 116 mm[Hg] MEDGEN ([facility]) Body weight 126 lb 126 lb MED[facility] ([facility]) Body height 66 in 66 in [facility] ([facility]) Body mass index 20.3 kg/m2 20.3 kg/m2 MEDGEN (S t (BMI) [Ratio] [facility], ) Diastolic blood 80 mm[Hg] 80 mm[Hg] MEDGEN (S t [facility]) Systolic blood 116 mm[Hg] 116 mm[Hg] MEDGEN ([facility]) Body weight 126 lb 126 lb MED[facility] ([facility]) Body height 66 in 66 in [facility] ([facility]) Body mass index 20.3 kg/m2 20.3 kg/m2 MEDGEN (S t (BMI) [Ratio] [facility], ) Diastolic blood 80 mm[Hg] 80 mm[Hg] MEDGEN (S t [facility]) Systolic blood 116 mm[Hg] 116 mm[Hg] MEDGEN ([facility]) Body weight 126 lb 126 lb [facility] ([facility]) Body height 66 in 66 in [facility] ([facility]) Body mass index 20.3 kg/m2 20.3 kg/m2 MEDGEN (S t (BMI) [Ratio] [facility], ) Diastolic blood 80 mm[Hg] 80 mm[Hg] MEDGEN (S t pressure [facility]) Systolic blood 116 mm[Hg] 116 mm[Hg] MEDGEN ([facility]) Body weight 126 lb 126 lb [facility] ([facility]) Body height 66 in 66 in [facility] ([facility]) Body mass index 19.5 kg/m2 19.5 kg/m2 MEDGEN (S t (BMI) [Ratio] [facility], ) Diastolic blood 70 mm[Hg] 70 mm[Hg] MEDGEN (S t pressure [facility]) Systolic blood 110 mm[Hg] 110 mm[Hg] MEDGEN ([facility]) Body weight 121 lb 121 lb [facility] ([facility]) Body height 66 in 66 in [facility] ([facility]) Body mass index 19.5 kg/m2 19.5 kg/m2 MEDGEN (S t (BMI) [Ratio] [facility], ) Diastolic blood 70 mm[Hg] 70 mm[Hg] MEDGEN (S t pressure [facility]) Systolic blood 110 mm[Hg] 110 mm[Hg] MEDGEN ([facility]) Body weight 121 lb 121 lb [facility] ([facility]) Body height 66 in 66 in [facility] ([facility]) Body mass index 19.5 kg/m2 19.5 kg/m2 MEDGEN (S t (BMI) [Ratio] [facility], ) Diastolic blood 70 mm[Hg] 70 mm[Hg] MEDGEN (S t pressure [facility]) Systolic blood 110 mm[Hg] 110 mm[Hg] MEDGEN ([facility]) Body weight 121 lb 121 lb [facility] ([facility]) [facility] Body mass index 19.5 kg/m2 19.5 kg/m2 [facility] (S t (BMI) [Ratio] [facility], ) Diastolic blood 70 mm[Hg] 70 mm[Hg] [facility] (S t [facility]) Systolic blood 110 mm[Hg] 110 mm[Hg] [facility] ([facility]) Body weight 121 lb 121 lb [facility] ([facility]) Body height 66 in 66 in [facility] ([facility]) Body mass index 19.5 kg/m2 19.5 kg/m2 [facility] (S t (BMI) [Ratio] [facility], ) Diastolic blood 70 mm[Hg] 70 mm[Hg] [facility] (S t pressure [facility]) Systolic blood 110 mm[Hg] 110 mm[Hg] [facility] ([facility]) Body weight 121 lb 121 lb [facility] ([facility]) Body height 66 in 66 in [facility] ([facility]) Body mass index 19.5 kg/m2 19.5 kg/m2 [facility] (S t (BMI) [Ratio] [facility]) Diastolic blood 70 mm[Hg] 70 mm[Hg] [facility] (S t [facility]) Systolic blood 110 mm[Hg] 110 mm[Hg] [facility] ([facility]) Body weight 121 lb 121 lb [facility] ([facility]) Body height 66 in in [facility] ([facility]) Body mass index 21.3 kg/m2 21.3 kg/m2 [facility] (S t (BMI) [Ratio] [facility]) Diastolic blood 60 mm[Hg] 60 mm[Hg] [facility] (S [facility]) Systolic blood 100 mm[Hg] 100 mm[Hg] [facility] ([facility]) Body weight 132 lb 132 lb [facility] ([facility]) [facility] height 66 in [facility]) Body mass index 21.3 kg/m2 21.3 kg/m2 [facility] (S t (BMI) [Ratio] [facility]) Diastolic blood 60 mm[Hg] 60 mm[Hg] [facility] (S [facility]) Systolic blood 100 mm[Hg] 100 mm[Hg] [facility] ([facility]) Body weight 132 lb 132 lb [facility] ([facility]) Body height 66 in 66 in [facility]) Body mass index 21.3 kg/m2 21.3 kg/m2 [facility] (S t (BMI) [Ratio] [facility]) Diastolic blood 60 mm[Hg] 60 mm[Hg] [facility] (S [facility]) Systolic blood 100 mm[Hg] 100 mm[Hg] [facility] ([facility]) Body weight 132 lb 132 lb [facility] ([facility]) Body height 66 in 66 in [facility] ([facility]) Body mass index 21.3 kg/m2 21.3 kg/m2 [facility] (S t (BMI) [Ratio] [facility], ) Diastolic blood 60 mm[Hg] 60 mm[Hg] [facility] (S t pressure [facility]) Systolic blood 100 mm[Hg] 100 mm[Hg] [facility] ([facility]) Body weight 132 lb 132 lb [facility] ([facility]) Body height 66 in 66 in [facility]) Body weight 132 lb 132 lb [facility] ([facility]) Body height 66 in 66 in [facility] ([facility]) Body mass index 21.3 kg/m2 21.3 kg/m2 [facility] (S t (BMI) [Ratio] [facility], ) Diastolic blood 60 mm[Hg] 60 mm[Hg] [facility] (S t pressure [facility]) Systolic blood 100 mm[Hg] 100 mm[Hg] [facility] ([facility]) Body mass index 21.3 kg/m2 21.3 kg/m2 [facility] (S t (BMI) [Ratio] [facility], ) Diastolic blood 60 mm[Hg] 60 mm[Hg] [facility] (S t pressure [facility]) Systolic blood 100 mm[Hg] 100 mm[Hg] [facility] ([facility]) Body weight 132 lb 132 lb [facility] ([facility]) Body height 66 in 66 in [facility]) Body mass index 22.1 kg/m2 22.1 kg/m2 [facility] (S t (BMI) [Ratio] [facility], ) Diastolic blood 64 mm[Hg] 64 mm[Hg] [facility] (S t pressure [facility]) Systolic blood 100 mm[Hg] 100 mm[Hg] [facility] ([facility]) Body weight 137 lb 137 lb [facility] ([facility]) Body height 66 in in [facility] ([facility]) Body mass index 22.1 kg/m2 22.1 kg/m2 [facility] (S t (BMI) [Ratio] [facility], ) Diastolic blood 64 mm[Hg] 64 mm[Hg] [facility] (S t pressure [facility]) Systolic blood 100 mm[Hg] 100 mm[Hg] [facility] ([facility]) Body weight 137 lb 137 lb [facility] ([facility]) Body height 66 in 66 in [facility] ([facility]) Body mass index 22.1 kg/m2 22.1 kg/m2 [facility] (S t (BMI) [Ratio] [facility], ) Diastolic blood 64 mm[Hg] 64 mm[Hg] [facility] (S t pressure [facility]) Systolic blood 100 mm[Hg] 100 mm[Hg] [facility] ([facility]) Body weight 137 lb 137 lb [facility] ([facility]) Body height 66 in 66 in [facility] ([facility]) Body mass index 22.1 kg/m2 22.1 kg/m2 [facility] (S t (BMI) [Ratio] [facility], ) Diastolic blood 64 mm[Hg] 64 mm[Hg] [facility] (S t pressure [facility]) Systolic blood 100 mm[Hg] 100 mm[Hg] [facility] ([facility]) Body weight 137 lb 137 lb [facility] ([facility]) Body height 66 in 66 in [facility] ([facility]) Body mass index 22.1 kg/m2 22.1 kg/m2 [facility] (S t (BMI) [Ratio] [facility], ) Diastolic blood 64 mm[Hg] 64 mm[Hg] [facility] (S t pressure [facility]) Systolic blood 100 mm[Hg] 100 mm[Hg] [facility] ([facility]) Body weight 137 lb 137 lb [facility] ([facility]) Body height 66 in 66 in [facility] ([facility]) Body mass index 22.1 kg/m2 22.1 kg/m2 [facility] (S t (BMI) [Ratio] [facility], ) Diastolic blood 64 mm[Hg] 64 mm[Hg] [facility] (S t pressure [facility]) Systolic blood 100 mm[Hg] 100 mm[Hg] [facility] ([facility]) Body weight 137 lb 137 lb [facility] ([facility]) Body height 66 in 66 in [facility] ([facility]) Body mass index 22.3 kg/m2 22.3 kg/m2 [facility] (S t (BMI) [Ratio] [facility], ) Diastolic blood 70 mm[Hg] 70 mm[Hg] [facility] (S t pressure [facility]) Systolic blood 126 mm[Hg] 126 mm[Hg] [facility] ([facility]) Body weight 138 lb 138 lb [facility] ([facility]) Body height 66 in 66 in [facility] ([facility]) Body mass index 22.3 kg/m2 22.3 kg/m2 [facility] (S t (BMI) [Ratio] [facility], ) Diastolic blood 70 mm[Hg] 70 mm[Hg] [facility] (S t pressure [facility]) Systolic blood 126 mm[Hg] 126 mm[Hg] [facility] ([facility]) Body weight 138 lb 138 lb [facility] ([facility]) Body height 66 in 66 in [facility] ([facility]) Body mass index 22.3 kg/m2 22.3 kg/m2 [facility] (S t (BMI) [Ratio] [facility], ) Diastolic blood 70 mm[Hg] 70 mm[Hg] [facility] (S t pressure [facility]) Systolic blood 126 mm[Hg] 126 mm[Hg] [facility] ([facility]) Body weight 138 lb 138 lb [facility] ([facility]) Body height 66 in 66 in [facility] ([facility]) Body mass index 22.3 kg/m2 22.3 kg/m2 [facility] (S t (BMI) [Ratio] [facility], ) Diastolic blood 70 mm[Hg] 70 mm[Hg] [facility] (S t pressure [facility]) Systolic blood 126 mm[Hg] 126 mm[Hg] [facility] ([facility]) Body weight 138 lb 138 lb [facility] ([facility]) Body height 66 in 66 in [facility] ([facility]) Body mass index 22.3 kg/m2 22.3 kg/m2 [facility] (S t (BMI) [Ratio] [facility]) Diastolic blood 70 mm[Hg] 70 mm[Hg] [facility] (S [facility]) Systolic blood 126 mm[Hg] 126 mm[Hg] [facility] ([facility]) Body weight 138 lb 138 lb [facility] ([facility]) Body height 66 in in [facility] ([facility]) Body mass index 22.3 kg/m2 22.3 kg/m2 [facility] (S t (BMI) [Ratio] [facility]) Diastolic blood 70 mm[Hg] 70 mm[Hg] [facility] (S [facility]) Systolic blood 126 mm[Hg] 126 mm[Hg] [facility] ([facility]) Body weight 138 lb 138 lb [facility] ([facility]) Body height 66 in in [facility] ([facility]) Body mass index 20.5 kg/m2 20.5 kg/m2 [facility] (S t (BMI) [Ratio] [facility], ) Diastolic blood 70 mm[Hg] 70 mm[Hg] [facility] (S [facility]) Systolic blood 100 mm[Hg] 100 mm[Hg] [facility] ([facility]) Body weight 127 lb 127 lb [facility] ([facility]) Body height 66 in 66 in [facility] ([facility]) Body mass index 20.5 kg/m2 20.5 kg/m2 [facility] (S t (BMI) [Ratio] [facility]) Diastolic blood 70 mm[Hg] 70 mm[Hg] [facility] (S [facility]) Systolic blood 100 mm[Hg] 100 mm[Hg] [facility] ([facility]) Body weight 127 lb 127 lb [facility] ([facility]) Body height 66 in 66 in [facility] ([facility]) Body mass index 20.5 kg/m2 20.5 kg/m2 [facility] (S t (BMI) [Ratio] [facility], ) Diastolic blood 70 mm[Hg] 70 mm[Hg] [facility] (S t pressure [facility]) Systolic blood 100 mm[Hg] 100 mm[Hg] [facility] ([facility]) Body weight 127 lb 127 lb [facility] ([facility]) Body height 66 in 66 in [facility] ([facility]) Diastolic blood 70 mm[Hg] 70 mm[Hg] [facility] (S t pressure [facility]) Systolic blood 100 mm[Hg] 100 mm[Hg] [facility] ([facility]) Body weight 127 lb 127 lb [facility]) Body height 66 in 66 in [facility] ([facility]) Body mass index 20.5 kg/m2 20.5 kg/m2 [facility] (S t (BMI) [Ratio] [facility], ) Body mass index 20.5 kg/m2 20.5 kg/m2 [facility] (S t (BMI) [Ratio] [facility], ) Diastolic blood 70 mm[Hg] 70 mm[Hg] [facility] (S t pressure [facility]) Systolic blood 100 mm[Hg] 100 mm[Hg] [facility] ([facility]) Body weight 127 lb 127 lb [facility] ([facility]) Body height 66 in 66 in [facility] ([facility]) Body mass index 20.5 kg/m2 20.5 kg/m2 [facility] (S t (BMI) [Ratio] [facility], ) Diastolic blood 70 mm[Hg] 70 mm[Hg] [facility] (S t pressure [facility]) Systolic blood 100 mm[Hg] 100 mm[Hg] [facility] ([facility]) Body weight 127 lb 127 lb [facility] ([facility]) Body height 66 in 66 in [facility] ([facility]) Body mass index 20.2 kg/m2 20.2 kg/m2 [facility] (S t (BMI) [Ratio] [facility], ) Diastolic blood 70 mm[Hg] 70 mm[Hg] [facility] (S t pressure [facility]) Systolic blood 120 mm[Hg] 120 mm[Hg] [facility] ([facility]) Body weight 125 lb 125 lb [facility] ([facility]) Body height 66 in 66 in [facility] ([facility]) Body mass index 20.2 kg/m2 20.2 kg/m2 [facility] (S t (BMI) [Ratio] [facility], ) Diastolic blood 70 mm[Hg] 70 mm[Hg] [facility] (S t pressure [facility]) Systolic blood 120 mm[Hg] 120 mm[Hg] [facility] ([facility]) Body weight 125 lb 125 lb [facility] ([facility]) Body height 66 in 66 in [facility] ([facility]) Body mass index 20.2 kg/m2 20.2 kg/m2 [facility] (S t (BMI) [Ratio] [facility], ) Diastolic blood 70 mm[Hg] 70 mm[Hg] [facility] (S t [facility]) Systolic blood 120 mm[Hg] 120 mm[Hg] [facility] ([facility]) Body weight 125 lb 125 lb [facility] ([facility]) Body height 66 in 66 in [facility] ([facility]) Body mass index 20.2 kg/m2 20.2 kg/m2 [facility] (S t (BMI) [Ratio] [facility], ) Diastolic blood 70 mm[Hg] 70 mm[Hg] [facility] (S t pressure [facility]) Systolic blood 120 mm[Hg] 120 mm[Hg] [facility] ([facility]) Body weight 125 lb 125 lb [facility] ([facility]) Body height 66 in 66 in [facility] ([facility]) Body mass index 20.2 kg/m2 20.2 kg/m2 [facility] (S t (BMI) [Ratio] [facility], ) Diastolic blood 70 mm[Hg] 70 mm[Hg] [facility] (S t pressure [facility]) Systolic blood 120 mm[Hg] 120 mm[Hg] [facility] ([facility]) Body weight 125 lb 125 lb [facility] ([facility]) Body height 66 in 66 in [facility] ([facility]) Body mass index 20.2 kg/m2 20.2 kg/m2 [facility] (S t (BMI) [Ratio] [facility]) Diastolic blood 70 mm[Hg] 70 mm[Hg] [facility] (S t pressure [facility]) Systolic blood 120 mm[Hg] 120 mm[Hg] [facility] ([facility]) Body weight 125 lb 125 lb [facility] ([facility]) Body height 66 in 66 in [facility] ([facility]) Body mass index 20.5 kg/m2 20.5 kg/m2 [facility] (S t (BMI) [Ratio] [facility]) Diastolic blood 70 mm[Hg] 70 mm[Hg] [facility] (S t [facility]) Systolic blood 122 mm[Hg] 122 mm[Hg] [facility] ([facility]) Body weight 127 lb 127 lb [facility] ([facility]) Body height 66 in 66 in [facility] ([facility]) Body mass index 20.5 kg/m2 20.5 kg/m2 [facility] (S t (BMI) [Ratio] [facility]) Diastolic blood 70 mm[Hg] 70 mm[Hg] [facility] (S t [facility]) Systolic blood 122 mm[Hg] 122 mm[Hg] [facility] ([facility]) Body weight 127 lb 127 lb [facility] ([facility]) Body height 66 in 66 in [facility] ([facility]) Body mass index 20.5 kg/m2 20.5 kg/m2 [facility] (S t (BMI) [Ratio] [facility]) Diastolic blood 70 mm[Hg] 70 mm[Hg] [facility] (S t pressure [facility]) Systolic blood 122 mm[Hg] 122 mm[Hg] [facility] ([facility]) Body weight 127 lb 127 lb [facility] ([facility]) Body height 66 in 66 in [facility] ([facility]) Body mass index 20.5 kg/m2 20.5 kg/m2 [facility] (S t (BMI) [Ratio] [facility]) Diastolic blood 70 mm[Hg] 70 mm[Hg] [facility] (S t [facility]) Systolic blood 122 mm[Hg] 122 mm[Hg] [facility] ([facility]) Body weight 127 lb 127 lb [facility] ([facility]) Body height 66 in 66 in [facility] ([facility]) Body mass index 20.5 kg/m2 20.5 kg/m2 [facility] (S t (BMI) [Ratio] [facility]) Diastolic blood 70 mm[Hg] 70 mm[Hg] [facility] (S [facility]) Systolic blood 122 mm[Hg] 122 mm[Hg] [facility] ([facility]) Body weight 127 lb 127 lb [facility] ([facility]) Body height 66 in 66 in [facility] ([facility]) Body mass index 20.5 kg/m2 20.5 kg/m2 [facility] (S t (BMI) [Ratio] [facility]) Diastolic blood 70 mm[Hg] 70 mm[Hg] [facility] (S [facility]) Systolic blood 122 mm[Hg] 122 mm[Hg] [facility] ([facility]) Body weight 127 lb 127 lb [facility] ([facility]) Body height 66 in 66 in [facility] ([facility]) Body mass index 21 kg/m2 21 kg/m2 [facility] (S t (BMI) [Ratio] [facility]) Diastolic blood 64 mm[Hg] 64 mm[Hg] [facility] (S [facility]) Systolic blood 102 mm[Hg] 102 mm[Hg] [facility] ([facility]) Body weight 130 lb 130 lb [facility] ([facility]) Body height 66 in 66 in [facility] ([facility]) Body mass index 21 kg/m2 21 kg/m2 [facility] (S t (BMI) [Ratio] [facility], ) Diastolic blood 64 mm[Hg] 64 mm[Hg] [facility] (S t pressure [facility]) Systolic blood 102 mm[Hg] 102 mm[Hg] [facility] ([facility]) Body weight 130 lb 130 lb [facility] ([facility]) Body height 66 in 66 in [facility] ([facility]) Body mass index 21 kg/m2 21 kg/m2 [facility] (S t (BMI) [Ratio] [facility], ) Diastolic blood 64 mm[Hg] 64 mm[Hg] [facility] (S t pressure [facility]) Systolic blood 102 mm[Hg] 102 mm[Hg] [facility] ([facility]) Body weight 130 lb 130 lb [facility] ([facility]) Body height 66 in in [facility] ([facility]) Body mass index 21 kg/m2 21 kg/m2 [facility] (S t (BMI) [Ratio] [facility], ) Diastolic blood 64 mm[Hg] 64 mm[Hg] [facility] (S t pressure [facility]) Systolic blood 102 mm[Hg] 102 mm[Hg] [facility] ([facility]) Body weight 130 lb 130 lb [facility] ([facility]) Body height 66 in 66 in [facility] ([facility]) Body mass index 21 kg/m2 21 kg/m2 [facility] (S t (BMI) [Ratio] [facility], ) Diastolic blood 64 mm[Hg] 64 mm[Hg] [facility] (S t pressure [facility]) Systolic blood 102 mm[Hg] 102 mm[Hg] [facility] ([facility]) Body weight 130 lb 130 lb [facility] ([facility]) Body height 66 in 66 in [facility] ([facility]) Systolic blood 102 mm[Hg] 102 mm[Hg] [facility] ([facility]) Body weight 130 lb 130 lb [facility] ([facility]) Body height 66 in 66 in [facility] ([facility] , ) Body mass index 21 kg/m2 21 kg/m2 [facility] (S t (BMI) [Ratio] [facility], ) Diastolic blood 64 mm[Hg] 64 mm[Hg] [facility] (S t pressure [facility] , )
[2019-12-06 10:25] VITALS: TEMP 98.5
[2019-12-06 11:20] VITALS: BP 142/89; PULSE 73
--- NOTE | 2019-12-09 16:53 | PATH ---
Surgical Pathology Report Patient Name: ANNIA COHEN [facility]. Rec. #: [id number] /Age/Gender: 1960 (Age: 58) / F Account: [id number] Location: U-ENDOSCOPY Taken: 12/06/2019 Received: 12/06/2019 Reported: 12/09/2019 Physicians: Pasha Shoemaker D.O. Specimen(s) Received A: PYLORUS B: ANTRAL ANGULARIS AND BODY R/O H-PYLORI Clinical History Anemia Postoperative diagnosis: Gastritis, retained food Final Diagnosis A. PYLORUS, BIOPSY: MILD CHRONIC GASTRITIS WITH INTESTINAL METAPLASIA. IMMUNOSTAIN IS NEGATIVE FOR H. PYLORI ORGANISMS. SCANT FOOD MATTER. B. ANTRAL ANGULARIS AND BODY R/O H. PYLORI, BIOPSY: MILD CHRONIC GASTRITIS. IMMUNOSTAIN IS NEGATIVE FOR H. PYLORI ORGANISMS. Electronically Signed Carol Fernandes M.D. Gross Description A. Received in formalin, labeled "biopsy pylorus" are 2 stephens, irregular portions of soft tissue measuring 0.2 and 0.3 cm. in greatest dimension. The specimens are submitted in toto in one cassette. B. Received in formalin, labeled "biopsy antrum angularis and body" are 5 stephens, irregular portions of soft tissue ranging from 0.2-0.3 cm. in greatest dimension. The specimens are submitted in toto in one cassette. 12/06/2019 saudi12/06/2019
== END 2019-12-06 11:05 | disposition home or self-care (01) ==
LOC: JASU-ENDO 05:28
PROVIDERS: ATTEND Internal Medicine Gastroenterology
PROC: 0DB78ZX Excision of Stomach, Pylorus, Via Natural or Artificial Opening Endoscopic, Diagnostic (ICD-10-PCS; 2019-12-06)
PROC: 0DB68ZX Excision of Stomach, Via Natural or Artificial Opening Endoscopic, Diagnostic (ICD-10-PCS; principal; 2019-12-06 10:00)
DX: D64.9 Anemia, unspecified (principal); K29.50 Unspecified chronic gastritis without bleeding
CPT/HCPCS: 88305-TC; 88342-TC

== ENCOUNTER 2020-05-06 14:21 | Emergency (ER) | payer OTHER ==
[2020-05-06 14:26] VITALS: BMI 22.6
[2020-05-06] MEDS ORDERED: ACETAMINOPHEN 500 MG TABLET (FP) PO ONE (14:51)
[2020-05-06] MEDS ORDERED: ONDANSETRON *ODT* 4 MG TABLET SL ONE (14:51)
[2020-05-06] MEDS ORDERED: ACETAMINOPHEN 1000 MG/100 ML VIAL (NON FORMULARY) IVPB ONE (14:56)
[2020-05-06] MEDS ORDERED: SODIUM CHLORIDE 0.9% 500 ML INFUS.BAG IV ONE (14:56)
[2020-05-06] MEDS ORDERED: ONDANSETRON 4 MG/2 ML VIAL IVPUSH ONE (14:56)
[2020-05-06] MEDS ORDERED: METOCLOPRAMIDE HCL INJECTION 10 MG/2 ML VIAL IVPB ONE (14:56)
[2020-05-06] MEDS ORDERED: METOCLOPRAMIDE HCL INJECTION 10 MG/2 ML VIAL ONE (15:09)
[2020-05-06] MEDS ORDERED: ACETAMINOPHEN INJECTION 100 ML IVPB ONE (15:10)
[2020-05-06] MEDS ORDERED: ONDANSETRON 4 MG/2 ML VIAL ONE (15:10)
[2020-05-06 16:12] LABS: BASO % 0.6 % (0-2.0); EOS % 0.3 % (0-4.5); HEMATOCRIT 29.8 % (32.4-45.2); HEMOGLOBIN 10.1 GM/dL (10.7-15.3); LYMPH % 13.3 % (8-40); MCH 28.2 pg (25.7-33.7); MCHC 33.8 g/dl (32.0-36.0); MEAN CELL VOLUME 83.6 fl (80-96); MEAN PLT VOLUME 8.5 fl (7.5-11.1); MONO % 4.3 % (3.8-10.2); NEUT % 81.5 % (42.8-82.8); PLATELET COUNT 251 K/MM3 (134-434); RBC 3.57 M/mm3 (3.60-5.2); WHITE BLOOD COUNT 9.9 K/mm3 (4.0-10.0)
[2020-05-06 16:24] LABS: POTASSIUM 4.5 mmol/L (3.5-5.1)
[2020-05-06 16:26] LABS: ALBUMIN 3.4 g/dl (3.4-5.0); CALCIUM 9.3 mg/dL (8.5-10.1)
[2020-05-06 16:27] LABS: BLOOD UREA NITROGEN 43.7 mg/dL (7-18)
[2020-05-06 16:31] LABS: BILIRUBIN,TOTAL 0.3 mg/dL (0.2-1); CREATININE 1.8 mg/dL (0.55-1.3); TOT PROT 6.9 g/dl (6.4-8.2)
[2020-05-06 17:20] VITALS: BP 190/96; PULSE 100; TEMP 98.8
== END 2020-05-06 17:32 | disposition home or self-care (01) ==
LOC: JER 14:21
PROC: 3E0333Z Introduction of Anti-inflammatory into Peripheral Vein, Percutaneous Approach (ICD-10-PCS; principal; 2020-05-06)
PROC: 3E033GC Introduction of Other Therapeutic Substance into Peripheral Vein, Percutaneous Approach (ICD-10-PCS; 2020-05-06)
PROC: 3E033GC Introduction of Other Therapeutic Substance into Peripheral Vein, Percutaneous Approach (ICD-10-PCS; 2020-05-06)
DX: R79.89 Other specified abnormal findings of blood chemistry (principal); R51.9 Headache, unspecified; I10 Essential (primary) hypertension
CPT/HCPCS: 36415; 80053; 85025; 99284-25; J0131

== ENCOUNTER 2021-09-15 13:33 | Inpatient (IN) | payer MEDICARE, OTHER ==
[2021-09-15 13:57] VITALS: BMI 22.5
[2021-09-15] MEDS ORDERED: SODIUM CHLORIDE 0.9% 500 ML INFUS.BAG IV ONE (14:38)
[2021-09-15 14:43] LABS: VENOUS BASE EXCESS -4.4 mmol/L (-2-2); VENOUS O2 SATURATION 47.6 % (70-80); VENOUS PCO2 45.9 mmHg (38-52); VENOUS PH 7.296 (7.310-7.410)
[2021-09-15 14:45] LABS: BASO % 1.2 % (0-2.0); EOS % 1.6 % (0-4.5); HEMOGLOBIN 7.4 GM/dL (10.7-15.3); LYMPH % 15.5 % (8-40); MCH 27.3 pg (25.7-33.7); MCHC 33.8 g/dl (32.0-36.0); MEAN CELL VOLUME 80.7 fl (80-96); MEAN PLT VOLUME 7.2 fl (7.5-11.1); MONO % 7.7 % (3.8-10.2); PLATELET COUNT 278 10^3/uL (134-434); RBC 2.73 M/mm3 (3.60-5.2); RDW 14.5 % (11.6-15.6); WHITE BLOOD COUNT 8.4 K/mm3 (4.0-10.0)
[2021-09-15 15:04] LABS: CALCIUM 8.9 mg/dL (8.5-10.1)
[2021-09-15 15:05] LABS: ALBUMIN 3.1 g/dl (3.4-5.0); BLOOD UREA NITROGEN 98.8 mg/dL (7-18)
[2021-09-15 15:08] LABS: CREATININE 4.7 mg/dL (0.55-1.3)
[2021-09-15 15:10] LABS: BILIRUBIN,TOTAL 0.2 mg/dL (0.2-1); TOT PROT 6.3 g/dl (6.4-8.2)
[2021-09-15 17:00] LABS: EPI CELLS 9 /uL (0-25.1); HYALINE CASTS 0 /uL (0-3.1); URINE APPEARANCE CLEAR; URINE BACTERIA 8 /uL (0-1359); URINE BILIRUBIN NEGATIVE (NEGATIVE); URINE COLOR YELLOW; URINE GLUCOSE (UA) 1+ (NEGATIVE); URINE KETONE NEGATIVE (NEGATIVE); URINE LEUK ESTERASE NEGATIVE (NEGATIVE); URINE NITRITE NEGATIVE (NEGATIVE); URINE PROTEIN 3+ (NEGATIVE); URINE RBC 10 /uL (0-23.9); URINE UROBILINOGEN 0.2 mg/dL (0.2-1.0); URINE WBC 6 /uL (0-25.8)
[2021-09-15] MEDS ORDERED: SODIUM CHLORIDE 0.45% 1,000 ML IV SCH (17:45)
[2021-09-15] MEDS: INSULIN SLIDING SCALE (NOVOLOG) 1 VIAL SQ SCH (17:51)
[2021-09-15] MEDS ORDERED: INSULIN (LEVEMIR) 100 UNITS/ML UNITS SQ ONE (20:36)
[2021-09-15] MEDS ORDERED: ATORVASTATIN CA 10 MG TABLET (FP) ONE (20:38)
[2021-09-15] MEDS: INSULIN (LEVEMIR) 100 UNITS/ML UNITS SQ SCH (20:40)
[2021-09-15] MEDS ORDERED: ATORVASTATIN CA 10 MG TABLET (FP) PO SCH (22:00)
[2021-09-16] MEDS: INSULIN SLIDING SCALE (NOVOLOG) 1 VIAL SQ SCH ×3 (06:06→17:12)
[2021-09-16 08:33] LABS: PHOSPHOROUS 4.7 mg/dL (2.5-4.9)
[2021-09-16] MEDS ORDERED: ATORVASTATIN CA 10 MG TABLET (FP) PO SCH (14:08)
[2021-09-16 14:13] LABS: BASO % 0.9 % (0-2.0); EOS % 2.1 % (0-4.5); HEMATOCRIT 26.1 % (32.4-45.2); HEMOGLOBIN 8.9 GM/dL (10.7-15.3); LYMPH % 19.2 % (8-40); MCH 28.1 pg (25.7-33.7); MCHC 34.1 g/dl (32.0-36.0); MEAN CELL VOLUME 82.5 fl (80-96); MEAN PLT VOLUME 7.3 fl (7.5-11.1); MONO % 8.3 % (3.8-10.2); NEUT % 69.5 % (42.8-82.8); PLATELET COUNT 262 10^3/uL (134-434); RBC 3.17 M/mm3 (3.60-5.2); RDW 14.8 % (11.6-15.6); WHITE BLOOD COUNT 10.1 K/mm3 (4.0-10.0)
[2021-09-16] MEDS ORDERED: amLODIPine BESYLATE 5 MG TABLET (FP) PO SCH (14:15)
[2021-09-16 16:57] LABS: CALCIUM 8.1 mg/dL (8.5-10.1)
[2021-09-16 16:58] LABS: ALBUMIN 2.6 g/dl (3.4-5.0); BLOOD UREA NITROGEN 84.1 mg/dL (7-18); MAGNESIUM 2.3 mg/dL (1.8-2.4)
[2021-09-16 17:01] LABS: PHOSPHOROUS 4.7 mg/dL (2.5-4.9)
[2021-09-16 17:03] LABS: BILIRUBIN,TOTAL 0.3 mg/dL (0.2-1); TOT PROT 5.5 g/dl (6.4-8.2)
[2021-09-16] MEDS ORDERED: amLODIPine BESYLATE 10 MG TABLET (FP) PO SCH (17:23)
[2021-09-16] MEDS: CARVEDILOL 3.125 MG TABLET (FP) PO SCH (22:01)
[2021-09-16] MEDS: INSULIN (LEVEMIR) 100 UNITS/ML UNITS SQ SCH (22:06)
[2021-09-17] MEDS: INSULIN SLIDING SCALE (NOVOLOG) 1 VIAL SQ SCH ×3 (06:37→16:55)
[2021-09-17] MEDS ORDERED: SODIUM ZIRCONIUM CYCLOSILICATE (LOKELMA) 5 GM PACKET PO SCH (06:42)
[2021-09-17 06:51] LABS: HEMATOCRIT 22.2 % (32.4-45.2); HEMOGLOBIN 7.7 GM/dL (10.7-15.3); MCHC 34.5 g/dl (32.0-36.0); MEAN PLT VOLUME 6.9 fl (7.5-11.1); PLATELET COUNT 209 10^3/uL (134-434); RBC 2.75 M/mm3 (3.60-5.2); RDW 14.6 % (11.6-15.6); WHITE BLOOD COUNT 7.8 K/mm3 (4.0-10.0)
[2021-09-17 07:16] LABS: CALCIUM 8.3 mg/dL (8.5-10.1)
[2021-09-17 07:17] LABS: ALBUMIN 2.5 g/dl (3.4-5.0); BLOOD UREA NITROGEN 88.2 mg/dL (7-18)
[2021-09-17 07:20] LABS: CREATININE 4.5 mg/dL (0.55-1.3)
[2021-09-17 07:22] LABS: BILIRUBIN,TOTAL 0.3 mg/dL (0.2-1); TOT PROT 5.1 g/dl (6.4-8.2)
[2021-09-17] MEDS ORDERED: SODIUM CHLORIDE 0.45% 1,000 ML IV SCH ×2 (09:45→14:29)
[2021-09-17] MEDS: CARVEDILOL 3.125 MG TABLET (FP) PO SCH (09:54)
[2021-09-17] MEDS ORDERED: SODIUM BICARBONATE 650 MG TABLET PO SCH (10:00)
[2021-09-17] MEDS ORDERED: CARVEDILOL 3.125 MG TABLET (FP) PO ONE ×2 (14:20→14:38)
[2021-09-17] MEDS ORDERED: CARVEDILOL 6.25 MG TABLET (FP) PO SCH ×3 (16:00→22:00)
[2021-09-17 18:01] VITALS: BP 148/92; PULSE 75; TEMP 97.7
[2021-09-17] MEDS ORDERED: INSULIN (LEVEMIR) 100 UNITS/ML UNITS SQ SCH (22:00)
== END 2021-09-17 20:07 | disposition home or self-care (01) | DRG 683 ==
LOC: JER 13:33 → JERBED 15:56 → J4W 09-16 00:11
PROVIDERS: ADMIT Internal Medicine; ATTEND Internal Medicine
PROC: 30233N1 Transfusion of Nonautologous Red Blood Cells into Peripheral Vein, Percutaneous Approach (ICD-10-PCS; principal; 2021-09-15)
DX: N17.9 Acute kidney failure, unspecified (principal); I13.11 Hypertensive heart and chronic kidney disease without heart failure, with stage 5 chronic kidney disease, or end stage renal disease; I16.1 Hypertensive emergency; E78.5 Hyperlipidemia, unspecified; N18.5 Chronic kidney disease, stage 5; E11.319 Type 2 diabetes mellitus with unspecified diabetic retinopathy without macular edema; D63.1 Anemia in chronic kidney disease; R79.89 Other specified abnormal findings of blood chemistry; R55 Syncope and collapse; E11.65 Type 2 diabetes mellitus with hyperglycemia; E11.22 Type 2 diabetes mellitus with diabetic chronic kidney disease; E87.5 Hyperkalemia; E86.0 Dehydration; R51.9 Headache, unspecified; R11.2 Nausea with vomiting, unspecified
CPT/HCPCS: 36415; 36430; 71045-TC-FY; 76775-TC; 76856-TC; 80053; 80061; 81003; 82272; 82533; 82607; 82728; 82746; 82803; 82962; 83010; 83036; 83540; 83550; 83615; 83735; 83970; 84100; 84443; 84484; 85025; 85027; 86850; 86900; 86901; 86922; 87086; 93005; 93010; 93306-TC; 99283-25; C9803-CS; P9058; U0003; U0005

== ENCOUNTER 2021-10-25 17:23 | Inpatient (IN) | payer MEDICARE, OTHER ==
[2021-10-25 19:13] LABS: BASO % 0.9 % (0-2.0); EOS % 3.1 % (0-4.5); HEMATOCRIT 20.4 % (32.4-45.2); HEMOGLOBIN 7.1 GM/dL (10.7-15.3); LYMPH % 24.1 % (8-40); MCH 27.4 pg (25.7-33.7); MEAN CELL VOLUME 78.4 fl (80-96); MEAN PLT VOLUME 6.8 fl (7.5-11.1); MONO % 8.9 % (3.8-10.2); PLATELET COUNT 240 10^3/uL (134-434); RDW 15.1 % (11.6-15.6); WHITE BLOOD COUNT 8.3 K/mm3 (4.0-10.0)
[2021-10-25 19:32] LABS: BLOOD UREA NITROGEN 81.6 mg/dL (7-18); CALCIUM 8.8 mg/dL (8.5-10.1)
[2021-10-25 19:33] LABS: ALBUMIN 3.1 g/dl (3.4-5.0); MAGNESIUM 2.2 mg/dL (1.8-2.4)
[2021-10-25 19:35] LABS: PHOSPHOROUS 5.4 mg/dL (2.5-4.9)
[2021-10-25 19:37] LABS: BILIRUBIN,TOTAL 0.2 mg/dL (0.2-1); TOT PROT 6.4 g/dl (6.4-8.2)
[2021-10-25] MEDS ORDERED: SODIUM ZIRCONIUM CYCLOSILICATE (LOKELMA) 5 GM PACKET ONE (22:10)
[2021-10-25] MEDS ORDERED: SODIUM ZIRCONIUM CYCLOSILICATE (LOKELMA) 5 GM PACKET PO ONE (22:22)
[2021-10-26] MEDS ORDERED: CARVEDILOL 6.25 MG TABLET (FP) ONE ×2 (01:35→09:07)
[2021-10-26] MEDS: CARVEDILOL 6.25 MG TABLET (FP) PO SCH ×3 (01:45→22:45)
[2021-10-26] MEDS: INSULIN SLIDING SCALE (NOVOLOG) 1 VIAL SQ SCH ×4 (07:26→22:45)
[2021-10-26 08:15] LABS: BASO % 1.1 % (0-2.0); EOS % 3.2 % (0-4.5); HEMATOCRIT 20.7 % (32.4-45.2); HEMOGLOBIN 7.3 GM/dL (10.7-15.3); MCH 27.4 pg (25.7-33.7); MCHC 35.1 g/dl (32.0-36.0); MEAN CELL VOLUME 78.1 fl (80-96); MEAN PLT VOLUME 6.9 fl (7.5-11.1); NEUT % 68.7 % (42.8-82.8); PLATELET COUNT 230 10^3/uL (134-434); RBC 2.65 M/mm3 (3.60-5.2); RDW 14.6 % (11.6-15.6); WHITE BLOOD COUNT 6.8 K/mm3 (4.0-10.0)
[2021-10-26 08:30] LABS: CALCIUM 8.8 mg/dL (8.5-10.1)
[2021-10-26 08:31] LABS: ALBUMIN 2.9 g/dl (3.4-5.0); MAGNESIUM 2.1 mg/dL (1.8-2.4)
[2021-10-26 08:34] LABS: BLOOD UREA NITROGEN 74.2 mg/dL (7-18); CREATININE 4.9 mg/dL (0.55-1.3)
[2021-10-26 08:37] LABS: PHOSPHOROUS 5.9 mg/dL (2.5-4.9)
[2021-10-26 08:39] LABS: BILIRUBIN,TOTAL 0.9 mg/dL (0.2-1)
[2021-10-26] MEDS ORDERED: amLODIPine BESYLATE 10 MG TABLET (FP) ONE (09:07)
[2021-10-26] MEDS: amLODIPine BESYLATE 10 MG TABLET (FP) PO SCH (09:11)
[2021-10-26] MEDS ORDERED: SODIUM CHLORIDE 1,000 ML IV SCH (11:00)
[2021-10-26] MEDS ORDERED: SODIUM ZIRCONIUM CYCLOSILICATE (LOKELMA) 5 GM PACKET ONE (14:04)
[2021-10-26] MEDS: SODIUM ZIRCONIUM CYCLOSILICATE (LOKELMA) 5 GM PACKET PO SCH (14:09)
[2021-10-26] MEDS ORDERED: EPOETIN ALFA-EPBX 20,000 UNIT/ML VIAL SQ ONE (16:15)
[2021-10-26 18:31] VITALS: BMI 21.8
[2021-10-26 21:27] LABS: INR 1.09 (0.83-1.09); PROTHROMBIN TIME (PATIENT) 12.6 SEC (9.7-13.0)
[2021-10-26] MEDS ORDERED: SODIUM ZIRCONIUM CYCLOSILICATE (LOKELMA) 5 GM PACKET PO ONE (21:28)
[2021-10-26 21:29] LABS: ACTIVATED PTT 33.3 SECONDS (25.2-36.5)
[2021-10-26] MEDS: ATORVASTATIN CA 40 MG TABLET (FP) PO SCH (22:45)
[2021-10-27 00:02] LABS: EPI CELLS 2 /uL (0-25.1); HYALINE CASTS 0 /uL (0-3.1); URINE APPEARANCE CLEAR; URINE BACTERIA 14 /uL (0-1359); URINE BILIRUBIN NEGATIVE (NEGATIVE); URINE COLOR YELLOW; URINE GLUCOSE (UA) 1+ (NEGATIVE); URINE KETONE NEGATIVE (NEGATIVE); URINE LEUK ESTERASE NEGATIVE (NEGATIVE); URINE NITRITE NEGATIVE (NEGATIVE); URINE PROTEIN 3+ (NEGATIVE); URINE RBC 14 /uL (0-23.9); URINE UROBILINOGEN 0.2 mg/dL (0.2-1.0); URINE WBC 2 /uL (0-25.8)
[2021-10-27] MEDS: INSULIN SLIDING SCALE (NOVOLOG) 1 VIAL SQ SCH ×4 (07:01→21:18)
[2021-10-27] MEDS: CARVEDILOL 6.25 MG TABLET (FP) PO SCH ×2 (09:11→21:17)
[2021-10-27] MEDS: SODIUM ZIRCONIUM CYCLOSILICATE (LOKELMA) 5 GM PACKET PO SCH (09:11)
[2021-10-27] MEDS: amLODIPine BESYLATE 10 MG TABLET (FP) PO SCH (09:11)
[2021-10-27 14:43] LABS: BASO % 0.8 % (0-2.0); EOS % 1.5 % (0-4.5); HEMATOCRIT 23.3 % (32.4-45.2); HEMOGLOBIN 8.2 GM/dL (10.7-15.3); LYMPH % 17.5 % (8-40); MCHC 35.2 g/dl (32.0-36.0); MEAN CELL VOLUME 79.4 fl (80-96); MEAN PLT VOLUME 6.6 fl (7.5-11.1); MONO % 8.6 % (3.8-10.2); NEUT % 71.6 % (42.8-82.8); PLATELET COUNT 190 10^3/uL (134-434); RBC 2.93 M/mm3 (3.60-5.2); RDW 14.8 % (11.6-15.6); WHITE BLOOD COUNT 8.2 K/mm3 (4.0-10.0)
[2021-10-27 15:08] LABS: BLOOD UREA NITROGEN 84.3 mg/dL (7-18)
[2021-10-27 15:09] LABS: ALBUMIN 2.5 g/dl (3.4-5.0)
[2021-10-27 15:11] LABS: CREATININE 5.3 mg/dL (0.55-1.3); PHOSPHOROUS 5.3 mg/dL (2.5-4.9)
[2021-10-27 15:13] LABS: BILIRUBIN,TOTAL 0.3 mg/dL (0.2-1); TOT PROT 5.4 g/dl (6.4-8.2)
[2021-10-27] MEDS: ATORVASTATIN CA 40 MG TABLET (FP) PO SCH (21:17)
[2021-10-27] MEDS: INSULIN (LEVEMIR) 100 UNITS/ML UNITS SQ SCH (21:17)
[2021-10-28] MEDS: INSULIN SLIDING SCALE (NOVOLOG) 1 VIAL SQ SCH ×4 (06:15→21:33)
[2021-10-28] MEDS: INSULIN (LEVEMIR) 100 UNITS/ML UNITS SQ SCH ×2 (06:15→21:33)
[2021-10-28 07:16] LABS: EOS % 2.3 % (0-4.5); HEMATOCRIT 23.9 % (32.4-45.2); HEMOGLOBIN 8.2 GM/dL (10.7-15.3); LYMPH % 22.8 % (8-40); MCH 27.3 pg (25.7-33.7); MCHC 34.2 g/dl (32.0-36.0); MEAN CELL VOLUME 79.7 fl (80-96); MEAN PLT VOLUME 7.1 fl (7.5-11.1); MONO % 10.9 % (3.8-10.2); PLATELET COUNT 202 10^3/uL (134-434); RDW 15.2 % (11.6-15.6); WHITE BLOOD COUNT 8.7 K/mm3 (4.0-10.0)
[2021-10-28 07:45] LABS: BLOOD UREA NITROGEN 86.7 mg/dL (7-18)
[2021-10-28 07:46] LABS: ALBUMIN 2.5 g/dl (3.4-5.0); CALCIUM 8.1 mg/dL (8.5-10.1); MAGNESIUM 2.1 mg/dL (1.8-2.4)
[2021-10-28 07:48] LABS: CREATININE 5.3 mg/dL (0.55-1.3); PHOSPHOROUS 4.8 mg/dL (2.5-4.9)
[2021-10-28 07:49] LABS: BILIRUBIN,TOTAL 0.4 mg/dL (0.2-1)
[2021-10-28 07:50] LABS: TOT PROT 5.4 g/dl (6.4-8.2)
[2021-10-28] MEDS: amLODIPine BESYLATE 10 MG TABLET (FP) PO SCH (10:41)
[2021-10-28] MEDS: SODIUM ZIRCONIUM CYCLOSILICATE (LOKELMA) 5 GM PACKET PO SCH (10:41)
[2021-10-28] MEDS: CARVEDILOL 6.25 MG TABLET (FP) PO SCH ×2 (10:41→21:33)
[2021-10-28] MEDS: ATORVASTATIN CA 40 MG TABLET (FP) PO SCH (21:33)
[2021-10-29] MEDS: INSULIN SLIDING SCALE (NOVOLOG) 1 VIAL SQ SCH ×4 (06:02→21:42)
[2021-10-29] MEDS: INSULIN (LEVEMIR) 100 UNITS/ML UNITS SQ SCH ×2 (06:07→21:41)
[2021-10-29 07:36] LABS: BASO % 0.9 % (0-2.0); EOS % 2.2 % (0-4.5); HEMOGLOBIN 8.4 GM/dL (10.7-15.3); LYMPH % 20.5 % (8-40); MCH 27.6 pg (25.7-33.7); MCHC 34.9 g/dl (32.0-36.0); MEAN CELL VOLUME 79.2 fl (80-96); MONO % 9.7 % (3.8-10.2); NEUT % 66.7 % (42.8-82.8); PLATELET COUNT 202 10^3/uL (134-434); RBC 3.03 M/mm3 (3.60-5.2); RDW 15.3 % (11.6-15.6); WHITE BLOOD COUNT 9.5 K/mm3 (4.0-10.0)
[2021-10-29 07:51] LABS: CALCIUM 8.6 mg/dL (8.5-10.1)
[2021-10-29 07:52] LABS: ALBUMIN 2.6 g/dl (3.4-5.0); BLOOD UREA NITROGEN 89.6 mg/dL (7-18); MAGNESIUM 2.1 mg/dL (1.8-2.4)
[2021-10-29 07:55] LABS: CREATININE 5.3 mg/dL (0.55-1.3)
[2021-10-29 07:56] LABS: BILIRUBIN,TOTAL 0.3 mg/dL (0.2-1); TOT PROT 5.4 g/dl (6.4-8.2)
[2021-10-29] MEDS: CARVEDILOL 6.25 MG TABLET (FP) PO SCH ×2 (09:01→21:37)
[2021-10-29] MEDS: amLODIPine BESYLATE 10 MG TABLET (FP) PO SCH (09:01)
[2021-10-29] MEDS: SODIUM ZIRCONIUM CYCLOSILICATE (LOKELMA) 5 GM PACKET PO SCH (09:01)
[2021-10-29] MEDS: ATORVASTATIN CA 40 MG TABLET (FP) PO SCH (21:37)
[2021-10-30] MEDS: INSULIN SLIDING SCALE (NOVOLOG) 1 VIAL SQ SCH ×4 (06:20→21:46)
[2021-10-30] MEDS: INSULIN (LEVEMIR) 100 UNITS/ML UNITS SQ SCH ×2 (06:20→21:50)
[2021-10-30 06:55] LABS: BASO % 0.9 % (0-2.0); EOS % 2.4 % (0-4.5); HEMATOCRIT 23.1 % (32.4-45.2); HEMOGLOBIN 7.9 GM/dL (10.7-15.3); LYMPH % 19.3 % (8-40); MCH 27.4 pg (25.7-33.7); MCHC 34.4 g/dl (32.0-36.0); MEAN CELL VOLUME 79.7 fl (80-96); MONO % 9.3 % (3.8-10.2); NEUT % 68.1 % (42.8-82.8); PLATELET COUNT 199 10^3/uL (134-434); RBC 2.89 M/mm3 (3.60-5.2); RDW 15.4 % (11.6-15.6); WHITE BLOOD COUNT 8.9 K/mm3 (4.0-10.0)
[2021-10-30 07:27] LABS: ALBUMIN 2.5 g/dl (3.4-5.0); CALCIUM 8.6 mg/dL (8.5-10.1)
[2021-10-30 07:28] LABS: BLOOD UREA NITROGEN 90.8 mg/dL (7-18); MAGNESIUM 2.1 mg/dL (1.8-2.4)
[2021-10-30 07:30] LABS: CREATININE 5.2 mg/dL (0.55-1.3); PHOSPHOROUS 4.5 mg/dL (2.5-4.9)
[2021-10-30 07:32] LABS: BILIRUBIN,TOTAL 0.4 mg/dL (0.2-1); TOT PROT 5.3 g/dl (6.4-8.2)
[2021-10-30] MEDS: amLODIPine BESYLATE 10 MG TABLET (FP) PO SCH (09:16)
[2021-10-30] MEDS: CARVEDILOL 6.25 MG TABLET (FP) PO SCH ×2 (09:16→21:33)
[2021-10-30] MEDS: SODIUM ZIRCONIUM CYCLOSILICATE (LOKELMA) 5 GM PACKET PO SCH (10:52)
[2021-10-30] MEDS ORDERED: SODIUM CHLORIDE 250 ML IV PRN ×2 (12:12→14:02)
[2021-10-30] MEDS ORDERED: LIDOCAINE HCL 1%, 10 MG/ML (20ML VIAL) ONE (12:21)
[2021-10-30] MEDS ORDERED: HEPARIN NA (PORCINE) 5,000 UNITS/ML 1ML VIAL ONE (12:21)
[2021-10-30] MEDS ORDERED: MIDAZOLAM HCL 2 MG/2 ML SINGLE DOSE VIAL ONE (13:05)
[2021-10-30] MEDS ORDERED: PROPOFOL 20 ML ONE (13:23)
[2021-10-30] MEDS ORDERED: ceFAZolin SODIUM 1 GM VIAL IVPB ONE ×2 (13:27→13:28)
[2021-10-30] MEDS ORDERED: LIDOCAINE HCL 1%, 10 MG/ML (20ML VIAL) NR ONE ×3 (13:30)
[2021-10-30] MEDS ORDERED: HEPARIN NA (PORCINE) 5,000 UNITS/ML 1ML VIAL SQ ONE ×2 (13:32)
[2021-10-30] MEDS ORDERED: ONDANSETRON 4 MG/2 ML VIAL IVPUSH PRN ×2 (13:34→14:02)
[2021-10-30] MEDS ORDERED: oxyCODONE HCL 5 MG TABLET PO PRN ×2 (13:34→14:02)
[2021-10-30] MEDS: ATORVASTATIN CA 40 MG TABLET (FP) PO SCH (21:33)
[2021-10-31] MEDS: INSULIN SLIDING SCALE (NOVOLOG) 1 VIAL SQ SCH ×4 (06:31→22:41)
[2021-10-31] MEDS: INSULIN (LEVEMIR) 100 UNITS/ML UNITS SQ SCH ×2 (06:31→22:41)
[2021-10-31] MEDS ORDERED: ONDANSETRON 4 MG/2 ML VIAL IVPUSH ONE (08:00)
[2021-10-31 08:16] LABS: HEMATOCRIT 24.8 % (32.4-45.2); HEMOGLOBIN 8.6 GM/dL (10.7-15.3); MCH 27.6 pg (25.7-33.7); MCHC 34.6 g/dl (32.0-36.0); MEAN CELL VOLUME 79.7 fl (80-96); MEAN PLT VOLUME 7.4 fl (7.5-11.1); PLATELET COUNT 218 10^3/uL (134-434); RBC 3.11 M/mm3 (3.60-5.2); RDW 15.3 % (11.6-15.6); WHITE BLOOD COUNT 8.8 K/mm3 (4.0-10.0)
[2021-10-31] MEDS: amLODIPine BESYLATE 10 MG TABLET (FP) PO SCH (09:02)
[2021-10-31] MEDS: CARVEDILOL 6.25 MG TABLET (FP) PO SCH ×2 (09:02→22:40)
[2021-10-31] MEDS ORDERED: SODIUM ZIRCONIUM CYCLOSILICATE (LOKELMA) 5 GM PACKET PO SCH (10:00)
[2021-10-31 10:14] LABS: ALBUMIN 2.7 g/dl (3.4-5.0); BILIRUBIN,TOTAL 0.2 mg/dL (0.2-1); BLOOD UREA NITROGEN 86.5 mg/dL (7-18); CALCIUM 8.8 mg/dL (8.5-10.1); CREATININE 5.4 mg/dL (0.55-1.3); MAGNESIUM 2.3 mg/dL (1.8-2.4); PHOSPHOROUS 4.7 mg/dL (2.5-4.9); TOT PROT 5.8 g/dl (6.4-8.2)
[2021-10-31] MEDS: ATORVASTATIN CA 40 MG TABLET (FP) PO SCH (22:40)
[2021-11-01] MEDS: INSULIN (LEVEMIR) 100 UNITS/ML UNITS SQ SCH ×2 (06:28→22:08)
[2021-11-01] MEDS: INSULIN SLIDING SCALE (NOVOLOG) 1 VIAL SQ SCH ×5 (06:28→22:09)
[2021-11-01 08:12] LABS: BASO % 0.7 % (0-2.0); EOS % 2.1 % (0-4.5); HEMATOCRIT 23.7 % (32.4-45.2); HEMOGLOBIN 8.3 GM/dL (10.7-15.3); LYMPH % 18.7 % (8-40); MCH 27.5 pg (25.7-33.7); MCHC 35.2 g/dl (32.0-36.0); MEAN CELL VOLUME 78.1 fl (80-96); MEAN PLT VOLUME 7.3 fl (7.5-11.1); MONO % 11.4 % (3.8-10.2); NEUT % 67.1 % (42.8-82.8); PLATELET COUNT 200 10^3/uL (134-434); RBC 3.03 M/mm3 (3.60-5.2); RDW 15.4 % (11.6-15.6); WHITE BLOOD COUNT 8.6 K/mm3 (4.0-10.0)
[2021-11-01 08:22] LABS: CALCIUM 8.2 mg/dL (8.5-10.1)
[2021-11-01 08:23] LABS: ALBUMIN 2.4 g/dl (3.4-5.0); MAGNESIUM 1.7 mg/dL (1.8-2.4)
[2021-11-01 08:26] LABS: CREATININE 4.1 mg/dL (0.55-1.3); PHOSPHOROUS 3.9 mg/dL (2.5-4.9)
[2021-11-01 08:27] LABS: BILIRUBIN,TOTAL 0.5 mg/dL (0.2-1); TOT PROT 5.3 g/dl (6.4-8.2)
[2021-11-01 08:28] LABS: BLOOD UREA NITROGEN 53.4 mg/dL (7-18)
[2021-11-01] MEDS: CARVEDILOL 6.25 MG TABLET (FP) PO SCH ×2 (09:17→22:08)
[2021-11-01] MEDS: amLODIPine BESYLATE 10 MG TABLET (FP) PO SCH (09:17)
[2021-11-01] MEDS ORDERED: SODIUM CHLORIDE 250 ML IV PRN (14:24)
[2021-11-01] MEDS ORDERED: MAGNESIUM OXIDE 400 MG TABLET (FP) PO ONE ×2 (19:49→22:30)
[2021-11-01] MEDS: ATORVASTATIN CA 40 MG TABLET (FP) PO SCH (22:08)
[2021-11-02] MEDS: INSULIN SLIDING SCALE (NOVOLOG) 1 VIAL SQ SCH ×4 (06:29→21:16)
[2021-11-02] MEDS: INSULIN (LEVEMIR) 100 UNITS/ML UNITS SQ SCH ×2 (06:55→21:16)
[2021-11-02 08:29] LABS: HEMATOCRIT 23.7 % (32.4-45.2); MCHC 33.6 g/dl (32.0-36.0); MEAN CELL VOLUME 80.2 fl (80-96); MEAN PLT VOLUME 7.4 fl (7.5-11.1); PLATELET COUNT 175 10^3/uL (134-434); RBC 2.95 M/mm3 (3.60-5.2); RDW 15.7 % (11.6-15.6); WHITE BLOOD COUNT 7.4 K/mm3 (4.0-10.0)
[2021-11-02 08:54] LABS: BLOOD UREA NITROGEN 69.2 mg/dL (7-18)
[2021-11-02 08:57] LABS: CREATININE 4.4 mg/dL (0.55-1.3)
[2021-11-02] MEDS ORDERED: HEPARIN NA (PORCINE) 5,000 UNITS/ML 1ML VIAL IVPUSH ONE (10:00)
[2021-11-02] MEDS ORDERED: EPOETIN ALFA-EPBX 4,000 UNIT/ML VIAL SQ ONE (10:00)
[2021-11-02] MEDS: CARVEDILOL 6.25 MG TABLET (FP) PO SCH ×2 (11:22→21:13)
[2021-11-02] MEDS: amLODIPine BESYLATE 10 MG TABLET (FP) PO SCH (11:22)
[2021-11-02] MEDS: HEPARIN NA (PORCINE) 5,000 UNITS/ML 1ML VIAL SQ SCH ×2 (12:03→21:13)
[2021-11-02] MEDS: ATORVASTATIN CA 40 MG TABLET (FP) PO SCH (21:13)
[2021-11-03] MEDS: INSULIN SLIDING SCALE (NOVOLOG) 1 VIAL SQ SCH ×3 (06:11→16:54)
[2021-11-03] MEDS: INSULIN (LEVEMIR) 100 UNITS/ML UNITS SQ SCH (06:11)
[2021-11-03 07:24] LABS: HEMATOCRIT 24.5 % (32.4-45.2); HEMOGLOBIN 8.3 GM/dL (10.7-15.3); MEAN CELL VOLUME 79.6 fl (80-96); MEAN PLT VOLUME 7.5 fl (7.5-11.1); PLATELET COUNT 159 10^3/uL (134-434); RBC 3.07 M/mm3 (3.60-5.2); RDW 15.7 % (11.6-15.6); WHITE BLOOD COUNT 7.8 K/mm3 (4.0-10.0)
[2021-11-03 07:52] LABS: CALCIUM 8.1 mg/dL (8.5-10.1)
[2021-11-03 07:53] LABS: BLOOD UREA NITROGEN 46.9 mg/dL (7-18)
[2021-11-03 07:56] LABS: CREATININE 3.7 mg/dL (0.55-1.3)
[2021-11-03 08:07] LABS: MAGNESIUM 1.9 mg/dL (1.8-2.4)
[2021-11-03 08:11] LABS: PHOSPHOROUS 4.2 mg/dL (2.5-4.9)
[2021-11-03] MEDS: HEPARIN NA (PORCINE) 5,000 UNITS/ML 1ML VIAL SQ SCH (09:20)
[2021-11-03] MEDS: CARVEDILOL 6.25 MG TABLET (FP) PO SCH (09:20)
[2021-11-03] MEDS: amLODIPine BESYLATE 10 MG TABLET (FP) PO SCH (09:20)
[2021-11-03 15:45] VITALS: BP 136/71; PULSE 75; RESP 18; TEMP 98.7
== END 2021-11-03 19:12 | disposition home or self-care (01) | DRG 682 ==
LOC: JER 17:23 → INTOOBSV 21:08 → JERBED 21:08 → UNDOADMOB 21:08 → JERBED 23:12 → J4W 10-26 18:06 → OBSVTOIN 10-28 17:42 → J4S 10-30 13:54 → J4W 10-30 13:55
PROVIDERS: ADMIT Internal Medicine; ATTEND Internal Medicine
PROC: 30233N1 Transfusion of Nonautologous Red Blood Cells into Peripheral Vein, Percutaneous Approach (ICD-10-PCS; 2021-10-27)
PROC: 02H633Z Insertion of Infusion Device into Right Atrium, Percutaneous Approach (ICD-10-PCS; principal; 2021-10-30 13:00)
PROC: 5A1D70Z Performance of Urinary Filtration, Intermittent, Less than 6 Hours Per Day (ICD-10-PCS; 2021-10-31)
PROC: 5A1D70Z Performance of Urinary Filtration, Intermittent, Less than 6 Hours Per Day (ICD-10-PCS; 2021-11-02)
DX: I12.0 Hypertensive chronic kidney disease with stage 5 chronic kidney disease or end stage renal disease (principal); N18.6 End stage renal disease; E11.22 Type 2 diabetes mellitus with diabetic chronic kidney disease; E78.5 Hyperlipidemia, unspecified; E87.5 Hyperkalemia; D63.8 Anemia in other chronic diseases classified elsewhere; E11.319 Type 2 diabetes mellitus with unspecified diabetic retinopathy without macular edema; Z99.2 Dependence on renal dialysis; Z89.422 Acquired absence of other left toe(s); R42 Dizziness and giddiness
CPT/HCPCS: 0241U-QW; 36415; 36430; 71045-TC-FY; 71046-TC-FY; 76000-TC-FY; 80048; 80053; 81003; 82728; 82962; 83540; 83550; 83735; 84100; 85025; 85027; 85610; 85730; 86704; 86705; 86803; 86850; 86900; 86901; 86922; 87340; 87517; 87902; 93005; 93010; 94760; 99285-25; G0378; J1644; P9058; Q5106

== ENCOUNTER 2021-12-23 10:50 | Observation (INO) | payer MEDICARE, OTHER ==
[2021-12-23 12:56] LABS: BASO % 0.8 % (0-2.0); EOS % 0.7 % (0-4.5); HEMOGLOBIN 12.1 GM/dL (10.7-15.3); LYMPH % 6.1 % (8-40); MCH 26.9 pg (25.7-33.7); MCHC 32.8 g/dl (32.0-36.0); MEAN CELL VOLUME 82.1 fl (80-96); MEAN PLT VOLUME 7.3 fl (7.5-11.1); MONO % 2.8 % (3.8-10.2); NEUT % 89.6 % (42.8-82.8); PLATELET COUNT 245 10^3/uL (134-434); RDW 16.5 % (11.6-15.6); WHITE BLOOD COUNT 11.3 K/mm3 (4.0-10.0)
[2021-12-23 13:09] LABS: CHLORIDE 109 mmol/L (98-107); SODIUM 143 mmol/L (136-145)
[2021-12-23 13:12] LABS: CALCIUM 9.3 mg/dL (8.5-10.1); CO2 27 mmol/L (21-32); GLUCOSE,RANDOM 257 mg/dL (74-106)
[2021-12-23 13:13] LABS: BLOOD UREA NITROGEN 51.7 mg/dL (7-18); MAGNESIUM 2.6 mg/dL (1.8-2.4)
[2021-12-23 13:15] LABS: CREATININE 5.2 mg/dL (0.55-1.3); SGOT/AST 26 U/L (15-37); SGPT/ALT 18 U/L (13-61)
[2021-12-23 13:16] LABS: BILIRUBIN,TOTAL 0.4 mg/dL (0.2-1); TOT PROT 6.8 g/dl (6.4-8.2)
[2021-12-23 13:18] LABS: ALK PHOS 88 U/L (45-117)
[2021-12-23 13:20] LABS: ANION GAP 7 MMOL/L (8-16)
[2021-12-23 15:05] LABS: CALCIUM 9.4 mg/dL (8.5-10.1)
[2021-12-23 15:06] LABS: BLOOD UREA NITROGEN 54.9 mg/dL (7-18)
[2021-12-23 15:09] LABS: CREATININE 5.4 mg/dL (0.55-1.3)
[2021-12-23] MEDS ORDERED: CALCIUM GLUCONATE 10% - 1,000 MG/10 ML VIAL IVPB ONE (15:09)
[2021-12-23] MEDS ORDERED: DEXTROSE 50%-WATER - 25 GM/50 ML VIAL IVPUSH ONE (15:09)
[2021-12-23] MEDS ORDERED: INSULIN REGULAR HUMAN 100 UNITS/ML *VIAL IVPUSH ONE (15:10)
[2021-12-23] MEDS ORDERED: ALBUTEROL SO4 0.5 % INH SOLN 2.5 MG/0.5 ML VIAL.NEB. NEB ONE ×2 (15:11→17:46)
[2021-12-23] MEDS ORDERED: SODIUM ZIRCONIUM CYCLOSILICATE (LOKELMA) 5 GM PACKET PO ONE (15:38)
[2021-12-23] MEDS ORDERED: DEXTROSE 50%-WATER 25 GM/50 ML DISP.SYRIN ONE (17:46)
[2021-12-23] MEDS ORDERED: INSULIN REGULAR HUMAN 100 UNITS/ML *VIAL ONE (17:46)
[2021-12-23] MEDS ORDERED: CALCIUM GLUCONATE 10% - 1,000 MG/10 ML VIAL ONE (17:46)
[2021-12-23] MEDS ORDERED: SODIUM ZIRCONIUM CYCLOSILICATE (LOKELMA) 5 GM PACKET ONE (17:47)
[2021-12-23 19:08] LABS: EPI CELLS 12 /uL (0-25.1); HYALINE CASTS 1 /uL (0-3.1); URINE APPEARANCE CLEAR; URINE BACTERIA 67 /uL (0-1359); URINE BILIRUBIN NEGATIVE (NEGATIVE); URINE COLOR YELLOW; URINE GLUCOSE (UA) 2+ (NEGATIVE); URINE KETONE NEGATIVE (NEGATIVE); URINE LEUK ESTERASE NEGATIVE (NEGATIVE); URINE NITRITE NEGATIVE (NEGATIVE); URINE PROTEIN 4+ (NEGATIVE); URINE RBC 18 /uL (0-23.9); URINE UROBILINOGEN 0.2 mg/dL (0.2-1.0); URINE WBC 5 /uL (0-25.8)
[2021-12-24] MEDS: HEPARIN NA (PORCINE) 5,000 UNITS/ML 1ML VIAL SQ SCH ×3 (05:47→21:44)
[2021-12-24] MEDS ORDERED: INSULIN SLIDING SCALE (NOVOLOG) 1 VIAL SQ SCH (07:00)
[2021-12-24 08:39] LABS: BASO % 0.7 % (0-2.0); HEMATOCRIT 31.8 % (32.4-45.2); HEMOGLOBIN 10.2 GM/dL (10.7-15.3); LYMPH % 21.4 % (8-40); MCH 26.4 pg (25.7-33.7); MCHC 32.1 g/dl (32.0-36.0); MEAN CELL VOLUME 82.2 fl (80-96); MEAN PLT VOLUME 7.7 fl (7.5-11.1); MONO % 7.9 % (3.8-10.2); PLATELET COUNT 223 10^3/uL (134-434); RBC 3.86 M/mm3 (3.60-5.2); RDW 16.3 % (11.6-15.6); WHITE BLOOD COUNT 8.2 K/mm3 (4.0-10.0)
[2021-12-24 09:06] LABS: ALBUMIN 2.8 g/dl (3.4-5.0); BLOOD UREA NITROGEN 67.9 mg/dL (7-18); PHOSPHOROUS 5.1 mg/dL (2.5-4.9)
[2021-12-24 09:07] LABS: CALCIUM 8.8 mg/dL (8.5-10.1); TOT PROT 5.7 g/dl (6.4-8.2)
[2021-12-24 09:08] LABS: BILIRUBIN,TOTAL 0.3 mg/dL (0.2-1); MAGNESIUM 2.6 mg/dL (1.8-2.4)
[2021-12-24 09:09] LABS: CREATININE 5.9 mg/dL (0.55-1.3)
[2021-12-24] MEDS ORDERED: FLU VACC QS2022-23(6MOS UP)/PF 60 MCG/0.5 ML SYRINGE IM ONE (10:00)
[2021-12-24] MEDS ORDERED: LISINOPRIL 10 MG TABLET PO SCH (10:00)
[2021-12-24] MEDS ORDERED: SODIUM CHLORIDE 250 ML IV PRN (10:46)
[2021-12-24] MEDS: CARVEDILOL 25 MG TABLET (FP) PO SCH ×2 (11:13→21:44)
[2021-12-24] MEDS: FUROSEMIDE 20 MG TABLET (FP) PO SCH (11:13)
[2021-12-24] MEDS: amLODIPine BESYLATE 10 MG TABLET (FP) PO SCH (11:13)
[2021-12-24] MEDS: INSULIN SLIDING SCALE (NOVOLOG) 1 VIAL SQ SCH ×2 (11:17→17:52)
[2021-12-24] MEDS ORDERED: EPOETIN ALFA-EPBX 3,000 UNIT/ML VIAL SQ ONE (13:30)
[2021-12-24 16:08] VITALS: BMI 21.0
[2021-12-24] MEDS ORDERED: ATORVASTATIN CA 40 MG TABLET (FP) PO SCH (22:00)
[2021-12-24 22:35] LABS: HEPATITIS B SURFACE AG CONFIRM CONFIRMED (NONREACTIVE)
[2021-12-25] MEDS: HEPARIN NA (PORCINE) 5,000 UNITS/ML 1ML VIAL SQ SCH ×2 (06:21→14:08)
[2021-12-25] MEDS: INSULIN SLIDING SCALE (NOVOLOG) 1 VIAL SQ SCH ×3 (06:55→17:28)
[2021-12-25] MEDS ORDERED: INSULIN (LEVEMIR) 100 UNITS/ML UNITS SQ SCH (07:00)
[2021-12-25 08:57] LABS: HEMATOCRIT 31.6 % (32.4-45.2); HEMOGLOBIN 10.6 GM/dL (10.7-15.3); MCH 27.4 pg (25.7-33.7); MCHC 33.7 g/dl (32.0-36.0); MEAN CELL VOLUME 81.3 fl (80-96); MEAN PLT VOLUME 7.3 fl (7.5-11.1); PLATELET COUNT 214 10^3/uL (134-434); RBC 3.89 M/mm3 (3.60-5.2); RDW 16.1 % (11.6-15.6); WHITE BLOOD COUNT 7.1 K/mm3 (4.0-10.0)
[2021-12-25 09:37] LABS: ALBUMIN 2.7 g/dl (3.4-5.0); CALCIUM 8.5 mg/dL (8.5-10.1)
[2021-12-25 09:38] LABS: MAGNESIUM 2.1 mg/dL (1.8-2.4)
[2021-12-25 09:41] LABS: CREATININE 3.9 mg/dL (0.55-1.3); PHOSPHOROUS 4.5 mg/dL (2.5-4.9)
[2021-12-25 09:42] LABS: BILIRUBIN,TOTAL 0.4 mg/dL (0.2-1); TOT PROT 5.8 g/dl (6.4-8.2)
[2021-12-25] MEDS: CARVEDILOL 25 MG TABLET (FP) PO SCH (10:46)
[2021-12-25] MEDS: amLODIPine BESYLATE 10 MG TABLET (FP) PO SCH (10:46)
[2021-12-25] MEDS: FUROSEMIDE 20 MG TABLET (FP) PO SCH (10:46)
[2021-12-25] MEDS ORDERED: SODIUM CHLORIDE 250 ML IV PRN (12:39)
[2021-12-25 18:52] VITALS: BP 156/90; PULSE 75; RESP 18; TEMP 98.8
[2021-12-26] MEDS ORDERED: EPOETIN ALFA-EPBX 4,000 UNIT/ML VIAL SQ ONE (12:39)
[2021-12-27] MEDS ORDERED: ERGOCALCIFEROL (VIT D2) 50,000 UNIT (1.25 MG) CAPSULE PO SCH (10:00)
== END 2021-12-25 18:53 | disposition home or self-care (01) ==
LOC: JER 10:50 → JERBED 15:13 → UNDOADMOB 15:13 → INTOOBSV 15:13 → J4W 18:51 → JERBED 18:51 → J4W 12-24 13:28 → JERBED 12-24 13:28
PROVIDERS: ADMIT Internal Medicine; ATTEND Internal Medicine
PROC: 3E0F7GC Introduction of Other Therapeutic Substance into Respiratory Tract, Via Natural or Artificial Opening (ICD-10-PCS; principal; 2021-12-24)
PROC: 3E033GC Introduction of Other Therapeutic Substance into Peripheral Vein, Percutaneous Approach (ICD-10-PCS; 2021-12-24)
PROC: 3E023GC Introduction of Other Therapeutic Substance into Muscle, Percutaneous Approach (ICD-10-PCS; 2021-12-24)
PROC: 3E013VG Introduction of Insulin into Subcutaneous Tissue, Percutaneous Approach (ICD-10-PCS; 2021-12-24)
PROC: 3E033VG Introduction of Insulin into Peripheral Vein, Percutaneous Approach (ICD-10-PCS; 2021-12-24)
PROC: 3E0234Z Introduction of Serum, Toxoid and Vaccine into Muscle, Percutaneous Approach (ICD-10-PCS; 2021-12-24)
PROC: 3E0337Z Introduction of Electrolytic and Water Balance Substance into Peripheral Vein, Percutaneous Approach (ICD-10-PCS; 2021-12-24)
DX: E11.22 Type 2 diabetes mellitus with diabetic chronic kidney disease (principal); I13.10 Hypertensive heart and chronic kidney disease without heart failure, with stage 1 through stage 4 chronic kidney disease, or unspecified chronic kidney disease; E11.319 Type 2 diabetes mellitus with unspecified diabetic retinopathy without macular edema; E11.65 Type 2 diabetes mellitus with hyperglycemia; E87.5 Hyperkalemia; E78.5 Hyperlipidemia, unspecified; N18.9 Chronic kidney disease, unspecified; N17.9 Acute kidney failure, unspecified; I10 Essential (primary) hypertension; R20.2 Paresthesia of skin; Z99.2 Dependence on renal dialysis; D64.9 Anemia, unspecified; G62.9 Polyneuropathy, unspecified; R42 Dizziness and giddiness; K29.70 Gastritis, unspecified, without bleeding; Z88.8 Allergy status to other drugs, medicaments and biological substances
CPT/HCPCS: 36415; 71045-TC-FY; 80048; 80053; 81003; 82962; 83735; 84100; 84484; 85025; 85027; 86803; 87040; 87086; 87340; 93005; 93010; 94640; 96361; 96372; 96374; 96375; 99285-25; C9803-CS; G0378; J1644; Q2036; Q5106; U0003; U0005

== ENCOUNTER 2022-01-08 04:29 | Day surgery (SDC) | payer MEDICARE, OTHER ==
[2022-01-07 17:29] VITALS: BMI 21.2
[~2022-01-08 04:29] MED LIST: HEPARIN NA (PORCINE) 5,000 UNITS/ML 1ML VIAL SQ ONE; LIDOCAINE HCL 1%, 10 MG/ML (20ML VIAL) INF ONE
[2022-01-08 07:16] LABS: INR 1.15 (0.83-1.09); PROTHROMBIN TIME (PATIENT) 13.3 SEC (9.7-13.0)
[2022-01-08] MEDS ORDERED: DEXMEDETOMIDINE HCL 200 MCG/2 ML IVPB ONE (07:16)
[2022-01-08] MEDS ORDERED: ACETAMINOPHEN INJECTION 200 ML IVPB ONE (07:16)
[2022-01-08] MEDS ORDERED: LIDOCAINE HCL 1%, 10 MG/ML (20ML VIAL) ONE (07:18)
[2022-01-08] MEDS ORDERED: PAPAVERINE HCL 30 MG/1 ML 10 ML VIAL NR ONE (07:18)
[2022-01-08] MEDS ORDERED: HEPARIN NA (PORCINE) 5,000 UNITS/ML 1ML VIAL ONE (07:18)
[2022-01-08] MEDS ORDERED: KETAMINE HCL 500 MG/10 ML VIAL ONE (07:30)
[2022-01-08] MEDS ORDERED: MIDAZOLAM HCL 2 MG/2 ML SINGLE DOSE VIAL ONE (07:30)
[2022-01-08] MEDS ORDERED: ceFAZolin SODIUM 1 GM VIAL IVPB ONE (08:23)
[2022-01-08] MEDS ORDERED: LIDOCAINE HCL 1%, 10 MG/ML (20ML VIAL) INF ONE ×2 (08:27)
[2022-01-08] MEDS ORDERED: HEPARIN NA (PORCINE) 5,000 UNITS/ML 1ML VIAL SQ ONE (08:33)
[2022-01-08] MEDS ORDERED: ROCURONIUM BROMIDE 50 MG/5 ML SYRINGE ONE (08:34)
[2022-01-08] MEDS ORDERED: ONDANSETRON 4 MG/2 ML VIAL ONE (09:50)
[2022-01-08] MEDS ORDERED: ONDANSETRON 4 MG/2 ML VIAL IVPUSH PRN (10:20)
[2022-01-08 12:30] VITALS: RESP 18
[2022-01-08 14:17] VITALS: BP 196/100
[2022-01-08 14:21] VITALS: PULSE 64; TEMP 97.8
== END 2022-01-08 13:55 | disposition home or self-care (01) ==
LOC: JASU-SURG 04:29
PROVIDERS: ATTEND Surgery
PROC: 03180ZD Bypass Left Brachial Artery to Upper Arm Vein, Open Approach (ICD-10-PCS; principal; 2022-01-08 08:00)
DX: I12.0 Hypertensive chronic kidney disease with stage 5 chronic kidney disease or end stage renal disease (principal); E11.22 Type 2 diabetes mellitus with diabetic chronic kidney disease; N18.6 End stage renal disease; Z99.2 Dependence on renal dialysis
CPT/HCPCS: 36415; 82962; 84132; 85610; 94760; J1644

== ENCOUNTER 2022-03-23 13:27 | Emergency (ER) | payer MEDICARE, OTHER ==
[2022-03-23 13:36] VITALS: BP 174/105; PULSE 73; RESP 18; TEMP 97.8; BMI 21.2
== END 2022-03-23 18:50 | disposition home or self-care (01) ==
LOC: JER 13:27
DX: U07.1 COVID-19 (principal)
CPT/HCPCS: 0241U-QW; 99283-25

== ENCOUNTER 2022-04-04 04:29 | Day surgery (SDC) | payer MEDICARE ==
[2022-04-02 12:00] VITALS: BMI 27.9
[2022-04-04] MEDS ORDERED: LIDOCAINE HCL 1%, 10 MG/ML (20ML VIAL) ONE (14:54)
[2022-04-04] MEDS ORDERED: HEPARIN NA (PORCINE) 5,000 UNITS/ML 1ML VIAL ONE (14:54)
[2022-04-04] MEDS ORDERED: MIDAZOLAM HCL 2 MG/2 ML SINGLE DOSE VIAL ONE (15:41)
[2022-04-04] MEDS ORDERED: PROPOFOL 20 ML ONE (15:42)
[2022-04-04] MEDS ORDERED: LIDOCAINE HCL 1%, 10 MG/ML (20ML VIAL) NR ONE (15:55)
[2022-04-04] MEDS ORDERED: METOPROLOL TARTRATE 5 MG/5 ML VIAL ONE ×2 (16:22→16:30)
[2022-04-04] MEDS ORDERED: hydrALAZINE HCL 20 MG/ML VIAL ONE (16:48)
[2022-04-04] MEDS ORDERED: oxyCODONE HCL 5 MG TABLET PO PRN (17:39)
[2022-04-04] MEDS ORDERED: LACTATED RINGERS SOLUTION 1,000 ML IV SCH (17:45)
[2022-04-04 18:11] VITALS: PULSE 67
[2022-04-04] MEDS ORDERED: oxyCODONE HCL 5 MG TABLET ONE (18:56)
[2022-04-04 19:02] VITALS: BP 134/68; RESP 18; TEMP 97.2
== END 2022-04-04 19:25 | disposition home or self-care (01) ==
LOC: JASU-SURG 04:29
PROVIDERS: ATTEND Surgery
PROC: 03160ZD Bypass Left Axillary Artery to Upper Arm Vein, Open Approach (ICD-10-PCS; principal; 2022-04-04 15:30)
DX: I12.0 Hypertensive chronic kidney disease with stage 5 chronic kidney disease or end stage renal disease (principal); E11.22 Type 2 diabetes mellitus with diabetic chronic kidney disease; N18.6 End stage renal disease
CPT/HCPCS: 36415; 82962; 84132; 94760; C1768; J1644

== ENCOUNTER 2022-09-03 18:13 | Inpatient (IN) | payer MEDICARE, OTHER ==
[2022-09-03] MEDS ORDERED: SODIUM CHLORIDE 0.9% 500 ML INFUS.BAG IV ONE ×2 (19:09→19:31)
[2022-09-03] MEDS ORDERED: FAMOTIDINE 20 MG/50 ML IVPB 20 MG/50 ML MG IVPB ONE ×2 (19:10→19:35)
[2022-09-03 19:58] LABS: VENOUS BASE EXCESS 0.8 mmol/L (-2-2); VENOUS PCO2 52.1 mmHg (38-52); VENOUS PH 7.335 (7.310-7.410)
[2022-09-03 20:03] LABS: BASO % 0.7 % (0-2.0); EOS % 1.3 % (0-4.5); HEMATOCRIT 28.8 % (32.4-45.2); HEMOGLOBIN 9.5 GM/dL (10.7-15.3); LYMPH % 11.9 % (8-40); MCH 29.1 pg (25.7-33.7); MCHC 32.9 g/dl (32.0-36.0); MEAN CELL VOLUME 88.3 fl (80-96); MEAN PLT VOLUME 9.3 fl (7.5-11.1); MONO % 8.2 % (3.8-10.2); NEUT % 77.9 % (42.8-82.8); PLATELET COUNT 197 10^3/uL (134-434); RBC 3.26 M/mm3 (3.60-5.2); RDW 12.7 % (11.6-15.6); WHITE BLOOD COUNT 8.4 K/mm3 (4.0-10.0)
[2022-09-03 20:18] LABS: CHLORIDE 103 mmol/L (98-107); POTASSIUM 5.7 mmol/L (3.5-5.1); SODIUM 140 mmol/L (136-145)
[2022-09-03 20:20] LABS: CALCIUM 9.5 mg/dL (8.5-10.1)
[2022-09-03 20:21] LABS: ALBUMIN 3.6 g/dl (3.4-5.0); ANION GAP 8 MMOL/L (8-16); BLOOD UREA NITROGEN 58.3 mg/dL (7-18); CO2 30 mmol/L (21-32); GLUCOSE,RANDOM 122 mg/dL (74-106)
[2022-09-03 20:24] LABS: SGOT/AST 16 U/L (15-37); SGPT/ALT 32 U/L (13-61)
[2022-09-03 20:25] LABS: BILIRUBIN,TOTAL 0.4 mg/dL (0.2-1)
[2022-09-03 20:26] LABS: ALK PHOS 99 U/L (45-117)
[2022-09-03 20:27] LABS: INR 1.26 (0.83-1.09); PROTHROMBIN TIME (PATIENT) 14.6 SEC (9.7-13.0)
[2022-09-03] MEDS ORDERED: SODIUM ZIRCONIUM CYCLOSILICATE (LOKELMA) 5 GM PACKET PO ONE (20:28)
[2022-09-03 20:30] LABS: ACTIVATED PTT 35.1 SECONDS (25.2-36.5)
[2022-09-03 20:35] LABS: CREATININE 7.6 mg/dL (0.55-1.3)
[2022-09-03] MEDS ORDERED: SODIUM ZIRCONIUM CYCLOSILICATE (LOKELMA) 5 GM PACKET ONE (20:43)
[2022-09-03] MEDS ORDERED: CARVEDILOL 25 MG TABLET (FP) PO ONE (20:44)
[2022-09-03] MEDS ORDERED: CARVEDILOL 25 MG TABLET (FP) ONE (20:52)
[2022-09-03 20:56] LABS: MAGNESIUM 2.3 mg/dL (1.8-2.4)
[2022-09-03 21:24] LABS: EPI CELLS 11 /uL (0-25.1); HYALINE CASTS 1 /uL (0-3.1); PH,URINE 8.5 (5.0-8.0); URINE APPEARANCE CLEAR; URINE BACTERIA 44 /uL (0-1359); URINE BILIRUBIN NEGATIVE (NEGATIVE); URINE COLOR YELLOW; URINE GLUCOSE (UA) 1+ (NEGATIVE); URINE KETONE NEGATIVE (NEGATIVE); URINE LEUK ESTERASE NEGATIVE (NEGATIVE); URINE NITRITE NEGATIVE (NEGATIVE); URINE PROTEIN 4+ (NEGATIVE); URINE RBC 20 /uL (0-23.9); URINE UROBILINOGEN 0.2 mg/dL (0.2-1.0); URINE WBC 6 /uL (0-25.8)
[2022-09-03] MEDS ORDERED: ONDANSETRON 4 MG/2 ML VIAL IVPUSH PRN (23:01)
[2022-09-03] MEDS ORDERED: NIFEdipine E.R 60 MG TABLET PO ONE (23:41)
[2022-09-03] MEDS: NIFEdipine E.R 60 MG TABLET PO SCH (23:43)
[2022-09-04 00:08] LABS: RETICULOCYTES 1.87 % (0.5-1.5)
[2022-09-04 04:47] VITALS: RESP 18
[2022-09-04] MEDS: HEPARIN NA (PORCINE) 5,000 UNITS/ML 1ML VIAL SQ SCH ×2 (05:41→14:00)
[2022-09-04] MEDS: INSULIN SLIDING SCALE (NOVOLOG) 1 VIAL SQ SCH ×3 (06:10→17:46)
[2022-09-04] MEDS ORDERED: INSULIN (NOVOLOG) ASPART 100 UNITS/ML 10ML VIAL SQ SCH (08:00)
[2022-09-04 08:33] LABS: HEMATOCRIT 22.8 % (32.4-45.2); HEMOGLOBIN 7.7 GM/dL (10.7-15.3); MCH 29.2 pg (25.7-33.7); MCHC 33.8 g/dl (32.0-36.0); MEAN CELL VOLUME 86.5 fl (80-96); MEAN PLT VOLUME 9.4 fl (7.5-11.1); PLATELET COUNT 152 10^3/uL (134-434); RBC 2.64 M/mm3 (3.60-5.2); RDW 12.7 % (11.6-15.6); WHITE BLOOD COUNT 6.6 K/mm3 (4.0-10.0)
[2022-09-04 08:48] LABS: CHLORIDE 107 mmol/L (98-107); POTASSIUM 4.8 mmol/L (3.5-5.1); SODIUM 144 mmol/L (136-145)
[2022-09-04 08:50] LABS: CALCIUM 8.6 mg/dL (8.5-10.1)
[2022-09-04 08:51] LABS: ANION GAP 10 MMOL/L (8-16); BLOOD UREA NITROGEN 65.4 mg/dL (7-18); CO2 26 mmol/L (21-32); GLUCOSE,RANDOM 194 mg/dL (74-106); MAGNESIUM 2.2 mg/dL (1.8-2.4)
[2022-09-04 08:53] LABS: SGPT/ALT 23 U/L (13-61)
[2022-09-04 08:54] LABS: PHOSPHOROUS 4.5 mg/dL (2.5-4.9); SGOT/AST 8 U/L (15-37)
[2022-09-04 08:55] LABS: BILIRUBIN,TOTAL 0.3 mg/dL (0.2-1); TOT PROT 5.6 g/dl (6.4-8.2)
[2022-09-04 08:56] LABS: ALK PHOS 81 U/L (45-117)
[2022-09-04 08:58] LABS: ALBUMIN 2.8 g/dl (3.4-5.0); CREATININE 8.1 mg/dL (0.55-1.3)
[2022-09-04] MEDS: SEVELAMER CARBONATE 800 MG TAB (FP) PO SCH ×3 (09:03→17:53)
[2022-09-04] MEDS ORDERED: FUROSEMIDE 20 MG TABLET (FP) PO SCH (10:00)
[2022-09-04] MEDS ORDERED: CARVEDILOL 25 MG TABLET (FP) PO SCH (10:00)
[2022-09-04 10:34] LABS: HEMATOCRIT 24.6 % (32.4-45.2); HEMOGLOBIN 8.4 GM/dL (10.7-15.3); MCH 29.6 pg (25.7-33.7); MEAN CELL VOLUME 87.1 fl (80-96); MEAN PLT VOLUME 9.5 fl (7.5-11.1); PLATELET COUNT 171 10^3/uL (134-434); RBC 2.82 M/mm3 (3.60-5.2); RDW 12.7 % (11.6-15.6); WHITE BLOOD COUNT 6.9 K/mm3 (4.0-10.0)
[2022-09-04] MEDS: NIFEdipine E.R 60 MG TABLET PO SCH (12:35)
[2022-09-04] MEDS ORDERED: SODIUM CHLORIDE 250 ML IV PRN (14:09)
[2022-09-04 14:53] VITALS: TEMP 97.9
[2022-09-04] MEDS ORDERED: EPOETIN ALFA-EPBX 10,000 UNIT/ML VIAL SQ ONE (15:00)
[2022-09-04 17:09] VITALS: BMI 22.2
[2022-09-04 17:21] VITALS: BP 145/65; PULSE 70
[2022-09-04] MEDS ORDERED: INSULIN (LEVEMIR) 100 UNITS/ML UNITS SQ SCH (22:00)
[2022-09-04] MEDS ORDERED: ATORVASTATIN CA 40 MG TABLET (FP) PO SCH (22:00)
== END 2022-09-04 19:34 | disposition home or self-care (01) | DRG 304 ==
LOC: JER 18:13 → JERBED 20:53 → OBSVTOIN 22:54 → J6S 09-04 00:19
PROVIDERS: ADMIT Internal Medicine; ATTEND Internal Medicine
PROC: 5A1D70Z Performance of Urinary Filtration, Intermittent, Less than 6 Hours Per Day (ICD-10-PCS; principal; 2022-09-04)
DX: I16.0 Hypertensive urgency (principal); N18.6 End stage renal disease; E87.5 Hyperkalemia; I12.0 Hypertensive chronic kidney disease with stage 5 chronic kidney disease or end stage renal disease; E11.22 Type 2 diabetes mellitus with diabetic chronic kidney disease; Z99.2 Dependence on renal dialysis; Z86.16 Personal history of COVID-19; D63.8 Anemia in other chronic diseases classified elsewhere; E11.319 Type 2 diabetes mellitus with unspecified diabetic retinopathy without macular edema; Z79.4 Long term (current) use of insulin
CPT/HCPCS: 36415; 71045-TC-FY; 80053; 81003; 82010; 82728; 82803; 82962; 83550; 83690; 83735; 84100; 84443; 84466; 84484; 85025; 85027; 85045; 85610; 85730; 86803; 87086; 87340; 93005; 93010; 99285-25; G0378; J1644; Q5106

== ENCOUNTER 2022-11-18 02:23 | Observation (INO) | payer MEDICARE, OTHER ==
[2022-11-18 03:50] LABS: BASO % 0.8 % (0-2.0); EOS % 3.1 % (0-4.5); HEMATOCRIT 30.1 % (32.4-45.2); LYMPH % 8.8 % (8-40); MCH 29.6 pg (25.7-33.7); MCHC 33.1 g/dl (32.0-36.0); MEAN CELL VOLUME 89.5 fl (80-96); MEAN PLT VOLUME 8.6 fl (7.5-11.1); MONO % 7.3 % (3.8-10.2); PLATELET COUNT 201 10^3/uL (134-434); RBC 3.37 M/mm3 (3.60-5.2); RDW 13.8 % (11.6-15.6); WHITE BLOOD COUNT 9.2 K/mm3 (4.0-10.0)
[2022-11-18 03:56] LABS: INR 1.19 (0.83-1.09); PROTHROMBIN TIME (PATIENT) 13.8 SEC (9.7-13.0)
[2022-11-18 03:59] LABS: ACTIVATED PTT 32.3 SECONDS (25.2-36.5); CHLORIDE 107 mmol/L (98-107)
[2022-11-18 04:02] LABS: ALBUMIN 3.3 g/dl (3.4-5.0); CO2 26 mmol/L (21-32); MAGNESIUM 2.5 mg/dL (1.8-2.4)
[2022-11-18 04:05] LABS: PHOSPHOROUS 3.7 mg/dL (2.5-4.9); SGOT/AST 19 U/L (15-37); SGPT/ALT 33 U/L (13-61)
[2022-11-18 04:06] LABS: BILIRUBIN,TOTAL 0.5 mg/dL (0.2-1)
[2022-11-18 04:07] LABS: TOT PROT 6.7 g/dl (6.4-8.2)
[2022-11-18 04:08] LABS: ALK PHOS 111 U/L (45-117)
[2022-11-18 04:33] LABS: ANION GAP 9 MMOL/L (8-16); CREATININE 9.4 mg/dL (0.55-1.3); GLUCOSE,RANDOM 181 mg/dL (74-106); POTASSIUM 6.3 mmol/L (3.5-5.1); SODIUM 142 mmol/L (136-145)
[2022-11-18] MEDS ORDERED: INSULIN REGULAR HUMAN 100 UNITS/ML *VIAL IVPUSH ONE (04:48)
[2022-11-18] MEDS ORDERED: DEXTROSE 50%-WATER - 25 GM/50 ML VIAL IVPUSH ONE (04:48)
[2022-11-18] MEDS ORDERED: FUROSEMIDE 40 MG/4 ML INJECTABLE VIAL IVPUSH ONE (04:49)
[2022-11-18] MEDS ORDERED: SODIUM ZIRCONIUM CYCLOSILICATE (LOKELMA) 5 GM PACKET PO ONE (04:52)
[2022-11-18] MEDS ORDERED: CALCIUM GLUCONATE 10% - 1,000 MG/10 ML VIAL IVPB ONE (04:52)
[2022-11-18] MEDS ORDERED: DEXTROSE 50%-WATER 25 GM/50 ML DISP.SYRIN ONE (05:26)
[2022-11-18] MEDS ORDERED: CALCIUM GLUCONATE 10% - 1,000 MG/10 ML VIAL ONE (05:26)
[2022-11-18] MEDS ORDERED: SODIUM ZIRCONIUM CYCLOSILICATE (LOKELMA) 10 GM PACKET ONE (05:27)
[2022-11-18] MEDS ORDERED: FUROSEMIDE 40 MG/4 ML INJECTABLE VIAL ONE (05:27)
[2022-11-18] MEDS ORDERED: SODIUM CHLORIDE 250 ML IV PRN (06:58)
[2022-11-18] MEDS ORDERED: hydrALAZINE HCL 10 MG TABLET ONE ×3 (08:08→18:13)
[2022-11-18] MEDS: hydrALAZINE HCL 10 MG TABLET PO SCH ×3 (08:28→18:22)
[2022-11-18 10:03] LABS: CHLORIDE 108 mmol/L (98-107); POTASSIUM 5.6 mmol/L (3.5-5.1)
[2022-11-18 10:05] LABS: BLOOD UREA NITROGEN 84.4 mg/dL (7-18); CALCIUM 9.2 mg/dL (8.5-10.1); CO2 23 mmol/L (21-32); GLUCOSE,RANDOM 98 mg/dL (74-106)
[2022-11-18 10:12] LABS: ANION GAP 11 MMOL/L (8-16); CREATININE 9.4 mg/dL (0.55-1.3); SODIUM 143 mmol/L (136-145)
[2022-11-18] MEDS: INSULIN SLIDING SCALE (NOVOLOG) 1 VIAL SQ SCH ×3 (11:00→22:57)
[2022-11-18] MEDS ORDERED: HEPARIN NA (PORCINE) 5,000 UNITS/ML 1ML VIAL ONE ×2 (12:37→22:19)
[2022-11-18] MEDS ORDERED: SEVELAMER CARBONATE 800 MG TAB (FP) ONE ×2 (12:37→18:14)
[2022-11-18] MEDS ORDERED: CARVEDILOL 25 MG TABLET (FP) ONE ×2 (12:37→22:19)
[2022-11-18] MEDS: SEVELAMER CARBONATE 800 MG TAB (FP) PO SCH ×2 (13:20→18:22)
[2022-11-18] MEDS: CARVEDILOL 25 MG TABLET (FP) PO SCH ×2 (13:34→22:24)
[2022-11-18] MEDS: HEPARIN NA (PORCINE) 5,000 UNITS/ML 1ML VIAL SQ SCH ×2 (13:35→22:24)
[2022-11-18] MEDS ORDERED: ATORVASTATIN CA 20 MG TABLET (FP) PO SCH (22:00)
[2022-11-18] MEDS ORDERED: ATORVASTATIN CA 20 MG TABLET (FP) ONE (22:19)
[2022-11-19] MEDS ORDERED: hydrALAZINE HCL 10 MG TABLET ONE (01:13)
[2022-11-19] MEDS: hydrALAZINE HCL 10 MG TABLET PO SCH ×4 (01:14→17:08)
[2022-11-19 03:20] VITALS: BMI 21.3
[2022-11-19] MEDS: INSULIN SLIDING SCALE (NOVOLOG) 1 VIAL SQ SCH ×3 (06:12→17:08)
[2022-11-19] MEDS: SEVELAMER CARBONATE 800 MG TAB (FP) PO SCH ×3 (08:34→17:08)
[2022-11-19 08:42] VITALS: RESP 18
[2022-11-19] MEDS: HEPARIN NA (PORCINE) 5,000 UNITS/ML 1ML VIAL SQ SCH (09:19)
[2022-11-19] MEDS: CARVEDILOL 25 MG TABLET (FP) PO SCH (09:20)
[2022-11-19 10:31] LABS: EOS % 4.5 % (0-4.5); HEMATOCRIT 27.5 % (32.4-45.2); HEMOGLOBIN 9.2 GM/dL (10.7-15.3); LYMPH % 16.4 % (8-40); MCH 29.7 pg (25.7-33.7); MCHC 33.5 g/dl (32.0-36.0); MEAN CELL VOLUME 88.7 fl (80-96); MEAN PLT VOLUME 8.8 fl (7.5-11.1); NEUT % 68.1 % (42.8-82.8); PLATELET COUNT 169 10^3/uL (134-434); RDW 13.8 % (11.6-15.6); WHITE BLOOD COUNT 7.2 K/mm3 (4.0-10.0)
[2022-11-19 10:47] LABS: POTASSIUM 4.6 mmol/L (3.5-5.1)
[2022-11-19 10:50] LABS: ALBUMIN 2.9 g/dl (3.4-5.0); MAGNESIUM 2.1 mg/dL (1.8-2.4)
[2022-11-19 10:53] LABS: CREATININE 6.6 mg/dL (0.55-1.3); PHOSPHOROUS 3.4 mg/dL (2.5-4.9)
[2022-11-19 10:54] LABS: BILIRUBIN,TOTAL 0.4 mg/dL (0.2-1); TOT PROT 5.8 g/dl (6.4-8.2)
[2022-11-19 10:58] LABS: BLOOD UREA NITROGEN 41.4 mg/dL (7-18)
[2022-11-19 14:57] VITALS: BP 152/76; PULSE 75; TEMP 97.7
== END 2022-11-19 18:21 | disposition home or self-care (01) ==
LOC: JER 02:23 → UNDOADMOB 03:48 → JERBED 03:48 → INTOOBSV 03:48 → JERBED 07:15 → J5S 11-19 02:58
PROVIDERS: ADMIT Internal Medicine
PROC: 3E033GC Introduction of Other Therapeutic Substance into Peripheral Vein, Percutaneous Approach (ICD-10-PCS; principal; 2022-11-18)
PROC: 3E0337Z Introduction of Electrolytic and Water Balance Substance into Peripheral Vein, Percutaneous Approach (ICD-10-PCS; 2022-11-18)
PROC: 3E033GC Introduction of Other Therapeutic Substance into Peripheral Vein, Percutaneous Approach (ICD-10-PCS; 2022-11-18)
PROC: 3E023GC Introduction of Other Therapeutic Substance into Muscle, Percutaneous Approach (ICD-10-PCS; 2022-11-18)
PROC: 3E013VG Introduction of Insulin into Subcutaneous Tissue, Percutaneous Approach (ICD-10-PCS; 2022-11-18)
PROC: 3E033VG Introduction of Insulin into Peripheral Vein, Percutaneous Approach (ICD-10-PCS; 2022-11-18)
DX: J96.01 Acute respiratory failure with hypoxia (principal); E11.22 Type 2 diabetes mellitus with diabetic chronic kidney disease; E11.40 Type 2 diabetes mellitus with diabetic neuropathy, unspecified; I13.2 Hypertensive heart and chronic kidney disease with heart failure and with stage 5 chronic kidney disease, or end stage renal disease; N18.6 End stage renal disease; Z99.2 Dependence on renal dialysis; E87.5 Hyperkalemia; R11.0 Nausea; R42 Dizziness and giddiness; D64.9 Anemia, unspecified; Z91.199 Patient's noncompliance with other medical treatment and regimen due to unspecified reason; Z29.8 Encounter for other specified prophylactic measures; Z88.8 Allergy status to other drugs, medicaments and biological substances
CPT/HCPCS: 0241U-QW; 36415; 71045-TC-FY; 80048; 80053; 82550; 82553; 82962; 83735; 84100; 84484; 85025; 85610; 85730; 86850; 86900; 86901; 93005; 93010; 93306-TC; 96361; 96372; 96374; 96375; 97116-GP; 97161-GP; 99291; G0378; J1644

== ENCOUNTER 2022-12-16 06:01 | Observation (INO) | payer MEDICARE, OTHER ==
[2022-12-16 06:16] VITALS: BMI 22.5
[2022-12-16 07:10] LABS: BASO % 1.4 % (0-2.0); EOS % 4.1 % (0-4.5); HEMATOCRIT 33.9 % (32.4-45.2); LYMPH % 9.8 % (8-40); MCH 29.6 pg (25.7-33.7); MCHC 32.3 g/dl (32.0-36.0); MEAN CELL VOLUME 91.7 fl (80-96); MEAN PLT VOLUME 8.4 fl (7.5-11.1); MONO % 7.4 % (3.8-10.2); NEUT % 77.3 % (42.8-82.8); PLATELET COUNT 206 10^3/uL (134-434); RDW 16.2 % (11.6-15.6); WHITE BLOOD COUNT 7.6 K/mm3 (4.0-10.0)
[2022-12-16 07:41] LABS: CHLORIDE 109 mmol/L (98-107); POTASSIUM 5.8 mmol/L (3.5-5.1); SODIUM 141 mmol/L (136-145)
[2022-12-16 07:43] LABS: CALCIUM 9.2 mg/dL (8.5-10.1)
[2022-12-16 07:44] LABS: ALBUMIN 3.1 g/dl (3.4-5.0); ANION GAP 4 MMOL/L (8-16); BLOOD UREA NITROGEN 75.7 mg/dL (7-18); CO2 28 mmol/L (21-32); GLUCOSE,RANDOM 134 mg/dL (74-106); MAGNESIUM 2.3 mg/dL (1.8-2.4)
[2022-12-16 07:47] LABS: SGOT/AST 23 U/L (15-37); SGPT/ALT 48 U/L (13-61)
[2022-12-16 07:49] LABS: BILIRUBIN,TOTAL 0.5 mg/dL (0.2-1); TOT PROT 6.3 g/dl (6.4-8.2)
[2022-12-16 07:50] LABS: ALK PHOS 127 U/L (45-117)
[2022-12-16 08:00] LABS: CREATININE 9.6 mg/dL (0.55-1.3)
[2022-12-16] MEDS ORDERED: SODIUM ZIRCONIUM CYCLOSILICATE (LOKELMA) 10 GM PACKET ONE (08:16)
[2022-12-16] MEDS: SODIUM ZIRCONIUM CYCLOSILICATE (LOKELMA) 5 GM PACKET PO SCH (08:27)
[2022-12-16] MEDS ORDERED: SODIUM CHLORIDE 250 ML IV PRN (09:08)
[2022-12-16] MEDS: INSULIN SLIDING SCALE (NOVOLOG) 1 VIAL SQ SCH ×3 (12:07→22:26)
[2022-12-16] MEDS ORDERED: SEVELAMER CARBONATE 800 MG TAB (FP) ONE ×2 (12:10→18:07)
[2022-12-16] MEDS: SEVELAMER CARBONATE 800 MG TAB (FP) PO SCH ×2 (12:12→18:14)
[2022-12-16] MEDS: HEPARIN NA (PORCINE) 5,000 UNITS/ML 1ML VIAL SQ SCH ×2 (15:56→22:26)
[2022-12-16 17:48] VITALS: RESP 18
[2022-12-16] MEDS ORDERED: CARVEDILOL 25 MG TABLET (FP) ONE (21:54)
[2022-12-16] MEDS ORDERED: ATORVASTATIN CA 20 MG TABLET (FP) ONE (21:54)
[2022-12-16] MEDS ORDERED: INSULIN (LEVEMIR) 100 UNITS/ML UNITS SQ SCH (22:00)
[2022-12-16] MEDS ORDERED: ATORVASTATIN CA 20 MG TABLET (FP) PO SCH (22:00)
[2022-12-16] MEDS: CARVEDILOL 25 MG TABLET (FP) PO SCH (22:26)
[2022-12-17] MEDS: INSULIN SLIDING SCALE (NOVOLOG) 1 VIAL SQ SCH ×3 (06:52→16:33)
[2022-12-17] MEDS: HEPARIN NA (PORCINE) 5,000 UNITS/ML 1ML VIAL SQ SCH ×2 (06:52→13:02)
[2022-12-17] MEDS: SEVELAMER CARBONATE 800 MG TAB (FP) PO SCH ×3 (08:05→17:01)
[2022-12-17] MEDS: SODIUM ZIRCONIUM CYCLOSILICATE (LOKELMA) 5 GM PACKET PO SCH (08:05)
[2022-12-17] MEDS: CARVEDILOL 25 MG TABLET (FP) PO SCH (09:01)
[2022-12-17 10:28] LABS: EOS % 3.6 % (0-4.5); HEMATOCRIT 33.2 % (32.4-45.2); HEMOGLOBIN 10.6 GM/dL (10.7-15.3); LYMPH % 9.8 % (8-40); MCH 29.2 pg (25.7-33.7); MEAN CELL VOLUME 91.2 fl (80-96); MEAN PLT VOLUME 8.8 fl (7.5-11.1); MONO % 8.9 % (3.8-10.2); NEUT % 76.7 % (42.8-82.8); PLATELET COUNT 192 10^3/uL (134-434); RBC 3.64 M/mm3 (3.60-5.2); RDW 16.8 % (11.6-15.6); WHITE BLOOD COUNT 7.7 K/mm3 (4.0-10.0)
[2022-12-17 10:39] LABS: POTASSIUM 4.2 mmol/L (3.5-5.1)
[2022-12-17 10:47] LABS: ALBUMIN 2.8 g/dl (3.4-5.0)
[2022-12-17 10:48] LABS: CALCIUM 8.3 mg/dL (8.5-10.1); MAGNESIUM 2.1 mg/dL (1.8-2.4)
[2022-12-17 10:51] LABS: CREATININE 6.6 mg/dL (0.55-1.3); PHOSPHOROUS 3.2 mg/dL (2.5-4.9)
[2022-12-17 10:53] LABS: BILIRUBIN,TOTAL 0.7 mg/dL (0.2-1); TOT PROT 5.8 g/dl (6.4-8.2)
[2022-12-17 12:09] LABS: EPI CELLS 13 /uL (0-25.1); HYALINE CASTS 1 /uL (0-3.1); PH,URINE 8.5 (5.0-8.0); URINE APPEARANCE CLEAR; URINE BACTERIA 23 /uL (0-1359); URINE BILIRUBIN NEGATIVE (NEGATIVE); URINE COLOR YELLOW; URINE GLUCOSE (UA) 1+ (NEGATIVE); URINE KETONE NEGATIVE (NEGATIVE); URINE LEUK ESTERASE NEGATIVE (NEGATIVE); URINE NITRITE NEGATIVE (NEGATIVE); URINE PROTEIN 4+ (NEGATIVE); URINE RBC 9 /uL (0-23.9); URINE UROBILINOGEN 0.2 mg/dL (0.2-1.0); URINE WBC 7 /uL (0-25.8)
[2022-12-17 13:51] VITALS: BP 157/83; PULSE 73; TEMP 98.9
== END 2022-12-17 18:00 | disposition home or self-care (01) ==
LOC: JER 06:01 → JERBED 09:00 → J6S 12-17 00:28
PROVIDERS: ADMIT Internal Medicine; ATTEND Internal Medicine
PROC: 3E023GC Introduction of Other Therapeutic Substance into Muscle, Percutaneous Approach (ICD-10-PCS; principal; 2022-12-16)
PROC: 3E013VG Introduction of Insulin into Subcutaneous Tissue, Percutaneous Approach (ICD-10-PCS; 2022-12-16)
DX: N18.6 End stage renal disease (principal); D64.9 Anemia, unspecified; E11.319 Type 2 diabetes mellitus with unspecified diabetic retinopathy without macular edema; R06.00 Dyspnea, unspecified; R42 Dizziness and giddiness; E78.5 Hyperlipidemia, unspecified; E87.5 Hyperkalemia; Z91.158 Patient's noncompliance with renal dialysis for other reason; R09.89 Other specified symptoms and signs involving the circulatory and respiratory systems; Z99.2 Dependence on renal dialysis
CPT/HCPCS: 0241U-QW; 36415; 70450-TC; 71045-TC-FY; 80053; 81003; 82962; 83735; 84100; 84439; 84443; 84484; 85025; 86803; 87086; 87340; 93005; 93010; 96372; 99285-25; G0378; J1644

== ENCOUNTER 2023-01-01 04:08 | Emergency (ER) | payer MEDICARE, OTHER ==
[2023-01-01 04:16] VITALS: BP 185/90; PULSE 68; RESP 18; TEMP 98.1; BMI 21.2
[2023-01-01] MEDS ORDERED: ACETAMINOPHEN 325 MG TABLET (FP) PO ONE (05:23)
== END 2023-01-01 06:17 | disposition home or self-care (01) ==
LOC: JER 04:08
DX: H57.11 Ocular pain, right eye (principal); H53.8 Other visual disturbances; H02.843 Edema of right eye, unspecified eyelid
CPT/HCPCS: 99283-25

== ENCOUNTER 2023-01-17 09:37 | Observation (INO) | payer MEDICARE, OTHER ==
[2023-01-17] MEDS ORDERED: ONDANSETRON 4 MG/2 ML VIAL IVPUSH ONE (09:54)
[2023-01-17] MEDS ORDERED: ONDANSETRON 4 MG/2 ML VIAL ONE ×2 (10:06→12:26)
[2023-01-17 11:11] LABS: BASO % 0.7 % (0-2.0); EOS % 1.3 % (0-4.5); HEMATOCRIT 39.4 % (32.4-45.2); HEMOGLOBIN 12.9 GM/dL (10.7-15.3); LYMPH % 6.5 % (8-40); MCH 28.7 pg (25.7-33.7); MCHC 32.8 g/dl (32.0-36.0); MEAN CELL VOLUME 87.5 fl (80-96); MEAN PLT VOLUME 7.6 fl (7.5-11.1); MONO % 5.9 % (3.8-10.2); NEUT % 85.6 % (42.8-82.8); PLATELET COUNT 147 10^3/uL (134-434); RBC 4.51 M/mm3 (3.60-5.2); RDW 18.2 % (11.6-15.6); WHITE BLOOD COUNT 9.8 K/mm3 (4.0-10.0)
[2023-01-17 11:18] LABS: INR 1.43 (0.83-1.09); PROTHROMBIN TIME (PATIENT) 16.5 SEC (9.7-13.0)
[2023-01-17 11:21] LABS: ACTIVATED PTT 32.9 SECONDS (25.2-36.5); CHLORIDE 105 mmol/L (98-107); POTASSIUM 5.7 mmol/L (3.5-5.1); SODIUM 140 mmol/L (136-145)
[2023-01-17 11:24] LABS: CALCIUM 9.2 mg/dL (8.5-10.1)
[2023-01-17 11:25] LABS: ALBUMIN 3.2 g/dl (3.4-5.0); ANION GAP 10 mmol/L (4-13); BLOOD UREA NITROGEN 88.7 mg/dL (7-18); CO2 26 mmol/L (21-32); GLUCOSE,RANDOM 166 mg/dL (74-106); MAGNESIUM 2.3 mg/dL (1.8-2.4)
[2023-01-17 11:28] LABS: PHOSPHOROUS 6.5 mg/dL (2.5-4.9); SGOT/AST 23 U/L (15-37); SGPT/ALT 20 U/L (13-61)
[2023-01-17 11:29] LABS: TOT PROT 6.3 g/dl (6.4-8.2)
[2023-01-17 11:30] LABS: BILIRUBIN,TOTAL 0.6 mg/dL (0.2-1)
[2023-01-17 11:31] LABS: ALK PHOS 70 U/L (45-117)
[2023-01-17 11:35] LABS: CREATININE 9.7 mg/dL (0.55-1.3)
[2023-01-17] MEDS ORDERED: SODIUM ZIRCONIUM CYCLOSILICATE (LOKELMA) 10 GM PACKET ONE ×2 (12:26→15:16)
[2023-01-17] MEDS ORDERED: METOCLOPRAMIDE HCL INJECTION 10 MG/2 ML VIAL IVPUSH ONE (12:36)
[2023-01-17] MEDS ORDERED: FUROSEMIDE 40 MG/4 ML INJECTABLE VIAL IVPUSH ONE (12:41)
[2023-01-17] MEDS ORDERED: METOCLOPRAMIDE HCL INJECTION 10 MG/2 ML VIAL ONE (13:07)
[2023-01-17] MEDS ORDERED: FUROSEMIDE 40 MG/4 ML INJECTABLE VIAL ONE (13:08)
[2023-01-17] MEDS ORDERED: VANCOMYCIN 1,000 MG in DEXTROSE 5%-WATER - 250 ML IVPB ONE (14:06)
[2023-01-17] MEDS ORDERED: CEFEPIME HCL/D5W 1 GM/50 ML BAG IVPB ONE (14:06)
[2023-01-17] MEDS ORDERED: SODIUM CHLORIDE 250 ML IV PRN (14:12)
[2023-01-17] MEDS ORDERED: CEFEPIME 1 GM/100 ML BAG IVPB ONE (14:40)
[2023-01-17] MEDS ORDERED: VANCOMYCIN 1 GRAM (PRE-DOCKED) 1,000 MG/250 ML BAG IVPB ONE (14:40)
[2023-01-17] MEDS ORDERED: CARVEDILOL 12.5 MG TABLET (FP) ONE (14:43)
[2023-01-17] MEDS: CARVEDILOL 25 MG TABLET (FP) PO SCH ×2 (15:08→22:29)
[2023-01-17] MEDS: INSULIN SLIDING SCALE (NOVOLOG) 1 VIAL SQ SCH ×2 (15:32→23:47)
[2023-01-17 15:50] LABS: EPI CELLS 29 /uL (0-25.1); HYALINE CASTS 1 /uL (0-3.1); URINE APPEARANCE CLEAR; URINE BACTERIA 20 /uL (0-1359); URINE BILIRUBIN NEGATIVE (NEGATIVE); URINE COLOR YELLOW; URINE GLUCOSE (UA) 2+ (NEGATIVE); URINE KETONE NEGATIVE (NEGATIVE); URINE LEUK ESTERASE NEGATIVE (NEGATIVE); URINE NITRITE NEGATIVE (NEGATIVE); URINE PROTEIN 4+ (NEGATIVE); URINE RBC 45 /uL (0-23.9); URINE UROBILINOGEN 0.2 mg/dL (0.2-1.0); URINE WBC 8 /uL (0-25.8)
[2023-01-17] MEDS ORDERED: amLODIPine BESYLATE 10 MG TABLET (FP) ONE (20:06)
[2023-01-17] MEDS: amLODIPine BESYLATE 10 MG TABLET (FP) PO SCH (20:17)
[2023-01-17 21:02] LABS: POTASSIUM 4.4 mmol/L (3.5-5.1)
[2023-01-17 21:04] LABS: ALBUMIN 3.1 g/dl (3.4-5.0); CALCIUM 8.2 mg/dL (8.5-10.1)
[2023-01-17 21:07] LABS: CREATININE 5.4 mg/dL (0.55-1.3)
[2023-01-17 21:08] LABS: PHOSPHOROUS 3.4 mg/dL (2.5-4.9)
[2023-01-17 21:09] LABS: BILIRUBIN,TOTAL 0.6 mg/dL (0.2-1); TOT PROT 6.2 g/dl (6.4-8.2)
[2023-01-17 21:27] LABS: BLOOD UREA NITROGEN 37.6 mg/dL (7-18)
[2023-01-17] MEDS: HEPARIN NA (PORCINE) 5,000 UNITS/ML 1ML VIAL SQ SCH (22:28)
[2023-01-17] MEDS ORDERED: METOPROLOL TARTRATE 5 MG/5 ML VIAL IVPUSH ONE (23:00)
[2023-01-17] MEDS ORDERED: CARVEDILOL 25 MG TABLET (FP) ONE (23:19)
[2023-01-17] MEDS ORDERED: HEPARIN NA (PORCINE) 5,000 UNITS/ML 1ML VIAL ONE (23:20)
[2023-01-17] MEDS ORDERED: METOPROLOL TARTRATE 5 MG/5 ML VIAL ONE (23:21)
[2023-01-18] MEDS ORDERED: ONDANSETRON *ODT* 4 MG TABLET ONE ×3 (01:20→12:37)
[2023-01-18] MEDS: ONDANSETRON *ODT* 4 MG TABLET SL PRN ×3 (01:22→12:43)
[2023-01-18] MEDS ORDERED: hydrALAZINE HCL 20 MG/ML VIAL ONE (01:39)
[2023-01-18] MEDS ORDERED: hydrALAZINE HCL 20 MG/ML VIAL IVPUSH ONE (01:45)
[2023-01-18] MEDS ORDERED: HEPARIN NA (PORCINE) 5,000 UNITS/ML 1ML VIAL ONE ×2 (06:11→14:09)
[2023-01-18] MEDS: HEPARIN NA (PORCINE) 5,000 UNITS/ML 1ML VIAL SQ SCH ×3 (06:24→21:06)
[2023-01-18] MEDS: INSULIN SLIDING SCALE (NOVOLOG) 1 VIAL SQ SCH ×4 (06:31→21:15)
[2023-01-18 06:38] LABS: BASO % 0.7 % (0-2.0); EOS % 2.2 % (0-4.5); HEMOGLOBIN 12.1 GM/dL (10.7-15.3); LYMPH % 8.7 % (8-40); MCH 28.2 pg (25.7-33.7); MCHC 31.9 g/dl (32.0-36.0); MEAN CELL VOLUME 88.4 fl (80-96); MEAN PLT VOLUME 7.9 fl (7.5-11.1); MONO % 8.8 % (3.8-10.2); NEUT % 79.6 % (42.8-82.8); PLATELET COUNT 137 10^3/uL (134-434); RDW 18.8 % (11.6-15.6); WHITE BLOOD COUNT 7.8 K/mm3 (4.0-10.0)
[2023-01-18] MEDS ORDERED: FUROSEMIDE 40 MG TABLET (FP) ONE (10:41)
[2023-01-18] MEDS ORDERED: CARVEDILOL 25 MG TABLET (FP) ONE (10:41)
[2023-01-18] MEDS ORDERED: amLODIPine BESYLATE 10 MG TABLET (FP) ONE (10:41)
[2023-01-18] MEDS: FUROSEMIDE 40 MG TABLET (FP) PO SCH (10:56)
[2023-01-18] MEDS: CARVEDILOL 25 MG TABLET (FP) PO SCH ×2 (10:56→21:06)
[2023-01-18] MEDS: amLODIPine BESYLATE 10 MG TABLET (FP) PO SCH (10:57)
[2023-01-18] MEDS ORDERED: SODIUM ZIRCONIUM CYCLOSILICATE (LOKELMA) 5 GM PACKET PO ONE (11:54)
[2023-01-18] MEDS ORDERED: SODIUM ZIRCONIUM CYCLOSILICATE (LOKELMA) 10 GM PACKET ONE (12:38)
[2023-01-18] MEDS ORDERED: METOCLOPRAMIDE HCL INJECTION 10 MG/2 ML VIAL IVPUSH PRN (17:53)
[2023-01-18] MEDS ORDERED: METOCLOPRAMIDE HCL INJECTION 10 MG/2 ML VIAL ONE (17:55)
[2023-01-18 18:49] VITALS: BMI 21.7
[2023-01-18] MEDS ORDERED: INSULIN (NOVOLOG) ASPART 100 UNITS/ML 10ML VIAL ONE (21:04)
[2023-01-18] MEDS ORDERED: METOCLOPRAMIDE HCL INJECTION 10 MG/2 ML VIAL IVPUSH ONE (22:00)
[2023-01-19] MEDS: HEPARIN NA (PORCINE) 5,000 UNITS/ML 1ML VIAL SQ SCH ×3 (05:17→21:56)
[2023-01-19] MEDS ORDERED: INSULIN (NOVOLOG) ASPART 100 UNITS/ML 10ML VIAL ONE (06:27)
[2023-01-19] MEDS ORDERED: hydrALAZINE HCL 20 MG/ML VIAL IVPB ONE (06:30)
[2023-01-19] MEDS: INSULIN SLIDING SCALE (NOVOLOG) 1 VIAL SQ SCH ×4 (07:00→23:12)
[2023-01-19 10:01] LABS: BASO % 0.4 % (0-2.0); EOS % 0.5 % (0-4.5); HEMOGLOBIN 12.4 GM/dL (10.7-15.3); LYMPH % 8.7 % (8-40); MCH 28.1 pg (25.7-33.7); MCHC 31.7 g/dl (32.0-36.0); MEAN CELL VOLUME 88.5 fl (80-96); MEAN PLT VOLUME 7.9 fl (7.5-11.1); MONO % 9.1 % (3.8-10.2); NEUT % 81.3 % (42.8-82.8); PLATELET COUNT 125 10^3/uL (134-434); RBC 4.41 M/mm3 (3.60-5.2); RDW 19.4 % (11.6-15.6); WHITE BLOOD COUNT 8.4 K/mm3 (4.0-10.0)
[2023-01-19] MEDS: amLODIPine BESYLATE 10 MG TABLET (FP) PO SCH (10:16)
[2023-01-19] MEDS: CARVEDILOL 25 MG TABLET (FP) PO SCH ×2 (10:16→21:58)
[2023-01-19] MEDS: FUROSEMIDE 40 MG TABLET (FP) PO SCH (10:16)
[2023-01-19 10:22] LABS: CHLORIDE 100 mmol/L (98-107); POTASSIUM 4.7 mmol/L (3.5-5.1); SODIUM 138 mmol/L (136-145)
[2023-01-19 10:33] LABS: CALCIUM 8.2 mg/dL (8.5-10.1); GLUCOSE,RANDOM 169 mg/dL (74-106)
[2023-01-19 10:34] LABS: ALBUMIN 2.9 g/dl (3.4-5.0); ANION GAP 11 mmol/L (4-13); BILIRUBIN,TOTAL 0.5 mg/dL (0.2-1); CO2 27 mmol/L (21-32)
[2023-01-19 10:35] LABS: ALK PHOS 66 U/L (45-117)
[2023-01-19 10:36] LABS: SGPT/ALT 14 U/L (13-61)
[2023-01-19 10:37] LABS: SGOT/AST 10 U/L (15-37)
[2023-01-19 10:39] LABS: TOT PROT 5.7 g/dl (6.4-8.2)
[2023-01-19 10:41] LABS: BLOOD UREA NITROGEN 67.3 mg/dL (7-18); CREATININE 9.4 mg/dL (0.55-1.3)
[2023-01-19] MEDS ORDERED: METOCLOPRAMIDE HCL INJECTION 10 MG/2 ML VIAL IVPUSH PRN (10:47)
[2023-01-19] MEDS ORDERED: SODIUM CHLORIDE 250 ML IV PRN (15:18)
[2023-01-20] MEDS: HEPARIN NA (PORCINE) 5,000 UNITS/ML 1ML VIAL SQ SCH ×3 (07:39→21:10)
[2023-01-20] MEDS: INSULIN SLIDING SCALE (NOVOLOG) 1 VIAL SQ SCH ×4 (07:52→21:10)
[2023-01-20 09:35] LABS: HEMATOCRIT 38.5 % (32.4-45.2); HEMOGLOBIN 12.6 GM/dL (10.7-15.3); MCH 28.5 pg (25.7-33.7); MCHC 32.7 g/dl (32.0-36.0); MEAN CELL VOLUME 87.2 fl (80-96); MEAN PLT VOLUME 8.2 fl (7.5-11.1); PLATELET COUNT 111 10^3/uL (134-434); RBC 4.42 M/mm3 (3.60-5.2); RDW 19.2 % (11.6-15.6)
[2023-01-20 10:00] LABS: CHLORIDE 98 mmol/L (98-107); POTASSIUM 4.9 mmol/L (3.5-5.1); SODIUM 136 mmol/L (136-145)
[2023-01-20 10:01] LABS: CALCIUM 7.6 mg/dL (8.5-10.1)
[2023-01-20 10:02] LABS: ANION GAP 13 mmol/L (4-13); BLOOD UREA NITROGEN 72.1 mg/dL (7-18); CO2 26 mmol/L (21-32); GLUCOSE,RANDOM 211 mg/dL (74-106)
[2023-01-20 10:23] LABS: CREATININE 10.6 mg/dL (0.55-1.3)
[2023-01-20] MEDS: FUROSEMIDE 40 MG TABLET (FP) PO SCH (12:40)
[2023-01-20] MEDS: CARVEDILOL 25 MG TABLET (FP) PO SCH ×2 (12:40→21:10)
[2023-01-20] MEDS: amLODIPine BESYLATE 10 MG TABLET (FP) PO SCH (12:40)
[2023-01-20] MEDS ORDERED: INSULIN (NOVOLOG) ASPART 100 UNITS/ML 10ML VIAL ONE ×3 (12:43→21:02)
[2023-01-21] MEDS: HEPARIN NA (PORCINE) 5,000 UNITS/ML 1ML VIAL SQ SCH ×2 (05:48→15:00)
[2023-01-21] MEDS: INSULIN SLIDING SCALE (NOVOLOG) 1 VIAL SQ SCH ×3 (06:03→16:58)
[2023-01-21 08:09] VITALS: PULSE 71
[2023-01-21] MEDS: FUROSEMIDE 40 MG TABLET (FP) PO SCH (11:36)
[2023-01-21] MEDS: CARVEDILOL 25 MG TABLET (FP) PO SCH (11:36)
[2023-01-21] MEDS: amLODIPine BESYLATE 10 MG TABLET (FP) PO SCH (11:36)
[2023-01-21 14:05] VITALS: BP 137/61; RESP 20; TEMP 98.3
[2023-01-21] MEDS ORDERED: INSULIN (NOVOLOG) ASPART 100 UNITS/ML 10ML VIAL ONE (17:15)
== END 2023-01-21 18:40 | disposition home or self-care (01) ==
LOC: JER 09:37 → UNDOADMOB 14:05 → JERBED 14:05 → INTOOBSV 14:05 → JERBED 14:28 → J7W 01-18 18:20
PROVIDERS: ADMIT Family Medicine; ATTEND Nurse Practitioner Family
PROC: 3E03329 Introduction of Other Anti-infective into Peripheral Vein, Percutaneous Approach (ICD-10-PCS; principal; 2023-01-17)
PROC: 3E023GC Introduction of Other Therapeutic Substance into Muscle, Percutaneous Approach (ICD-10-PCS; 2023-01-17)
PROC: 3E033GC Introduction of Other Therapeutic Substance into Peripheral Vein, Percutaneous Approach (ICD-10-PCS; 2023-01-17)
DX: J98.11 Atelectasis (principal); J90 Pleural effusion, not elsewhere classified; R11.2 Nausea with vomiting, unspecified; E11.9 Type 2 diabetes mellitus without complications; N18.6 End stage renal disease; Z99.2 Dependence on renal dialysis; R10.32 Left lower quadrant pain; N28.9 Disorder of kidney and ureter, unspecified; G62.9 Polyneuropathy, unspecified; Z91.158 Patient's noncompliance with renal dialysis for other reason; E87.70 Fluid overload, unspecified; R09.89 Other specified symptoms and signs involving the circulatory and respiratory systems; Z88.8 Allergy status to other drugs, medicaments and biological substances
CPT/HCPCS: 36415; 70450-TC; 71045-TC-FY; 71250-TC; 74176-TC; 80048; 80053; 81003; 82962; 83605; 83735; 83880; 84100; 84439; 84443; 84484; 85025; 85027; 85610; 85730; 86704; 86803; 86850; 86900; 86901; 87040; 87086; 87340; 87517; 93005; 93010; 96365; 96367; 96372; 96375; 96376; 97116-GP; 97161-GP; 99285-25; G0378; J1644; Q0162

== ENCOUNTER 2023-04-08 13:08 | Observation (INO) | payer MEDICARE, OTHER ==
[2023-04-08 14:43] LABS: BASO % 0.6 % (0-2.0); EOS % 1.7 % (0-4.5); HEMATOCRIT 37.1 % (32.4-45.2); HEMOGLOBIN 11.6 GM/dL (10.7-15.3); MCH 28.1 pg (25.7-33.7); MCHC 31.3 g/dl (32.0-36.0); MEAN CELL VOLUME 89.6 fl (80-96); MEAN PLT VOLUME 8.4 fl (7.5-11.1); MONO % 3.6 % (3.8-10.2); NEUT % 87.1 % (42.8-82.8); PLATELET COUNT 186 10^3/uL (134-434); RBC 4.14 M/mm3 (3.60-5.2); VENOUS BASE EXCESS 0.3 mmol/L (-2-2); VENOUS PCO2 49.9 mmHg (38-52); VENOUS PH 7.344 (7.310-7.410); WHITE BLOOD COUNT 8.9 K/mm3 (4.0-10.0)
[2023-04-08 15:11] LABS: MAGNESIUM 2.5 mg/dL (1.8-2.4)
[2023-04-08 15:12] LABS: CHLORIDE 105 mmol/L (98-107); SODIUM 139 mmol/L (136-145)
[2023-04-08 15:16] LABS: CALCIUM 9.3 mg/dL (8.5-10.1)
[2023-04-08 15:17] LABS: ALBUMIN 3.2 g/dl (3.4-5.0); CO2 28 mmol/L (21-32); GLUCOSE,RANDOM 178 mg/dL (74-106)
[2023-04-08] MEDS ORDERED: VANCOMYCIN 1,000 MG in DEXTROSE 5%-WATER - 250 ML IVPB ONE (15:18)
[2023-04-08] MEDS ORDERED: PIPERACILLIN/TAZOB 3.375 GM 3.375 GM in DEXTROSE 5%-WATER - 50 ML IVPB ONE (15:19)
[2023-04-08 15:20] LABS: SGOT/AST 31 U/L (15-37); SGPT/ALT 21 U/L (13-61)
[2023-04-08 15:22] LABS: BILIRUBIN,TOTAL 0.7 mg/dL (0.2-1)
[2023-04-08 15:23] LABS: ALK PHOS 99 U/L (45-117)
[2023-04-08 15:24] LABS: ANION GAP 6 mmol/L (4-13); CREATININE 7.5 mg/dL (0.55-1.3); POTASSIUM 6.5 mmol/L (3.5-5.1)
[2023-04-08] MEDS ORDERED: VANCOMYCIN 1 GRAM (PRE-DOCKED) 1,000 MG/250 ML BAG IVPB ONE (16:14)
[2023-04-08] MEDS ORDERED: PIPERACILLIN/TAZOB 3.375 GM 3.375 GM/50 ML BAG IVPB ONE (16:14)
[2023-04-08] MEDS ORDERED: hydrALAZINE HCL 20 MG/ML VIAL IVPUSH ONE (17:01)
[2023-04-08] MEDS ORDERED: hydrALAZINE HCL 20 MG/ML VIAL ONE (17:43)
[2023-04-08] MEDS ORDERED: hydrALAZINE HCL 25 MG TABLET (FP) PO ONE (19:15)
[2023-04-08] MEDS ORDERED: hydrALAZINE HCL 25 MG TABLET (FP) ONE (20:04)
[2023-04-08] MEDS ORDERED: cloNIDine HCL 0.1 MG TABLET ONE (20:04)
[2023-04-08] MEDS ORDERED: CARVEDILOL 25 MG TABLET (FP) ONE (20:04)
[2023-04-08] MEDS ORDERED: ONDANSETRON 4 MG/2 ML VIAL IVPUSH ONE (20:07)
[2023-04-08] MEDS: cloNIDine HCL 0.1 MG TABLET PO SCH ×2 (20:07→22:59)
[2023-04-08] MEDS: CARVEDILOL 25 MG TABLET (FP) PO SCH ×2 (20:07→22:59)
[2023-04-08] MEDS ORDERED: hydrALAZINE HCL 20 MG/ML VIAL IVPUSH PRN (21:38)
[2023-04-08] MEDS: HEPARIN NA (PORCINE) 5,000 UNITS/ML 1ML VIAL SQ SCH (22:55)
[2023-04-08] MEDS: ATORVASTATIN CA 20 MG TABLET (FP) PO SCH (22:55)
[2023-04-08] MEDS: INSULIN (LEVEMIR) 100 UNITS/ML UNITS SQ SCH (22:55)
[2023-04-08 23:43] VITALS: BMI 22.3
[2023-04-09] MEDS ORDERED: TRIMETHOBENZAMIDE HCL 200MG/2ML INJ IM ONE (05:22)
[2023-04-09] MEDS: HEPARIN NA (PORCINE) 5,000 UNITS/ML 1ML VIAL SQ SCH ×3 (05:59→21:50)
[2023-04-09] MEDS: INSULIN (NOVOLOG) ASPART 100 UNITS/ML 10ML VIAL SQ SCH ×3 (06:31→18:07)
[2023-04-09] MEDS ORDERED: SODIUM CHLORIDE 250 ML IV PRN (08:33)
[2023-04-09 10:01] LABS: CHLORIDE 106 mmol/L (98-107); POTASSIUM 4.9 mmol/L (3.5-5.1); SODIUM 142 mmol/L (136-145)
[2023-04-09 10:06] LABS: HEMATOCRIT 35.1 % (32.4-45.2); HEMOGLOBIN 10.9 GM/dL (10.7-15.3); MCH 28.3 pg (25.7-33.7); MEAN CELL VOLUME 91.2 fl (80-96); MEAN PLT VOLUME 8.6 fl (7.5-11.1); MONO % 6.3 % (3.8-10.2); NEUT % 79.7 % (42.8-82.8); PLATELET COUNT 175 10^3/uL (134-434); RBC 3.85 M/mm3 (3.60-5.2); RDW 20.7 % (11.6-15.6); WHITE BLOOD COUNT 7.8 K/mm3 (4.0-10.0)
[2023-04-09 10:08] LABS: ANION GAP 7 mmol/L (4-13); BLOOD UREA NITROGEN 56.3 mg/dL (7-18); CALCIUM 8.9 mg/dL (8.5-10.1); CO2 29 mmol/L (21-32); SGOT/AST 14 U/L (15-37); SGPT/ALT 19 U/L (13-61)
[2023-04-09 10:09] LABS: ALBUMIN 2.9 g/dl (3.4-5.0); MAGNESIUM 2.6 mg/dL (1.8-2.4)
[2023-04-09 10:10] LABS: BILIRUBIN,TOTAL 0.5 mg/dL (0.2-1); TOT PROT 6.3 g/dl (6.4-8.2)
[2023-04-09 10:11] LABS: ALK PHOS 86 U/L (45-117)
[2023-04-09 10:13] LABS: PHOSPHOROUS 4.4 mg/dL (2.5-4.9)
[2023-04-09 10:14] LABS: CREATININE 9.2 mg/dL (0.55-1.3); GLUCOSE,RANDOM 48 mg/dL (74-106)
[2023-04-09 11:05] LABS: ANISOCYTOSIS 1+; MACROCYTOSIS 1+
[2023-04-09] MEDS: SEVELAMER CARBONATE 800 MG TAB (FP) PO SCH ×3 (11:22→18:06)
[2023-04-09] MEDS: amLODIPine BESYLATE 10 MG TABLET (FP) PO SCH (14:41)
[2023-04-09] MEDS: cloNIDine HCL 0.1 MG TABLET PO SCH (14:41)
[2023-04-09] MEDS: CARVEDILOL 25 MG TABLET (FP) PO SCH ×2 (14:43→21:50)
[2023-04-09 15:56] LABS: N-TERMINAL BNP 75335.6 pg/ml (5-125)
[2023-04-09] MEDS: LISINOPRIL 5 MG TABLET PO SCH (18:06)
[2023-04-09] MEDS: FUROSEMIDE 40 MG TABLET (FP) PO SCH (18:07)
[2023-04-09] MEDS: ATORVASTATIN CA 20 MG TABLET (FP) PO SCH (21:50)
[2023-04-09] MEDS: INSULIN (LEVEMIR) 100 UNITS/ML UNITS SQ SCH (21:50)
[2023-04-10] MEDS: HEPARIN NA (PORCINE) 5,000 UNITS/ML 1ML VIAL SQ SCH (06:17)
[2023-04-10] MEDS: INSULIN (NOVOLOG) ASPART 100 UNITS/ML 10ML VIAL SQ SCH ×2 (08:42→12:09)
[2023-04-10 08:52] VITALS: PULSE 70; RESP 20
[2023-04-10] MEDS: amLODIPine BESYLATE 10 MG TABLET (FP) PO SCH (09:59)
[2023-04-10] MEDS: CARVEDILOL 25 MG TABLET (FP) PO SCH (09:59)
[2023-04-10] MEDS: SEVELAMER CARBONATE 800 MG TAB (FP) PO SCH ×2 (09:59→12:10)
[2023-04-10] MEDS: LISINOPRIL 5 MG TABLET PO SCH (09:59)
[2023-04-10] MEDS: FUROSEMIDE 40 MG TABLET (FP) PO SCH (09:59)
[2023-04-10 10:04] LABS: BASO % 0.7 % (0-2.0); EOS % 3.8 % (0-4.5); HEMATOCRIT 33.5 % (32.4-45.2); HEMOGLOBIN 10.8 GM/dL (10.7-15.3); LYMPH % 11.4 % (8-40); MCH 28.9 pg (25.7-33.7); MCHC 32.2 g/dl (32.0-36.0); MEAN CELL VOLUME 89.7 fl (80-96); MEAN PLT VOLUME 8.3 fl (7.5-11.1); MONO % 9.8 % (3.8-10.2); NEUT % 74.3 % (42.8-82.8); PLATELET COUNT 153 10^3/uL (134-434); RBC 3.74 M/mm3 (3.60-5.2); RDW 20.3 % (11.6-15.6); WHITE BLOOD COUNT 7.1 K/mm3 (4.0-10.0)
[2023-04-10 10:30] LABS: POTASSIUM 4.6 mmol/L (3.5-5.1)
[2023-04-10 10:37] LABS: ALBUMIN 2.6 g/dl (3.4-5.0); CALCIUM 7.8 mg/dL (8.5-10.1)
[2023-04-10 10:38] LABS: BLOOD UREA NITROGEN 38.8 mg/dL (7-18); MAGNESIUM 2.2 mg/dL (1.8-2.4)
[2023-04-10 10:41] LABS: CREATININE 6.5 mg/dL (0.55-1.3)
[2023-04-10 10:42] LABS: BILIRUBIN,TOTAL 0.4 mg/dL (0.2-1); TOT PROT 5.7 g/dl (6.4-8.2)
[2023-04-10 12:04] VITALS: BP 155/78; TEMP 97.7
== END 2023-04-10 13:58 | disposition home or self-care (01) ==
LOC: JER 13:08 → JERBED 18:03 → J8W 22:00
PROVIDERS: ADMIT Internal Medicine; ATTEND Nurse Practitioner Acute Care
PROC: 3E023GC Introduction of Other Therapeutic Substance into Muscle, Percutaneous Approach (ICD-10-PCS; principal; 2023-04-08)
PROC: 3E013VG Introduction of Insulin into Subcutaneous Tissue, Percutaneous Approach (ICD-10-PCS; 2023-04-08)
PROC: 3E033GC Introduction of Other Therapeutic Substance into Peripheral Vein, Percutaneous Approach (ICD-10-PCS; 2023-04-08)
PROC: 3E03329 Introduction of Other Anti-infective into Peripheral Vein, Percutaneous Approach (ICD-10-PCS; 2023-04-08)
PROC: 3E0337Z Introduction of Electrolytic and Water Balance Substance into Peripheral Vein, Percutaneous Approach (ICD-10-PCS; 2023-04-08)
DX: I67.4 Hypertensive encephalopathy (principal); I16.0 Hypertensive urgency; E11.22 Type 2 diabetes mellitus with diabetic chronic kidney disease; I12.0 Hypertensive chronic kidney disease with stage 5 chronic kidney disease or end stage renal disease; N18.6 End stage renal disease; Z99.2 Dependence on renal dialysis
CPT/HCPCS: 0241U-QW; 36415; 70450-TC; 71045-TC-FY; 74176-TC; 80053; 82803; 82962; 83735; 83880; 84100; 84439; 84443; 84484; 85025; 87340; 93005; 93010; 96361; 96365; 96367; 96372; 96375; 99285-25; G0378; J1644

== ENCOUNTER 2023-06-02 04:56 | Observation (INO) | payer MEDICARE, OTHER ==
[2023-06-02 05:49] LABS: VENOUS BASE EXCESS -0.5 mmol/L (-2-2); VENOUS O2 SATURATION 19.7 % (70-80); VENOUS PCO2 51.4 mmHg (38-52); VENOUS PH 7.325 (7.310-7.410)
[2023-06-02 05:52] LABS: BASO % 0.9 % (0-2.0); EOS % 4.7 % (0-4.5); HEMOGLOBIN 12.7 GM/dL (10.7-15.3); LYMPH % 6.9 % (8-40); MCH 27.6 pg (25.7-33.7); MCHC 31.7 g/dl (32.0-36.0); MEAN CELL VOLUME 87.1 fl (80-96); MONO % 9.1 % (3.8-10.2); NEUT % 78.4 % (42.8-82.8); PLATELET COUNT 178 10^3/uL (134-434); RBC 4.59 M/mm3 (3.60-5.2); RDW 17.7 % (11.6-15.6); WHITE BLOOD COUNT 8.1 K/mm3 (4.0-10.0)
[2023-06-02 06:08] LABS: CHLORIDE 106 mmol/L (98-107); SODIUM 141 mmol/L (136-145)
[2023-06-02 06:10] LABS: CALCIUM 9.8 mg/dL (8.5-10.1); GLUCOSE,RANDOM 178 mg/dL (74-106)
[2023-06-02 06:11] LABS: ALBUMIN 3.1 g/dl (3.4-5.0); BLOOD UREA NITROGEN 94.6 mg/dL (7-18); CO2 25 mmol/L (21-32)
[2023-06-02 06:14] LABS: SGOT/AST 15 U/L (15-37); SGPT/ALT 23 U/L (13-61)
[2023-06-02 06:15] LABS: BILIRUBIN,TOTAL 0.6 mg/dL (0.2-1); TOT PROT 6.7 g/dl (6.4-8.2)
[2023-06-02 06:16] LABS: ALK PHOS 109 U/L (45-117)
[2023-06-02 06:18] LABS: N-TERMINAL BNP 24693.2 pg/ml (5-125)
[2023-06-02] MEDS ORDERED: PIPERACILLIN/TAZOB 4.5 GM 4.5 GM/100 ML BAG IVPB ONE (06:29)
[2023-06-02] MEDS ORDERED: VANCOMYCIN 1 GRAM (PRE-DOCKED) 1,000 MG/250 ML BAG IVPB ONE (06:29)
[2023-06-02 06:35] LABS: ANION GAP 10 mmol/L (4-13); CREATININE 9.5 mg/dL (0.55-1.3); POTASSIUM 6.1 mmol/L (3.5-5.1)
[2023-06-02] MEDS: PIPERACILLIN/TAZOB 4.5 GM 4.5 GM in DEXTROSE 5%-WATER 100 ML IVPB ONE (06:39)
[2023-06-02] MEDS: VANCOMYCIN 1,000 MG in DEXTROSE 5%-WATER - 250 ML IVPB ONE (06:51)
[2023-06-02] MEDS ORDERED: SODIUM ZIRCONIUM CYCLOSILICATE (LOKELMA) 10 GM PACKET ONE (06:57)
[2023-06-02] MEDS ORDERED: FUROSEMIDE 40 MG/4 ML INJECTABLE VIAL ONE (06:57)
[2023-06-02] MEDS ORDERED: DEXTROSE 50%-WATER 25 GM/50 ML DISP.SYRIN ONE (06:57)
[2023-06-02] MEDS ORDERED: CALCIUM GLUCONATE 10% - 1,000 MG/10 ML VIAL ONE (06:57)
[2023-06-02] MEDS ORDERED: INSULIN REGULAR HUMAN 100 UNITS/ML *VIAL ONE (07:00)
[2023-06-02] MEDS: INSULIN REGULAR HUMAN 100 UNITS/ML *VIAL IVPUSH ONE ×2 (07:14→18:25)
[2023-06-02] MEDS: FUROSEMIDE 40 MG/4 ML INJECTABLE VIAL IVPUSH ONE (07:14)
[2023-06-02] MEDS: CALCIUM GLUCONATE 10% - 1,000 MG/10 ML VIAL IVPB ONE (07:14)
[2023-06-02] MEDS: SODIUM ZIRCONIUM CYCLOSILICATE (LOKELMA) 5 GM PACKET PO ONE (07:14)
[2023-06-02] MEDS: DEXTROSE 50%-WATER - 25 GM/50 ML VIAL IVPUSH ONE ×2 (07:14→18:25)
[2023-06-02 08:20] LABS: INR 1.13 (0.83-1.09); PROTHROMBIN TIME (PATIENT) 13.1 SEC (9.7-13.0)
[2023-06-02 08:23] LABS: ACTIVATED PTT 35.3 SECONDS (25.2-36.5)
[2023-06-02] MEDS ORDERED: SODIUM CHLORIDE 250 ML IV PRN (08:23)
[2023-06-02] MEDS ORDERED: ACETAMINOPHEN 325 MG TABLET (FP) PO PRN (08:37)
[2023-06-02] MEDS ORDERED: SEVELAMER CARBONATE 800 MG TAB (FP) ONE (10:31)
[2023-06-02] MEDS ORDERED: CARVEDILOL 25 MG TABLET (FP) ONE (10:31)
[2023-06-02] MEDS: CARVEDILOL 25 MG TABLET (FP) PO SCH ×2 (11:00→22:20)
[2023-06-02] MEDS: SEVELAMER CARBONATE 800 MG TAB (FP) PO SCH (11:31)
[2023-06-02] MEDS: CARVEDILOL 25 MG TABLET (FP) PO ONE (11:46)
[2023-06-02] MEDS: INSULIN ASPART SLIDING SCALE (NOVOLOG) 1 VIAL SQ SCH (12:56)
[2023-06-02 13:15] LABS: POTASSIUM 6.4 mmol/L (3.5-5.1)
[2023-06-02] MEDS: HEPARIN NA (PORCINE) 5,000 UNITS/ML 1ML VIAL IVPUSH ONE (14:28)
[2023-06-02] MEDS: SODIUM ZIRCONIUM CYCLOSILICATE (LOKELMA) 5 GM PACKET PO SCH (18:25)
[2023-06-02] MEDS: CALCIUM GLUCONATE IN NACL 1 GM/50 ML BAG IVPB ONE (18:25)
[2023-06-02 19:01] VITALS: BMI 22.4
[2023-06-02] MEDS ORDERED: LABETALOL HCL 5 MG/1 ML (100MG/20 ML VIAL) IVPUSH ONE (20:54)
[2023-06-02] MEDS: LABETALOL HCL 20 MG/4 ML VIAL IVPUSH ONE (21:23)
[2023-06-02] MEDS: INSULIN (LEVEMIR) 100 UNITS/ML UNITS SQ SCH (21:31)
[2023-06-02] MEDS: ATORVASTATIN CA 20 MG TABLET (FP) PO SCH (21:33)
[2023-06-03 07:33] LABS: HEMATOCRIT 36.8 % (32.4-45.2); HEMOGLOBIN 12.1 GM/dL (10.7-15.3); MCH 28.4 pg (25.7-33.7); MCHC 32.8 g/dl (32.0-36.0); MEAN CELL VOLUME 86.6 fl (80-96); MEAN PLT VOLUME 8.2 fl (7.5-11.1); PLATELET COUNT 180 10^3/uL (134-434); RBC 4.25 M/mm3 (3.60-5.2); WHITE BLOOD COUNT 7.7 K/mm3 (4.0-10.0)
[2023-06-03 07:44] LABS: POTASSIUM 5.1 mmol/L (3.5-5.1)
[2023-06-03 07:50] LABS: CALCIUM 9.3 mg/dL (8.5-10.1)
[2023-06-03 07:51] LABS: MAGNESIUM 2.8 mg/dL (1.8-2.4)
[2023-06-03 07:53] LABS: PHOSPHOROUS 4.6 mg/dL (2.5-4.9)
[2023-06-03 07:55] LABS: BILIRUBIN,TOTAL 0.8 mg/dL (0.2-1); CREATININE 6.1 mg/dL (0.55-1.3); TOT PROT 6.7 g/dl (6.4-8.2)
[2023-06-03 07:58] LABS: BLOOD UREA NITROGEN 46.6 mg/dL (7-18)
[2023-06-03] MEDS: amLODIPine BESYLATE 10 MG TABLET (FP) PO SCH (09:16)
[2023-06-03] MEDS: SODIUM ZIRCONIUM CYCLOSILICATE (LOKELMA) 5 GM PACKET PO SCH (10:55)
[2023-06-03] MEDS ORDERED: SODIUM CHLORIDE 250 ML IV PRN (12:15)
[2023-06-03 14:51] VITALS: BP 147/72; PULSE 87; RESP 19; TEMP 97.9
== END 2023-06-03 18:58 | disposition home or self-care (01) ==
LOC: JER 04:56 → JERBED 07:35 → J4S 17:19
PROVIDERS: ADMIT Internal Medicine; ATTEND Internal Medicine
PROC: 3E033GC Introduction of Other Therapeutic Substance into Peripheral Vein, Percutaneous Approach (ICD-10-PCS; principal; 2023-06-02)
PROC: 3E0337Z Introduction of Electrolytic and Water Balance Substance into Peripheral Vein, Percutaneous Approach (ICD-10-PCS; 2023-06-02)
PROC: 3E013VG Introduction of Insulin into Subcutaneous Tissue, Percutaneous Approach (ICD-10-PCS; 2023-06-02)
PROC: 3E033VG Introduction of Insulin into Peripheral Vein, Percutaneous Approach (ICD-10-PCS; 2023-06-02)
PROC: 3E03329 Introduction of Other Anti-infective into Peripheral Vein, Percutaneous Approach (ICD-10-PCS; 2023-06-02)
DX: J96.00 Acute respiratory failure, unspecified whether with hypoxia or hypercapnia (principal); E78.5 Hyperlipidemia, unspecified; E11.9 Type 2 diabetes mellitus without complications; I16.0 Hypertensive urgency; Z99.2 Dependence on renal dialysis; J81.1 Chronic pulmonary edema; E87.70 Fluid overload, unspecified; E87.5 Hyperkalemia; R42 Dizziness and giddiness; D64.9 Anemia, unspecified; Z91.199 Patient's noncompliance with other medical treatment and regimen due to unspecified reason
CPT/HCPCS: 0241U-QW; 36415; 71045-TC-FY; 80053; 82803; 82962; 83735; 83880; 84100; 84132; 84484; 85025; 85027; 85610; 85730; 86803; 86850; 86900; 86901; 87340; 87651; 93005; 93010; 96361; 96365; 96368; 96372; 96375; 99285-25; G0378; J1644

== ENCOUNTER 2023-11-17 07:35 | Inpatient (IN) | payer MEDICARE, OTHER ==
[2023-11-17 07:51] VITALS: BMI 21.4
[2023-11-17 08:44] LABS: BASO % 0.2 % (0-2.0); EOS % 1.1 % (0-4.5); HEMATOCRIT 33.2 % (32.4-45.2); HEMOGLOBIN 10.9 GM/dL (10.7-15.3); LYMPH % 4.8 % (8-40); MCH 27.1 pg (25.7-33.7); MCHC 32.7 g/dl (32.0-36.0); MEAN CELL VOLUME 82.8 fl (80-96); MEAN PLT VOLUME 8.6 fl (7.5-11.1); MONO % 4.6 % (3.8-10.2); NEUT % 89.3 % (42.8-82.8); PLATELET COUNT 227 10^3/uL (134-434); RBC 4.01 M/mm3 (3.60-5.2); RDW 18.7 % (11.6-15.6)
[2023-11-17 09:10] LABS: CHLORIDE 105 mmol/L (98-107); SODIUM 140 mmol/L (136-145)
[2023-11-17 09:12] LABS: ALBUMIN 3.7 g/dl (3.4-5.0); BLOOD UREA NITROGEN 92.2 mg/dL (7-18); CALCIUM 10.1 mg/dL (8.5-10.1); CO2 24 mmol/L (21-32)
[2023-11-17 09:13] LABS: GLUCOSE,RANDOM 193 mg/dL (74-106); MAGNESIUM 2.7 mg/dL (1.8-2.4)
[2023-11-17 09:15] LABS: SGPT/ALT 28 U/L (13-61)
[2023-11-17 09:16] LABS: SGOT/AST 22 U/L (15-37)
[2023-11-17 09:17] LABS: BILIRUBIN,TOTAL 0.7 mg/dL (0.2-1); PHOSPHOROUS 2.9 mg/dL (2.5-4.9); TOT PROT 7.4 g/dl (6.4-8.2)
[2023-11-17 09:18] LABS: ALK PHOS 119 U/L (45-117); ANION GAP 11 mmol/L (4-13); POTASSIUM 6.2 mmol/L (3.5-5.1)
[2023-11-17 09:19] LABS: CREATININE 10.1 mg/dL (0.55-1.3)
[2023-11-17] MEDS ORDERED: DEXTROSE 50%-WATER 25 GM/50 ML DISP.SYRIN ONE (09:50)
[2023-11-17] MEDS ORDERED: CALCIUM GLUC IN NACL, ISO-OSM 1 GM/50 ML BAG IVPB ONE (09:50)
[2023-11-17] MEDS ORDERED: INSULIN REGULAR HUMAN 100 UNITS/ML *VIAL ONE ×2 (09:50→10:08)
[2023-11-17] MEDS ORDERED: ALBUTEROL SO4 0.083% IH SOL 2.5 MG/3 ML VIAL.NEB. NEB ONE (09:50)
[2023-11-17] MEDS: CALCIUM GLUCONATE 10% - 1,000 MG/10 ML VIAL IVPB ONE (10:06)
[2023-11-17] MEDS: ALBUTEROL SO4 0.083% IH SOL 2.5 MG/3 ML VIAL.NEB. NEB ONE (10:06)
[2023-11-17] MEDS: INSULIN REGULAR HUMAN 100 UNITS/ML *VIAL IVPUSH ONE (10:06)
[2023-11-17] MEDS: DEXTROSE 50%-WATER - 25 GM/50 ML VIAL IVPUSH ONE (10:06)
[2023-11-17 11:33] LABS: CHLORIDE 105 mmol/L (98-107); POTASSIUM 5.8 mmol/L (3.5-5.1); SODIUM 137 mmol/L (136-145)
[2023-11-17 11:34] LABS: CALCIUM 9.7 mg/dL (8.5-10.1)
[2023-11-17 11:35] LABS: ANION GAP 7 mmol/L (4-13); BLOOD UREA NITROGEN 90.9 mg/dL (7-18); CO2 25 mmol/L (21-32); GLUCOSE,RANDOM 240 mg/dL (74-106)
[2023-11-17 11:38] LABS: CREATININE 10.1 mg/dL (0.55-1.3)
[2023-11-17] MEDS ORDERED: INSULIN ASPART SLIDING SCALE (NOVOLOG) 1 VIAL SQ ONE ×2 (11:47→18:50)
[2023-11-17] MEDS: INSULIN ASPART SLIDING SCALE (NOVOLOG) 1 VIAL SQ SCH (11:52)
[2023-11-17] MEDS ORDERED: amLODIPine BESYLATE 10 MG TABLET (FP) ONE (14:10)
[2023-11-17] MEDS ORDERED: TRIMETHOBENZAMIDE HCL 200MG/2ML INJ IM ONE (14:10)
[2023-11-17] MEDS ORDERED: SEVELAMER CARBONATE 800 MG TAB (FP) ONE ×2 (14:11→18:15)
[2023-11-17] MEDS ORDERED: SODIUM ZIRCONIUM CYCLOSILICATE (LOKELMA) 10 GM PACKET ONE (14:11)
[2023-11-17] MEDS: TRIMETHOBENZAMIDE HCL 200MG/2ML INJ IM PRN (14:16)
[2023-11-17] MEDS: SODIUM ZIRCONIUM CYCLOSILICATE (LOKELMA) 5 GM PACKET PO SCH (14:24)
[2023-11-17] MEDS: HEPARIN NA (PORCINE) 5,000 UNITS/ML 1ML VIAL SQ SCH (14:25)
[2023-11-17] MEDS: amLODIPine BESYLATE 10 MG TABLET (FP) PO SCH (14:25)
[2023-11-17] MEDS: SEVELAMER CARBONATE 800 MG TAB (FP) PO SCH (14:25)
[2023-11-17] MEDS ORDERED: SODIUM CHLORIDE 250 ML IV PRN (15:27)
[2023-11-17 15:34] VITALS: RESP 18
[2023-11-17] MEDS: HEPARIN NA (PORCINE) 5,000 UNITS/ML 1ML VIAL IVPUSH ONE (16:29)
[2023-11-17] MEDS: EPOETIN ALFA-EPBX 4,000 UNIT/ML VIAL SQ ONE (16:29)
[2023-11-17] MEDS: CARVEDILOL 25 MG TABLET (FP) PO SCH (21:27)
[2023-11-17] MEDS: ATORVASTATIN CA 20 MG TABLET (FP) PO SCH (21:28)
[2023-11-18] MEDS: FUROSEMIDE 40 MG TABLET (FP) PO SCH (09:41)
[2023-11-18 09:53] LABS: BASO % 1.1 % (0-2.0); EOS % 3.1 % (0-4.5); HEMATOCRIT 31.2 % (32.4-45.2); HEMOGLOBIN 10.1 GM/dL (10.7-15.3); LYMPH % 12.7 % (8-40); MCH 26.9 pg (25.7-33.7); MCHC 32.2 g/dl (32.0-36.0); MEAN CELL VOLUME 83.4 fl (80-96); MEAN PLT VOLUME 8.8 fl (7.5-11.1); MONO % 6.9 % (3.8-10.2); NEUT % 76.2 % (42.8-82.8); PLATELET COUNT 201 10^3/uL (134-434); RBC 3.74 M/mm3 (3.60-5.2); RDW 18.5 % (11.6-15.6); WHITE BLOOD COUNT 9.3 K/mm3 (4.0-10.0)
[2023-11-18 11:01] LABS: POTASSIUM 4.6 mmol/L (3.5-5.1)
[2023-11-18 11:03] LABS: CALCIUM 8.9 mg/dL (8.5-10.1); MAGNESIUM 2.4 mg/dL (1.8-2.4)
[2023-11-18 11:06] LABS: CREATININE 6.5 mg/dL (0.55-1.3)
[2023-11-18 11:07] LABS: PHOSPHOROUS 2.4 mg/dL (2.5-4.9)
[2023-11-18 11:13] LABS: BLOOD UREA NITROGEN 47.3 mg/dL (7-18)
[2023-11-18] MEDS: NAPH,MB-DB/K PH,MBDB POWDER PACKET PO ONE (11:29)
[2023-11-18 15:26] VITALS: BP 137/71; PULSE 73; TEMP 99
== END 2023-11-18 18:04 | disposition home or self-care (01) | DRG 682 ==
LOC: JER 07:35 → JERBED 09:47 → J4S 20:34
PROVIDERS: ADMIT Internal Medicine; ATTEND Nurse Practitioner Acute Care
PROC: 5A1D70Z Performance of Urinary Filtration, Intermittent, Less than 6 Hours Per Day (ICD-10-PCS; principal; 2023-11-17)
DX: I12.0 Hypertensive chronic kidney disease with stage 5 chronic kidney disease or end stage renal disease (principal); N18.6 End stage renal disease; E46 Unspecified protein-calorie malnutrition; R06.02 Shortness of breath; E11.22 Type 2 diabetes mellitus with diabetic chronic kidney disease; E87.5 Hyperkalemia; E78.5 Hyperlipidemia, unspecified; R42 Dizziness and giddiness; E11.319 Type 2 diabetes mellitus with unspecified diabetic retinopathy without macular edema; Z89.422 Acquired absence of other left toe(s); Z99.2 Dependence on renal dialysis; Z91.199 Patient's noncompliance with other medical treatment and regimen due to unspecified reason; Z68.21 Body mass index [BMI] 21.0-21.9, adult
CPT/HCPCS: 0241U-QW; 36415; 71046-TC-FY; 80048; 80053; 82962; 83036; 83735; 84100; 84484; 85025; 86803; 87340; 93005; 93010; 99285-25; J1644; Q5106

== ENCOUNTER 2023-12-14 04:59 | Day surgery (SDC) | payer MEDICARE, OTHER ==
[2023-12-07 16:27] VITALS: BMI 22.2
[2023-12-14 08:05] LABS: CHLORIDE 102 mmol/L (98-107); POTASSIUM 5.1 mmol/L (3.5-5.1); SODIUM 138 mmol/L (136-145)
[2023-12-14 08:06] LABS: CALCIUM 9.7 mg/dL (8.5-10.1)
[2023-12-14 08:07] LABS: ANION GAP 8 mmol/L (4-13); BLOOD UREA NITROGEN 55.9 mg/dL (7-18); CO2 29 mmol/L (21-32); GLUCOSE,RANDOM 153 mg/dL (74-106)
[2023-12-14 08:16] LABS: CREATININE 7.7 mg/dL (0.55-1.3)
[2023-12-14 14:06] VITALS: TEMP 97.5
[2023-12-14 14:09] VITALS: PULSE 65
[2023-12-14 14:11] VITALS: BP 146/56; RESP 16
== END 2023-12-14 10:40 | disposition home or self-care (01) ==
LOC: JASU-ENDO 04:59
PROVIDERS: ATTEND Internal Medicine Gastroenterology
PROC: 0DBL8ZX Excision of Transverse Colon, Via Natural or Artificial Opening Endoscopic, Diagnostic (ICD-10-PCS; 2023-12-14)
PROC: 06LY8CC Occlusion of Hemorrhoidal Plexus with Extraluminal Device, Via Natural or Artificial Opening Endoscopic (ICD-10-PCS; 2023-12-14)
PROC: 0DBL8ZX Excision of Transverse Colon, Via Natural or Artificial Opening Endoscopic, Diagnostic (ICD-10-PCS; 2023-12-14)
PROC: 0DB68ZX Excision of Stomach, Via Natural or Artificial Opening Endoscopic, Diagnostic (ICD-10-PCS; 2023-12-14)
PROC: 0DB78ZX Excision of Stomach, Pylorus, Via Natural or Artificial Opening Endoscopic, Diagnostic (ICD-10-PCS; 2023-12-14)
PROC: 0DBM8ZX Excision of Descending Colon, Via Natural or Artificial Opening Endoscopic, Diagnostic (ICD-10-PCS; principal; 2023-12-14 09:00)
DX: Z12.11 Encounter for screening for malignant neoplasm of colon (principal); K63.5 Polyp of colon; K64.8 Other hemorrhoids; K29.50 Unspecified chronic gastritis without bleeding; K31.7 Polyp of stomach and duodenum; Z87.19 Personal history of other diseases of the digestive system
CPT/HCPCS: 36415; 80048; 82962; 88305-TC; 88342-TC

== ENCOUNTER 2024-05-17 16:48 | Emergency (ER) | payer MEDICARE, OTHER ==
[2024-05-17 16:58] VITALS: BP 186/85; PULSE 71; RESP 16; TEMP 97.8; BMI 23.1
== END 2024-05-17 17:42 | disposition home or self-care (01) ==
LOC: JER 16:48
DX: I12.0 Hypertensive chronic kidney disease with stage 5 chronic kidney disease or end stage renal disease (principal); E11.22 Type 2 diabetes mellitus with diabetic chronic kidney disease; N18.6 End stage renal disease; Z99.2 Dependence on renal dialysis; F41.9 Anxiety disorder, unspecified
CPT/HCPCS: 93005; 93010; 99283-25

== ENCOUNTER → 2024-05-17 | Day surgery (SDC) | payer MEDICARE, OTHER ==
[~2024-05-17] MED LIST changes: +FENTANYL CITRATE/PF 50 MCG/ML VIAL ONE; +HEPARIN NA (PORCINE) 5,000 UNITS/ML 1ML VIAL ONE; -HEPARIN NA (PORCINE) 5,000 UNITS/ML 1ML VIAL SQ ONE; -LIDOCAINE HCL 1%, 10 MG/ML (20ML VIAL) INF ONE; +MIDAZOLAM HCL 2 MG/2 ML SINGLE DOSE VIAL ONE
[2024-05-17 13:27] LABS: EOS % 3.2 % (0-4.5); HEMATOCRIT 33.7 % (32.4-45.2); HEMOGLOBIN 11.1 GM/dL (10.7-15.3); LYMPH % 12.2 % (8-40); MCH 29.7 pg (25.7-33.7); MCHC 32.8 g/dl (32.0-36.0); MEAN CELL VOLUME 90.5 fl (80-96); MONO % 6.9 % (3.8-10.2); NEUT % 76.7 % (42.8-82.8); PLATELET COUNT 195 10^3/uL (134-434); RBC 3.73 M/mm3 (3.60-5.2); RDW 15.8 % (11.6-15.6); WHITE BLOOD COUNT 9.2 K/mm3 (4.0-10.0)
[2024-05-17 13:40] LABS: INR 1.18 (0.83-1.09)
[2024-05-17] MEDS: FENTANYL CITRATE/PF 50 MCG/ML VIAL IVPUSH ONE (15:28)
[2024-05-17] MEDS: MIDAZOLAM HCL 2 MG/2 ML SINGLE DOSE VIAL IVPUSH ONE (15:28)
[2024-05-17 15:34] VITALS: RESP 14
[2024-05-17 16:45] VITALS: BP 225/79; PULSE 74
== END | disposition home or self-care (01) ==
LOC: JRADIR 12:56
PROVIDERS: ATTEND Surgery
PROC: 05783ZZ Dilation of Left Axillary Vein, Percutaneous Approach (ICD-10-PCS; principal; 2024-05-17)
DX: T82.858A Stenosis of other vascular prosthetic devices, implants and grafts, initial encounter (principal); N18.6 End stage renal disease; Z99.2 Dependence on renal dialysis
CPT/HCPCS: 36415; 37248; 75820-TC-FY; 75978-TC-FY; 76000-TC-FY; 76998-TC; 85025; 85610; C1725; C1769; C1887; C1894

== ENCOUNTER 2024-05-19 09:29 | Observation (INO) | payer MEDICARE, OTHER ==
[2024-05-19 09:42] VITALS: BMI 22.5
[2024-05-19 11:10] LABS: BASO % 0.6 % (0-2.0); EOS % 1.3 % (0-4.5); HEMATOCRIT 36.4 % (32.4-45.2); HEMOGLOBIN 11.9 GM/dL (10.7-15.3); LYMPH % 9.2 % (8-40); MCH 29.5 pg (25.7-33.7); MCHC 32.6 g/dl (32.0-36.0); MEAN CELL VOLUME 90.7 fl (80-96); MEAN PLT VOLUME 7.7 fl (7.5-11.1); MONO % 8.1 % (3.8-10.2); NEUT % 80.8 % (42.8-82.8); PLATELET COUNT 176 10^3/uL (134-434); RBC 4.02 M/mm3 (3.60-5.2); RDW 15.9 % (11.6-15.6); WHITE BLOOD COUNT 9.2 K/mm3 (4.0-10.0)
[2024-05-19 11:16] LABS: INR 1.21 (0.83-1.09); PROTHROMBIN TIME (PATIENT) 13.3 SEC (9.7-13.0)
[2024-05-19 11:18] LABS: ACTIVATED PTT 32.9 SECONDS (25.2-36.5)
[2024-05-19] MEDS ORDERED: LIDOCAINE 5% TOPICAL PATCH ONE ×2 (11:25→22:20)
[2024-05-19] MEDS: LIDOCAINE 5% TOPICAL PATCH TP ONE (11:29)
[2024-05-19 11:31] LABS: CHLORIDE 97 mmol/L (98-107); SODIUM 136 mmol/L (136-145)
[2024-05-19 11:33] LABS: ALBUMIN 3.8 g/dl (3.4-5.0); ANION GAP 7 mmol/L (4-13); BLOOD UREA NITROGEN 39.9 mg/dL (7-18); CO2 33 mmol/L (21-32); GLUCOSE,RANDOM 250 mg/dL (74-106); MAGNESIUM 2.5 mg/dL (1.8-2.4)
[2024-05-19 11:36] LABS: SGOT/AST 14 U/L (15-37); SGPT/ALT 19 U/L (13-61)
[2024-05-19 11:37] LABS: CREATININE 7.6 mg/dL (0.55-1.3)
[2024-05-19 11:38] LABS: BILIRUBIN,TOTAL 0.6 mg/dL (0.2-1); TOT PROT 7.3 g/dl (6.4-8.2)
[2024-05-19 11:39] LABS: ALK PHOS 79 U/L (45-117)
[2024-05-19 13:02] LABS: HIV INTERPRETATION NEGATIVE (NEGATIVE)
[2024-05-19] MEDS ORDERED: ACETAMINOPHEN INJECTION 100 ML ONE (18:13)
[2024-05-19] MEDS: ACETAMINOPHEN 1000 MG/100 ML BAG IVPB ONE (18:19)
[2024-05-19] MEDS ORDERED: CARVEDILOL 25 MG TABLET (FP) ONE (22:20)
[2024-05-19] MEDS ORDERED: ATORVASTATIN CA 40 MG TABLET (FP) ONE (22:20)
[2024-05-19] MEDS ORDERED: HEPARIN NA (PORCINE) 5,000 UNITS/ML 1ML VIAL ONE (22:20)
[2024-05-19] MEDS: LIDOCAINE PATCH REMOVAL MC SCH ×2 (22:31→22:58)
[2024-05-19] MEDS: CARVEDILOL 25 MG TABLET (FP) PO SCH (22:31)
[2024-05-19] MEDS: HEPARIN NA (PORCINE) 5,000 UNITS/ML 1ML VIAL SQ SCH (22:31)
[2024-05-19] MEDS: ATORVASTATIN CA 40 MG TABLET (FP) PO SCH (22:31)
[2024-05-20] MEDS ORDERED: SODIUM CHLORIDE 250 ML IV PRN ×2 (07:00→14:11)
[2024-05-20 07:39] LABS: BASO % 0.9 % (0-2.0); EOS % 4.1 % (0-4.5); HEMATOCRIT 35.3 % (32.4-45.2); HEMOGLOBIN 12.2 GM/dL (10.7-15.3); MCH 30.8 pg (25.7-33.7); MCHC 34.6 g/dl (32.0-36.0); MEAN PLT VOLUME 8.1 fl (7.5-11.1); MONO % 11.5 % (3.8-10.2); NEUT % 64.5 % (42.8-82.8); PLATELET COUNT 167 10^3/uL (134-434); RBC 3.97 M/mm3 (3.60-5.2); RDW 15.9 % (11.6-15.6); WHITE BLOOD COUNT 7.6 K/mm3 (4.0-10.0)
[2024-05-20 08:01] LABS: CHLORIDE 97 mmol/L (98-107); SODIUM 135 mmol/L (136-145)
[2024-05-20 08:05] LABS: CALCIUM 8.5 mg/dL (8.5-10.1)
[2024-05-20 08:06] LABS: ALBUMIN 3.5 g/dl (3.4-5.0); ANION GAP 9 mmol/L (4-13); BLOOD UREA NITROGEN 58.1 mg/dL (7-18); CO2 29 mmol/L (21-32); GLUCOSE,RANDOM 157 mg/dL (74-106); MAGNESIUM 2.4 mg/dL (1.8-2.4)
[2024-05-20 08:09] LABS: PHOSPHOROUS 5.5 mg/dL (2.5-4.9); SGOT/AST 10 U/L (15-37); SGPT/ALT 15 U/L (13-61)
[2024-05-20 08:10] LABS: BILIRUBIN,TOTAL 0.9 mg/dL (0.2-1)
[2024-05-20 08:11] LABS: CREATININE 9.2 mg/dL (0.55-1.3); TOT PROT 6.6 g/dl (6.4-8.2)
[2024-05-20 08:12] LABS: ALK PHOS 73 U/L (45-117)
[2024-05-20] MEDS: ACETAMINOPHEN 1000 MG/100 ML BAG IVPB PRN (12:30)
[2024-05-20] MEDS: amLODIPine BESYLATE 10 MG TABLET (FP) PO SCH (12:31)
[2024-05-20] MEDS: LIDOCAINE 4% PATCH TP SCH (12:32)
[2024-05-20] MEDS: INSULIN ASPART SLIDING SCALE (NOVOLOG) 1 VIAL SQ SCH (18:18)
[2024-05-20] MEDS ORDERED: POLYETHYLENE GLYCOL (HEALTHYLAX) 3350 17 GM PACKET PO SCH (22:00)
[2024-05-20] MEDS ORDERED: POLYETHYLENE GLYCOL (HEALTHYLAX) 3350 17 GM PACKET PO PRN (22:00)
[2024-05-21 09:32] LABS: HEMATOCRIT 31.9 % (32.4-45.2); HEMOGLOBIN 10.6 GM/dL (10.7-15.3); MCH 30.2 pg (25.7-33.7); MCHC 33.3 g/dl (32.0-36.0); MEAN CELL VOLUME 90.6 fl (80-96); PLATELET COUNT 153 10^3/uL (134-434); RBC 3.52 M/mm3 (3.60-5.2); RDW 15.7 % (11.6-15.6); WHITE BLOOD COUNT 6.8 K/mm3 (4.0-10.0)
[2024-05-21 09:59] LABS: CHLORIDE 98 mmol/L (98-107); POTASSIUM 4.3 mmol/L (3.5-5.1); SODIUM 138 mmol/L (136-145)
[2024-05-21 10:01] LABS: ALBUMIN 3.3 g/dl (3.4-5.0); ANION GAP 8 mmol/L (4-13); BLOOD UREA NITROGEN 40.2 mg/dL (7-18); CALCIUM 8.5 mg/dL (8.5-10.1); CO2 32 mmol/L (21-32); GLUCOSE,RANDOM 164 mg/dL (74-106)
[2024-05-21 10:04] LABS: SGOT/AST 16 U/L (15-37); SGPT/ALT 16 U/L (13-61)
[2024-05-21 10:05] LABS: CREATININE 7.7 mg/dL (0.55-1.3)
[2024-05-21 10:06] LABS: BILIRUBIN,TOTAL 0.5 mg/dL (0.2-1); TOT PROT 6.4 g/dl (6.4-8.2)
[2024-05-21 10:07] LABS: ALK PHOS 67 U/L (45-117)
[2024-05-22 07:32] LABS: BASO % 1.1 % (0-2.0); HEMATOCRIT 33.4 % (32.4-45.2); HEMOGLOBIN 11.2 GM/dL (10.7-15.3); LYMPH % 19.6 % (8-40); MCH 30.1 pg (25.7-33.7); MCHC 33.5 g/dl (32.0-36.0); MEAN CELL VOLUME 90.1 fl (80-96); MEAN PLT VOLUME 8.2 fl (7.5-11.1); NEUT % 61.3 % (42.8-82.8); PLATELET COUNT 152 10^3/uL (134-434); RBC 3.71 M/mm3 (3.60-5.2); RDW 15.4 % (11.6-15.6); WHITE BLOOD COUNT 8.3 K/mm3 (4.0-10.0)
[2024-05-22 07:34] LABS: POTASSIUM 4.5 mmol/L (3.5-5.1)
[2024-05-22 07:38] LABS: BLOOD UREA NITROGEN 39.6 mg/dL (7-18); CALCIUM 8.5 mg/dL (8.5-10.1)
[2024-05-22 07:41] LABS: CREATININE 6.2 mg/dL (0.55-1.3); PHOSPHOROUS 5.2 mg/dL (2.5-4.9)
[2024-05-22] MEDS: INSULIN ASPART SLIDING SCALE (NOVOLOG) 1 VIAL SQ SCH (12:11)
[2024-05-22] MEDS: ACETAMINOPHEN 500 MG TABLET (FP) PO ONE (14:09)
[2024-05-22 14:42] VITALS: RESP 18
[2024-05-22 17:15] VITALS: BP 147/78; PULSE 67; TEMP 98.8
== END 2024-05-22 18:20 | disposition home or self-care (01) ==
LOC: JER 09:29 → JERBED 16:10 → J4W 05-20 11:53
PROVIDERS: ATTEND Internal Medicine
PROC: 3E033NZ Introduction of Analgesics, Hypnotics, Sedatives into Peripheral Vein, Percutaneous Approach (ICD-10-PCS; principal; 2024-05-19)
PROC: 3E023GC Introduction of Other Therapeutic Substance into Muscle, Percutaneous Approach (ICD-10-PCS; 2024-05-19)
PROC: 3E013VG Introduction of Insulin into Subcutaneous Tissue, Percutaneous Approach (ICD-10-PCS; 2024-05-19)
DX: S32.2XXA Fracture of coccyx, initial encounter for closed fracture (principal); W18.39XA Other fall on same level, initial encounter; Y93.89 Activity, other specified; Y92.002 Bathroom of unspecified non-institutional (private) residence as the place of occurrence of the external cause; E11.22 Type 2 diabetes mellitus with diabetic chronic kidney disease; E11.319 Type 2 diabetes mellitus with unspecified diabetic retinopathy without macular edema; I12.0 Hypertensive chronic kidney disease with stage 5 chronic kidney disease or end stage renal disease; N18.6 End stage renal disease; Z99.2 Dependence on renal dialysis; D64.9 Anemia, unspecified; R42 Dizziness and giddiness
CPT/HCPCS: 36415; 70450-TC; 71045-TC-FY; 72125-TC; 72131-TC; 80048; 80053; 82962; 83735; 84100; 84484; 85025; 85027; 85610; 85730; 86704; 86803; 87340; 87389; 87517; 93005; 93010; 96372; 96374; 96376; 97116-GP; 99285-25; G0378; J0131; J1644

== ENCOUNTER 2024-07-06 22:52 | Inpatient (IN) | payer MEDICARE, OTHER ==
[2024-07-07 00:43] LABS: ABSOLUTE IMMATURE GRANULOCYTES 0.07 x10^3/uL (0.0-0.031); BASOPHILS # 0.06 x10^3/uL (0.01-0.08); EOSINOPHIL % 3.3 % (0.7-5.8); EOSINOPHILS # 0.33 x10^3/uL (0.04-0.36); HEMATOCRIT 29.4 % (34.1-44.9); HEMOGLOBIN 9.4 g/dL (11.2-15.7); MEAN CELL VOLUME 93.3 fl (79.4-94.8); MEAN PLT VOLUME 11.1 fl (9.4-12.3); MONOCYTE # 0.93 x10^3/uL (0.24-0.86); MONOCYTE % 9.2 % (4.7-12.5); PLATELET COUNT 188 x10^3/uL (182-369); RDW 13.2 % (12.4-16.4)
[2024-07-07 01:10] LABS: CHLORIDE 100 mmol/L (98-107); POTASSIUM 5.8 mmol/L (3.5-5.1); SODIUM 136 mmol/L (136-145)
[2024-07-07 01:13] LABS: ALBUMIN 3.3 g/dl (3.4-5.0); CALCIUM 10.1 mg/dL (8.5-10.1)
[2024-07-07 01:14] LABS: ANION GAP 8 mmol/L (4-13); BLOOD UREA NITROGEN 77.6 mg/dL (7-18); CO2 28 mmol/L (21-32); GLUCOSE,RANDOM 293 mg/dL (74-106); MAGNESIUM 2.1 mg/dL (1.8-2.4)
[2024-07-07 01:17] LABS: PHOSPHOROUS 5.1 mg/dL (2.5-4.9); SGOT/AST 27 U/L (15-37); SGPT/ALT 37 U/L (13-61)
[2024-07-07 01:18] LABS: BILIRUBIN,TOTAL 0.6 mg/dL (0.2-1); TOT PROT 6.9 g/dl (6.4-8.2)
[2024-07-07 01:20] LABS: ALK PHOS 115 U/L (45-117)
[2024-07-07 01:22] LABS: N-TERMINAL BNP 21041.6 pg/ml (5-125)
[2024-07-07 01:23] LABS: CREATININE 8.9 mg/dL (0.55-1.3)
[2024-07-07] MEDS ORDERED: SODIUM ZIRCONIUM CYCLOSILICATE (LOKELMA) 10 GM PACKET ONE (02:52)
[2024-07-07] MEDS: SODIUM ZIRCONIUM CYCLOSILICATE (LOKELMA) 5 GM PACKET PO SCH (02:58)
[2024-07-07] MEDS: ONDANSETRON 4 MG TABLET PO PRN (05:30)
[2024-07-07] MEDS: HEPARIN NA (PORCINE) 5,000 UNITS/ML 1ML VIAL SQ SCH (05:49)
[2024-07-07] MEDS: INSULIN ASPART SLIDING SCALE (NOVOLOG) 1 VIAL SQ SCH (07:30)
[2024-07-07] MEDS: INSULIN (NOVOLOG) ASPART 100 UNITS/ML 10ML VIAL SQ SCH (07:31)
[2024-07-07] MEDS ORDERED: SODIUM CHLORIDE 250 ML IV PRN (07:39)
[2024-07-07] MEDS: HEPARIN NA (PORCINE) 5,000 UNITS/ML 1ML VIAL IVPUSH ONE (07:42)
[2024-07-07] MEDS: EPOETIN ALFA-EPBX 10,000 UNIT/ML VIAL SQ ONE (08:53)
[2024-07-07] MEDS ORDERED: SODIUM ZIRCONIUM CYCLOSILICATE (LOKELMA) 5 GM PACKET PO SCH (10:00)
[2024-07-07] MEDS: amLODIPine BESYLATE 10 MG TABLET (FP) PO SCH (12:47)
[2024-07-07] MEDS: CARVEDILOL 25 MG TABLET (FP) PO SCH (12:47)
[2024-07-07] MEDS: FUROSEMIDE 20 MG TABLET (FP) PO SCH (12:48)
[2024-07-07] MEDS: SODIUM BICARBONATE 650 MG TABLET PO SCH (12:48)
[2024-07-07 15:35] VITALS: BMI 22.4
[2024-07-07] MEDS: FUROSEMIDE 40 MG/4 ML INJECTABLE VIAL IVPUSH ONE (16:22)
[2024-07-07] MEDS: HEPARIN INFUSION - 25,000 UNITS/500 ML INFUS.BAG IVPB SCH (16:43)
[2024-07-07] MEDS: ASPIRIN COATED 81 MG TABLET.EC PO SCH (17:51)
[2024-07-07 18:27] LABS: POTASSIUM 4.5 mmol/L (3.5-5.1)
[2024-07-07 18:29] LABS: CALCIUM 8.9 mg/dL (8.5-10.1)
[2024-07-07 18:33] LABS: CREATININE 5.2 mg/dL (0.55-1.3)
[2024-07-07 18:35] LABS: BLOOD UREA NITROGEN 35.2 mg/dL (7-18)
[2024-07-07] MEDS: ATORVASTATIN CA 80 MG TABLET (FP) PO SCH (21:45)
[2024-07-07] MEDS: INSULIN GLARGINE (LANTUS) 100 UNITS/ML UNITS SQ SCH (21:45)
[2024-07-07] MEDS: CLOPIDOGREL BISULFATE 75 MG TABLET (FP) PO SCH (21:45)
[2024-07-07] MEDS ORDERED: ATORVASTATIN CA 40 MG TABLET (FP) PO SCH (22:00)
[2024-07-07] MEDS ORDERED: FUROSEMIDE 100 MG/10 ML INJECTABLE VIAL IVPB SCH (22:00)
[2024-07-07] MEDS: HEPARIN NA (PORCINE) 5,000 UNITS/ML 1ML VIAL IVPUSH PRN (23:00)
[2024-07-08] MEDS ORDERED: FUROSEMIDE 100 MG/10 ML INJECTABLE VIAL IVPUSH SCH (06:00)
[2024-07-08] MEDS: FUROSEMIDE 100 MG/10 ML INJECTABLE VIAL IVPUSH ONE (06:50)
[2024-07-08 08:43] LABS: HEMATOCRIT 25.3 % (34.1-44.9); HEMOGLOBIN 8.1 g/dL (11.2-15.7); PLATELET COUNT 161 x10^3/uL (182-369); RDW 13.2 % (12.4-16.4)
[2024-07-08 09:00] VITALS: RESP 18
[2024-07-08] MEDS: HEPARIN NA (PORCINE) 5,000 UNITS/ML 1ML VIAL IVPUSH PRN (09:23)
[2024-07-08 14:47] VITALS: BP 156/69; PULSE 66; TEMP 98.8
== END 2024-07-08 15:10 | disposition short-term general hospital (02) | DRG 280 ==
LOC: JER 22:52 → JERBED 07-07 01:29 → OBSVTOIN 07-07 03:20 → J4W 07-07 04:19
PROVIDERS: ADMIT Hospitalist; ATTEND Internal Medicine
PROC: 5A1D70Z Performance of Urinary Filtration, Intermittent, Less than 6 Hours Per Day (ICD-10-PCS; principal; 2024-07-07)
DX: I21.4 Non-ST elevation (NSTEMI) myocardial infarction (principal); N18.6 End stage renal disease; I12.0 Hypertensive chronic kidney disease with stage 5 chronic kidney disease or end stage renal disease; E11.22 Type 2 diabetes mellitus with diabetic chronic kidney disease; E87.70 Fluid overload, unspecified; D63.1 Anemia in chronic kidney disease; E87.5 Hyperkalemia; R29.6 Repeated falls; E11.319 Type 2 diabetes mellitus with unspecified diabetic retinopathy without macular edema; E78.5 Hyperlipidemia, unspecified; Z99.2 Dependence on renal dialysis
CPT/HCPCS: 0241U-QW; 36415; 71045-TC-FY; 71046-TC-FY; 80048; 80053; 82962; 83735; 83880; 84100; 84484; 85025; 85027; 85730; 87340; 93005; 93010; 93306-TC; 99285-25; G0378; J1644; Q5106